=== PATIENT | male | born 1935 | race Caucasian/White ===

== ENCOUNTER → 2018-07-31 | Outpatient (CLI) | payer MEDICARE, BC ==
[~2018-07-31] VITALS: Ht 182.9 cm; Wt 104.3 kg
[~2018-07-31] MED LIST: AML5T PO; ASP81CT PO; COLC0.6T7 PO; FLUT50DI INH; IBUP200T48 PO; LRT10T; MELO-195 PO; METH2.5T PO; MTF500T PO; PANT40SU PO; PROP120C3 PO; REGADENOSON 0.4 MG/5 ML SYR (LEXISCAN) IV ONE; SMV10T PO; TRAM50TA2 PO; Tramadol Hcl PO; [UNRECOGNIZED DRUG - OTHER]
[2018-07-31] MEDS: CATHETER FLUSH 10 ML SYR IV PRN ×2 (07:32→09:12)
[2018-07-31 09:10] VITALS: BP 155/90
--- NOTE | 2018-08-01 13:45 | STRESS TEST ---
DATE OF SERVICE: 07/31/2018 RESTING AND POST REGADENOSON TECHNETIUM-99M TETROFOSMIN SPECT CT IMAGING ORDERING PHYSICIAN: Adriane Lubin APRN PRIMARY CARE PHYSICIAN: Dr. Roberson. CLINICAL DIAGNOSIS: Coronary artery disease. Baseline images were carried out after injection of 10.12 mCi of technetium-99m Tetrofosmin for stress imaging. This was followed by 0.4 mg of regadenoson and 31.3 mCi of technetium-99m Tetrofosmin for stress imaging. The electrocardiogram showed sinus rhythm with right bundle branch block. The electrocardiogram did not change significantly with regadenoson infusion. The patient tolerated the procedure well. Review of images at rest and following stress does not indicate significant perfusion defects consistent with significant myocardial ischemia or infarction. Gated images show normal global left ventricular systolic function and normal regional wall motion. Left ventricular ejection fraction is calculated to be 65%. Left ventricular end diastolic volume is 55 mL. TID is absent (1.08). CONCLUSIONS: 1. No evidence of any significant myocardial ischemia or infarction is seen. 2. Normal regional wall motion. 3. Normal global left ventricular systolic function with a calculated ejection fraction of 65%. Job ID: [id number] DocumentID: [id number] Dictated Date: 08/01/2018 12:44:47 [employer] Date: 08/01/2018 13:45:10 Dictated By: SWATI GONZALEZ MD, MA, FACP, FACC,
== END ==
LOC: CARD 07:17
PROVIDERS: ATTEND Nurse Practitioner Family
DX: I25.10 Atherosclerotic heart disease of native coronary artery without angina pectoris (principal); I77.9 Disorder of arteries and arterioles, unspecified
CPT/HCPCS: 78452; 93017

== ENCOUNTER 2019-06-22 15:03 | Emergency (ER) | payer MEDICARE, BC ==
[~2019-06-22] VITALS: Ht 182.9 cm; Wt 104.5 kg
[~2019-06-22 15:03] MED LIST changes: -REGADENOSON 0.4 MG/5 ML SYR (LEXISCAN) IV ONE
--- NOTE | 2019-06-22 15:03 | NUR ---
NOTIFIED RN AND HOUSE SUP JYOTI OF PT CONDITION WHEN CHECKING IN.
--- OUTSIDE RECORDS SUMMARY | 2019-06-22 15:14 | XMS REPORT | CCD ---
Author Author Ravinder Roberson Organization Renita Roberson MD, [facility] Address [address] [place] [address] Phone Care Team Providers Care Driver License Reviewing Officer Name Role Phone PP Unavailable CCM Unavailable Summary Purpose Interface Exchange Insurance Providers Payer name Policy type / Coverage type Covered green party ID Effective Begin Date Effective End Date WPS Medicare Part B Medicare Part B [id number] Unknown [facility] icare Part B [id number] Un known Family history Father Diagnosis Age At Onset Hypertension Unknown Brother Diagnosis Age At Onset Coronary Artery Disease Unknown Cancer Unknown Hypertension Unknown Mother Diagnosis Age At Onset Hypertension Unknown Social History Social History Element Codes Description Effective Dates Marital status Unknown M arried 12/10/2013 Number of children Unknown 2 12/10/2013 Employment Unknown Retir ed 12/10/[address]: 2375803 Former smoker quit 1980 12/10/[address]: 732036098 Never drinks alcohol 12/10/2013 Allergies, Adverse Reactions, Alerts Substance Reaction Codes Entered Date Inactivated Date Status * NO KNOWN ENVIRONME NTAL ALLERGIES Unknown 12/10/2013 No Inactive Date Active * NO KNOWN FOOD GERSON RGIES Unknown 12/10/2013 No Inactive Date Active CODEINE abdominal pain RxNorm: 2670 12/10/2013 No Inactive Date Active hydrocodone abdominal pain Unknown 12/10/2013 No Inactive Date Active Past Medical History Illness Codes Condition Status Onset Date Resolved Date Actinic keratosis ICD-9: 702.0 ICD-10: L57.0 Active 01/12/2015 Unknown Essential (primary) hypertension ICD-9: 401.1 ICD-10: I10 Active 05/30/2018 Unknown Essential tremor ICD-9: 333.1 ICD-10: G25.0 Active 03/13/2018 Unknown Type 2 diabetes glenn itus without complications ICD-9: 250.00 ICD-10: E11.9 Active 01/18/2016 Unknown Essential (primary) hypertension ICD-9: 401.9 ICD-10: I10 Active 12/10/2013 Unknown Hypothyroidism, unsp ecified ICD-9: 244.9 ICD-10: E03.9 Active 01/17/2017 Unknown Other acute sinusitis ICD-9: 461.8 ICD-10: J01.80 Active 06/28/2018 Unknown Other allergic rhinitis ICD-9: 477.8 ICD-10: J30.89 Active 06/28/2018 Unknown Mixed hyperlipidemia ICD-9: 272.2 ICD-10: E78.2 Active 01/18/2016 Unknown Myalgia, other site ICD- 9: 729.1 ICD-10: M79.18 Active 05/30/2018 Unknown Sciatica Unknown Active 01/16/2018 Unknow n Lumbago with sciatic a, right side ICD-9: 724.3 ICD-10: M54.41 Active 01/16/2018 Unknown Hypothryroidism Unknown Active 01/17/2017 Unknow n Diabetes Unknown Active 07/14/2016 Unknow n Personal history of diseases of the skin and subcutaneous tissue ICD-9: V13.3 ICD-10: Z87.2 Active 01/12/2015 Unknown Other abnormal glucose ICD-9: 790.29 ICD-10: R73.09 Active 12/02/2014 Unknown Hypertension Unknown Active 12/10/2013 Unknow n Benign paroxysmal po sitional vertigo ICD-9: 386.11 Active Unknown ESSENTIAL HYPERTENSION ICD-9: 401.9 Active 12/10/2013 Unknown Wrist pain, chronic ICD- 9: 719.43 Active 12/10/2013 Unknown Problems Condition Codes Effectiv e Dates Condition Status Actinic keratosis ICD-9: 702.0 ICD-10: L57.0 01/12/2015 Active Essential (primary) hypertension ICD-9: 401.1 ICD-10: I10 05/30/2018 Active Essential tremor ICD-9: 333.1 ICD-10: G25.0 03/13/2018 Active Type 2 diabetes glenn itus without complications ICD-9: 250.00 ICD-10: E11.9 01/18/2016 Active Essential (primary) hypertension ICD-9: 401.9 ICD-10: I10 12/10/2013 Active Hypothyroidism, unsp ecified ICD-9: 244.9 ICD-10: E03.9 01/17/2017 Active Other acute sinusitis ICD-9: 461.8 ICD-10: J01.80 06/28/2018 Active Other allergic rhinitis ICD-9: 477.8 ICD-10: J30.89 06/28/2018 Active Mixed hyperlipidemia ICD-9: 272.2 ICD-10: E78.2 01/18/2016 Active Myalgia, other site ICD- 9: 729.1 ICD-10: M79.18 05/30/2018 Active Sciatica Unknown 01/16/2018 Active Lumbago with sciatic a, right side ICD-9: 724.3 ICD-10: M54.41 01/16/2018 Active Hypothryroidism Unknown 01/17/2017 Active Diabetes Unknown 07/14/2016 Active Personal history of diseases of the skin and subcutaneous tissue ICD-9: V13.3 ICD-10: Z87.2 01/12/2015 Active Other abnormal glucose ICD-9: 790.29 ICD-10: R73.09 12/02/2014 Active Hypertension Unknown 12/10/2013 Active Benign paroxysmal po sitional vertigo ICD-9: 386.11 12/10/2013 Active ESSENTIAL HYPERTENSION ICD-9: 401.9 12/10/2013 Active Wrist pain, chronic ICD- 9: 719.43 12/10/2013 Active Medications Medication Codes Instruc tions Start Date Stop Date Sta Fill Instructions metformin ER 500 mg tablet,extended release 24hr RxNorm: 3945138 TAKE 1 TABLET BY WILMER TH TWICE DAILY 10/15/2018 No Stop Date Active metformin ER 500 mg tablet,extended release 24hr RxNorm: 3148403 TAKE 1 TABLET BY WILMER TH TWICE DAILY 10/15/2018 No Stop Date Active metformin ER 500 mg tablet,extended release 24hr RxNorm: 6412523 TAKE 1 TABLET BY WILMER TH TWICE DAILY 10/15/2018 No Stop Date Active Kenalog 40 mg/mL darrian pension for injection RxNorm: 3476922 Milliliter(s) Inj 06/28/2018 06/28/2018 In active Keflex 500 mg capsule RxNorm: 723309 1 Capsule(s) PO TID 06/28/2018 07/07/2018 Inactive atorvastatin 10 mg t ablet RxNorm: 362972 1 Tablet(s) PO QHS 05/30/2018 05/24/2019 Active amlodipine 10 mg tablet RxNorm: 802364 1 Tablet(s) PO daily by Dr. Jade 05/30/2018 12/25/2018 Ac tive Requip 0.5 mg tablet RxNorm: 778419 1 Tablet(s) PO BID morning and early remi felecia 04/30/2018 08/28/2018 Inactive he just filled a requip 0.25mg rx - he w ill double his meds then call when he needs this filled metformin ER 500 mg tablet,extended release 24hr RxNorm: 3936409 Tablet(s) TAKE ONE TABLET BY MOUTH TWICE DAILY 04/30/2018 10/14/2018 Inactive Requip 0.5 mg tablet RxNorm: 035805 1 Tablet(s) PO BID morning and early remi felecia 04/18/2018 04/29/2018 Inactive he just filled a requip 0.25mg rx - he w ill double his meds then call when he needs this filled amlodipine 5 mg tablet RxNorm: 285309 1 Tablet(s) PO daily by Dr. Jade 03/13/2018 05/29/2018 In active Requip 0.25 mg tablet RxNorm: 924740 1 Tablet(s) PO BID morning and early remi felecia 03/13/2018 04/17/2018 Inactive triamcinolone aceton andrews 0.1 % topical cream RxNorm: 3324239 1 Application TOP BI D as needed 01/16/2018 05/15/2018 Inactive he would like 3 15 gram tub es triamcinolone aceton andrews 0.1 % topical cream RxNorm: 9126192 1 Application TOP BI D as needed 01/16/2018 01/15/2018 Inactive he would like 3 15 gram tub es amlodipine 10 mg tablet RxNorm: 770003 1 Tablet(s) PO daily by Dr. Jade 01/16/2018 03/12/2018 In active metformin ER 500 mg tablet,extended release 24hr RxNorm: 4535644 TAKE ONE TABLET BY MOUTH TWICE DAILY 12/04/2017 04/29/2018 Inactive metformin ER 500 mg tablet,extended release 24hr RxNorm: 2391214 TAKE ONE TABLET BY MOUTH TWICE DAILY 03/22/2017 12/03/2017 Inactive Tylenol PM Extra Str ength 25 mg-500 mg tablet RxNorm: 4888603 1 Tablet(s) PO QHS 01/17/2017 No Stop Date Active triamcinolone aceton andrews 0.1 % topical cream RxNorm: 7862236 1 Application TOP BI D as needed 01/17/2017 05/16/2017 Inactive metformin ER 500 mg tablet,extended release 24hr RxNorm: 401216 TAKE ONE TABLET BY MOUTH TWICE DAILY 09/27/2016 03/21/2017 Inactive triamcinolone aceton andrews 0.1 % topical cream RxNorm: 2670423 1 Application TOP BI D as needed 07/19/2016 09/16/2016 Inactive metformin ER 500 mg tablet,extended release 24hr RxNorm: 364589 1 Tablet(s) PO BID 08/19/2015 09/26/2016 In active metformin ER 500 mg tablet,extended release 24hr RxNorm: 924486 1 Tablet(s) PO BID 08/14/2015 08/18/2015 In active metformin ER 500 mg tablet,extended release 24hr RxNorm: 014938 1 Tablet(s) PO BID 04/09/2015 08/13/2015 In active triamcinolone aceton andrews 0.1 % topical cream RxNorm: 9095358 1 Application TOP BI D as needed 01/13/2015 07/18/2016 Inactive Flonase Allergy Reli ef 50 mcg/actuation nasal spray,suspension RxNorm: 1 Shepherd NASAL BID 12/03/2014 01/12/2015 Inactive triamcinolone aceton andrews 0.1 % topical cream RxNorm: 5853727 1 Application TOP BI D as needed 06/04/2014 01/12/2015 Inactive metformin ER 500 mg tablet,extended release 24hr RxNorm: 712830 1 Tablet(s) PO BID 03/05/2014 04/08/2015 In active multivitamin oral RxNorm: 55278 oral No Start Date Active Vitamin B-12 oral RxNorm: 40653 oral No Start Date Active Baby Aspirin 81 mg c hewable tablet RxNorm: 984947 1 Tablet(s) PO daily No Start Date Active Inderal LA 160 mg ca psule,extended release RxNorm: 272938 1 Capsule(s) PO daily No Start Date Active amlodipine 5 mg tablet RxNorm: 341275 1 Tablet(s) PO daily No Start Date 01/15/2018 Inactive multivitamin tablet RxNorm: 1 Tablet(s) PO daily No Start Date 01/16/2017 Inactive tramadol 50 mg tablet RxNorm: 789083 1 Tablet(s) PO TID No Start Date 07/21/2015 Inactive Tylenol PM Extra Str ength 25 mg-500 mg tablet RxNorm: 3025229 2 Tablet(s) PO QHS No Start Date 01/16/2017 Inactive metformin ER 500 mg tablet,extended release 24hr RxNorm: 796357 1 Tablet(s) PO BID No Start Date 03/04/2014 Inactive Methotrexate (Anti-R heumatic) 2.5 mg tablet RxNorm: 760846 8 Tablet(s) PO one ti me per week No Start Date 07/21/2015 Inactive Protonix 40 mg table t,delayed release RxNorm: 699815 1 Tablet(s) PO daily No Start Date 12/02/2014 Inactive Vitamin B-12 1,000 m cg tablet RxNorm: 095340 1 Tablet(s) PO daily No Start Date 01/16/2017 Inactive simvastatin 10 mg ta blet RxNorm: 967402 1 Tablet(s) PO daily No Start Date 05/29/2018 Inactive propranolol ER 120 m g capsule,24 hr,extended release RxNorm: 286381 1 Capsule(s) PO daily No Start Date 07/17/2017 Inactive Medication Administered Medication Codes Instruc tions Start Date Status Kenalog 40 mg/mL suspension for injection RxNorm: 9856246 Milliliter 06/28/2018 No longer Active Immunizations Vaccine Codes Date Status Influenza CVX: 141 11/27 completed Assessments Condition Codes Effectiv e Dates Type 2 diabetes mellitus without complications ICD-10: E11.9 ICD-9: 250.00 08/29/2018 Essential (primary) hypertension ICD -10: I10 ICD-9: 401.1 08/29/2018 Essential tremor ICD-10: G25.0 ICD-9: 333.1 08/29/2018 Actinic keratosis ICD-10: L57.0 ICD-9: 702.0 08/29/2018 Hypothyroidism, unspecified ICD-10: E03.9 ICD-9: 244.9 08/14/2018 Essential (primary) hypertension ICD -10: I10 ICD-9: 401.9 08/14/2018 Other allergic rhinitis ICD-10: J30. 89 ICD-9: 477.8 06/28/2018 Other acute sinusitis ICD-10: J01.80 ICD-9: 461.8 06/28/2018 Myalgia, other site ICD-10: M79.18 ICD-9: 729.1 05/30/2018 Mixed hyperlipidemia ICD-10: E78.2 ICD-9: 272.2 05/30/2018 Lumbago with sciatica, right side IC D-10: M54.41 ICD-9: 724.3 01/16/2018 Personal history of diseases of the skin and subcutaneous tissue ICD-10: Z87.2 ICD-9: V13.3 01/13/2015 Other abnormal glucose ICD-10: R73.0 9 ICD-9: 790.29 12/03/2014 Benign paroxysmal positional vertigo ICD-9: 386.11 06/04/2014 ESSENTIAL HYPERTENSION ICD-9: 401.9 06/04/2014 Wrist pain, chronic ICD-9: 719.43 12/10/2013 Reason For Visit Reason For Visit Effective Dates Notes dyskinesia or tremor 08/29/2018 cough 06/28/2018 dyskinesia or tremor 05/30/2018 dyskinesia or tremor 04/18/2018 dyskinesia or tremor 03/13/2018 skin lesion 01/16/2018 hypertension 07/18/2017 hypertension 01/17/2017 skin lesion 07/19/2016 skin lesion 01/19/2016 hypertension 07/22/2015 rash 01/13/2015 postnasal drip 12/03/2014 hand pain 06/04/2014 lef t hand pain/tremor- Carpal tunnel hx hand pain 12/10/2013 lef t hand pain/tremor- Carpal tunnel hx Results Observation Observation Code Item Item Code Result Date Free T4 Xje511 FREE T4 0.88 ng/dL 08/16/2018 Comp Metabolic Yln751 NA 139 mEq/L 08/16/2018 Comp Metabolic Xsy310 K 4.3 mEq/L 08/16/2018 Comp Metabolic Mry370 CL 102 mEq/L 08/16/2018 Comp Metabolic Anm837 CO2 27.0 mEq/L 08/16/2018 Comp Metabolic Cue049 AN ION GAP 14 08/16/2018 Comp Metabolic Dca374 GL UCOSE 144 mg/dL 08/16/2018 Comp Metabolic Rdu266 Cr eat 0.8 mg/dL 08/16/2018 Comp Metabolic Ggt803 eG FR 96 ml/min/1.73m2 08/16 Comp Metabolic Pcy420 BUN 10 mg/dL 08/16/2018 Comp Metabolic Xck055 B/ C Ratio 12.3 Ratio 08/16/2018 Comp Metabolic Pbo849 CA LCIUM 9.2 mg/dL 08/16/2018 Comp Metabolic Qkh976 AL K PHOS 55 U/L 08/16/2018 Comp Metabolic Jvt930 T(SGOT) 13 U/L 08/16/2018 Comp Metabolic Ynz744 AL T(SGPT) 17 U/L 08/16/2018 Comp Metabolic Wfm061 BI LI T 0.6 mg/dL 08/16/2018 Comp Metabolic Mrl203 AL BUMIN 3.9 g/dL 08/16/2018 Comp Metabolic Dgc266 TP RO 6.4 g/dL 08/16/2018 Comp Metabolic Dmc146 GL OB 2.5 g/dL 08/16/2018 Comp Metabolic Zzs307 A/ G Ratio 1.6 Ratio 08/16/2018 Comp Metabolic Xtc775 Os mo 279 mOsmo 08/16/2018 %Hba1C Pmo214 % HbA1c 25312-5 6.9 % 08/16/2018 %Hba1C Edw294 Gluc Ave 151 mg/dL 08/16/2018 Tsh Ord6 TSH (3rd IS) 6.78 uIU/mL 08/16/2018 Cbc With Differential Ord2 WBC 10.89 K/ul 08/16/2018 Cbc With Differential Ord2 RBC 4.73 M/ul 08/16/2018 Cbc With Differential Ord2 HGB 14.7 g/dl 08/16/2018 Cbc With Differential Ord2 HCT 44.1 % 08/16/2018 Cbc With Differential Ord2 Neut% 61.4 % 08/16/2018 Cbc With Differential Ord2 MCV 93.2 fl 08/16/2018 Cbc With Differential Ord2 Lymph% 29.8 % 08/16/2018 Cbc With Differential Ord2 MCH 31.1 pg 08/16/2018 Cbc With Differential Ord2 [place]% 7.4 % 08/16/2018 Cbc With Differential Ord2 MCHC 33.3 pg 08/16/2018 Cbc With Differential Ord2 Eos% 1.0 % 08/16/2018 Cbc With Differential Ord2 PLT 266 K/ul 08/16/2018 Cbc With Differential Ord2 Baso% 0.4 % 08/16/2018 Cbc With Differential Ord2 RDW 13.8 % 08/16/2018 Cbc With Differential Ord2 Neut ABS# 6.69 K/ul 08/16/2018 Cbc With Differential Ord2 Lymph ABS# 3.24 K/ul 08/16/2018 Cbc With Differential Ord2 [place] ABS# 0.8 K/ul 08/16/2018 Cbc With Differential Ord2 Eos ABS# 0.1 K/ul 08/16/2018 Cbc With Differential Ord2 Baso ABS# 0.0 K/ul 08/16/2018 Cbc With Differential Ord2 WBC 9.05 K/ul 01/11/2018 Cbc With Differential Ord2 RBC 4.64 M/ul 01/11/2018 Cbc With Differential Ord2 HGB 14.4 g/dl 01/11/2018 Cbc With Differential Ord2 HCT 43.3 % 01/11/2018 Cbc With Differential Ord2 Neut% 54.8 % 01/11/2018 Cbc With Differential Ord2 MCV 93.3 fl 01/11/2018 Cbc With Differential Ord2 Lymph% 32.0 % 01/11/2018 Cbc With Differential Ord2 MCH 31.0 pg 01/11/2018 Cbc With Differential Ord2 [place]% 8.8 % 01/11/2018 Cbc With Differential Ord2 MCHC 33.3 pg 01/11/2018 Cbc With Differential Ord2 Eos% 3.8 % 01/11/2018 Cbc With Differential Ord2 PLT 228 K/ul 01/11/2018 Cbc With Differential Ord2 Baso% 0.6 % 01/11/2018 Cbc With Differential Ord2 RDW 13.4 % 01/11/2018 Cbc With Differential Ord2 Neut ABS# 4.96 K/ul 01/11/2018 Cbc With Differential Ord2 Lymph ABS# 2.90 K/ul 01/11/2018 Cbc With Differential Ord2 [place] ABS# 0.8 K/ul 01/11/2018 Cbc With Differential Ord2 Eos ABS# 0.3 K/ul 01/11/2018 Cbc With Differential Ord2 Baso ABS# 0.1 K/ul 01/11/2018 %Hba1C Dcz385 % HbA1c 58957-5 6.0 % 01/11/2018 %Hba1C Odk343 Gluc Ave 126 mg/dL 01/11/2018 Tsh Ord6 TSH (3rd IS) 5.07 uIU/mL 01/11/2018 Lipid Ord30 CHOL 131 mg/dL 01/11/2018 Lipid Ord30 HDL 36.0 mg/dl 01/11/2018 Lipid Ord30 TRIG 59 mg/dL 01/11/2018 Lipid Ord30 LDL 83 mg/dL 01/11/2018 Lipid Ord30 C/HDL 3.6 Ratio 01/11/2018 Free T4 Dzs028 FREE T4 1.00 ng/dL 01/11/2018 Comp Metabolic Jnr334 NA 141 mEq/L 01/11/2018 Comp Metabolic Hul572 K 4.1 mEq/L 01/11/2018 Comp Metabolic Plf443 CL 104 mEq/L 01/11/2018 Comp Metabolic Ktt416 CO2 30.0 mEq/L 01/11/2018 Comp Metabolic Qcy003 AN ION GAP 11 01/11/2018 Comp Metabolic Rwt922 GL UCOSE 131 mg/dL 01/11/2018 Comp Metabolic Vec992 Cr eat 0.9 mg/dL 01/11/2018 Comp Metabolic Hgb451 eG FR 86 ml/min/1.73m2 01/11 Comp Metabolic Dfh600 BUN 10 mg/dL 01/11/2018 Comp Metabolic Lbb446 B/ C Ratio 11.2 Ratio 01/11/2018 Comp Metabolic Ksb044 CA LCIUM 9.1 mg/dL 01/11/2018 Comp Metabolic Gea311 AL K PHOS 49 U/L 01/11/2018 Comp Metabolic Ose288 T(SGOT) 14 U/L 01/11/2018 Comp Metabolic Rds772 AL T(SGPT) 13 U/L 01/11/2018 Comp Metabolic Ntt531 BI LI T 0.6 mg/dL 01/11/2018 Comp Metabolic Tum675 AL BUMIN 4.0 g/dL 01/11/2018 Comp Metabolic Btn326 TP RO 6.4 g/dL 01/11/2018 Comp Metabolic Mam457 GL OB 2.4 g/dL 01/11/2018 Comp Metabolic Jag790 A/ G Ratio 1.6 Ratio 01/11/2018 Comp Metabolic Aqm110 Os mo 282 mOsmo 01/11/2018 %Hba1C Erp221 % HbA1c 23234-0 6.2 % 07/14/2017 %Hba1C Ngr431 Gluc Ave 131 mg/dL 07/14/2017 Cbc With Differential Ord2 WBC 9.23 K/ul 07/14/2017 Cbc With Differential Ord2 RBC 4.85 M/ul 07/14/2017 Cbc With Differential Ord2 HGB 15.1 g/dl 07/14/2017 Cbc With Differential Ord2 HCT 44.7 % 07/14/2017 Cbc With Differential Ord2 Neut% 57.3 % 07/14/2017 Cbc With Differential Ord2 MCV 92.2 fl 07/14/2017 Cbc With Differential Ord2 Lymph% 29.9 % 07/14/2017 Cbc With Differential Ord2 MCH 31.1 pg 07/14/2017 Cbc With Differential Ord2 [place]% 8.5 % 07/14/2017 Cbc With Differential Ord2 MCHC 33.8 pg 07/14/2017 Cbc With Differential Ord2 Eos% 3.9 % 07/14/2017 Cbc With Differential Ord2 PLT 241 K/ul 07/14/2017 Cbc With Differential Ord2 Baso% 0.4 % 07/14/2017 Cbc With Differential Ord2 RDW 13.9 % 07/14/2017 Cbc With Differential Ord2 Neut ABS# 5.29 K/ul 07/14/2017 Cbc With Differential Ord2 Lymph ABS# 2.76 K/ul 07/14/2017 Cbc With Differential Ord2 [place] ABS# 0.8 K/ul 07/14/2017 Cbc With Differential Ord2 Eos ABS# 0.4 K/ul 07/14/2017 Cbc With Differential Ord2 Baso ABS# 0.0 K/ul 07/14/2017 Free T4 Zzw857 FREE T4 0.97 ng/dL 07/14/2017 Tsh Ord6 TSH (3rd IS) 4.46 uIU/mL 07/14/2017 Comp Metabolic Ufe760 NA 140 mEq/L 07/14/2017 Comp Metabolic Neo804 K 4.2 mEq/L 07/14/2017 Comp Metabolic Hxd846 CL 103 mEq/L 07/14/2017 Comp Metabolic Atf698 CO2 29.0 mEq/L 07/14/2017 Comp Metabolic Ymi128 AN ION GAP 12 07/14/2017 Comp Metabolic Ckj354 GL UCOSE 127 mg/dL 07/14/2017 Comp Metabolic Tpd869 Cr eat 0.9 mg/dL 07/14/2017 Comp Metabolic Pzy848 eG FR 90 ml/min/1.73m2 07/14 Comp Metabolic Zwo854 BUN 8 mg/dL 07/14/2017 Comp Metabolic Lqr462 B/ C Ratio 9.3 Ratio 07/14/2017 Comp Metabolic Mhk605 CA LCIUM 9.5 mg/dL 07/14/2017 Comp Metabolic Yav543 AL K PHOS 77 U/L 07/14/2017 Comp Metabolic Dlp448 T(SGOT) 18 U/L 07/14/2017 Comp Metabolic Iqg018 AL T(SGPT) 20 U/L 07/14/2017 Comp Metabolic Bke995 BI LI T 0.7 mg/dL 07/14/2017 Comp Metabolic Ode717 AL BUMIN 4.4 g/dL 07/14/2017 Comp Metabolic Taq523 TP RO 6.9 g/dL 07/14/2017 Comp Metabolic Mzw721 GL OB 2.6 g/dL 07/14/2017 Comp Metabolic Hyk225 A/ G Ratio 1.7 Ratio 07/14/2017 Comp Metabolic Jay296 Os mo 279 mOsmo 07/14/2017 Free T4 Jja823 FREE T4 0.97 ng/dL 04/21/2017 Tsh Ord6 TSH (3rd IS) 4.44 uIU/mL 04/21/2017 %Hba1C Prr871 % HbA1c 98751-0 6.3 % 01/06/2017 %Hba1C Jgm671 Gluc Ave 134 mg/dL 01/06/2017 Cbc With Differential Ord2 WBC 10.09 K/ul 01/06/2017 Cbc With Differential Ord2 RBC 4.64 M/ul 01/06/2017 Cbc With Differential Ord2 HGB 14.5 g/dl 01/06/2017 Cbc With Differential Ord2 HCT 43.2 % 01/06/2017 Cbc With Differential Ord2 Neut% 51.8 % 01/06/2017 Cbc With Differential Ord2 MCV 93.1 fl 01/06/2017 Cbc With Differential Ord2 Lymph% 35.7 % 01/06/2017 Cbc With Differential Ord2 MCH 31.3 pg 01/06/2017 Cbc With Differential Ord2 [place]% 9.2 % 01/06/2017 Cbc With Differential Ord2 MCHC 33.6 pg 01/06/2017 Cbc With Differential Ord2 Eos% 2.9 % 01/06/2017 Cbc With Differential Ord2 PLT 240 K/ul 01/06/2017 Cbc With Differential Ord2 Baso% 0.4 % 01/06/2017 Cbc With Differential Ord2 RDW 14.0 % 01/06/2017 Cbc With Differential Ord2 Neut ABS# 5.23 K/ul 01/06/2017 Cbc With Differential Ord2 Lymph ABS# 3.60 K/ul 01/06/2017 Cbc With Differential Ord2 [place] ABS# 0.9 K/ul 01/06/2017 Cbc With Differential Ord2 Eos ABS# 0.3 K/ul 01/06/2017 Cbc With Differential Ord2 Baso ABS# 0.0 K/ul 01/06/2017 Lipid Ord30 CHOL 134 mg/dL 01/06/2017 Lipid Ord30 HDL 35.0 mg/dl 01/06/2017 Lipid Ord30 TRIG 111 mg/dL 01/06/2017 Lipid Ord30 LDL 77 mg/dL 01/06/2017 Lipid Ord30 C/HDL 3.8 Ratio 01/06/2017 Comp Metabolic Rlg273 NA 139 mEq/L 01/06/2017 Comp Metabolic Nfs307 K 4.2 mEq/L 01/06/2017 Comp Metabolic Xgp624 CL 103 mEq/L 01/06/2017 Comp Metabolic Bji403 CO2 29.0 mEq/L 01/06/2017 Comp Metabolic Qdj960 AN ION GAP 11 01/06/2017 Comp Metabolic Pkz506 GL UCOSE 121 mg/dL 01/06/2017 Comp Metabolic Gme958 Cr eat 0.8 mg/dL 01/06/2017 Comp Metabolic Ldv478 eG FR 101 ml/min/1.73m2 12/28 Comp Metabolic Dhd670 BUN 9 mg/dL 01/06/2017 Comp Metabolic Qgf451 B/ C Ratio 11.5 Ratio 01/06/2017 Comp Metabolic Lal965 CA LCIUM 9.3 mg/dL 01/06/2017 Comp Metabolic Yke785 AL K PHOS 48 U/L 01/06/2017 Comp Metabolic Dod766 T(SGOT) 15 U/L 01/06/2017 Comp Metabolic Ybr923 AL T(SGPT) 17 U/L 01/06/2017 Comp Metabolic Zgz176 BI LI T 0.6 mg/dL 01/06/2017 Comp Metabolic Jsb241 AL BUMIN 4.0 g/dL 01/06/2017 Comp Metabolic Igo616 TP RO 6.4 g/dL 01/06/2017 Comp Metabolic Oza356 GL OB 2.4 g/dL 01/06/2017 Comp Metabolic Sgt659 A/ G Ratio 1.7 Ratio 01/06/2017 Comp Metabolic Noj133 Os mo 277 mOsmo 01/06/2017 Tsh Ord6 hTSH II 5.22 uIU/mL 01/06/2017 Tsh Ord6 hTSH II 3.88 uIU/mL 07/14/2016 Lipid Ord30 CHOL 120 mg/dL 07/14/2016 Lipid Ord30 HDL 36.0 mg/dl 07/14/2016 Lipid Ord30 TRIG 67 mg/dL 07/14/2016 Lipid Ord30 LDL 71 mg/dL 07/14/2016 Lipid Ord30 C/HDL 3.3 Ratio 07/14/2016 Cbc With Differential Ord2 WBC 8.06 K/ul 07/14/2016 Cbc With Differential Ord2 RBC 4.66 M/ul 07/14/2016 Cbc With Differential Ord2 HGB 14.4 g/dl 07/14/2016 Cbc With Differential Ord2 HCT 42.8 % 07/14/2016 Cbc With Differential Ord2 Neut% 56.7 % 07/14/2016 Cbc With Differential Ord2 MCV 91.8 fl 07/14/2016 Cbc With Differential Ord2 Lymph% 29.0 % 07/14/2016 Cbc With Differential Ord2 MCH 30.9 pg 07/14/2016 Cbc With Differential Ord2 [place]% 8.4 % 07/14/2016 Cbc With Differential Ord2 MCHC 33.6 pg 07/14/2016 Cbc With Differential Ord2 Eos% 5.3 % 07/14/2016 Cbc With Differential Ord2 PLT 210 K/ul 07/14/2016 Cbc With Differential Ord2 Baso% 0.6 % 07/14/2016 Cbc With Differential Ord2 RDW 13.8 % 07/14/2016 Cbc With Differential Ord2 Neut ABS# 4.56 K/ul 07/14/2016 Cbc With Differential Ord2 Lymph ABS# 2.34 K/ul 07/14/2016 Cbc With Differential Ord2 [place] ABS# 0.7 K/ul 07/14/2016 Cbc With Differential Ord2 Eos ABS# 0.4 K/ul 07/14/2016 Cbc With Differential Ord2 Baso ABS# 0.1 K/ul 07/14/2016 Comp Metabolic Gmc797 NA 139 mEq/L 07/14/2016 Comp Metabolic Vrk155 K 4.4 mEq/L 07/14/2016 Comp Metabolic Vhi857 CL 103 mEq/L 07/14/2016 Comp Metabolic Gud999 CO2 31.0 mEq/L 07/14/2016 Comp Metabolic Zlr804 AN ION GAP 9 07/14/2016 Comp Metabolic Lbj803 GL UCOSE 109 mg/dL 07/14/2016 Comp Metabolic Iul674 Cr eat 0.9 mg/dL 07/14/2016 Comp Metabolic Nrl422 eG FR 88 ml/min/1.73m2 07/14 Comp Metabolic Qcs969 BUN 12 mg/dL 07/14/2016 Comp Metabolic Lzd426 B/ C Ratio 13.6 Ratio 07/14/2016 Comp Metabolic Jsw594 CA LCIUM 8.9 mg/dL 07/14/2016 Comp Metabolic Vxg809 AL K PHOS 42 U/L 07/14/2016 Comp Metabolic Xpa702 T(SGOT) 14 U/L 07/14/2016 Comp Metabolic Nst476 AL T(SGPT) 13 U/L 07/14/2016 Comp Metabolic Tsw556 BI LI T 0.6 mg/dL 07/14/2016 Comp Metabolic Ogr858 AL BUMIN 3.8 g/dL 07/14/2016 Comp Metabolic Gai203 TP RO 6.2 g/dL 07/14/2016 Comp Metabolic Xbf306 GL OB 2.4 g/dL 07/14/2016 Comp Metabolic Nih642 A/ G Ratio 1.6 Ratio 07/14/2016 Comp Metabolic Mcp901 Os mo 278 mOsmo 07/14/2016 %Hba1C Yxv648 % HbA1c 36807-9 5.8 % 07/14/2016 %Hba1C Dml793 Gluc Ave 120 mg/dL 07/14/2016 Cbc With Differential Ord2 WBC 9.03 K/ul 01/15/2016 Cbc With Differential Ord2 RBC 4.44 M/ul 01/15/2016 Cbc With Differential Ord2 HGB 13.9 g/dl 01/15/2016 Cbc With Differential Ord2 HCT 40.6 % 01/15/2016 Cbc With Differential Ord2 Neut% 57.0 % 01/15/2016 Cbc With Differential Ord2 MCV 91.4 fl 01/15/2016 Cbc With Differential Ord2 Lymph% 28.0 % 01/15/2016 Cbc With Differential Ord2 MCH 31.3 pg 01/15/2016 Cbc With Differential Ord2 [place]% 8.4 % 01/15/2016 Cbc With Differential Ord2 MCHC 34.2 pg 01/15/2016 Cbc With Differential Ord2 Eos% 6.0 % 01/15/2016 Cbc With Differential Ord2 PLT 211 K/ul 01/15/2016 Cbc With Differential Ord2 Baso% 0.6 % 01/15/2016 Cbc With Differential Ord2 RDW 13.5 % 01/15/2016 Cbc With Differential Ord2 Neut ABS# 5.15 K/ul 01/15/2016 Cbc With Differential Ord2 Lymph ABS# 2.53 K/ul 01/15/2016 Cbc With Differential Ord2 [place] ABS# 0.8 K/ul 01/15/2016 Cbc With Differential Ord2 Eos ABS# 0.5 K/ul 01/15/2016 Cbc With Differential Ord2 Baso ABS# 0.1 K/ul 01/15/2016 Lipid Ord30 CHOL 119 mg/dL 01/15/2016 Lipid Ord30 HDL 32.0 mg/dl 01/15/2016 Lipid Ord30 TRIG 120 mg/dL 01/15/2016 Lipid Ord30 LDL 63 mg/dL 01/15/2016 Lipid Ord30 C/HDL 3.7 Ratio 01/15/2016 %Hba1C Kqa726 % HbA1c 45015-4 5.9 % 01/15/2016 %Hba1C Bqc925 Gluc Ave 123 mg/dL 01/15/2016 Tsh Ord6 hTSH II 2.98 uIU/mL 01/15/2016 Comp Metabolic Qag519 NA 137 mEq/L 01/15/2016 Comp Metabolic Ohm482 K 3.9 mEq/L 01/15/2016 Comp Metabolic Bdf355 CL 104 mEq/L 01/15/2016 Comp Metabolic Cuu710 CO2 26.0 mEq/L 01/15/2016 Comp Metabolic Kwt831 AN ION GAP 11 01/15/2016 Comp Metabolic Dpd709 GL UCOSE 113 mg/dL 01/15/2016 Comp Metabolic Ynp214 Cr eat 0.8 mg/dL 01/15/2016 Comp Metabolic Pji767 eG FR 101 ml/min/1.73m2 12/28 Comp Metabolic Fxg528 BUN 10 mg/dL 01/15/2016 Comp Metabolic Hks488 B/ C Ratio 12.8 Ratio 01/15/2016 Comp Metabolic Nlo583 CA LCIUM 9.1 mg/dL 01/15/2016 Comp Metabolic Giw966 AL K PHOS 51 U/L 01/15/2016 Comp Metabolic Klw951 T(SGOT) 16 U/L 01/15/2016 Comp Metabolic Nqx786 AL T(SGPT) 17 U/L 01/15/2016 Comp Metabolic Nck570 BI LI T 0.7 mg/dL 01/15/2016 Comp Metabolic Nxq336 AL BUMIN 3.9 g/dL 01/15/2016 Comp Metabolic Lwu010 TP RO 6.4 g/dL 01/15/2016 Comp Metabolic Rjy552 GL OB 2.5 g/dL 01/15/2016 Comp Metabolic Eru782 A/ G Ratio 1.5 Ratio 01/15/2016 Comp Metabolic Wdz944 Os mo 274 mOsmo 01/15/2016 Cbc With Differential Ord2 WBC 8.74 K/ul 07/10/2015 Cbc With Differential Ord2 RBC 4.46 M/ul 07/10/2015 Cbc With Differential Ord2 HGB 13.9 g/dl 07/10/2015 Cbc With Differential Ord2 HCT 41.3 % 07/10/2015 Cbc With Differential Ord2 Neut% 54.6 % 07/10/2015 Cbc With Differential Ord2 MCV 92.6 fl 07/10/2015 Cbc With Differential Ord2 Lymph% 32.7 % 07/10/2015 Cbc With Differential Ord2 MCH 31.2 pg 07/10/2015 Cbc With Differential Ord2 [place]% 8.5 % 07/10/2015 Cbc With Differential Ord2 MCHC 33.7 pg 07/10/2015 Cbc With Differential Ord2 Eos% 3.7 % 07/10/2015 Cbc With Differential Ord2 PLT 233 K/ul 07/10/2015 Cbc With Differential Ord2 Baso% 0.5 % 07/10/2015 Cbc With Differential Ord2 RDW 13.8 % 07/10/2015 Cbc With Differential Ord2 Neut ABS# 4.78 K/ul 07/10/2015 Cbc With Differential Ord2 Lymph ABS# 2.86 K/ul 07/10/2015 Cbc With Differential Ord2 [place] ABS# 0.7 K/ul 07/10/2015 Cbc With Differential Ord2 Eos ABS# 0.3 K/ul 07/10/2015 Cbc With Differential Ord2 Baso ABS# 0.0 K/ul 07/10/2015 Cbc With Differential Ord2 New Analyzer Notice Please note new ref ranges s [place] 03-11-2015 due to implemntation of new five part differential hematolgy analyzer. 07/10/2015 Tsh Ord6 hTSH II 3.50 uIU/mL 07/10/2015 Comp Metabolic Xkr535 NA 138 mEq/L 07/10/2015 Comp Metabolic Lxp968 K 4.5 mEq/L 07/10/2015 Comp Metabolic Wvg945 CL 102 mEq/L 07/10/2015 Comp Metabolic Ilw908 CO2 29.0 mEq/L 07/10/2015 Comp Metabolic Twi544 AN ION GAP 12 07/10/2015 Comp Metabolic Iun783 GL UCOSE 105 mg/dL 07/10/2015 Comp Metabolic Vto608 Cr eat 0.9 mg/dL 07/10/2015 Comp Metabolic Npg814 eG FR 85 ml/min/1.73m2 07/09 Comp Metabolic Qrq674 BUN 12 mg/dL 07/10/2015 Comp Metabolic Vis447 B/ C Ratio 13.2 Ratio 07/10/2015 Comp Metabolic Eql834 CA LCIUM 9.1 mg/dL 07/10/2015 Comp Metabolic Brg644 AL K PHOS 43 U/L 07/10/2015 Comp Metabolic Cfr410 T(SGOT) 21 U/L 07/10/2015 Comp Metabolic Pcv257 AL T(SGPT) 21 U/L 07/10/2015 Comp Metabolic Hqm147 BI LI T 0.5 mg/dL 07/10/2015 Comp Metabolic Ddr059 AL BUMIN 4.0 g/dL 07/10/2015 Comp Metabolic Phx808 TP RO 6.4 g/dL 07/10/2015 Comp Metabolic Kpn806 GL OB 2.4 g/dL 07/10/2015 Comp Metabolic Tqw391 A/ G Ratio 1.6 Ratio 07/10/2015 Comp Metabolic Qob062 Os mo 276 mOsmo 07/10/2015 Lipid Ord30 CHOL 121 mg/dL 07/10/2015 Lipid Ord30 HDL 33.0 mg/dl 07/10/2015 Lipid Ord30 TRIG 99 mg/dL 07/10/2015 Lipid Ord30 LDL 68 mg/dL 07/10/2015 Lipid Ord30 C/HDL 3.7 Ratio 07/10/2015 %Hba1C Ljf108 % HbA1c 56099-1 6.0 % 07/10/2015 %Hba1C Tkf697 Gluc Ave 126 mg/dL 07/10/2015 Comp Metabolic Iao117 NA 136 mEq/L 12/04/2014 Comp Metabolic Osi810 K 4.1 mEq/L 12/04/2014 Comp Metabolic Tkl079 CL 103 mEq/L 12/04/2014 Comp Metabolic Kmx593 CO2 28.0 mEq/L 12/04/2014 Comp Metabolic Dly109 AN ION GAP 9 12/04/2014 Comp Metabolic Vvt409 GL UCOSE 118 mg/dL 12/04/2014 Comp Metabolic Ynp160 Cr eat 0.9 mg/dL 12/04/2014 Comp Metabolic Qdr978 eG FR 88 ml/min/1.73m2 12/04 Comp Metabolic Bog467 BUN 10 mg/dL 12/04/2014 Comp Metabolic Tcy074 B/ C Ratio 11.4 Ratio 12/04/2014 Comp Metabolic Pem974 CA LCIUM 9.4 mg/dL 12/04/2014 Comp Metabolic Jha167 AL K PHOS 50 U/L 12/04/2014 Comp Metabolic Nvh015 T(SGOT) 17 U/L 12/04/2014 Comp Metabolic Xgh463 AL T(SGPT) 17 U/L 12/04/2014 Comp Metabolic Mpe493 BI LI T 0.7 mg/dL 12/04/2014 Comp Metabolic Euj474 AL BUMIN 4.1 g/dL 12/04/2014 Comp Metabolic Uwi348 TP RO 6.4 g/dL 12/04/2014 Comp Metabolic Xyr750 GL OB 2.3 g/dL 12/04/2014 Comp Metabolic Sjg405 A/ G Ratio 1.8 Ratio 12/04/2014 Comp Metabolic Gho831 Os mo 272 mOsmo 12/04/2014 Tsh Ord6 hTSH II 4.00 uIU/mL 12/04/2014 %Hba1C Jgm065 % HbA1c 38353-5 6.2 % 12/04/2014 %Hba1C Lmj040 Gluc Ave 131 mg/dL 12/04/2014 Cbc With Differential Ord2 WBC 8.5 K/uL 12/04/2014 Cbc With Differential Ord2 LYM 2.5 K/uL 12/04/2014 Cbc With Differential Ord2 LYM% 29.6 % 12/04/2014 Cbc With Differential Ord2 NEUT/GRAN 5.4 K/uL 12/04/2014 Cbc With Differential Ord2 NEUT/GRAN % 63.9 % 12/04/2014 Cbc With Differential Ord2 MID 0.6 K/uL 12/04/2014 Cbc With Differential Ord2 MID% 6.5 % 12/04/2014 Cbc With Differential Ord2 RBC 4.68 M/uL 12/04/2014 Cbc With Differential Ord2 HGB 14.6 g/dL 12/04/2014 Cbc With Differential Ord2 HCT 44.1 % 12/04/2014 Cbc With Differential Ord2 MCV 94 fL 12/04/2014 Cbc With Differential Ord2 MCH 31 pg 12/04/2014 Cbc With Differential Ord2 MCHC 33 g/dL 12/04/2014 Cbc With Differential Ord2 PLT 208 K/uL 12/04/2014 Cbc With Differential Ord2 RDW 13.7 % 12/04/2014 Lipid Ord30 CHOL 135 mg/dL 12/04/2014 Lipid Ord30 HDL 35.0 mg/dl 12/04/2014 Lipid Ord30 TRIG 116 mg/dL 12/04/2014 Lipid Ord30 LDL 77 mg/dL 12/04/2014 Lipid Ord30 C/HDL 3.9 Ratio 12/04/2014 Review of Systems System Result Effective Dates Constitutional No recent illness 08/29/2018 Constitutional No chills 08/29/2018 Constitutional No diaphoresis 08/29/2018 Constitutional fatigue 0 08/29/2018 Constitutional No fever 08/29/2018 Constitutional No insomnia 08/29/2018 Constitutional No malaise 08/29/2018 Eyes No blindness 2018 Eyes No vision change Ears/Nose/Throat/Neck No dysphagia 08/29/2018 Ears/Nose/Throat/Neck No headache 08/29/2018 Ears/Nose/Throat/Neck No hearing loss 08/29/2018 Ears/Nose/Throat/Neck No nasal allergies 08/29/2018 Ears/Nose/Throat/Neck No sore throat 08/29/2018 Ears/Nose/Throat/Neck No sinus congestion 08/29/2018 Cardiovascular No chest pain/pressure 08/29/2018 Cardiovascular No dyspnea 08/29/2018 Cardiovascular No edema 08/29/2018 Cardiovascular No exercise intolerance 08/29/2018 Cardiovascular fatigue 0 08/29/2018 Cardiovascular No near-syncope/dizziness 08/29/2018 Respiratory No chest tightness 08/29/2018 Respiratory No cigarette smoking 08/29/2018 Respiratory No cough 04/2018 Respiratory No dyspnea 0 08/29/2018 Respiratory No snoring 0 08/29/2018 Respiratory No wheezing 08/29/2018 Gastrointestinal No abdominal pain 08/29/2018 Gastrointestinal No constipation 08/29/2018 Gastrointestinal No diarrhea 08/29/2018 Gastrointestinal No gastroesophageal reflu x 08/29/2018 Genitourinary/Nephrology No dysuria 08/29/2018 Genitourinary/Nephrology No nocturia 08/29/2018 Genitourinary/Nephrology No urinary incontinence 08/29/2018 Musculoskeletal muscle weakness 08/29/2018 Musculoskeletal myalgias 08/29/2018 Dermatologic No rash 04/2018 Dermatologic sores 08/29 Dermatologic skin lesion 08/29/2018 Neurologic No dizziness 08/29/2018 Neurologic dyskinesia or tremor 08/29/2018 Neurologic No headache 0 08/29/2018 Neurologic No neck pain 08/29/2018 Neurologic No syncope Psychiatric No anxiety 0 08/29/2018 Psychiatric No depression 08/29/2018 Constitutional recent illness 06/28/2018 Constitutional No chills 06/28/2018 Constitutional No diaphoresis 06/28/2018 Constitutional No fever 06/28/2018 Eyes No eye erythema 03/2018 Ears/Nose/Throat/Neck nasal allergies 06/28/2018 Ears/Nose/Throat/Neck nasal discharge 06/28/2018 Ears/Nose/Throat/Neck postnasal drip 06/28/2018 Ears/Nose/Throat/Neck sinus congestion 06/28/2018 Ears/Nose/Throat/Neck No sore throat 06/28/2018 Cardiovascular No chest pain/pressure 06/28/2018 Cardiovascular No dyspnea 06/28/2018 Respiratory No chest congestion 06/28/2018 Respiratory cough 2018 Respiratory No dyspnea 0 06/28/2018 Gastrointestinal No abdominal pain 06/28/2018 Gastrointestinal No constipation 06/28/2018 Gastrointestinal No diarrhea 06/28/2018 Gastrointestinal No nausea 06/28/2018 Gastrointestinal No vomiting 06/28/2018 Dermatologic No rash 03/2018 Neurologic No alteration of consciousness 06/28/2018 Neurologic No mental status change 06/28/2018 Constitutional No recent illness 05/30/2018 Constitutional No anorexia 05/30/2018 Constitutional No night sweats 05/30/2018 Constitutional No chills 05/30/2018 Constitutional No diaphoresis 05/30/2018 Constitutional fatigue 0 05/30/2018 Constitutional No fever 05/30/2018 Constitutional No insomnia 05/30/2018 Constitutional No malaise 05/30/2018 Eyes No blindness 2018 Eyes No vision change Ears/Nose/Throat/Neck No dysphagia 05/30/2018 Ears/Nose/Throat/Neck No headache 05/30/2018 Ears/Nose/Throat/Neck No hearing loss 05/30/2018 Ears/Nose/Throat/Neck No nasal allergies 05/30/2018 Ears/Nose/Throat/Neck No sore throat 05/30/2018 Ears/Nose/Throat/Neck No sinus congestion 05/30/2018 Cardiovascular No chest pain/pressure 05/30/2018 Cardiovascular No dyspnea 05/30/2018 Cardiovascular No edema 05/30/2018 Cardiovascular No exercise intolerance 05/30/2018 Cardiovascular fatigue 0 05/30/2018 Cardiovascular No near-syncope/dizziness 05/30/2018 Respiratory No chest tightness 05/30/2018 Respiratory No cigarette smoking 05/30/2018 Respiratory No cough 04/2018 Respiratory No dyspnea 0 05/30/2018 Respiratory No snoring 0 05/30/2018 Respiratory No wheezing 05/30/2018 Gastrointestinal No abdominal pain 05/30/2018 Gastrointestinal No constipation 05/30/2018 Gastrointestinal No diarrhea 05/30/2018 Gastrointestinal No gastroesophageal reflu x 05/30/2018 Genitourinary/Nephrology No dysuria 05/30/2018 Genitourinary/Nephrology No nocturia 05/30/2018 Genitourinary/Nephrology No urinary incontinence 05/30/2018 Musculoskeletal myalgias 05/30/2018 Dermatologic No rash 04/2018 Dermatologic sores 05/30 Dermatologic skin lesion 05/30/2018 Neurologic No dizziness 05/30/2018 Neurologic No headache 0 05/30/2018 Neurologic No neck pain 05/30/2018 Neurologic No syncope Psychiatric No anxiety 0 05/30/2018 Psychiatric No depression 05/30/2018 Neurologic dyskinesia or tremor 05/30/2018 Musculoskeletal muscle weakness 05/30/2018 Constitutional No recent illness 04/18/2018 Constitutional No diaphoresis 04/18/2018 Constitutional fatigue 0 04/18/2018 Constitutional No fever 04/18/2018 Constitutional No insomnia 04/18/2018 Constitutional No malaise 04/18/2018 Ears/Nose/Throat/Neck No dysphagia 04/18/2018 Ears/Nose/Throat/Neck No headache 04/18/2018 Ears/Nose/Throat/Neck No hearing loss 04/18/2018 Ears/Nose/Throat/Neck No nasal allergies 04/18/2018 Ears/Nose/Throat/Neck No sore throat 04/18/2018 Cardiovascular No chest pain/pressure 04/18/2018 Cardiovascular No edema 04/18/2018 Cardiovascular No exercise intolerance 04/18/2018 Cardiovascular fatigue 0 04/18/2018 Cardiovascular No near-syncope/dizziness 04/18/2018 Respiratory No chest tightness 04/18/2018 Respiratory No cigarette smoking 04/18/2018 Respiratory No cough Respiratory No dyspnea 0 04/18/2018 Respiratory No snoring 0 04/18/2018 Respiratory No wheezing 04/18/2018 Gastrointestinal No abdominal pain 04/18/2018 Gastrointestinal No constipation 04/18/2018 Gastrointestinal No diarrhea 04/18/2018 Gastrointestinal No gastroesophageal reflu x 04/18/2018 Musculoskeletal stiffness 04/18/2018 Musculoskeletal No myalgias 04/18/2018 Neurologic No dizziness 04/18/2018 Neurologic dyskinesia or tremor 04/18/2018 Neurologic No headache 0 04/18/2018 Neurologic No neck pain 04/18/2018 Neurologic No syncope Psychiatric No anxiety 0 04/18/2018 Psychiatric No depression 04/18/2018 Constitutional No recent illness 03/13/2018 Constitutional No anorexia 03/13/2018 Constitutional No night sweats 03/13/2018 Constitutional No chills 03/13/2018 Constitutional No diaphoresis 03/13/2018 Constitutional fatigue 0 03/13/2018 Constitutional No fever 03/13/2018 Constitutional No insomnia 03/13/2018 Constitutional No malaise 03/13/2018 Ears/Nose/Throat/Neck No dysphagia 03/13/2018 Ears/Nose/Throat/Neck No headache 03/13/2018 Ears/Nose/Throat/Neck No hearing loss 03/13/2018 Ears/Nose/Throat/Neck No nasal allergies 03/13/2018 Ears/Nose/Throat/Neck No sore throat 03/13/2018 Cardiovascular No chest pain/pressure 03/13/2018 Cardiovascular No edema 03/13/2018 Cardiovascular No exercise intolerance 03/13/2018 Cardiovascular fatigue 0 03/13/2018 Cardiovascular No near-syncope/dizziness 03/13/2018 Respiratory No chest tightness 03/13/2018 Respiratory No cigarette smoking 03/13/2018 Respiratory No cough Respiratory No dyspnea 0 03/13/2018 Respiratory No snoring 0 03/13/2018 Respiratory No wheezing 03/13/2018 Gastrointestinal No abdominal pain 03/13/2018 Gastrointestinal No constipation 03/13/2018 Gastrointestinal No diarrhea 03/13/2018 Gastrointestinal No gastroesophageal reflu x 03/13/2018 Musculoskeletal stiffness 03/13/2018 Musculoskeletal No myalgias 03/13/2018 Neurologic No dizziness 03/13/2018 Neurologic No headache 0 03/13/2018 Neurologic No neck pain 03/13/2018 Neurologic No syncope Psychiatric No anxiety 0 03/13/2018 Psychiatric No depression 03/13/2018 Neurologic dyskinesia or tremor 03/13/2018 Constitutional No recent illness 01/16/2018 Constitutional No anorexia 01/16/2018 Constitutional No night sweats 01/16/2018 Constitutional No chills 01/16/2018 Constitutional No diaphoresis 01/16/2018 Constitutional fatigue 1 03/18/2017 Constitutional No fever 01/16/2018 Constitutional No insomnia 01/16/2018 Constitutional No malaise 01/16/2018 Eyes No blindness 2017 Eyes No vision change Ears/Nose/Throat/Neck No dysphagia 01/16/2018 Ears/Nose/Throat/Neck No headache 01/16/2018 Ears/Nose/Throat/Neck No hearing loss 01/16/2018 Ears/Nose/Throat/Neck No nasal allergies 01/16/2018 Ears/Nose/Throat/Neck No sinus congestion 01/16/2018 Ears/Nose/Throat/Neck No sore throat 01/16/2018 Cardiovascular No chest pain/pressure 01/16/2018 Cardiovascular No dyspnea 01/16/2018 Cardiovascular No edema 01/16/2018 Cardiovascular No exercise intolerance 01/16/2018 Cardiovascular fatigue 1 03/18/2017 Cardiovascular No near-syncope/dizziness 01/16/2018 Respiratory No chest tightness 01/16/2018 Respiratory No cigarette smoking 01/16/2018 Respiratory No cough Respiratory No dyspnea 1 03/18/2017 Respiratory No snoring 1 03/18/2017 Respiratory No wheezing 01/16/2018 Gastrointestinal No abdominal pain 01/16/2018 Gastrointestinal No constipation 01/16/2018 Gastrointestinal No diarrhea 01/16/2018 Gastrointestinal No gastroesophageal reflu x 01/16/2018 Genitourinary/Nephrology No dysuria 01/16/2018 Genitourinary/Nephrology No nocturia 01/16/2018 Genitourinary/Nephrology No urinary incontinence 01/16/2018 Musculoskeletal stiffness 01/16/2018 Musculoskeletal No myalgias 01/16/2018 Musculoskeletal sciatica 01/16/2018 Dermatologic No rash Dermatologic sores 01/16 Dermatologic skin lesion 01/16/2018 Neurologic No dizziness 01/16/2018 Neurologic No headache 1 03/18/2017 Neurologic No neck pain 01/16/2018 Neurologic No syncope Psychiatric No anxiety 1 03/18/2017 Psychiatric No depression 01/16/2018 Constitutional No recent illness 07/18/2017 Constitutional No anorexia 07/18/2017 Constitutional No night sweats 07/18/2017 Constitutional No chills 07/18/2017 Constitutional No diaphoresis 07/18/2017 Constitutional fatigue 0 07/18/2017 Constitutional No fever 07/18/2017 Constitutional No insomnia 07/18/2017 Constitutional No malaise 07/18/2017 Eyes No blindness 2017 Eyes No vision change Ears/Nose/Throat/Neck No dysphagia 07/18/2017 Ears/Nose/Throat/Neck No headache 07/18/2017 Ears/Nose/Throat/Neck No hearing loss 07/18/2017 Ears/Nose/Throat/Neck No nasal allergies 07/18/2017 Ears/Nose/Throat/Neck postnasal drip 07/18/2017 Ears/Nose/Throat/Neck No sinus congestion 07/18/2017 Ears/Nose/Throat/Neck No sore throat 07/18/2017 Cardiovascular No chest pain/pressure 07/18/2017 Cardiovascular No dyspnea 07/18/2017 Cardiovascular No edema 07/18/2017 Cardiovascular No exercise intolerance 07/18/2017 Cardiovascular fatigue 0 07/18/2017 Cardiovascular No near-syncope/dizziness 07/18/2017 Respiratory No chest tightness 07/18/2017 Respiratory No cigarette smoking 07/18/2017 Respiratory No cough Respiratory No dyspnea 0 07/18/2017 Respiratory No snoring 0 07/18/2017 Respiratory No wheezing 07/18/2017 Gastrointestinal No abdominal pain 07/18/2017 Gastrointestinal No constipation 07/18/2017 Gastrointestinal No diarrhea 07/18/2017 Gastrointestinal No gastroesophageal reflu x 07/18/2017 Genitourinary/Nephrology No dysuria 07/18/2017 Genitourinary/Nephrology No nocturia 07/18/2017 Genitourinary/Nephrology No urinary incontinence 07/18/2017 Musculoskeletal stiffness 07/18/2017 Musculoskeletal No myalgias 07/18/2017 Dermatologic No rash Dermatologic No sores Dermatologic No scar Dermatologic skin lesion 07/18/2017 Neurologic No dizziness 07/18/2017 Neurologic No headache 0 07/18/2017 Neurologic No neck pain 07/18/2017 Neurologic No syncope Psychiatric No anxiety 0 07/18/2017 Psychiatric No depression 07/18/2017 Musculoskeletal sciatica 07/18/2017 Constitutional No recent illness 01/17/2017 Constitutional No chills 01/17/2017 Constitutional fatigue 1 03/19/2016 Constitutional No fever 01/17/2017 Constitutional No insomnia 01/17/2017 Constitutional No malaise 01/17/2017 Eyes No blindness 2016 Eyes No vision change Ears/Nose/Throat/Neck No dysphagia 01/17/2017 Ears/Nose/Throat/Neck No headache 01/17/2017 Ears/Nose/Throat/Neck No hearing loss 01/17/2017 Ears/Nose/Throat/Neck No nasal allergies 01/17/2017 Ears/Nose/Throat/Neck No postnasal drip 01/17/2017 Ears/Nose/Throat/Neck No sinus congestion 01/17/2017 Ears/Nose/Throat/Neck No sore throat 01/17/2017 Cardiovascular No chest pain/pressure 01/17/2017 Cardiovascular No dyspnea 01/17/2017 Cardiovascular No edema 01/17/2017 Cardiovascular No exercise intolerance 01/17/2017 Cardiovascular fatigue 1 03/19/2016 Cardiovascular No near-syncope/dizziness 01/17/2017 Respiratory No chest tightness 01/17/2017 Respiratory No cigarette smoking 01/17/2017 Respiratory No cough Respiratory No dyspnea 1 03/19/2016 Respiratory No snoring 1 03/19/2016 Respiratory No wheezing 01/17/2017 Gastrointestinal No abdominal pain 01/17/2017 Gastrointestinal No constipation 01/17/2017 Gastrointestinal No diarrhea 01/17/2017 Gastrointestinal No gastroesophageal reflu x 01/17/2017 Genitourinary/Nephrology No dysuria 01/17/2017 Genitourinary/Nephrology No nocturia 01/17/2017 Genitourinary/Nephrology No urinary incontinence 01/17/2017 Musculoskeletal stiffness 01/17/2017 Musculoskeletal No myalgias 01/17/2017 Dermatologic No rash Dermatologic No sores Dermatologic No scar Neurologic No dizziness 01/17/2017 Neurologic No headache 1 03/19/2016 Neurologic No neck pain 01/17/2017 Neurologic No syncope Psychiatric No anxiety 1 03/19/2016 Psychiatric No depression 01/17/2017 Constitutional No anorexia 01/17/2017 Constitutional No night sweats 01/17/2017 Constitutional No diaphoresis 01/17/2017 Dermatologic skin lesion 01/17/2017 Constitutional No recent illness 07/19/2016 Constitutional No chills 07/19/2016 Constitutional No fatigue 07/19/2016 Constitutional No fever 07/19/2016 Constitutional No insomnia 07/19/2016 Constitutional No malaise 07/19/2016 Eyes No blindness 2016 Eyes No vision change Ears/Nose/Throat/Neck dizziness 07/19/2016 Ears/Nose/Throat/Neck No dysphagia 07/19/2016 Ears/Nose/Throat/Neck No headache 07/19/2016 Ears/Nose/Throat/Neck No hearing loss 07/19/2016 Ears/Nose/Throat/Neck No nasal allergies 07/19/2016 Ears/Nose/Throat/Neck No sore throat 07/19/2016 Ears/Nose/Throat/Neck No postnasal drip 07/19/2016 Ears/Nose/Throat/Neck No sinus congestion 07/19/2016 Cardiovascular No chest pain/pressure 07/19/2016 Cardiovascular No dyspnea 07/19/2016 Cardiovascular No edema 07/19/2016 Cardiovascular No exercise intolerance 07/19/2016 Cardiovascular fatigue 0 07/19/2016 Cardiovascular No near-syncope/dizziness 07/19/2016 Respiratory No chest tightness 07/19/2016 Respiratory No cigarette smoking 07/19/2016 Respiratory No cough Respiratory No dyspnea 0 07/19/2016 Respiratory No snoring 0 07/19/2016 Respiratory No wheezing 07/19/2016 Gastrointestinal No abdominal pain 07/19/2016 Gastrointestinal No constipation 07/19/2016 Gastrointestinal No diarrhea 07/19/2016 Gastrointestinal No gastroesophageal reflu x 07/19/2016 Genitourinary/Nephrology No dysuria 07/19/2016 Genitourinary/Nephrology No nocturia 07/19/2016 Genitourinary/Nephrology No urinary incontinence 07/19/2016 Musculoskeletal stiffness 07/19/2016 Musculoskeletal No myalgias 07/19/2016 Dermatologic No rash Dermatologic No sores Dermatologic No scar Neurologic No dizziness 07/19/2016 Neurologic No headache 0 07/19/2016 Neurologic No neck pain 07/19/2016 Neurologic No syncope Psychiatric No anxiety 0 07/19/2016 Psychiatric No depression 07/19/2016 Constitutional No recent illness 01/19/2016 Constitutional No chills 01/19/2016 Constitutional No fatigue 01/19/2016 Constitutional No fever 01/19/2016 Constitutional No insomnia 01/19/2016 Constitutional No malaise 01/19/2016 Eyes No blindness 2015 Eyes No vision change Ears/Nose/Throat/Neck dizziness 01/19/2016 Ears/Nose/Throat/Neck No dysphagia 01/19/2016 Ears/Nose/Throat/Neck No headache 01/19/2016 Ears/Nose/Throat/Neck No hearing loss 01/19/2016 Ears/Nose/Throat/Neck No nasal allergies 01/19/2016 Ears/Nose/Throat/Neck No sore throat 01/19/2016 Ears/Nose/Throat/Neck No postnasal drip 01/19/2016 Ears/Nose/Throat/Neck No sinus congestion 01/19/2016 Cardiovascular No chest pain/pressure 01/19/2016 Cardiovascular No dyspnea 01/19/2016 Cardiovascular No edema 01/19/2016 Cardiovascular No exercise intolerance 01/19/2016 Cardiovascular fatigue 1 03/20/2015 Cardiovascular No near-syncope/dizziness 01/19/2016 Respiratory No chest tightness 01/19/2016 Respiratory No cigarette smoking 01/19/2016 Respiratory No cough Respiratory No dyspnea 1 03/20/2015 Respiratory No snoring 1 03/20/2015 Respiratory No wheezing 01/19/2016 Gastrointestinal No abdominal pain 01/19/2016 Gastrointestinal No constipation 01/19/2016 Gastrointestinal No diarrhea 01/19/2016 Gastrointestinal No gastroesophageal reflu x 01/19/2016 Genitourinary/Nephrology No dysuria 01/19/2016 Genitourinary/Nephrology No nocturia 01/19/2016 Genitourinary/Nephrology No urinary incontinence 01/19/2016 Musculoskeletal stiffness 01/19/2016 Musculoskeletal swelling 01/19/2016 Musculoskeletal muscle weakness 01/19/2016 Musculoskeletal No myalgias 01/19/2016 Dermatologic No rash Dermatologic No sores Dermatologic No scar Neurologic No dizziness 01/19/2016 Neurologic No headache 1 03/20/2015 Neurologic pain, limb Neurologic No neck pain 01/19/2016 Neurologic No syncope Psychiatric No anxiety 1 03/20/2015 Psychiatric No depression 01/19/2016 Constitutional No recent illness 07/22/2015 Constitutional No fatigue 07/22/2015 Constitutional No fever 07/22/2015 Constitutional No insomnia 07/22/2015 Constitutional No malaise 07/22/2015 Eyes No eye erythema Eyes No vision change Ears/Nose/Throat/Neck No nasal allergies 07/22/2015 Ears/Nose/Throat/Neck No sore throat 07/22/2015 Ears/Nose/Throat/Neck No postnasal drip 07/22/2015 Ears/Nose/Throat/Neck No sinus congestion 07/22/2015 Cardiovascular No chest pain/pressure 07/22/2015 Cardiovascular No dyspnea 07/22/2015 Cardiovascular No edema 07/22/2015 Respiratory No cough Respiratory No dyspnea 0 07/22/2015 Gastrointestinal No abdominal pain 07/22/2015 Gastrointestinal No constipation 07/22/2015 Gastrointestinal No diarrhea 07/22/2015 Musculoskeletal stiffness 07/22/2015 Musculoskeletal muscle weakness 07/22/2015 Dermatologic No rash Dermatologic No sores Dermatologic No scar Psychiatric No anxiety 0 07/22/2015 Psychiatric No depression 07/22/2015 Ears/Nose/Throat/Neck No nasal discharge 07/22/2015 Respiratory No chest congestion 07/22/2015 Gastrointestinal No vomiting 07/22/2015 Gastrointestinal No nausea 07/22/2015 Neurologic No alteration of consciousness 07/22/2015 Neurologic No mental status change 07/22/2015 Constitutional No recent illness 01/13/2015 Constitutional No chills 01/13/2015 Constitutional No fatigue 01/13/2015 Constitutional No fever 01/13/2015 Constitutional No insomnia 01/13/2015 Constitutional No malaise 01/13/2015 Eyes No blindness 2014 Eyes No vision change Ears/Nose/Throat/Neck dizziness 01/13/2015 Ears/Nose/Throat/Neck No dysphagia 01/13/2015 Ears/Nose/Throat/Neck No headache 01/13/2015 Ears/Nose/Throat/Neck No hearing loss 01/13/2015 Ears/Nose/Throat/Neck No nasal allergies 01/13/2015 Ears/Nose/Throat/Neck No sore throat 01/13/2015 Ears/Nose/Throat/Neck No postnasal drip 01/13/2015 Ears/Nose/Throat/Neck No sinus congestion 01/13/2015 Cardiovascular No chest pain/pressure 01/13/2015 Cardiovascular No dyspnea 01/13/2015 Cardiovascular No edema 01/13/2015 Cardiovascular No exercise intolerance 01/13/2015 Cardiovascular fatigue 1 03/15/2014 Cardiovascular No near-syncope/dizziness 01/13/2015 Respiratory No chest tightness 01/13/2015 Respiratory No cigarette smoking 01/13/2015 Respiratory No cough Respiratory No dyspnea 1 03/15/2014 Respiratory No snoring 1 03/15/2014 Respiratory No wheezing 01/13/2015 Gastrointestinal No abdominal pain 01/13/2015 Gastrointestinal No constipation 01/13/2015 Gastrointestinal No diarrhea 01/13/2015 Gastrointestinal No gastroesophageal reflu x 01/13/2015 Genitourinary/Nephrology No dysuria 01/13/2015 Genitourinary/Nephrology No nocturia 01/13/2015 Genitourinary/Nephrology No urinary incontinence 01/13/2015 Musculoskeletal stiffness 01/13/2015 Musculoskeletal swelling 01/13/2015 Musculoskeletal muscle weakness 01/13/2015 Musculoskeletal No myalgias 01/13/2015 Dermatologic No rash Dermatologic No sores Dermatologic No scar Neurologic No dizziness 01/13/2015 Neurologic No headache 1 03/15/2014 Neurologic No neck pain 01/13/2015 Neurologic No syncope Psychiatric No anxiety 1 03/15/2014 Psychiatric No depression 01/13/2015 Constitutional No recent illness 12/03/2014 Constitutional No chills 12/03/2014 Constitutional No fatigue 12/03/2014 Constitutional No fever 12/03/2014 Constitutional No insomnia 12/03/2014 Constitutional No malaise 12/03/2014 Eyes No blindness 2014 Eyes No vision change Ears/Nose/Throat/Neck dizziness 12/03/2014 Ears/Nose/Throat/Neck No dysphagia 12/03/2014 Ears/Nose/Throat/Neck No headache 12/03/2014 Ears/Nose/Throat/Neck No hearing loss 12/03/2014 Ears/Nose/Throat/Neck No nasal allergies 12/03/2014 Ears/Nose/Throat/Neck No sore throat 12/03/2014 Ears/Nose/Throat/Neck No postnasal drip 12/03/2014 Ears/Nose/Throat/Neck No sinus congestion 12/03/2014 Cardiovascular No chest pain/pressure 12/03/2014 Cardiovascular No dyspnea 12/03/2014 Cardiovascular No edema 12/03/2014 Cardiovascular No exercise intolerance 12/03/2014 Cardiovascular fatigue 1 Cardiovascular No near-syncope/dizziness 12/03/2014 Respiratory No chest tightness 12/03/2014 Respiratory No cigarette smoking 12/03/2014 Respiratory No cough 08/2014 Respiratory No dyspnea 1 Respiratory No snoring 1 Respiratory No wheezing 12/03/2014 Gastrointestinal No abdominal pain 12/03/2014 Gastrointestinal No constipation 12/03/2014 Gastrointestinal No diarrhea 12/03/2014 Gastrointestinal No gastroesophageal reflu x 12/03/2014 Genitourinary/Nephrology No dysuria 12/03/2014 Genitourinary/Nephrology No nocturia 12/03/2014 Genitourinary/Nephrology No urinary incontinence 12/03/2014 Musculoskeletal stiffness 12/03/2014 Musculoskeletal swelling 12/03/2014 Musculoskeletal muscle weakness 12/03/2014 Musculoskeletal No myalgias 12/03/2014 Dermatologic No rash 08/2014 Dermatologic No sores Dermatologic No scar 08/2014 Neurologic No dizziness 12/03/2014 Neurologic No headache 1 Neurologic pain, limb Neurologic No neck pain 12/03/2014 Neurologic No syncope Psychiatric No anxiety 1 Psychiatric No depression 12/03/2014 Constitutional No recent illness 06/04/2014 Constitutional No chills 06/04/2014 Constitutional No fatigue 06/04/2014 Constitutional No fever 06/04/2014 Constitutional No insomnia 06/04/2014 Constitutional No malaise 06/04/2014 Eyes No blindness 2014 Eyes No vision change Ears/Nose/Throat/Neck dizziness 06/04/2014 Ears/Nose/Throat/Neck No dysphagia 06/04/2014 Ears/Nose/Throat/Neck No headache 06/04/2014 Ears/Nose/Throat/Neck No hearing loss 06/04/2014 Ears/Nose/Throat/Neck No nasal allergies 06/04/2014 Ears/Nose/Throat/Neck No sore throat 06/04/2014 Ears/Nose/Throat/Neck No postnasal drip 06/04/2014 Ears/Nose/Throat/Neck No sinus congestion 06/04/2014 Cardiovascular No chest pain/pressure 06/04/2014 Cardiovascular No dyspnea 06/04/2014 Cardiovascular No edema 06/04/2014 Cardiovascular No exercise intolerance 06/04/2014 Cardiovascular fatigue 0 06/04/2014 Cardiovascular No near-syncope/dizziness 06/04/2014 Respiratory No chest tightness 06/04/2014 Respiratory No cigarette smoking 06/04/2014 Respiratory No cough 09/2014 Respiratory No dyspnea 0 06/04/2014 Respiratory No snoring 0 06/04/2014 Respiratory No wheezing 06/04/2014 Gastrointestinal No abdominal pain 06/04/2014 Gastrointestinal No constipation 06/04/2014 Gastrointestinal No diarrhea 06/04/2014 Gastrointestinal No gastroesophageal reflu x 06/04/2014 Genitourinary/Nephrology No dysuria 06/04/2014 Genitourinary/Nephrology No nocturia 06/04/2014 Genitourinary/Nephrology No urinary incontinence 06/04/2014 Musculoskeletal stiffness 06/04/2014 Musculoskeletal swelling 06/04/2014 Musculoskeletal muscle weakness 06/04/2014 Musculoskeletal No myalgias 06/04/2014 Dermatologic No rash 09/2014 Dermatologic No sores Dermatologic No scar 09/2014 Neurologic No dizziness 06/04/2014 Neurologic No headache 0 06/04/2014 Neurologic pain, limb Neurologic No neck pain 06/04/2014 Neurologic No syncope Psychiatric No anxiety 0 06/04/2014 Psychiatric No depression 06/04/2014 Constitutional No recent illness 12/10/2013 Constitutional No chills 12/10/2013 Constitutional No fatigue 12/10/2013 Constitutional No fever 12/10/2013 Constitutional No insomnia 12/10/2013 Constitutional No malaise 12/10/2013 Eyes No blindness 2013 Eyes No vision change Ears/Nose/Throat/Neck No dysphagia 12/10/2013 Ears/Nose/Throat/Neck No headache 12/10/2013 Ears/Nose/Throat/Neck No hearing loss 12/10/2013 Ears/Nose/Throat/Neck No nasal allergies 12/10/2013 Ears/Nose/Throat/Neck No sore throat 12/10/2013 Ears/Nose/Throat/Neck No postnasal drip 12/10/2013 Ears/Nose/Throat/Neck No sinus congestion 12/10/2013 Cardiovascular No chest pain/pressure 12/10/2013 Cardiovascular No dyspnea 12/10/2013 Cardiovascular No edema 12/10/2013 Cardiovascular No exercise intolerance 12/10/2013 Cardiovascular fatigue 1 Cardiovascular No near-syncope/dizziness 12/10/2013 Respiratory No chest tightness 12/10/2013 Respiratory No cigarette smoking 12/10/2013 Respiratory No cough Respiratory No dyspnea 1 Respiratory No snoring 1 Respiratory No wheezing 12/10/2013 Gastrointestinal No abdominal pain 12/10/2013 Gastrointestinal No constipation 12/10/2013 Gastrointestinal No diarrhea 12/10/2013 Gastrointestinal No gastroesophageal reflu x 12/10/2013 Genitourinary/Nephrology No dysuria 12/10/2013 Genitourinary/Nephrology No nocturia 12/10/2013 Genitourinary/Nephrology No urinary incontinence 12/10/2013 Musculoskeletal stiffness 12/10/2013 Musculoskeletal swelling 12/10/2013 Musculoskeletal muscle weakness 12/10/2013 Musculoskeletal No myalgias 12/10/2013 Neurologic No dizziness 12/10/2013 Neurologic No headache 1 Neurologic No neck pain 12/10/2013 Neurologic No syncope Psychiatric No anxiety 1 Psychiatric No depression 12/10/2013 Neurologic pain, limb Dermatologic No rash Dermatologic No scar Dermatologic No sores Ears/Nose/Throat/Neck dizziness 12/10/2013 Physical Exam Exam Name System Name It em Name Status Result Effective Dates Notes Full Exam - General 1994 Constitutional general appearance Development: well developed 08/29/2018 None Full Exam - General 1994 Constitutional general appearance Development: appears stated age 0708/29/2018 None Full Exam - General 1994 Constitutional general appearance Hygiene/Attention to Grooming: good hygiene 08/29/2018 None Full Exam - General 1994 Eyes conjunctiva/eyelids Overall: conjunctiva clear 08/29/2018 None Full Exam - General 1994 Eyes conjunctiva/eyelids Overall: cornea clear 08/29/2018 None Full Exam - General 1994 Eyes conjunctiva/eyelids Overall: eyelids normal 08/29/2018 None Full Exam - General 1994 Eyes pupils and irises Overall: pupils equal, round, reactive to light and accomodation 08/29/2018 None Full Exam - General 1994 Ears/Nose/Throat otoscopic exam Overall: external auditory canals clear 08/29/2018 None Full Exam - General 1994 Ears/Nose/Throat otoscopic exam Overall: tympanic membranes clear 08/29/2018 None Full Exam - General 1994 Ears/Nose/Throat lips/teeth/gingiva Overall: benign lips 08/29/2018 None Full Exam - General 1994 Ears/Nose/Throat lips/teeth/gingiva Overall: normal dentition 08/29/2018 None Full Exam - General 1994 Ears/Nose/Throat oral cavity/pharynx/larynx Overall: oral mucosa clear 08/29/2018 None Full Exam - General 1995 Ears/Nose/Throat oral cavity/pharynx/larynx Overall: oropharyngeal mucosa clear 08/29/2018 None Full Exam - General 1994 Ears/Nose/Throat oral cavity/pharynx/larynx Overall: hypopharynx benign 08/29/2018 None Full Exam - General 1994 Ears/Nose/Throat oral cavity/pharynx/larynx Overall: no masses 08/29/2018 None Full Exam - General 1994 Respiratory auscultation Overall: breath sounds clear bilaterally 08/29/2018 None Full Exam - General 1994 Respiratory respiratory effort/rhythm Overall: no retractions 08/29/2018 None Full Exam - General 1994 Respiratory respiratory effort/rhythm Overall: normal rate 08/29/2018 None Full Exam - General 1994 Cardiovascular extremities Overall: no clubbing 08/29/2018 None Full Exam - General 1994 Cardiovascular auscultation of heart Overall: regular rate 08/29/2018 None Full Exam - General 1994 Cardiovascular auscultation of heart Overall: normal heart sounds 08/29/2018 None Full Exam - General 1994 Abdomen abdominal exam Overall: no tenderness 08/29/2018 None Full Exam - General 1994 Abdomen abdominal exam Overall: normal bowel sounds 08/29/2018 None Full Exam - General 1994 Musculoskeletal upper extremity Palpation - wrist: joint swelling 08/29/2018 None Full Exam - General 1994 Musculoskeletal spine, ribs and pelvis Overall: spine benign 08/29/2018 None Full Exam - General 1994 Musculoskeletal spine, ribs and pelvis Overall: good posture 08/29/2018 None Full Exam - General 1994 Neurologic cranial nerves Overall: crainial nerves 2 - 12 grossly intact 08/29/2018 None Full Exam - General 1994 Psychiatric orientation/consciousness Overall: oriented to person, place and time 08/29/2018 None Full Exam - General 1994 Psychiatric mood and affect Overall: normal mood and affect 08/29/2018 None Full Exam - General 1994 Neurologic coordination Tremors: resting 08/29/2018 None Full Exam - General 1994 Neurologic coordination Tremors: intention 08/29/2018 None Full Exam - General 1994 Integument inspection of skin Location: face 08/29/2018 keratotic lesion on face at scientology and cheek treated with cryotherapy today Full Exam - ENT Constitutional general appearance Overall: well nourished 06/28/2018 None Full Exam - ENT Constitutional general appearance Overall: well developed 06/28/2018 None Full Exam - ENT Constitutional general appearance Overall: in no acute distress 06/28/2018 None Full Exam - ENT Ears/Nose/Throat otoscopic exam Overall: external auditory canals normal 06/28/2018 None Full Exam - ENT Ears/Nose/Throat otoscopic exam Left tympanic membrane: air-fluid [place] 06/28/2018 None Full Exam - ENT Ears/Nose/Throat otoscopic exam Right tympanic membrane: air-fluid level 06/28/2018 None Full Exam - ENT Ears/Nose/Throat nasal mucosa, septum, turbinates Drainage: clear 06/28/2018 None Full Exam - ENT Ears/Nose/Throat nasal mucosa, septum, turbinates Drainage: yellow 06/28/2018 None Full Exam - ENT Ears/Nose/Throat lips/teeth/gingiva Overall: benign lips 06/28/2018 None Full Exam - ENT Ears/Nose/Throat oropharynx Posterior Pharynx: clear post nasal drainage 06/28/2018 None Full Exam - ENT Face and Head palpation Left maxillary sinus: tender 06/28/2018 None Full Exam - ENT Face and Head palpation Right maxillary sinus: tender 06/28/2018 None Full Exam - ENT Respiratory inspection Overall: no retractions 06/28/2018 None Full Exam - ENT Respiratory inspection Overall: normal rate 03/2018 None Full Exam - ENT Respiratory auscultation Overall: breath sounds clear bilater ally 06/28/2018 None Full Exam - ENT Cardiovascular auscultation of heart Overall: regular rate 06/28/2018 None Full Exam - ENT Cardiovascular auscultation of heart Overall: normal heart sounds 06/28/2018 None Full Exam - ENT Lymphatic palpation of lymph nodes Overall: anterior cervical chain benign 06/28/2018 None Full Exam - ENT Lymphatic palpation of lymph nodes Overall: posterior cervical chain benign 06/28/2018 None Full Exam - ENT Neurologic mood and affect Overall: normal mood 06/28/2018 None Full Exam - ENT Neurologic mood and affect Overall: normal affect 06/28/2018 None Full Exam - ENT Neurologic orientation Overall: oriented to person, place a nd time 06/28/2018 None Full Exam - General 1994 Constitutional general appearance Development: well developed 05/30/2018 None Full Exam - General 1994 Constitutional general appearance Development: appears stated age 0405/30/2018 None Full Exam - General 1994 Constitutional general appearance Hygiene/Attention to Grooming: good hygiene 05/30/2018 None Full Exam - General 1994 Eyes conjunctiva/eyelids Overall: conjunctiva clear 05/30/2018 None Full Exam - General 1994 Eyes conjunctiva/eyelids Overall: cornea clear 05/30/2018 None Full Exam - General 1994 Eyes conjunctiva/eyelids Overall: eyelids normal 05/30/2018 None Full Exam - General 1994 Eyes pupils and irises Overall: pupils equal, round, reactive to light and accomodation 05/30/2018 None Full Exam - General 1994 Ears/Nose/Throat otoscopic exam Overall: external auditory canals clear 05/30/2018 None Full Exam - General 1994 Ears/Nose/Throat otoscopic exam Overall: tympanic membranes clear 05/30/2018 None Full Exam - General 1994 Ears/Nose/Throat lips/teeth/gingiva Overall: benign lips 05/30/2018 None Full Exam - General 1994 Ears/Nose/Throat lips/teeth/gingiva Overall: normal dentition 05/30/2018 None Full Exam - General 1994 Ears/Nose/Throat oral cavity/pharynx/larynx Overall: oral mucosa clear 05/30/2018 None Full Exam - General 1994 Ears/Nose/Throat oral cavity/pharynx/larynx Overall: oropharyngeal mucosa clear 05/30/2018 None Full Exam - General 1994 Ears/Nose/Throat oral cavity/pharynx/larynx Overall: hypopharynx benign 05/30/2018 None Full Exam - General 1994 Ears/Nose/Throat oral cavity/pharynx/larynx Overall: no masses 05/30/2018 None Full Exam - General 1994 Respiratory auscultation Overall: breath sounds clear bilaterally 05/30/2018 None Full Exam - General 1994 Respiratory respiratory effort/rhythm Overall: no retractions 05/30/2018 None Full Exam - General 1994 Respiratory respiratory effort/rhythm Overall: normal rate 05/30/2018 None Full Exam - General 1994 Cardiovascular extremities Overall: no clubbing 05/30/2018 None Full Exam - General 1994 Cardiovascular auscultation of heart Overall: regular rate 05/30/2018 None Full Exam - General 1994 Cardiovascular auscultation of heart Overall: normal heart sounds 05/30/2018 None Full Exam - General 1994 Abdomen abdominal exam Overall: no tenderness 05/30/2018 None Full Exam - General 1994 Abdomen abdominal exam Overall: normal bowel sounds 05/30/2018 None Full Exam - General 1994 Musculoskeletal upper extremity Palpation - wrist: joint swelling 05/30/2018 None Full Exam - General 1994 Musculoskeletal spine, ribs and pelvis Overall: spine benign 05/30/2018 None Full Exam - General 1994 Musculoskeletal spine, ribs and pelvis Overall: good posture 05/30/2018 None Full Exam - General 1994 Integument inspection of skin Location: face 05/30/2018 right cheek AK and bilate ral nares - treated with cryotherapy Full Exam - General 1994 Integument inspection of skin Location: left hand 05/30/2018 actinic keratosis treated with cryotherapy - 3 sites Full Exam - General 1994 Integument inspection of skin Location: right hand 05/30/2018 actinic keratosis treated with cryotherapy - 3 sites Full Exam - General 1994 Neurologic deep tendon reflexes Overall: deep tendon reflexes intact 05/30/2018 None Full Exam - General 1994 Neurologic cranial nerves Overall: crainial nerves 2 - 12 grossly intact 05/30/2018 None Full Exam - General 1994 Psychiatric orientation/consciousness Overall: oriented to person, place and time 05/30/2018 None Full Exam - General 1994 Psychiatric mood and affect Overall: normal mood and affect 05/30/2018 None Full Exam - General 1994 Constitutional general appearance Development: well developed 04/18/2018 None Full Exam - General 1994 Constitutional general appearance Development: appears stated age 0204/18/2018 None Full Exam - General 1994 Constitutional general appearance Hygiene/Attention to Grooming: good hygiene 04/18/2018 None Full Exam - General 1994 Eyes conjunctiva/eyelids Overall: conjunctiva clear 04/18/2018 None Full Exam - General 1994 Eyes conjunctiva/eyelids Overall: cornea clear 04/18/2018 None Full Exam - General 1994 Eyes conjunctiva/eyelids Overall: eyelids normal 04/18/2018 None Full Exam - General 1994 Eyes pupils and irises Overall: pupils equal, round, reactive to light and accomodation 04/18/2018 None Full Exam - General 1994 Ears/Nose/Throat lips/teeth/gingiva Overall: benign lips 04/18/2018 None Full Exam - General 1994 Ears/Nose/Throat lips/teeth/gingiva Overall: normal dentition 04/18/2018 None Full Exam - General 1995 Ears/Nose/Throat oral cavity/pharynx/larynx Overall: oral mucosa clear 04/18/2018 None Full Exam - General 1995 Ears/Nose/Throat oral cavity/pharynx/larynx Overall: oropharyngeal mucosa clear 04/18/2018 None Full Exam - General 1994 Ears/Nose/Throat oral cavity/pharynx/larynx Overall: hypopharynx benign 04/18/2018 None Full Exam - General 1994 Ears/Nose/Throat oral cavity/pharynx/larynx Overall: no masses 04/18/2018 None Full Exam - General 1994 Respiratory auscultation Overall: breath sounds clear bilaterally 04/18/2018 None Full Exam - General 1994 Respiratory respiratory effort/rhythm Overall: no retractions 04/18/2018 None Full Exam - General 1994 Respiratory respiratory effort/rhythm Overall: normal rate 04/18/2018 None Full Exam - General 1994 Cardiovascular extremities Overall: no clubbing 04/18/2018 None Full Exam - General 1994 Cardiovascular auscultation of heart Overall: regular rate 04/18/2018 None Full Exam - General 1994 Cardiovascular auscultation of heart Overall: normal heart sounds 04/18/2018 None Full Exam - General 1994 Musculoskeletal upper extremity Palpation - wrist: joint swelling 04/18/2018 None Full Exam - General 1994 Musculoskeletal upper extremity Palpation - wrist: tender 04/18/2018 over thenar eminence Full Exam - General 1994 Musculoskeletal spine, ribs and pelvis Overall: spine benign 04/18/2018 None Full Exam - General 1994 Musculoskeletal spine, ribs and pelvis Overall: good posture 04/18/2018 None Full Exam - General 1994 Neurologic coordination Tremors: intention 04/18/2018 None Full Exam - General 1994 Neurologic cranial nerves Overall: crainial nerves 2 - 12 grossly intact 04/18/2018 None Full Exam - General 1994 Psychiatric orientation/consciousness Overall: oriented to person, place and time 04/18/2018 None Full Exam - General 1994 Psychiatric mood and affect Overall: normal mood and affect 04/18/2018 None Full Exam - General 1994 Constitutional general appearance Development: well developed 03/13/2018 None Full Exam - General 1994 Constitutional general appearance Development: appears stated age 0103/13/2018 None Full Exam - General 1994 Constitutional general appearance Hygiene/Attention to Grooming: good hygiene 03/13/2018 None Full Exam - General 1994 Eyes conjunctiva/eyelids Overall: conjunctiva clear 03/13/2018 None Full Exam - General 1994 Eyes conjunctiva/eyelids Overall: cornea clear 03/13/2018 None Full Exam - General 1994 Eyes conjunctiva/eyelids Overall: eyelids normal 03/13/2018 None Full Exam - General 1994 Eyes pupils and irises Overall: pupils equal, round, reactive to light and accomodation 03/13/2018 None Full Exam - General 1994 Ears/Nose/Throat lips/teeth/gingiva Overall: benign lips 03/13/2018 None Full Exam - General 1994 Ears/Nose/Throat lips/teeth/gingiva Overall: normal dentition 03/13/2018 None Full Exam - General 1994 Ears/Nose/Throat oral cavity/pharynx/larynx Overall: oral mucosa clear 03/13/2018 None Full Exam - General 1994 Ears/Nose/Throat oral cavity/pharynx/larynx Overall: oropharyngeal mucosa clear 03/13/2018 None Full Exam - General 1994 Ears/Nose/Throat oral cavity/pharynx/larynx Overall: hypopharynx benign 03/13/2018 None Full Exam - General 1994 Ears/Nose/Throat oral cavity/pharynx/larynx Overall: no masses 03/13/2018 None Full Exam - General 1994 Respiratory auscultation Overall: breath sounds clear bilaterally 03/13/2018 None Full Exam - General 1994 Respiratory respiratory effort/rhythm Overall: no retractions 03/13/2018 None Full Exam - General 1994 Respiratory respiratory effort/rhythm Overall: normal rate 03/13/2018 None Full Exam - General 1994 Cardiovascular extremities Overall: no clubbing 03/13/2018 None Full Exam - General 1994 Cardiovascular auscultation of heart Overall: regular rate 03/13/2018 None Full Exam - General 1994 Cardiovascular auscultation of heart Overall: normal heart sounds 03/13/2018 None Full Exam - General 1994 Abdomen abdominal exam Overall: no tenderness 03/13/2018 None Full Exam - General 1994 Abdomen abdominal exam Overall: normal bowel sounds 03/13/2018 None Full Exam - General 1994 Musculoskeletal digits and nails Deformities/Nodules: dupuytren's contracture 03/13/2018 bilaterally palmar surface - digits 3/4 - scar on palmar surface of the left hand carpal tunnel - Full Exam - General 1994 Musculoskeletal upper extremity Palpation - wrist: joint swelling 03/13/2018 None Full Exam - General 1994 Musculoskeletal upper extremity Palpation - wrist: tender 03/13/2018 over thenar eminence Full Exam - General 1995 Musculoskeletal spine, ribs and pelvis Overall: spine benign 03/13/2018 None Full Exam - General 1994 Musculoskeletal spine, ribs and pelvis Overall: good posture 03/13/2018 None Full Exam - General 1994 Neurologic cranial nerves Overall: crainial nerves 2 - 12 grossly intact 03/13/2018 None Full Exam - General 1994 Psychiatric orientation/consciousness Overall: oriented to person, place and time 03/13/2018 None Full Exam - General 1994 Psychiatric mood and affect Overall: normal mood and affect 03/13/2018 None Full Exam - General 1994 Neurologic coordination Tremors: intention 03/13/2018 None Full Exam - General 1994 Constitutional general appearance Development: well developed 01/16/2018 None Full Exam - General 1994 Constitutional general appearance Development: appears stated age 1101/16/2018 None Full Exam - General 1994 Constitutional general appearance Hygiene/Attention to Grooming: good hygiene 01/16/2018 None Full Exam - General 1994 Eyes conjunctiva/eyelids Overall: conjunctiva clear 01/16/2018 None Full Exam - General 1994 Eyes conjunctiva/eyelids Overall: cornea clear 01/16/2018 None Full Exam - General 1994 Eyes conjunctiva/eyelids Overall: eyelids normal 01/16/2018 None Full Exam - General 1994 Eyes pupils and irises Overall: pupils equal, round, reactive to light and accomodation 01/16/2018 None Full Exam - General 1994 Ears/Nose/Throat otoscopic exam Overall: external auditory canals clear 01/16/2018 None Full Exam - General 1994 Ears/Nose/Throat otoscopic exam Overall: tympanic membranes clear 01/16/2018 None Full Exam - General 1994 Ears/Nose/Throat lips/teeth/gingiva Overall: benign lips 01/16/2018 None Full Exam - General 1994 Ears/Nose/Throat lips/teeth/gingiva Overall: normal dentition 01/16/2018 None Full Exam - General 1994 Ears/Nose/Throat oral cavity/pharynx/larynx Overall: oral mucosa clear 01/16/2018 None Full Exam - General 1994 Ears/Nose/Throat oral cavity/pharynx/larynx Overall: oropharyngeal mucosa clear 01/16/2018 None Full Exam - General 1994 Ears/Nose/Throat oral cavity/pharynx/larynx Overall: hypopharynx benign 01/16/2018 None Full Exam - General 1994 Ears/Nose/Throat oral cavity/pharynx/larynx Overall: no masses 01/16/2018 None Full Exam - General 1994 Respiratory auscultation Overall: breath sounds clear bilaterally 01/16/2018 None Full Exam - General 1994 Respiratory respiratory effort/rhythm Overall: no retractions 01/16/2018 None Full Exam - General 1994 Respiratory respiratory effort/rhythm Overall: normal rate 01/16/2018 None Full Exam - General 1994 Cardiovascular extremities Overall: no clubbing 01/16/2018 None Full Exam - General 1994 Cardiovascular auscultation of heart Overall: regular rate 01/16/2018 None Full Exam - General 1994 Cardiovascular auscultation of heart Overall: normal heart sounds 01/16/2018 None Full Exam - General 1994 Abdomen abdominal exam Overall: no tenderness 01/16/2018 None Full Exam - General 1994 Abdomen abdominal exam Overall: normal bowel sounds 01/16/2018 None Full Exam - General 1994 Musculoskeletal upper extremity Palpation - wrist: joint swelling 01/16/2018 None Full Exam - General 1994 Musculoskeletal spine, ribs and pelvis Overall: spine benign 01/16/2018 None Full Exam - General 1994 Musculoskeletal spine, ribs and pelvis Overall: good posture 01/16/2018 None Full Exam - General 1994 Integument inspection of skin Location: face 01/16/2018 right cheek AK and bilate ral nares - treated with cryotherapy Full Exam - General 1994 Neurologic deep tendon reflexes Overall: deep tendon reflexes intact 01/16/2018 None Full Exam - General 1994 Neurologic cranial nerves Overall: crainial nerves 2 - 12 grossly intact 01/16/2018 None Full Exam - General 1994 Psychiatric orientation/consciousness Overall: oriented to person, place and time 01/16/2018 None Full Exam - General 1994 Psychiatric mood and affect Overall: normal mood and affect 01/16/2018 None Full Exam - General 1994 Integument inspection of skin Location: left hand 01/16/2018 actinic keratosis treated with cryotherapy - 3 sites Full Exam - General 1994 Integument inspection of skin Location: right hand 01/16/2018 actinic keratosis treated with cryotherapy - 3 sites Full Exam - General 1994 Constitutional general appearance Development: well developed 07/18/2017 None Full Exam - General 1994 Constitutional general appearance Development: appears stated age 0507/18/2017 None Full Exam - General 1994 Constitutional general appearance Hygiene/Attention to Grooming: good hygiene 07/18/2017 None Full Exam - General 1994 Eyes conjunctiva/eyelids Overall: conjunctiva clear 07/18/2017 None Full Exam - General 1994 Eyes conjunctiva/eyelids Overall: cornea clear 07/18/2017 None Full Exam - General 1994 Eyes conjunctiva/eyelids Overall: eyelids normal 07/18/2017 None Full Exam - General 1994 Eyes pupils and irises Overall: pupils equal, round, reactive to light and accomodation 07/18/2017 None Full Exam - General 1994 Ears/Nose/Throat otoscopic exam Overall: external auditory canals clear 07/18/2017 None Full Exam - General 1994 Ears/Nose/Throat otoscopic exam Overall: tympanic membranes clear 07/18/2017 None Full Exam - General 1994 Ears/Nose/Throat lips/teeth/gingiva Overall: benign lips 07/18/2017 None Full Exam - General 1994 Ears/Nose/Throat lips/teeth/gingiva Overall: normal dentition 07/18/2017 None Full Exam - General 1994 Ears/Nose/Throat oral cavity/pharynx/larynx Overall: oral mucosa clear 07/18/2017 None Full Exam - General 1994 Ears/Nose/Throat oral cavity/pharynx/larynx Overall: oropharyngeal mucosa clear 07/18/2017 None Full Exam - General 1994 Ears/Nose/Throat oral cavity/pharynx/larynx Overall: hypopharynx benign 07/18/2017 None Full Exam - General 1994 Ears/Nose/Throat oral cavity/pharynx/larynx Overall: no masses 07/18/2017 None Full Exam - General 1994 Respiratory auscultation Overall: breath sounds clear bilaterally 07/18/2017 None Full Exam - General 1994 Respiratory respiratory effort/rhythm Overall: no retractions 07/18/2017 None Full Exam - General 1994 Respiratory respiratory effort/rhythm Overall: normal rate 07/18/2017 None Full Exam - General 1994 Cardiovascular extremities Overall: no clubbing 07/18/2017 None Full Exam - General 1994 Cardiovascular auscultation of heart Overall: regular rate 07/18/2017 None Full Exam - General 1994 Cardiovascular auscultation of heart Overall: normal heart sounds 07/18/2017 None Full Exam - General 1994 Abdomen abdominal exam Overall: no tenderness 07/18/2017 None Full Exam - General 1994 Abdomen abdominal exam Overall: normal bowel sounds 07/18/2017 None Full Exam - General 1994 Musculoskeletal digits and nails Deformities/Nodules: dupuytren's contracture 07/18/2017 bilaterally palmar surface - digits 3/4 - scar on palmar surface of the left hand carpal tunnel - Full Exam - General 1994 Musculoskeletal upper extremity Palpation - wrist: joint swelling 07/18/2017 None Full Exam - General 1994 Musculoskeletal upper extremity Palpation - wrist: tender 07/18/2017 over thenar eminence Full Exam - General 1994 Musculoskeletal spine, ribs and pelvis Overall: spine benign 07/18/2017 None Full Exam - General 1994 Musculoskeletal spine, ribs and pelvis Overall: good posture 07/18/2017 None Full Exam - General 1994 Neurologic deep tendon reflexes Overall: deep tendon reflexes intact 07/18/2017 None Full Exam - General 1994 Neurologic cranial nerves Overall: crainial nerves 2 - 12 grossly intact 07/18/2017 None Full Exam - General 1994 Psychiatric orientation/consciousness Overall: oriented to person, place and time 07/18/2017 None Full Exam - General 1994 Psychiatric mood and affect Overall: normal mood and affect 07/18/2017 None Full Exam - General 1994 Integument inspection of skin Location: face 07/18/2017 right cheek AK Full Exam - General 1994 Integument inspection of skin Location: left arm 07/18/2017 wrist AK Full Exam - General 1994 Constitutional general appearance Development: well developed 01/17/2017 None Full Exam - General 1994 Constitutional general appearance Development: appears stated age 1101/17/2017 None Full Exam - General 1994 Constitutional general appearance Hygiene/Attention to Grooming: good hygiene 01/17/2017 None Full Exam - General 1994 Eyes conjunctiva/eyelids Overall: conjunctiva clear 01/17/2017 None Full Exam - General 1994 Eyes conjunctiva/eyelids Overall: cornea clear 01/17/2017 None Full Exam - General 1994 Eyes conjunctiva/eyelids Overall: eyelids normal 01/17/2017 None Full Exam - General 1994 Eyes pupils and irises Overall: pupils equal, round, reactive to light and accomodation 01/17/2017 None Full Exam - General 1994 Ears/Nose/Throat otoscopic exam Overall: external auditory canals clear 01/17/2017 None Full Exam - General 1994 Ears/Nose/Throat otoscopic exam Overall: tympanic membranes clear 01/17/2017 None Full Exam - General 1994 Ears/Nose/Throat lips/teeth/gingiva Overall: benign lips 01/17/2017 None Full Exam - General 1994 Ears/Nose/Throat lips/teeth/gingiva Overall: normal dentition 01/17/2017 None Full Exam - General 1994 Ears/Nose/Throat oral cavity/pharynx/larynx Overall: oral mucosa clear 01/17/2017 None Full Exam - General 1994 Ears/Nose/Throat oral cavity/pharynx/larynx Overall: oropharyngeal mucosa clear 01/17/2017 None Full Exam - General 1994 Ears/Nose/Throat oral cavity/pharynx/larynx Overall: hypopharynx benign 01/17/2017 None Full Exam - General 1994 Ears/Nose/Throat oral cavity/pharynx/larynx Overall: no masses 01/17/2017 None Full Exam - General 1994 Respiratory auscultation Overall: breath sounds clear bilaterally 01/17/2017 None Full Exam - General 1994 Respiratory respiratory effort/rhythm Overall: no retractions 01/17/2017 None Full Exam - General 1994 Respiratory respiratory effort/rhythm Overall: normal rate 01/17/2017 None Full Exam - General 1994 Cardiovascular extremities Overall: no clubbing 01/17/2017 None Full Exam - General 1994 Cardiovascular auscultation of heart Overall: regular rate 01/17/2017 None Full Exam - General 1994 Cardiovascular auscultation of heart Overall: normal heart sounds 01/17/2017 None Full Exam - General 1994 Abdomen abdominal exam Overall: no tenderness 01/17/2017 None Full Exam - General 1994 Abdomen abdominal exam Overall: normal bowel sounds 01/17/2017 None Full Exam - General 1994 Musculoskeletal digits and nails Deformities/Nodules: dupuytren's contracture 01/17/2017 bilaterally palmar surface - digits 3/4 - scar on palmar surface of the left hand carpal tunnel - Full Exam - General 1994 Musculoskeletal upper extremity Palpation - wrist: joint swelling 01/17/2017 None Full Exam - General 1994 Musculoskeletal upper extremity Palpation - wrist: tender 01/17/2017 over thenar eminence Full Exam - General 1994 Musculoskeletal spine, ribs and pelvis Overall: spine benign 01/17/2017 None Full Exam - General 1994 Musculoskeletal spine, ribs and pelvis Overall: good posture 01/17/2017 None Full Exam - General 1994 Neurologic deep tendon reflexes Overall: deep tendon reflexes intact 01/17/2017 None Full Exam - General 1994 Neurologic cranial nerves Overall: crainial nerves 2 - 12 grossly intact 01/17/2017 None Full Exam - General 1994 Psychiatric orientation/consciousness Overall: oriented to person, place and time 01/17/2017 None Full Exam - General 1994 Psychiatric mood and affect Overall: normal mood and affect 01/17/2017 None Full Exam - General 1994 Integument inspection of skin Location: scalp 01/17/2017 AK posterior scalp Full Exam - General 1994 Constitutional general appearance Development: well developed 07/19/2016 None Full Exam - General 1994 Constitutional general appearance Development: appears stated age 0507/19/2016 None Full Exam - General 1994 Constitutional general appearance Hygiene/Attention to Grooming: good hygiene 07/19/2016 None Full Exam - General 1994 Eyes conjunctiva/eyelids Overall: conjunctiva clear 07/19/2016 None Full Exam - General 1994 Eyes conjunctiva/eyelids Overall: cornea clear 07/19/2016 None Full Exam - General 1994 Eyes conjunctiva/eyelids Overall: eyelids normal 07/19/2016 None Full Exam - General 1994 Eyes pupils and irises Overall: pupils equal, round, reactive to light and accomodation 07/19/2016 None Full Exam - General 1994 Ears/Nose/Throat otoscopic exam Overall: external auditory canals clear 07/19/2016 None Full Exam - General 1994 Ears/Nose/Throat otoscopic exam Overall: tympanic membranes clear 07/19/2016 None Full Exam - General 1994 Ears/Nose/Throat lips/teeth/gingiva Overall: benign lips 07/19/2016 None Full Exam - General 1994 Ears/Nose/Throat lips/teeth/gingiva Overall: normal dentition 07/19/2016 None Full Exam - General 1994 Ears/Nose/Throat oral cavity/pharynx/larynx Overall: oral mucosa clear 07/19/2016 None Full Exam - General 1994 Ears/Nose/Throat oral cavity/pharynx/larynx Overall: oropharyngeal mucosa clear 07/19/2016 None Full Exam - General 1994 Ears/Nose/Throat oral cavity/pharynx/larynx Overall: hypopharynx benign 07/19/2016 None Full Exam - General 1994 Ears/Nose/Throat oral cavity/pharynx/larynx Overall: no masses 07/19/2016 None Full Exam - General 1994 Respiratory auscultation Overall: breath sounds clear bilaterally 07/19/2016 None Full Exam - General 1994 Respiratory respiratory effort/rhythm Overall: no retractions 07/19/2016 None Full Exam - General 1994 Respiratory respiratory effort/rhythm Overall: normal rate 07/19/2016 None Full Exam - General 1994 Cardiovascular extremities Overall: no clubbing 07/19/2016 None Full Exam - General 1994 Cardiovascular auscultation of heart Overall: regular rate 07/19/2016 None Full Exam - General 1994 Cardiovascular auscultation of heart Overall: normal heart sounds 07/19/2016 None Full Exam - General 1994 Abdomen abdominal exam Overall: no tenderness 07/19/2016 None Full Exam - General 1994 Abdomen abdominal exam Overall: normal bowel sounds 07/19/2016 None Full Exam - General 1994 Musculoskeletal digits and nails Deformities/Nodules: dupuytren's contracture 07/19/2016 bilaterally palmar surface - digits 3/4 - scar on palmar surface of the left hand carpal tunnel - Full Exam - General 1994 Musculoskeletal upper extremity Palpation - wrist: joint swelling 07/19/2016 None Full Exam - General 1994 Musculoskeletal upper extremity Palpation - wrist: tender 07/19/2016 over thenar eminence Full Exam - General 1994 Musculoskeletal spine, ribs and pelvis Overall: spine benign 07/19/2016 None Full Exam - General 1994 Musculoskeletal spine, ribs and pelvis Overall: good posture 07/19/2016 None Full Exam - General 1994 Integument inspection of skin Location: left hand 07/19/2016 x 1 on left hand dorsum Full Exam - General 1994 Integument inspection of skin Location: right hand 07/19/2016 x 1 on right hand dorsum Full Exam - General 1994 Integument inspection of skin Overall: few scattered moles, no gross abnormalities 07/19/2016 None Full Exam - General 1994 Neurologic deep tendon reflexes Overall: deep tendon reflexes intact 07/19/2016 None Full Exam - General 1994 Neurologic cranial nerves Overall: crainial nerves 2 - 12 grossly intact 07/19/2016 None Full Exam - General 1994 Psychiatric orientation/consciousness Overall: oriented to person, place and time 07/19/2016 None Full Exam - General 1994 Psychiatric mood and affect Overall: normal mood and affect 07/19/2016 None Full Exam - General 1994 Integument inspection of skin Location: ear 07/19/2016 right ear x 1 Full Exam - General 1994 Integument inspection of skin Location: face 07/19/2016 nose x 1 Full Exam - General 1994 Constitutional general appearance Development: well developed 01/19/2016 None Full Exam - General 1994 Constitutional general appearance Development: appears stated age 1101/19/2016 None Full Exam - General 1994 Constitutional general appearance Hygiene/Attention to Grooming: good hygiene 01/19/2016 None Full Exam - General 1994 Eyes conjunctiva/eyelids Overall: conjunctiva clear 01/19/2016 None Full Exam - General 1994 Eyes conjunctiva/eyelids Overall: cornea clear 01/19/2016 None Full Exam - General 1994 Eyes conjunctiva/eyelids Overall: eyelids normal 01/19/2016 None Full Exam - General 1994 Eyes pupils and irises Overall: pupils equal, round, reactive to light and accomodation 01/19/2016 None Full Exam - General 1994 Ears/Nose/Throat otoscopic exam Overall: external auditory canals clear 01/19/2016 None Full Exam - General 1994 Ears/Nose/Throat otoscopic exam Overall: tympanic membranes clear 01/19/2016 None Full Exam - General 1994 Ears/Nose/Throat lips/teeth/gingiva Overall: benign lips 01/19/2016 None Full Exam - General 1994 Ears/Nose/Throat lips/teeth/gingiva Overall: normal dentition 01/19/2016 None Full Exam - General 1994 Ears/Nose/Throat oral cavity/pharynx/larynx Overall: oral mucosa clear 01/19/2016 None Full Exam - General 1994 Ears/Nose/Throat oral cavity/pharynx/larynx Overall: oropharyngeal mucosa clear 01/19/2016 None Full Exam - General 1994 Ears/Nose/Throat oral cavity/pharynx/larynx Overall: hypopharynx benign 01/19/2016 None Full Exam - General 1994 Ears/Nose/Throat oral cavity/pharynx/larynx Overall: no masses 01/19/2016 None Full Exam - General 1994 Respiratory auscultation Overall: breath sounds clear bilaterally 01/19/2016 None Full Exam - General 1994 Respiratory respiratory effort/rhythm Overall: no retractions 01/19/2016 None Full Exam - General 1994 Respiratory respiratory effort/rhythm Overall: normal rate 01/19/2016 None Full Exam - General 1994 Cardiovascular extremities Overall: no clubbing 01/19/2016 None Full Exam - General 1994 Cardiovascular auscultation of heart Overall: regular rate 01/19/2016 None Full Exam - General 1994 Cardiovascular auscultation of heart Overall: normal heart sounds 01/19/2016 None Full Exam - General 1994 Abdomen abdominal exam Overall: no tenderness 01/19/2016 None Full Exam - General 1994 Abdomen abdominal exam Overall: normal bowel sounds 01/19/2016 None Full Exam - General 1994 Musculoskeletal digits and nails Deformities/Nodules: dupuytren's contracture 01/19/2016 bilaterally palmar surface - digits 3/4 - scar on palmar surface of the left hand carpal tunnel - Full Exam - General 1994 Musculoskeletal upper extremity Palpation - wrist: joint swelling 01/19/2016 None Full Exam - General 1994 Musculoskeletal upper extremity Palpation - wrist: tender 01/19/2016 over thenar eminence Full Exam - General 1994 Musculoskeletal spine, ribs and pelvis Overall: spine benign 01/19/2016 None Full Exam - General 1994 Musculoskeletal spine, ribs and pelvis Overall: good posture 01/19/2016 None Full Exam - General 1994 Integument inspection of skin Overall: few scattered moles, no gross abnormalities 01/19/2016 None Full Exam - General 1994 Neurologic deep tendon reflexes Overall: deep tendon reflexes intact 01/19/2016 None Full Exam - General 1994 Neurologic cranial nerves Overall: crainial nerves 2 - 12 grossly intact 01/19/2016 None Full Exam - General 1994 Psychiatric orientation/consciousness Overall: oriented to person, place and time 01/19/2016 None Full Exam - General 1994 Psychiatric mood and affect Overall: normal mood and affect 01/19/2016 None Full Exam - General 1994 Constitutional general appearance Development: well developed 07/22/2015 None Full Exam - General 1994 Constitutional general appearance Development: appears stated age 0507/22/2015 None Full Exam - General 1994 Constitutional general appearance Hygiene/Attention to Grooming: good hygiene 07/22/2015 None Full Exam - General 1994 Eyes conjunctiva/eyelids Overall: conjunctiva clear 07/22/2015 None Full Exam - General 1994 Eyes conjunctiva/eyelids Overall: cornea clear 07/22/2015 None Full Exam - General 1994 Eyes conjunctiva/eyelids Overall: eyelids normal 07/22/2015 None Full Exam - General 1994 Ears/Nose/Throat otoscopic exam Overall: external auditory canals clear 07/22/2015 None Full Exam - General 1994 Ears/Nose/Throat otoscopic exam Overall: tympanic membranes clear 07/22/2015 None Full Exam - General 1994 Ears/Nose/Throat lips/teeth/gingiva Overall: benign lips 07/22/2015 None Full Exam - General 1994 Ears/Nose/Throat lips/teeth/gingiva Overall: normal dentition 07/22/2015 None Full Exam - General 1994 Ears/Nose/Throat oral cavity/pharynx/larynx Overall: oral mucosa clear 07/22/2015 None Full Exam - General 1994 Respiratory auscultation Overall: breath sounds clear bilaterally 07/22/2015 None Full Exam - General 1994 Respiratory respiratory effort/rhythm Overall: no retractions 07/22/2015 None Full Exam - General 1994 Respiratory respiratory effort/rhythm Overall: normal rate 07/22/2015 None Full Exam - General 1994 Cardiovascular extremities Overall: no clubbing 07/22/2015 None Full Exam - General 1994 Cardiovascular auscultation of heart Overall: regular rate 07/22/2015 None Full Exam - General 1994 Cardiovascular auscultation of heart Overall: normal heart sounds 07/22/2015 None Full Exam - General 1994 Abdomen abdominal exam Overall: no tenderness 07/22/2015 None Full Exam - General 1994 Abdomen abdominal exam Overall: normal bowel sounds 07/22/2015 None Full Exam - General 1994 Musculoskeletal digits and nails Deformities/Nodules: dupuytren's contracture 07/22/2015 bilaterally palmar surface - digits 3/4 - scar on palmar surface of the left hand carpal tunnel - Full Exam - General 1994 Musculoskeletal spine, ribs and pelvis Overall: good posture 07/22/2015 None Full Exam - General 1994 Neurologic cranial nerves Overall: crainial nerves 2 - 12 grossly intact 07/22/2015 None Full Exam - General 1994 Psychiatric orientation/consciousness Overall: oriented to person, place and time 07/22/2015 None Full Exam - General 1994 Psychiatric mood and affect Overall: normal mood and affect 07/22/2015 None Full Exam - General 1994 Constitutional general appearance Development: well developed 01/13/2015 None Full Exam - General 1994 Constitutional general appearance Development: appears stated age 1101/13/2015 None Full Exam - General 1994 Constitutional general appearance Hygiene/Attention to Grooming: good hygiene 01/13/2015 None Full Exam - General 1994 Eyes conjunctiva/eyelids Overall: conjunctiva clear 01/13/2015 None Full Exam - General 1994 Eyes conjunctiva/eyelids Overall: cornea clear 01/13/2015 None Full Exam - General 1994 Eyes conjunctiva/eyelids Overall: eyelids normal 01/13/2015 None Full Exam - General 1994 Eyes pupils and irises Overall: pupils equal, round, reactive to light and accomodation 01/13/2015 None Full Exam - General 1994 Ears/Nose/Throat otoscopic exam Overall: external auditory canals clear 01/13/2015 None Full Exam - General 1994 Ears/Nose/Throat otoscopic exam Overall: tympanic membranes clear 01/13/2015 None Full Exam - General 1994 Ears/Nose/Throat lips/teeth/gingiva Overall: benign lips 01/13/2015 None Full Exam - General 1994 Ears/Nose/Throat lips/teeth/gingiva Overall: normal dentition 01/13/2015 None Full Exam - General 1994 Ears/Nose/Throat oral cavity/pharynx/larynx Overall: oral mucosa clear 01/13/2015 None Full Exam - General 1994 Ears/Nose/Throat oral cavity/pharynx/larynx Overall: oropharyngeal mucosa clear 01/13/2015 None Full Exam - General 1994 Ears/Nose/Throat oral cavity/pharynx/larynx Overall: hypopharynx benign 01/13/2015 None Full Exam - General 1994 Ears/Nose/Throat oral cavity/pharynx/larynx Overall: no masses 01/13/2015 None Full Exam - General 1994 Respiratory auscultation Overall: breath sounds clear bilaterally 01/13/2015 None Full Exam - General 1994 Respiratory respiratory effort/rhythm Overall: no retractions 01/13/2015 None Full Exam - General 1994 Respiratory respiratory effort/rhythm Overall: normal rate 01/13/2015 None Full Exam - General 1994 Cardiovascular extremities Overall: no clubbing 01/13/2015 None Full Exam - General 1994 Cardiovascular auscultation of heart Overall: regular rate 01/13/2015 None Full Exam - General 1994 Cardiovascular auscultation of heart Overall: normal heart sounds 01/13/2015 None Full Exam - General 1994 Abdomen abdominal exam Overall: no tenderness 01/13/2015 None Full Exam - General 1994 Abdomen abdominal exam Overall: normal bowel sounds 01/13/2015 None Full Exam - General 1994 Musculoskeletal digits and nails Deformities/Nodules: dupuytren's contracture 01/13/2015 bilaterally palmar surface - digits 3/4 - scar on palmar surface of the left hand carpal tunnel - Full Exam - General 1994 Musculoskeletal upper extremity Palpation - wrist: joint swelling 01/13/2015 None Full Exam - General 1994 Musculoskeletal upper extremity Palpation - wrist: tender 01/13/2015 over thenar eminence Full Exam - General 1994 Musculoskeletal spine, ribs and pelvis Overall: spine benign 01/13/2015 None Full Exam - General 1994 Musculoskeletal spine, ribs and pelvis Overall: good posture 01/13/2015 None Full Exam - General 1994 Neurologic deep tendon reflexes Overall: deep tendon reflexes intact 01/13/2015 None Full Exam - General 1994 Neurologic cranial nerves Overall: crainial nerves 2 - 12 grossly intact 01/13/2015 None Full Exam - General 1994 Psychiatric orientation/consciousness Overall: oriented to person, place and time 01/13/2015 None Full Exam - General 1994 Psychiatric mood and affect Overall: normal mood and affect 01/13/2015 None Full Exam - General 1994 Integument inspection of skin Rash/Lesions: nodule 01/13/2015 x 2 on scalp Full Exam - General 1994 Integument inspection of skin Location: scalp 01/13/2015 None Full Exam - General 1994 Integument inspection of skin Location: left hand 01/13/2015 x 1 on left hand dorsum Full Exam - General 1994 Integument inspection of skin Location: right hand 01/13/2015 x 2 on right hand dorsum Full Exam - General 1994 Integument inspection of skin Overall: few scattered moles, no gross abnormalities 01/13/2015 None Full Exam - General 1994 Constitutional general appearance Development: well developed 12/03/2014 None Full Exam - General 1994 Constitutional general appearance Development: appears stated age 1012/03/2014 None Full Exam - General 1994 Constitutional general appearance Hygiene/Attention to Grooming: good hygiene 12/03/2014 None Full Exam - General 1994 Eyes conjunctiva/eyelids Overall: conjunctiva clear 12/03/2014 None Full Exam - General 1994 Eyes conjunctiva/eyelids Overall: cornea clear 12/03/2014 None Full Exam - General 1994 Eyes conjunctiva/eyelids Overall: eyelids normal 12/03/2014 None Full Exam - General 1994 Eyes pupils and irises Overall: pupils equal, round, reactive to light and accomodation 12/03/2014 None Full Exam - General 1994 Ears/Nose/Throat otoscopic exam Overall: external auditory canals clear 12/03/2014 None Full Exam - General 1994 Ears/Nose/Throat otoscopic exam Overall: tympanic membranes clear 12/03/2014 None Full Exam - General 1994 Ears/Nose/Throat lips/teeth/gingiva Overall: benign lips 12/03/2014 None Full Exam - General 1994 Ears/Nose/Throat lips/teeth/gingiva Overall: normal dentition 12/03/2014 None Full Exam - General 1994 Ears/Nose/Throat oral cavity/pharynx/larynx Overall: oral mucosa clear 12/03/2014 None Full Exam - General 1994 Ears/Nose/Throat oral cavity/pharynx/larynx Overall: oropharyngeal mucosa clear 12/03/2014 None Full Exam - General 1994 Ears/Nose/Throat oral cavity/pharynx/larynx Overall: hypopharynx benign 12/03/2014 None Full Exam - General 1994 Ears/Nose/Throat oral cavity/pharynx/larynx Overall: no masses 12/03/2014 None Full Exam - General 1994 Respiratory auscultation Overall: breath sounds clear bilaterally 12/03/2014 None Full Exam - General 1994 Respiratory respiratory effort/rhythm Overall: no retractions 12/03/2014 None Full Exam - General 1994 Respiratory respiratory effort/rhythm Overall: normal rate 12/03/2014 None Full Exam - General 1994 Cardiovascular extremities Overall: no clubbing 12/03/2014 None Full Exam - General 1994 Cardiovascular auscultation of heart Overall: regular rate 12/03/2014 None Full Exam - General 1994 Cardiovascular auscultation of heart Overall: normal heart sounds 12/03/2014 None Full Exam - General 1994 Abdomen abdominal exam Overall: no tenderness 12/03/2014 None Full Exam - General 1994 Abdomen abdominal exam Overall: normal bowel sounds 12/03/2014 None Full Exam - General 1994 Musculoskeletal digits and nails Deformities/Nodules: dupuytren's contracture 12/03/2014 bilaterally palmar surface - digits 3/4 - scar on palmar surface of the left hand carpal tunnel - Full Exam - General 1994 Musculoskeletal upper extremity Palpation - wrist: joint swelling 12/03/2014 None Full Exam - General 1994 Musculoskeletal upper extremity Palpation - wrist: tender 12/03/2014 over thenar eminence Full Exam - General 1994 Musculoskeletal spine, ribs and pelvis Overall: spine benign 12/03/2014 None Full Exam - General 1994 Musculoskeletal spine, ribs and pelvis Overall: good posture 12/03/2014 None Full Exam - General 1994 Integument inspection of skin Overall: few scattered moles, no gross abnormalities 12/03/2014 None Full Exam - General 1994 Neurologic deep tendon reflexes Overall: deep tendon reflexes intact 12/03/2014 None Full Exam - General 1994 Neurologic cranial nerves Overall: crainial nerves 2 - 12 grossly intact 12/03/2014 None Full Exam - General 1994 Psychiatric orientation/consciousness Overall: oriented to person, place and time 12/03/2014 None Full Exam - General 1994 Psychiatric mood and affect Overall: normal mood and affect 12/03/2014 None Full Exam - General 1994 Constitutional general appearance Development: well developed 06/04/2014 None Full Exam - General 1994 Constitutional general appearance Development: appears stated age 0406/04/2014 None Full Exam - General 1994 Constitutional general appearance Hygiene/Attention to Grooming: good hygiene 06/04/2014 None Full Exam - General 1994 Eyes conjunctiva/eyelids Overall: conjunctiva clear 06/04/2014 None Full Exam - General 1994 Eyes conjunctiva/eyelids Overall: cornea clear 06/04/2014 None Full Exam - General 1994 Eyes conjunctiva/eyelids Overall: eyelids normal 06/04/2014 None Full Exam - General 1994 Eyes pupils and irises Overall: pupils equal, round, reactive to light and accomodation 06/04/2014 None Full Exam - General 1994 Ears/Nose/Throat otoscopic exam Overall: external auditory canals clear 06/04/2014 None Full Exam - General 1994 Ears/Nose/Throat otoscopic exam Overall: tympanic membranes clear 06/04/2014 None Full Exam - General 1994 Ears/Nose/Throat lips/teeth/gingiva Overall: benign lips 06/04/2014 None Full Exam - General 1994 Ears/Nose/Throat lips/teeth/gingiva Overall: normal dentition 06/04/2014 None Full Exam - General 1994 Ears/Nose/Throat oral cavity/pharynx/larynx Overall: oral mucosa clear 06/04/2014 None Full Exam - General 1994 Ears/Nose/Throat oral cavity/pharynx/larynx Overall: oropharyngeal mucosa clear 06/04/2014 None Full Exam - General 1994 Ears/Nose/Throat oral cavity/pharynx/larynx Overall: hypopharynx benign 06/04/2014 None Full Exam - General 1994 Ears/Nose/Throat oral cavity/pharynx/larynx Overall: no masses 06/04/2014 None Full Exam - General 1994 Respiratory auscultation Overall: breath sounds clear bilaterally 06/04/2014 None Full Exam - General 1994 Respiratory respiratory effort/rhythm Overall: no retractions 06/04/2014 None Full Exam - General 1994 Respiratory respiratory effort/rhythm Overall: normal rate 06/04/2014 None Full Exam - General 1994 Cardiovascular extremities Overall: no clubbing 06/04/2014 None Full Exam - General 1994 Cardiovascular auscultation of heart Overall: regular rate 06/04/2014 None Full Exam - General 1994 Cardiovascular auscultation of heart Overall: normal heart sounds 06/04/2014 None Full Exam - General 1994 Abdomen abdominal exam Overall: no tenderness 06/04/2014 None Full Exam - General 1994 Abdomen abdominal exam Overall: normal bowel sounds 06/04/2014 None Full Exam - General 1994 Musculoskeletal digits and nails Deformities/Nodules: dupuytren's contracture 06/04/2014 bilaterally palmar surface - digits 3/4 - scar on palmar surface of the left hand carpal tunnel - Full Exam - General 1994 Musculoskeletal upper extremity Palpation - wrist: joint swelling 06/04/2014 None Full Exam - General 1994 Musculoskeletal upper extremity Palpation - wrist: tender 06/04/2014 over thenar eminence Full Exam - General 1994 Musculoskeletal spine, ribs and pelvis Overall: spine benign 06/04/2014 None Full Exam - General 1994 Musculoskeletal spine, ribs and pelvis Overall: good posture 06/04/2014 None Full Exam - General 1994 Integument inspection of skin Overall: few scattered moles, no gross abnormalities 06/04/2014 None Full Exam - General 1994 Neurologic deep tendon reflexes Overall: deep tendon reflexes intact 06/04/2014 None Full Exam - General 1994 Neurologic cranial nerves Overall: crainial nerves 2 - 12 grossly intact 06/04/2014 None Full Exam - General 1994 Psychiatric orientation/consciousness Overall: oriented to person, place and time 06/04/2014 None Full Exam - General 1994 Psychiatric mood and affect Overall: normal mood and affect 06/04/2014 None Full Exam - General 1994 Constitutional general appearance Development: appears stated age 1012/10/2013 None Full Exam - General 1994 Constitutional general appearance Development: well developed 12/10/2013 None Full Exam - General 1994 Constitutional general appearance Hygiene/Attention to Grooming: good hygiene 12/10/2013 None Full Exam - General 1994 Eyes conjunctiva/eyelids Overall: conjunctiva clear 12/10/2013 None Full Exam - General 1994 Eyes conjunctiva/eyelids Overall: cornea clear 12/10/2013 None Full Exam - General 1994 Eyes conjunctiva/eyelids Overall: eyelids normal 12/10/2013 None Full Exam - General 1994 Eyes pupils and irises Overall: pupils equal, round, reactive to light and accomodation 12/10/2013 None Full Exam - General 1994 Ears/Nose/Throat otoscopic exam Overall: external auditory canals clear 12/10/2013 None Full Exam - General 1994 Ears/Nose/Throat otoscopic exam Overall: tympanic membranes clear 12/10/2013 None Full Exam - General 1994 Ears/Nose/Throat lips/teeth/gingiva Overall: benign lips 12/10/2013 None Full Exam - General 1994 Ears/Nose/Throat lips/teeth/gingiva Overall: normal dentition 12/10/2013 None Full Exam - General 1994 Ears/Nose/Throat oral cavity/pharynx/larynx Overall: hypopharynx benign 12/10/2013 None Full Exam - General 1994 Ears/Nose/Throat oral cavity/pharynx/larynx Overall: no masses 12/10/2013 None Full Exam - General 1994 Ears/Nose/Throat oral cavity/pharynx/larynx Overall: oral mucosa clear 12/10/2013 None Full Exam - General 1994 Ears/Nose/Throat oral cavity/pharynx/larynx Overall: oropharyngeal mucosa clear 12/10/2013 None Full Exam - General 1994 Respiratory auscultation Overall: breath sounds clear bilaterally 12/10/2013 None Full Exam - General 1994 Respiratory respiratory effort/rhythm Overall: no retractions 12/10/2013 None Full Exam - General 1994 Respiratory respiratory effort/rhythm Overall: normal rate 12/10/2013 None Full Exam - General 1994 Cardiovascular extremities Overall: no clubbing 12/10/2013 None Full Exam - General 1994 Cardiovascular auscultation of heart Overall: normal heart sounds 12/10/2013 None Full Exam - General 1994 Cardiovascular auscultation of heart Overall: regular rate 12/10/2013 None Full Exam - General 1994 Abdomen abdominal exam Overall: no tenderness 12/10/2013 None Full Exam - General 1994 Abdomen abdominal exam Overall: normal bowel sounds 12/10/2013 None Full Exam - General 1994 Integument inspection of skin Overall: few scattered moles, no gross abnormalities 12/10/2013 None Full Exam - General 1994 Neurologic deep tendon reflexes Overall: deep tendon reflexes intact 12/10/2013 None Full Exam - General 1994 Neurologic cranial nerves Overall: crainial nerves 2 - 12 grossly intact 12/10/2013 None Full Exam - General 1994 Psychiatric orientation/consciousness Overall: oriented to person, place and time 12/10/2013 None Full Exam - General 1994 Psychiatric mood and affect Overall: normal mood and affect 12/10/2013 None Full Exam - General 1994 Musculoskeletal spine, ribs and pelvis Overall: good posture 12/10/2013 None Full Exam - General 1994 Musculoskeletal spine, ribs and pelvis Overall: spine benign 12/10/2013 None Full Exam - General 1994 Musculoskeletal digits and nails Deformities/Nodules: dupuytren's contracture 12/10/2013 bilaterally palmar surface - digits 3/4 - scar on palmar surface of the left hand carpal tunnel - Full Exam - General 1994 Musculoskeletal upper extremity Palpation - wrist: joint swelling 12/10/2013 None Full Exam - General 1994 Musculoskeletal upper extremity Palpation - wrist: tender 12/10/2013 over thenar eminence Procedures Procedure Codes Date DESTRUCT PREMALG LESION CPT-4: 94363 08/29/2018 DESTRUCT PREMALG LES 2-14 CPT-4: 28400 08/29/2018 THER/PROPH/DIAG INJ SC/IM CPT-4: 01964 06/28/2018 TRIAMCINOLONE ACET I [place] NOS CPT-4: J3301 06/28/2018 DESTRUCT PREMALG LESION CPT-4: 05201 05/30/2018 DESTRUCT PREMALG LES 2-14 CPT-4: 12167 05/30/2018 DESTRUCT PREMALG LES 2-14 CPT-4: 96227 01/16/2018 DESTRUCT PREMALG LESION CPT-4: 00803 01/16/2018 DESTRUCT PREMALG LESION CPT-4: 19675 07/19/2016 DESTRUCT PREMALG LES 2-14 CPT-4: 61085 07/19/2016 DESTRUCT PREMALG LESION CPT-4: 16019 01/13/2015 DESTRUCT PREMALG LES 2-14 CPT-4: 52943 01/13/2015 Vital Signs Date Vital 08/29/2018 Blood Pressure 1: 136/62 Code: 8480-6 BMI: 33.3 Code: 95456-3 Heart Rate 1: 58 bpm Height: 5'11" SpO2: 98% Weight: 239 lbs 06/28/2018 BMI: 32.4 Code: 45909-7 Heart Rate 1: 70 bpm Height: 5'11" SpO2: 96% Weight: 232 lbs 05/30/2018 Blood Pressure 1: 140/68 Code: 8480-6 BMI: 32.9 Code: 29670-2 Heart Rate 1: 54 bpm Height: 5'11" SpO2: 96% Weight: 236 lbs 04/18/2018 Blood Pressure 1: 140/72 Code: 8480-6 BMI: 32.8 Code: 06921-6 Heart Rate 1: 52 bpm Height: 5'11" SpO2: 97% Weight: 235 lbs 03/13/2018 Blood Pressure 1: 150/80 Code: 8480-6 BMI: 32.5 Code: 97649-2 Heart Rate 1: 77 bpm Height: 5'11" SpO2: 97% Weight: 233 lbs 01/16/2018 Blood Pressure 1: 138/72 Code: 8480-6 BMI: 32.5 Code: 67466-3 Heart Rate 1: 54 bpm Height: 5'11" SpO2: 95% Weight: 233 lbs 07/18/2017 Blood Pressure 1: 138/68 Code: 8480-6 BMI: 32.2 Code: 31352-6 Heart Rate 1: 59 bpm Height: 5'11" SpO2: 96% Weight: 231 lbs 01/17/2017 Blood Pressure 1: 140/78 Code: 8480-6 BMI: 32.5 Code: 47510-3 Heart Rate 1: 52 bpm Height: 5'11" SpO2: 98% Weight: 233 lbs 07/19/2016 Blood Pressure 1: 140/74 Code: 8480-6 BMI: 32.4 Code: 84519-4 Heart Rate 1: 57 bpm Height: 5'11" SpO2: 95% Weight: 232 lbs 01/19/2016 Blood Pressure 1: 132/60 Code: 8480-6 BMI: 32.9 Code: 40746-4 Heart Rate 1: 58 bpm Height: 5'11" SpO2: 96% Weight: 236 lbs 07/22/2015 Blood Pressure 1: 158/78 Code: 8480-6 Blood Pressure 1: 150/78 Code: 8480-6 BMI: 31.9 Code: 86622-6 Heart Rate 1: 55 bpm Height: 5'11" SpO2: 98% Weight: 229 lbs 01/13/2015 Blood Pressure 1: 146/74 Code: 8480-6 BMI: 32.2 Code: 19145-6 Heart Rate 1: 63 bpm Height: 5'11" SpO2: 97% Weight: 231 lbs 12/03/2014 Blood Pressure 1: 142/78 Code: 8480-6 Blood Pressure 1: 128/75 Code: 8480-6 BMI: 32.4 Code: 64676-1 Heart Rate 1: 57 bpm Height: 5'11" SpO2: 95% Weight: 232 lbs 06/04/2014 Blood Pressure 1: 138/78 Code: 8480-6 BMI: 32.5 Code: 40609-0 Heart Rate 1: 56 bpm Height: 5'11" SpO2: 96% Weight: 233 lbs 12/10/2013 Blood Pressure 1: 122/78 Code: 8480-6 BMI: 32.2 Code: 83285-2 Heart Rate 1: 76 bpm Height: 5'11" Weight: 231 lbs Functional Status No Functional Status data History of Present Illness Symptom Name Status Resu lt Effective Date Notes Location on both hands 08/29/2018 None Quality chronic 08/29/2018 None Quality constant 08/29/2018 None Quality improving 08/29/2018 None Onset and Resolution o ngoing 08/29/2018 None Onset of Symptom year s ago 08/29/2018 None Triggers no known asso ciated factors 08/29/2018 None Alleviating Factors me dication 08/29/2018 None Quality chronic 08/29/2018 None Quality primary hypert ension 08/29/2018 None Onset and Resolution o ngoing 08/29/2018 None Onset of Symptom durin g adulthood 08/29/2018 None Alleviating Factors me dication 08/29/2018 None Quality chronic 08/29/2018 None Quality non-insulin de pendent 08/29/2018 None Test results HgbA1c [place] 6.9 08/29/2018 None Quality worsening 08/29/2018 None Alleviating Factors me dication 08/29/2018 None Exacerbating Factors d iet 08/29/2018 None Quality worsening 08/29/2018 None Onset and Resolution D enies ongoing 08/29/2018 None Triggers no known asso ciated factors 08/29/2018 None Location in the lung 06/28/2018 None Quality acute 06/28/2018 None Onset and Resolution s udden in onset 06/28/2018 None Pertinent Findings Den ies dyspnea 06/28/2018 None Location maxillary sin uses 06/28/2018 None Quality acute 06/28/2018 None Onset and Resolution D enies sudden in onset 06/28/2018 None Pertinent Findings Den ies fever 06/28/2018 None Pertinent Findings cough 06/28/2018 None Location on both hands 05/30/2018 None Quality chronic 05/30/2018 None Quality constant 05/30/2018 None Quality improving 05/30/2018 None Onset and Resolution o ngoing 05/30/2018 None Onset of Symptom year s ago 05/30/2018 None Triggers no known asso ciated factors 05/30/2018 None Alleviating Factors me dication 05/30/2018 None Location on both hands 04/18/2018 None Quality constant 04/18/2018 None Onset and Resolution o ngoing 04/18/2018 None Onset of Symptom year s ago 04/18/2018 None Quality chronic 04/18/2018 None Quality improving 04/18/2018 None Alleviating Factors me dication 04/18/2018 None Triggers no known asso ciated factors 04/18/2018 None Location on both hands 03/13/2018 None Quality constant 03/13/2018 None Onset and Resolution o ngoing 03/13/2018 None Onset of Symptom _ yea rs ago 03/13/2018 None Pertinent Findings Den ies dizziness 03/13/2018 None Pertinent Findings Den ies lightheadedness 03/13/2018 None 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 01/16/2018 None skin lesion Quality rais ed 01/16/2018 None skin lesion Onset and Resolution ongoing 01/16/2018 None skin lesion Onset of Symptom _ years ago 01/16/2018 None skin lesion Pertinent Findings Denies facial pain 01/16/2018 None skin lesion Quality white 01/16/2018 None hypertension Quality tab kaci hypertension 07/18/2017 None hypertension Onset and Resolution ongoing 07/18/2017 None hypertension Onset of Symptom during adulthood 07/18/2017 None hypertension Blood Pressure Values patient checking blood pressure at home - did not bring in readings 07/18/2017 None hypertension Alleviating Factors medication 07/18/2017 None hypertension Pertinent Findings dizziness 07/18/2017 "once in a while" if he h as been sitting for a long period and stands up- resolves quickly though hypertension Pertinent Findings Denies dyspnea 07/18/2017 None hypertension Pertinent Findings Denies edema 07/18/2017 except when he rides in a vehicle for a long time diabetes mellitus Quality non-insulin dependent 07/18/2017 None diabetes mellitus Severity mild 07/18/2017 None diabetes mellitus Alleviating Factors medication 07/18/2017 None diabetes mellitus Exacerbating Factors diet 07/18/2017 None diabetes mellitus Nutrition ADA diet 07/18/2017 None diabetes mellitus Pertinent Findings Denies nausea 07/18/2017 None diabetes mellitus Pertinent Findings Denies numbness 07/18/2017 None diabetes mellitus Pertinent Findings Denies tingling 07/18/2017 None diabetes mellitus Onset of Symptom onset as an adult 07/18/2017 None hypertension Quality chr onic 07/18/2017 None diabetes mellitus Quality chronic 07/18/2017 None diabetes mellitus Test results Pt not checking blood glucose readings at home 07/18/2017 None hypertension Severity no t consistently severe symptoms, the symptoms fluctuate from no symptoms to anxiety and headaches 07/18/2017 None hypertension Frequency of Episodes unchanged 07/18/2017 None hypertension Triggers no known associated factors 07/18/2017 None hypertension Onset and Resolution ongoing 01/17/2017 None hypertension Onset of Symptom during adulthood 01/17/2017 None hypertension Alleviating Factors medication 01/17/2017 None hypertension Pertinent Findings dizziness 01/17/2017 "once in a while" if he h as been sitting for a long period and stands up- resolves quickly though hypertension Pertinent Findings Denies dyspnea 01/17/2017 None hypertension Pertinent Findings Denies edema 01/17/2017 -He tries to keep his fee t elevated when he is at home diabetes mellitus Quality non-insulin dependent 01/17/2017 None diabetes mellitus Alleviating Factors medication 01/17/2017 None diabetes mellitus Exacerbating Factors diet 01/17/2017 None diabetes mellitus Nutrition ADA diet 01/17/2017 None diabetes mellitus Pertinent Findings Denies nausea 01/17/2017 None diabetes mellitus Pertinent Findings Denies numbness 01/17/2017 None diabetes mellitus Pertinent Findings Denies tingling 01/17/2017 None diabetes mellitus Onset of Symptom onset as an adult 01/17/2017 None hypertension Quality tab kaci hypertension 01/17/2017 None hypertension Blood Pressure Values patient checking blood pressure at home - did not bring in readings 01/17/2017 None diabetes mellitus Test results Pt not checking blood glucose readings at home 01/17/2017 None diabetes mellitus Severity mild 01/17/2017 None skin lesion Quality enla rging 07/19/2016 None skin lesion Quality firm 07/19/2016 None skin lesion Location fin alberto and/or fingers of left hand 07/19/2016 None hypertension Quality sta ble 07/19/2016 None hypertension Onset and Resolution ongoing 07/19/2016 None hypertension Onset of Symptom during adulthood 07/19/2016 None hypertension Blood Pressure Values not checking blood pressure at home 07/19/2016 None hypertension Alleviating Factors medication 07/19/2016 None hypertension Pertinent Findings dizziness 07/19/2016 -lightheadedness due to l eft ear issues hypertension Pertinent Findings Denies dyspnea 07/19/2016 None hypertension Pertinent Findings Denies edema 07/19/2016 None diabetes mellitus Quality non-insulin dependent 07/19/2016 None diabetes mellitus Alleviating Factors medication 07/19/2016 None diabetes mellitus Exacerbating Factors diet 07/19/2016 None diabetes mellitus Pertinent Findings Denies dyspnea 07/19/2016 None diabetes mellitus Pertinent Findings Denies nausea 07/19/2016 None diabetes mellitus Pertinent Findings Denies numbness 07/19/2016 None diabetes mellitus Pertinent Findings Denies tingling 07/19/2016 None diabetes mellitus Severity moderate 07/19/2016 None diabetes mellitus Test results HgbA1c level 5.8 07/19/2016 None diabetes mellitus Nutrition ADA diet 07/19/2016 None diabetes mellitus Onset of Symptom onset as an adult 07/19/2016 None skin lesion Quality enla rging 01/19/2016 None skin lesion Quality firm 01/19/2016 None skin lesion Location fin alberto and/or fingers of left hand 01/19/2016 None hypertension Onset and Resolution ongoing 07/22/2015 None hypertension Onset of Symptom during adulthood 07/22/2015 None hypertension Blood Pressure Values not checking blood pressure at home 07/22/2015 None hypertension Alleviating Factors medication 07/22/2015 None hypertension Quality sta ble 07/22/2015 None hypertension Pertinent Findings dizziness 07/22/2015 -lightheadedness due to l eft ear issues hypertension Pertinent Findings Denies dyspnea 07/22/2015 None hypertension Pertinent Findings Denies edema 07/22/2015 None diabetes mellitus Quality non-insulin dependent 07/22/2015 None diabetes mellitus Test results Pt not checking blood glucose readings at home 07/22/2015 None diabetes mellitus Glucose monitoring does not test 07/22/2015 None diabetes mellitus Alleviating Factors medication 07/22/2015 None diabetes mellitus Exacerbating Factors diet 07/22/2015 None diabetes mellitus Pertinent Findings Denies nausea 07/22/2015 None diabetes mellitus Pertinent Findings Denies numbness 07/22/2015 None diabetes mellitus Pertinent Findings Denies tingling 07/22/2015 None diabetes mellitus Pertinent Findings Denies dyspnea 07/22/2015 None dyskinesia or tremor Location on both hands 07/22/2015 -worse on the left- he is left handed dyskinesia or tremor Quality chronic 07/22/2015 None dyskinesia or tremor Quality intermittent 07/22/2015 None dyskinesia or tremor Onset and Resolution ongoing 07/22/2015 None dyskinesia or tremor Onset of Symptom 4-5 years ago 07/22/2015 at least rash Location-Major on t he head 01/13/2015 None rash Location-Major on t he hands 01/13/2015 None rash Color red 01/13/2015 None postnasal drip Onset of Symptom 1 years ago 12/03/2014 None postnasal drip Severity mild 12/03/2014 None postnasal drip Frequency of Episodes daily 12/03/2014 None postnasal drip Triggers no known associated factors 12/03/2014 None postnasal drip Pertinent Findings cough 12/03/2014 None postnasal drip Pertinent Findings Denies facial pain 12/03/2014 None sore throat Onset and Resolution worse during the day 12/03/2014 None sore throat Quality inte rmittent 12/03/2014 cough rt/t sinus drainage sore throat Onset of Symptom _ years ago 12/03/2014 None sore throat Pertinent Findings cough 12/03/2014 None sore throat Pertinent Findings Denies hoarseness 12/03/2014 None hand pain Location on th e left 06/04/2014 None hand pain Quality consta nt 06/04/2014 None hand pain Onset of Symptom 10 months ago 06/04/2014 None hand pain Pertinent Findings pain with movement 06/04/2014 None hand pain Pertinent Findings swelling 06/04/2014 reports fluid builds up wrist pain Location on t he left 06/04/2014 None wrist pain Location in t he radial region 06/04/2014 None wrist pain Quality chron ic 06/04/2014 None wrist pain Pertinent Findings decreased range of motion 06/04/2014 None wrist pain Pertinent Findings swelling 06/04/2014 None hand pain Quality improv ing 06/04/2014 None wrist pain Quality impro ving 06/04/2014 None hand pain Location on th e left 12/10/2013 None hand pain Quality consta nt 12/10/2013 None hand pain Quality worsen ing 12/10/2013 None hand pain Onset of Symptom 10 months ago 12/10/2013 None wrist pain Location on t he left 12/10/2013 None wrist pain Location in t he radial region 12/10/2013 None wrist pain Quality sharp pain 12/10/2013 None wrist pain Quality chron ic 12/10/2013 None hand pain Pertinent Findings pain with movement 12/10/2013 None hand pain Pertinent Findings swelling 12/10/2013 None hand pain Mechanism of injury direct trauma 12/10/2013 Fall on hand Jan 2013 now has pain/tremor wrist pain Pertinent Findings decreased range of motion 12/10/2013 None wrist pain Pertinent Findings swelling 12/10/2013 None Advance Directives No Advance Directive data Encounters Encounter Performer Loca tion Codes Date ([id number]) 62014 EST. P ATIENT, LEVEL IV Diagnosis: Essential (primary) hypertension[ICD10: I10] Diagnosis: Type 2 diabetes mellitus without complications[ICD10: E11.9] Diagnosis: Essential tremor[ICD10: G25.0] Diagnosis: Actinic keratosis[ICD10: L57.0] Renita Roberson MD, [facility] CPT-4: 56555 08/29/2018 09316 EST. PATIENT, LEVEL IV Diagnosis: Other acute sinusitis[ICD10: J01.80] Diagnosis: Other allergic rhinitis[ICD10: J30.89] Marielle Roberson MD, [facility] CPT-4: 34162 06/28/2018 ([id number]) 86066 EST. P ATIENT, LEVEL IV Diagnosis: Essential (primary) hypertension[ICD10: I10] Diagnosis: Essential tremor[ICD10: G25.0] Diagnosis: Mixed hyperlipidemia[ICD10: E78.2] Diagnosis: Myalgia, other site[ICD10: M79.18] Renita Roberson MD, [facility] CPT- 4: 38607 05/30/2018 ([id number]) 46253 EST. P ATIENT, LEVEL III Diagnosis: Essential tremor[ICD10: G25.0] Renita Roberson MD, [facility] CPT-4: 93289 04/18/2018 ([id number]) 64568 EST. P ATIENT, LEVEL IV Diagnosis: Essential tremor[ICD10: G25.0] Diagnosis: Essential (primary) hypertension[ICD10: I10] Renita Roberson MD, C CPT-4: 34879 03/13/2018 ([id number]) 12339 EST. P ATIENT, LEVEL IV Diagnosis: Type 2 diabetes mellitus without complications[ICD10: E11.9] Diagnosis: Essential (primary) hypertension[ICD10: I10] Diagnosis: Actinic keratosis[ICD10: L57.0] Diagnosis: Lumbago with sciatica, right side[ICD10: M54.41] Renita Roberson MD, C CPT-4: 30207 01/16/2018 ([id number]) 79430 EST. P ATIENT, LEVEL IV Diagnosis: Essential (primary) hypertension[ICD10: I10] Diagnosis: Type 2 diabetes mellitus without complications[ICD10: E11.9] Diagnosis: Actinic keratosis[ICD10: L57.0] Diagnosis: Mixed hyperlipidemia[ICD10: E78.2] Irlanda Roberson MD, [facility] CPT-4: 95441 07/18/2017 ([id number]) 56726 EST. P ATIENT, LEVEL IV Diagnosis: Essential (primary) hypertension[ICD10: I10] Diagnosis: Type 2 diabetes mellitus without complications[ICD10: E11.9] Diagnosis: Hypothyroidism, unspecified[ICD10: E03.9] Diagnosis: Actinic keratosis[ICD10: L57.0] Irlanda Roberson MD, [facility] CPT- 4: 28509 01/17/2017 ([id number]) 13692 EST. P ATIENT, LEVEL III Diagnosis: Essential (primary) hypertension[ICD10: I10] Diagnosis: Mixed hyperlipidemia[ICD10: E78.2] Diagnosis: Type 2 diabetes mellitus without complications[ICD10: E11.9] Diagnosis: Actinic keratosis[ICD10: L57.0] Irlanda Roberson MD, [facility] CPT- 4: 46053 07/19/2016 ([id number]) 71272 EST. P ATIENT, LEVEL IV Diagnosis: Essential (primary) hypertension[ICD10: I10] Diagnosis: Type 2 diabetes mellitus without complications[ICD10: E11.9] Diagnosis: Mixed hyperlipidemia[ICD10: E78.2] Renita Roberson MD, [facility] CPT- 4: 78689 01/19/2016 90598 EST. PATIENT, LEVEL IV Diagnosis: Essential (primary) hypertension[ICD10: I10] Diagnosis: Type 2 diabetes mellitus without complications[ICD10: E11.9] Marielle Roberson MD, [facility] CPT-4: 73005 07/22/2015 ([id number]) 56761 EST. P ATIENT, LEVEL III Diagnosis: Essential (primary) hypertension[ICD10: I10] Diagnosis: Actinic keratosis[ICD10: L57.0] Diagnosis: Personal history of diseases of the skin and subcutaneous tissue[ICD10: Z87.2] Renita Roberson MD, [facility] CPT-4: 04105 01/13/2015 ([id number]) 55491 EST. P ATIENT, LEVEL IV Diagnosis: Essential (primary) hypertension[ICD10: I10] Diagnosis: Other abnormal glucose[ICD10: R73.09] Renita Roberson MD, [facility] CPT-4: 13052 12/03/2014 ([id number]) 54629 EST. P ATIENT, LEVEL IV Diagnosis: ESSENTIAL HYPERTENSION[ICD9: 401.9] Diagnosis: Benign paroxysmal positional vertigo[ICD9: 386.11] Renita Roberson MD, C CPT-4: 06708 06/04/2014 ([id number]) OFFICE VISI T, NEW - LEVEL 4 Diagnosis: ESSENTIAL HYPERTENSION[ICD9: 401.9] Diagnosis: Wrist pain, chronic[ICD9: 719.43] Diagnosis: Benign paroxysmal positional vertigo[ICD9: 386.11] Renita Roberson MD, C CPT-4: 54727 12/10/2013 Plan of Care Planned Activity Notes C odes Status Date Visit Plan: Hypertension - well con trolled - continue with current medications, continue with no added salt diet. Pt has been encouraged to exercise daily. The pt has been advised to call the office if there are any acute concerns about change in blood pressure readings at home. Essential tremor - discussed with patient - he had to stop his ropinirole shortly after his last office visit due to blurry vision and other symptoms associated with the medication. 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 Diabetes Mellitus - controlled - per recent FSBS reports. I have recommended for the patient to have follow up labs prior to the next office visit. The patient has been instructed to continue with current medications as previously directed, continue with regular FSBS monitoring to assure continued control of diabetes. Pt to call for any acute concerns, complaints, or if the blood glucose readings are starting to become less controlled. Actinic Keratosis - treated with cryotherapy x 3 on scientology and cheek 08/29/2018 Appointment: Renita Roberson WPtel: [address] [place], [place] [phone] (15 min) Moderate 08/29/2018 Patient Education: Patient Medication Summary Completed 08/29/2018 Patient Education: Diabetes Completed 08/29/2018 Patient Education: Patient Medication Summary Completed 08/14/2018 Care Plan: Comp Metabolic Pending 08/14/2018 Care Plan: Cbc With Differential Pending 08/14/2018 Care Plan: Tsh Pending 08/14/2018 Care Plan: Free T4 Pending 08/14/2018 Care Plan: %Hba1C FABI C : 87230-9 Pending 08/14/2018 Appointment: Renita Roberson WPtel: [address] [place] [address] (15 min) Moderate 07/17/2018 Visit Plan: Sinusitis - Pt has acut e infection - pain in face, maxillary region, Pt informed to use decongestant, RX given to patient, sinus rinses also recommended. Call if symptoms do not show improvement. Allerg ies - chronic - recommended pt to use allergy medication as prescribed. Pt has been counseled as to the appropriate use of the medication. Pt to call if allergy symptoms are not controlled with the medication. If using nasal spray, instructions as follows: Nasal spray- use twice daily, one spray per nostril twice daily, after 30 minutes, rinse out nose with saline spray.. Use opposite hand per nostril to spray in the nasal steroid allergy spray. 06/28/2018 Appointment: Marielle Brush WPtel: [address] [place] [address] (15 min) Moderate 06/28/2018 Patient Education: Patient Medication Summary Completed 06/28/2018 Visit Plan: Hypertension - well con trolled - continue with current medications, continue with no added salt diet. Pt has been encouraged to exercise daily. The pt has been advised to call the office if there are any acute concerns about change in blood pressure readings at home. Edema at ankles bilaterally - and Muscle aches - pt advised as follows: - stop the simvastatin - - this medication interacts with the AMLODIPINE the ankle swelling is due to the Amlodipine - it causes dilation of blood vessels. start on ATORVASTATIN - the new cholesterol medication - in TWO WEEKS pickle processor Qunol - coenzyme q10 - it is o magali the counter - start taking this now as it can help to decrease the muscle side effects of the cholesterol medication Actinic Keratosis - treated with cryotherapy x 3, pt advised on how to appropriately care for the lesion. Call if not improved after thorough healing. 05/30/2018 Appointment: Renita Roberson WPtel: [phone] [facility] (15 min) Moderate 05/30/2018 Patient Education: Patient Medication Summary Completed 05/30/2018 Patient Education: Cholesterol Management Completed 05/30/2018 Visit Plan: Essential tremor - incr ease the requip to 0.25mg - 1.5 pills twice daily x 4 days then increase to 0.5mg (two pills) twice daily - I sent the [facility] RX to [facility] - you can call the pharmacy when you are ready to pickle processor this higher dose. 04/18/2018 Appointment: Renita Roberson WPtel: [phone] [facility] (15 min) Moderate 04/18/2018 Patient Education: Patient Medication Summary Completed 04/18/2018 Visit Plan: Essential Tremor - star t on the new medication - ropinirole - 0.25mg tablet - take it in the morning and early evening (around 5pm). Hypertension - well controlled - continue with current medications, c ontinue with no added salt diet. Pt has been encouraged to exercise daily. The pt has been advised to call the office if there are any acute concerns about change in blood pressure readings at home. 03/13/2018 Appointment: Renita Roberson WPtel: [facility] (15 min) Moderate 03/13/2018 Patient Education: Patient Medication Summary Completed 03/13/2018 Patient Education: Hypertension Completed 03/13/2018 Visit Plan: Diabetes Mellitus - con jose maria - per recent FSBS reports. I have recommended for the patient to have follow up labs prior to the next office visit. The patient has been instructed to continue with current medications as previously directed, continue with regular FSBS monitoring to assure continued control of diabetes. Pt to call for any acute concerns, complaints, or if the blood glucose readings are starting to become less controlled. Hypertension - well controlled - continue with current medications, continue with no added salt diet. Pt has been encouraged to exercise daily. The pt has been advised to call the office if there are any acute concerns about change in blood pressure readings at home. Leg pain on right - low back pain - I have recommended pt to have estim with L[facility]. Actinic Keratosis - treated with cryotherapy x 3, pt advised on how to appropriately care for the lesion. Call if not improved after thorough healing. 01/16/2018 Appointment: Sem[facility]Katheriney [facility] [phone] [facility] [place] (15 min) Moderate 01/16/2018 Patient Education: Patient Medication Summary Completed 01/16/2018 Patient Education: Diabetes Completed 01/16/2018 Patient Education: Hypertension Completed 01/16/2018 Patient Education: Patient Medication Summary Completed 01/10/2018 Patient Education: Diabetes Completed 01/10/2018 Patient Education: Hypertension Completed 01/10/2018 Patient Education: Cholesterol Management Completed 01/10/2018 Visit Plan: Hypertension - well con trolled - continue with current medications, continue with no added salt diet. Pt has been encouraged to exercise daily. The pt has been advised to call the office if there are any acute concerns about change in blood pressure readings at home. Diabetes Mellitus - controlled - per recent FSBS reports. I have recommended for the patient to have follow up labs prior to the next office visit. The patient has been instructed to continue with current medications as previously directed, continue with regular FSBS monitoring to assure continued control of diabetes. Pt to call for any acute concerns, complaints, or if the blood glucose readings are starting to become less controlled. Hyperlipidemia - pt has been counseled about appropriate diet, exercise, and need for low fat food choices. I have discussed the need for the patient to take medications as prescribed. If the patient has negative side effects from the medication, they are to CALL the office and not abruptly discontinue the medication without discussion with a practitioner in the office. We will check labs in 3-6 months for follow up on the patient's chronic medical problem and to assure normal liver response to me dications. AK-right cheek-left wrist -cryotherapy today in the office 07/18/2017 Appointment: [facility]landa [facility]erta [facility] [phone] [phone] [place] (30 min) Complex 07/18/2017 Patient Education: Patient Medication Summary Completed 07/18/2017 Patient Education: Patient Medication Summary Completed 04/20/2017 Visit Plan: Hypertension - well con trolled - continue with current medications, continue with no added salt diet. Pt has been encouraged to exercise daily. The pt has been advised to call the office if there are any acute concerns about change in blood pressure readings at home. Diabetes Mellitus - controlled - per recent FSBS reports. I have recommended for the patient to have follow up labs prior to the next office visit. The patient has been instructed to continue with current medications as previously directed, continue with regular FSBS monitoring to assure continued control of diabetes. Pt to call for any acute concerns, complaints, or if the blood glucose readings are starting to become less controlled. Hypothyroidism-patient wants to repeat labs in 3 months-if TSH still elevated, will start medication AK-posterior scalp-cryotherapy today in the office 01/17/2017 Appointment: Irlanda Huerta WPtel: [phone] [phone] (30 min) Complex 01/17/2017 Patient Education: Patient Medication Summary Completed 01/17/2017 Patient Education: Obesity Completed 01/17/2017 Patient Education: Patient Medication Summary Completed 01/05/2017 Visit Plan: Hypertension - well con trolled - continue with current medications, continue with no added salt diet. Pt has been encouraged to exercise daily. The pt has been advised to call the office if there are any acute concerns about change in blood pressure readings at home. Diabetes Mellitus - controlled - I have recommended for the patient to have follow up labs prior to the next office visit. The patient has been instructed to continue with current medications as previously directed, continue with regular FSBS monitoring to assure continued control of diabetes. Pt to call for any acute concerns, complaints, or if the blood glucose readings are starting to become less controlled. AK-cryotherapy of lesions on left and right hands, right ear, and nose 07/19/2016 Appointment: Irlanda Huerta WPtel: [phone] [phone] (30 min) Complex 07/19/2016 Patient Education: Patient Medication Summary Completed 07/19/2016 Patient Education: Obesity Completed 07/19/2016 Patient Education: Patient Medication Summary Completed 07/14/2016 Appointment: Gonsalo Marielle [facility]Ptel[facility] [phone] [facility] [facility] - Annual Wellness Visit 01/28/2016 Appointment: Irlanda Huerta [facility]Ptel[facility] [phone] [phone] [facility] - Annual Wellness Visit 01/26/2016 Visit Plan: Diabetes Mellitus - con trolled - per recent FSBS reports. I have recommended for the patient to have follow up labs prior to the next office visit. The patient has been instructed to continue with current medications as previously directed, continue with regular FSBS monitoring to assure continued control of diabetes. Pt to call for any acute concerns, complaints, or if the blood glucose readings are starting to become less controlled. Hypertension - well controlled - continue with current medications, continue with no added salt diet. Pt has been encouraged to exercise daily. The pt has been advised to call the office if there are any acute concerns about change in blood pressure readings at home. Hyperlipidemia - pt has been counseled about appropriate diet, exercise, and need for low fat food choices. I have discussed the need for the patient to take medications as prescribed. If the patient has negative side effects from the medication, they are to CALL the office and not abruptly discontinue the medication without discussion with a practitioner in the office. We will check labs in 3-6 months for follow up on the patient's chronic medical problem and to assure normal liver response to me dications. 01/19/2016 Appointment: Renita Roberson WPtel: [phone] [facility] (15 min) Moderate 01/19/2016 Patient Education: Patient Medication Summary Completed 01/19/2016 Patient Education: Obesity Completed 01/19/2016 Patient Education: Hypertension Completed 01/19/2016 Visit Plan: Hypertension - continue with current medications, continue with no added salt diet. Pt has been encouraged to exercise daily. The pt has been advised to call the office if there are any acute concerns about change in blood pressure readings at home. Diabetes Mellitus - I have recommended for the patient to have follow up labs prior to the next office visit. The patient has been instructed to continue with current medications as previously directed, continue with regular FSBS monitoring to assure continued control of diabetes. Pt to call for any acute concerns, complaints, or if the blood glucose readings are starting to become less controlled. 07/22/2015 Appointment: (15 min) Moderate 07/22/2015 Patient Education: Patient Medication Summary Completed 07/22/2015 Appointment: Lab Draw 07/10/2015 Visit Plan: Hypertension - well con trolled - continue with current medications, continue with no added salt diet. Pt has been encouraged to exercise daily. The pt has been advised to call the office if there are any acute concerns about change in blood pressure readings at home. cryotherapy of lesions on left and right hands and posterior right scalp 01/13/2015 Appointment: Renita Roberson [facility]Ptel[facility] [phone] [facility] (15 min) Moderate 01/13/2015 Patient Education: Patient Medication Summary Completed 01/13/2015 Patient Education: Hypertension Completed 01/13/2015 Visit Plan: Hypertension - well con trolled - continue with current medications, continue with no added salt diet. Pt has been encouraged to exercise daily. The pt has been advised to call the office if there are any acute concerns about change in blood pressure readings at home. Allergies - chronic - recommended pt to use allergy medication as prescribed. Pt has been counseled as to the appropriate use of the medication. Pt to call if allergy symptoms are not controlled with the medication. If using nasal spray, instructions as follows: Nasal spray- use twice daily, one spray per nostril twice daily, after 30 minutes, rinse out nose with saline spray.. Use opposite hand per nostril to spray in the nasal steroid allergy spray. Abnormal glucose - check labs, continue with metformin 12/03/2014 Appointment: Renita Roberson WPtel: [phone] [facility] Follow up 12/03/2014 Patient Education: Patient Medication Summary Completed 12/03/2014 Patient Education: Hypertension Completed 12/03/2014 Visit Plan: Hypertension - well con trolled - continue with current medications, continue with no added salt diet. Pt has been encouraged to exercise daily. The pt has been advised to call the office if there are any acute concerns about change in blood pressure readings at home. BPPV - Benign Paroxysmal Positional Vertigo - discussed diagnosis with the patient, offered the pt the appropriate additional information in hand-out. Pt instructed in home exercises to help alleviate and prevent future recurrent episodes of vertigo. Pt informed that if symptoms worsen, call the office for further instructions/medication interventions. 06/04/2014 Appointment: Renita Roberson WPtel: [phone] [facility] Follow up 06/04/2014 Patient Education: Patient Medication Summary Completed 06/04/2014 Patient Education: Hypertension Completed 06/04/2014 Care Plan: Referral Order SNOMED-CT : [id number] Ordered 06/04/2014 Visit Plan: Hypertension - well con trolled - continue with current medications, continue with no added salt diet. Pt has been encouraged to exercise daily. The pt has been advised to call the office if there are any acute concerns about change in blood pressure readings at home. BPPV - Benign Paroxysmal Positional Vertigo - discussed diagnosis with the patient, offered the pt the appropriate additional information in hand-out. Pt instructed in home exercises to help alleviate and prevent future recurrent episodes of vertigo. Pt informed that if symptoms worsen, call the office for further instructions/medication interventions. Await further labs/studies from Dr. Starr. Wrist pain - pt to see surgeon about second opinion - set up by Dr. Starr. 12/10/2013 Appointment: Renita Roberson WPtel: [address] [place], [place] [phone] bringing in new pt paperwork New Patient 12/10/2013 Patient Education: Patient Medication Summary Completed 12/10/2013 Patient Education: Hypertension Completed 12/10/2013 Referral: Don Rodriguez WPtel: [phone] [facility] Referral Appointment Requested Instructions Comment increase the requip to 0.25mg - 1.5 pills twice daily x 4 days then increase to 0.5mg (two pills) twice daily - I [facility] the [facility] RX [facility] - you can call the pharmacy when you are ready to pickle processor this higher dose. . Essential tremor - increase the requip to 0.25mg - 1.5 pills twice daily x 4 days then increase to 0.5mg (two pills) twice daily - I sent the new RX to [facility] - you can call the pharmacy when you are ready to pickle processor this higher dose. . Diabetes Mellitus - controlled - per recent FSBS reports. I have recommended for the patient to have follow up labs prior to the next office visit. The patient has been instructed to continue with current medications as previously directed, continue with regular FSBS monitoring to assure continued control of diabetes. Pt to call for any acute concerns, complaints, or if the blood glucose readings are starting to become less controlled. Hypertension - well controlled - continue with current medications, continue with no added salt diet. Pt has been encouraged to exercise daily. The pt has been advised to call the office if there are any acute concerns about change in blood pressure readings at home. Hyperlipidemia - pt has been counseled about appropriate diet, exercise, and need for low fat food choices. I have discussed the need for the patient to take medications as prescribed. If the patient has negative side effects from the medication, they are to CALL the office and not abruptly discontinue the medication without discussion with a practitioner in the office. We will check labs in 3-6 months for follow up on the patient's chronic medical problem and to assure normal liver response to medications. . Hypertension - con tinue with current medications, continue with no added salt diet. Pt has been encouraged to exercise daily. The pt has been advised to call the office if there are any acute concerns about change in blood pressure readings at home. Diabetes Mellitus - I have recommended for the patient to have follow up labs prior to the next office visit. The patient has been instructed to continue with current medications as previously directed, continue with regular FSBS monitoring to assure continued control of diabetes. Pt to call for any acute concerns, complaints, or if the blood glucose readings are starting to become less controlled. start on the new med ication - ropinirole - 0.25mg tablet - take it in the morning and early evening (around 5pm) . Essential Tremor - start on the new me dication - ropinirole - 0.25mg tablet - take it in the morning and early evening (around 5pm). Hypertension - well controlled - continue with current medications, continue with no added salt diet. Pt has been encouraged to exercise daily. The pt has been advised to call the office if there are any acute concerns about change in blood pressure readings at home. . Diabetes Mellitus - controlled - per recent FSBS reports. I have recommended for the patient to have follow up labs prior to the next office visit. The patient has been instructed to continue with current medications as previously directed, continue with regular FSBS monitoring to assure continued control of diabetes. Pt to call for any acute concerns, complaints, or if the blood glucose readings are starting to become less controlled. Hypertension - well controlled - continue with current medications, continue with no added salt diet. Pt has been encouraged to exercise daily. The pt has been advised to call the office if there are any acute concerns about change in blood pressure readings at home. Leg pain on right - low back pain - I have recommended pt to have estim with [facility]. Actinic Keratosis - treated with cryotherapy x 3, pt advised on how to appropriately care for the lesion. Call if not improved after thorough healing. . Hypertension - wel l controlled - continue with current medications, continue with no added salt diet. Pt has been encouraged to exercise daily. The pt has been advised to call the office if there are any acute concerns about change in blood pressure readings at home. Diabetes Mellitus - controlled - I have recommended for the patient to have follow up labs prior to the next office visit. The patient has been instructed to continue with current medications as previously directed, continue with regular FSBS monitoring to assure continued control of diabetes. Pt to call for any acute concerns, complaints, or if the blood glucose readings are starting to become less controlled. AK-cryotherapy of lesions on left and right hands, right ear, and nose hold aspirin until t he prednisone is completed . Hypertension - well controlled - becca nue with current medications, continue with no added salt diet. Pt has been encouraged to exercise daily. The pt has been advised to call the office if there are any acute concerns about change in blood pressure readings at home. BPPV - Benign Paroxysmal Positional Vertigo - discussed diagnosis with the patient, offered the pt the appropriate additional information in hand-out. Pt instructed in home exercises to help alleviate and prevent future recurrent episodes of vertigo. Pt informed that if symptoms worsen, call the office for further instructions/medication interventions. Await further labs/studies from Dr. Starr. Wrist pain - pt to see surgeon about second opinion - set up by Dr. Starr. . Hypertension - wel l controlled - continue with current medications, continue with no added salt diet. Pt has been encouraged to exercise daily. The pt has been advised to call the office if there are any acute concerns about change in blood pressure readings at home. BPPV - Benign Paroxysmal Positional Vertigo - discussed diagnosis with the patient, offered the pt the appropriate additional information in hand-out. Pt instructed in home exercises to help alleviate and prevent future recurrent episodes of vertigo. Pt informed that if symptoms worsen, call the office for further instructions/medication interventions. . Hypertension - wel l controlled - continue with current medications, continue with no added salt diet. Pt has been encouraged to exercise daily. The pt has been advised to call the office if there are any acute concerns about change in blood pressure readings at home. Essential tremor - discussed with patient - he had to stop his ropinirole shortly after his last office visit due to blurry vision and other symptoms associated with the medication. 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 Diabetes Mellitus - controlled - per recent FSBS reports. I have recommended for the patient to have follow up labs prior to the next office visit. The patient has been instructed to continue with current medications as previously directed, continue with regular FSBS monitoring to assure continued control of diabetes. Pt to call for any acute concerns, complaints, or if the blood glucose readings are starting to become less controlled. Actinic Keratosis - treated with cryotherapy x 3 on scientology and cheek stop the simvastatin - - this medication interacts with the AMLODIPINE the ankle swelling is due to the Amlodipine - it causes dilation of blood vessels. 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 Hypertension - well controlled - becca nue with current medications, continue with no added salt diet. Pt has been encouraged to exercise daily. The pt has been advised to call the office if there are any acute concerns about change in blood pressure readings at home. Edema at ankles bilaterally - and Muscle aches - pt advised as follows: - stop the simvastatin - - this medication interacts with the AMLODIPINE the ankle swelling is due to the Amlodipine - it causes dilation of blood vessels. 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 Call if not improved after thorough healing. . Hypertension - wel l controlled - continue with current medications, continue with no added salt diet. Pt has been encouraged to exercise daily. The pt has been advised to call the office if there are any acute concerns about change in blood pressure readings at home. Diabetes Mellitus - controlled - per recent FSBS reports. I have recommended for the patient to have follow up labs prior to the next office visit. The patient has been instructed to continue with current medications as previously directed, continue with regular FSBS monitoring to assure continued control of diabetes. Pt to call for any acute concerns, complaints, or if the blood glucose readings are starting to become less controlled. Hyperlipidemia - pt has been counseled about appropriate diet, exercise, and need for low fat food choices. I have discussed the need for the patient to take medications as prescribed. If the patient has negative side effects from the medication, they are to CALL the office and not abruptly discontinue the medication without discussion with a practitioner in the office. We will check labs in 3-6 months for follow up on the patient's chronic medical problem and to assure normal liver response to medications. AK-right cheek-left wrist -cryotherapy today in the office mucinex one pill twi ce daily Nasal spray- use twice daily, one spray per nostril twice daily, after 30 minutes, rinse out nose with saline spray.. Use opposite hand per nostril to spray in the nasal steroid allergy spray. . Hypertension - well controlled - becca nue with current medications, continue with no added salt diet. Pt has been encouraged to exercise daily. The pt has been advised to call the office if there are any acute concerns about change in blood pressure readings at home. Allergies - chronic - recommended pt to use allergy medication as prescribed. Pt has been counseled as to the appropriate use of the medication. Pt to call if allergy symptoms are not controlled with the medication. If using nasal spray, instructions as follows: Nasal spray- use twice daily, one spray per nostril twice daily, after 30 minutes, rinse out nose with saline spray.. Use opposite hand per nostril to spray in the nasal steroid allergy spray. Abnormal glucose - check labs, continue with metformin . Hypertension - wel l controlled - continue with current medications, continue with no added salt diet. Pt has been encouraged to exercise daily. The pt has been advised to call the office if there are any acute concerns about change in blood pressure readings at home. cryotherapy of lesions on left and right hands and posterior right scalp . Hypertension - wel l controlled - continue with current medications, continue with no added salt diet. Pt has been encouraged to exercise daily. The pt has been advised to call the office if there are any acute concerns about change in blood pressure readings at home. Diabetes Mellitus - controlled - per recent FSBS reports. I have recommended for the patient to have follow up labs prior to the next office visit. The patient has been instructed to continue with current medications as previously directed, continue with regular FSBS monitoring to assure continued control of diabetes. Pt to call for any acute concerns, complaints, or if the blood glucose readings are starting to become less controlled. Hypothyroidism-patient wants to repeat labs in 3 months-if TSH still elevated, will start medication AK-posterior scalp-cryotherapy today in the office . Sinusitis - Pt has acute infection - pain in face, maxillary region, Pt informed to use decongestant, RX given to patient, sinus rinses also recommended. Call if symptoms do not show improvement. Allergies - chronic - recommended pt to use allergy medication as prescribed. Pt has been counseled as to the appropriate use of the medication. Pt to call if allergy symptoms are not controlled with the medication. If using nasal spray, instructions as follows: Nasal spray- use twice daily, one spray per nostril twice daily, after 30 minutes, rinse out nose with saline spray.. Use opposite hand per nostril to spray in the nasal steroid allergy spray.
--- OUTSIDE RECORDS SUMMARY | 2019-06-22 15:15 | XMS REPORT | CCD ---
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 Name Role Phone PP Unavailable CCM Unavailable Summary Purpose Interface Exchange Insurance Providers Payer name Policy type / Coverage type Covered democrat ID Effective Begin Date Effective End Date WPS Medicare Part B Medicare Part B [id number] Unknown [facility] icare Part B [id number] Un known Family history Father Diagnosis Age At Onset Hypertension Unknown Brother Diagnosis Age At Onset Coronary Artery Disease Unknown Cancer Unknown Hypertension Unknown Mother Diagnosis Age At Onset Hypertension Unknown Social History Social History Element Codes Description Effective Dates Marital status Unknown M arried 12/10/2013 Number of children Unknown 2 12/10/2013 Employment Unknown Retir ed 12/10/[address]: 1297279 Former smoker quit 1980 12/10/[address]: 347004812 Never drinks alcohol 12/10/2013 Allergies, Adverse Reactions, [...] Instruc tions Start Date Stop Date Sta tus Fill Instructions Kenalog 40 mg/mL darrian pension for injection RxNorm: 9472873 Milliliter(s) Inj 06/28/2018 06/28/2018 In active Keflex 500 mg capsule RxNorm: 976110 1 Capsule(s) PO TID 06/28/2018 07/07/2018 Inactive atorvastatin 10 mg t ablet RxNorm: 037552 1 Tablet(s) PO QHS 05/30/2018 05/24/2019 Active amlodipine 10 mg tablet RxNorm: 637980 1 Tablet(s) PO daily by Dr. Jade 05/30/2018 12/25/2018 Ac tive metformin ER 500 mg tablet,extended release 24hr RxNorm: 6037932 Tablet(s) TAKE ONE TABLET BY MOUTH TWICE DAILY 04/30/2018 No Stop Date Active Requip 0.5 mg tablet RxNorm: 010882 1 Tablet(s) PO BID morning and early remi felecia 04/30/2018 08/28/2018 Inactive he just filled a requip 0.25mg rx - he w ill double his meds then call when he needs this filled Requip 0.5 mg tablet RxNorm: 982654 1 Tablet(s) PO BID morning and early remi04/18/2018 04/29/2018 Inactive he just filled a requip 0.25mg rx - he w ill double his meds then call when he needs this filled amlodipine 5 mg tablet RxNorm: 631576 1 Tablet(s) PO daily by Dr. Jade 03/13/2018 05/29/2018 In active Requip 0.25 mg tablet RxNorm: 675874 1 Tablet(s) PO BID morning and early remi03/13/2018 04/17/2018 Inactive triamcinolone aceton andrews 0.1 % topical cream RxNorm: 7947637 1 Application TOP BI D as needed 01/16/2018 05/15/2018 Inactive he would like 3 15 gram tub es triamcinolone aceton andrews 0.1 % topical cream RxNorm: 6178458 1 Application TOP BI D as needed 01/16/2018 01/15/2018 Inactive he would like 3 15 gram tub es amlodipine 10 mg tablet RxNorm: 050780 1 Tablet(s) PO daily by Dr. Jade 01/16/2018 03/12/2018 In active metformin ER 500 mg tablet,extended release 24hr RxNorm: 5902999 TAKE ONE TABLET BY MOUTH TWICE DAILY 12/04/2017 04/29/2018 Inactive metformin ER 500 mg tablet,extended release 24hr RxNorm: 1491755 TAKE ONE TABLET BY MOUTH TWICE DAILY 03/22/2017 12/03/2017 Inactive Tylenol PM Extra Str ength 25 mg-500 mg tablet RxNorm: 6335649 1 Tablet(s) PO QHS 01/17/2017 No Stop Date Active triamcinolone aceton andrews 0.1 % topical cream RxNorm: 7545616 1 Application TOP BI D as needed 01/17/2017 05/16/2017 Inactive metformin ER 500 mg tablet,extended release 24hr RxNorm: 213101 TAKE ONE TABLET BY MOUTH TWICE DAILY 09/27/2016 03/21/2017 Inactive triamcinolone aceton andrews 0.1 % topical cream RxNorm: 4336126 1 Application TOP BI D as needed 07/19/2016 09/16/2016 Inactive metformin ER 500 mg tablet,extended release 24hr RxNorm: 979772 1 Tablet(s) PO BID 08/19/2015 09/26/2016 In active metformin ER 500 mg tablet,extended release 24hr RxNorm: 250977 1 Tablet(s) PO BID 08/14/2015 08/18/2015 In active metformin ER 500 mg tablet,extended release 24hr RxNorm: 292239 1 Tablet(s) PO BID 04/09/2015 08/13/2015 In active triamcinolone aceton andrews 0.1 % topical cream RxNorm: 8518904 1 Application TOP BI D as needed 01/13/2015 07/18/2016 Inactive Flonase Allergy Reli ef 50 mcg/actuation nasal spray,suspension RxNorm: 1 [place] NASAL BID 12/03/2014 01/12/2015 Inactive triamcinolone aceton andrews 0.1 % topical cream RxNorm: 7650050 1 Application TOP BI D as needed 06/04/2014 01/12/2015 Inactive metformin ER 500 mg tablet,extended release 24hr RxNorm: 052821 1 Tablet(s) PO BID 03/05/2014 04/08/2015 In active multivitamin oral RxNorm: 04852 oral No Start Date Active Vitamin B-12 oral RxNorm: 91469 oral No Start Date Active Baby Aspirin 81 mg c hewable tablet RxNorm: 822436 1 Tablet(s) PO daily No Start Date Active Inderal LA 160 mg ca psule,extended release RxNorm: 010242 1 Capsule(s) PO daily No Start Date Active amlodipine 5 mg tablet RxNorm: 919455 1 Tablet(s) PO daily No Start Date 01/15/2018 Inactive multivitamin tablet RxNorm: 1 Tablet(s) PO daily No Start Date 01/16/2017 Inactive tramadol 50 mg tablet RxNorm: 368472 1 Tablet(s) PO TID No Start Date 07/21/2015 Inactive Tylenol PM Extra Str ength 25 mg-500 mg tablet RxNorm: 7053656 2 Tablet(s) PO QHS No Start Date 01/16/2017 Inactive metformin ER 500 mg tablet,extended release 24hr RxNorm: 195972 1 Tablet(s) PO BID No Start Date 03/04/2014 Inactive Methotrexate (Anti-R heumatic) 2.5 mg tablet RxNorm: 821673 8 Tablet(s) PO one ti me per week No Start Date 07/21/2015 Inactive Protonix 40 mg table t,delayed release RxNorm: 195811 1 Tablet(s) PO daily No Start Date 12/02/2014 Inactive Vitamin B-12 1,000 m cg tablet RxNorm: 744749 1 Tablet(s) PO daily No Start Date 01/16/2017 Inactive simvastatin 10 mg ta blet RxNorm: 065627 1 Tablet(s) PO daily No Start Date 05/29/2018 Inactive propranolol ER 120 m g capsule,24 hr,extended release RxNorm: 674752 1 Capsule(s) PO daily No Start Date 07/17/2017 Inactive Medication Administered Medication Codes Instruc tions Start Date Status Kenalog 40 mg/mL suspension for injection RxNorm: 4565191 Milliliter 06/28/2018 No longer Active Immunizations Vaccine [...] Item Item Code Result Date Free T4 Oxu408 FREE T4 0.88 ng/dL 08/16/2018 Comp Metabolic Nwp473 NA 139 mEq/L 08/16/2018 Comp Metabolic Dly216 K 4.3 mEq/L 08/16/2018 Comp Metabolic Xdd061 CL 102 mEq/L 08/16/2018 Comp Metabolic Qes137 CO2 27.0 mEq/L 08/16/2018 Comp Metabolic Zul063 AN ION GAP 14 08/16/2018 Comp Metabolic Rod604 GL UCOSE 144 mg/dL 08/16/2018 Comp Metabolic Yny220 Cr eat 0.8 mg/dL 08/16/2018 Comp Metabolic Rjg269 eG FR 96 ml/min/1.73m2 08/16 Comp Metabolic Ldf684 BUN 10 mg/dL 08/16/2018 Comp Metabolic Cgb832 B/ C Ratio 12.3 Ratio 08/16/2018 Comp Metabolic Ivo493 CA LCIUM 9.2 mg/dL 08/16/2018 Comp Metabolic Ozw051 AL K PHOS 55 U/L 08/16/2018 Comp Metabolic Ojj520 T(SGOT) 13 U/L 08/16/2018 Comp Metabolic Ded408 AL T(SGPT) 17 U/L 08/16/2018 Comp Metabolic Sav732 BI LI T 0.6 mg/dL 08/16/2018 Comp Metabolic Kxq533 AL BUMIN 3.9 g/dL 08/16/2018 Comp Metabolic Wpc087 TP RO 6.4 g/dL 08/16/2018 Comp Metabolic Nsz198 GL OB 2.5 g/dL 08/16/2018 Comp Metabolic Avh124 A/ G Ratio 1.6 Ratio 08/16/2018 Comp Metabolic Hkv709 Os mo 279 mOsmo 08/16/2018 %Hba1C Dpa177 % HbA1c 25481-5 6.9 % 08/16/2018 %Hba1C Mvj943 Gluc Ave 151 mg/dL 08/16/2018 Tsh Ord6 [...] 31.1 pg 08/16/2018 Cbc With Differential Ord2 [place]% 7.4 % 08/16/2018 Cbc With Differential Ord2 [...] 3.24 K/ul 08/16/2018 Cbc With Differential Ord2 [place] ABS# 0.8 K/ul 08/16/2018 Cbc With Differential [...] 31.0 pg 01/11/2018 Cbc With Differential Ord2 [place]% 8.8 % 01/11/2018 Cbc With Differential Ord2 [...] 2.90 K/ul 01/11/2018 Cbc With Differential Ord2 [place] ABS# 0.8 K/ul 01/11/2018 Cbc With Differential Ord2 Eos ABS# 0.3 K/ul 01/11/2018 Cbc With Differential Ord2 Baso ABS# 0.1 K/ul 01/11/2018 %Hba1C Icu098 % HbA1c 88451-2 6.0 % 01/11/2018 %Hba1C Iim426 Gluc Ave 126 mg/dL 01/11/2018 Tsh Ord6 TSH (3rd IS) 5.07 uIU/mL 01/11/2018 Lipid Ord30 CHOL 131 mg/dL 01/11/2018 Lipid Ord30 HDL 36.0 mg/dl 01/11/2018 Lipid Ord30 TRIG 59 mg/dL 01/11/2018 Lipid Ord30 LDL 83 mg/dL 01/11/2018 Lipid Ord30 C/HDL 3.6 Ratio 01/11/2018 Free T4 Iui456 FREE T4 1.00 ng/dL 01/11/2018 Comp Metabolic Fru924 NA 141 mEq/L 01/11/2018 Comp Metabolic Sex382 K 4.1 mEq/L 01/11/2018 Comp Metabolic Umw268 CL 104 mEq/L 01/11/2018 Comp Metabolic Zjy333 CO2 30.0 mEq/L 01/11/2018 Comp Metabolic Rba583 AN ION GAP 11 01/11/2018 Comp Metabolic Rje313 GL UCOSE 131 mg/dL 01/11/2018 Comp Metabolic Edy651 Cr eat 0.9 mg/dL 01/11/2018 Comp Metabolic Qbe796 eG FR 86 ml/min/1.73m2 01/11 Comp Metabolic Rqj176 BUN 10 mg/dL 01/11/2018 Comp Metabolic Wvk012 B/ C Ratio 11.2 Ratio 01/11/2018 Comp Metabolic Hnp177 CA LCIUM 9.1 mg/dL 01/11/2018 Comp Metabolic Scd820 AL K PHOS 49 U/L 01/11/2018 Comp Metabolic Qrs165 T(SGOT) 14 U/L 01/11/2018 Comp Metabolic Pey466 AL T(SGPT) 13 U/L 01/11/2018 Comp Metabolic Rlw475 BI LI T 0.6 mg/dL 01/11/2018 Comp Metabolic Sbn647 AL BUMIN 4.0 g/dL 01/11/2018 Comp Metabolic Uvy256 TP RO 6.4 g/dL 01/11/2018 Comp Metabolic Fea181 GL OB 2.4 g/dL 01/11/2018 Comp Metabolic Cbt806 A/ G Ratio 1.6 Ratio 01/11/2018 Comp Metabolic Pkr818 Os mo 282 mOsmo 01/11/2018 %Hba1C Qwo424 % HbA1c 06661-9 6.2 % 07/14/2017 %Hba1C Dow258 Gluc Ave 131 mg/dL 07/14/2017 Cbc With [...] 31.1 pg 07/14/2017 Cbc With Differential Ord2 [place]% 8.5 % 07/14/2017 Cbc With Differential Ord2 [...] 2.76 K/ul 07/14/2017 Cbc With Differential Ord2 [place] ABS# 0.8 K/ul 07/14/2017 Cbc With Differential Ord2 Eos ABS# 0.4 K/ul 07/14/2017 Cbc With Differential Ord2 Baso ABS# 0.0 K/ul 07/14/2017 Free T4 Drr092 FREE T4 0.97 ng/dL 07/14/2017 Tsh Ord6 TSH (3rd IS) 4.46 uIU/mL 07/14/2017 Comp Metabolic Iqh099 NA 140 mEq/L 07/14/2017 Comp Metabolic Iqr843 K 4.2 mEq/L 07/14/2017 Comp Metabolic Anm069 CL 103 mEq/L 07/14/2017 Comp Metabolic Niw668 CO2 29.0 mEq/L 07/14/2017 Comp Metabolic Tcs550 AN ION GAP 12 07/14/2017 Comp Metabolic Dya864 GL UCOSE 127 mg/dL 07/14/2017 Comp Metabolic Vtv504 Cr eat 0.9 mg/dL 07/14/2017 Comp Metabolic Ymu651 eG FR 90 ml/min/1.73m2 07/14 Comp Metabolic Ohc909 BUN 8 mg/dL 07/14/2017 Comp Metabolic Lwp002 B/ C Ratio 9.3 Ratio 07/14/2017 Comp Metabolic Rbu152 CA LCIUM 9.5 mg/dL 07/14/2017 Comp Metabolic Zzv205 AL K PHOS 77 U/L 07/14/2017 Comp Metabolic Jpg934 T(SGOT) 18 U/L 07/14/2017 Comp Metabolic Nne835 AL T(SGPT) 20 U/L 07/14/2017 Comp Metabolic Aon253 BI LI T 0.7 mg/dL 07/14/2017 Comp Metabolic Nvc941 AL BUMIN 4.4 g/dL 07/14/2017 Comp Metabolic Zia565 TP RO 6.9 g/dL 07/14/2017 Comp Metabolic Lnb968 GL OB 2.6 g/dL 07/14/2017 Comp Metabolic Qkx776 A/ G Ratio 1.7 Ratio 07/14/2017 Comp Metabolic Fhb875 Os mo 279 mOsmo 07/14/2017 Free T4 Jhk423 FREE T4 0.97 ng/dL 04/21/2017 Tsh Ord6 TSH (3rd IS) 4.44 uIU/mL 04/21/2017 %Hba1C Cwj408 % HbA1c 28764-8 6.3 % 01/06/2017 %Hba1C Gwx715 Gluc Ave 134 mg/dL 01/06/2017 Cbc With [...] 31.3 pg 01/06/2017 Cbc With Differential Ord2 [place]% 9.2 % 01/06/2017 Cbc With Differential Ord2 [...] 3.60 K/ul 01/06/2017 Cbc With Differential Ord2 [place] ABS# 0.9 K/ul 01/06/2017 Cbc With Differential Ord2 Eos ABS# 0.3 K/ul 01/06/2017 Cbc With Differential Ord2 Baso ABS# 0.0 K/ul 01/06/2017 Lipid Ord30 CHOL 134 mg/dL 01/06/2017 Lipid Ord30 HDL 35.0 mg/dl 01/06/2017 Lipid Ord30 TRIG 111 mg/dL 01/06/2017 Lipid Ord30 LDL 77 mg/dL 01/06/2017 Lipid Ord30 C/HDL 3.8 Ratio 01/06/2017 Comp Metabolic Ayx805 NA 139 mEq/L 01/06/2017 Comp Metabolic Vfn112 K 4.2 mEq/L 01/06/2017 Comp Metabolic Ddj578 CL 103 mEq/L 01/06/2017 Comp Metabolic Msw675 CO2 29.0 mEq/L 01/06/2017 Comp Metabolic Vkj393 AN ION GAP 11 01/06/2017 Comp Metabolic Dty164 GL UCOSE 121 mg/dL 01/06/2017 Comp Metabolic Zov514 Cr eat 0.8 mg/dL 01/06/2017 Comp Metabolic Sga806 eG FR 101 ml/min/1.73m2 12/28 Comp Metabolic Rfc342 BUN 9 mg/dL 01/06/2017 Comp Metabolic Yrq766 B/ C Ratio 11.5 Ratio 01/06/2017 Comp Metabolic Lac904 CA LCIUM 9.3 mg/dL 01/06/2017 Comp Metabolic Mcd493 AL K PHOS 48 U/L 01/06/2017 Comp Metabolic Pbg567 T(SGOT) 15 U/L 01/06/2017 Comp Metabolic Mfc092 AL T(SGPT) 17 U/L 01/06/2017 Comp Metabolic Ato439 BI LI T 0.6 mg/dL 01/06/2017 Comp Metabolic Odb327 AL BUMIN 4.0 g/dL 01/06/2017 Comp Metabolic Oyg495 TP RO 6.4 g/dL 01/06/2017 Comp Metabolic Okv282 GL OB 2.4 g/dL 01/06/2017 Comp Metabolic Lms508 A/ G Ratio 1.7 Ratio 01/06/2017 Comp Metabolic Kfb988 Os mo 277 mOsmo 01/06/2017 Tsh Ord6 [...] 30.9 pg 07/14/2016 Cbc With Differential Ord2 [place]% 8.4 % 07/14/2016 Cbc With Differential Ord2 [...] 2.34 K/ul 07/14/2016 Cbc With Differential Ord2 [place] ABS# 0.7 K/ul 07/14/2016 Cbc With Differential Ord2 Eos ABS# 0.4 K/ul 07/14/2016 Cbc With Differential Ord2 Baso ABS# 0.1 K/ul 07/14/2016 Comp Metabolic Gtb552 NA 139 mEq/L 07/14/2016 Comp Metabolic Jgi852 K 4.4 mEq/L 07/14/2016 Comp Metabolic Pmy641 CL 103 mEq/L 07/14/2016 Comp Metabolic Pth627 CO2 31.0 mEq/L 07/14/2016 Comp Metabolic Fwz992 AN ION GAP 9 07/14/2016 Comp Metabolic Zby203 GL UCOSE 109 mg/dL 07/14/2016 Comp Metabolic Xdy758 Cr eat 0.9 mg/dL 07/14/2016 Comp Metabolic Gky971 eG FR 88 ml/min/1.73m2 07/14 Comp Metabolic Nbi510 BUN 12 mg/dL 07/14/2016 Comp Metabolic Cmu376 B/ C Ratio 13.6 Ratio 07/14/2016 Comp Metabolic Vsr327 CA LCIUM 8.9 mg/dL 07/14/2016 Comp Metabolic Pix493 AL K PHOS 42 U/L 07/14/2016 Comp Metabolic Smd419 T(SGOT) 14 U/L 07/14/2016 Comp Metabolic Ahh140 AL T(SGPT) 13 U/L 07/14/2016 Comp Metabolic Pxh947 BI LI T 0.6 mg/dL 07/14/2016 Comp Metabolic Nvq130 AL BUMIN 3.8 g/dL 07/14/2016 Comp Metabolic Sdj833 TP RO 6.2 g/dL 07/14/2016 Comp Metabolic Vil988 GL OB 2.4 g/dL 07/14/2016 Comp Metabolic Hst280 A/ G Ratio 1.6 Ratio 07/14/2016 Comp Metabolic Wbh050 Os mo 278 mOsmo 07/14/2016 %Hba1C Pjp329 % HbA1c 13672-6 5.8 % 07/14/2016 %Hba1C Zgj602 Gluc Ave 120 mg/dL 07/14/2016 Cbc With [...] 31.3 pg 01/15/2016 Cbc With Differential Ord2 [place]% 8.4 % 01/15/2016 Cbc With Differential Ord2 [...] 2.53 K/ul 01/15/2016 Cbc With Differential Ord2 [place] ABS# 0.8 K/ul 01/15/2016 Cbc With Differential Ord2 Eos ABS# 0.5 K/ul 01/15/2016 Cbc With Differential Ord2 Baso ABS# 0.1 K/ul 01/15/2016 Lipid Ord30 CHOL 119 mg/dL 01/15/2016 Lipid Ord30 HDL 32.0 mg/dl 01/15/2016 Lipid Ord30 TRIG 120 mg/dL 01/15/2016 Lipid Ord30 LDL 63 mg/dL 01/15/2016 Lipid Ord30 C/HDL 3.7 Ratio 01/15/2016 %Hba1C Xhi298 % HbA1c 39002-6 5.9 % 01/15/2016 %Hba1C Kno611 Gluc Ave 123 mg/dL 01/15/2016 Tsh Ord6 hTSH II 2.98 uIU/mL 01/15/2016 Comp Metabolic Iej930 NA 137 mEq/L 01/15/2016 Comp Metabolic Ppj797 K 3.9 mEq/L 01/15/2016 Comp Metabolic Xdn221 CL 104 mEq/L 01/15/2016 Comp Metabolic Phx587 CO2 26.0 mEq/L 01/15/2016 Comp Metabolic Ivp166 AN ION GAP 11 01/15/2016 Comp Metabolic Cfp311 GL UCOSE 113 mg/dL 01/15/2016 Comp Metabolic Ozv043 Cr eat 0.8 mg/dL 01/15/2016 Comp Metabolic Bly908 eG FR 101 ml/min/1.73m2 12/28 Comp Metabolic Cuz695 BUN 10 mg/dL 01/15/2016 Comp Metabolic Swu584 B/ C Ratio 12.8 Ratio 01/15/2016 Comp Metabolic Hhr368 CA LCIUM 9.1 mg/dL 01/15/2016 Comp Metabolic Igx211 AL K PHOS 51 U/L 01/15/2016 Comp Metabolic Dja101 T(SGOT) 16 U/L 01/15/2016 Comp Metabolic Agv139 AL T(SGPT) 17 U/L 01/15/2016 Comp Metabolic Piy622 BI LI T 0.7 mg/dL 01/15/2016 Comp Metabolic Zdm612 AL BUMIN 3.9 g/dL 01/15/2016 Comp Metabolic Sne929 TP RO 6.4 g/dL 01/15/2016 Comp Metabolic Aow285 GL OB 2.5 g/dL 01/15/2016 Comp Metabolic Pvb018 A/ G Ratio 1.5 Ratio 01/15/2016 Comp Metabolic Ofl384 Os mo 274 mOsmo 01/15/2016 Cbc With [...] 31.2 pg 07/10/2015 Cbc With Differential Ord2 [place]% 8.5 % 07/10/2015 Cbc With Differential Ord2 [...] 2.86 K/ul 07/10/2015 Cbc With Differential Ord2 [place] ABS# 0.7 K/ul 07/10/2015 Cbc With Differential Ord2 Eos ABS# 0.3 K/ul 07/10/2015 Cbc With Differential Ord2 Baso ABS# 0.0 K/ul 07/10/2015 Cbc With Differential Ord2 New Analyzer Notice Please note new ref ranges s tarting 03-11-2015 due to implemntation of new five part differential hematolgy analyzer. 07/10/2015 Tsh Ord6 hTSH II 3.50 uIU/mL 07/10/2015 Comp Metabolic Gka051 NA 138 mEq/L 07/10/2015 Comp Metabolic Asu806 K 4.5 mEq/L 07/10/2015 Comp Metabolic Cyc977 CL 102 mEq/L 07/10/2015 Comp Metabolic Hhn385 CO2 29.0 mEq/L 07/10/2015 Comp Metabolic Fmn007 AN ION GAP 12 07/10/2015 Comp Metabolic Xjy007 GL UCOSE 105 mg/dL 07/10/2015 Comp Metabolic Dxw938 Cr eat 0.9 mg/dL 07/10/2015 Comp Metabolic Twa049 eG FR 85 ml/min/1.73m2 07/09 Comp Metabolic Prs237 BUN 12 mg/dL 07/10/2015 Comp Metabolic Ucy087 B/ C Ratio 13.2 Ratio 07/10/2015 Comp Metabolic Iym069 CA LCIUM 9.1 mg/dL 07/10/2015 Comp Metabolic Yqh158 AL K PHOS 43 U/L 07/10/2015 Comp Metabolic Rku412 T(SGOT) 21 U/L 07/10/2015 Comp Metabolic Qng090 AL T(SGPT) 21 U/L 07/10/2015 Comp Metabolic Ram531 BI LI T 0.5 mg/dL 07/10/2015 Comp Metabolic Ojy925 AL BUMIN 4.0 g/dL 07/10/2015 Comp Metabolic Zte791 TP RO 6.4 g/dL 07/10/2015 Comp Metabolic Usm172 GL OB 2.4 g/dL 07/10/2015 Comp Metabolic Qks784 A/ G Ratio 1.6 Ratio 07/10/2015 Comp Metabolic Mne028 Os mo 276 mOsmo 07/10/2015 Lipid Ord30 CHOL 121 mg/dL 07/10/2015 Lipid Ord30 HDL 33.0 mg/dl 07/10/2015 Lipid Ord30 TRIG 99 mg/dL 07/10/2015 Lipid Ord30 LDL 68 mg/dL 07/10/2015 Lipid Ord30 C/HDL 3.7 Ratio 07/10/2015 %Hba1C Muf384 % HbA1c 30473-4 6.0 % 07/10/2015 %Hba1C Uam428 Gluc Ave 126 mg/dL 07/10/2015 Comp Metabolic Psz084 NA 136 mEq/L 12/04/2014 Comp Metabolic Alm903 K 4.1 mEq/L 12/04/2014 Comp Metabolic Mdj611 CL 103 mEq/L 12/04/2014 Comp Metabolic Ehk447 CO2 28.0 mEq/L 12/04/2014 Comp Metabolic Pir320 AN ION GAP 9 12/04/2014 Comp Metabolic Cdc805 GL UCOSE 118 mg/dL 12/04/2014 Comp Metabolic Yqk334 Cr eat 0.9 mg/dL 12/04/2014 Comp Metabolic Vwm645 eG FR 88 ml/min/1.73m2 12/04 Comp Metabolic Kyg021 BUN 10 mg/dL 12/04/2014 Comp Metabolic Yxh705 B/ C Ratio 11.4 Ratio 12/04/2014 Comp Metabolic Wbj642 CA LCIUM 9.4 mg/dL 12/04/2014 Comp Metabolic Dmt223 AL K PHOS 50 U/L 12/04/2014 Comp Metabolic Vgi723 T(SGOT) 17 U/L 12/04/2014 Comp Metabolic Skb695 AL T(SGPT) 17 U/L 12/04/2014 Comp Metabolic Pgt413 BI LI T 0.7 mg/dL 12/04/2014 Comp Metabolic Zic578 AL BUMIN 4.1 g/dL 12/04/2014 Comp Metabolic Fks067 TP RO 6.4 g/dL 12/04/2014 Comp Metabolic Ouy148 GL OB 2.3 g/dL 12/04/2014 Comp Metabolic Zti725 A/ G Ratio 1.8 Ratio 12/04/2014 Comp Metabolic Ghu726 Os mo 272 mOsmo 12/04/2014 Tsh Ord6 hTSH II 4.00 uIU/mL 12/04/2014 %Hba1C Doj284 % HbA1c 66988-2 6.2 % 12/04/2014 %Hba1C Yxe390 Gluc Ave 131 mg/dL 12/04/2014 Cbc With [...] - General 1995 Ears/Nose/Throat oral cavity/pharynx/larynx Overall: hypopharynx benign 08/29/2018 [...] face 08/29/2018 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 treated with 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 today Full [...] dentition 04/18/2018 None Full Exam - General 1994 [...] Procedure Codes Date DESTRUCT PREMALG LESION CPT-4: 50446 08/29/2018 DESTRUCT PREMALG LES 2-14 CPT-4: 82379 08/29/2018 THER/PROPH/DIAG INJ SC/IM CPT-4: 46692 06/28/2018 TRIAMCINOLONE ACET I [place] NOS CPT-4: J3301 06/28/2018 DESTRUCT PREMALG LESION CPT-4: 05/30/2018 DESTRUCT PREMALG LES 2-14 CPT-4: 05/30/2018 DESTRUCT PREMALG LES 2-14 CPT-4: 01/16/2018 DESTRUCT PREMALG LESION CPT-4: 01/16/2018 DESTRUCT PREMALG LESION CPT-4: 07/19/2016 DESTRUCT PREMALG LES 2-14 CPT-4: 07/19/2016 DESTRUCT PREMALG LESION CPT-4: 01/13/2015 DESTRUCT PREMALG LES 2-14 CPT-4: 01/13/2015 Vital Signs Date Vital 08/29/2018 Blood Pressure 1: 136/62 Code: 8480-6 BMI: 33.3 Code: 23088-5 Heart Rate 1: 58 bpm Height: 5'11" SpO2: 98% Weight: 239 lbs 06/28/2018 BMI: 32.4 Code: 53626-6 Heart Rate 1: 70 bpm Height: 5'11" SpO2: 96% Weight: 232 lbs 05/30/2018 Blood Pressure 1: 140/68 Code: 8480-6 BMI: 32.9 Code: 23099-9 Heart Rate 1: 54 bpm Height: 5'11" SpO2: 96% Weight: 236 lbs 04/18/2018 Blood Pressure 1: 140/72 Code: 8480-6 BMI: 32.8 Code: 97527-5 Heart Rate 1: 52 bpm Height: 5'11" SpO2: 97% Weight: 235 lbs 03/13/2018 Blood Pressure 1: 150/80 Code: 8480-6 BMI: 32.5 Code: 62838-5 Heart Rate 1: 77 bpm Height: 5'11" SpO2: 97% Weight: 233 lbs 01/16/2018 Blood Pressure 1: 138/72 Code: 8480-6 BMI: 32.5 Code: 62236-0 Heart Rate 1: 54 bpm Height: 5'11" SpO2: 95% Weight: 233 lbs 07/18/2017 Blood Pressure 1: 138/68 Code: 8480-6 BMI: 32.2 Code: 52110-9 Heart Rate 1: 59 bpm Height: 5'11" SpO2: 96% Weight: 231 lbs 01/17/2017 Blood Pressure 1: 140/78 Code: 8480-6 BMI: 32.5 Code: 33544-0 Heart Rate 1: 52 bpm Height: 5'11" SpO2: 98% Weight: 233 lbs 07/19/2016 Blood Pressure 1: 140/74 Code: 8480-6 BMI: 32.4 Code: 55747-2 Heart Rate 1: 57 bpm Height: 5'11" SpO2: 95% Weight: 232 lbs 01/19/2016 Blood Pressure 1: 132/60 Code: 8480-6 BMI: 32.9 Code: 98513-0 Heart Rate 1: 58 bpm Height: 5'11" SpO2: 96% Weight: 236 lbs 07/22/2015 Blood Pressure 1: 158/78 Code: 8480-6 Blood Pressure 1: 150/78 Code: 8480-6 BMI: 31.9 Code: 55608-1 Heart Rate 1: 55 bpm Height: 5'11" SpO2: 98% Weight: 229 lbs 01/13/2015 Blood Pressure 1: 146/74 Code: 8480-6 BMI: 32.2 Code: 24498-2 Heart Rate 1: 63 bpm Height: 5'11" SpO2: 97% Weight: 231 lbs 12/03/2014 Blood Pressure 1: 142/78 Code: 8480-6 Blood Pressure 1: 128/75 Code: 8480-6 BMI: 32.4 Code: 42417-2 Heart Rate 1: 57 bpm Height: 5'11" SpO2: 95% Weight: 232 lbs 06/04/2014 Blood Pressure 1: 138/78 Code: 8480-6 BMI: 32.5 Code: 88306-7 Heart Rate 1: 56 bpm Height: 5'11" SpO2: 96% Weight: 233 lbs 12/10/2013 Blood Pressure 1: 122/78 Code: 8480-6 BMI: 32.2 Code: 77634-8 Heart Rate 1: 76 bpm Height: 5'11" [...] ies lightheadedness 03/13/2018 None 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 P ATIENT, LEVEL IV Diagnosis: Essential (primary) hypertension[ICD10: I10] Diagnosis: Type 2 diabetes mellitus without complications[ICD10: E11.9] Diagnosis: Essential tremor[ICD10: G25.0] Diagnosis: Actinic keratosis[ICD10: L57.0] Renita Roberson MD, [facility] CPT-4: 82269 08/29/2018 [id number] EST. PATIENT, LEVEL IV Diagnosis: Other acute sinusitis[ICD10: J01.80] Diagnosis: Other allergic rhinitis[ICD10: J30.89] Marielle Roberson MD, [facility] CPT-4: 92834 06/28/2018 ([id number]) [id number] EST. P ATIENT, LEVEL IV Diagnosis: Essential (primary) hypertension[ICD10: I10] Diagnosis: Essential tremor[ICD10: G25.0] Diagnosis: Mixed hyperlipidemia[ICD10: E78.2] Diagnosis: Myalgia, other site[ICD10: M79.18] Renita Roberson MD, [facility] CPT- 4: 72984 05/30/2018 ([id number]) 43736 EST. P ATIENT, LEVEL III Diagnosis: Essential tremor[ICD10: G25.0] Renita Roberson MD, [facility] CPT-4: 63038 04/18/2018 ([id number]) 69725 EST. P ATIENT, LEVEL IV Diagnosis: Essential tremor[ICD10: G25.0] Diagnosis: Essential (primary) hypertension[ICD10: I10] Renita Roberson MD, C CPT-4: 61697 03/13/2018 ([id number]) 64927 EST. P ATIENT, LEVEL IV Diagnosis: Type 2 diabetes mellitus without complications[ICD10: E11.9] Diagnosis: Essential (primary) hypertension[ICD10: I10] Diagnosis: Actinic keratosis[ICD10: L57.0] Diagnosis: Lumbago with sciatica, right side[ICD10: M54.41] Renita Roberson MD, C CPT-4: 41619 01/16/2018 ([id number]) 62892 EST. P ATIENT, LEVEL IV Diagnosis: Essential (primary) hypertension[ICD10: I10] Diagnosis: Type 2 diabetes mellitus without complications[ICD10: E11.9] Diagnosis: Actinic keratosis[ICD10: L57.0] Diagnosis: Mixed hyperlipidemia[ICD10: E78.2] Irlanda Roberson MD, [facility] CPT-4: 77590 07/18/2017 ([id number]) 79064 EST. P ATIENT, LEVEL IV Diagnosis: Essential (primary) hypertension[ICD10: I10] Diagnosis: Type 2 diabetes mellitus without complications[ICD10: E11.9] Diagnosis: Hypothyroidism, unspecified[ICD10: E03.9] Diagnosis: Actinic keratosis[ICD10: L57.0] Irlanda Roberson MD, [facility] CPT- 4: 96791 01/17/2017 ([id number]) 39571 EST. P ATIENT, LEVEL III Diagnosis: Essential (primary) hypertension[ICD10: I10] Diagnosis: Mixed hyperlipidemia[ICD10: E78.2] Diagnosis: Type 2 diabetes mellitus without complications[ICD10: E11.9] Diagnosis: Actinic keratosis[ICD10: L57.0] Irlanda Roberson MD, [facility] CPT- 4: 43880 07/19/2016 ([id number]) 91189 EST. P ATIENT, LEVEL IV Diagnosis: Essential (primary) hypertension[ICD10: I10] Diagnosis: Type 2 diabetes mellitus without complications[ICD10: E11.9] Diagnosis: Mixed hyperlipidemia[ICD10: E78.2] Renita Roberson MD, [facility] CPT- 4: 34342 01/19/2016 [id number] EST. PATIENT, LEVEL IV Diagnosis: Essential (primary) hypertension[ICD10: I10] Diagnosis: Type 2 diabetes mellitus without complications[ICD10: E11.9] Marielle Roberson MD, [facility] CPT-4: 41028 07/22/2015 ([id number]) [id number] EST. P ATIENT, LEVEL III Diagnosis: Essential (primary) hypertension[ICD10: I10] Diagnosis: Actinic keratosis[ICD10: L57.0] Diagnosis: Personal history of diseases of the skin and subcutaneous tissue[ICD10: Z87.2] Renita Roberson MD, [facility] CPT-4: 77801 01/13/2015 ([id number]) 62260 EST. P ATIENT, LEVEL IV Diagnosis: Essential (primary) hypertension[ICD10: I10] Diagnosis: Other abnormal glucose[ICD10: R73.09] Renita Roberson MD, [facility] CPT-4: 75969 12/03/2014 ([id number]) 61810 EST. P ATIENT, LEVEL IV Diagnosis: ESSENTIAL HYPERTENSION[ICD9: 401.9] Diagnosis: Benign paroxysmal positional vertigo[ICD9: 386.11] Renita Roberson MD, LL C CPT-4: 04649 06/04/2014 ([id number]) OFFICE VISI , NEW - LEVEL 4 Diagnosis: ESSENTIAL HYPERTENSION[ICD9: 401.9] Diagnosis: Wrist pain, chronic[ICD9: 719.43] Diagnosis: Benign paroxysmal positional vertigo[ICD9: 386.11] Renita Roberson MD, [facility] C CPT-4: 15284 12/10/2013 Plan of Care Planned Activity Notes [...] letter for Ravinder to take to his Manager Provider Relations. Diabetes Mellitus - controlled - per recent [...] - treated with cryotherapy x 3 on scientologist and cheek 08/29/2018 Patient Education: Patient Medication Summary Completed 08/29/2018 Patient Education: Diabetes Completed 08/29/2018 Patient Education: Patient Medication Summary Completed 08/14/2018 Care Plan: Comp Metabolic Pending 08/14/2018 Care Plan: Cbc With Differential Pending 08/14/2018 Care Plan: Tsh Pending 08/14/2018 Care Plan: Free T4 Pending 08/14/2018 Care Plan: %Hba1C FABI C : 16643-1 Pending 08/14/2018 Appointment: Renita Roberson WPtel: [address] [place], [place] [phone] (15 min) Moderate 07/17/2018 Visit Plan: Sinusitis [...] nasal steroid allergy spray. 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 Call if not improved after thorough healing. 05/30/2018 Appointment: [facility]erson [facility] [phone] [facility] (15 min) Moderate 05/30/2018 Patient Education: Patient Medication Summary Completed 05/30/2018 Patient Education: Cholesterol Management Completed 05/30/2018 Visit Plan: Essential tremor - incr ease the requip to 0.25mg - 1.5 pills twice daily x 4 days then increase to 0.5mg (two pills) twice daily - I sent the new RX to the [facility] - you can call the pharmacy when you are ready to picking tech this higher dose. 04/18/2018 Appointment: Renita Roberson WPtel: [facility] (15 min) Moderate 04/18/2018 Patient Education: Patient [...] at home. 03/13/2018 Appointment: Renita Roberson [facility]Ptel[facility] [phone] [facility] (15 min) Moderate 03/13/2018 Patient Education: Patient [...] not improved after thorough healing. 01/16/2018 Appointment: Renita Roberson WPtel: [phone] [facility] (15 min) Moderate 01/16/2018 Patient Education: Patient [...] the office 07/18/2017 Appointment: Irlanda Huerta WPtel[phone] (30 min) [facility] 07/18/2017 Patient Education: Patient Medication Summary Completed [...] the office 01/17/2017 Appointment: Irlanda Huerta WPtel: [facility]5 [facility] [place] [address] (30 min) Complex 01/17/2017 Patient Education: Patient [...] and nose 07/19/2016 Appointment: Irlanda Huerta WPtel: [address] [place], [place] [phone] [place] [address] (30 min) Complex 07/19/2016 Patient Education: Patient Medication Summary Completed 07/19/2016 Patient Education: Obesity Completed 07/19/2016 Patient Education: Patient Medication Summary Completed 07/14/2016 Appointment: Marielle Brush WPtel: [facility]5 [facility] [facility] - Annual Wellness Visit 01/28/2016 Appointment: Irlanda Huerta WPtel: [address] [place], [place] [phone] [facility] - Annual Wellness Visit 01/26/2016 Visit Plan: [...] me dications. 01/19/2016 Appointment: Renita Roberson [facility]Ptel: [phone] [facility] (15 min) Moderate 01/19/2016 Patient Education: Patient [...] right scalp 01/13/2015 Appointment: Renita Roberson [facility]Ptel[facility] [phone] [facility] (15 min) Moderate 01/13/2015 Patient Education: Patient [...] with metformin 12/03/2014 Appointment: Renita Roberson WPtel: [facility]5 [facility] Follow up 12/03/2014 Patient Education: Patient Medication [...] instructions/medication interventions. 06/04/2014 Appointment: Renita Roberson WPtel: [facility]9 [facility] Follow up 06/04/2014 Patient Education: Patient Medication Summary Completed 06/04/2014 Patient Education: Hypertension Completed 06/04/2014 Care Plan: Referral Order SNOMED-CT : [id number] Ordered 06/04/2014 Visit Plan: Hypertension - well [...] Dr. Starr. 12/10/2013 Appointment: Renita Roberson WPtel: [phone] [facility] bringing in new pt paperwork New Patient 12/10/2013 Patient Education: Patient Medication Summary Completed 12/10/2013 Patient Education: Hypertension Completed 12/10/2013 Referral: Don Rodriguez WPtel: [phone] [facility] Referral Appointment Requested Instructions Comment increase the requip to 0.25mg - 1.5 pills twice daily x 4 days then increase to 0.5mg (two pills) twice daily - I sent the new RX to the [facility] - you can call the pharmacy when you are ready to picking tech this higher dose. . Essential tremor - increase the requip to 0.25mg - 1.5 pills twice daily x 4 days then increase to 0.5mg (two pills) twice daily - I sent the new RX to [facility] - you can call the pharmacy when you are ready to picking tech this higher dose. . Diabetes Mellitus - [...] medication. I have written a letter for Castellon to take to his Manager Provider Relations. Diabetes Mellitus - controlled - per recent [...] - treated with cryotherapy x 3 on scientologist and cheek stop the simvastatin - - this medication interacts with the AMLODIPINE the ankle swelling is due to the Amlodipine - it causes dilation of blood vessels. start on ATORVASTATIN - the new cholesterol medication - in TWO WEEKS picking tech Qunol - coenzyme q10 - it is [...] new cholesterol medication - in TWO WEEKS picking tech Qunol - coenzyme q10 - it is [...]
--- OUTSIDE RECORDS SUMMARY | 2019-06-22 15:17 | XMS REPORT | CCD ---
Author Author Ravinder Roberson Organization Renita Roberson MD, [facility] Address [address] [place] [address] Phone Care Team Providers Care Claims Representative Name Role Phone PP Unavailable CCM Unavailable Summary Purpose Interface Exchange Insurance Providers Payer name Policy type / Coverage type Covered alliance party ID Effective Begin Date Effective End Date WPS Medicare Part B Medicare Part B [id number] Unknown [facility] icare Part B [id number] Un known Family history Father Diagnosis Age At Onset Hypertension Unknown Brother Diagnosis Age At Onset Coronary Artery Disease Unknown Cancer Unknown Hypertension Unknown Mother Diagnosis Age At Onset Hypertension Unknown Social History Social History Element Codes Description Effective Dates Marital status Unknown M arried 12/10/2013 Number of children Unknown 2 12/10/2013 Employment Unknown Retir ed 12/10/[address]: 1512722 Former smoker quit 1980 12/10/[address]: 920659498 Never drinks alcohol 12/10/2013 Allergies, Adverse Reactions, [...] Codes Condition Status Onset Date Resolved Date Essential (primary) hypertension ICD-9: 401.9 ICD-10: I10 Active 12/10/2013 Unknown Hypothyroidism, unsp ecified ICD-9: 244.9 ICD-10: E03.9 Active 01/17/2017 Unknown Type 2 diabetes glenn itus without complications ICD-9: 250.00 ICD-10: E11.9 Active 01/18/2016 Unknown Other acute sinusitis ICD-9: 461.8 ICD-10: J01.80 Active 06/28/2018 Unknown Other allergic rhinitis ICD-9: 477.8 ICD-10: J30.89 Active 06/28/2018 Unknown Actinic keratosis ICD-9: 702.0 ICD-10: L57.0 Active 01/12/2015 Unknown Essential (primary) hypertension ICD-9: 401.1 ICD-10: I10 Active 05/30/2018 Unknown Essential tremor ICD-9: 333.1 ICD-10: G25.0 Active 03/13/2018 Unknown Mixed hyperlipidemia ICD-9: 272.2 ICD-10: E78.2 [...] Condition Codes Effectiv e Dates Condition Status Essential (primary) hypertension ICD-9: 401.9 ICD-10: I10 12/10/2013 Active Hypothyroidism, unsp ecified ICD-9: 244.9 ICD-10: E03.9 01/17/2017 Active Type 2 diabetes glenn itus without complications ICD-9: 250.00 ICD-10: E11.9 01/18/2016 Active Other acute sinusitis ICD-9: 461.8 ICD-10: J01.80 06/28/2018 Active Other allergic rhinitis ICD-9: 477.8 ICD-10: J30.89 06/28/2018 Active Actinic keratosis ICD-9: 702.0 ICD-10: L57.0 01/12/2015 Active Essential (primary) hypertension ICD-9: 401.1 ICD-10: I10 05/30/2018 Active Essential tremor ICD-9: 333.1 ICD-10: G25.0 03/13/2018 Active Mixed hyperlipidemia ICD-9: 272.2 ICD-10: E78.2 [...] 40 mg/mL darrian pension for injection RxNorm: 4002228 Milliliter(s) Inj 06/28/2018 06/28/2018 In active Keflex 500 mg capsule RxNorm: 682885 1 Capsule(s) PO TID 06/28/2018 07/07/2018 Inactive atorvastatin 10 mg t ablet RxNorm: 947464 1 Tablet(s) PO QHS 05/30/2018 05/24/2019 Active amlodipine 10 mg tablet RxNorm: 870200 1 Tablet(s) PO daily by Dr. Jade 05/30/2018 12/25/2018 Ac tive Requip 0.5 mg tablet RxNorm: 997489 1 Tablet(s) PO BID morning and early remi felecia 04/30/2018 11/25/2018 Ac tive he just filled a requip 0.25mg rx - he w ill double his meds then call when he needs this filled metformin ER 500 mg tablet,extended release 24hr RxNorm: 8295878 Tablet(s) TAKE ONE TABLET BY MOUTH TWICE DAILY 04/30/2018 No Stop Date Active Requip 0.5 mg tablet RxNorm: 740124 1 Tablet(s) PO BID morning and early remi felecia 04/18/2018 04/29/2018 Inactive he just filled a requip 0.25mg rx - he w ill double his meds then call when he needs this filled amlodipine 5 mg tablet RxNorm: 310649 1 Tablet(s) PO daily by Dr. Jade 03/13/2018 05/29/2018 In active Requip 0.25 mg tablet RxNorm: 769762 1 Tablet(s) PO BID morning and early remi felecia 03/13/2018 04/17/2018 Inactive triamcinolone aceton andrews 0.1 % topical cream RxNorm: 4284731 1 Application TOP BI D as needed 01/16/2018 05/15/2018 Inactive he would like 3 15 gram tub es triamcinolone aceton andrews 0.1 % topical cream RxNorm: 3743344 1 Application TOP BI D as needed 01/16/2018 01/15/2018 Inactive he would like 3 15 gram tub es amlodipine 10 mg tablet RxNorm: 339149 1 Tablet(s) PO daily by Dr. Jade 01/16/2018 03/12/2018 In active metformin ER 500 mg tablet,extended release 24hr RxNorm: 7652319 TAKE ONE TABLET BY MOUTH TWICE DAILY 12/04/2017 04/29/2018 Inactive metformin ER 500 mg tablet,extended release 24hr RxNorm: 9398599 TAKE ONE TABLET BY MOUTH TWICE DAILY 03/22/2017 12/03/2017 Inactive Tylenol PM Extra Str ength 25 mg-500 mg tablet RxNorm: 4896135 1 Tablet(s) PO QHS 01/17/2017 No Stop Date Active triamcinolone aceton andrews 0.1 % topical cream RxNorm: 4914958 1 Application TOP BI D as needed 01/17/2017 05/16/2017 Inactive metformin ER 500 mg tablet,extended release 24hr RxNorm: 928631 TAKE ONE TABLET BY MOUTH TWICE DAILY 09/27/2016 03/21/2017 Inactive triamcinolone aceton andrews 0.1 % topical cream RxNorm: 7852775 1 Application TOP BI D as needed 07/19/2016 09/16/2016 Inactive metformin ER 500 mg tablet,extended release 24hr RxNorm: 997880 1 Tablet(s) PO BID 08/19/2015 09/26/2016 In active metformin ER 500 mg tablet,extended release 24hr RxNorm: 906020 1 Tablet(s) PO BID 08/14/2015 08/18/2015 In active metformin ER 500 mg tablet,extended release 24hr RxNorm: 871358 1 Tablet(s) PO BID 04/09/2015 08/13/2015 In active triamcinolone aceton andrews 0.1 % topical cream RxNorm: 9794916 1 Application TOP BI D as needed 01/13/2015 07/18/2016 Inactive Flonase Allergy Reli ef 50 mcg/actuation nasal spray,suspension RxNorm: 1 Rohwer NASAL BID 12/03/2014 01/12/2015 Inactive triamcinolone aceton andrwes 0.1 % topical cream RxNorm: 4704055 1 Application TOP BI D as needed 06/04/2014 01/12/2015 Inactive metformin ER 500 mg tablet,extended release 24hr RxNorm: 145164 1 Tablet(s) PO BID 03/05/2014 04/08/2015 In active multivitamin oral RxNorm: 71612 oral No Start Date Active Vitamin B-12 oral RxNorm: 52902 oral No Start Date Active Baby Aspirin 81 mg c hewable tablet RxNorm: 359126 1 Tablet(s) PO daily No Start Date Active Inderal LA 160 mg ca psule,extended release RxNorm: 428095 1 Capsule(s) PO daily No Start Date Active amlodipine 5 mg tablet RxNorm: 607978 1 Tablet(s) PO daily No Start Date 01/15/2018 Inactive multivitamin tablet RxNorm: 1 Tablet(s) PO daily No Start Date 01/16/2017 Inactive tramadol 50 mg tablet RxNorm: 768638 1 Tablet(s) PO TID No Start Date 07/21/2015 Inactive Tylenol PM Extra Str ength 25 mg-500 mg tablet RxNorm: 0069137 2 Tablet(s) PO QHS No Start Date 01/16/2017 Inactive metformin ER 500 mg tablet,extended release 24hr RxNorm: 215154 1 Tablet(s) PO BID No Start Date 03/04/2014 Inactive Methotrexate (Anti-R heumatic) 2.5 mg tablet RxNorm: 067033 8 Tablet(s) PO one ti me per week No Start Date 07/21/2015 Inactive Protonix 40 mg table t,delayed release RxNorm: 100294 1 Tablet(s) PO daily No Start Date 12/02/2014 Inactive Vitamin B-12 1,000 m cg tablet RxNorm: 559231 1 Tablet(s) PO daily No Start Date 01/16/2017 Inactive simvastatin 10 mg ta blet RxNorm: 457963 1 Tablet(s) PO daily No Start Date 05/29/2018 Inactive propranolol ER 120 m g capsule,24 hr,extended release RxNorm: 124861 1 Capsule(s) PO daily No Start Date 07/17/2017 Inactive Medication Administered Medication Codes Instruc tions Start Date Status Kenalog 40 mg/mL suspension for injection RxNorm: 2075860 Milliliter 06/28/2018 No longer Active Immunizations Vaccine Codes Date Status Influenza CVX: 141 11/27 completed Assessments Condition Codes Effectiv e Dates Hypothyroidism, unspecified ICD-10: E03.9 ICD-9: 244.9 08/14/2018 Type 2 diabetes mellitus without complications ICD-10: E11.9 ICD-9: 250.00 08/14/2018 Essential (primary) hypertension ICD -10: I10 ICD-9: 401.9 08/14/2018 Other allergic rhinitis ICD-10: J30. 89 ICD-9: 477.8 06/28/2018 Other acute sinusitis ICD-10: J01.80 ICD-9: 461.8 06/28/2018 Actinic keratosis ICD-10: L57.0 ICD-9: 702.0 05/30/2018 Myalgia, other site ICD-10: M79.18 ICD-9: 729.1 05/30/2018 Mixed hyperlipidemia ICD-10: E78.2 ICD-9: 272.2 05/30/2018 Essential (primary) hypertension ICD -10: I10 ICD-9: 401.1 05/30/2018 Essential tremor ICD-10: G25.0 ICD-9: 333.1 05/30/2018 Lumbago with sciatica, right side IC D-10: M54.41 ICD-9: 724.3 01/16/2018 Personal history of diseases of the skin and subcutaneous tissue ICD-10: Z87.2 ICD-9: V13.3 01/13/2015 Other abnormal glucose ICD-10: R73.0 9 ICD-9: 790.29 12/03/2014 Benign paroxysmal positional vertigo ICD-9: 386.11 06/04/2014 ESSENTIAL HYPERTENSION ICD-9: 401.9 06/04/2014 Wrist pain, chronic ICD-9: 719.43 12/10/2013 Reason For Visit Reason For Visit Effective Dates Notes cough 06/28/2018 dyskinesia or tremor 05/30/2018 dyskinesia or tremor 04/18/2018 dyskinesia or tremor 03/13/2018 skin lesion 01/16/2018 hypertension 07/18/2017 hypertension 01/17/2017 skin lesion 07/19/2016 skin lesion 01/19/2016 hypertension 07/22/2015 rash 01/13/2015 postnasal drip 12/03/2014 hand pain 06/04/2014 lef t hand pain/tremor- Carpal tunnel hx hand pain 12/10/2013 lef t hand pain/tremor- Carpal tunnel hx Results Observation Observation Code Item Item Code Result Date Cbc With Differential Ord2 WBC 10.89 K/ul [...] 31.1 pg 08/16/2018 Cbc With Differential Ord2 Castro% 7.4 % 08/16/2018 Cbc With Differential Ord2 [...] 3.24 K/ul 08/16/2018 Cbc With Differential Ord2 Castro ABS# 0.8 K/ul 08/16/2018 Cbc With Differential [...] 31.0 pg 01/11/2018 Cbc With Differential Ord2 Castro% 8.8 % 01/11/2018 Cbc With Differential Ord2 [...] 2.90 K/ul 01/11/2018 Cbc With Differential Ord2 Castro ABS# 0.8 K/ul 01/11/2018 Cbc With Differential Ord2 Eos ABS# 0.3 K/ul 01/11/2018 Cbc With Differential Ord2 Baso ABS# 0.1 K/ul 01/11/2018 %Hba1C Czn541 % HbA1c 43236-1 6.0 % 01/11/2018 %Hba1C Kot563 Gluc Ave 126 mg/dL 01/11/2018 Tsh Ord6 TSH (3rd IS) 5.07 uIU/mL 01/11/2018 Lipid Ord30 CHOL 131 mg/dL 01/11/2018 Lipid Ord30 HDL 36.0 mg/dl 01/11/2018 Lipid Ord30 TRIG 59 mg/dL 01/11/2018 Lipid Ord30 LDL 83 mg/dL 01/11/2018 Lipid Ord30 C/HDL 3.6 Ratio 01/11/2018 Free T4 Ozb043 FREE T4 1.00 ng/dL 01/11/2018 Comp Metabolic Ruk418 NA 141 mEq/L 01/11/2018 Comp Metabolic Xip568 K 4.1 mEq/L 01/11/2018 Comp Metabolic Tfw377 CL 104 mEq/L 01/11/2018 Comp Metabolic Hzx625 CO2 30.0 mEq/L 01/11/2018 Comp Metabolic Fsq529 AN ION GAP 11 01/11/2018 Comp Metabolic Nlk768 GL UCOSE 131 mg/dL 01/11/2018 Comp Metabolic Lpg267 Cr eat 0.9 mg/dL 01/11/2018 Comp Metabolic Azv529 eG FR 86 ml/min/1.73m2 01/11 Comp Metabolic Ofk064 BUN 10 mg/dL 01/11/2018 Comp Metabolic Bxt879 B/ C Ratio 11.2 Ratio 01/11/2018 Comp Metabolic Rpk505 CA LCIUM 9.1 mg/dL 01/11/2018 Comp Metabolic Ioi576 AL K PHOS 49 U/L 01/11/2018 Comp Metabolic Omo003 T(SGOT) 14 U/L 01/11/2018 Comp Metabolic Fcz192 AL T(SGPT) 13 U/L 01/11/2018 Comp Metabolic Ghv582 BI LI T 0.6 mg/dL 01/11/2018 Comp Metabolic Acd153 AL BUMIN 4.0 g/dL 01/11/2018 Comp Metabolic Tle778 TP RO 6.4 g/dL 01/11/2018 Comp Metabolic Yso845 GL OB 2.4 g/dL 01/11/2018 Comp Metabolic Gfo317 A/ G Ratio 1.6 Ratio 01/11/2018 Comp Metabolic Yur512 Os mo 282 mOsmo 01/11/2018 %Hba1C Sey263 % HbA1c 56241-8 6.2 % 07/14/2017 %Hba1C Opw171 Gluc Ave 131 mg/dL 07/14/2017 Cbc With [...] 31.1 pg 07/14/2017 Cbc With Differential Ord2 Castro% 8.5 % 07/14/2017 Cbc With Differential Ord2 [...] 2.76 K/ul 07/14/2017 Cbc With Differential Ord2 Castro ABS# 0.8 K/ul 07/14/2017 Cbc With Differential Ord2 Eos ABS# 0.4 K/ul 07/14/2017 Cbc With Differential Ord2 Baso ABS# 0.0 K/ul 07/14/2017 Free T4 Jeb862 FREE T4 0.97 ng/dL 07/14/2017 Tsh Ord6 TSH (3rd IS) 4.46 uIU/mL 07/14/2017 Comp Metabolic Dyi794 NA 140 mEq/L 07/14/2017 Comp Metabolic Zyn956 K 4.2 mEq/L 07/14/2017 Comp Metabolic Pvk943 CL 103 mEq/L 07/14/2017 Comp Metabolic Atv048 CO2 29.0 mEq/L 07/14/2017 Comp Metabolic Ptp368 AN ION GAP 12 07/14/2017 Comp Metabolic Uav062 GL UCOSE 127 mg/dL 07/14/2017 Comp Metabolic Bqe660 Cr eat 0.9 mg/dL 07/14/2017 Comp Metabolic Dja258 eG FR 90 ml/min/1.73m2 07/14 Comp Metabolic Eik722 BUN 8 mg/dL 07/14/2017 Comp Metabolic Iwi862 B/ C Ratio 9.3 Ratio 07/14/2017 Comp Metabolic Ipy394 CA LCIUM 9.5 mg/dL 07/14/2017 Comp Metabolic Zgv056 AL K PHOS 77 U/L 07/14/2017 Comp Metabolic Kfi424 T(SGOT) 18 U/L 07/14/2017 Comp Metabolic Iql578 AL T(SGPT) 20 U/L 07/14/2017 Comp Metabolic Pjq958 BI LI T 0.7 mg/dL 07/14/2017 Comp Metabolic Awm649 AL BUMIN 4.4 g/dL 07/14/2017 Comp Metabolic Pbk369 TP RO 6.9 g/dL 07/14/2017 Comp Metabolic Wum306 GL OB 2.6 g/dL 07/14/2017 Comp Metabolic Cex210 A/ G Ratio 1.7 Ratio 07/14/2017 Comp Metabolic Byk674 Os mo 279 mOsmo 07/14/2017 Free T4 Dtl571 FREE T4 0.97 ng/dL 04/21/2017 Tsh Ord6 TSH (3rd IS) 4.44 uIU/mL 04/21/2017 %Hba1C Ogc125 % HbA1c 25637-4 6.3 % 01/06/2017 %Hba1C Hcw597 Gluc Ave 134 mg/dL 01/06/2017 Cbc With [...] 31.3 pg 01/06/2017 Cbc With Differential Ord2 Castro% 9.2 % 01/06/2017 Cbc With Differential Ord2 [...] 3.60 K/ul 01/06/2017 Cbc With Differential Ord2 Castro ABS# 0.9 K/ul 01/06/2017 Cbc With Differential Ord2 Eos ABS# 0.3 K/ul 01/06/2017 Cbc With Differential Ord2 Baso ABS# 0.0 K/ul 01/06/2017 Lipid Ord30 CHOL 134 mg/dL 01/06/2017 Lipid Ord30 HDL 35.0 mg/dl 01/06/2017 Lipid Ord30 TRIG 111 mg/dL 01/06/2017 Lipid Ord30 LDL 77 mg/dL 01/06/2017 Lipid Ord30 C/HDL 3.8 Ratio 01/06/2017 Comp Metabolic Fbv348 NA 139 mEq/L 01/06/2017 Comp Metabolic Egs048 K 4.2 mEq/L 01/06/2017 Comp Metabolic Tjn380 CL 103 mEq/L 01/06/2017 Comp Metabolic Drx274 CO2 29.0 mEq/L 01/06/2017 Comp Metabolic Fii209 AN ION GAP 11 01/06/2017 Comp Metabolic Uff116 GL UCOSE 121 mg/dL 01/06/2017 Comp Metabolic Mtn738 Cr eat 0.8 mg/dL 01/06/2017 Comp Metabolic Kyo170 eG FR 101 ml/min/1.73m2 12/28 Comp Metabolic Ftc433 BUN 9 mg/dL 01/06/2017 Comp Metabolic Unz568 B/ C Ratio 11.5 Ratio 01/06/2017 Comp Metabolic Dph971 CA LCIUM 9.3 mg/dL 01/06/2017 Comp Metabolic Umy574 AL K PHOS 48 U/L 01/06/2017 Comp Metabolic Tds096 T(SGOT) 15 U/L 01/06/2017 Comp Metabolic Dni616 AL T(SGPT) 17 U/L 01/06/2017 Comp Metabolic Jlk257 BI LI T 0.6 mg/dL 01/06/2017 Comp Metabolic Iqm494 AL BUMIN 4.0 g/dL 01/06/2017 Comp Metabolic Vfq220 TP RO 6.4 g/dL 01/06/2017 Comp Metabolic Mmf858 GL OB 2.4 g/dL 01/06/2017 Comp Metabolic Hbm999 A/ G Ratio 1.7 Ratio 01/06/2017 Comp Metabolic Zdf172 Os mo 277 mOsmo 01/06/2017 Tsh Ord6 [...] 30.9 pg 07/14/2016 Cbc With Differential Ord2 Castro% 8.4 % 07/14/2016 Cbc With Differential Ord2 [...] 2.34 K/ul 07/14/2016 Cbc With Differential Ord2 Castro ABS# 0.7 K/ul 07/14/2016 Cbc With Differential Ord2 Eos ABS# 0.4 K/ul 07/14/2016 Cbc With Differential Ord2 Baso ABS# 0.1 K/ul 07/14/2016 Comp Metabolic Daq765 NA 139 mEq/L 07/14/2016 Comp Metabolic Nxl025 K 4.4 mEq/L 07/14/2016 Comp Metabolic Twt518 CL 103 mEq/L 07/14/2016 Comp Metabolic Qbj988 CO2 31.0 mEq/L 07/14/2016 Comp Metabolic Yro468 AN ION GAP 9 07/14/2016 Comp Metabolic Hpk073 GL UCOSE 109 mg/dL 07/14/2016 Comp Metabolic Xad232 Cr eat 0.9 mg/dL 07/14/2016 Comp Metabolic Rxf405 eG FR 88 ml/min/1.73m2 07/14 Comp Metabolic Svv043 BUN 12 mg/dL 07/14/2016 Comp Metabolic Zlm753 B/ C Ratio 13.6 Ratio 07/14/2016 Comp Metabolic Ckl828 CA LCIUM 8.9 mg/dL 07/14/2016 Comp Metabolic Czl913 AL K PHOS 42 U/L 07/14/2016 Comp Metabolic Gch357 T(SGOT) 14 U/L 07/14/2016 Comp Metabolic Fqa040 AL T(SGPT) 13 U/L 07/14/2016 Comp Metabolic Cjd404 BI LI T 0.6 mg/dL 07/14/2016 Comp Metabolic Jqe609 AL BUMIN 3.8 g/dL 07/14/2016 Comp Metabolic Say982 TP RO 6.2 g/dL 07/14/2016 Comp Metabolic Lbp325 GL OB 2.4 g/dL 07/14/2016 Comp Metabolic Mtq770 A/ G Ratio 1.6 Ratio 07/14/2016 Comp Metabolic Lfj176 Os mo 278 mOsmo 07/14/2016 %Hba1C Kkh886 % HbA1c 22948-4 5.8 % 07/14/2016 %Hba1C Imb886 Gluc Ave 120 mg/dL 07/14/2016 Cbc With [...] 31.3 pg 01/15/2016 Cbc With Differential Ord2 Castro% 8.4 % 01/15/2016 Cbc With Differential Ord2 [...] 2.53 K/ul 01/15/2016 Cbc With Differential Ord2 Castro ABS# 0.8 K/ul 01/15/2016 Cbc With Differential Ord2 Eos ABS# 0.5 K/ul 01/15/2016 Cbc With Differential Ord2 Baso ABS# 0.1 K/ul 01/15/2016 Lipid Ord30 CHOL 119 mg/dL 01/15/2016 Lipid Ord30 HDL 32.0 mg/dl 01/15/2016 Lipid Ord30 TRIG 120 mg/dL 01/15/2016 Lipid Ord30 LDL 63 mg/dL 01/15/2016 Lipid Ord30 C/HDL 3.7 Ratio 01/15/2016 %Hba1C Bot845 % HbA1c 82888-5 5.9 % 01/15/2016 %Hba1C Rsq378 Gluc Ave 123 mg/dL 01/15/2016 Tsh Ord6 hTSH II 2.98 uIU/mL 01/15/2016 Comp Metabolic Lde622 NA 137 mEq/L 01/15/2016 Comp Metabolic Din044 K 3.9 mEq/L 01/15/2016 Comp Metabolic Kqk621 CL 104 mEq/L 01/15/2016 Comp Metabolic Glw062 CO2 26.0 mEq/L 01/15/2016 Comp Metabolic Vwg604 AN ION GAP 11 01/15/2016 Comp Metabolic Oas968 GL UCOSE 113 mg/dL 01/15/2016 Comp Metabolic Tke537 Cr eat 0.8 mg/dL 01/15/2016 Comp Metabolic Kqh767 eG FR 101 ml/min/1.73m2 12/28 Comp Metabolic Vrl983 BUN 10 mg/dL 01/15/2016 Comp Metabolic Mde837 B/ C Ratio 12.8 Ratio 01/15/2016 Comp Metabolic Jyv954 CA LCIUM 9.1 mg/dL 01/15/2016 Comp Metabolic Hrh228 AL K PHOS 51 U/L 01/15/2016 Comp Metabolic Jai968 T(SGOT) 16 U/L 01/15/2016 Comp Metabolic Uiw606 AL T(SGPT) 17 U/L 01/15/2016 Comp Metabolic Bpi818 BI LI T 0.7 mg/dL 01/15/2016 Comp Metabolic Fay389 AL BUMIN 3.9 g/dL 01/15/2016 Comp Metabolic Rvv434 TP RO 6.4 g/dL 01/15/2016 Comp Metabolic Jpr752 GL OB 2.5 g/dL 01/15/2016 Comp Metabolic Guw231 A/ G Ratio 1.5 Ratio 01/15/2016 Comp Metabolic Dls342 Os mo 274 mOsmo 01/15/2016 Cbc With [...] 31.2 pg 07/10/2015 Cbc With Differential Ord2 Castro% 8.5 % 07/10/2015 Cbc With Differential Ord2 [...] 2.86 K/ul 07/10/2015 Cbc With Differential Ord2 Castro ABS# 0.7 K/ul 07/10/2015 Cbc With Differential Ord2 Eos ABS# 0.3 K/ul 07/10/2015 Cbc With Differential Ord2 Baso ABS# 0.0 K/ul 07/10/2015 Cbc With Differential Ord2 New Analyzer Notice Please note new ref ranges s tarting 03-11-2015 due to implemntation of new five part differential hematolgy analyzer. 07/10/2015 Tsh Ord6 hTSH II 3.50 uIU/mL 07/10/2015 Comp Metabolic Mlt523 NA 138 mEq/L 07/10/2015 Comp Metabolic Sbx602 K 4.5 mEq/L 07/10/2015 Comp Metabolic Hqb649 CL 102 mEq/L 07/10/2015 Comp Metabolic Ffb525 CO2 29.0 mEq/L 07/10/2015 Comp Metabolic Lkg814 AN ION GAP 12 07/10/2015 Comp Metabolic Fcx729 GL UCOSE 105 mg/dL 07/10/2015 Comp Metabolic Iqm280 Cr eat 0.9 mg/dL 07/10/2015 Comp Metabolic Mml958 eG FR 85 ml/min/1.73m2 07/09 Comp Metabolic Geq362 BUN 12 mg/dL 07/10/2015 Comp Metabolic Urw558 B/ C Ratio 13.2 Ratio 07/10/2015 Comp Metabolic Glr808 CA LCIUM 9.1 mg/dL 07/10/2015 Comp Metabolic Yin470 AL K PHOS 43 U/L 07/10/2015 Comp Metabolic Tbs348 T(SGOT) 21 U/L 07/10/2015 Comp Metabolic Zrr174 AL T(SGPT) 21 U/L 07/10/2015 Comp Metabolic Rfh291 BI LI T 0.5 mg/dL 07/10/2015 Comp Metabolic Sqz945 AL BUMIN 4.0 g/dL 07/10/2015 Comp Metabolic Cya972 TP RO 6.4 g/dL 07/10/2015 Comp Metabolic Kfu758 GL OB 2.4 g/dL 07/10/2015 Comp Metabolic Hlj846 A/ G Ratio 1.6 Ratio 07/10/2015 Comp Metabolic Lou675 Os mo 276 mOsmo 07/10/2015 Lipid Ord30 CHOL 121 mg/dL 07/10/2015 Lipid Ord30 HDL 33.0 mg/dl 07/10/2015 Lipid Ord30 TRIG 99 mg/dL 07/10/2015 Lipid Ord30 LDL 68 mg/dL 07/10/2015 Lipid Ord30 C/HDL 3.7 Ratio 07/10/2015 %Hba1C Shw608 % HbA1c 20612-4 6.0 % 07/10/2015 %Hba1C Sfw739 Gluc Ave 126 mg/dL 07/10/2015 Comp Metabolic Rcx111 NA 136 mEq/L 12/04/2014 Comp Metabolic Wci600 K 4.1 mEq/L 12/04/2014 Comp Metabolic Uew250 CL 103 mEq/L 12/04/2014 Comp Metabolic Lyn317 CO2 28.0 mEq/L 12/04/2014 Comp Metabolic Dhl703 AN ION GAP 9 12/04/2014 Comp Metabolic Kcx527 GL UCOSE 118 mg/dL 12/04/2014 Comp Metabolic Kxf884 Cr eat 0.9 mg/dL 12/04/2014 Comp Metabolic Dlo532 eG FR 88 ml/min/1.73m2 12/04 Comp Metabolic Ruo983 BUN 10 mg/dL 12/04/2014 Comp Metabolic Wyt682 B/ C Ratio 11.4 Ratio 12/04/2014 Comp Metabolic Gon204 CA LCIUM 9.4 mg/dL 12/04/2014 Comp Metabolic Lfw329 AL K PHOS 50 U/L 12/04/2014 Comp Metabolic Hbo631 T(SGOT) 17 U/L 12/04/2014 Comp Metabolic Afd853 AL T(SGPT) 17 U/L 12/04/2014 Comp Metabolic Zcg152 BI LI T 0.7 mg/dL 12/04/2014 Comp Metabolic Zzy363 AL BUMIN 4.1 g/dL 12/04/2014 Comp Metabolic Pxs420 TP RO 6.4 g/dL 12/04/2014 Comp Metabolic Bgr329 GL OB 2.3 g/dL 12/04/2014 Comp Metabolic Rui988 A/ G Ratio 1.8 Ratio 12/04/2014 Comp Metabolic Anj613 Os mo 272 mOsmo 12/04/2014 Tsh Ord6 hTSH II 4.00 uIU/mL 12/04/2014 %Hba1C Bjf422 % HbA1c 49448-3 6.2 % 12/04/2014 %Hba1C Icv827 Gluc Ave 131 mg/dL 12/04/2014 Cbc With [...] of Systems System Result Effective Dates Constitutional recent illness 06/28/2018 Constitutional No chills [...] Result Effective Dates Notes Full Exam - ENT Constitutional general appearance [...] sounds 04/18/2018 None Full Exam - General 1995 Musculoskeletal upper extremity Palpation - wrist: joint [...] clear 03/13/2018 None Full Exam - General 1995 Ears/Nose/Throat [...] over thenar eminence Procedures Procedure Codes Date THER/PROPH/DIAG INJ SC/IM CPT-4: 39828 06/28/2018 TRIAMCINOLONE ACET I [place] NOS CPT-4: J3301 06/28/2018 DESTRUCT PREMALG LESION CPT-4: 46653 05/30/2018 DESTRUCT PREMALG LES 2-14 CPT-4: 47680 05/30/2018 DESTRUCT PREMALG LES 2-14 CPT-4: 84991 01/16/2018 DESTRUCT PREMALG LESION CPT-4: 62237 01/16/2018 DESTRUCT PREMALG LESION CPT-4: 32254 07/19/2016 DESTRUCT PREMALG LES 2-14 CPT-4: 94520 07/19/2016 DESTRUCT PREMALG LESION CPT-4: 56587 01/13/2015 DESTRUCT PREMALG LES 2-14 CPT-4: 47699 01/13/2015 Vital Signs Date Vital 06/28/2018 BMI: 32.4 Code: 20288-2 Heart Rate 1: 70 bpm Height: 5'11" SpO2: 96% Weight: 232 lbs 05/30/2018 Blood Pressure 1: 140/68 Code: 8480-6 BMI: 32.9 Code: 16440-6 Heart Rate 1: 54 bpm Height: 5'11" SpO2: 96% Weight: 236 lbs 04/18/2018 Blood Pressure 1: 140/72 Code: 8480-6 BMI: 32.8 Code: 64427-7 Heart Rate 1: 52 bpm Height: 5'11" SpO2: 97% Weight: 235 lbs 03/13/2018 Blood Pressure 1: 150/80 Code: 8480-6 BMI: 32.5 Code: 99988-8 Heart Rate 1: 77 bpm Height: 5'11" SpO2: 97% Weight: 233 lbs 01/16/2018 Blood Pressure 1: 138/72 Code: 8480-6 BMI: 32.5 Code: 57522-9 Heart Rate 1: 54 bpm Height: 5'11" SpO2: 95% Weight: 233 lbs 07/18/2017 Blood Pressure 1: 138/68 Code: 8480-6 BMI: 32.2 Code: 20451-5 Heart Rate 1: 59 bpm Height: 5'11" SpO2: 96% Weight: 231 lbs 01/17/2017 Blood Pressure 1: 140/78 Code: 8480-6 BMI: 32.5 Code: 39770-0 Heart Rate 1: 52 bpm Height: 5'11" SpO2: 98% Weight: 233 lbs 07/19/2016 Blood Pressure 1: 140/74 Code: 8480-6 BMI: 32.4 Code: 76085-8 Heart Rate 1: 57 bpm Height: 5'11" SpO2: 95% Weight: 232 lbs 01/19/2016 Blood Pressure 1: 132/60 Code: 8480-6 BMI: 32.9 Code: 92348-9 Heart Rate 1: 58 bpm Height: 5'11" SpO2: 96% Weight: 236 lbs 07/22/2015 Blood Pressure 1: 158/78 Code: 8480-6 Blood Pressure 1: 150/78 Code: 8480-6 BMI: 31.9 Code: 78102-0 Heart Rate 1: 55 bpm Height: 5'11" SpO2: 98% Weight: 229 lbs 01/13/2015 Blood Pressure 1: 146/74 Code: 8480-6 BMI: 32.2 Code: 80750-9 Heart Rate 1: 63 bpm Height: 5'11" SpO2: 97% Weight: 231 lbs 12/03/2014 Blood Pressure 1: 142/78 Code: 8480-6 Blood Pressure 1: 128/75 Code: 8480-6 BMI: 32.4 Code: 01153-6 Heart Rate 1: 57 bpm Height: 5'11" SpO2: 95% Weight: 232 lbs 06/04/2014 Blood Pressure 1: 138/78 Code: 8480-6 BMI: 32.5 Code: 67427-2 Heart Rate 1: 56 bpm Height: 5'11" SpO2: 96% Weight: 233 lbs 12/10/2013 Blood Pressure 1: 122/78 Code: 8480-6 BMI: 32.2 Code: 41191-8 Heart Rate 1: 76 bpm Height: 5'11" Weight: 231 lbs Functional Status No Functional Status data History of Present Illness Symptom Name Status Resu lt Effective Date Notes Location in the lung 06/28/2018 None Quality [...] ies lightheadedness 03/13/2018 None 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 PATIENT, LEVEL IV Diagnosis: Other acute sinusitis[ICD10: J01.80] Diagnosis: Other allergic rhinitis[ICD10: J30.89] Marielle Roberson MD, [facility] CPT-4: 66986 06/28/2018 ([id number]) [id number] EST. P ATIENT, LEVEL IV Diagnosis: Essential (primary) hypertension[ICD10: I10] Diagnosis: Essential tremor[ICD10: G25.0] Diagnosis: Mixed hyperlipidemia[ICD10: E78.2] Diagnosis: Myalgia, other site[ICD10: M79.18] Renita Roberson MD, [facility] CPT- 4: 56345 05/30/2018 ([id number]) [id number] EST. P ATIENT, LEVEL III Diagnosis: Essential tremor[ICD10: G25.0] Renita Roberson MD, [facility] CPT-4: 67031 04/18/2018 ([id number]) [id number] EST. P ATIENT, LEVEL IV Diagnosis: Essential tremor[ICD10: G25.0] Diagnosis: Essential (primary) hypertension[ICD10: I10] Renita Roberson MD, [facility] CPT-4: 05766 03/13/2018 ([id number]) 80329 EST. P ATIENT, LEVEL IV Diagnosis: Type 2 diabetes mellitus without complications[ICD10: E11.9] Diagnosis: Essential (primary) hypertension[ICD10: I10] Diagnosis: Actinic keratosis[ICD10: L57.0] Diagnosis: Lumbago with sciatica, right side[ICD10: M54.41] Renita Roberson MD, C CPT-4: 98168 01/16/2018 ([id number]) 48455 EST. P ATIENT, LEVEL IV Diagnosis: Essential (primary) hypertension[ICD10: I10] Diagnosis: Type 2 diabetes mellitus without complications[ICD10: E11.9] Diagnosis: Actinic keratosis[ICD10: L57.0] Diagnosis: Mixed hyperlipidemia[ICD10: E78.2] Irlanda Roberson MD, [facility] CPT-4: 56843 07/18/2017 ([id number]) 24054 EST. P ATIENT, LEVEL IV Diagnosis: Essential (primary) hypertension[ICD10: I10] Diagnosis: Type 2 diabetes mellitus without complications[ICD10: E11.9] Diagnosis: Hypothyroidism, unspecified[ICD10: E03.9] Diagnosis: Actinic keratosis[ICD10: L57.0] Irlanda Roberson MD, [facility] CPT- 4: 70088 01/17/2017 ([id number]) 85071 EST. P ATIENT, LEVEL III Diagnosis: Essential (primary) hypertension[ICD10: I10] Diagnosis: Mixed hyperlipidemia[ICD10: E78.2] Diagnosis: Type 2 diabetes mellitus without complications[ICD10: E11.9] Diagnosis: Actinic keratosis[ICD10: L57.0] Irlanda Roberson MD, [facility] CPT- 4: 09454 07/19/2016 ([id number]) 30552 EST. P ATIENT, LEVEL IV Diagnosis: Essential (primary) hypertension[ICD10: I10] Diagnosis: Type 2 diabetes mellitus without complications[ICD10: E11.9] Diagnosis: Mixed hyperlipidemia[ICD10: E78.2] Renita Roberson MD, [facility] CPT- 4: 48677 01/19/2016 [id number] EST. PATIENT, LEVEL IV Diagnosis: Essential (primary) hypertension[ICD10: I10] Diagnosis: Type 2 diabetes mellitus without complications[ICD10: E11.9] Marielle Roberson MD, [facility] CPT-4: 33964 07/22/2015 ([id number]) 24532 EST. P ATIENT, LEVEL III Diagnosis: Essential (primary) hypertension[ICD10: I10] Diagnosis: Actinic keratosis[ICD10: L57.0] Diagnosis: Personal history of diseases of the skin and subcutaneous tissue[ICD10: Z87.2] Renita Roberson MD, [facility] CPT-4: 70122 01/13/2015 ([id number]) 89639 EST. P ATIENT, LEVEL IV Diagnosis: Essential (primary) hypertension[ICD10: I10] Diagnosis: Other abnormal glucose[ICD10: R73.09] Renita Roberson MD, [facility] CPT-4: 72425 12/03/2014 ([id number]) 47155 EST. P ATIENT, LEVEL IV Diagnosis: ESSENTIAL HYPERTENSION[ICD9: 401.9] Diagnosis: Benign paroxysmal positional vertigo[ICD9: 386.11] Renita Roberson MD, [facility] CPT-4: 45923 06/04/2014 ([id number]) OFFICE [facility]ISI T [facility] - LEVEL 4 Diagnosis: ESSENTIAL HYPERTENSION[ICD9: 401.9] Diagnosis: Wrist pain, chronic[ICD9: 719.43] Diagnosis: Benign paroxysmal positional vertigo[ICD9: 386.11] Renita Roberson MD, LL C CPT-4: 21496 12/10/2013 Plan of Care Planned Activity Notes C odes Status Date Patient Education: Patient Medication Summary Completed 08/14/2018 Care Plan: Comp Metabolic Pending 08/14/2018 Care Plan: Cbc With Differential Pending 08/14/2018 Care Plan: Tsh Pending 08/14/2018 Care Plan: Free T4 Pending 08/14/2018 Care Plan: %Hba1C FABI C : 92035-2 Pending 08/14/2018 Appointment: Renita Roberson WPtel: [facility][note 3]5 [facility] (15 min) Moderate 07/17/2018 Visit Plan: Sinusitis [...] allergy spray. 06/28/2018 Appointment: Marielle Brush WPtel: [address] [place], [place] [address] (15 min) Moderate 06/28/2018 Patient Education: Patient [...] new cholesterol medication - in TWO WEEKS fruit or nut picker Qunol - coenzyme q10 - it is o magali the counter - start taking this now as it can help to decrease the muscle side effects of the cholesterol medication Actinic Keratosis - treated with cryotherapy x 3, pt advised on how to appropriately care for the lesion. Call if not improved after thorough healing. 05/30/2018 Appointment: Renita Roberson WPtel: [facility][note 3]5 [facility] (15 min) Moderate 05/30/2018 Patient Education: Patient Medication Summary Completed 05/30/2018 Patient Education: Cholesterol Management Completed 05/30/2018 Visit Plan: Essential tremor - incr ease the requip to 0.25mg - 1.5 pills twice daily x 4 days then increase to 0.5mg (two pills) twice daily - I sent the new RX to the [facility] - you can call the pharmacy when you are ready to fruit or nut picker this higher dose. 04/18/2018 Appointment: Renita Roberson WPtel: [facility][note 3]5 [facility] (15 min) Moderate 04/18/2018 Patient Education: Patient [...] at home. 03/13/2018 Appointment: Renita Roberson WPtel: [facility][note 3]0 [facility] (15 min) Moderate 03/13/2018 Patient Education: Patient Medication Summary Completed 03/13/2018 Patient Education: Hypertension Completed 03/13/2018 Visit Plan: Diabetes Mellitus - con marioed - per recent FSBS reports. I have [...] thorough healing. 01/16/2018 Appointment: Renita Roberson WPtel: [facility] ([facility] min) Moderate 01/16/2018 Patient Education: Patient [...] office 07/18/2017 Appointment[phone] [phone] (30 min) Complex 07/18/2017 Patient Education: Patient [...] office 01/17/2017 Appointment: [phone] [phone] (30 min) Complex 01/17/2017 Patient Education: Patient [...] and nose 07/19/2016 Appointment: Irlanda Huerta WPtel: [phone] [phone] (30 min) Complex 07/19/2016 Patient Education: Patient Medication Summary Completed 07/19/2016 Patient Education: Obesity Completed 07/19/2016 Patient Education: Patient Medication Summary Completed 07/14/2016 Appointment: Marielle Brush WPtel: [phone] [facility] [facility] - Annual Wellness Visit 01/28/2016 Appointment: [facility]landa [facility] [phone] [phone] [facility] - Annual Wellness Visit 01/26/2016 Visit Plan: Diabetes Mellitus - con jose [...] me dications. 01/19/2016 Appointment: Renita Roberson WPtel: [facility][note 3]7 [facility] (15 min) Moderate 01/19/2016 Patient Education: Patient [...] right scalp 01/13/2015 Appointment: Renita Roberson WPtel: [address] [place], [place] [id number] (15 min) Moderate 01/13/2015 Patient Education: Patient [...] with metformin 12/03/2014 Appointment: Renita Roberson WPtel: [facility][note 3] [facility] Follow up 12/03/2014 Patient Education: [...] instructions/medication interventions. 06/04/2014 Appointment: Renita Roberson WPtel: [address] [place] [address] Follow up 06/04/2014 Patient Education: Patient Medication Summary Completed 06/04/2014 Patient Education: Hypertension Completed 06/04/2014 Care Plan: Referral Order SNOMED-CT : [id number] Ordered 06/04/2014 Visit Plan: Hypertension - well [...] Dr. Starr. 12/10/2013 Appointment: Renita Roberson WPtel: [address] [place] [address] bringing in new pt paperwork New Patient 12/10/2013 Patient Education: Patient Medication Summary Completed 12/10/2013 Patient Education: Hypertension Completed 12/10/2013 Referral: Don Rodriguez WPtel: [phone] [facility] Referral Appointment Requested Instructions Comment increase the requip to 0.25mg - 1.5 pills twice daily x 4 days then increase to 0.5mg (two pills) twice daily - I sent the new RX to the [facility] - you can call the pharmacy when you are ready to fruit or nut picker this higher dose. . Essential tremor - increase the requip to 0.25mg - 1.5 pills twice daily x 4 days then increase to 0.5mg (two pills) twice daily - I sent the new RX to the [facility] - you can call the pharmacy when you are ready to fruit or nut picker this higher dose. . Diabetes Mellitus - [...] call the office for further instructions/medication interventions. stop the simvastatin - - this medication interacts with the AMLODIPINE the ankle swelling is due to the Amlodipine - it causes dilation of blood vessels. start on ATORVASTATIN - the new cholesterol medication - in TWO WEEKS fruit or nut picker Qunol - coenzyme q10 - it is [...] new cholesterol medication - in TWO WEEKS fruit or nut picker Qunol - coenzyme q10 - it is [...]
--- OUTSIDE RECORDS SUMMARY | 2019-06-22 15:18 | XMS REPORT | CCD ---
Author Author Ravinder Roberson Organization Renita Roberson MD, [facility] Address [address] [place] [address] Phone Care Team Providers Care Reclaimer Name Role Phone PP Unavailable CCM Unavailable Summary Purpose Interface Exchange Insurance Providers Payer name Policy type / Coverage type Covered green party ID Effective Begin Date Effective End Date WPS Medicare Part B Medicare Part B [id number] Unknown [facility] icare Part B [id number] Un known Family history Father Diagnosis Age At Onset Hypertension Unknown Brother Diagnosis Age At Onset Coronary Artery Disease Unknown Cancer Unknown Hypertension Unknown Mother Diagnosis Age At Onset Hypertension Unknown Social History Social History Element Codes Description Effective Dates Marital status Unknown M arried 12/10/2013 Number of children Unknown 2 12/10/2013 Employment Unknown Retir ed 12/10/[address]: 6616110 Former smoker quit 1980 12/10/[address]: 411343425 Never drinks alcohol 12/10/2013 Allergies, Adverse Reactions, [...] 40 mg/mL darrian pension for injection RxNorm: 0443291 Milliliter(s) Inj 06/28/2018 06/28/2018 In active Keflex 500 mg capsule RxNorm: 305574 1 Capsule(s) PO TID 06/28/2018 07/07/2018 Inactive atorvastatin 10 mg t ablet RxNorm: 274048 1 Tablet(s) PO QHS 05/30/2018 05/24/2019 Active amlodipine 10 mg tablet RxNorm: 591896 1 Tablet(s) PO daily by Dr. Jade 05/30/2018 12/25/2018 Ac tive Requip 0.5 mg tablet RxNorm: 731478 1 Tablet(s) PO BID morning and early remi felecia 04/30/2018 11/25/2018 Ac tive he just filled a requip 0.25mg rx - he w ill double his meds then call when he needs this filled metformin ER 500 mg tablet,extended release 24hr RxNorm: 6519175 Tablet(s) TAKE ONE TABLET BY MOUTH TWICE DAILY 04/30/2018 No Stop Date Active Requip 0.5 mg tablet RxNorm: 918078 1 Tablet(s) PO BID morning and early rmei felecia 04/18/2018 04/29/2018 Inactive he just filled a requip 0.25mg rx - he w ill double his meds then call when he needs this filled amlodipine 5 mg tablet RxNorm: 920227 1 Tablet(s) PO daily by Dr. Jade 03/13/2018 05/29/2018 In active Requip 0.25 mg tablet RxNorm: 238998 1 Tablet(s) PO BID morning and early remi felecia 03/13/2018 04/17/2018 Inactive triamcinolone aceton andrews 0.1 % topical cream RxNorm: 9514809 1 Application TOP BI D as needed 01/16/2018 05/15/2018 Inactive he would like 3 15 gram tub es triamcinolone aceton andrews 0.1 % topical cream RxNorm: 0684994 1 Application TOP BI D as needed 01/16/2018 01/15/2018 Inactive he would like 3 15 gram tub es amlodipine 10 mg tablet RxNorm: 253443 1 Tablet(s) PO daily by Dr. Jade 01/16/2018 03/12/2018 In active metformin ER 500 mg tablet,extended release 24hr RxNorm: 6798760 TAKE ONE TABLET BY MOUTH TWICE DAILY 12/04/2017 04/29/2018 Inactive metformin ER 500 mg tablet,extended release 24hr RxNorm: 6716720 TAKE ONE TABLET BY MOUTH TWICE DAILY 03/22/2017 12/03/2017 Inactive Tylenol PM Extra Str ength 25 mg-500 mg tablet RxNorm: 6582007 1 Tablet(s) PO QHS 01/17/2017 No Stop Date Active triamcinolone aceton andrews 0.1 % topical cream RxNorm: 7945546 1 Application TOP BI D as needed 01/17/2017 05/16/2017 Inactive metformin ER 500 mg tablet,extended release 24hr RxNorm: 447244 TAKE ONE TABLET BY MOUTH TWICE DAILY 09/27/2016 03/21/2017 Inactive triamcinolone aceton andrews 0.1 % topical cream RxNorm: 3289081 1 Application TOP BI D as needed 07/19/2016 09/16/2016 Inactive metformin ER 500 mg tablet,extended release 24hr RxNorm: 369818 1 Tablet(s) PO BID 08/19/2015 09/26/2016 In active metformin ER 500 mg tablet,extended release 24hr RxNorm: 611731 1 Tablet(s) PO BID 08/14/2015 08/18/2015 In active metformin ER 500 mg tablet,extended release 24hr RxNorm: 386903 1 Tablet(s) PO BID 04/09/2015 08/13/2015 In active triamcinolone aceton andrews 0.1 % topical cream RxNorm: 6696581 1 Application TOP BI D as needed 01/13/2015 07/18/2016 Inactive Flonase Allergy Reli ef 50 mcg/actuation nasal spray,suspension RxNorm: 1 [place] NASAL BID 12/03/2014 01/12/2015 Inactive triamcinolone aceton andrews 0.1 % topical cream RxNorm: 1836171 1 Application TOP BI D as needed 06/04/2014 01/12/2015 Inactive metformin ER 500 mg tablet,extended release 24hr RxNorm: 318260 1 Tablet(s) PO BID 03/05/2014 04/08/2015 In active multivitamin oral RxNorm: 56421 oral No Start Date Active Vitamin B-12 oral RxNorm: 57700 oral No Start Date Active Baby Aspirin 81 mg c hewable tablet RxNorm: 484319 1 Tablet(s) PO daily No Start Date Active Inderal LA 160 mg ca psule,extended release RxNorm: 621614 1 Capsule(s) PO daily No Start Date Active amlodipine 5 mg tablet RxNorm: 652754 1 Tablet(s) PO daily No Start Date 01/15/2018 Inactive multivitamin tablet RxNorm: 1 Tablet(s) PO daily No Start Date 01/16/2017 Inactive tramadol 50 mg tablet RxNorm: 007424 1 Tablet(s) PO TID No Start Date 07/21/2015 Inactive Tylenol PM Extra Str ength 25 mg-500 mg tablet RxNorm: 7967629 2 Tablet(s) PO QHS No Start Date 01/16/2017 Inactive metformin ER 500 mg tablet,extended release 24hr RxNorm: 113235 1 Tablet(s) PO BID No Start Date 03/04/2014 Inactive Methotrexate (Anti-R heumatic) 2.5 mg tablet RxNorm: 945289 8 Tablet(s) PO one ti me per week No Start Date 07/21/2015 Inactive Protonix 40 mg table t,delayed release RxNorm: 217122 1 Tablet(s) PO daily No Start Date 12/02/2014 Inactive Vitamin B-12 1,000 m cg tablet RxNorm: 897884 1 Tablet(s) PO daily No Start Date 01/16/2017 Inactive simvastatin 10 mg ta blet RxNorm: 004078 1 Tablet(s) PO daily No Start Date 05/29/2018 Inactive propranolol ER 120 m g capsule,24 hr,extended release RxNorm: 502374 1 Capsule(s) PO daily No Start Date 07/17/2017 Inactive Medication Administered Medication Codes Instruc tions Start Date Status Kenalog 40 mg/mL suspension for injection RxNorm: 8521055 Milliliter 06/28/2018 No longer Active Immunizations Vaccine [...] Result Date Cbc With Differential Ord2 WBC 9.05 K/ul [...] 31.0 pg 01/11/2018 Cbc With Differential Ord2 Harding% 8.8 % 01/11/2018 Cbc With Differential Ord2 [...] 2.90 K/ul 01/11/2018 Cbc With Differential Ord2 Harding ABS# 0.8 K/ul 01/11/2018 Cbc With Differential Ord2 Eos ABS# 0.3 K/ul 01/11/2018 Cbc With Differential Ord2 Baso ABS# 0.1 K/ul 01/11/2018 %Hba1C Nwo785 % HbA1c 80177-6 6.0 % 01/11/2018 %Hba1C Fyc673 Gluc Ave 126 mg/dL 01/11/2018 Tsh Ord6 TSH (3rd IS) 5.07 uIU/mL 01/11/2018 Lipid Ord30 CHOL 131 mg/dL 01/11/2018 Lipid Ord30 HDL 36.0 mg/dl 01/11/2018 Lipid Ord30 TRIG 59 mg/dL 01/11/2018 Lipid Ord30 LDL 83 mg/dL 01/11/2018 Lipid Ord30 C/HDL 3.6 Ratio 01/11/2018 Free T4 Awf137 FREE T4 1.00 ng/dL 01/11/2018 Comp Metabolic Bek300 NA 141 mEq/L 01/11/2018 Comp Metabolic Xqw973 K 4.1 mEq/L 01/11/2018 Comp Metabolic Ibf837 CL 104 mEq/L 01/11/2018 Comp Metabolic Ytj983 CO2 30.0 mEq/L 01/11/2018 Comp Metabolic Jom393 AN ION GAP 11 01/11/2018 Comp Metabolic Ibb771 GL UCOSE 131 mg/dL 01/11/2018 Comp Metabolic Frf185 Cr eat 0.9 mg/dL 01/11/2018 Comp Metabolic Twd529 eG FR 86 ml/min/1.73m2 01/11 Comp Metabolic Zan733 BUN 10 mg/dL 01/11/2018 Comp Metabolic Lvl092 B/ C Ratio 11.2 Ratio 01/11/2018 Comp Metabolic Iox431 CA LCIUM 9.1 mg/dL 01/11/2018 Comp Metabolic Omp088 AL K PHOS 49 U/L 01/11/2018 Comp Metabolic Bry599 T(SGOT) 14 U/L 01/11/2018 Comp Metabolic Bip760 AL T(SGPT) 13 U/L 01/11/2018 Comp Metabolic Muy252 BI LI T 0.6 mg/dL 01/11/2018 Comp Metabolic Sez382 AL BUMIN 4.0 g/dL 01/11/2018 Comp Metabolic Krz680 TP RO 6.4 g/dL 01/11/2018 Comp Metabolic Yxk396 GL OB 2.4 g/dL 01/11/2018 Comp Metabolic Ohf973 A/ G Ratio 1.6 Ratio 01/11/2018 Comp Metabolic Kst850 Os mo 282 mOsmo 01/11/2018 %Hba1C Ddn624 % HbA1c 65933-6 6.2 % 07/14/2017 %Hba1C Sfb097 Gluc Ave 131 mg/dL 07/14/2017 Cbc With [...] 31.1 pg 07/14/2017 Cbc With Differential Ord2 Harding% 8.5 % 07/14/2017 Cbc With Differential Ord2 [...] 2.76 K/ul 07/14/2017 Cbc With Differential Ord2 Harding ABS# 0.8 K/ul 07/14/2017 Cbc With Differential Ord2 Eos ABS# 0.4 K/ul 07/14/2017 Cbc With Differential Ord2 Baso ABS# 0.0 K/ul 07/14/2017 Free T4 Dwc045 FREE T4 0.97 ng/dL 07/14/2017 Tsh Ord6 TSH (3rd IS) 4.46 uIU/mL 07/14/2017 Comp Metabolic Ooi389 NA 140 mEq/L 07/14/2017 Comp Metabolic Zvq482 K 4.2 mEq/L 07/14/2017 Comp Metabolic Bkj002 CL 103 mEq/L 07/14/2017 Comp Metabolic Zbb941 CO2 29.0 mEq/L 07/14/2017 Comp Metabolic Ywr096 AN ION GAP 12 07/14/2017 Comp Metabolic Clg120 GL UCOSE 127 mg/dL 07/14/2017 Comp Metabolic Auu702 Cr eat 0.9 mg/dL 07/14/2017 Comp Metabolic Xkd410 eG FR 90 ml/min/1.73m2 07/14 Comp Metabolic Moi954 BUN 8 mg/dL 07/14/2017 Comp Metabolic Gjk507 B/ C Ratio 9.3 Ratio 07/14/2017 Comp Metabolic Fgn741 CA LCIUM 9.5 mg/dL 07/14/2017 Comp Metabolic Yon161 AL K PHOS 77 U/L 07/14/2017 Comp Metabolic Msg269 T(SGOT) 18 U/L 07/14/2017 Comp Metabolic Jal760 AL T(SGPT) 20 U/L 07/14/2017 Comp Metabolic Nae347 BI LI T 0.7 mg/dL 07/14/2017 Comp Metabolic Prd865 AL BUMIN 4.4 g/dL 07/14/2017 Comp Metabolic Ayr204 TP RO 6.9 g/dL 07/14/2017 Comp Metabolic Ear620 GL OB 2.6 g/dL 07/14/2017 Comp Metabolic Bro727 A/ G Ratio 1.7 Ratio 07/14/2017 Comp Metabolic Dpq086 Os mo 279 mOsmo 07/14/2017 Free T4 Obm096 FREE T4 0.97 ng/dL 04/21/2017 Tsh Ord6 TSH (3rd IS) 4.44 uIU/mL 04/21/2017 %Hba1C Aea549 % HbA1c 62292-4 6.3 % 01/06/2017 %Hba1C Lex263 Gluc Ave 134 mg/dL 01/06/2017 Cbc With [...] 31.3 pg 01/06/2017 Cbc With Differential Ord2 Harding% 9.2 % 01/06/2017 Cbc With Differential Ord2 [...] 3.60 K/ul 01/06/2017 Cbc With Differential Ord2 Hard[place] ABS# 0.9 K/ul 01/06/2017 Cbc With Differential Ord2 Eos ABS# 0.3 K/ul 01/06/2017 Cbc With Differential Ord2 Baso ABS# 0.0 K/ul 01/06/2017 Lipid Ord30 CHOL 134 mg/dL 01/06/2017 Lipid Ord30 HDL 35.0 mg/dl 01/06/2017 Lipid Ord30 TRIG 111 mg/dL 01/06/2017 Lipid Ord30 LDL 77 mg/dL 01/06/2017 Lipid Ord30 C/HDL 3.8 Ratio 01/06/2017 Comp Metabolic Qvo789 NA 139 mEq/L 01/06/2017 Comp Metabolic Mks997 K 4.2 mEq/L 01/06/2017 Comp Metabolic Orx730 CL 103 mEq/L 01/06/2017 Comp Metabolic Nhe780 CO2 29.0 mEq/L 01/06/2017 Comp Metabolic Ert568 AN ION GAP 11 01/06/2017 Comp Metabolic Ogp723 GL UCOSE 121 mg/dL 01/06/2017 Comp Metabolic Dmd436 Cr eat 0.8 mg/dL 01/06/2017 Comp Metabolic Cdq372 eG FR 101 ml/min/1.73m2 12/28 Comp Metabolic Fuo842 BUN 9 mg/dL 01/06/2017 Comp Metabolic Rol127 B/ C Ratio 11.5 Ratio 01/06/2017 Comp Metabolic Eww346 CA LCIUM 9.3 mg/dL 01/06/2017 Comp Metabolic Tco480 AL K PHOS 48 U/L 01/06/2017 Comp Metabolic Aaq463 T(SGOT) 15 U/L 01/06/2017 Comp Metabolic Goc824 AL T(SGPT) 17 U/L 01/06/2017 Comp Metabolic Ygw217 BI LI T 0.6 mg/dL 01/06/2017 Comp Metabolic Tcv480 AL BUMIN 4.0 g/dL 01/06/2017 Comp Metabolic Jmv753 TP RO 6.4 g/dL 01/06/2017 Comp Metabolic Xvv215 GL OB 2.4 g/dL 01/06/2017 Comp Metabolic Ftx039 A/ G Ratio 1.7 Ratio 01/06/2017 Comp Metabolic Epu619 Os mo 277 mOsmo 01/06/2017 Tsh Ord6 [...] 30.9 pg 07/14/2016 Cbc With Differential Ord2 Harding% 8.4 % 07/14/2016 Cbc With Differential Ord2 [...] 2.34 K/ul 07/14/2016 Cbc With Differential Ord2 [place] ABS# 0.7 K/ul 07/14/2016 Cbc With Differential Ord2 Eos ABS# 0.4 K/ul 07/14/2016 Cbc With Differential Ord2 Baso ABS# 0.1 K/ul 07/14/2016 Comp Metabolic Esa636 NA 139 mEq/L 07/14/2016 Comp Metabolic Dfp372 K 4.4 mEq/L 07/14/2016 Comp Metabolic Iyx496 CL 103 mEq/L 07/14/2016 Comp Metabolic Icz730 CO2 31.0 mEq/L 07/14/2016 Comp Metabolic Lrh265 AN ION GAP 9 07/14/2016 Comp Metabolic Nla306 GL UCOSE 109 mg/dL 07/14/2016 Comp Metabolic Sgo548 Cr eat 0.9 mg/dL 07/14/2016 Comp Metabolic Gmq807 eG FR 88 ml/min/1.73m2 07/14 Comp Metabolic Fuc294 BUN 12 mg/dL 07/14/2016 Comp Metabolic Hst412 B/ C Ratio 13.6 Ratio 07/14/2016 Comp Metabolic Guf264 CA LCIUM 8.9 mg/dL 07/14/2016 Comp Metabolic Sxx114 AL K PHOS 42 U/L 07/14/2016 Comp Metabolic Nec351 T(SGOT) 14 U/L 07/14/2016 Comp Metabolic Ohb330 AL T(SGPT) 13 U/L 07/14/2016 Comp Metabolic Whu878 BI LI T 0.6 mg/dL 07/14/2016 Comp Metabolic Omo244 AL BUMIN 3.8 g/dL 07/14/2016 Comp Metabolic Nsr414 TP RO 6.2 g/dL 07/14/2016 Comp Metabolic Cny878 GL OB 2.4 g/dL 07/14/2016 Comp Metabolic Xet097 A/ G Ratio 1.6 Ratio 07/14/2016 Comp Metabolic Lvs869 Os mo 278 mOsmo 07/14/2016 %Hba1C Oaf582 % HbA1c 41860-0 5.8 % 07/14/2016 %Hba1C Qpa449 Gluc Ave 120 mg/dL 07/14/2016 Cbc With [...] 31.3 pg 01/15/2016 Cbc With Differential Ord2 Harding% 8.4 % 01/15/2016 Cbc With Differential Ord2 [...] 2.53 K/ul 01/15/2016 Cbc With Differential Ord2 [place] ABS# 0.8 K/ul 01/15/2016 Cbc With Differential Ord2 Eos ABS# 0.5 K/ul 01/15/2016 Cbc With Differential Ord2 Baso ABS# 0.1 K/ul 01/15/2016 Lipid Ord30 CHOL 119 mg/dL 01/15/2016 Lipid Ord30 HDL 32.0 mg/dl 01/15/2016 Lipid Ord30 TRIG 120 mg/dL 01/15/2016 Lipid Ord30 LDL 63 mg/dL 01/15/2016 Lipid Ord30 C/HDL 3.7 Ratio 01/15/2016 %Hba1C Tsi922 % HbA1c 37264-0 5.9 % 01/15/2016 %Hba1C Aen942 Gluc Ave 123 mg/dL 01/15/2016 Tsh Ord6 hTSH II 2.98 uIU/mL 01/15/2016 Comp Metabolic Ipu441 NA 137 mEq/L 01/15/2016 Comp Metabolic Haj035 K 3.9 mEq/L 01/15/2016 Comp Metabolic Oqt369 CL 104 mEq/L 01/15/2016 Comp Metabolic Quk514 CO2 26.0 mEq/L 01/15/2016 Comp Metabolic Alw702 AN ION GAP 11 01/15/2016 Comp Metabolic Ilg477 GL UCOSE 113 mg/dL 01/15/2016 Comp Metabolic Qpn567 Cr eat 0.8 mg/dL 01/15/2016 Comp Metabolic Jdh405 eG FR 101 ml/min/1.73m2 12/28 Comp Metabolic Uuo653 BUN 10 mg/dL 01/15/2016 Comp Metabolic Jqt722 B/ C Ratio 12.8 Ratio 01/15/2016 Comp Metabolic Cfv979 CA LCIUM 9.1 mg/dL 01/15/2016 Comp Metabolic Ted091 AL K PHOS 51 U/L 01/15/2016 Comp Metabolic Vbq255 T(SGOT) 16 U/L 01/15/2016 Comp Metabolic Flk105 AL T(SGPT) 17 U/L 01/15/2016 Comp Metabolic Lwd653 BI LI T 0.7 mg/dL 01/15/2016 Comp Metabolic Bee643 AL BUMIN 3.9 g/dL 01/15/2016 Comp Metabolic Esg361 TP RO 6.4 g/dL 01/15/2016 Comp Metabolic Omr991 GL OB 2.5 g/dL 01/15/2016 Comp Metabolic Zhz444 A/ G Ratio 1.5 Ratio 01/15/2016 Comp Metabolic Fab190 Os mo 274 mOsmo 01/15/2016 Cbc With [...] 31.2 pg 07/10/2015 Cbc With Differential Ord2 Harding% 8.5 % 07/10/2015 Cbc With Differential Ord2 [...] 2.86 K/ul 07/10/2015 Cbc With Differential Ord2 [place] ABS# 0.7 K/ul 07/10/2015 Cbc With Differential Ord2 Eos ABS# 0.3 K/ul 07/10/2015 Cbc With Differential Ord2 Baso ABS# 0.0 K/ul 07/10/2015 Cbc With Differential Ord2 New Analyzer Notice Please note new ref ranges s tarting 03-11-2015 due to implemntation of new five part differential hematolgy analyzer. 07/10/2015 Tsh Ord6 hTSH II 3.50 uIU/mL 07/10/2015 Comp Metabolic Uvm655 NA 138 mEq/L 07/10/2015 Comp Metabolic Maw394 K 4.5 mEq/L 07/10/2015 Comp Metabolic Wdm410 CL 102 mEq/L 07/10/2015 Comp Metabolic Tho739 CO2 29.0 mEq/L 07/10/2015 Comp Metabolic Ery375 AN ION GAP 12 07/10/2015 Comp Metabolic Azk998 GL UCOSE 105 mg/dL 07/10/2015 Comp Metabolic Cjr438 Cr eat 0.9 mg/dL 07/10/2015 Comp Metabolic Fzz273 eG FR 85 ml/min/1.73m2 07/09 Comp Metabolic Yyv791 BUN 12 mg/dL 07/10/2015 Comp Metabolic Jua040 B/ C Ratio 13.2 Ratio 07/10/2015 Comp Metabolic Cim103 CA LCIUM 9.1 mg/dL 07/10/2015 Comp Metabolic Mys873 AL K PHOS 43 U/L 07/10/2015 Comp Metabolic Jms388 T(SGOT) 21 U/L 07/10/2015 Comp Metabolic Dvn376 AL T(SGPT) 21 U/L 07/10/2015 Comp Metabolic Nkq767 BI LI T 0.5 mg/dL 07/10/2015 Comp Metabolic Cyv553 AL BUMIN 4.0 g/dL 07/10/2015 Comp Metabolic Ncq593 TP RO 6.4 g/dL 07/10/2015 Comp Metabolic Bke170 GL OB 2.4 g/dL 07/10/2015 Comp Metabolic Umu447 A/ G Ratio 1.6 Ratio 07/10/2015 Comp Metabolic Kej264 Os mo 276 mOsmo 07/10/2015 Lipid Ord30 CHOL 121 mg/dL 07/10/2015 Lipid Ord30 HDL 33.0 mg/dl 07/10/2015 Lipid Ord30 TRIG 99 mg/dL 07/10/2015 Lipid Ord30 LDL 68 mg/dL 07/10/2015 Lipid Ord30 C/HDL 3.7 Ratio 07/10/2015 %Hba1C Dym990 % HbA1c 12821-3 6.0 % 07/10/2015 %Hba1C Lbq666 Gluc Ave 126 mg/dL 07/10/2015 Comp Metabolic Daj047 NA 136 mEq/L 12/04/2014 Comp Metabolic Etw249 K 4.1 mEq/L 12/04/2014 Comp Metabolic Fsc481 CL 103 mEq/L 12/04/2014 Comp Metabolic Jfg262 CO2 28.0 mEq/L 12/04/2014 Comp Metabolic Svy548 AN ION GAP 9 12/04/2014 Comp Metabolic Nbw558 GL UCOSE 118 mg/dL 12/04/2014 Comp Metabolic Vnl081 Cr eat 0.9 mg/dL 12/04/2014 Comp Metabolic Okt399 eG FR 88 ml/min/1.73m2 12/04 Comp Metabolic Nzs525 BUN 10 mg/dL 12/04/2014 Comp Metabolic Rjl665 B/ C Ratio 11.4 Ratio 12/04/2014 Comp Metabolic Mjv297 CA LCIUM 9.4 mg/dL 12/04/2014 Comp Metabolic Tju712 AL K PHOS 50 U/L 12/04/2014 Comp Metabolic Fmj007 T(SGOT) 17 U/L 12/04/2014 Comp Metabolic Asy060 AL T(SGPT) 17 U/L 12/04/2014 Comp Metabolic Onl588 BI LI T 0.7 mg/dL 12/04/2014 Comp Metabolic Yzj153 AL BUMIN 4.1 g/dL 12/04/2014 Comp Metabolic Idt828 TP RO 6.4 g/dL 12/04/2014 Comp Metabolic Xtg489 GL OB 2.3 g/dL 12/04/2014 Comp Metabolic Rmq488 A/ G Ratio 1.8 Ratio 12/04/2014 Comp Metabolic Bnn264 Os mo 272 mOsmo 12/04/2014 Tsh Ord6 hTSH II 4.00 uIU/mL 12/04/2014 %Hba1C Jjj150 % HbA1c 76628-8 6.2 % 12/04/2014 %Hba1C Pfg164 Gluc Ave 131 mg/dL 12/04/2014 Cbc With [...] 1995 Ears/Nose/Throat oral cavity/pharynx/larynx Overall: hypopharynx benign 04/18/2018 [...] rate 04/18/2018 None Full Exam - General 1995 Cardiovascular extremities Overall: no clubbing 04/18/2018 None [...] Procedure Codes Date THER/PROPH/DIAG INJ SC/IM CPT-4: 92446 06/28/2018 TRIAMCINOLONE ACET I [place] NOS CPT-4: J3301 06/28/2018 DESTRUCT PREMALG LESION CPT-4: 66787 05/30/2018 DESTRUCT PREMALG LES 2-14 CPT-4: 05/30/2018 DESTRUCT PREMALG LES 2-14 CPT-4: 84840 01/16/2018 DESTRUCT PREMALG LESION CPT-4: 47798 01/16/2018 DESTRUCT PREMALG LESION CPT-4: 11405 07/19/2016 DESTRUCT PREMALG LES 2-14 CPT-4: 59076 07/19/2016 DESTRUCT PREMALG LESION CPT-4: 71215 01/13/2015 DESTRUCT PREMALG LES 2-14 CPT-4: 98824 01/13/2015 Vital Signs Date Vital 06/28/2018 BMI: 32.4 Code: 16427-3 Heart Rate 1: 70 bpm Height: 5'11" SpO2: 96% Weight: 232 lbs 05/30/2018 Blood Pressure 1: 140/68 Code: 8480-6 BMI: 32.9 Code: 75778-6 Heart Rate 1: 54 bpm Height: 5'11" SpO2: 96% Weight: 236 lbs 04/18/2018 Blood Pressure 1: 140/72 Code: 8480-6 BMI: 32.8 Code: 21989-7 Heart Rate 1: 52 bpm Height: 5'11" SpO2: 97% Weight: 235 lbs 03/13/2018 Blood Pressure 1: 150/80 Code: 8480-6 BMI: 32.5 Code: 03629-0 Heart Rate 1: 77 bpm Height: 5'11" SpO2: 97% Weight: 233 lbs 01/16/2018 Blood Pressure 1: 138/72 Code: 8480-6 BMI: 32.5 Code: 09768-9 Heart Rate 1: 54 bpm Height: 5'11" SpO2: 95% Weight: 233 lbs 07/18/2017 Blood Pressure 1: 138/68 Code: 8480-6 BMI: 32.2 Code: 62619-1 Heart Rate 1: 59 bpm Height: 5'11" SpO2: 96% Weight: 231 lbs 01/17/2017 Blood Pressure 1: 140/78 Code: 8480-6 BMI: 32.5 Code: 76553-2 Heart Rate 1: 52 bpm Height: 5'11" SpO2: 98% Weight: 233 lbs 07/19/2016 Blood Pressure 1: 140/74 Code: 8480-6 BMI: 32.4 Code: 64719-5 Heart Rate 1: 57 bpm Height: 5'11" SpO2: 95% Weight: 232 lbs 01/19/2016 Blood Pressure 1: 132/60 Code: 8480-6 BMI: 32.9 Code: 31069-5 Heart Rate 1: 58 bpm Height: 5'11" SpO2: 96% Weight: 236 lbs 07/22/2015 Blood Pressure 1: 158/78 Code: 8480-6 Blood Pressure 1: 150/78 Code: 8480-6 BMI: 31.9 Code: 79570-7 Heart Rate 1: 55 bpm Height: 5'11" SpO2: 98% Weight: 229 lbs 01/13/2015 Blood Pressure 1: 146/74 Code: 8480-6 BMI: 32.2 Code: 68435-3 Heart Rate 1: 63 bpm Height: 5'11" SpO2: 97% Weight: 231 lbs 12/03/2014 Blood Pressure 1: 142/78 Code: 8480-6 Blood Pressure 1: 128/75 Code: 8480-6 BMI: 32.4 Code: 36780-2 Heart Rate 1: 57 bpm Height: 5'11" SpO2: 95% Weight: 232 lbs 06/04/2014 Blood Pressure 1: 138/78 Code: 8480-6 BMI: 32.5 Code: 22600-1 Heart Rate 1: 56 bpm Height: 5'11" SpO2: 96% Weight: 233 lbs 12/10/2013 Blood Pressure 1: 122/78 Code: 8480-6 BMI: 32.2 Code: 73014-2 Heart Rate 1: 76 bpm Height: 5'11" [...] ies lightheadedness 03/13/2018 None 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 PATIENT, LEVEL IV Diagnosis: Other acute sinusitis[ICD10: J01.80] Diagnosis: Other allergic rhinitis[ICD10: J30.89] Marielle Roberson MD, [facility] CPT-4: 91007 06/28/2018 ([id number]) 06511 EST. P ATIENT, LEVEL IV Diagnosis: Essential (primary) hypertension[ICD10: I10] Diagnosis: Essential tremor[ICD10: G25.0] Diagnosis: Mixed hyperlipidemia[ICD10: E78.2] Diagnosis: Myalgia, other site[ICD10: M79.18] Renita Roberson MD, [facility] CPT- 4: 48288 05/30/2018 ([id number]) 86002 EST. P ATIENT, LEVEL III Diagnosis: Essential tremor[ICD10: G25.0] Renita Roberson MD, [facility] CPT-4: 05107 04/18/2018 ([id number]) 75379 EST. P ATIENT, LEVEL IV Diagnosis: Essential tremor[ICD10: G25.0] Diagnosis: Essential (primary) hypertension[ICD10: I10] Renita Roberson MD, [facility] CPT-4: 30330 03/13/2018 ([id number]) 99298 EST. P ATIENT, LEVEL IV Diagnosis: Type 2 diabetes mellitus without complications[ICD10: E11.9] Diagnosis: Essential (primary) hypertension[ICD10: I10] Diagnosis: Actinic keratosis[ICD10: L57.0] Diagnosis: Lumbago with sciatica, right side[ICD10: M54.41] Renita Roberson MD, [facility] CPT-4: 42027 01/16/2018 ([id number]) 12719 EST. P ATIENT, LEVEL IV Diagnosis: Essential (primary) hypertension[ICD10: I10] Diagnosis: Type 2 diabetes mellitus without complications[ICD10: E11.9] Diagnosis: Actinic keratosis[ICD10: L57.0] Diagnosis: Mixed hyperlipidemia[ICD10: E78.2] Irlanda Roberson MD, [facility] CPT-4: 13938 07/18/2017 ([id number]) 67424 EST. P ATIENT, LEVEL IV Diagnosis: Essential (primary) hypertension[ICD10: I10] Diagnosis: Type 2 diabetes mellitus without complications[ICD10: E11.9] Diagnosis: Hypothyroidism, unspecified[ICD10: E03.9] Diagnosis: Actinic keratosis[ICD10: L57.0] Irlanda Roberson MD, [facility] CPT- 4: 45106 01/17/2017 ([id number]) 28365 EST. P ATIENT, LEVEL III Diagnosis: Essential (primary) hypertension[ICD10: I10] Diagnosis: Mixed hyperlipidemia[ICD10: E78.2] Diagnosis: Type 2 diabetes mellitus without complications[ICD10: E11.9] Diagnosis: Actinic keratosis[ICD10: L57.0] Irlanda Roberson MD, [facility] CPT- 4: 75582 07/19/2016 ([id number]) 59110 EST. P ATIENT, LEVEL IV Diagnosis: Essential (primary) hypertension[ICD10: I10] Diagnosis: Type 2 diabetes mellitus without complications[ICD10: E11.9] Diagnosis: Mixed hyperlipidemia[ICD10: E78.2] Renita Roberson MD, [facility] CPT- 4: 30654 01/19/2016 [id number] EST. PATIENT, LEVEL IV Diagnosis: Essential (primary) hypertension[ICD10: I10] Diagnosis: Type 2 diabetes mellitus without complications[ICD10: E11.9] Marielle Roberson MD, [facility] CPT-4: 46077 07/22/2015 ([id number]) 68033 EST. P ATIENT, LEVEL III Diagnosis: Essential (primary) hypertension[ICD10: I10] Diagnosis: Actinic keratosis[ICD10: L57.0] Diagnosis: Personal history of diseases of the skin and subcutaneous tissue[ICD10: Z87.2] Renita Roberson MD, [facility] CPT-4: 76589 01/13/2015 ([id number]) 28794 EST. P ATIENT, LEVEL IV Diagnosis: Essential (primary) hypertension[ICD10: I10] Diagnosis: Other abnormal glucose[ICD10: R73.09] Renita Roberson MD, [facility] CPT-4: 88371 12/03/2014 ([id number]) 87351 EST. P ATIENT, LEVEL IV Diagnosis: ESSENTIAL HYPERTENSION[ICD9: 401.9] Diagnosis: Benign paroxysmal positional vertigo[ICD9: 386.11] Renita Roberson MD, C CPT-4: 61413 06/04/2014 ([id number]) OFFICE VISI T, [facility] - LEVEL 4 Diagnosis: ESSENTIAL HYPERTENSION[ICD9: 401.9] Diagnosis: Wrist pain, chronic[ICD9: 719.43] Diagnosis: Benign paroxysmal positional vertigo[ICD9: 386.11] Renita Roberson MD, C CPT-4: 13900 12/10/2013 Plan of Care Planned Activity Notes C odes Status Date Patient Education: Patient Medication Summary Completed 08/14/2018 Care Plan: Comp Metabolic Pending 08/14/2018 Care Plan: Cbc With Differential Pending 08/14/2018 Care Plan: Tsh Pending 08/14/2018 Care Plan: Free T4 Pending 08/14/2018 Care Plan: %Hba1C FABI C : 23307-8 Pending 08/14/2018 Appointment: Renita Roberson WPtel: [address] [place], [place] [phone] (15 min) Moderate 07/17/2018 Visit Plan: Sinusitis [...] allergy spray. 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 Call if not improved after thorough healing. 05/30/2018 Appointment: Ren[phone] [id number] (15 min) Moderate 05/30/2018 Patient Education: Patient Medication Summary Completed 05/30/2018 Patient Education: Cholesterol Management Completed 05/30/2018 Visit Plan: Essential tremor - incr ease the requip to 0.25mg - 1.5 pills twice daily x 4 days then increase to 0.5mg (two pills) twice daily - I sent the new RX to the [facility] - you can call the pharmacy when you are ready to chicken picker this higher dose. 04/18/2018 Appointment: Ren[facility]erson [phone] [id number] (15 min) Moderate 04/18/2018 Patient Education: Patient [...] home. 03/13/2018 Appointment: Ren[facility] Rob[id number] (15 min) Moderate 03/13/2018 Patient Education: Patient Medication Summary Completed 03/13/2018 Patient Education: Hypertension Completed 03/13/2018 Visit Plan: Diabetes Mellitus - con trolled [...] thorough healing. 01/16/2018 Appointment: [id number] (15 min) Moderate 01/16/2018 Patient Education: Patient [...] office 07/18/2017 Appointment: Irlanda Huerta WPtel: [phone] [facility] [phone] (30 min) Complex 07/18/2017 Patient Education: Patient [...] office 01/17/2017 Appointment: [phone] ([facility] min) Complex 01/17/2017 Patient Education: Patient [...] nose 07/19/2016 Appointment: Irlanda Huerta WPtel: [phone] [facility] [phone] (30 min) [facility] 07/19/2016 Patient Education: Patient Medication Summary Completed 07/19/2016 Patient Education: Obesity Completed 07/19/2016 Patient Education: Patient Medication Summary Completed 07/14/2016 Appointment: Marielle Brush WPtel: [phone] [facility] [address] [facility] - Annual Wellness Visit 01/28/2016 Appointment: Irlanda Huerta WPtel: [phone] [facility] [phone] [facility] - Annual Wellness Visit 01/26/2016 Visit Plan: [...] dications. 01/19/2016 Appointment: Renita Roberson WPtel: [phone] [facility] (15 min) Moderate 01/19/2016 Patient Education: Patient [...] right scalp 01/13/2015 Appointment: Ren[facility]: [id number] (15 min) Moderate 01/13/2015 Patient Education: Patient [...] with metformin 12/03/2014 Appointment: [id number] Follow up 12/03/2014 Patient Education: Patient Medication [...] interventions. 06/04/2014 Appointment: Ren[facility] Roberson [facility]el: [phone] [id number] Follow up 06/04/2014 Patient Education: Patient Medication Summary Completed 06/04/2014 Patient Education: Hypertension Completed 06/04/2014 Care Plan: Referral Order SNOMED-CT : [id number] Ordered 06/04/2014 Visit Plan: Hypertension - well [...] Starr. 12/10/2013 Appointment: Renita Roberson WPtel: [phone] [facility] bringing in new pt paperwork New Patient 12/10/2013 Patient Education: Patient Medication Summary Completed 12/10/2013 Patient Education: Hypertension Completed 12/10/2013 Referral: Don Rodriguez WPtel: [phone] [facility] [place] Referral Appointment Requested Instructions Comment increase the requip to 0.25mg - 1.5 pills twice daily x 4 days then increase to 0.5mg (two pills) twice daily - I sent the new RX to the [facility] - you can call the pharmacy when you are ready to chicken picker this higher dose. . Essential tremor - increase the requip to 0.25mg - 1.5 pills twice daily x 4 days then increase to 0.5mg (two pills) twice daily - I sent the new RX to the [facility] - you can call the pharmacy when you are ready to chicken picker this higher dose. . Diabetes Mellitus [...] new cholesterol medication - in TWO WEEKS chicken picker Qunol - coenzyme q10 - it [...] new cholesterol medication - in TWO WEEKS chicken picker Qunol - coenzyme q10 - it [...]
--- OUTSIDE RECORDS SUMMARY | 2019-06-22 15:19 | XMS REPORT | CCD ---
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 Assembler Name Role Phone PP Unavailable CCM Unavailable Summary Purpose Interface Exchange Insurance Providers Payer name Policy type / Coverage type Covered libertarian ID Effective Begin Date Effective End Date WPS Medicare Part B Medicare Part B [id number] Unknown [facility] icare Part B [id number] Un known Family history Father Diagnosis Age At Onset Hypertension Unknown Brother Diagnosis Age At Onset Coronary Artery Disease Unknown Cancer Unknown Hypertension Unknown Mother Diagnosis Age At Onset Hypertension Unknown Social History Social History Element Codes Description Effective Dates Marital status Unknown M arried 12/10/2013 Number of children Unknown 2 12/10/2013 Employment Unknown Retir ed 12/10/[address]: 9935009 Former smoker quit 1980 12/10/[address]: 249439555 Never drinks alcohol 12/10/2013 Allergies, Adverse Reactions, [...] Codes Condition Status Onset Date Resolved Date Other acute sinusitis ICD-9: 461.8 ICD-10: J01.80 [...] 9: 729.1 ICD-10: M79.18 Active 05/30/2018 Unknown Essential (primary) hypertension ICD-9: 401.9 ICD-10: I10 Active 12/10/2013 Unknown Sciatica Unknown Active 01/16/2018 Unknow n Lumbago with sciatic a, right side ICD-9: 724.3 ICD-10: M54.41 Active 01/16/2018 Unknown Type 2 diabetes glenn itus without complications ICD-9: 250.00 ICD-10: E11.9 Active 01/18/2016 Unknown Hypothyroidism, unsp ecified ICD-9: 244.9 ICD-10: E03.9 Active 01/17/2017 Unknown Hypothryroidism Unknown Active 01/17/2017 Unknow n [...] Condition Codes Effectiv e Dates Condition Status Other acute sinusitis ICD-9: 461.8 ICD-10: J01.80 06/28/2018 Active Other allergic rhinitis ICD-9: 477.8 ICD-10: J30.89 06/28/2018 Active Actinic keratosis ICD-9: 702.0 ICD-10: L57.0 01/12/2015 Active Essential (primary) hypertension ICD-9: 401.1 ICD-10: I10 05/30/2018 Active Essential tremor ICD-9: 333.1 ICD-10: G25.0 03/13/2018 Active Mixed hyperlipidemia ICD-9: 272.2 ICD-10: E78.2 01/18/2016 Active Myalgia, other site ICD- 9: 729.1 ICD-10: M79.18 05/30/2018 Active Essential (primary) hypertension ICD-9: 401.9 ICD-10: I10 12/10/2013 Active Sciatica Unknown 01/16/2018 Active Lumbago with sciatic a, right side ICD-9: 724.3 ICD-10: M54.41 01/16/2018 Active Type 2 diabetes glenn itus without complications ICD-9: 250.00 ICD-10: E11.9 01/18/2016 Active Hypothyroidism, unsp ecified ICD-9: 244.9 ICD-10: E03.9 01/17/2017 Active Hypothryroidism Unknown 01/17/2017 Active Diabetes Unknown [...] 40 mg/mL darrian pension for injection RxNorm: 0642520 Milliliter(s) Inj 06/28/2018 06/28/2018 In active Keflex 500 mg capsule RxNorm: 190534 1 Capsule(s) PO TID 06/28/2018 07/07/2018 Active atorvastatin 10 mg t ablet RxNorm: 863060 1 Tablet(s) PO QHS 05/30/2018 05/24/2019 Active amlodipine 10 mg tablet RxNorm: 615843 1 Tablet(s) PO daily by Dr. Jade 05/30/2018 12/25/2018 Ac tive Requip 0.5 mg tablet RxNorm: 438811 1 Tablet(s) PO BID morning and early remi felecia 04/30/2018 11/25/2018 Ac tive he just filled a requip 0.25mg rx - he w ill double his meds then call when he needs this filled metformin ER 500 mg tablet,extended release 24hr RxNorm: 6541858 Tablet(s) TAKE ONE TABLET BY MOUTH TWICE DAILY 04/30/2018 No Stop Date Active Requip 0.5 mg tablet RxNorm: 768100 1 Tablet(s) PO BID morning and early remi felecia 04/18/2018 04/29/2018 Inactive he just filled a requip 0.25mg rx - he w ill double his meds then call when he needs this filled amlodipine 5 mg tablet RxNorm: 241359 1 Tablet(s) PO daily by Dr. Jade 03/13/2018 05/29/2018 In active Requip 0.25 mg tablet RxNorm: 910754 1 Tablet(s) PO BID morning and early remi felecia 03/13/2018 04/17/2018 Inactive triamcinolone aceton andrews 0.1 % topical cream RxNorm: 3184380 1 Application TOP BI D as needed 01/16/2018 05/15/2018 Inactive he would like 3 15 gram tub es triamcinolone aceton andrews 0.1 % topical cream RxNorm: 0098470 1 Application TOP BI D as needed 01/16/2018 01/15/2018 Inactive he would like 3 15 gram tub es amlodipine 10 mg tablet RxNorm: 242803 1 Tablet(s) PO daily by Dr. Jade 01/16/2018 03/12/2018 In active metformin ER 500 mg tablet,extended release 24hr RxNorm: 4717760 TAKE ONE TABLET BY MOUTH TWICE DAILY 12/04/2017 04/29/2018 Inactive metformin ER 500 mg tablet,extended release 24hr RxNorm: 7483769 TAKE ONE TABLET BY MOUTH TWICE DAILY 03/22/2017 12/03/2017 Inactive Tylenol PM Extra Str ength 25 mg-500 mg tablet RxNorm: 4798117 1 Tablet(s) PO QHS 01/17/2017 No Stop Date Active triamcinolone aceton andrews 0.1 % topical cream RxNorm: 2145835 1 Application TOP BI D as needed 01/17/2017 05/16/2017 Inactive metformin ER 500 mg tablet,extended release 24hr RxNorm: 087043 TAKE ONE TABLET BY MOUTH TWICE DAILY 09/27/2016 03/21/2017 Inactive triamcinolone aceton andrews 0.1 % topical cream RxNorm: 3419854 1 Application TOP BI D as needed 07/19/2016 09/16/2016 Inactive metformin ER 500 mg tablet,extended release 24hr RxNorm: 188053 1 Tablet(s) PO BID 08/19/2015 09/26/2016 In active metformin ER 500 mg tablet,extended release 24hr RxNorm: 828380 1 Tablet(s) PO BID 08/14/2015 08/18/2015 In active metformin ER 500 mg tablet,extended release 24hr RxNorm: 737365 1 Tablet(s) PO BID 04/09/2015 08/13/2015 In active triamcinolone aceton andrews 0.1 % topical cream RxNorm: 2296915 1 Application TOP BI D as needed 01/13/2015 07/18/2016 Inactive Flonase Allergy Reli ef 50 mcg/actuation nasal spray,suspension RxNorm: 1 Noble NASAL BID 12/03/2014 01/12/2015 Inactive triamcinolone aceton andrews 0.1 % topical cream RxNorm: 6904951 1 Application TOP BI D as needed 06/04/2014 01/12/2015 Inactive metformin ER 500 mg tablet,extended release 24hr RxNorm: 109338 1 Tablet(s) PO BID 03/05/2014 04/08/2015 In active multivitamin oral RxNorm: 02946 oral No Start Date Active Vitamin B-12 oral RxNorm: 68591 oral No Start Date Active Baby Aspirin 81 mg c hewable tablet RxNorm: 276125 1 Tablet(s) PO daily No Start Date Active Inderal LA 160 mg ca psule,extended release RxNorm: 715696 1 Capsule(s) PO daily No Start Date Active amlodipine 5 mg tablet RxNorm: 450715 1 Tablet(s) PO daily No Start Date 01/15/2018 Inactive multivitamin tablet RxNorm: 1 Tablet(s) PO daily No Start Date 01/16/2017 Inactive tramadol 50 mg tablet RxNorm: 621711 1 Tablet(s) PO TID No Start Date 07/21/2015 Inactive Tylenol PM Extra Str ength 25 mg-500 mg tablet RxNorm: 3690677 2 Tablet(s) PO QHS No Start Date 01/16/2017 Inactive metformin ER 500 mg tablet,extended release 24hr RxNorm: 400430 1 Tablet(s) PO BID No Start Date 03/04/2014 Inactive Methotrexate (Anti-R heumatic) 2.5 mg tablet RxNorm: 253187 8 Tablet(s) PO one ti me per week No Start Date 07/21/2015 Inactive Protonix 40 mg table t,delayed release RxNorm: 144274 1 Tablet(s) PO daily No Start Date 12/02/2014 Inactive Vitamin B-12 1,000 m cg tablet RxNorm: 430268 1 Tablet(s) PO daily No Start Date 01/16/2017 Inactive simvastatin 10 mg ta blet RxNorm: 249390 1 Tablet(s) PO daily No Start Date 05/29/2018 Inactive propranolol ER 120 m g capsule,24 hr,extended release RxNorm: 588031 1 Capsule(s) PO daily No Start Date 07/17/2017 Inactive Medication Administered Medication Codes Instruc tions Start Date Status Kenalog 40 mg/mL suspension for injection RxNorm: 6921212 Milliliter 06/28/2018 Ac tive Immunizations Vaccine Codes Date Status Influenza CVX: 141 11/27 completed Assessments Condition Codes Effectiv e Dates Other allergic rhinitis ICD-10: J30. 89 ICD-9: 477.8 06/28/2018 Other acute sinusitis ICD-10: J01.80 ICD-9: 461.8 06/28/2018 Actinic keratosis ICD-10: L57.0 ICD-9: 702.0 05/30/2018 Myalgia, other site ICD-10: M79.18 ICD-9: 729.1 05/30/2018 Mixed hyperlipidemia ICD-10: E78.2 ICD-9: 272.2 05/30/2018 Essential (primary) hypertension ICD -10: I10 ICD-9: 401.1 05/30/2018 Essential tremor ICD-10: G25.0 ICD-9: 333.1 05/30/2018 Essential (primary) hypertension ICD -10: I10 ICD-9: 401.9 03/13/2018 Lumbago with sciatica, right side IC D-10: M54.41 ICD-9: 724.3 01/16/2018 Type 2 diabetes mellitus without complications ICD-10: E11.9 ICD-9: 250.00 01/16/2018 Hypothyroidism, unspecified ICD-10: E03.9 ICD-9: 244.9 01/10/2018 Personal history of diseases of the skin [...] 31.0 pg 01/11/2018 Cbc With Differential Ord2 Letcher% 8.8 % 01/11/2018 Cbc With Differential Ord2 [...] 2.90 K/ul 01/11/2018 Cbc With Differential Ord2 Letcher ABS# 0.8 K/ul 01/11/2018 Cbc With Differential Ord2 Eos ABS# 0.3 K/ul 01/11/2018 Cbc With Differential Ord2 Baso ABS# 0.1 K/ul 01/11/2018 %Hba1C Pba899 % HbA1c 40932-0 6.0 % 01/11/2018 %Hba1C Egj026 Gluc Ave 126 mg/dL 01/11/2018 Tsh Ord6 TSH (3rd IS) 5.07 uIU/mL 01/11/2018 Lipid Ord30 CHOL 131 mg/dL 01/11/2018 Lipid Ord30 HDL 36.0 mg/dl 01/11/2018 Lipid Ord30 TRIG 59 mg/dL 01/11/2018 Lipid Ord30 LDL 83 mg/dL 01/11/2018 Lipid Ord30 C/HDL 3.6 Ratio 01/11/2018 Free T4 Saj033 FREE T4 1.00 ng/dL 01/11/2018 Comp Metabolic Nam588 NA 141 mEq/L 01/11/2018 Comp Metabolic Tzf772 K 4.1 mEq/L 01/11/2018 Comp Metabolic Fcf583 CL 104 mEq/L 01/11/2018 Comp Metabolic Kwa648 CO2 30.0 mEq/L 01/11/2018 Comp Metabolic Oly125 AN ION GAP 11 01/11/2018 Comp Metabolic Bdt081 GL UCOSE 131 mg/dL 01/11/2018 Comp Metabolic Zbu136 Cr eat 0.9 mg/dL 01/11/2018 Comp Metabolic Qby145 eG FR 86 ml/min/1.73m2 01/11 Comp Metabolic Hnt309 BUN 10 mg/dL 01/11/2018 Comp Metabolic Jnx652 B/ C Ratio 11.2 Ratio 01/11/2018 Comp Metabolic Uzt399 CA LCIUM 9.1 mg/dL 01/11/2018 Comp Metabolic Oxn600 AL K PHOS 49 U/L 01/11/2018 Comp Metabolic Bcv028 T(SGOT) 14 U/L 01/11/2018 Comp Metabolic Rgq223 AL T(SGPT) 13 U/L 01/11/2018 Comp Metabolic Qzc725 BI LI T 0.6 mg/dL 01/11/2018 Comp Metabolic Vcl839 AL BUMIN 4.0 g/dL 01/11/2018 Comp Metabolic Ler180 TP RO 6.4 g/dL 01/11/2018 Comp Metabolic Sjd267 GL OB 2.4 g/dL 01/11/2018 Comp Metabolic Cgb027 A/ G Ratio 1.6 Ratio 01/11/2018 Comp Metabolic Bru252 Os mo 282 mOsmo 01/11/2018 %Hba1C Rhq570 % HbA1c 26634-3 6.2 % 07/14/2017 %Hba1C Vos338 Gluc Ave 131 mg/dL 07/14/2017 Cbc With [...] 31.1 pg 07/14/2017 Cbc With Differential Ord2 Letcher% 8.5 % 07/14/2017 Cbc With Differential Ord2 [...] 2.76 K/ul 07/14/2017 Cbc With Differential Ord2 Letcher ABS# 0.8 K/ul 07/14/2017 Cbc With Differential Ord2 Eos ABS# 0.4 K/ul 07/14/2017 Cbc With Differential Ord2 Baso ABS# 0.0 K/ul 07/14/2017 Free T4 Grb397 FREE T4 0.97 ng/dL 07/14/2017 Tsh Ord6 TSH (3rd IS) 4.46 uIU/mL 07/14/2017 Comp Metabolic Fmy245 NA 140 mEq/L 07/14/2017 Comp Metabolic Jvy381 K 4.2 mEq/L 07/14/2017 Comp Metabolic Vuv792 CL 103 mEq/L 07/14/2017 Comp Metabolic Zuv002 CO2 29.0 mEq/L 07/14/2017 Comp Metabolic Kts287 AN ION GAP 12 07/14/2017 Comp Metabolic Ass604 GL UCOSE 127 mg/dL 07/14/2017 Comp Metabolic Xmt305 Cr eat 0.9 mg/dL 07/14/2017 Comp Metabolic Vqe622 eG FR 90 ml/min/1.73m2 07/14 Comp Metabolic Aqh056 BUN 8 mg/dL 07/14/2017 Comp Metabolic Ecv298 B/ C Ratio 9.3 Ratio 07/14/2017 Comp Metabolic Ebm092 CA LCIUM 9.5 mg/dL 07/14/2017 Comp Metabolic Maz944 AL K PHOS 77 U/L 07/14/2017 Comp Metabolic Dxc996 T(SGOT) 18 U/L 07/14/2017 Comp Metabolic Rei103 AL T(SGPT) 20 U/L 07/14/2017 Comp Metabolic Upg024 BI LI T 0.7 mg/dL 07/14/2017 Comp Metabolic Bba596 AL BUMIN 4.4 g/dL 07/14/2017 Comp Metabolic Xlt362 TP RO 6.9 g/dL 07/14/2017 Comp Metabolic Sbn852 GL OB 2.6 g/dL 07/14/2017 Comp Metabolic Gre267 A/ G Ratio 1.7 Ratio 07/14/2017 Comp Metabolic Uiq581 Os mo 279 mOsmo 07/14/2017 Free T4 Vru513 FREE T4 0.97 ng/dL 04/21/2017 Tsh Ord6 TSH (3rd IS) 4.44 uIU/mL 04/21/2017 %Hba1C Uvx654 % HbA1c 29245-6 6.3 % 01/06/2017 %Hba1C Ers528 Gluc Ave 134 mg/dL 01/06/2017 Cbc With [...] 31.3 pg 01/06/2017 Cbc With Differential Ord2 Letcher% 9.2 % 01/06/2017 Cbc With Differential Ord2 [...] 3.60 K/ul 01/06/2017 Cbc With Differential Ord2 Letcher ABS# 0.9 K/ul 01/06/2017 Cbc With Differential Ord2 Eos ABS# 0.3 K/ul 01/06/2017 Cbc With Differential Ord2 Baso ABS# 0.0 K/ul 01/06/2017 Lipid Ord30 CHOL 134 mg/dL 01/06/2017 Lipid Ord30 HDL 35.0 mg/dl 01/06/2017 Lipid Ord30 TRIG 111 mg/dL 01/06/2017 Lipid Ord30 LDL 77 mg/dL 01/06/2017 Lipid Ord30 C/HDL 3.8 Ratio 01/06/2017 Comp Metabolic Ccz430 NA 139 mEq/L 01/06/2017 Comp Metabolic Npd021 K 4.2 mEq/L 01/06/2017 Comp Metabolic Lzb926 CL 103 mEq/L 01/06/2017 Comp Metabolic Cof109 CO2 29.0 mEq/L 01/06/2017 Comp Metabolic Srx836 AN ION GAP 11 01/06/2017 Comp Metabolic Wlu692 GL UCOSE 121 mg/dL 01/06/2017 Comp Metabolic Gfn702 Cr eat 0.8 mg/dL 01/06/2017 Comp Metabolic Fgs454 eG FR 101 ml/min/1.73m2 12/28 Comp Metabolic Ieg986 BUN 9 mg/dL 01/06/2017 Comp Metabolic Lar418 B/ C Ratio 11.5 Ratio 01/06/2017 Comp Metabolic Vkt014 CA LCIUM 9.3 mg/dL 01/06/2017 Comp Metabolic Ukn118 AL K PHOS 48 U/L 01/06/2017 Comp Metabolic Njd610 T(SGOT) 15 U/L 01/06/2017 Comp Metabolic Bgw314 AL T(SGPT) 17 U/L 01/06/2017 Comp Metabolic Jwr156 BI LI T 0.6 mg/dL 01/06/2017 Comp Metabolic Jvp519 AL BUMIN 4.0 g/dL 01/06/2017 Comp Metabolic Ked916 TP RO 6.4 g/dL 01/06/2017 Comp Metabolic Zex613 GL OB 2.4 g/dL 01/06/2017 Comp Metabolic Hyv183 A/ G Ratio 1.7 Ratio 01/06/2017 Comp Metabolic Egu128 Os mo 277 mOsmo 01/06/2017 Tsh Ord6 [...] 30.9 pg 07/14/2016 Cbc With Differential Ord2 Letcher% 8.4 % 07/14/2016 Cbc With Differential Ord2 [...] 2.34 K/ul 07/14/2016 Cbc With Differential Ord2 Letcher ABS# 0.7 K/ul 07/14/2016 Cbc With Differential Ord2 Eos ABS# 0.4 K/ul 07/14/2016 Cbc With Differential Ord2 Baso ABS# 0.1 K/ul 07/14/2016 Comp Metabolic Prr051 NA 139 mEq/L 07/14/2016 Comp Metabolic Asw798 K 4.4 mEq/L 07/14/2016 Comp Metabolic Qbm472 CL 103 mEq/L 07/14/2016 Comp Metabolic Ubt973 CO2 31.0 mEq/L 07/14/2016 Comp Metabolic Jwz749 AN ION GAP 9 07/14/2016 Comp Metabolic Vqc481 GL UCOSE 109 mg/dL 07/14/2016 Comp Metabolic Nmb993 Cr eat 0.9 mg/dL 07/14/2016 Comp Metabolic Opv940 eG FR 88 ml/min/1.73m2 07/14 Comp Metabolic Gak246 BUN 12 mg/dL 07/14/2016 Comp Metabolic Zwa639 B/ C Ratio 13.6 Ratio 07/14/2016 Comp Metabolic Vfe014 CA LCIUM 8.9 mg/dL 07/14/2016 Comp Metabolic Tgg711 AL K PHOS 42 U/L 07/14/2016 Comp Metabolic Ude350 T(SGOT) 14 U/L 07/14/2016 Comp Metabolic Xrn666 AL T(SGPT) 13 U/L 07/14/2016 Comp Metabolic Dov838 BI LI T 0.6 mg/dL 07/14/2016 Comp Metabolic Crv236 AL BUMIN 3.8 g/dL 07/14/2016 Comp Metabolic Tzs523 TP RO 6.2 g/dL 07/14/2016 Comp Metabolic Mjb430 GL OB 2.4 g/dL 07/14/2016 Comp Metabolic Hve982 A/ G Ratio 1.6 Ratio 07/14/2016 Comp Metabolic Kyj386 Os mo 278 mOsmo 07/14/2016 %Hba1C Tex773 % HbA1c 10535-1 5.8 % 07/14/2016 %Hba1C Tat982 Gluc Ave 120 mg/dL 07/14/2016 Cbc With [...] 31.3 pg 01/15/2016 Cbc With Differential Ord2 Letcher% 8.4 % 01/15/2016 Cbc With Differential Ord2 [...] 2.53 K/ul 01/15/2016 Cbc With Differential Ord2 Letcher ABS# 0.8 K/ul 01/15/2016 Cbc With Differential Ord2 Eos ABS# 0.5 K/ul 01/15/2016 Cbc With Differential Ord2 Baso ABS# 0.1 K/ul 01/15/2016 Lipid Ord30 CHOL 119 mg/dL 01/15/2016 Lipid Ord30 HDL 32.0 mg/dl 01/15/2016 Lipid Ord30 TRIG 120 mg/dL 01/15/2016 Lipid Ord30 LDL 63 mg/dL 01/15/2016 Lipid Ord30 C/HDL 3.7 Ratio 01/15/2016 %Hba1C Ymm530 % HbA1c 02147-0 5.9 % 01/15/2016 %Hba1C Rsa484 Gluc Ave 123 mg/dL 01/15/2016 Tsh Ord6 hTSH II 2.98 uIU/mL 01/15/2016 Comp Metabolic Doa365 NA 137 mEq/L 01/15/2016 Comp Metabolic Kgr073 K 3.9 mEq/L 01/15/2016 Comp Metabolic Tip989 CL 104 mEq/L 01/15/2016 Comp Metabolic Jsl430 CO2 26.0 mEq/L 01/15/2016 Comp Metabolic Qzm589 AN ION GAP 11 01/15/2016 Comp Metabolic Ege067 GL UCOSE 113 mg/dL 01/15/2016 Comp Metabolic Mag277 Cr eat 0.8 mg/dL 01/15/2016 Comp Metabolic Piw200 eG FR 101 ml/min/1.73m2 12/28 Comp Metabolic Eix397 BUN 10 mg/dL 01/15/2016 Comp Metabolic Gdu881 B/ C Ratio 12.8 Ratio 01/15/2016 Comp Metabolic Mlq326 CA LCIUM 9.1 mg/dL 01/15/2016 Comp Metabolic Nqi405 AL K PHOS 51 U/L 01/15/2016 Comp Metabolic Kgv570 T(SGOT) 16 U/L 01/15/2016 Comp Metabolic Xke061 AL T(SGPT) 17 U/L 01/15/2016 Comp Metabolic Tnu568 BI LI T 0.7 mg/dL 01/15/2016 Comp Metabolic Qnw508 AL BUMIN 3.9 g/dL 01/15/2016 Comp Metabolic Ofs674 TP RO 6.4 g/dL 01/15/2016 Comp Metabolic Clv441 GL OB 2.5 g/dL 01/15/2016 Comp Metabolic Vqx427 A/ G Ratio 1.5 Ratio 01/15/2016 Comp Metabolic Zpw182 Os mo 274 mOsmo 01/15/2016 Cbc With [...] 31.2 pg 07/10/2015 Cbc With Differential Ord2 Letcher% 8.5 % 07/10/2015 Cbc With Differential Ord2 [...] 2.86 K/ul 07/10/2015 Cbc With Differential Ord2 Letcher ABS# 0.7 K/ul 07/10/2015 Cbc With Differential Ord2 Eos ABS# 0.3 K/ul 07/10/2015 Cbc With Differential Ord2 Baso ABS# 0.0 K/ul 07/10/2015 Cbc With Differential Ord2 New Analyzer Notice Please note new ref ranges s tarting 03-11-2015 due to implemntation of new five part differential hematolgy analyzer. 07/10/2015 Tsh Ord6 hTSH II 3.50 uIU/mL 07/10/2015 Comp Metabolic Cxk452 NA 138 mEq/L 07/10/2015 Comp Metabolic Ihv652 K 4.5 mEq/L 07/10/2015 Comp Metabolic Qlh669 CL 102 mEq/L 07/10/2015 Comp Metabolic Czw839 CO2 29.0 mEq/L 07/10/2015 Comp Metabolic Yiw857 AN ION GAP 12 07/10/2015 Comp Metabolic Aoj601 GL UCOSE 105 mg/dL 07/10/2015 Comp Metabolic Ufq907 Cr eat 0.9 mg/dL 07/10/2015 Comp Metabolic Dox651 eG FR 85 ml/min/1.73m2 07/09 Comp Metabolic Cle336 BUN 12 mg/dL 07/10/2015 Comp Metabolic Fby772 B/ C Ratio 13.2 Ratio 07/10/2015 Comp Metabolic Sjv623 CA LCIUM 9.1 mg/dL 07/10/2015 Comp Metabolic Ssq204 AL K PHOS 43 U/L 07/10/2015 Comp Metabolic Ahh808 T(SGOT) 21 U/L 07/10/2015 Comp Metabolic Ndd654 AL T(SGPT) 21 U/L 07/10/2015 Comp Metabolic Ooo643 BI LI T 0.5 mg/dL 07/10/2015 Comp Metabolic Zob702 AL BUMIN 4.0 g/dL 07/10/2015 Comp Metabolic Sko471 TP RO 6.4 g/dL 07/10/2015 Comp Metabolic Vpt259 GL OB 2.4 g/dL 07/10/2015 Comp Metabolic Lrw728 A/ G Ratio 1.6 Ratio 07/10/2015 Comp Metabolic Afp004 Os mo 276 mOsmo 07/10/2015 Lipid Ord30 CHOL 121 mg/dL 07/10/2015 Lipid Ord30 HDL 33.0 mg/dl 07/10/2015 Lipid Ord30 TRIG 99 mg/dL 07/10/2015 Lipid Ord30 LDL 68 mg/dL 07/10/2015 Lipid Ord30 C/HDL 3.7 Ratio 07/10/2015 %Hba1C Qig811 % HbA1c 40986-3 6.0 % 07/10/2015 %Hba1C Lcm664 Gluc Ave 126 mg/dL 07/10/2015 Comp Metabolic Fnp664 NA 136 mEq/L 12/04/2014 Comp Metabolic Lci507 K 4.1 mEq/L 12/04/2014 Comp Metabolic Ovs384 CL 103 mEq/L 12/04/2014 Comp Metabolic Xhb363 CO2 28.0 mEq/L 12/04/2014 Comp Metabolic Who338 AN ION GAP 9 12/04/2014 Comp Metabolic Sxs171 GL UCOSE 118 mg/dL 12/04/2014 Comp Metabolic Jfo808 Cr eat 0.9 mg/dL 12/04/2014 Comp Metabolic Rbc748 eG FR 88 ml/min/1.73m2 12/04 Comp Metabolic Kqv025 BUN 10 mg/dL 12/04/2014 Comp Metabolic Ird693 B/ C Ratio 11.4 Ratio 12/04/2014 Comp Metabolic Ebn642 CA LCIUM 9.4 mg/dL 12/04/2014 Comp Metabolic Mbv231 AL K PHOS 50 U/L 12/04/2014 Comp Metabolic Kth166 T(SGOT) 17 U/L 12/04/2014 Comp Metabolic Vhj060 AL T(SGPT) 17 U/L 12/04/2014 Comp Metabolic Rpz658 BI LI T 0.7 mg/dL 12/04/2014 Comp Metabolic Whk339 AL BUMIN 4.1 g/dL 12/04/2014 Comp Metabolic Uwe946 TP RO 6.4 g/dL 12/04/2014 Comp Metabolic Nqp550 GL OB 2.3 g/dL 12/04/2014 Comp Metabolic Vun152 A/ G Ratio 1.8 Ratio 12/04/2014 Comp Metabolic Tqb688 Os mo 272 mOsmo 12/04/2014 Tsh Ord6 hTSH II 4.00 uIU/mL 12/04/2014 %Hba1C Zps299 % HbA1c 79776-8 6.2 % 12/04/2014 %Hba1C Tyr834 Gluc Ave 131 mg/dL 12/04/2014 Cbc With [...] Procedure Codes Date THER/PROPH/DIAG INJ SC/IM CPT-4: 13503 06/28/2018 TRIAMCINOLONE ACET I [place] NOS CPT-4: J3301 06/28/2018 DESTRUCT PREMALG LESION CPT-4: 33845 05/30/2018 DESTRUCT PREMALG LES 2-14 CPT-4: 05/30/2018 DESTRUCT PREMALG LES 2-14 CPT-4: 30656 01/16/2018 DESTRUCT PREMALG LESION CPT-4: 52629 01/16/2018 DESTRUCT PREMALG LESION CPT-4: 20354 07/19/2016 DESTRUCT PREMALG LES 2-14 CPT-4: 68899 07/19/2016 DESTRUCT PREMALG LESION CPT-4: 85369 01/13/2015 DESTRUCT PREMALG LES 2-14 CPT-4: 32044 01/13/2015 Vital Signs Date Vital 06/28/2018 BMI: 32.4 Code: 09103-3 Heart Rate 1: 70 bpm Height: 5'11" SpO2: 96% Weight: 232 lbs 05/30/2018 Blood Pressure 1: 140/68 Code: 8480-6 BMI: 32.9 Code: 53762-7 Heart Rate 1: 54 bpm Height: 5'11" SpO2: 96% Weight: 236 lbs 04/18/2018 Blood Pressure 1: 140/72 Code: 8480-6 BMI: 32.8 Code: 02121-1 Heart Rate 1: 52 bpm Height: 5'11" SpO2: 97% Weight: 235 lbs 03/13/2018 Blood Pressure 1: 150/80 Code: 8480-6 BMI: 32.5 Code: 39031-5 Heart Rate 1: 77 bpm Height: 5'11" SpO2: 97% Weight: 233 lbs 01/16/2018 Blood Pressure 1: 138/72 Code: 8480-6 BMI: 32.5 Code: 73314-1 Heart Rate 1: 54 bpm Height: 5'11" SpO2: 95% Weight: 233 lbs 07/18/2017 Blood Pressure 1: 138/68 Code: 8480-6 BMI: 32.2 Code: 24001-9 Heart Rate 1: 59 bpm Height: 5'11" SpO2: 96% Weight: 231 lbs 01/17/2017 Blood Pressure 1: 140/78 Code: 8480-6 BMI: 32.5 Code: 79001-6 Heart Rate 1: 52 bpm Height: 5'11" SpO2: 98% Weight: 233 lbs 07/19/2016 Blood Pressure 1: 140/74 Code: 8480-6 BMI: 32.4 Code: 31489-6 Heart Rate 1: 57 bpm Height: 5'11" SpO2: 95% Weight: 232 lbs 01/19/2016 Blood Pressure 1: 132/60 Code: 8480-6 BMI: 32.9 Code: 04016-9 Heart Rate 1: 58 bpm Height: 5'11" SpO2: 96% Weight: 236 lbs 07/22/2015 Blood Pressure 1: 158/78 Code: 8480-6 Blood Pressure 1: 150/78 Code: 8480-6 BMI: 31.9 Code: 16010-1 Heart Rate 1: 55 bpm Height: 5'11" SpO2: 98% Weight: 229 lbs 01/13/2015 Blood Pressure 1: 146/74 Code: 8480-6 BMI: 32.2 Code: 12356-0 Heart Rate 1: 63 bpm Height: 5'11" SpO2: 97% Weight: 231 lbs 12/03/2014 Blood Pressure 1: 142/78 Code: 8480-6 Blood Pressure 1: 128/75 Code: 8480-6 BMI: 32.4 Code: 47186-2 Heart Rate 1: 57 bpm Height: 5'11" SpO2: 95% Weight: 232 lbs 06/04/2014 Blood Pressure 1: 138/78 Code: 8480-6 BMI: 32.5 Code: 59872-5 Heart Rate 1: 56 bpm Height: 5'11" SpO2: 96% Weight: 233 lbs 12/10/2013 Blood Pressure 1: 122/78 Code: 8480-6 BMI: 32.2 Code: 91953-3 Heart Rate 1: 76 bpm Height: 5'11" [...] ies lightheadedness 03/13/2018 None 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 PATIENT, LEVEL IV Diagnosis: Other acute sinusitis[ICD10: J01.80] Diagnosis: Other allergic rhinitis[ICD10: J30.89] Marielle Roberson MD, [facility] CPT-4: 96840 06/28/2018 ([id number]) [id number] EST. P ATIENT, LEVEL IV Diagnosis: Essential (primary) hypertension[ICD10: I10] Diagnosis: Essential tremor[ICD10: G25.0] Diagnosis: Mixed hyperlipidemia[ICD10: E78.2] Diagnosis: Myalgia, other site[ICD10: M79.18] Renita Roberson MD, [facility] CPT- 4: 61601 05/30/2018 ([id number]) 14294 EST. P ATIENT, LEVEL III Diagnosis: Essential tremor[ICD10: G25.0] Renita Roberson MD, [facility] CPT-4: 60091 04/18/2018 ([id number]) 38819 EST. P ATIENT, LEVEL IV Diagnosis: Essential tremor[ICD10: G25.0] Diagnosis: Essential (primary) hypertension[ICD10: I10] Renita Roberson MD, [facility] CPT-4: 57190 03/13/2018 ([id number]) 36212 EST. P ATIENT, LEVEL IV Diagnosis: Type 2 diabetes mellitus without complications[ICD10: E11.9] Diagnosis: Essential (primary) hypertension[ICD10: I10] Diagnosis: Actinic keratosis[ICD10: L57.0] Diagnosis: Lumbago with sciatica, right side[ICD10: M54.41] Renita Roberson MD, [facility] CPT-4: 57123 01/16/2018 ([id number]) 25273 EST. P ATIENT, LEVEL IV Diagnosis: Essential (primary) hypertension[ICD10: I10] Diagnosis: Type 2 diabetes mellitus without complications[ICD10: E11.9] Diagnosis: Actinic keratosis[ICD10: L57.0] Diagnosis: Mixed hyperlipidemia[ICD10: E78.2] Irlanda Roberson MD, [facility] CPT-4: 27915 07/18/2017 ([id number]) 33621 EST. P ATIENT, LEVEL IV Diagnosis: Essential (primary) hypertension[ICD10: I10] Diagnosis: Type 2 diabetes mellitus without complications[ICD10: E11.9] Diagnosis: Hypothyroidism, unspecified[ICD10: E03.9] Diagnosis: Actinic keratosis[ICD10: L57.0] Irlanda Roberson MD, [facility] CPT- 4: 22410 01/17/2017 ([id number]) 31636 EST. P ATIENT, LEVEL III Diagnosis: Essential (primary) hypertension[ICD10: I10] Diagnosis: Mixed hyperlipidemia[ICD10: E78.2] Diagnosis: Type 2 diabetes mellitus without complications[ICD10: E11.9] Diagnosis: Actinic keratosis[ICD10: L57.0] Irlanda Roberson MD, [facility] CPT- 4: 61110 07/19/2016 ([id number]) 87917 EST. P ATIENT, LEVEL IV Diagnosis: Essential (primary) hypertension[ICD10: I10] Diagnosis: Type 2 diabetes mellitus without complications[ICD10: E11.9] Diagnosis: Mixed hyperlipidemia[ICD10: E78.2] Renita Roberson MD, [facility] CPT- 4: 18349 01/19/2016 04315 EST. PATIENT, LEVEL IV Diagnosis: Essential (primary) hypertension[ICD10: I10] Diagnosis: Type 2 diabetes mellitus without complications[ICD10: E11.9] Marielle Roberson MD, [facility] CPT-4: 47487 07/22/2015 ([id number]) 81229 EST. P ATIENT, LEVEL III Diagnosis: Essential (primary) hypertension[ICD10: I10] Diagnosis: Actinic keratosis[ICD10: L57.0] Diagnosis: Personal history of diseases of the skin and subcutaneous tissue[ICD10: Z87.2] Renita Roberson MD, [facility] CPT-4: 27118 01/13/2015 ([id number]) 76756 EST. P ATIENT, LEVEL IV Diagnosis: Essential (primary) hypertension[ICD10: I10] Diagnosis: Other abnormal glucose[ICD10: R73.09] Renita Roberson MD, [facility] CPT-4: 22136 12/03/2014 ([id number]) 72520 EST. P ATIENT, LEVEL IV Diagnosis: ESSENTIAL HYPERTENSION[ICD9: 401.9] Diagnosis: Benign paroxysmal positional vertigo[ICD9: 386.11] Renita Roberson MD, C CPT-4: 22781 06/04/2014 ([id number]) OFFICE [facility] - LEVEL 4 Diagnosis: ESSENTIAL HYPERTENSION[ICD9: 401.9] Diagnosis: Wrist pain, chronic[ICD9: 719.43] Diagnosis: Benign paroxysmal positional vertigo[ICD9: 386.11] Renita Roberson MD, C CPT-4: 00535 12/10/2013 Plan of Care Planned Activity Notes C odes Status Date Visit Plan: Sinusitis - Pt has acut [...] in the nasal steroid allergy spray. 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 Call if not improved after thorough healing. 05/30/2018 Appointment: Renita Roberson WPtel: 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 04/18/2018 Appointment: Renita Roberson WPtel: [facility] (15 min) Moderate 04/18/2018 Patient Education: [...] at home. 03/13/2018 Appointment: Renita Roberson WPtel: [facility] (15 min) Moderate 03/13/2018 Patient Education: [...] healing. 01/16/2018 [phone] ([facility] min) Moderate 01/16/2018 Patient Education: [...] office 07/18/2017 [phone] (30 min) Complex 07/18/2017 Patient Education: Patient [...] office 01/17/2017 Appointment: [phone] (30 min) Complex 01/17/2017 Patient Education: Patient [...] hands, right ear, and nose 07/19/2016 Appointment: Bradley Irlanda WPtel: [phone] [phone] (30 min) Complex 07/19/2016 Patient Education: Patient Medication Summary Completed 07/19/2016 Patient Education: Obesity Completed 07/19/2016 Patient Education: Patient Medication Summary Completed 07/14/2016 Appointment: Marielle Brush WPtel: [phone] [phone] [facility] - Annual Wellness Visit 01/28/2016 Appointment: Irlanda Huerta WPtel: [phone] [phone] [facility] - Annual Wellness Visit 01/26/2016 Visit Plan: Diabetes Mellitus - con marioed [...] dications. 01/19/2016 Appointment: [phone] [facility] (15 min) Moderate 01/19/2016 Patient Education: Patient [...] scalp 01/13/2015 App[facility]ment: [phone] [facility] (15 min) Moderate 01/13/2015 Patient Education: [...] with metformin 12/03/2014 App[facility]ment: [facility] [phone] [facility] Follow up 12/03/2014 Patient Education: Patient [...] instructions/medication interventions. 06/04/2014 Appointment: Renita Roberson WPtel: [facility] Follow up 06/04/2014 Patient Education: Patient Medication Summary Completed 06/04/2014 Patient Education: Hypertension Completed 06/04/2014 Care Plan: Referral Order SNOMED-CT : [id number] Ordered 06/04/2014 Visit Plan: Hypertension - well [...] Dr. Starr. 12/10/2013 Appointment: Renita Roberson WPtel: 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 . 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 . 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
--- OUTSIDE RECORDS SUMMARY | 2019-06-22 15:20 | XMS REPORT | CCD ---
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 Role Phone PP Unavailable CCM Unavailable Summary Purpose Interface Exchange Insurance Providers Payer name Policy type / Coverage type Covered green party ID Effective Begin Date Effective End Date WPS Medicare Part B Medicare Part B [id number] Unknown [facility] icare Part B [id number] Un known Family history Father Diagnosis Age At Onset Hypertension Unknown Brother Diagnosis Age At Onset Coronary Artery Disease Unknown Cancer Unknown Hypertension Unknown Mother Diagnosis Age At Onset Hypertension Unknown Social History Social History Element Codes Description Effective Dates Marital status Unknown M arried 12/10/2013 Number of children Unknown 2 12/10/2013 Employment Unknown Retir ed 12/10/[address]: 2595047 Former smoker quit 1980 12/10/[address]: 650208789 Never drinks alcohol 12/10/2013 Allergies, Adverse Reactions, [...] 40 mg/mL darrian pension for injection RxNorm: 2893437 Milliliter(s) Inj 06/28/2018 06/28/2018 In active Keflex 500 mg capsule RxNorm: 672661 1 Capsule(s) PO TID 06/28/2018 07/07/2018 Active atorvastatin 10 mg t ablet RxNorm: 103791 1 Tablet(s) PO QHS 05/30/2018 05/24/2019 Active amlodipine 10 mg tablet RxNorm: 577718 1 Tablet(s) PO daily by Dr. Jade 05/30/2018 12/25/2018 Ac tive Requip 0.5 mg tablet RxNorm: 861555 1 Tablet(s) PO BID morning and early remi felecia 04/30/2018 11/25/2018 Ac tive he just filled a requip 0.25mg rx - he w ill double his meds then call when he needs this filled metformin ER 500 mg tablet,extended release 24hr RxNorm: 7513258 Tablet(s) TAKE ONE TABLET BY MOUTH TWICE DAILY 04/30/2018 No Stop Date Active Requip 0.5 mg tablet RxNorm: 214241 1 Tablet(s) PO BID morning and early remi felecia 04/18/2018 04/29/2018 Inactive he just filled a requip 0.25mg rx - he w ill double his meds then call when he needs this filled amlodipine 5 mg tablet RxNorm: 744587 1 Tablet(s) PO daily by Dr. Jade 03/13/2018 05/29/2018 In active Requip 0.25 mg tablet RxNorm: 382351 1 Tablet(s) PO BID morning and early remi felecia 03/13/2018 04/17/2018 Inactive triamcinolone aceton andrews 0.1 % topical cream RxNorm: 3861393 1 Application TOP BI D as needed 01/16/2018 05/15/2018 Inactive he would like 3 15 gram tub es triamcinolone aceton andrews 0.1 % topical cream RxNorm: 6060854 1 Application TOP BI D as needed 01/16/2018 01/15/2018 Inactive he would like 3 15 gram tub es amlodipine 10 mg tablet RxNorm: 073130 1 Tablet(s) PO daily by Dr. Jade 01/16/2018 03/12/2018 In active metformin ER 500 mg tablet,extended release 24hr RxNorm: 1873539 TAKE ONE TABLET BY MOUTH TWICE DAILY 12/04/2017 04/29/2018 Inactive metformin ER 500 mg tablet,extended release 24hr RxNorm: 5152084 TAKE ONE TABLET BY MOUTH TWICE DAILY 03/22/2017 12/03/2017 Inactive Tylenol PM Extra Str ength 25 mg-500 mg tablet RxNorm: 9781244 1 Tablet(s) PO QHS 01/17/2017 No Stop Date Active triamcinolone aceton andrews 0.1 % topical cream RxNorm: 4261882 1 Application TOP BI D as needed 01/17/2017 05/16/2017 Inactive metformin ER 500 mg tablet,extended release 24hr RxNorm: 544429 TAKE ONE TABLET BY MOUTH TWICE DAILY 09/27/2016 03/21/2017 Inactive triamcinolone aceton andrews 0.1 % topical cream RxNorm: 3531315 1 Application TOP BI D as needed 07/19/2016 09/16/2016 Inactive metformin ER 500 mg tablet,extended release 24hr RxNorm: 592610 1 Tablet(s) PO BID 08/19/2015 09/26/2016 In active metformin ER 500 mg tablet,extended release 24hr RxNorm: 886357 1 Tablet(s) PO BID 08/14/2015 08/18/2015 In active metformin ER 500 mg tablet,extended release 24hr RxNorm: 914633 1 Tablet(s) PO BID 04/09/2015 08/13/2015 In active triamcinolone aceton andrews 0.1 % topical cream RxNorm: 0156921 1 Application TOP BI D as needed 01/13/2015 07/18/2016 Inactive Flonase Allergy Reli ef 50 mcg/actuation nasal spray,suspension RxNorm: 1 [place] NASAL BID 12/03/2014 01/12/2015 Inactive triamcinolone aceton andrews 0.1 % topical cream RxNorm: 2749428 1 Application TOP BI D as needed 06/04/2014 01/12/2015 Inactive metformin ER 500 mg tablet,extended release 24hr RxNorm: 664433 1 Tablet(s) PO BID 03/05/2014 04/08/2015 In active multivitamin oral RxNorm: 76354 oral No Start Date Active Vitamin B-12 oral RxNorm: 32542 oral No Start Date Active Baby Aspirin 81 mg c hewable tablet RxNorm: 476109 1 Tablet(s) PO daily No Start Date Active Inderal LA 160 mg ca psule,extended release RxNorm: 911494 1 Capsule(s) PO daily No Start Date Active amlodipine 5 mg tablet RxNorm: 171619 1 Tablet(s) PO daily No Start Date 01/15/2018 Inactive multivitamin tablet RxNorm: 1 Tablet(s) PO daily No Start Date 01/16/2017 Inactive tramadol 50 mg tablet RxNorm: 590639 1 Tablet(s) PO TID No Start Date 07/21/2015 Inactive Tylenol PM Extra Str ength 25 mg-500 mg tablet RxNorm: 3109333 2 Tablet(s) PO QHS No Start Date 01/16/2017 Inactive metformin ER 500 mg tablet,extended release 24hr RxNorm: 701139 1 Tablet(s) PO BID No Start Date 03/04/2014 Inactive Methotrexate (Anti-R heumatic) 2.5 mg tablet RxNorm: 630032 8 Tablet(s) PO one ti me per week No Start Date 07/21/2015 Inactive Protonix 40 mg table t,delayed release RxNorm: 621595 1 Tablet(s) PO daily No Start Date 12/02/2014 Inactive Vitamin B-12 1,000 m cg tablet RxNorm: 441502 1 Tablet(s) PO daily No Start Date 01/16/2017 Inactive simvastatin 10 mg ta blet RxNorm: 299045 1 Tablet(s) PO daily No Start Date 05/29/2018 Inactive propranolol ER 120 m g capsule,24 hr,extended release RxNorm: 588410 1 Capsule(s) PO daily No Start Date 07/17/2017 Inactive Medication Administered Medication Codes Instruc tions Start Date Status Kenalog 40 mg/mL suspension for injection RxNorm: 6529179 Milliliter 06/28/2018 Ac tive Immunizations Vaccine Codes [...] 31.0 pg 01/11/2018 Cbc With Differential Ord2 [place]% 8.8 % 01/11/2018 Cbc With Differential Ord2 [...] 2.90 K/ul 01/11/2018 Cbc With Differential Ord2 [place] ABS# 0.8 K/ul 01/11/2018 Cbc With Differential Ord2 Eos ABS# 0.3 K/ul 01/11/2018 Cbc With Differential Ord2 Baso ABS# 0.1 K/ul 01/11/2018 %Hba1C Kzj366 % HbA1c 25261-5 6.0 % 01/11/2018 %Hba1C Iwu729 Gluc Ave 126 mg/dL 01/11/2018 Tsh Ord6 TSH (3rd IS) 5.07 uIU/mL 01/11/2018 Lipid Ord30 CHOL 131 mg/dL 01/11/2018 Lipid Ord30 HDL 36.0 mg/dl 01/11/2018 Lipid Ord30 TRIG 59 mg/dL 01/11/2018 Lipid Ord30 LDL 83 mg/dL 01/11/2018 Lipid Ord30 C/HDL 3.6 Ratio 01/11/2018 Free T4 Yqg752 FREE T4 1.00 ng/dL 01/11/2018 Comp Metabolic Yki565 NA 141 mEq/L 01/11/2018 Comp Metabolic Swg312 K 4.1 mEq/L 01/11/2018 Comp Metabolic Dbm232 CL 104 mEq/L 01/11/2018 Comp Metabolic Zfm573 CO2 30.0 mEq/L 01/11/2018 Comp Metabolic Vuf448 AN ION GAP 11 01/11/2018 Comp Metabolic Dfg281 GL UCOSE 131 mg/dL 01/11/2018 Comp Metabolic Jko832 Cr eat 0.9 mg/dL 01/11/2018 Comp Metabolic Tdl798 eG FR 86 ml/min/1.73m2 01/11 Comp Metabolic Fci899 BUN 10 mg/dL 01/11/2018 Comp Metabolic Dip211 B/ C Ratio 11.2 Ratio 01/11/2018 Comp Metabolic Ohp632 CA LCIUM 9.1 mg/dL 01/11/2018 Comp Metabolic Azf258 AL K PHOS 49 U/L 01/11/2018 Comp Metabolic Sth450 T(SGOT) 14 U/L 01/11/2018 Comp Metabolic Bjm483 AL T(SGPT) 13 U/L 01/11/2018 Comp Metabolic Frk924 BI LI T 0.6 mg/dL 01/11/2018 Comp Metabolic Qon742 AL BUMIN 4.0 g/dL 01/11/2018 Comp Metabolic Ghn688 TP RO 6.4 g/dL 01/11/2018 Comp Metabolic Ggg597 GL OB 2.4 g/dL 01/11/2018 Comp Metabolic Exk001 A/ G Ratio 1.6 Ratio 01/11/2018 Comp Metabolic Stu636 Os mo 282 mOsmo 01/11/2018 %Hba1C Viz246 % HbA1c 67711-5 6.2 % 07/14/2017 %Hba1C Imi158 Gluc Ave 131 mg/dL 07/14/2017 Cbc With [...] 31.1 pg 07/14/2017 Cbc With Differential Ord2 [place]% 8.5 % 07/14/2017 Cbc With Differential Ord2 [...] 2.76 K/ul 07/14/2017 Cbc With Differential Ord2 [place] ABS# 0.8 K/ul 07/14/2017 Cbc With Differential Ord2 Eos ABS# 0.4 K/ul 07/14/2017 Cbc With Differential Ord2 Baso ABS# 0.0 K/ul 07/14/2017 Free T4 Rdr934 FREE T4 0.97 ng/dL 07/14/2017 Tsh Ord6 TSH (3rd IS) 4.46 uIU/mL 07/14/2017 Comp Metabolic Apk191 NA 140 mEq/L 07/14/2017 Comp Metabolic Nug683 K 4.2 mEq/L 07/14/2017 Comp Metabolic Kzw118 CL 103 mEq/L 07/14/2017 Comp Metabolic Evg945 CO2 29.0 mEq/L 07/14/2017 Comp Metabolic Unl588 AN ION GAP 12 07/14/2017 Comp Metabolic Ntq940 GL UCOSE 127 mg/dL 07/14/2017 Comp Metabolic Jys984 Cr eat 0.9 mg/dL 07/14/2017 Comp Metabolic Wwf379 eG FR 90 ml/min/1.73m2 07/14 Comp Metabolic Ddp923 BUN 8 mg/dL 07/14/2017 Comp Metabolic Kqd869 B/ C Ratio 9.3 Ratio 07/14/2017 Comp Metabolic Nxu652 CA LCIUM 9.5 mg/dL 07/14/2017 Comp Metabolic Hgp086 AL K PHOS 77 U/L 07/14/2017 Comp Metabolic Aba577 T(SGOT) 18 U/L 07/14/2017 Comp Metabolic Pvu474 AL T(SGPT) 20 U/L 07/14/2017 Comp Metabolic Etb127 BI LI T 0.7 mg/dL 07/14/2017 Comp Metabolic Beo807 AL BUMIN 4.4 g/dL 07/14/2017 Comp Metabolic Gfn332 TP RO 6.9 g/dL 07/14/2017 Comp Metabolic Bji611 GL OB 2.6 g/dL 07/14/2017 Comp Metabolic Kvh990 A/ G Ratio 1.7 Ratio 07/14/2017 Comp Metabolic Ykp165 Os mo 279 mOsmo 07/14/2017 Free T4 Zsn145 FREE T4 0.97 ng/dL 04/21/2017 Tsh Ord6 TSH (3rd IS) 4.44 uIU/mL 04/21/2017 %Hba1C Iln301 % HbA1c 81196-1 6.3 % 01/06/2017 %Hba1C Wgu795 Gluc Ave 134 mg/dL 01/06/2017 Cbc With [...] 31.3 pg 01/06/2017 Cbc With Differential Ord2 [place]% 9.2 % 01/06/2017 Cbc With Differential Ord2 [...] 3.60 K/ul 01/06/2017 Cbc With Differential Ord2 [place] ABS# 0.9 K/ul 01/06/2017 Cbc With Differential Ord2 Eos ABS# 0.3 K/ul 01/06/2017 Cbc With Differential Ord2 Baso ABS# 0.0 K/ul 01/06/2017 Lipid Ord30 CHOL 134 mg/dL 01/06/2017 Lipid Ord30 HDL 35.0 mg/dl 01/06/2017 Lipid Ord30 TRIG 111 mg/dL 01/06/2017 Lipid Ord30 LDL 77 mg/dL 01/06/2017 Lipid Ord30 C/HDL 3.8 Ratio 01/06/2017 Comp Metabolic Ruz747 NA 139 mEq/L 01/06/2017 Comp Metabolic Srv451 K 4.2 mEq/L 01/06/2017 Comp Metabolic Pga564 CL 103 mEq/L 01/06/2017 Comp Metabolic Mvj247 CO2 29.0 mEq/L 01/06/2017 Comp Metabolic Cuf575 AN ION GAP 11 01/06/2017 Comp Metabolic Vzy783 GL UCOSE 121 mg/dL 01/06/2017 Comp Metabolic Ldn962 Cr eat 0.8 mg/dL 01/06/2017 Comp Metabolic Mza955 eG FR 101 ml/min/1.73m2 12/28 Comp Metabolic Ipl338 BUN 9 mg/dL 01/06/2017 Comp Metabolic Hxg461 B/ C Ratio 11.5 Ratio 01/06/2017 Comp Metabolic Mbw952 CA LCIUM 9.3 mg/dL 01/06/2017 Comp Metabolic Xuq122 AL K PHOS 48 U/L 01/06/2017 Comp Metabolic Cpi499 T(SGOT) 15 U/L 01/06/2017 Comp Metabolic Qto044 AL T(SGPT) 17 U/L 01/06/2017 Comp Metabolic Nxd679 BI LI T 0.6 mg/dL 01/06/2017 Comp Metabolic Ekw867 AL BUMIN 4.0 g/dL 01/06/2017 Comp Metabolic Mqb543 TP RO 6.4 g/dL 01/06/2017 Comp Metabolic Cim196 GL OB 2.4 g/dL 01/06/2017 Comp Metabolic Xlv766 A/ G Ratio 1.7 Ratio 01/06/2017 Comp Metabolic Abl959 Os mo 277 mOsmo 01/06/2017 Tsh Ord6 [...] 30.9 pg 07/14/2016 Cbc With Differential Ord2 [place]% 8.4 % 07/14/2016 Cbc With Differential Ord2 [...] 2.34 K/ul 07/14/2016 Cbc With Differential Ord2 [place] ABS# 0.7 K/ul 07/14/2016 Cbc With Differential Ord2 Eos ABS# 0.4 K/ul 07/14/2016 Cbc With Differential Ord2 Baso ABS# 0.1 K/ul 07/14/2016 Comp Metabolic Bhx885 NA 139 mEq/L 07/14/2016 Comp Metabolic Jyu023 K 4.4 mEq/L 07/14/2016 Comp Metabolic Fkr887 CL 103 mEq/L 07/14/2016 Comp Metabolic Gli036 CO2 31.0 mEq/L 07/14/2016 Comp Metabolic Rmp727 AN ION GAP 9 07/14/2016 Comp Metabolic Xhd336 GL UCOSE 109 mg/dL 07/14/2016 Comp Metabolic Psq508 Cr eat 0.9 mg/dL 07/14/2016 Comp Metabolic Cbl237 eG FR 88 ml/min/1.73m2 07/14 Comp Metabolic Bue970 BUN 12 mg/dL 07/14/2016 Comp Metabolic Pgy597 B/ C Ratio 13.6 Ratio 07/14/2016 Comp Metabolic Fwf502 CA LCIUM 8.9 mg/dL 07/14/2016 Comp Metabolic Zma480 AL K PHOS 42 U/L 07/14/2016 Comp Metabolic Kbr249 T(SGOT) 14 U/L 07/14/2016 Comp Metabolic Yui480 AL T(SGPT) 13 U/L 07/14/2016 Comp Metabolic Nld308 BI LI T 0.6 mg/dL 07/14/2016 Comp Metabolic Gja819 AL BUMIN 3.8 g/dL 07/14/2016 Comp Metabolic Pfb079 TP RO 6.2 g/dL 07/14/2016 Comp Metabolic Iof356 GL OB 2.4 g/dL 07/14/2016 Comp Metabolic Wan958 A/ G Ratio 1.6 Ratio 07/14/2016 Comp Metabolic Uaw157 Os mo 278 mOsmo 07/14/2016 %Hba1C Wih397 % HbA1c 88755-8 5.8 % 07/14/2016 %Hba1C Lsc139 Gluc Ave 120 mg/dL 07/14/2016 Cbc With [...] 31.3 pg 01/15/2016 Cbc With Differential Ord2 [place]% 8.4 % 01/15/2016 Cbc With Differential Ord2 [...] 2.53 K/ul 01/15/2016 Cbc With Differential Ord2 [place] ABS# 0.8 K/ul 01/15/2016 Cbc With Differential Ord2 Eos ABS# 0.5 K/ul 01/15/2016 Cbc With Differential Ord2 Baso ABS# 0.1 K/ul 01/15/2016 Lipid Ord30 CHOL 119 mg/dL 01/15/2016 Lipid Ord30 HDL 32.0 mg/dl 01/15/2016 Lipid Ord30 TRIG 120 mg/dL 01/15/2016 Lipid Ord30 LDL 63 mg/dL 01/15/2016 Lipid Ord30 C/HDL 3.7 Ratio 01/15/2016 %Hba1C Lwc492 % HbA1c 71759-9 5.9 % 01/15/2016 %Hba1C Xvw132 Gluc Ave 123 mg/dL 01/15/2016 Tsh Ord6 hTSH II 2.98 uIU/mL 01/15/2016 Comp Metabolic Sfq742 NA 137 mEq/L 01/15/2016 Comp Metabolic Jjh126 K 3.9 mEq/L 01/15/2016 Comp Metabolic Ytc071 CL 104 mEq/L 01/15/2016 Comp Metabolic Cng805 CO2 26.0 mEq/L 01/15/2016 Comp Metabolic Cfy181 AN ION GAP 11 01/15/2016 Comp Metabolic Qrp264 GL UCOSE 113 mg/dL 01/15/2016 Comp Metabolic Qde581 Cr eat 0.8 mg/dL 01/15/2016 Comp Metabolic Yux280 eG FR 101 ml/min/1.73m2 12/28 Comp Metabolic Bwx951 BUN 10 mg/dL 01/15/2016 Comp Metabolic Esu094 B/ C Ratio 12.8 Ratio 01/15/2016 Comp Metabolic Jok761 CA LCIUM 9.1 mg/dL 01/15/2016 Comp Metabolic Sqm620 AL K PHOS 51 U/L 01/15/2016 Comp Metabolic Uba879 T(SGOT) 16 U/L 01/15/2016 Comp Metabolic Hua484 AL T(SGPT) 17 U/L 01/15/2016 Comp Metabolic Qcx166 BI LI T 0.7 mg/dL 01/15/2016 Comp Metabolic Rbb698 AL BUMIN 3.9 g/dL 01/15/2016 Comp Metabolic Cxh480 TP RO 6.4 g/dL 01/15/2016 Comp Metabolic Nic001 GL OB 2.5 g/dL 01/15/2016 Comp Metabolic Nuv753 A/ G Ratio 1.5 Ratio 01/15/2016 Comp Metabolic Wig318 Os mo 274 mOsmo 01/15/2016 Cbc With [...] 31.2 pg 07/10/2015 Cbc With Differential Ord2 [place]% 8.5 % 07/10/2015 Cbc With Differential Ord2 [...] 2.86 K/ul 07/10/2015 Cbc With Differential Ord2 [place] ABS# 0.7 K/ul 07/10/2015 Cbc With Differential Ord2 Eos ABS# 0.3 K/ul 07/10/2015 Cbc With Differential Ord2 Baso ABS# 0.0 K/ul 07/10/2015 Cbc With Differential Ord2 New Analyzer Notice Please note new ref ranges s tarting 03-11-2015 due to implemntation of new five part differential hematolgy analyzer. 07/10/2015 Tsh Ord6 hTSH II 3.50 uIU/mL 07/10/2015 Comp Metabolic Edv140 NA 138 mEq/L 07/10/2015 Comp Metabolic Aiy165 K 4.5 mEq/L 07/10/2015 Comp Metabolic Tuq567 CL 102 mEq/L 07/10/2015 Comp Metabolic Muh477 CO2 29.0 mEq/L 07/10/2015 Comp Metabolic Weq093 AN ION GAP 12 07/10/2015 Comp Metabolic Hwx672 GL UCOSE 105 mg/dL 07/10/2015 Comp Metabolic Wqm273 Cr eat 0.9 mg/dL 07/10/2015 Comp Metabolic Sow965 eG FR 85 ml/min/1.73m2 07/09 Comp Metabolic Npl588 BUN 12 mg/dL 07/10/2015 Comp Metabolic Ond823 B/ C Ratio 13.2 Ratio 07/10/2015 Comp Metabolic Qql381 CA LCIUM 9.1 mg/dL 07/10/2015 Comp Metabolic Gxo398 AL K PHOS 43 U/L 07/10/2015 Comp Metabolic Wza375 T(SGOT) 21 U/L 07/10/2015 Comp Metabolic Gfs584 AL T(SGPT) 21 U/L 07/10/2015 Comp Metabolic Vvt768 BI LI T 0.5 mg/dL 07/10/2015 Comp Metabolic Urr592 AL BUMIN 4.0 g/dL 07/10/2015 Comp Metabolic Ndd878 TP RO 6.4 g/dL 07/10/2015 Comp Metabolic Yhc816 GL OB 2.4 g/dL 07/10/2015 Comp Metabolic Qda443 A/ G Ratio 1.6 Ratio 07/10/2015 Comp Metabolic Dnm675 Os mo 276 mOsmo 07/10/2015 Lipid Ord30 CHOL 121 mg/dL 07/10/2015 Lipid Ord30 HDL 33.0 mg/dl 07/10/2015 Lipid Ord30 TRIG 99 mg/dL 07/10/2015 Lipid Ord30 LDL 68 mg/dL 07/10/2015 Lipid Ord30 C/HDL 3.7 Ratio 07/10/2015 %Hba1C Fvf564 % HbA1c 17943-1 6.0 % 07/10/2015 %Hba1C Koc828 Gluc Ave 126 mg/dL 07/10/2015 Comp Metabolic Vih245 NA 136 mEq/L 12/04/2014 Comp Metabolic Ftj084 K 4.1 mEq/L 12/04/2014 Comp Metabolic Prv930 CL 103 mEq/L 12/04/2014 Comp Metabolic Mqp533 CO2 28.0 mEq/L 12/04/2014 Comp Metabolic Sgw194 AN ION GAP 9 12/04/2014 Comp Metabolic Qoy708 GL UCOSE 118 mg/dL 12/04/2014 Comp Metabolic Tdc484 Cr eat 0.9 mg/dL 12/04/2014 Comp Metabolic Mbs249 eG FR 88 ml/min/1.73m2 12/04 Comp Metabolic Jrr809 BUN 10 mg/dL 12/04/2014 Comp Metabolic Kxc380 B/ C Ratio 11.4 Ratio 12/04/2014 Comp Metabolic Khc752 CA LCIUM 9.4 mg/dL 12/04/2014 Comp Metabolic Xix979 AL K PHOS 50 U/L 12/04/2014 Comp Metabolic Vgk437 T(SGOT) 17 U/L 12/04/2014 Comp Metabolic Bwp177 AL T(SGPT) 17 U/L 12/04/2014 Comp Metabolic Ipn497 BI LI T 0.7 mg/dL 12/04/2014 Comp Metabolic Cpq625 AL BUMIN 4.1 g/dL 12/04/2014 Comp Metabolic Jab114 TP RO 6.4 g/dL 12/04/2014 Comp Metabolic Aur917 GL OB 2.3 g/dL 12/04/2014 Comp Metabolic Kiy530 A/ G Ratio 1.8 Ratio 12/04/2014 Comp Metabolic Xbw963 Os mo 272 mOsmo 12/04/2014 Tsh Ord6 hTSH II 4.00 uIU/mL 12/04/2014 %Hba1C Zwn577 % HbA1c 57678-3 6.2 % 12/04/2014 %Hba1C Xra174 Gluc Ave 131 mg/dL 12/04/2014 Cbc With [...] Procedure Codes Date THER/PROPH/DIAG INJ SC/IM CPT-4: 71691 06/28/2018 TRIAMCINOLONE ACET I [place] NOS CPT-4: J3301 06/28/2018 DESTRUCT PREMALG LESION CPT-4: 18756 05/30/2018 DESTRUCT PREMALG LES 2-14 CPT-4: 05/30/2018 DESTRUCT PREMALG LES 2-14 CPT-4: 50436 01/16/2018 DESTRUCT PREMALG LESION CPT-4: 22860 01/16/2018 DESTRUCT PREMALG LESION CPT-4: 28693 07/19/2016 DESTRUCT PREMALG LES 2-14 CPT-4: 37188 07/19/2016 DESTRUCT PREMALG LESION CPT-4: 17808 01/13/2015 DESTRUCT PREMALG LES 2-14 CPT-4: 32984 01/13/2015 Vital Signs Date Vital 06/28/2018 BMI: 32.4 Code: 32453-0 Heart Rate 1: 70 bpm Height: 5'11" SpO2: 96% Weight: 232 lbs 05/30/2018 Blood Pressure 1: 140/68 Code: 8480-6 BMI: 32.9 Code: 83206-7 Heart Rate 1: 54 bpm Height: 5'11" SpO2: 96% Weight: 236 lbs 04/18/2018 Blood Pressure 1: 140/72 Code: 8480-6 BMI: 32.8 Code: 15061-3 Heart Rate 1: 52 bpm Height: 5'11" SpO2: 97% Weight: 235 lbs 03/13/2018 Blood Pressure 1: 150/80 Code: 8480-6 BMI: 32.5 Code: 55775-7 Heart Rate 1: 77 bpm Height: 5'11" SpO2: 97% Weight: 233 lbs 01/16/2018 Blood Pressure 1: 138/72 Code: 8480-6 BMI: 32.5 Code: 73138-4 Heart Rate 1: 54 bpm Height: 5'11" SpO2: 95% Weight: 233 lbs 07/18/2017 Blood Pressure 1: 138/68 Code: 8480-6 BMI: 32.2 Code: 70583-5 Heart Rate 1: 59 bpm Height: 5'11" SpO2: 96% Weight: 231 lbs 01/17/2017 Blood Pressure 1: 140/78 Code: 8480-6 BMI: 32.5 Code: 48386-9 Heart Rate 1: 52 bpm Height: 5'11" SpO2: 98% Weight: 233 lbs 07/19/2016 Blood Pressure 1: 140/74 Code: 8480-6 BMI: 32.4 Code: 98460-2 Heart Rate 1: 57 bpm Height: 5'11" SpO2: 95% Weight: 232 lbs 01/19/2016 Blood Pressure 1: 132/60 Code: 8480-6 BMI: 32.9 Code: 60268-8 Heart Rate 1: 58 bpm Height: 5'11" SpO2: 96% Weight: 236 lbs 07/22/2015 Blood Pressure 1: 158/78 Code: 8480-6 Blood Pressure 1: 150/78 Code: 8480-6 BMI: 31.9 Code: 40798-3 Heart Rate 1: 55 bpm Height: 5'11" SpO2: 98% Weight: 229 lbs 01/13/2015 Blood Pressure 1: 146/74 Code: 8480-6 BMI: 32.2 Code: 94562-3 Heart Rate 1: 63 bpm Height: 5'11" SpO2: 97% Weight: 231 lbs 12/03/2014 Blood Pressure 1: 142/78 Code: 8480-6 Blood Pressure 1: 128/75 Code: 8480-6 BMI: 32.4 Code: 70968-2 Heart Rate 1: 57 bpm Height: 5'11" SpO2: 95% Weight: 232 lbs 06/04/2014 Blood Pressure 1: 138/78 Code: 8480-6 BMI: 32.5 Code: 13908-9 Heart Rate 1: 56 bpm Height: 5'11" SpO2: 96% Weight: 233 lbs 12/10/2013 Blood Pressure 1: 122/78 Code: 8480-6 BMI: 32.2 Code: 53406-8 Heart Rate 1: 76 bpm Height: 5'11" [...] ies lightheadedness 03/13/2018 None 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 PATIENT, LEVEL IV Diagnosis: Other acute sinusitis[ICD10: J01.80] Diagnosis: Other allergic rhinitis[ICD10: J30.89] Marielle Roberson MD, [facility] CPT-4: 18243 06/28/2018 ([id number]) 56657 EST. P ATIENT, LEVEL IV Diagnosis: Essential (primary) hypertension[ICD10: I10] Diagnosis: Essential tremor[ICD10: G25.0] Diagnosis: Mixed hyperlipidemia[ICD10: E78.2] Diagnosis: Myalgia, other site[ICD10: M79.18] Renita Roberson MD, [facility] CPT- 4: 90329 05/30/2018 ([id number]) 72252 EST. P ATIENT, LEVEL III Diagnosis: Essential tremor[ICD10: G25.0] Renita Roberson MD, [facility] CPT-4: 11814 04/18/2018 ([id number]) 19726 EST. P ATIENT, LEVEL IV Diagnosis: Essential tremor[ICD10: G25.0] Diagnosis: Essential (primary) hypertension[ICD10: I10] Renita Roberson MD, [facility] CPT-4: 46466 03/13/2018 ([id number]) 66412 EST. P ATIENT, LEVEL IV Diagnosis: Type 2 diabetes mellitus without complications[ICD10: E11.9] Diagnosis: Essential (primary) hypertension[ICD10: I10] Diagnosis: Actinic keratosis[ICD10: L57.0] Diagnosis: Lumbago with sciatica, right side[ICD10: M54.41] Renita Roberson MD, [facility] CPT-4: 37407 01/16/2018 ([id number]) 54526 EST. P ATIENT, LEVEL IV Diagnosis: Essential (primary) hypertension[ICD10: I10] Diagnosis: Type 2 diabetes mellitus without complications[ICD10: E11.9] Diagnosis: Actinic keratosis[ICD10: L57.0] Diagnosis: Mixed hyperlipidemia[ICD10: E78.2] Irlanda Roberson MD, [facility] CPT-4: 82637 07/18/2017 ([id number]) 68002 EST. P ATIENT, LEVEL IV Diagnosis: Essential (primary) hypertension[ICD10: I10] Diagnosis: Type 2 diabetes mellitus without complications[ICD10: E11.9] Diagnosis: Hypothyroidism, unspecified[ICD10: E03.9] Diagnosis: Actinic keratosis[ICD10: L57.0] Irlanda Roberson MD, [facility] CPT- 4: 88470 01/17/2017 ([id number]) 79873 EST. P ATIENT, LEVEL III Diagnosis: Essential (primary) hypertension[ICD10: I10] Diagnosis: Mixed hyperlipidemia[ICD10: E78.2] Diagnosis: Type 2 diabetes mellitus without complications[ICD10: E11.9] Diagnosis: Actinic keratosis[ICD10: L57.0] Irlanda Roberson MD, [facility] CPT- 4: 82858 07/19/2016 ([id number]) 79827 EST. P ATIENT, LEVEL IV Diagnosis: Essential (primary) hypertension[ICD10: I10] Diagnosis: Type 2 diabetes mellitus without complications[ICD10: E11.9] Diagnosis: Mixed hyperlipidemia[ICD10: E78.2] Renita Roberson MD, [facility] CPT- 4: 08047 01/19/2016 03074 EST. PATIENT, LEVEL IV Diagnosis: Essential (primary) hypertension[ICD10: I10] Diagnosis: Type 2 diabetes mellitus without complications[ICD10: E11.9] Marielle Roberson MD, [facility] CPT-4: 63537 07/22/2015 ([id number]) 87029 EST. P ATIENT, LEVEL III Diagnosis: Essential (primary) hypertension[ICD10: I10] Diagnosis: Actinic keratosis[ICD10: L57.0] Diagnosis: Personal history of diseases of the skin and subcutaneous tissue[ICD10: Z87.2] Renita Roberson MD, [facility] CPT-4: 54552 01/13/2015 ([id number]) [id number] EST. P ATIENT, LEVEL IV Diagnosis: Essential (primary) hypertension[ICD10: I10] Diagnosis: Other abnormal glucose[ICD10: R73.09] Renita Roberson MD, [facility] CPT-4: 25074 12/03/2014 ([id number]) [id number] EST. P ATIENT, LEVEL IV Diagnosis: ESSENTIAL HYPERTENSION[ICD9: 401.9] Diagnosis: Benign paroxysmal positional vertigo[ICD9: 386.11] Renita Roberson MD, C CPT-4: 39713 06/04/2014 ([id number]) OFFICE [facility] - LEVEL 4 Diagnosis: ESSENTIAL HYPERTENSION[ICD9: 401.9] Diagnosis: Wrist pain, chronic[ICD9: 719.43] Diagnosis: Benign paroxysmal positional vertigo[ICD9: 386.11] Renita Roberson MD, C CPT-4: 44129 12/10/2013 Plan of Care Planned Activity Notes [...] new cholesterol medication - in TWO WEEKS worm picker Qunol - coenzyme q10 - it is o magali the counter - start taking this now as it can help to decrease the muscle side effects of the cholesterol medication Actinic Keratosis - treated with cryotherapy x 3, pt advised on how to appropriately care for the lesion. Call if not improved after thorough healing. 05/30/2018 Appointment: Renita Roberson WPtel: [id number] (15 min) Moderate 05/30/2018 Patient Education: Patient Medication Summary Completed 05/30/2018 Patient Education: Cholesterol Management Completed 05/30/2018 Visit Plan: Essential tremor - incr ease the requip to 0.25mg - 1.5 pills twice daily x 4 days then increase to 0.5mg (two pills) twice daily - I sent the new RX to the [facility] - you can call the pharmacy when you are ready to worm picker this higher dose. 04/18/2018 Appointment: Renita Roberson WPtel: [facility]5 [facility] (15 min) Moderate 04/18/2018 Patient Education: [...] at home. 03/13/2018 Appointment: Renita Roberson WPtel: [facility]7 [facility] (15 min) Moderate 03/13/2018 Patient Education: Patient Medication Summary Completed 03/13/2018 Patient Education: Hypertension Completed 03/13/2018 Visit Plan: Diabetes Mellitus - con ojse maria - per recent FSBS reports. I [...] healing. 01/16/2018 [facility]ment[phone] (15 min) Moderate 01/16/2018 Patient Education: [...] office 07/18/2017 [phone] ([facility] min) Complex 07/18/2017 Patient [...] office 01/17/2017 Appointment[phone] ([facility] min) Complex 01/17/2017 Patient [...] and nose 07/19/2016 Appointment: Bradley Irlanda WPtel: [phone] [phone] (30 min) Complex 07/19/2016 Patient Education: Patient Medication Summary Completed 07/19/2016 Patient Education: Obesity Completed 07/19/2016 Patient Education: Patient Medication Summary Completed 07/14/2016 Appointment: Marielle Brush WPtel: [phone] [phone] [facility] - Annual Wellness Visit 01/28/2016 Appointment: Irlanda Huerta WPtel: [phone] [phone] [facility] - Annual Wellness Visit 01/26/2016 Visit [...] dications. 01/19/2016 Appointment: [phone] (15 min) Moderate 01/19/2016 Patient Education: Patient [...] scalp 01/13/2015 Appointment: [phone] (15 min) Moderate 01/13/2015 Patient Education: [...] with metformin 12/03/2014 Appointment: [phone] Follow up 12/03/2014 Patient Education: Patient [...] instructions/medication interventions. 06/04/2014 Appointment: Renita Roberson WPtel: [facility] Follow up 06/04/2014 Patient Education: Patient Medication Summary Completed 06/04/2014 Patient Education: Hypertension Completed 06/04/2014 Care Plan: Referral Order SNOMED-CT : [id number] Ordered 06/04/2014 Visit Plan: Hypertension - well [...] Dr. Starr. 12/10/2013 Appointment: Renita Roberson WPtel: [facility] bringing in new pt paperwork New Patient 12/10/2013 Patient Education: Patient Medication Summary Completed 12/10/2013 Patient Education: Hypertension Completed 12/10/2013 Referral: Don Rodriguez WPtel: [phone] [email or web address] Referral Appointment Requested Instructions Comment increase the requip to 0.25mg - 1.5 pills twice daily x 4 days then increase to 0.5mg (two pills) twice daily - I sent the new RX to the [facility] - you can call the pharmacy when you are ready to worm picker this higher dose. . Essential tremor - increase the requip to 0.25mg - 1.5 pills twice daily x 4 days then increase to 0.5mg (two pills) twice daily - I sent the new RX to the [facility] - you can call the pharmacy when you are ready to worm picker this higher dose. . Diabetes Mellitus [...] new cholesterol medication - in TWO WEEKS worm picker Qunol - coenzyme q10 - it [...] new cholesterol medication - in TWO WEEKS worm picker Qunol - coenzyme q10 - it [...]
--- OUTSIDE RECORDS SUMMARY | 2019-06-22 15:22 | XMS REPORT | CCD ---
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 Name Role Phone PP Unavailable CCM Unavailable Summary Purpose Interface Exchange Insurance Providers Payer name Policy type / Coverage type Covered green party ID Effective Begin Date Effective End Date WPS Medicare Part B Medicare Part B [id number] Unknown [facility] icare Part B [id number] Un known Family history Father Diagnosis Age At Onset Hypertension Unknown Brother Diagnosis Age At Onset Coronary Artery Disease Unknown Cancer Unknown Hypertension Unknown Mother Diagnosis Age At Onset Hypertension Unknown Social History Social History Element Codes Description Effective Dates Marital status Unknown M arried 12/10/2013 Number of children Unknown 2 12/10/2013 Employment Unknown Retir ed 12/10/[address]: 0658608 Former smoker quit 1980 12/10/[address]: 423252748 Never drinks alcohol 12/10/2013 Allergies, Adverse Reactions, [...] Date Stop Date Sta tus Fill Instructions atorvastatin 10 mg t ablet RxNorm: 632861 1 Tablet(s) PO QHS 05/30/2018 05/24/2019 Active amlodipine 10 mg tablet RxNorm: 298334 1 Tablet(s) PO daily by Dr. Jade 05/30/2018 12/25/2018 Ac tive Requip 0.5 mg tablet RxNorm: 184451 1 Tablet(s) PO BID morning and early remi felecia 04/30/2018 11/25/2018 Ac tive he just filled a requip 0.25mg rx - he w ill double his meds then call when he needs this filled metformin ER 500 mg tablet,extended release 24hr RxNorm: 6012348 Tablet(s) TAKE ONE TABLET BY MOUTH TWICE DAILY 04/30/2018 No Stop Date Active Requip 0.5 mg tablet RxNorm: 869465 1 Tablet(s) PO BID morning and early remi felecia 04/18/2018 04/29/2018 Inactive he just filled a requip 0.25mg rx - he w ill double his meds then call when he needs this filled amlodipine 5 mg tablet RxNorm: 361173 1 Tablet(s) PO daily by Dr. Jade 03/13/2018 05/29/2018 In active Requip 0.25 mg tablet RxNorm: 487784 1 Tablet(s) PO BID morning and early remi felecia 03/13/2018 04/17/2018 Inactive triamcinolone aceton andrews 0.1 % topical cream RxNorm: 7656039 1 Application TOP BI D as needed 01/16/2018 05/15/2018 Inactive he would like 3 15 gram tub es triamcinolone aceton andrews 0.1 % topical cream RxNorm: 1338232 1 Application TOP BI D as needed 01/16/2018 01/15/2018 Inactive he would like 3 15 gram tub es amlodipine 10 mg tablet RxNorm: 311920 1 Tablet(s) PO daily by Dr. Jdae 01/16/2018 03/12/2018 In active metformin ER 500 mg tablet,extended release 24hr RxNorm: 4742551 TAKE ONE TABLET BY MOUTH TWICE DAILY 12/04/2017 04/29/2018 Inactive metformin ER 500 mg tablet,extended release 24hr RxNorm: 1147792 TAKE ONE TABLET BY MOUTH TWICE DAILY 03/22/2017 12/03/2017 Inactive Tylenol PM Extra Str ength 25 mg-500 mg tablet RxNorm: 5546703 1 Tablet(s) PO QHS 01/17/2017 No Stop Date Active triamcinolone aceton andrews 0.1 % topical cream RxNorm: 9516059 1 Application TOP BI D as needed 01/17/2017 05/16/2017 Inactive metformin ER 500 mg tablet,extended release 24hr RxNorm: 303430 TAKE ONE TABLET BY MOUTH TWICE DAILY 09/27/2016 03/21/2017 Inactive triamcinolone aceton andrews 0.1 % topical cream RxNorm: 7875665 1 Application TOP BI D as needed 07/19/2016 09/16/2016 Inactive metformin ER 500 mg tablet,extended release 24hr RxNorm: 241325 1 Tablet(s) PO BID 08/19/2015 09/26/2016 In active metformin ER 500 mg tablet,extended release 24hr RxNorm: 953224 1 Tablet(s) PO BID 08/14/2015 08/18/2015 In active metformin ER 500 mg tablet,extended release 24hr RxNorm: 297731 1 Tablet(s) PO BID 04/09/2015 08/13/2015 In active triamcinolone aceton andrews 0.1 % topical cream RxNorm: 4193353 1 Application TOP BI D as needed 01/13/2015 07/18/2016 Inactive Flonase Allergy Reli ef 50 mcg/actuation nasal spray,suspension RxNorm: 1 [place] NASAL BID 12/03/2014 01/12/2015 Inactive triamcinolone aceton andrews 0.1 % topical cream RxNorm: 9012524 1 Application TOP BI D as needed 06/04/2014 01/12/2015 Inactive metformin ER 500 mg tablet,extended release 24hr RxNorm: 089117 1 Tablet(s) PO BID 03/05/2014 04/08/2015 In active multivitamin oral RxNorm: 49898 oral No Start Date Active Vitamin B-12 oral RxNorm: 49860 oral No Start Date Active Baby Aspirin 81 mg c hewable tablet RxNorm: 069686 1 Tablet(s) PO daily No Start Date Active Inderal LA 160 mg ca psule,extended release RxNorm: 134018 1 Capsule(s) PO daily No Start Date Active amlodipine 5 mg tablet RxNorm: 848488 1 Tablet(s) PO daily No Start Date 01/15/2018 Inactive multivitamin tablet RxNorm: 1 Tablet(s) PO daily No Start Date 01/16/2017 Inactive tramadol 50 mg tablet RxNorm: 018250 1 Tablet(s) PO TID No Start Date 07/21/2015 Inactive Tylenol PM Extra Str ength 25 mg-500 mg tablet RxNorm: 9748525 2 Tablet(s) PO QHS No Start Date 01/16/2017 Inactive metformin ER 500 mg tablet,extended release 24hr RxNorm: 606976 1 Tablet(s) PO BID No Start Date 03/04/2014 Inactive Methotrexate (Anti-R heumatic) 2.5 mg tablet RxNorm: 178396 8 Tablet(s) PO one ti me per week No Start Date 07/21/2015 Inactive Protonix 40 mg table t,delayed release RxNorm: 786173 1 Tablet(s) PO daily No Start Date 12/02/2014 Inactive Vitamin B-12 1,000 m cg tablet RxNorm: 600138 1 Tablet(s) PO daily No Start Date 01/16/2017 Inactive simvastatin 10 mg ta blet RxNorm: 231823 1 Tablet(s) PO daily No Start Date 05/29/2018 Inactive propranolol ER 120 m g capsule,24 hr,extended release RxNorm: 037863 1 Capsule(s) PO daily No Start Date 07/17/2017 Inactive Medication Administered No Medication Administered data Immunizations Vaccine Codes Date Status Influenza CVX: 141 11/27 completed Assessments Condition Codes Effectiv e Dates Actinic keratosis ICD-10: L57.0 ICD-9: 702.0 05/30/2018 [...] Visit Effective Dates Notes dyskinesia or tremor 05/30/2018 dyskinesia or tremor [...] 31.0 pg 01/11/2018 Cbc With Differential Ord2 [place]% 8.8 % 01/11/2018 Cbc With Differential Ord2 [...] 2.90 K/ul 01/11/2018 Cbc With Differential Ord2 [place] ABS# 0.8 K/ul 01/11/2018 Cbc With Differential Ord2 Eos ABS# 0.3 K/ul 01/11/2018 Cbc With Differential Ord2 Baso ABS# 0.1 K/ul 01/11/2018 %Hba1C Rct019 % HbA1c 58575-1 6.0 % 01/11/2018 %Hba1C Tzz776 Gluc Ave 126 mg/dL 01/11/2018 Tsh Ord6 TSH (3rd IS) 5.07 uIU/mL 01/11/2018 Lipid Ord30 CHOL 131 mg/dL 01/11/2018 Lipid Ord30 HDL 36.0 mg/dl 01/11/2018 Lipid Ord30 TRIG 59 mg/dL 01/11/2018 Lipid Ord30 LDL 83 mg/dL 01/11/2018 Lipid Ord30 C/HDL 3.6 Ratio 01/11/2018 Free T4 Cdf481 FREE T4 1.00 ng/dL 01/11/2018 Comp Metabolic Sfp080 NA 141 mEq/L 01/11/2018 Comp Metabolic Fhp369 K 4.1 mEq/L 01/11/2018 Comp Metabolic Ekv077 CL 104 mEq/L 01/11/2018 Comp Metabolic Yvj069 CO2 30.0 mEq/L 01/11/2018 Comp Metabolic Gty027 AN ION GAP 11 01/11/2018 Comp Metabolic Asz272 GL UCOSE 131 mg/dL 01/11/2018 Comp Metabolic Agn698 Cr eat 0.9 mg/dL 01/11/2018 Comp Metabolic Mgm737 eG FR 86 ml/min/1.73m2 01/11 Comp Metabolic Uvv741 BUN 10 mg/dL 01/11/2018 Comp Metabolic Ayw458 B/ C Ratio 11.2 Ratio 01/11/2018 Comp Metabolic Rcm249 CA LCIUM 9.1 mg/dL 01/11/2018 Comp Metabolic Ldt747 AL K PHOS 49 U/L 01/11/2018 Comp Metabolic Bdo930 T(SGOT) 14 U/L 01/11/2018 Comp Metabolic Iof860 AL T(SGPT) 13 U/L 01/11/2018 Comp Metabolic Pwm250 BI LI T 0.6 mg/dL 01/11/2018 Comp Metabolic Lqv764 AL BUMIN 4.0 g/dL 01/11/2018 Comp Metabolic Org401 TP RO 6.4 g/dL 01/11/2018 Comp Metabolic Svk411 GL OB 2.4 g/dL 01/11/2018 Comp Metabolic Tjk882 A/ G Ratio 1.6 Ratio 01/11/2018 Comp Metabolic Tzb669 Os mo 282 mOsmo 01/11/2018 %Hba1C Lpk197 % HbA1c 47640-1 6.2 % 07/14/2017 %Hba1C Oke277 Gluc Ave 131 mg/dL 07/14/2017 Cbc With [...] 31.1 pg 07/14/2017 Cbc With Differential Ord2 [place]% 8.5 % 07/14/2017 Cbc With Differential Ord2 [...] 2.76 K/ul 07/14/2017 Cbc With Differential Ord2 [place] ABS# 0.8 K/ul 07/14/2017 Cbc With Differential Ord2 Eos ABS# 0.4 K/ul 07/14/2017 Cbc With Differential Ord2 Baso ABS# 0.0 K/ul 07/14/2017 Free T4 Unj911 FREE T4 0.97 ng/dL 07/14/2017 Tsh Ord6 TSH (3rd IS) 4.46 uIU/mL 07/14/2017 Comp Metabolic Xpy428 NA 140 mEq/L 07/14/2017 Comp Metabolic Tjl317 K 4.2 mEq/L 07/14/2017 Comp Metabolic Vlg898 CL 103 mEq/L 07/14/2017 Comp Metabolic Yvh482 CO2 29.0 mEq/L 07/14/2017 Comp Metabolic Jdm979 AN ION GAP 12 07/14/2017 Comp Metabolic Uzv051 GL UCOSE 127 mg/dL 07/14/2017 Comp Metabolic Kok426 Cr eat 0.9 mg/dL 07/14/2017 Comp Metabolic Hsr938 eG FR 90 ml/min/1.73m2 07/14 Comp Metabolic Xmq142 BUN 8 mg/dL 07/14/2017 Comp Metabolic Wdx288 B/ C Ratio 9.3 Ratio 07/14/2017 Comp Metabolic Ouk605 CA LCIUM 9.5 mg/dL 07/14/2017 Comp Metabolic Mmd447 AL K PHOS 77 U/L 07/14/2017 Comp Metabolic Myt106 T(SGOT) 18 U/L 07/14/2017 Comp Metabolic Lcb909 AL T(SGPT) 20 U/L 07/14/2017 Comp Metabolic Poc920 BI LI T 0.7 mg/dL 07/14/2017 Comp Metabolic Pvr780 AL BUMIN 4.4 g/dL 07/14/2017 Comp Metabolic Hki726 TP RO 6.9 g/dL 07/14/2017 Comp Metabolic Ioe758 GL OB 2.6 g/dL 07/14/2017 Comp Metabolic Svh135 A/ G Ratio 1.7 Ratio 07/14/2017 Comp Metabolic Hab219 Os mo 279 mOsmo 07/14/2017 Free T4 Pjk246 FREE T4 0.97 ng/dL 04/21/2017 Tsh Ord6 TSH (3rd IS) 4.44 uIU/mL 04/21/2017 %Hba1C Jwz657 % HbA1c 50467-4 6.3 % 01/06/2017 %Hba1C Syg809 Gluc Ave 134 mg/dL 01/06/2017 Cbc With [...] 31.3 pg 01/06/2017 Cbc With Differential Ord2 [place]% 9.2 % 01/06/2017 Cbc With Differential Ord2 [...] 3.60 K/ul 01/06/2017 Cbc With Differential Ord2 [place] ABS# 0.9 K/ul 01/06/2017 Cbc With Differential Ord2 Eos ABS# 0.3 K/ul 01/06/2017 Cbc With Differential Ord2 Baso ABS# 0.0 K/ul 01/06/2017 Lipid Ord30 CHOL 134 mg/dL 01/06/2017 Lipid Ord30 HDL 35.0 mg/dl 01/06/2017 Lipid Ord30 TRIG 111 mg/dL 01/06/2017 Lipid Ord30 LDL 77 mg/dL 01/06/2017 Lipid Ord30 C/HDL 3.8 Ratio 01/06/2017 Comp Metabolic Jik410 NA 139 mEq/L 01/06/2017 Comp Metabolic Mer084 K 4.2 mEq/L 01/06/2017 Comp Metabolic Vqn257 CL 103 mEq/L 01/06/2017 Comp Metabolic Kvc010 CO2 29.0 mEq/L 01/06/2017 Comp Metabolic Evd527 AN ION GAP 11 01/06/2017 Comp Metabolic Ojx370 GL UCOSE 121 mg/dL 01/06/2017 Comp Metabolic Nsm964 Cr eat 0.8 mg/dL 01/06/2017 Comp Metabolic Stf945 eG FR 101 ml/min/1.73m2 12/28 Comp Metabolic Wlh668 BUN 9 mg/dL 01/06/2017 Comp Metabolic Zmp584 B/ C Ratio 11.5 Ratio 01/06/2017 Comp Metabolic Yku805 CA LCIUM 9.3 mg/dL 01/06/2017 Comp Metabolic Nrx977 AL K PHOS 48 U/L 01/06/2017 Comp Metabolic Izi347 T(SGOT) 15 U/L 01/06/2017 Comp Metabolic Mfp061 AL T(SGPT) 17 U/L 01/06/2017 Comp Metabolic Old258 BI LI T 0.6 mg/dL 01/06/2017 Comp Metabolic Akb904 AL BUMIN 4.0 g/dL 01/06/2017 Comp Metabolic Hqc880 TP RO 6.4 g/dL 01/06/2017 Comp Metabolic Hvo912 GL OB 2.4 g/dL 01/06/2017 Comp Metabolic Otd281 A/ G Ratio 1.7 Ratio 01/06/2017 Comp Metabolic Yyc501 Os mo 277 mOsmo 01/06/2017 Tsh Ord6 [...] 30.9 pg 07/14/2016 Cbc With Differential Ord2 [place]% 8.4 % 07/14/2016 Cbc With Differential Ord2 [...] 2.34 K/ul 07/14/2016 Cbc With Differential Ord2 [place] ABS# 0.7 K/ul 07/14/2016 Cbc With Differential Ord2 Eos ABS# 0.4 K/ul 07/14/2016 Cbc With Differential Ord2 Baso ABS# 0.1 K/ul 07/14/2016 Comp Metabolic Xkj087 NA 139 mEq/L 07/14/2016 Comp Metabolic Czm700 K 4.4 mEq/L 07/14/2016 Comp Metabolic Evl144 CL 103 mEq/L 07/14/2016 Comp Metabolic Lmo530 CO2 31.0 mEq/L 07/14/2016 Comp Metabolic Pbt305 AN ION GAP 9 07/14/2016 Comp Metabolic Xkg568 GL UCOSE 109 mg/dL 07/14/2016 Comp Metabolic Pxs875 Cr eat 0.9 mg/dL 07/14/2016 Comp Metabolic Qai789 eG FR 88 ml/min/1.73m2 07/14 Comp Metabolic Fbl846 BUN 12 mg/dL 07/14/2016 Comp Metabolic Ndr708 B/ C Ratio 13.6 Ratio 07/14/2016 Comp Metabolic Ggb091 CA LCIUM 8.9 mg/dL 07/14/2016 Comp Metabolic Rwy880 AL K PHOS 42 U/L 07/14/2016 Comp Metabolic Yep017 T(SGOT) 14 U/L 07/14/2016 Comp Metabolic Ldv267 AL T(SGPT) 13 U/L 07/14/2016 Comp Metabolic Azp511 BI LI T 0.6 mg/dL 07/14/2016 Comp Metabolic Krv675 AL BUMIN 3.8 g/dL 07/14/2016 Comp Metabolic Dij236 TP RO 6.2 g/dL 07/14/2016 Comp Metabolic Mbo945 GL OB 2.4 g/dL 07/14/2016 Comp Metabolic Aln863 A/ G Ratio 1.6 Ratio 07/14/2016 Comp Metabolic Njs554 Os mo 278 mOsmo 07/14/2016 %Hba1C Qap524 % HbA1c 78858-1 5.8 % 07/14/2016 %Hba1C Wwb304 Gluc Ave 120 mg/dL 07/14/2016 Cbc With [...] 31.3 pg 01/15/2016 Cbc With Differential Ord2 [place]% 8.4 % 01/15/2016 Cbc With Differential Ord2 [...] 2.53 K/ul 01/15/2016 Cbc With Differential Ord2 [place] ABS# 0.8 K/ul 01/15/2016 Cbc With Differential Ord2 Eos ABS# 0.5 K/ul 01/15/2016 Cbc With Differential Ord2 Baso ABS# 0.1 K/ul 01/15/2016 Lipid Ord30 CHOL 119 mg/dL 01/15/2016 Lipid Ord30 HDL 32.0 mg/dl 01/15/2016 Lipid Ord30 TRIG 120 mg/dL 01/15/2016 Lipid Ord30 LDL 63 mg/dL 01/15/2016 Lipid Ord30 C/HDL 3.7 Ratio 01/15/2016 %Hba1C Hhf536 % HbA1c 42919-7 5.9 % 01/15/2016 %Hba1C Vtw973 Gluc Ave 123 mg/dL 01/15/2016 Tsh Ord6 hTSH II 2.98 uIU/mL 01/15/2016 Comp Metabolic Xpo571 NA 137 mEq/L 01/15/2016 Comp Metabolic Gck892 K 3.9 mEq/L 01/15/2016 Comp Metabolic Jwv879 CL 104 mEq/L 01/15/2016 Comp Metabolic Isj074 CO2 26.0 mEq/L 01/15/2016 Comp Metabolic Wgz196 AN ION GAP 11 01/15/2016 Comp Metabolic Huf731 GL UCOSE 113 mg/dL 01/15/2016 Comp Metabolic Kzj553 Cr eat 0.8 mg/dL 01/15/2016 Comp Metabolic Oqh682 eG FR 101 ml/min/1.73m2 12/28 Comp Metabolic Oqe803 BUN 10 mg/dL 01/15/2016 Comp Metabolic Eop385 B/ C Ratio 12.8 Ratio 01/15/2016 Comp Metabolic Oko637 CA LCIUM 9.1 mg/dL 01/15/2016 Comp Metabolic Kcq386 AL K PHOS 51 U/L 01/15/2016 Comp Metabolic Sfd150 T(SGOT) 16 U/L 01/15/2016 Comp Metabolic Ckx615 AL T(SGPT) 17 U/L 01/15/2016 Comp Metabolic Brf328 BI LI T 0.7 mg/dL 01/15/2016 Comp Metabolic Ggl419 AL BUMIN 3.9 g/dL 01/15/2016 Comp Metabolic Vzf755 TP RO 6.4 g/dL 01/15/2016 Comp Metabolic Uwx351 GL OB 2.5 g/dL 01/15/2016 Comp Metabolic Wfu704 A/ G Ratio 1.5 Ratio 01/15/2016 Comp Metabolic Ayo373 Os mo 274 mOsmo 01/15/2016 Cbc With [...] 31.2 pg 07/10/2015 Cbc With Differential Ord2 [place]% 8.5 % 07/10/2015 Cbc With Differential Ord2 [...] 2.86 K/ul 07/10/2015 Cbc With Differential Ord2 [place] ABS# 0.7 K/ul 07/10/2015 Cbc With Differential Ord2 Eos ABS# 0.3 K/ul 07/10/2015 Cbc With Differential Ord2 Baso ABS# 0.0 K/ul 07/10/2015 Cbc With Differential Ord2 New Analyzer Notice Please note new ref ranges s tarting 03-11-2015 due to implemntation of new five part differential hematolgy analyzer. 07/10/2015 Tsh Ord6 hTSH II 3.50 uIU/mL 07/10/2015 Comp Metabolic Pmh770 NA 138 mEq/L 07/10/2015 Comp Metabolic Jlk905 K 4.5 mEq/L 07/10/2015 Comp Metabolic End860 CL 102 mEq/L 07/10/2015 Comp Metabolic Hwd021 CO2 29.0 mEq/L 07/10/2015 Comp Metabolic Cki838 AN ION GAP 12 07/10/2015 Comp Metabolic Vdm279 GL UCOSE 105 mg/dL 07/10/2015 Comp Metabolic Fjt091 Cr eat 0.9 mg/dL 07/10/2015 Comp Metabolic Suf171 eG FR 85 ml/min/1.73m2 07/09 Comp Metabolic Yed820 BUN 12 mg/dL 07/10/2015 Comp Metabolic Ylv219 B/ C Ratio 13.2 Ratio 07/10/2015 Comp Metabolic Yzh085 CA LCIUM 9.1 mg/dL 07/10/2015 Comp Metabolic Hag058 AL K PHOS 43 U/L 07/10/2015 Comp Metabolic Jdl105 T(SGOT) 21 U/L 07/10/2015 Comp Metabolic Ibd063 AL T(SGPT) 21 U/L 07/10/2015 Comp Metabolic Fyz834 BI LI T 0.5 mg/dL 07/10/2015 Comp Metabolic Uhu761 AL BUMIN 4.0 g/dL 07/10/2015 Comp Metabolic Lqt447 TP RO 6.4 g/dL 07/10/2015 Comp Metabolic Imu202 GL OB 2.4 g/dL 07/10/2015 Comp Metabolic Cvp283 A/ G Ratio 1.6 Ratio 07/10/2015 Comp Metabolic Bnq921 Os mo 276 mOsmo 07/10/2015 Lipid Ord30 CHOL 121 mg/dL 07/10/2015 Lipid Ord30 HDL 33.0 mg/dl 07/10/2015 Lipid Ord30 TRIG 99 mg/dL 07/10/2015 Lipid Ord30 LDL 68 mg/dL 07/10/2015 Lipid Ord30 C/HDL 3.7 Ratio 07/10/2015 %Hba1C Pgk137 % HbA1c 77379-0 6.0 % 07/10/2015 %Hba1C Eod226 Gluc Ave 126 mg/dL 07/10/2015 Comp Metabolic Htq940 NA 136 mEq/L 12/04/2014 Comp Metabolic Ibf984 K 4.1 mEq/L 12/04/2014 Comp Metabolic Lch808 CL 103 mEq/L 12/04/2014 Comp Metabolic Wgy915 CO2 28.0 mEq/L 12/04/2014 Comp Metabolic Ibn876 AN ION GAP 9 12/04/2014 Comp Metabolic Pnm048 GL UCOSE 118 mg/dL 12/04/2014 Comp Metabolic Ysb573 Cr eat 0.9 mg/dL 12/04/2014 Comp Metabolic Pvj502 eG FR 88 ml/min/1.73m2 12/04 Comp Metabolic Nco564 BUN 10 mg/dL 12/04/2014 Comp Metabolic Ukc799 B/ C Ratio 11.4 Ratio 12/04/2014 Comp Metabolic Jjq435 CA LCIUM 9.4 mg/dL 12/04/2014 Comp Metabolic Ffk275 AL K PHOS 50 U/L 12/04/2014 Comp Metabolic Nlt719 T(SGOT) 17 U/L 12/04/2014 Comp Metabolic Ece021 AL T(SGPT) 17 U/L 12/04/2014 Comp Metabolic Jvf293 BI LI T 0.7 mg/dL 12/04/2014 Comp Metabolic Lsl386 AL BUMIN 4.1 g/dL 12/04/2014 Comp Metabolic Jvv711 TP RO 6.4 g/dL 12/04/2014 Comp Metabolic Vob270 GL OB 2.3 g/dL 12/04/2014 Comp Metabolic Zju307 A/ G Ratio 1.8 Ratio 12/04/2014 Comp Metabolic Pey316 Os mo 272 mOsmo 12/04/2014 Tsh Ord6 hTSH II 4.00 uIU/mL 12/04/2014 %Hba1C Vdm056 % HbA1c 63858-2 6.2 % 12/04/2014 %Hba1C Ljo642 Gluc Ave 131 mg/dL 12/04/2014 Cbc With [...] Result Effective Dates Constitutional No recent illness 05/30/2018 Constitutional No [...] Procedure Codes Date DESTRUCT PREMALG LESION CPT-4: 67994 05/30/2018 DESTRUCT PREMALG LES 2-14 CPT-4: 23996 05/30/2018 DESTRUCT PREMALG LES 2-14 CPT-4: 45493 01/16/2018 DESTRUCT PREMALG LESION CPT-4: 54697 01/16/2018 DESTRUCT PREMALG LESION CPT-4: 17649 07/19/2016 DESTRUCT PREMALG LES 2-14 CPT-4: 51775 07/19/2016 DESTRUCT PREMALG LESION CPT-4: 11285 01/13/2015 DESTRUCT PREMALG LES 2-14 CPT-4: 79432 01/13/2015 Vital Signs Date Vital 05/30/2018 Blood Pressure 1: 140/68 Code: 8480-6 BMI: 32.9 Code: 37045-3 Heart Rate 1: 54 bpm Height: 5'11" SpO2: 96% Weight: 236 lbs 04/18/2018 Blood Pressure 1: 140/72 Code: 8480-6 BMI: 32.8 Code: 41116-0 Heart Rate 1: 52 bpm Height: 5'11" SpO2: 97% Weight: 235 lbs 03/13/2018 Blood Pressure 1: 150/80 Code: 8480-6 BMI: 32.5 Code: 54055-4 Heart Rate 1: 77 bpm Height: 5'11" SpO2: 97% Weight: 233 lbs 01/16/2018 Blood Pressure 1: 138/72 Code: 8480-6 BMI: 32.5 Code: 06472-7 Heart Rate 1: 54 bpm Height: 5'11" SpO2: 95% Weight: 233 lbs 07/18/2017 Blood Pressure 1: 138/68 Code: 8480-6 BMI: 32.2 Code: 01069-7 Heart Rate 1: 59 bpm Height: 5'11" SpO2: 96% Weight: 231 lbs 01/17/2017 Blood Pressure 1: 140/78 Code: 8480-6 BMI: 32.5 Code: 26245-6 Heart Rate 1: 52 bpm Height: 5'11" SpO2: 98% Weight: 233 lbs 07/19/2016 Blood Pressure 1: 140/74 Code: 8480-6 BMI: 32.4 Code: 66415-5 Heart Rate 1: 57 bpm Height: 5'11" SpO2: 95% Weight: 232 lbs 01/19/2016 Blood Pressure 1: 132/60 Code: 8480-6 BMI: 32.9 Code: 67710-8 Heart Rate 1: 58 bpm Height: 5'11" SpO2: 96% Weight: 236 lbs 07/22/2015 Blood Pressure 1: 158/78 Code: 8480-6 Blood Pressure 1: 150/78 Code: 8480-6 BMI: 31.9 Code: 55697-1 Heart Rate 1: 55 bpm Height: 5'11" SpO2: 98% Weight: 229 lbs 01/13/2015 Blood Pressure 1: 146/74 Code: 8480-6 BMI: 32.2 Code: 53595-7 Heart Rate 1: 63 bpm Height: 5'11" SpO2: 97% Weight: 231 lbs 12/03/2014 Blood Pressure 1: 142/78 Code: 8480-6 Blood Pressure 1: 128/75 Code: 8480-6 BMI: 32.4 Code: 67903-5 Heart Rate 1: 57 bpm Height: 5'11" SpO2: 95% Weight: 232 lbs 06/04/2014 Blood Pressure 1: 138/78 Code: 8480-6 BMI: 32.5 Code: 78125-5 Heart Rate 1: 56 bpm Height: 5'11" SpO2: 96% Weight: 233 lbs 12/10/2013 Blood Pressure 1: 122/78 Code: 8480-6 BMI: 32.2 Code: 08669-2 Heart Rate 1: 76 bpm Height: 5'11" Weight: 231 lbs Functional Status No Functional Status data History of Present Illness Symptom Name Status Resu lt Effective Date Notes Location on both hands 05/30/2018 None Quality [...] ies lightheadedness 03/13/2018 None 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 P ATIENT, LEVEL IV Diagnosis: Essential (primary) hypertension[ICD10: I10] Diagnosis: Essential tremor[ICD10: G25.0] Diagnosis: Mixed hyperlipidemia[ICD10: E78.2] Diagnosis: Myalgia, other site[ICD10: M79.18] Renita Roberson MD, [facility] CPT- 4: 99377 05/30/2018 ([id number]) 19010 EST. P ATIENT, LEVEL III Diagnosis: Essential tremor[ICD10: G25.0] Renita Roberson MD, [facility] CPT-4: 21174 04/18/2018 ([id number]) 39267 EST. P ATIENT, LEVEL IV Diagnosis: Essential tremor[ICD10: G25.0] Diagnosis: Essential (primary) hypertension[ICD10: I10] Renita Roberson MD, C CPT-4: 62719 03/13/2018 ([id number]) 78301 EST. P ATIENT, LEVEL IV Diagnosis: Type 2 diabetes mellitus without complications[ICD10: E11.9] Diagnosis: Essential (primary) hypertension[ICD10: I10] Diagnosis: Actinic keratosis[ICD10: L57.0] Diagnosis: Lumbago with sciatica, right side[ICD10: M54.41] Renita Roberson MD, C CPT-4: 75563 01/16/2018 ([id number]) 50307 EST. P ATIENT, LEVEL IV Diagnosis: Essential (primary) hypertension[ICD10: I10] Diagnosis: Type 2 diabetes mellitus without complications[ICD10: E11.9] Diagnosis: Actinic keratosis[ICD10: L57.0] Diagnosis: Mixed hyperlipidemia[ICD10: E78.2] Irlanda Roberson MD, [facility] CPT-4: 89556 07/18/2017 ([id number]) 26535 EST. P ATIENT, LEVEL IV Diagnosis: Essential (primary) hypertension[ICD10: I10] Diagnosis: Type 2 diabetes mellitus without complications[ICD10: E11.9] Diagnosis: Hypothyroidism, unspecified[ICD10: E03.9] Diagnosis: Actinic keratosis[ICD10: L57.0] Irlanda Roberson MD, [facility] CPT- 4: 35814 01/17/2017 ([id number]) 02937 EST. P ATIENT, LEVEL III Diagnosis: Essential (primary) hypertension[ICD10: I10] Diagnosis: Mixed hyperlipidemia[ICD10: E78.2] Diagnosis: Type 2 diabetes mellitus without complications[ICD10: E11.9] Diagnosis: Actinic keratosis[ICD10: L57.0] Irlanda Roberson MD, [facility] CPT- 4: 70090 07/19/2016 ([id number]) 32792 EST. P ATIENT, LEVEL IV Diagnosis: Essential (primary) hypertension[ICD10: I10] Diagnosis: Type 2 diabetes mellitus without complications[ICD10: E11.9] Diagnosis: Mixed hyperlipidemia[ICD10: E78.2] Renita Roberson MD, [facility] CPT- 4: 14245 01/19/2016 [id number] EST. PATIENT, LEVEL IV Diagnosis: Essential (primary) hypertension[ICD10: I10] Diagnosis: Type 2 diabetes mellitus without complications[ICD10: E11.9] Marielle Roberson MD, [facility] CPT-4: 19991 07/22/2015 ([id number]) 99752 EST. P ATIENT, LEVEL III Diagnosis: Essential (primary) hypertension[ICD10: I10] Diagnosis: Actinic keratosis[ICD10: L57.0] Diagnosis: Personal history of diseases of the skin and subcutaneous tissue[ICD10: Z87.2] Renita Roberson MD, [facility] CPT-4: 10347 01/13/2015 ([id number]) 35699 EST. P ATIENT, LEVEL IV Diagnosis: Essential (primary) hypertension[ICD10: I10] Diagnosis: Other abnormal glucose[ICD10: R73.09] Renita Roberson MD, [facility] CPT-4: 11912 12/03/2014 ([id number]) 45148 EST. 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 Call if not improved after thorough healing. 05/30/2018 Patient Education: Patient Medication Summary Completed 05/30/2018 Patient Education: Cholesterol Management Completed 05/30/2018 Visit Plan: Essential tremor - incr ease the requip to 0.25mg - 1.5 pills twice daily x 4 days then increase to 0.5mg (two pills) twice daily - I sent the new RX to the [facility] - you can call the pharmacy when you are ready to pick and shovel man this higher dose. 04/18/2018 Appointment: Renita Roberson WPtel: [address] [place], [place] [id number] (15 min) Moderate 04/18/2018 Patient Education: Patient [...] home. 03/13/2018 Appointment: Renita Roberson WPtel: [phone] [id number] (15 min) Moderate 03/13/2018 Patient Education: [...] healing. 01/16/2018 Appointment: [id number] (15 min) Moderate 01/16/2018 Patient Education: Patient [...] office 07/18/2017 Appointment: Irlanda Huerta WPtel: [phone] [phone] (30 min) Complex 07/18/2017 Patient Education: Patient [...] office 01/17/2017 Appointment: [phone] (30 min) Complex 01/17/2017 Patient Education: Patient [...] nose 07/19/2016 Appointment: Irlanda Huerta WPtel: [phone] [phone] (30 min) Complex 07/19/2016 Patient Education: Patient Medication Summary Completed 07/19/2016 Patient Education: Obesity Completed 07/19/2016 Patient Education: Patient Medication Summary Completed 07/14/2016 Appointment: Marielle Brush WPtel: [phone] [phone] [facility] - Annual Wellness Visit 01/28/2016 Appointment: Irlanda Huerta WPtel: [phone] [phone] [facility] - Annual Wellness Visit 01/26/2016 Visit Plan: [...] liver response to me dications. 01/19/2016 Appointment: [place] Renita [id number] (15 min) Moderate 01/19/2016 Patient Education: Patient [...] hands and posterior right scalp 01/13/2015 Appointment: Da Renita [facility]el[id number] (15 min) Moderate 01/13/2015 Patient Education: Patient [...] with metformin 12/03/2014 Appointment: Renita Roberson WPtel: [address] [place], [place] [phone] Follow up 12/03/2014 Patient Education: Patient Medication [...] instructions/medication interventions. 06/04/2014 Appointment: Renita Roberson WPtel: [address] [place], [place] [phone] Follow up 06/04/2014 Patient Education: Patient Medication Summary Completed 06/04/2014 Patient Education: Hypertension Completed 06/04/2014 Care Plan: Referral Order SNOMED-CT : [id number] Ordered 06/04/2014 Visit Plan: Hypertension - well [...] Dr. Starr. 12/10/2013 Appointment: Renita Roberson WPtel: [phone] bringing in new pt paperwork New Patient 12/10/2013 Patient Education: Patient Medication Summary Completed 12/10/2013 Patient Education: Hypertension Completed 12/10/2013 Referral: Don Rodriguez WPtel: [facility] [facility] Referral Appointment Requested Instructions Comment increase the requip to 0.25mg - 1.5 pills twice daily x 4 days then increase to 0.5mg (two pills) twice daily - I sent the new RX to the [facility] - you can call the pharmacy when you are ready to pick and shovel man this higher dose. . Essential tremor - increase the requip to 0.25mg - 1.5 pills twice daily x 4 days then increase to 0.5mg (two pills) twice daily - I sent the new RX to the [facility] - you can call the pharmacy when you are ready to pick and shovel man this higher dose. . Diabetes Mellitus - [...] new cholesterol medication - in TWO WEEKS pick and shovel man Qunol - coenzyme q10 - it is [...] new cholesterol medication - in TWO WEEKS pick and shovel man Qunol - coenzyme q10 - it is [...]
--- OUTSIDE RECORDS SUMMARY | 2019-06-22 15:23 | XMS REPORT | CCD ---
Author Author Ravinder Roberson Organization Renita Roberson MD, [facility] Address [address] [place] [address] Phone Care Team Providers Care Line Erector Name Role Phone PP Unavailable CCM Unavailable Summary Purpose Interface Exchange Insurance Providers Payer name Policy type / Coverage type Covered democrat ID Effective Begin Date Effective End Date WPS Medicare Part B Medicare Part B [id number] Unknown [facility] icare Part B [id number] Un known Family history Father Diagnosis Age At Onset Hypertension Unknown Brother Diagnosis Age At Onset Coronary Artery Disease Unknown Cancer Unknown Hypertension Unknown Mother Diagnosis Age At Onset Hypertension Unknown Social History Social History Element Codes Description Effective Dates Marital status Unknown M arried 12/10/2013 Number of children Unknown 2 12/10/2013 Employment Unknown Retir ed 12/10/[address]: 9024624 Former smoker quit 1980 12/10/[address]: 660320751 Never drinks alcohol 12/10/2013 Allergies, Adverse Reactions, [...] Condition Status Onset Date Resolved Date Essential tremor ICD-9: 333.1 ICD-10: G25.0 Active 03/13/2018 Unknown Essential (primary) hypertension ICD-9: 401.9 ICD-10: I10 Active 12/10/2013 Unknown Sciatica Unknown Active 01/16/2018 Unknow n Actinic keratosis ICD-9: 702.0 ICD-10: L57.0 Active 01/12/2015 Unknown Lumbago with sciatic a, right side ICD-9: 724.3 ICD-10: M54.41 Active 01/16/2018 Unknown Type 2 diabetes glenn itus without complications ICD-9: 250.00 ICD-10: E11.9 Active 01/18/2016 Unknown Hypothyroidism, unsp ecified ICD-9: 244.9 ICD-10: E03.9 Active 01/17/2017 Unknown Mixed hyperlipidemia ICD-9: 272.2 ICD-10: E78.2 Active 01/18/2016 Unknown Hypothryroidism Unknown Active 01/17/2017 Unknow n [...] Codes Effectiv e Dates Condition Status Essential tremor ICD-9: 333.1 ICD-10: G25.0 03/13/2018 Active Essential (primary) hypertension ICD-9: 401.9 ICD-10: I10 12/10/2013 Active Sciatica Unknown 01/16/2018 Active Actinic keratosis ICD-9: 702.0 ICD-10: L57.0 01/12/2015 Active Lumbago with sciatic a, right side ICD-9: 724.3 ICD-10: M54.41 01/16/2018 Active Type 2 diabetes glenn itus without complications ICD-9: 250.00 ICD-10: E11.9 01/18/2016 Active Hypothyroidism, unsp ecified ICD-9: 244.9 ICD-10: E03.9 01/17/2017 Active Mixed hyperlipidemia ICD-9: 272.2 ICD-10: E78.2 01/18/2016 Active Hypothryroidism Unknown 01/17/2017 Active Diabetes Unknown [...] Date Stop Date Sta tus Fill Instructions Requip 0.5 mg tablet RxNorm: 016011 1 Tablet(s) PO BID morning and early remi felecia 04/18/2018 11/13/2018 Ac tive he just filled a requip 0.25mg rx - he w ill double his meds then call when he needs this filled amlodipine 5 mg tablet RxNorm: 931649 1 Tablet(s) PO daily by Dr. Jade 03/13/2018 No Stop Date Active Requip 0.25 mg tablet RxNorm: 780472 1 Tablet(s) PO BID morning and early remi felecia 03/13/2018 04/17/2018 Inactive triamcinolone aceton andrews 0.1 % topical cream RxNorm: 2782806 1 Application TOP BI D as needed 01/16/2018 05/15/2018 Active he would like 3 15 gram tube s triamcinolone aceton andrews 0.1 % topical cream RxNorm: 5167032 1 Application TOP BI D as needed 01/16/2018 01/15/2018 Inactive he would like 3 15 gram tub es amlodipine 10 mg tablet RxNorm: 293572 1 Tablet(s) PO daily by Dr. Jade 01/16/2018 03/12/2018 In active metformin ER 500 mg tablet,extended release 24hr RxNorm: 8862895 TAKE ONE TABLET BY MOUTH TWICE DAILY 12/04/2017 No Stop Date Active metformin ER 500 mg tablet,extended release 24hr RxNorm: 2848603 TAKE ONE TABLET BY MOUTH TWICE DAILY 03/22/2017 12/03/2017 Inactive Tylenol PM Extra Str ength 25 mg-500 mg tablet RxNorm: 5245762 1 Tablet(s) PO QHS 01/17/2017 No Stop Date Active triamcinolone aceton andrews 0.1 % topical cream RxNorm: 0777416 1 Application TOP BI D as needed 01/17/2017 05/16/2017 Inactive metformin ER 500 mg tablet,extended release 24hr RxNorm: 769853 TAKE ONE TABLET BY MOUTH TWICE DAILY 09/27/2016 03/21/2017 Inactive triamcinolone aceton andrews 0.1 % topical cream RxNorm: 3870228 1 Application TOP BI D as needed 07/19/2016 09/16/2016 Inactive metformin ER 500 mg tablet,extended release 24hr RxNorm: 825241 1 Tablet(s) PO BID 08/19/2015 09/26/2016 In active metformin ER 500 mg tablet,extended release 24hr RxNorm: 462689 1 Tablet(s) PO BID 08/14/2015 08/18/2015 In active metformin ER 500 mg tablet,extended release 24hr RxNorm: 765156 1 Tablet(s) PO BID 04/09/2015 08/13/2015 In active triamcinolone aceton andrews 0.1 % topical cream RxNorm: 0931523 1 Application TOP BI D as needed 01/13/2015 07/18/2016 Inactive Flonase Allergy Reli ef 50 mcg/actuation nasal spray,suspension RxNorm: 1 [place] NASAL BID 12/03/2014 01/12/2015 Inactive triamcinolone aceton andrews 0.1 % topical cream RxNorm: 7876356 1 Application TOP BI D as needed 06/04/2014 01/12/2015 Inactive metformin ER 500 mg tablet,extended release 24hr RxNorm: 038358 1 Tablet(s) PO BID 03/05/2014 04/08/2015 In active multivitamin oral RxNorm: 73206 oral No Start Date Active Vitamin B-12 oral RxNorm: 85843 oral No Start Date Active Baby Aspirin 81 mg c hewable tablet RxNorm: 328408 1 Tablet(s) PO daily No Start Date Active Inderal LA 160 mg ca psule,extended release RxNorm: 430930 1 Capsule(s) PO daily No Start Date Active simvastatin 10 mg ta blet RxNorm: 397189 1 Tablet(s) PO daily No Start Date Active amlodipine 5 mg tablet RxNorm: 497196 1 Tablet(s) PO daily No Start Date 01/15/2018 Inactive multivitamin tablet RxNorm: 1 Tablet(s) PO daily No Start Date 01/16/2017 Inactive tramadol 50 mg tablet RxNorm: 591432 1 Tablet(s) PO TID No Start Date 07/21/2015 Inactive Tylenol PM Extra Str ength 25 mg-500 mg tablet RxNorm: 5922656 2 Tablet(s) PO QHS No Start Date 01/16/2017 Inactive metformin ER 500 mg tablet,extended release 24hr RxNorm: 899755 1 Tablet(s) PO BID No Start Date 03/04/2014 Inactive Methotrexate (Anti-R heumatic) 2.5 mg tablet RxNorm: 382120 8 Tablet(s) PO one ti me per week No Start Date 07/21/2015 Inactive Protonix 40 mg table t,delayed release RxNorm: 841036 1 Tablet(s) PO daily No Start Date 12/02/2014 Inactive Vitamin B-12 1,000 m cg tablet RxNorm: 888918 1 Tablet(s) PO daily No Start Date 01/16/2017 Inactive propranolol ER 120 m g capsule,24 hr,extended release RxNorm: 091359 1 Capsule(s) PO daily No Start Date 07/17/2017 Inactive Medication Administered No Medication Administered data Immunizations Vaccine Codes Date Status Influenza CVX: 141 11/27 completed Assessments Condition Codes Effectiv e Dates Essential tremor ICD-10: G25.0 ICD-9: 333.1 04/18/2018 Essential (primary) hypertension ICD -10: I10 ICD-9: 401.9 03/13/2018 Lumbago with sciatica, right side IC D-10: M54.41 ICD-9: 724.3 01/16/2018 Actinic keratosis ICD-10: L57.0 ICD-9: 702.0 01/16/2018 Type 2 diabetes mellitus without complications ICD-10: E11.9 ICD-9: 250.00 01/16/2018 Mixed hyperlipidemia ICD-10: E78.2 ICD-9: 272.2 01/10/2018 Hypothyroidism, unspecified ICD-10: E03.9 ICD-9: 244.9 01/10/2018 Personal history of diseases of the skin and subcutaneous tissue ICD-10: Z87.2 ICD-9: V13.3 01/13/2015 Other abnormal glucose ICD-10: R73.0 9 ICD-9: 790.29 12/03/2014 Benign paroxysmal positional vertigo ICD-9: 386.11 06/04/2014 ESSENTIAL HYPERTENSION ICD-9: 401.9 06/04/2014 Wrist pain, chronic ICD-9: 719.43 12/10/2013 Reason For Visit Reason For Visit Effective Dates Notes dyskinesia or tremor 04/18/2018 dyskinesia or tremor [...] 31.0 pg 01/11/2018 Cbc With Differential Ord2 Dane% 8.8 % 01/11/2018 Cbc With Differential Ord2 [...] 2.90 K/ul 01/11/2018 Cbc With Differential Ord2 Dane ABS# 0.8 K/ul 01/11/2018 Cbc With Differential Ord2 Eos ABS# 0.3 K/ul 01/11/2018 Cbc With Differential Ord2 Baso ABS# 0.1 K/ul 01/11/2018 %Hba1C Bzw549 % HbA1c 36541-5 6.0 % 01/11/2018 %Hba1C Jei509 Gluc Ave 126 mg/dL 01/11/2018 Tsh Ord6 TSH (3rd IS) 5.07 uIU/mL 01/11/2018 Lipid Ord30 CHOL 131 mg/dL 01/11/2018 Lipid Ord30 HDL 36.0 mg/dl 01/11/2018 Lipid Ord30 TRIG 59 mg/dL 01/11/2018 Lipid Ord30 LDL 83 mg/dL 01/11/2018 Lipid Ord30 C/HDL 3.6 Ratio 01/11/2018 Free T4 Awj618 FREE T4 1.00 ng/dL 01/11/2018 Comp Metabolic Vwp268 NA 141 mEq/L 01/11/2018 Comp Metabolic Eqc460 K 4.1 mEq/L 01/11/2018 Comp Metabolic Zdu380 CL 104 mEq/L 01/11/2018 Comp Metabolic Zjx887 CO2 30.0 mEq/L 01/11/2018 Comp Metabolic Gtr586 AN ION GAP 11 01/11/2018 Comp Metabolic Rgq489 GL UCOSE 131 mg/dL 01/11/2018 Comp Metabolic Dlt766 Cr eat 0.9 mg/dL 01/11/2018 Comp Metabolic Wqv801 eG FR 86 ml/min/1.73m2 01/11 Comp Metabolic Nju474 BUN 10 mg/dL 01/11/2018 Comp Metabolic Uuw662 B/ C Ratio 11.2 Ratio 01/11/2018 Comp Metabolic Iwd172 CA LCIUM 9.1 mg/dL 01/11/2018 Comp Metabolic Kwn403 AL K PHOS 49 U/L 01/11/2018 Comp Metabolic Dgi876 T(SGOT) 14 U/L 01/11/2018 Comp Metabolic Xem156 AL T(SGPT) 13 U/L 01/11/2018 Comp Metabolic Qqf271 BI LI T 0.6 mg/dL 01/11/2018 Comp Metabolic Yux930 AL BUMIN 4.0 g/dL 01/11/2018 Comp Metabolic Nxc603 TP RO 6.4 g/dL 01/11/2018 Comp Metabolic Vdh018 GL OB 2.4 g/dL 01/11/2018 Comp Metabolic Gye199 A/ G Ratio 1.6 Ratio 01/11/2018 Comp Metabolic Xmw125 Os mo 282 mOsmo 01/11/2018 %Hba1C Jyd187 % HbA1c 00187-5 6.2 % 07/14/2017 %Hba1C Cdp337 Gluc Ave 131 mg/dL 07/14/2017 Cbc With [...] 31.1 pg 07/14/2017 Cbc With Differential Ord2 Dane% 8.5 % 07/14/2017 Cbc With Differential Ord2 [...] 2.76 K/ul 07/14/2017 Cbc With Differential Ord2 Dane ABS# 0.8 K/ul 07/14/2017 Cbc With Differential Ord2 Eos ABS# 0.4 K/ul 07/14/2017 Cbc With Differential Ord2 Baso ABS# 0.0 K/ul 07/14/2017 Free T4 Fro450 FREE T4 0.97 ng/dL 07/14/2017 Tsh Ord6 TSH (3rd IS) 4.46 uIU/mL 07/14/2017 Comp Metabolic Nis072 NA 140 mEq/L 07/14/2017 Comp Metabolic Uhk033 K 4.2 mEq/L 07/14/2017 Comp Metabolic Whs549 CL 103 mEq/L 07/14/2017 Comp Metabolic Ajm471 CO2 29.0 mEq/L 07/14/2017 Comp Metabolic Sqe555 AN ION GAP 12 07/14/2017 Comp Metabolic Uqh424 GL UCOSE 127 mg/dL 07/14/2017 Comp Metabolic Obp810 Cr eat 0.9 mg/dL 07/14/2017 Comp Metabolic Tkf262 eG FR 90 ml/min/1.73m2 07/14 Comp Metabolic Mhp775 BUN 8 mg/dL 07/14/2017 Comp Metabolic Mte774 B/ C Ratio 9.3 Ratio 07/14/2017 Comp Metabolic Yjl296 CA LCIUM 9.5 mg/dL 07/14/2017 Comp Metabolic Kpf352 AL K PHOS 77 U/L 07/14/2017 Comp Metabolic Efk319 T(SGOT) 18 U/L 07/14/2017 Comp Metabolic Hbc604 AL T(SGPT) 20 U/L 07/14/2017 Comp Metabolic Iqu859 BI LI T 0.7 mg/dL 07/14/2017 Comp Metabolic Lfy594 AL BUMIN 4.4 g/dL 07/14/2017 Comp Metabolic Vac547 TP RO 6.9 g/dL 07/14/2017 Comp Metabolic Ksa011 GL OB 2.6 g/dL 07/14/2017 Comp Metabolic Eyw323 A/ G Ratio 1.7 Ratio 07/14/2017 Comp Metabolic Xem211 Os mo 279 mOsmo 07/14/2017 Free T4 Hvi828 FREE T4 0.97 ng/dL 04/21/2017 Tsh Ord6 TSH (3rd IS) 4.44 uIU/mL 04/21/2017 %Hba1C Gdb406 % HbA1c 98614-9 6.3 % 01/06/2017 %Hba1C Vse291 Gluc Ave 134 mg/dL 01/06/2017 Cbc With [...] 31.3 pg 01/06/2017 Cbc With Differential Ord2 Dane% 9.2 % 01/06/2017 Cbc With Differential Ord2 [...] 3.60 K/ul 01/06/2017 Cbc With Differential Ord2 Dane ABS# 0.9 K/ul 01/06/2017 Cbc With Differential Ord2 Eos ABS# 0.3 K/ul 01/06/2017 Cbc With Differential Ord2 Baso ABS# 0.0 K/ul 01/06/2017 Lipid Ord30 CHOL 134 mg/dL 01/06/2017 Lipid Ord30 HDL 35.0 mg/dl 01/06/2017 Lipid Ord30 TRIG 111 mg/dL 01/06/2017 Lipid Ord30 LDL 77 mg/dL 01/06/2017 Lipid Ord30 C/HDL 3.8 Ratio 01/06/2017 Comp Metabolic Ozu848 NA 139 mEq/L 01/06/2017 Comp Metabolic Dqn204 K 4.2 mEq/L 01/06/2017 Comp Metabolic Nzc552 CL 103 mEq/L 01/06/2017 Comp Metabolic Ode533 CO2 29.0 mEq/L 01/06/2017 Comp Metabolic Ech649 AN ION GAP 11 01/06/2017 Comp Metabolic Ilr269 GL UCOSE 121 mg/dL 01/06/2017 Comp Metabolic Kcs619 Cr eat 0.8 mg/dL 01/06/2017 Comp Metabolic Ufk924 eG FR 101 ml/min/1.73m2 12/28 Comp Metabolic Mos830 BUN 9 mg/dL 01/06/2017 Comp Metabolic Dhc497 B/ C Ratio 11.5 Ratio 01/06/2017 Comp Metabolic Aqa612 CA LCIUM 9.3 mg/dL 01/06/2017 Comp Metabolic Vzj867 AL K PHOS 48 U/L 01/06/2017 Comp Metabolic Pdt340 T(SGOT) 15 U/L 01/06/2017 Comp Metabolic Knc693 AL T(SGPT) 17 U/L 01/06/2017 Comp Metabolic Ztg296 BI LI T 0.6 mg/dL 01/06/2017 Comp Metabolic Yky178 AL BUMIN 4.0 g/dL 01/06/2017 Comp Metabolic Alj048 TP RO 6.4 g/dL 01/06/2017 Comp Metabolic Hqp330 GL OB 2.4 g/dL 01/06/2017 Comp Metabolic Lco110 A/ G Ratio 1.7 Ratio 01/06/2017 Comp Metabolic Jsw942 Os mo 277 mOsmo 01/06/2017 Tsh Ord6 [...] 30.9 pg 07/14/2016 Cbc With Differential Ord2 Dane% 8.4 % 07/14/2016 Cbc With Differential Ord2 [...] 2.34 K/ul 07/14/2016 Cbc With Differential Ord2 Dane ABS# 0.7 K/ul 07/14/2016 Cbc With Differential Ord2 Eos ABS# 0.4 K/ul 07/14/2016 Cbc With Differential Ord2 Baso ABS# 0.1 K/ul 07/14/2016 Comp Metabolic Nxi014 NA 139 mEq/L 07/14/2016 Comp Metabolic Dzc241 K 4.4 mEq/L 07/14/2016 Comp Metabolic Gvu219 CL 103 mEq/L 07/14/2016 Comp Metabolic Ryc572 CO2 31.0 mEq/L 07/14/2016 Comp Metabolic Rgj054 AN ION GAP 9 07/14/2016 Comp Metabolic Dzc878 GL UCOSE 109 mg/dL 07/14/2016 Comp Metabolic Ums916 Cr eat 0.9 mg/dL 07/14/2016 Comp Metabolic Ups007 eG FR 88 ml/min/1.73m2 07/14 Comp Metabolic Mqt683 BUN 12 mg/dL 07/14/2016 Comp Metabolic Ttt561 B/ C Ratio 13.6 Ratio 07/14/2016 Comp Metabolic Xea873 CA LCIUM 8.9 mg/dL 07/14/2016 Comp Metabolic Kip632 AL K PHOS 42 U/L 07/14/2016 Comp Metabolic Ddf957 T(SGOT) 14 U/L 07/14/2016 Comp Metabolic Yft180 AL T(SGPT) 13 U/L 07/14/2016 Comp Metabolic Ipy638 BI LI T 0.6 mg/dL 07/14/2016 Comp Metabolic Boc461 AL BUMIN 3.8 g/dL 07/14/2016 Comp Metabolic Afz481 TP RO 6.2 g/dL 07/14/2016 Comp Metabolic Lcv022 GL OB 2.4 g/dL 07/14/2016 Comp Metabolic Epg502 A/ G Ratio 1.6 Ratio 07/14/2016 Comp Metabolic Ned441 Os mo 278 mOsmo 07/14/2016 %Hba1C Bab938 % HbA1c 28287-1 5.8 % 07/14/2016 %Hba1C Gwx108 Gluc Ave 120 mg/dL 07/14/2016 Cbc With [...] 31.3 pg 01/15/2016 Cbc With Differential Ord2 Dane% 8.4 % 01/15/2016 Cbc With Differential Ord2 [...] 2.53 K/ul 01/15/2016 Cbc With Differential Ord2 Dane ABS# 0.8 K/ul 01/15/2016 Cbc With Differential Ord2 Eos ABS# 0.5 K/ul 01/15/2016 Cbc With Differential Ord2 Baso ABS# 0.1 K/ul 01/15/2016 Lipid Ord30 CHOL 119 mg/dL 01/15/2016 Lipid Ord30 HDL 32.0 mg/dl 01/15/2016 Lipid Ord30 TRIG 120 mg/dL 01/15/2016 Lipid Ord30 LDL 63 mg/dL 01/15/2016 Lipid Ord30 C/HDL 3.7 Ratio 01/15/2016 %Hba1C Ctd734 % HbA1c 97886-1 5.9 % 01/15/2016 %Hba1C Mvm628 Gluc Ave 123 mg/dL 01/15/2016 Tsh Ord6 hTSH II 2.98 uIU/mL 01/15/2016 Comp Metabolic Bha964 NA 137 mEq/L 01/15/2016 Comp Metabolic Eti626 K 3.9 mEq/L 01/15/2016 Comp Metabolic Tuj291 CL 104 mEq/L 01/15/2016 Comp Metabolic Mes304 CO2 26.0 mEq/L 01/15/2016 Comp Metabolic Ome446 AN ION GAP 11 01/15/2016 Comp Metabolic Hex900 GL UCOSE 113 mg/dL 01/15/2016 Comp Metabolic Bbj582 Cr eat 0.8 mg/dL 01/15/2016 Comp Metabolic Rkx263 eG FR 101 ml/min/1.73m2 12/28 Comp Metabolic Sfi970 BUN 10 mg/dL 01/15/2016 Comp Metabolic Sqa733 B/ C Ratio 12.8 Ratio 01/15/2016 Comp Metabolic Xxy677 CA LCIUM 9.1 mg/dL 01/15/2016 Comp Metabolic Wog093 AL K PHOS 51 U/L 01/15/2016 Comp Metabolic Vua847 T(SGOT) 16 U/L 01/15/2016 Comp Metabolic Jnx688 AL T(SGPT) 17 U/L 01/15/2016 Comp Metabolic Tmp722 BI LI T 0.7 mg/dL 01/15/2016 Comp Metabolic Zwl271 AL BUMIN 3.9 g/dL 01/15/2016 Comp Metabolic Mfj610 TP RO 6.4 g/dL 01/15/2016 Comp Metabolic Qnn437 GL OB 2.5 g/dL 01/15/2016 Comp Metabolic Kal675 A/ G Ratio 1.5 Ratio 01/15/2016 Comp Metabolic Pyf778 Os mo 274 mOsmo 01/15/2016 Cbc With [...] 31.2 pg 07/10/2015 Cbc With Differential Ord2 Dane% 8.5 % 07/10/2015 Cbc With Differential Ord2 [...] 2.86 K/ul 07/10/2015 Cbc With Differential Ord2 Dane ABS# 0.7 K/ul 07/10/2015 Cbc With Differential Ord2 Eos ABS# 0.3 K/ul 07/10/2015 Cbc With Differential Ord2 Baso ABS# 0.0 K/ul 07/10/2015 Cbc With Differential Ord2 New Analyzer Notice Please note new ref ranges s tarting 03-11-2015 due to implemntation of new five part differential hematolgy analyzer. 07/10/2015 Tsh Ord6 hTSH II 3.50 uIU/mL 07/10/2015 Comp Metabolic Hap923 NA 138 mEq/L 07/10/2015 Comp Metabolic Tnw105 K 4.5 mEq/L 07/10/2015 Comp Metabolic Fjm531 CL 102 mEq/L 07/10/2015 Comp Metabolic Qiz280 CO2 29.0 mEq/L 07/10/2015 Comp Metabolic Str043 AN ION GAP 12 07/10/2015 Comp Metabolic Zqv571 GL UCOSE 105 mg/dL 07/10/2015 Comp Metabolic Hod453 Cr eat 0.9 mg/dL 07/10/2015 Comp Metabolic Xry364 eG FR 85 ml/min/1.73m2 07/09 Comp Metabolic Nra126 BUN 12 mg/dL 07/10/2015 Comp Metabolic Nle394 B/ C Ratio 13.2 Ratio 07/10/2015 Comp Metabolic Zeh111 CA LCIUM 9.1 mg/dL 07/10/2015 Comp Metabolic Cwj782 AL K PHOS 43 U/L 07/10/2015 Comp Metabolic Qzr235 T(SGOT) 21 U/L 07/10/2015 Comp Metabolic Nxt207 AL T(SGPT) 21 U/L 07/10/2015 Comp Metabolic Edx523 BI LI T 0.5 mg/dL 07/10/2015 Comp Metabolic Pay818 AL BUMIN 4.0 g/dL 07/10/2015 Comp Metabolic Ilw423 TP RO 6.4 g/dL 07/10/2015 Comp Metabolic Ioz511 GL OB 2.4 g/dL 07/10/2015 Comp Metabolic Jgx689 A/ G Ratio 1.6 Ratio 07/10/2015 Comp Metabolic Svn377 Os mo 276 mOsmo 07/10/2015 Lipid Ord30 CHOL 121 mg/dL 07/10/2015 Lipid Ord30 HDL 33.0 mg/dl 07/10/2015 Lipid Ord30 TRIG 99 mg/dL 07/10/2015 Lipid Ord30 LDL 68 mg/dL 07/10/2015 Lipid Ord30 C/HDL 3.7 Ratio 07/10/2015 %Hba1C Tzc051 % HbA1c 30936-8 6.0 % 07/10/2015 %Hba1C Cun210 Gluc Ave 126 mg/dL 07/10/2015 Comp Metabolic Jxt461 NA 136 mEq/L 12/04/2014 Comp Metabolic Hza082 K 4.1 mEq/L 12/04/2014 Comp Metabolic Btu078 CL 103 mEq/L 12/04/2014 Comp Metabolic Rlp383 CO2 28.0 mEq/L 12/04/2014 Comp Metabolic Gwl418 AN ION GAP 9 12/04/2014 Comp Metabolic Usf398 GL UCOSE 118 mg/dL 12/04/2014 Comp Metabolic Sre212 Cr eat 0.9 mg/dL 12/04/2014 Comp Metabolic Okr597 eG FR 88 ml/min/1.73m2 12/04 Comp Metabolic Skm437 BUN 10 mg/dL 12/04/2014 Comp Metabolic Pei950 B/ C Ratio 11.4 Ratio 12/04/2014 Comp Metabolic Ubm349 CA LCIUM 9.4 mg/dL 12/04/2014 Comp Metabolic Rfn681 AL K PHOS 50 U/L 12/04/2014 Comp Metabolic Rmy593 T(SGOT) 17 U/L 12/04/2014 Comp Metabolic Wir404 AL T(SGPT) 17 U/L 12/04/2014 Comp Metabolic Ezy938 BI LI T 0.7 mg/dL 12/04/2014 Comp Metabolic Zmg500 AL BUMIN 4.1 g/dL 12/04/2014 Comp Metabolic Pso699 TP RO 6.4 g/dL 12/04/2014 Comp Metabolic Htl658 GL OB 2.3 g/dL 12/04/2014 Comp Metabolic Hxh572 A/ G Ratio 1.8 Ratio 12/04/2014 Comp Metabolic Oup164 Os mo 272 mOsmo 12/04/2014 Tsh Ord6 hTSH II 4.00 uIU/mL 12/04/2014 %Hba1C Aur426 % HbA1c 05447-2 6.2 % 12/04/2014 %Hba1C Mlq502 Gluc Ave 131 mg/dL 12/04/2014 Cbc With [...] Result Effective Dates Constitutional No recent illness 04/18/2018 Constitutional No [...] eminence Procedures Procedure Codes Date DESTRUCT PREMALG LES 2-14 CPT-4: 73382 01/16/2018 DESTRUCT PREMALG LESION CPT-4: 60659 01/16/2018 DESTRUCT PREMALG LESION CPT-4: 60085 07/19/2016 DESTRUCT PREMALG LES 2-14 CPT-4: 19633 07/19/2016 DESTRUCT PREMALG LESION CPT-4: 05051 01/13/2015 DESTRUCT PREMALG LES 2-14 CPT-4: 96366 01/13/2015 Vital Signs Date Vital 04/18/2018 Blood Pressure 1: 140/72 Code: 8480-6 BMI: 32.8 Code: 62333-5 Heart Rate 1: 52 bpm Height: 5'11" SpO2: 97% Weight: 235 lbs 03/13/2018 Blood Pressure 1: 150/80 Code: 8480-6 BMI: 32.5 Code: 45957-9 Heart Rate 1: 77 bpm Height: 5'11" SpO2: 97% Weight: 233 lbs 01/16/2018 Blood Pressure 1: 138/72 Code: 8480-6 BMI: 32.5 Code: 69379-5 Heart Rate 1: 54 bpm Height: 5'11" SpO2: 95% Weight: 233 lbs 07/18/2017 Blood Pressure 1: 138/68 Code: 8480-6 BMI: 32.2 Code: 79778-5 Heart Rate 1: 59 bpm Height: 5'11" SpO2: 96% Weight: 231 lbs 01/17/2017 Blood Pressure 1: 140/78 Code: 8480-6 BMI: 32.5 Code: 65264-5 Heart Rate 1: 52 bpm Height: 5'11" SpO2: 98% Weight: 233 lbs 07/19/2016 Blood Pressure 1: 140/74 Code: 8480-6 BMI: 32.4 Code: 02171-4 Heart Rate 1: 57 bpm Height: 5'11" SpO2: 95% Weight: 232 lbs 01/19/2016 Blood Pressure 1: 132/60 Code: 8480-6 BMI: 32.9 Code: 30327-9 Heart Rate 1: 58 bpm Height: 5'11" SpO2: 96% Weight: 236 lbs 07/22/2015 Blood Pressure 1: 158/78 Code: 8480-6 Blood Pressure 1: 150/78 Code: 8480-6 BMI: 31.9 Code: 33933-5 Heart Rate 1: 55 bpm Height: 5'11" SpO2: 98% Weight: 229 lbs 01/13/2015 Blood Pressure 1: 146/74 Code: 8480-6 BMI: 32.2 Code: 76995-2 Heart Rate 1: 63 bpm Height: 5'11" SpO2: 97% Weight: 231 lbs 12/03/2014 Blood Pressure 1: 142/78 Code: 8480-6 Blood Pressure 1: 128/75 Code: 8480-6 BMI: 32.4 Code: 60781-2 Heart Rate 1: 57 bpm Height: 5'11" SpO2: 95% Weight: 232 lbs 06/04/2014 Blood Pressure 1: 138/78 Code: 8480-6 BMI: 32.5 Code: 08349-5 Heart Rate 1: 56 bpm Height: 5'11" SpO2: 96% Weight: 233 lbs 12/10/2013 Blood Pressure 1: 122/78 Code: 8480-6 BMI: 32.2 Code: 14330-3 Heart Rate 1: 76 bpm Height: 5'11" Weight: 231 lbs Functional Status No Functional Status data History of Present Illness Symptom Name Status Resu lt Effective Date Notes Location on both hands 04/18/2018 None Quality [...] ies lightheadedness 03/13/2018 None skin lesion 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 P ATIENT, LEVEL III Diagnosis: Essential tremor[ICD10: G25.0] Renita Roberson MD, [facility] CPT-4: 66499 04/18/2018 [id number]) [id number] EST. P ATIENT, LEVEL IV Diagnosis: Essential tremor[ICD10: G25.0] Diagnosis: Essential (primary) hypertension[ICD10: I10] Renita Roberson MD, [facility] CPT-4: 10430 03/13/2018 [id number]) [id number] EST. P ATIENT, LEVEL IV Diagnosis: Type 2 diabetes mellitus without complications[ICD10: E11.9] Diagnosis: Essential (primary) hypertension[ICD10: I10] Diagnosis: Actinic keratosis[ICD10: L57.0] Diagnosis: Lumbago with sciatica, right side[ICD10: M54.41] Renita Roberson MD, [facility] CPT-4: 29098 01/16/2018 [id number]) [id number] EST. P ATIENT, LEVEL IV Diagnosis: Essential (primary) hypertension[ICD10: I10] Diagnosis: Type 2 diabetes mellitus without complications[ICD10: E11.9] Diagnosis: Actinic keratosis[ICD10: L57.0] Diagnosis: Mixed hyperlipidemia[ICD10: E78.2] Irlanda Roberson MD, [facility] CPT-4: 69823 07/18/2017 ([id number]) 12129 EST. P ATIENT, LEVEL IV Diagnosis: Essential (primary) hypertension[ICD10: I10] Diagnosis: Type 2 diabetes mellitus without complications[ICD10: E11.9] Diagnosis: Hypothyroidism, unspecified[ICD10: E03.9] Diagnosis: Actinic keratosis[ICD10: L57.0] Irlanda Roberson MD, [facility] CPT- 4: 58756 01/17/2017 ([id number]) [id number] EST. P ATIENT, LEVEL III Diagnosis: Essential (primary) hypertension[ICD10: I10] Diagnosis: Mixed hyperlipidemia[ICD10: E78.2] Diagnosis: Type 2 diabetes mellitus without complications[ICD10: E11.9] Diagnosis: Actinic keratosis[ICD10: L57.0] Irlanda Roberson MD, [facility] CPT- 4: 73309 07/19/2016 ([id number]) 40909 EST. P ATIENT, LEVEL IV Diagnosis: Essential (primary) hypertension[ICD10: I10] Diagnosis: Type 2 diabetes mellitus without complications[ICD10: E11.9] Diagnosis: Mixed hyperlipidemia[ICD10: E78.2] Renita Roberson MD, [facility] CPT- 4: 20488 01/19/2016 [id number] EST. PATIENT, LEVEL IV Diagnosis: Essential (primary) hypertension[ICD10: I10] Diagnosis: Type 2 diabetes mellitus without complications[ICD10: E11.9] Marielle Roberson MD, [facility] CPT-4: 66145 07/22/2015 ([id number]) [id number] EST. P ATIENT, LEVEL III Diagnosis: Essential (primary) hypertension[ICD10: I10] Diagnosis: Actinic keratosis[ICD10: L57.0] Diagnosis: Personal history of diseases of the skin and subcutaneous tissue[ICD10: Z87.2] Renita Roberson MD, [facility] CPT-4: 66172 01/13/2015 ([id number]) [id number] EST. P ATIENT, LEVEL IV Diagnosis: Essential (primary) hypertension[ICD10: I10] Diagnosis: Other abnormal glucose[ICD10: R73.09] Renita Roberson MD, [facility] CPT-4: 59838 12/03/2014 ([id number] EST. P [facility], LEVEL IV Diagnosis: ESSENTIAL HYPERTENSION[ICD9: 401.9] Diagnosis: Benign paroxysmal positional vertigo[ICD9: 386.11] Renita Roberson MD, C CPT-4: 72967 06/04/2014 ([id number]) OFFICE VISI T, NEW - LEVEL 4 Diagnosis: ESSENTIAL HYPERTENSION[ICD9: 401.9] Diagnosis: Wrist pain, chronic[ICD9: 719.43] Diagnosis: Benign paroxysmal positional vertigo[ICD9: 386.11] Renita Roberson MD, C CPT-4: 28924 12/10/2013 Plan of Care Planned Activity Notes C odes Status Date Visit Plan: Essential tremor - incr ease the requip to 0.25mg - 1.5 pills twice daily x 4 days then increase to 0.5mg (two pills) twice daily - I sent the new RX to the [facility] - you can call the pharmacy when you are ready to warp picker this higher dose. 04/18/2018 Patient Education: Patient Medication Summary Completed [...] at home. 03/13/2018 Appointment: Renita Roberson [facility]Ptel[facility] [place] (15 min) Moderate 03/13/2018 Patient Education: Patient [...] healing. 01/16/2018 Appointment: Renita Roberson [facility] [phone] [facility] (15 min) Moderate 01/16/2018 Patient Education: [...] office 07/18/2017 [phone] ([facility] min) Complex 07/18/2017 Patient Education: Patient [...] office 01/17/2017 Appointment: [facility]erta [phone] [phone] (30 min) Complex 01/17/2017 Patient Education: Patient [...] nose 07/19/2016 Appointment: [phone] [phone] (30 min) Complex 07/19/2016 Patient Education: Patient Medication Summary Completed 07/19/2016 Patient Education: Obesity Completed 07/19/2016 Patient Education: Patient Medication Summary Completed 07/14/2016 App[facility]ment: [phone] [facility] [facility] [place] - Annual Wellness Visit 01/28/2016 Appointment: Bradley [facility]land[phone] [phone] [facility] [place] [facility] - Annual Wellness Visit 01/26/2016 Visit Plan: [...] me dications. 01/19/2016 Appointment: Ren[facility]erson [phone] [facility] (15 min) Moderate 01/19/2016 Patient Education: [...] 01/13/2015 Appointment: Renita Roberson WPtel: [phone] [facility] (15 min) Moderate 01/13/2015 Patient Education: Patient [...] metformin 12/03/2014 Appointment: Renita Roberson WPtel: [phone] [facility] Follow up 12/03/2014 Patient Education: Patient [...] instructions/medication interventions. 06/04/2014 Appointment: Renita Roberson WPtel: [address] [place] [address] Follow up 06/04/2014 Patient Education: Patient Medication Summary Completed 06/04/2014 Patient Education: Hypertension Completed 06/04/2014 Care Plan: Referral Order SNOMED-CT : [id number] Ordered 06/04/2014 Visit Plan: Hypertension - well [...] Dr. Starr. 12/10/2013 Appointment: Renita Roberson WPtel: [address] [place], [place] [id number] bringing in new pt paperwork New Patient 12/10/2013 Patient Education: Patient Medication Summary Completed 12/10/2013 Patient Education: Hypertension Completed 12/10/2013 Referral: Don Rodriguez WPtel: [phone] [facility] [place] Referral Appointment Requested Instructions Comment increase the requip to 0.25mg - 1.5 pills twice daily x 4 days then increase to 0.5mg (two pills) twice daily - I sent the new RX to the [facility] - you can call the pharmacy when you are ready to warp picker this higher dose. . Essential tremor - increase the requip to 0.25mg - 1.5 pills twice daily x 4 days then increase to 0.5mg (two pills) twice daily - I sent the new RX to the [facility] - you can call the pharmacy when you are ready to warp picker this higher dose. . Diabetes Mellitus [...]
--- OUTSIDE RECORDS SUMMARY | 2019-06-22 15:24 | XMS REPORT | CCD ---
Author Author Ravinder Roberson Organization Renita Roberson MD, [facility] Address [address] [place] [address] Phone Care Team Providers Care Temperature Regulator Name Role Phone PP Unavailable CCM Unavailable Summary Purpose Interface Exchange Insurance Providers Payer name Policy type / Coverage type Covered constitution party ID Effective Begin Date Effective End Date WPS Medicare Part B Medicare Part B [id number] Unknown [facility] icare Part B [id number] Un known Family history Father Diagnosis Age At Onset Hypertension Unknown Brother Diagnosis Age At Onset Coronary Artery Disease Unknown Cancer Unknown Hypertension Unknown Mother Diagnosis Age At Onset Hypertension Unknown Social History Social History Element Codes Description Effective Dates Marital status Unknown M arried 12/10/2013 Number of children Unknown 2 12/10/2013 Employment Unknown Retir ed 12/10/[address]: 6323476 Former smoker quit 1980 12/10/[address]: 100289610 Never drinks alcohol 12/10/2013 Allergies, Adverse Reactions, [...] ICD-9: 401.9 ICD-10: I10 Active 12/10/2013 Unknown Essential tremor ICD-9: 333.1 ICD-10: G25.0 Active 03/13/2018 Unknown Sciatica Unknown Active 01/16/2018 Unknow n [...] hypertension ICD-9: 401.9 ICD-10: I10 12/10/2013 Active Essential tremor ICD-9: 333.1 ICD-10: G25.0 03/13/2018 Active Sciatica Unknown 01/16/2018 Active Actinic keratosis [...] Date Stop Date Sta tus Fill Instructions amlodipine 5 mg tablet RxNorm: 585753 1 Tablet(s) PO daily by Dr. Jade 03/13/2018 No Stop Date Active Requip 0.25 mg tablet RxNorm: 818750 1 Tablet(s) PO BID morning and early remi felecia 03/13/2018 10/08/2018 Ac tive triamcinolone aceton andrews 0.1 % topical cream RxNorm: 5071415 1 Application TOP BI D as needed 01/16/2018 05/15/2018 Active he would like 3 15 gram tube s triamcinolone aceton andrews 0.1 % topical cream RxNorm: 4527007 1 Application TOP BI D as needed 01/16/2018 01/15/2018 Inactive he would like 3 15 gram tub es amlodipine 10 mg tablet RxNorm: 087712 1 Tablet(s) PO daily by Dr. Jade 01/16/2018 03/12/2018 In active metformin ER 500 mg tablet,extended release 24hr RxNorm: 5484647 TAKE ONE TABLET BY MOUTH TWICE DAILY 12/04/2017 No Stop Date Active metformin ER 500 mg tablet,extended release 24hr RxNorm: 9011005 TAKE ONE TABLET BY MOUTH TWICE DAILY 03/22/2017 12/03/2017 Inactive Tylenol PM Extra Str ength 25 mg-500 mg tablet RxNorm: 9317919 1 Tablet(s) PO QHS 01/17/2017 No Stop Date Active triamcinolone aceton andrews 0.1 % topical cream RxNorm: 5381939 1 Application TOP BI D as needed 01/17/2017 05/16/2017 Inactive metformin ER 500 mg tablet,extended release 24hr RxNorm: 645922 TAKE ONE TABLET BY MOUTH TWICE DAILY 09/27/2016 03/21/2017 Inactive triamcinolone aceton andrews 0.1 % topical cream RxNorm: 7664168 1 Application TOP BI D as needed 07/19/2016 09/16/2016 Inactive metformin ER 500 mg tablet,extended release 24hr RxNorm: 901914 1 Tablet(s) PO BID 08/19/2015 09/26/2016 In active metformin ER 500 mg tablet,extended release 24hr RxNorm: 477071 1 Tablet(s) PO BID 08/14/2015 08/18/2015 In active metformin ER 500 mg tablet,extended release 24hr RxNorm: 649317 1 Tablet(s) PO BID 04/09/2015 08/13/2015 In active triamcinolone aceton andrews 0.1 % topical cream RxNorm: 8949733 1 Application TOP BI D as needed 01/13/2015 07/18/2016 Inactive Flonase Allergy Reli ef 50 mcg/actuation nasal spray,suspension RxNorm: 1 Mcroberts NASAL BID 12/03/2014 01/12/2015 Inactive triamcinolone aceton andrews 0.1 % topical cream RxNorm: 6560695 1 Application TOP BI D as needed 06/04/2014 01/12/2015 Inactive metformin ER 500 mg tablet,extended release 24hr RxNorm: 049191 1 Tablet(s) PO BID 03/05/2014 04/08/2015 In active multivitamin oral RxNorm: 70672 oral No Start Date Active Vitamin B-12 oral RxNorm: 07641 oral No Start Date Active Baby Aspirin 81 mg c hewable tablet RxNorm: 084253 1 Tablet(s) PO daily No Start Date Active Inderal LA 160 mg ca psule,extended release RxNorm: 981954 1 Capsule(s) PO daily No Start Date Active simvastatin 10 mg ta blet RxNorm: 580765 1 Tablet(s) PO daily No Start Date Active amlodipine 5 mg tablet RxNorm: 222040 1 Tablet(s) PO daily No Start Date 01/15/2018 Inactive multivitamin tablet RxNorm: 1 Tablet(s) PO daily No Start Date 01/16/2017 Inactive tramadol 50 mg tablet RxNorm: 839504 1 Tablet(s) PO TID No Start Date 07/21/2015 Inactive Tylenol PM Extra Str ength 25 mg-500 mg tablet RxNorm: 8563867 2 Tablet(s) PO QHS No Start Date 01/16/2017 Inactive metformin ER 500 mg tablet,extended release 24hr RxNorm: 799761 1 Tablet(s) PO BID No Start Date 03/04/2014 Inactive Methotrexate (Anti-R heumatic) 2.5 mg tablet RxNorm: 131155 8 Tablet(s) PO one ti me per week No Start Date 07/21/2015 Inactive Protonix 40 mg table t,delayed release RxNorm: 615668 1 Tablet(s) PO daily No Start Date 12/02/2014 Inactive Vitamin B-12 1,000 m cg tablet RxNorm: 208931 1 Tablet(s) PO daily No Start Date 01/16/2017 Inactive propranolol ER 120 m g capsule,24 hr,extended release RxNorm: 635301 1 Capsule(s) PO daily No Start Date 07/17/2017 Inactive Medication Administered No Medication Administered data Immunizations Vaccine Codes Date Status Influenza CVX: 141 11/27 completed Assessments Condition Codes Effectiv e Dates Essential (primary) hypertension ICD -10: I10 ICD-9: 401.9 03/13/2018 Essential tremor ICD-10: G25.0 ICD-9: 333.1 03/13/2018 Lumbago with sciatica, right side IC [...] Visit Effective Dates Notes dyskinesia or tremor 03/13/2018 skin lesion 01/16/2018 [...] 32.0 % 01/11/2018 Cbc With Differential Ord2 Bent% 8.8 % 01/11/2018 Cbc With Differential Ord2 MCH 31.0 pg 01/11/2018 Cbc With Differential Ord2 Eos% 3.8 % 01/11/2018 Cbc With Differential Ord2 MCHC 33.3 pg 01/11/2018 Cbc With Differential Ord2 Baso% 0.6 % 01/11/2018 Cbc With Differential Ord2 PLT 228 K/ul 01/11/2018 Cbc With Differential Ord2 RDW 13.4 % 01/11/2018 Cbc With Differential Ord2 Neut ABS# 4.96 K/ul 01/11/2018 Cbc With Differential Ord2 Lymph ABS# 2.90 K/ul 01/11/2018 Cbc With Differential Ord2 Bent ABS# 0.8 K/ul 01/11/2018 Cbc With Differential Ord2 Eos ABS# 0.3 K/ul 01/11/2018 Cbc With Differential Ord2 Baso ABS# 0.1 K/ul 01/11/2018 %Hba1C Nmf201 % HbA1c 37324-8 6.0 % 01/11/2018 %Hba1C Otf276 Gluc Ave 126 mg/dL 01/11/2018 Tsh Ord6 TSH (3rd IS) 5.07 uIU/mL 01/11/2018 Lipid Ord30 CHOL 131 mg/dL 01/11/2018 Lipid Ord30 HDL 36.0 mg/dl 01/11/2018 Lipid Ord30 TRIG 59 mg/dL 01/11/2018 Lipid Ord30 LDL 83 mg/dL 01/11/2018 Lipid Ord30 C/HDL 3.6 Ratio 01/11/2018 Free T4 Quj552 FREE T4 1.00 ng/dL 01/11/2018 Comp Metabolic Jec631 NA 141 mEq/L 01/11/2018 Comp Metabolic Ftz016 K 4.1 mEq/L 01/11/2018 Comp Metabolic Lvo205 CL 104 mEq/L 01/11/2018 Comp Metabolic Lem858 CO2 30.0 mEq/L 01/11/2018 Comp Metabolic Yno275 AN ION GAP 11 01/11/2018 Comp Metabolic Vva194 GL UCOSE 131 mg/dL 01/11/2018 Comp Metabolic Ngc314 Cr eat 0.9 mg/dL 01/11/2018 Comp Metabolic Eel909 eG FR 86 ml/min/1.73m2 01/11 Comp Metabolic Ghb609 BUN 10 mg/dL 01/11/2018 Comp Metabolic Pze299 B/ C Ratio 11.2 Ratio 01/11/2018 Comp Metabolic Lhf175 CA LCIUM 9.1 mg/dL 01/11/2018 Comp Metabolic Pqv390 AL K PHOS 49 U/L 01/11/2018 Comp Metabolic Vai537 T(SGOT) 14 U/L 01/11/2018 Comp Metabolic Ney040 AL T(SGPT) 13 U/L 01/11/2018 Comp Metabolic Yba684 BI LI T 0.6 mg/dL 01/11/2018 Comp Metabolic Gyf890 AL BUMIN 4.0 g/dL 01/11/2018 Comp Metabolic Cll604 TP RO 6.4 g/dL 01/11/2018 Comp Metabolic Vmv688 GL OB 2.4 g/dL 01/11/2018 Comp Metabolic Vpj031 A/ G Ratio 1.6 Ratio 01/11/2018 Comp Metabolic Ksq923 Os mo 282 mOsmo 01/11/2018 %Hba1C Qbi996 % HbA1c 45971-3 6.2 % 07/14/2017 %Hba1C Cbn920 Gluc Ave 131 mg/dL 07/14/2017 Cbc With [...] 29.9 % 07/14/2017 Cbc With Differential Ord2 Bent% 8.5 % 07/14/2017 Cbc With Differential Ord2 MCH 31.1 pg 07/14/2017 Cbc With Differential Ord2 MCHC 33.8 pg 07/14/2017 Cbc With Differential Ord2 Eos% 3.9 % 07/14/2017 Cbc With Differential Ord2 PLT 241 K/ul 07/14/2017 Cbc With Differential Ord2 Baso% 0.4 % 07/14/2017 Cbc With Differential Ord2 RDW 13.9 % 07/14/2017 Cbc With Differential Ord2 Neut ABS# 5.29 K/ul 07/14/2017 Cbc With Differential Ord2 Lymph ABS# 2.76 K/ul 07/14/2017 Cbc With Differential Ord2 Bent ABS# 0.8 K/ul 07/14/2017 Cbc With Differential Ord2 Eos ABS# 0.4 K/ul 07/14/2017 Cbc With Differential Ord2 Baso ABS# 0.0 K/ul 07/14/2017 Free T4 Glq789 FREE T4 0.97 ng/dL 07/14/2017 Tsh Ord6 TSH (3rd IS) 4.46 uIU/mL 07/14/2017 Comp Metabolic Mib432 NA 140 mEq/L 07/14/2017 Comp Metabolic Zly332 K 4.2 mEq/L 07/14/2017 Comp Metabolic Hle255 CL 103 mEq/L 07/14/2017 Comp Metabolic Bgz622 CO2 29.0 mEq/L 07/14/2017 Comp Metabolic Ykq446 AN ION GAP 12 07/14/2017 Comp Metabolic Wvb296 GL UCOSE 127 mg/dL 07/14/2017 Comp Metabolic Woe411 Cr eat 0.9 mg/dL 07/14/2017 Comp Metabolic Won513 eG FR 90 ml/min/1.73m2 07/14 Comp Metabolic Bmi726 BUN 8 mg/dL 07/14/2017 Comp Metabolic Bzv447 B/ C Ratio 9.3 Ratio 07/14/2017 Comp Metabolic Mlr914 CA LCIUM 9.5 mg/dL 07/14/2017 Comp Metabolic Olh448 AL K PHOS 77 U/L 07/14/2017 Comp Metabolic Ndf200 T(SGOT) 18 U/L 07/14/2017 Comp Metabolic Tav042 AL T(SGPT) 20 U/L 07/14/2017 Comp Metabolic Aww861 BI LI T 0.7 mg/dL 07/14/2017 Comp Metabolic Kns751 AL BUMIN 4.4 g/dL 07/14/2017 Comp Metabolic Ikz350 TP RO 6.9 g/dL 07/14/2017 Comp Metabolic Cup957 GL OB 2.6 g/dL 07/14/2017 Comp Metabolic Miu790 A/ G Ratio 1.7 Ratio 07/14/2017 Comp Metabolic Olo384 Os mo 279 mOsmo 07/14/2017 Free T4 Kjk801 FREE T4 0.97 ng/dL 04/21/2017 Tsh Ord6 TSH (3rd IS) 4.44 uIU/mL 04/21/2017 %Hba1C Kmr564 % HbA1c 26541-3 6.3 % 01/06/2017 %Hba1C Xxm270 Gluc Ave 134 mg/dL 01/06/2017 Cbc With [...] 31.3 pg 01/06/2017 Cbc With Differential Ord2 Bent% 9.2 % 01/06/2017 Cbc With Differential Ord2 [...] 3.60 K/ul 01/06/2017 Cbc With Differential Ord2 Bent ABS# 0.9 K/ul 01/06/2017 Cbc With Differential Ord2 Eos ABS# 0.3 K/ul 01/06/2017 Cbc With Differential Ord2 Baso ABS# 0.0 K/ul 01/06/2017 Lipid Ord30 CHOL 134 mg/dL 01/06/2017 Lipid Ord30 HDL 35.0 mg/dl 01/06/2017 Lipid Ord30 TRIG 111 mg/dL 01/06/2017 Lipid Ord30 LDL 77 mg/dL 01/06/2017 Lipid Ord30 C/HDL 3.8 Ratio 01/06/2017 Comp Metabolic Xhy668 NA 139 mEq/L 01/06/2017 Comp Metabolic Zhr468 K 4.2 mEq/L 01/06/2017 Comp Metabolic Kts688 CL 103 mEq/L 01/06/2017 Comp Metabolic Onj900 CO2 29.0 mEq/L 01/06/2017 Comp Metabolic Won158 AN ION GAP 11 01/06/2017 Comp Metabolic Xfh006 GL UCOSE 121 mg/dL 01/06/2017 Comp Metabolic Exo849 Cr eat 0.8 mg/dL 01/06/2017 Comp Metabolic Xqj250 eG FR 101 ml/min/1.73m2 12/28 Comp Metabolic Vze371 BUN 9 mg/dL 01/06/2017 Comp Metabolic Iff144 B/ C Ratio 11.5 Ratio 01/06/2017 Comp Metabolic Rjn271 CA LCIUM 9.3 mg/dL 01/06/2017 Comp Metabolic Zao556 AL K PHOS 48 U/L 01/06/2017 Comp Metabolic Jsw065 T(SGOT) 15 U/L 01/06/2017 Comp Metabolic Mqv713 AL T(SGPT) 17 U/L 01/06/2017 Comp Metabolic Ubx266 BI LI T 0.6 mg/dL 01/06/2017 Comp Metabolic Ory666 AL BUMIN 4.0 g/dL 01/06/2017 Comp Metabolic Eqi503 TP RO 6.4 g/dL 01/06/2017 Comp Metabolic Xkp992 GL OB 2.4 g/dL 01/06/2017 Comp Metabolic Yea350 A/ G Ratio 1.7 Ratio 01/06/2017 Comp Metabolic Aft674 Os mo 277 mOsmo 01/06/2017 Tsh Ord6 [...] 30.9 pg 07/14/2016 Cbc With Differential Ord2 Bent% 8.4 % 07/14/2016 Cbc With Differential Ord2 Eos% 5.3 % 07/14/2016 Cbc With Differential Ord2 MCHC 33.6 pg 07/14/2016 Cbc With Differential Ord2 PLT 210 K/ul 07/14/2016 Cbc With Differential Ord2 Baso% 0.6 % 07/14/2016 Cbc With Differential Ord2 RDW 13.8 % 07/14/2016 Cbc With Differential Ord2 Neut ABS# 4.56 K/ul 07/14/2016 Cbc With Differential Ord2 Lymph ABS# 2.34 K/ul 07/14/2016 Cbc With Differential Ord2 Bent ABS# 0.7 K/ul 07/14/2016 Cbc With Differential Ord2 Eos ABS# 0.4 K/ul 07/14/2016 Cbc With Differential Ord2 Baso ABS# 0.1 K/ul 07/14/2016 Comp Metabolic Efz353 NA 139 mEq/L 07/14/2016 Comp Metabolic Ujh543 K 4.4 mEq/L 07/14/2016 Comp Metabolic Avj377 CL 103 mEq/L 07/14/2016 Comp Metabolic Vvi613 CO2 31.0 mEq/L 07/14/2016 Comp Metabolic Rib149 AN ION GAP 9 07/14/2016 Comp Metabolic Yra055 GL UCOSE 109 mg/dL 07/14/2016 Comp Metabolic Tbd516 Cr eat 0.9 mg/dL 07/14/2016 Comp Metabolic Vot927 eG FR 88 ml/min/1.73m2 07/14 Comp Metabolic Dta296 BUN 12 mg/dL 07/14/2016 Comp Metabolic Ijb464 B/ C Ratio 13.6 Ratio 07/14/2016 Comp Metabolic Gkq335 CA LCIUM 8.9 mg/dL 07/14/2016 Comp Metabolic Qno434 AL K PHOS 42 U/L 07/14/2016 Comp Metabolic Hkl113 T(SGOT) 14 U/L 07/14/2016 Comp Metabolic Acz710 AL T(SGPT) 13 U/L 07/14/2016 Comp Metabolic Fjm632 BI LI T 0.6 mg/dL 07/14/2016 Comp Metabolic Upy267 AL BUMIN 3.8 g/dL 07/14/2016 Comp Metabolic Pst279 TP RO 6.2 g/dL 07/14/2016 Comp Metabolic Gfd272 GL OB 2.4 g/dL 07/14/2016 Comp Metabolic Qab046 A/ G Ratio 1.6 Ratio 07/14/2016 Comp Metabolic Yoy327 Os mo 278 mOsmo 07/14/2016 %Hba1C Qxm504 % HbA1c 39508-5 5.8 % 07/14/2016 %Hba1C Lkq825 Gluc Ave 120 mg/dL 07/14/2016 Cbc With [...] 31.3 pg 01/15/2016 Cbc With Differential Ord2 Bent% 8.4 % 01/15/2016 Cbc With Differential Ord2 Eos% 6.0 % 01/15/2016 Cbc With Differential Ord2 MCHC 34.2 pg 01/15/2016 Cbc With Differential Ord2 PLT 211 K/ul 01/15/2016 Cbc With Differential Ord2 Baso% 0.6 % 01/15/2016 Cbc With Differential Ord2 RDW 13.5 % 01/15/2016 Cbc With Differential Ord2 Neut ABS# 5.15 K/ul 01/15/2016 Cbc With Differential Ord2 Lymph ABS# 2.53 K/ul 01/15/2016 Cbc With Differential Ord2 Bent ABS# 0.8 K/ul 01/15/2016 Cbc With Differential Ord2 Eos ABS# 0.5 K/ul 01/15/2016 Cbc With Differential Ord2 Baso ABS# 0.1 K/ul 01/15/2016 Lipid Ord30 CHOL 119 mg/dL 01/15/2016 Lipid Ord30 HDL 32.0 mg/dl 01/15/2016 Lipid Ord30 TRIG 120 mg/dL 01/15/2016 Lipid Ord30 LDL 63 mg/dL 01/15/2016 Lipid Ord30 C/HDL 3.7 Ratio 01/15/2016 %Hba1C Rku090 % HbA1c 44884-6 5.9 % 01/15/2016 %Hba1C Uyt187 Gluc Ave 123 mg/dL 01/15/2016 Tsh Ord6 hTSH II 2.98 uIU/mL 01/15/2016 Comp Metabolic Ecf669 NA 137 mEq/L 01/15/2016 Comp Metabolic Mon154 K 3.9 mEq/L 01/15/2016 Comp Metabolic Syr679 CL 104 mEq/L 01/15/2016 Comp Metabolic Wxo418 CO2 26.0 mEq/L 01/15/2016 Comp Metabolic Rbu128 AN ION GAP 11 01/15/2016 Comp Metabolic Uvu213 GL UCOSE 113 mg/dL 01/15/2016 Comp Metabolic Tej692 Cr eat 0.8 mg/dL 01/15/2016 Comp Metabolic Wzq825 eG FR 101 ml/min/1.73m2 12/28 Comp Metabolic Wwf726 BUN 10 mg/dL 01/15/2016 Comp Metabolic Kra171 B/ C Ratio 12.8 Ratio 01/15/2016 Comp Metabolic Alq818 CA LCIUM 9.1 mg/dL 01/15/2016 Comp Metabolic Qku659 AL K PHOS 51 U/L 01/15/2016 Comp Metabolic Bdx544 T(SGOT) 16 U/L 01/15/2016 Comp Metabolic Wje068 AL T(SGPT) 17 U/L 01/15/2016 Comp Metabolic Otk572 BI LI T 0.7 mg/dL 01/15/2016 Comp Metabolic Pmq906 AL BUMIN 3.9 g/dL 01/15/2016 Comp Metabolic Hjz145 TP RO 6.4 g/dL 01/15/2016 Comp Metabolic Tru106 GL OB 2.5 g/dL 01/15/2016 Comp Metabolic Vsh388 A/ G Ratio 1.5 Ratio 01/15/2016 Comp Metabolic Lsw578 Os mo 274 mOsmo 01/15/2016 Cbc With Differential Ord2 WBC 8.74 K/ul 07/10/2015 Cbc With Differential Ord2 RBC 4.46 M/ul 07/10/2015 Cbc With Differential Ord2 HGB 13.9 g/dl 07/10/2015 Cbc With Differential Ord2 Neut% 54.6 % 07/10/2015 Cbc With Differential Ord2 HCT 41.3 % 07/10/2015 Cbc With Differential Ord2 MCV 92.6 fl 07/10/2015 Cbc With Differential Ord2 Lymph% 32.7 % 07/10/2015 Cbc With Differential Ord2 Bent% 8.5 % 07/10/2015 Cbc With Differential Ord2 MCH 31.2 pg 07/10/2015 Cbc With Differential Ord2 MCHC 33.7 pg 07/10/2015 Cbc With Differential Ord2 Eos% 3.7 % 07/10/2015 Cbc With Differential Ord2 PLT 233 K/ul 07/10/2015 Cbc With Differential Ord2 Baso% 0.5 % 07/10/2015 Cbc With Differential Ord2 RDW 13.8 % 07/10/2015 Cbc With Differential Ord2 Neut ABS# 4.78 K/ul 07/10/2015 Cbc With Differential Ord2 Lymph ABS# 2.86 K/ul 07/10/2015 Cbc With Differential Ord2 Bent ABS# 0.7 K/ul 07/10/2015 Cbc With Differential Ord2 Eos ABS# 0.3 K/ul 07/10/2015 Cbc With Differential Ord2 Baso ABS# 0.0 K/ul 07/10/2015 Cbc With Differential Ord2 New Analyzer Notice Please note new ref ranges s tarting 03-11-2015 due to implemntation of new five part differential hematolgy analyzer. 07/10/2015 Tsh Ord6 hTSH II 3.50 uIU/mL 07/10/2015 Comp Metabolic Icp023 NA 138 mEq/L 07/10/2015 Comp Metabolic Sln990 K 4.5 mEq/L 07/10/2015 Comp Metabolic Sgt973 CL 102 mEq/L 07/10/2015 Comp Metabolic Nsx142 CO2 29.0 mEq/L 07/10/2015 Comp Metabolic Iil992 AN ION GAP 12 07/10/2015 Comp Metabolic Qxk743 GL UCOSE 105 mg/dL 07/10/2015 Comp Metabolic Uws553 Cr eat 0.9 mg/dL 07/10/2015 Comp Metabolic Ccl553 eG FR 85 ml/min/1.73m2 07/09 Comp Metabolic Dhd349 BUN 12 mg/dL 07/10/2015 Comp Metabolic Jds199 B/ C Ratio 13.2 Ratio 07/10/2015 Comp Metabolic Yrd622 CA LCIUM 9.1 mg/dL 07/10/2015 Comp Metabolic Oud513 AL K PHOS 43 U/L 07/10/2015 Comp Metabolic Zgr254 T(SGOT) 21 U/L 07/10/2015 Comp Metabolic Kwi511 AL T(SGPT) 21 U/L 07/10/2015 Comp Metabolic Wwl617 BI LI T 0.5 mg/dL 07/10/2015 Comp Metabolic Mht320 AL BUMIN 4.0 g/dL 07/10/2015 Comp Metabolic Arv220 TP RO 6.4 g/dL 07/10/2015 Comp Metabolic Xqq991 GL OB 2.4 g/dL 07/10/2015 Comp Metabolic Rar793 A/ G Ratio 1.6 Ratio 07/10/2015 Comp Metabolic Orj763 Os mo 276 mOsmo 07/10/2015 Lipid Ord30 CHOL 121 mg/dL 07/10/2015 Lipid Ord30 HDL 33.0 mg/dl 07/10/2015 Lipid Ord30 TRIG 99 mg/dL 07/10/2015 Lipid Ord30 LDL 68 mg/dL 07/10/2015 Lipid Ord30 C/HDL 3.7 Ratio 07/10/2015 %Hba1C Ziw040 % HbA1c 54007-6 6.0 % 07/10/2015 %Hba1C Cxn408 Gluc Ave 126 mg/dL 07/10/2015 Comp Metabolic Bnt533 NA 136 mEq/L 12/04/2014 Comp Metabolic Dmn955 K 4.1 mEq/L 12/04/2014 Comp Metabolic Zxj417 CL 103 mEq/L 12/04/2014 Comp Metabolic Znq863 CO2 28.0 mEq/L 12/04/2014 Comp Metabolic Pfa643 AN ION GAP 9 12/04/2014 Comp Metabolic Ekp091 GL UCOSE 118 mg/dL 12/04/2014 Comp Metabolic Xnj111 Cr eat 0.9 mg/dL 12/04/2014 Comp Metabolic Ydb403 eG FR 88 ml/min/1.73m2 12/04 Comp Metabolic Mvg096 BUN 10 mg/dL 12/04/2014 Comp Metabolic Yzg430 B/ C Ratio 11.4 Ratio 12/04/2014 Comp Metabolic Lxe284 CA LCIUM 9.4 mg/dL 12/04/2014 Comp Metabolic Kng477 AL K PHOS 50 U/L 12/04/2014 Comp Metabolic Tgt344 T(SGOT) 17 U/L 12/04/2014 Comp Metabolic Drd677 AL T(SGPT) 17 U/L 12/04/2014 Comp Metabolic Nub359 BI LI T 0.7 mg/dL 12/04/2014 Comp Metabolic Ldy950 AL BUMIN 4.1 g/dL 12/04/2014 Comp Metabolic Azu966 TP RO 6.4 g/dL 12/04/2014 Comp Metabolic Ejh996 GL OB 2.3 g/dL 12/04/2014 Comp Metabolic Zrs411 A/ G Ratio 1.8 Ratio 12/04/2014 Comp Metabolic Bhc726 Os mo 272 mOsmo 12/04/2014 Tsh Ord6 hTSH II 4.00 uIU/mL 12/04/2014 %Hba1C Ewl899 % HbA1c 82577-6 6.2 % 12/04/2014 %Hba1C Bbp803 Gluc Ave 131 mg/dL 12/04/2014 Cbc With [...] Result Effective Dates Constitutional No recent illness 03/13/2018 Constitutional No [...] Codes Date DESTRUCT PREMALG LES 2-14 CPT-4: 44220 01/16/2018 DESTRUCT PREMALG LESION CPT-4: 33499 01/16/2018 DESTRUCT PREMALG LESION CPT-4: 48492 07/19/2016 DESTRUCT PREMALG LES 2-14 CPT-4: 20583 07/19/2016 DESTRUCT PREMALG LESION CPT-4: 30253 01/13/2015 DESTRUCT PREMALG LES 2-14 CPT-4: 05683 01/13/2015 Vital Signs Date Vital 03/13/2018 Blood Pressure 1: 150/80 Code: 8480-6 BMI: 32.5 Code: 93513-2 Heart Rate 1: 77 bpm Height: 5'11" SpO2: 97% Weight: 233 lbs 01/16/2018 Blood Pressure 1: 138/72 Code: 8480-6 BMI: 32.5 Code: 34924-5 Heart Rate 1: 54 bpm Height: 5'11" SpO2: 95% Weight: 233 lbs 07/18/2017 Blood Pressure 1: 138/68 Code: 8480-6 BMI: 32.2 Code: 36311-5 Heart Rate 1: 59 bpm Height: 5'11" SpO2: 96% Weight: 231 lbs 01/17/2017 Blood Pressure 1: 140/78 Code: 8480-6 BMI: 32.5 Code: 21777-9 Heart Rate 1: 52 bpm Height: 5'11" SpO2: 98% Weight: 233 lbs 07/19/2016 Blood Pressure 1: 140/74 Code: 8480-6 BMI: 32.4 Code: 76039-8 Heart Rate 1: 57 bpm Height: 5'11" SpO2: 95% Weight: 232 lbs 01/19/2016 Blood Pressure 1: 132/60 Code: 8480-6 BMI: 32.9 Code: 03029-8 Heart Rate 1: 58 bpm Height: 5'11" SpO2: 96% Weight: 236 lbs 07/22/2015 Blood Pressure 1: 158/78 Code: 8480-6 Blood Pressure 1: 150/78 Code: 8480-6 BMI: 31.9 Code: 86788-0 Heart Rate 1: 55 bpm Height: 5'11" SpO2: 98% Weight: 229 lbs 01/13/2015 Blood Pressure 1: 146/74 Code: 8480-6 BMI: 32.2 Code: 24645-9 Heart Rate 1: 63 bpm Height: 5'11" SpO2: 97% Weight: 231 lbs 12/03/2014 Blood Pressure 1: 128/75 Code: 8480-6 Blood Pressure 1: 142/78 Code: 8480-6 BMI: 32.4 Code: 71547-3 Heart Rate 1: 57 bpm Height: 5'11" SpO2: 95% Weight: 232 lbs 06/04/2014 Blood Pressure 1: 138/78 Code: 8480-6 BMI: 32.5 Code: 79299-2 Heart Rate 1: 56 bpm Height: 5'11" SpO2: 96% Weight: 233 lbs 12/10/2013 Blood Pressure 1: 122/78 Code: 8480-6 BMI: 32.2 Code: 88372-9 Heart Rate 1: 76 bpm Height: 5'11" Weight: 231 lbs Functional Status No Functional Status data History of Present Illness Symptom Name Status Resu lt Effective Date Notes Location on both hands 03/13/2018 None Quality constant 03/13/2018 None Onset and Resolution o ngoing 03/13/2018 None Onset of Symptom _ yea rs ago 03/13/2018 None Pertinent Findings Den ies dizziness 03/13/2018 None Pertinent Findings Den ies lightheadedness 03/13/2018 None skin lesion Quality [place] electronic wendy 01/16/2018 None skin lesion Quality rais [...] Encounters Encounter Performer Loca tion Codes Date ([id number]) [id number] EST. P ATIENT, LEVEL IV Diagnosis: Essential tremor[ICD10: G25.0] Diagnosis: Essential (primary) hypertension[ICD10: I10] Renita Roberson MD, C CPT-4: 51733 03/13/2018 ([id number]) 37743 EST. P ATIENT, LEVEL IV Diagnosis: Type 2 diabetes mellitus without complications[ICD10: E11.9] Diagnosis: Essential (primary) hypertension[ICD10: I10] Diagnosis: Actinic keratosis[ICD10: L57.0] Diagnosis: Lumbago with sciatica, right side[ICD10: M54.41] Renita Roberson MD, C CPT-4: 15573 01/16/2018 ([id number]) 97989 EST. P ATIENT, LEVEL IV Diagnosis: Essential (primary) hypertension[ICD10: I10] Diagnosis: Type 2 diabetes mellitus without complications[ICD10: E11.9] Diagnosis: Actinic keratosis[ICD10: L57.0] Diagnosis: Mixed hyperlipidemia[ICD10: E78.2] Irlanda Roberson MD, [facility] CPT-4: 37341 07/18/2017 ([id number]) 12671 EST. P ATIENT, LEVEL IV Diagnosis: Essential (primary) hypertension[ICD10: I10] Diagnosis: Type 2 diabetes mellitus without complications[ICD10: E11.9] Diagnosis: Hypothyroidism, unspecified[ICD10: E03.9] Diagnosis: Actinic keratosis[ICD10: L57.0] Irlanda Roberson MD, [facility] CPT- 4: 83437 01/17/2017 ([id number]) 98613 EST. P ATIENT, LEVEL III Diagnosis: Essential (primary) hypertension[ICD10: I10] Diagnosis: Mixed hyperlipidemia[ICD10: E78.2] Diagnosis: Type 2 diabetes mellitus without complications[ICD10: E11.9] Diagnosis: Actinic keratosis[ICD10: L57.0] Irlanda Roberson MD, [facility] CPT- 4: 15306 07/19/2016 ([id number]) 13515 EST. P ATIENT, LEVEL IV Diagnosis: Essential (primary) hypertension[ICD10: I10] Diagnosis: Type 2 diabetes mellitus without complications[ICD10: E11.9] Diagnosis: Mixed hyperlipidemia[ICD10: E78.2] Renita Roberson MD, [facility] CPT- 4: 17744 01/19/2016 [id number] EST. PATIENT, LEVEL IV Diagnosis: Essential (primary) hypertension[ICD10: I10] Diagnosis: Type 2 diabetes mellitus without complications[ICD10: E11.9] Marielle Roberson MD, [facility] CPT-4: 37614 07/22/2015 ([id number]) [id number] EST. P ATIENT, LEVEL III Diagnosis: Essential (primary) hypertension[ICD10: I10] Diagnosis: Actinic keratosis[ICD10: L57.0] Diagnosis: Personal history of diseases of the skin and subcutaneous tissue[ICD10: Z87.2] Renita Roberson MD, [facility] CPT-4: 16391 01/13/2015 ([id number]) 97042 EST. P ATIENT, LEVEL IV Diagnosis: Essential (primary) hypertension[ICD10: I10] Diagnosis: Other abnormal glucose[ICD10: R73.09] Renita Roberson MD, [facility] CPT-4: 97973 12/03/2014 ([id number]) 26814 EST. P ATIENT, LEVEL IV Diagnosis: ESSENTIAL HYPERTENSION[ICD9: 401.9] Diagnosis: Benign paroxysmal positional vertigo[ICD9: 386.11] Renita Roberson MD, C CPT-4: 29373 06/04/2014 ([id number]) OFFICE VISI T, NEW - LEVEL 4 Diagnosis: ESSENTIAL HYPERTENSION[ICD9: 401.9] Diagnosis: Wrist pain, chronic[ICD9: 719.43] Diagnosis: Benign paroxysmal positional vertigo[ICD9: 386.11] Renita Roberson MD, C CPT-4: 53169 12/10/2013 Plan of Care Planned Activity Notes C odes Status Date Visit Plan: Essential Tremor - star t [...] in blood pressure readings at home. 03/13/2018 Patient Education: Patient Medication Summary Completed [...] thorough healing. 01/16/2018 Appointment: Renita Roberson WPtel: [facility] (15 min) Moderate 01/16/2018 Patient Education: [...] the office 07/18/2017 Appointment: [phone] (30 min) Complex 07/18/2017 Patient Education: [...] the office 01/17/2017 Appointment: [phone] [phone] (30 min) Complex 01/17/2017 Patient Education: [...] nose 07/19/2016 Appointment: Irlanda Huerta WPtel: [phone] [phone] (30 min) Complex 07/19/2016 Patient Education: Patient Medication Summary Completed 07/19/2016 Patient Education: Obesity Completed 07/19/2016 Patient Education: Patient Medication Summary Completed 07/14/2016 Appointment: Marielle Brush WPtel: [phone] [phone] [facility] - Annual Wellness Visit 01/28/2016 Appointment: Irlanda Huerta WPtel: [phone] [phone] [facility] - Annual Wellness Visit 01/26/2016 Visit [...] dications. 01/19/2016 Appointment: Renita Roberson WPtel[facility] [phone] [facility] (15 min) Moderate 01/19/2016 Patient Education: [...] and posterior right scalp 01/13/2015 Appointment: Renita Rboerson [facility]Ptel[facility] [phone] [facility] (15 min) Moderate 01/13/2015 Patient [...] with metformin 12/03/2014 Appointment: Renita Roberson WPtel: [address] [place], [place] [phone] Follow up 12/03/2014 Patient Education: Patient Medication [...] instructions/medication interventions. 06/04/2014 Appointment: Renita Roberson WPtel: [address] [place], [place] [phone] Follow up 06/04/2014 Patient Education: Patient Medication Summary Completed 06/04/2014 Patient Education: Hypertension Completed 06/04/2014 Care Plan: Referral Order SNOMED-CT : [id number] Ordered 06/04/2014 Visit Plan: Hypertension - well [...] Dr. Starr. 12/10/2013 Appointment: Renita Roberson WPtel: [facility] bringing in new pt paperwork New Patient 12/10/2013 Patient Education: Patient Medication Summary Completed 12/10/2013 Patient Education: Hypertension Completed 12/10/2013 Referral: Don Rodriguez WPtel: [facility] [facility] Referral Appointment Requested Instructions Comment . Diabetes Mellitus - controlled - per [...]
--- OUTSIDE RECORDS SUMMARY | 2019-06-22 15:25 | XMS REPORT | CCD ---
Author Author Ravinder Roberson Organization Renita Roberson MD, [facility] Address [address] [place] [address] Phone Care Team Providers Care Assembler Tester Name Role Phone PP Unavailable CCM Unavailable Summary Purpose Interface Exchange Insurance Providers Payer name Policy type / Coverage type Covered democrat ID Effective Begin Date Effective End Date WPS Medicare Part B Medicare Part B [id number] Unknown [facility] icare Part B [id number] Un known Family history Father Diagnosis Age At Onset Hypertension Unknown Brother Diagnosis Age At Onset Coronary Artery Disease Unknown Cancer Unknown Hypertension Unknown Mother Diagnosis Age At Onset Hypertension Unknown Social History Social History Element Codes Description Effective Dates Marital status Unknown M arried 12/10/2013 Number of children Unknown 2 12/10/2013 Employment Unknown Retir ed 12/10/[address]: 6646556 Former smoker quit 1980 12/10/[address]: 472011073 Never drinks alcohol 12/10/2013 Allergies, Adverse Reactions, [...] Codes Condition Status Onset Date Resolved Date Sciatica Unknown Active 01/16/2018 Unknow n Actinic keratosis ICD-9: 702.0 ICD-10: L57.0 Active 01/12/2015 Unknown Essential (primary) hypertension ICD-9: 401.9 ICD-10: I10 Active 12/10/2013 Unknown Lumbago with sciatic a, right side [...] Condition Codes Effectiv e Dates Condition Status Sciatica Unknown 01/16/2018 Active Actinic keratosis ICD-9: 702.0 ICD-10: L57.0 01/12/2015 Active Essential (primary) hypertension ICD-9: 401.9 ICD-10: I10 12/10/2013 Active Lumbago with sciatic a, right side [...] Date Stop Date Sta tus Fill Instructions triamcinolone aceton andrews 0.1 % topical cream RxNorm: 9103002 1 Application TOP BI D as needed 01/16/2018 05/15/2018 Active he would like 3 15 gram tube s amlodipine 10 mg tablet RxNorm: 031076 1 Tablet(s) PO daily by Dr. Jade 01/16/2018 No Stop Date Active triamcinolone aceton andrews 0.1 % topical cream RxNorm: 1127308 1 Application TOP BI D as needed 01/16/2018 01/15/2018 Inactive he would like 3 15 gram tub es metformin ER 500 mg tablet,extended release 24hr RxNorm: 1099844 TAKE ONE TABLET BY MOUTH TWICE DAILY 12/04/2017 No Stop Date Active metformin ER 500 mg tablet,extended release 24hr RxNorm: 1992179 TAKE ONE TABLET BY MOUTH TWICE DAILY 03/22/2017 12/03/2017 Inactive Tylenol PM Extra Str ength 25 mg-500 mg tablet RxNorm: 3903240 1 Tablet(s) PO QHS 01/17/2017 No Stop Date Active triamcinolone aceton andrews 0.1 % topical cream RxNorm: 0333764 1 Application TOP BI D as needed 01/17/2017 05/16/2017 Inactive metformin ER 500 mg tablet,extended release 24hr RxNorm: 801915 TAKE ONE TABLET BY MOUTH TWICE DAILY 09/27/2016 03/21/2017 Inactive triamcinolone aceton andrews 0.1 % topical cream RxNorm: 9830890 1 Application TOP BI D as needed 07/19/2016 09/16/2016 Inactive metformin ER 500 mg tablet,extended release 24hr RxNorm: 971808 1 Tablet(s) PO BID 08/19/2015 09/26/2016 In active metformin ER 500 mg tablet,extended release 24hr RxNorm: 128343 1 Tablet(s) PO BID 08/14/2015 08/18/2015 In active metformin ER 500 mg tablet,extended release 24hr RxNorm: 604773 1 Tablet(s) PO BID 04/09/2015 08/13/2015 In active triamcinolone aceton andrews 0.1 % topical cream RxNorm: 1363249 1 Application TOP BI D as needed 01/13/2015 07/18/2016 Inactive Flonase Allergy Reli ef 50 mcg/actuation nasal spray,suspension RxNorm: 1 Kimberly NASAL BID 12/03/2014 01/12/2015 Inactive triamcinolone aceton andrews 0.1 % topical cream RxNorm: 9591487 1 Application TOP BI D as needed 06/04/2014 01/12/2015 Inactive metformin ER 500 mg tablet,extended release 24hr RxNorm: 904646 1 Tablet(s) PO BID 03/05/2014 04/08/2015 In active multivitamin oral RxNorm: 74867 oral No Start Date Active Vitamin B-12 oral RxNorm: 87061 oral No Start Date Active Baby Aspirin 81 mg c hewable tablet RxNorm: 027824 1 Tablet(s) PO daily No Start Date Active Inderal LA 160 mg ca psule,extended release RxNorm: 329549 1 Capsule(s) PO daily No Start Date Active simvastatin 10 mg ta blet RxNorm: 366147 1 Tablet(s) PO daily No Start Date Active amlodipine 5 mg tablet RxNorm: 790354 1 Tablet(s) PO daily No Start Date 01/15/2018 Inactive multivitamin tablet RxNorm: 1 Tablet(s) PO daily No Start Date 01/16/2017 Inactive tramadol 50 mg tablet RxNorm: 443099 1 Tablet(s) PO TID No Start Date 07/21/2015 Inactive Tylenol PM Extra Str ength 25 mg-500 mg tablet RxNorm: 9647312 2 Tablet(s) PO QHS No Start Date 01/16/2017 Inactive metformin ER 500 mg tablet,extended release 24hr RxNorm: 516178 1 Tablet(s) PO BID No Start Date 03/04/2014 Inactive Methotrexate (Anti-R heumatic) 2.5 mg tablet RxNorm: 955838 8 Tablet(s) PO one ti me per week No Start Date 07/21/2015 Inactive Protonix 40 mg table t,delayed release RxNorm: 776489 1 Tablet(s) PO daily No Start Date 12/02/2014 Inactive Vitamin B-12 1,000 m cg tablet RxNorm: 669277 1 Tablet(s) PO daily No Start Date 01/16/2017 Inactive propranolol ER 120 m g capsule,24 hr,extended release RxNorm: 140088 1 Capsule(s) PO daily No Start Date 07/17/2017 Inactive Medication Administered No Medication Administered data Immunizations Vaccine Codes Date Status Influenza CVX: 141 11/27 completed Assessments Condition Codes Effectiv e Dates Lumbago with sciatica, right side IC D-10: M54.41 ICD-9: 724.3 01/16/2018 Actinic keratosis ICD-10: L57.0 ICD-9: 702.0 01/16/2018 Type 2 diabetes mellitus without complications ICD-10: E11.9 ICD-9: 250.00 01/16/2018 Essential (primary) hypertension ICD -10: I10 ICD-9: 401.9 01/16/2018 Mixed hyperlipidemia ICD-10: E78.2 ICD-9: 272.2 [...] Visit Reason For Visit Effective Dates Notes skin lesion 01/16/2018 hypertension 07/18/2017 hypertension 01/17/2017 [...] 54.8 % 01/11/2018 Cbc With Differential Ord2 Lymph% 32.0 % 01/11/2018 Cbc With Differential Ord2 MCV 93.3 fl 01/11/2018 Cbc With Differential Ord2 [place]% 8.8 % 01/11/2018 Cbc With Differential Ord2 MCH 31.0 pg 01/11/2018 Cbc With Differential Ord2 Eos% 3.8 % 01/11/2018 Cbc With Differential Ord2 MCHC 33.3 pg 01/11/2018 Cbc With Differential Ord2 PLT 228 K/ul 01/11/2018 Cbc With Differential Ord2 Baso% 0.6 % 01/11/2018 Cbc With Differential Ord2 RDW 13.4 % 01/11/2018 Cbc With Differential Ord2 Neut ABS# 4.96 K/ul 01/11/2018 Cbc With Differential Ord2 Lymph ABS# 2.90 K/ul 01/11/2018 Cbc With Differential Ord2 [place] ABS# 0.8 K/ul 01/11/2018 Cbc With Differential Ord2 Eos ABS# 0.3 K/ul 01/11/2018 Cbc With Differential Ord2 Baso ABS# 0.1 K/ul 01/11/2018 %Hba1C Ftk000 % HbA1c 44906-3 6.0 % 01/11/2018 %Hba1C Txt107 Gluc Ave 126 mg/dL 01/11/2018 Tsh Ord6 TSH (3rd IS) 5.07 uIU/mL 01/11/2018 Lipid Ord30 CHOL 131 mg/dL 01/11/2018 Lipid Ord30 HDL 36.0 mg/dl 01/11/2018 Lipid Ord30 TRIG 59 mg/dL 01/11/2018 Lipid Ord30 LDL 83 mg/dL 01/11/2018 Lipid Ord30 C/HDL 3.6 Ratio 01/11/2018 Free T4 Xpw045 FREE T4 1.00 ng/dL 01/11/2018 Comp Metabolic Dvj240 NA 141 mEq/L 01/11/2018 Comp Metabolic Jom657 K 4.1 mEq/L 01/11/2018 Comp Metabolic Ihu662 CL 104 mEq/L 01/11/2018 Comp Metabolic Hdr642 CO2 30.0 mEq/L 01/11/2018 Comp Metabolic Ulz057 AN ION GAP 11 01/11/2018 Comp Metabolic Nqj055 GL UCOSE 131 mg/dL 01/11/2018 Comp Metabolic Mce560 Cr eat 0.9 mg/dL 01/11/2018 Comp Metabolic Wxy009 eG FR 86 ml/min/1.73m2 01/11 Comp Metabolic Sdc280 BUN 10 mg/dL 01/11/2018 Comp Metabolic Glg297 B/ C Ratio 11.2 Ratio 01/11/2018 Comp Metabolic Qoe372 CA LCIUM 9.1 mg/dL 01/11/2018 Comp Metabolic Gkl592 AL K PHOS 49 U/L 01/11/2018 Comp Metabolic Ava394 T(SGOT) 14 U/L 01/11/2018 Comp Metabolic Zhx668 AL T(SGPT) 13 U/L 01/11/2018 Comp Metabolic Vwd289 BI LI T 0.6 mg/dL 01/11/2018 Comp Metabolic Gmj182 AL BUMIN 4.0 g/dL 01/11/2018 Comp Metabolic Oiz849 TP RO 6.4 g/dL 01/11/2018 Comp Metabolic Qua899 GL OB 2.4 g/dL 01/11/2018 Comp Metabolic Arh828 A/ G Ratio 1.6 Ratio 01/11/2018 Comp Metabolic Qlf308 Os mo 282 mOsmo 01/11/2018 %Hba1C Ytd877 % HbA1c 57114-4 6.2 % 07/14/2017 %Hba1C Mnh241 Gluc Ave 131 mg/dL 07/14/2017 Cbc With Differential Ord2 WBC 9.23 K/ul 07/14/2017 Cbc With Differential Ord2 RBC 4.85 M/ul 07/14/2017 Cbc With Differential Ord2 HGB 15.1 g/dl 07/14/2017 Cbc With Differential Ord2 HCT 44.7 % 07/14/2017 Cbc With Differential Ord2 Neut% 57.3 % 07/14/2017 Cbc With Differential Ord2 Lymph% 29.9 % 07/14/2017 Cbc With Differential Ord2 MCV 92.2 fl 07/14/2017 Cbc With Differential Ord2 MCH 31.1 pg 07/14/2017 Cbc With Differential Ord2 [place]% 8.5 % 07/14/2017 Cbc With Differential Ord2 Eos% 3.9 % 07/14/2017 Cbc With Differential Ord2 MCHC 33.8 pg 07/14/2017 Cbc With Differential Ord2 Baso% 0.4 % 07/14/2017 Cbc With Differential Ord2 PLT 241 K/ul 07/14/2017 Cbc With Differential Ord2 RDW 13.9 % 07/14/2017 Cbc With Differential Ord2 Neut ABS# 5.29 K/ul 07/14/2017 Cbc With Differential Ord2 Lymph ABS# 2.76 K/ul 07/14/2017 Cbc With Differential Ord2 [place] ABS# 0.8 K/ul 07/14/2017 Cbc With Differential Ord2 Eos ABS# 0.4 K/ul 07/14/2017 Cbc With Differential Ord2 Baso ABS# 0.0 K/ul 07/14/2017 Free T4 Ydu677 FREE T4 0.97 ng/dL 07/14/2017 Tsh Ord6 TSH (3rd IS) 4.46 uIU/mL 07/14/2017 Comp Metabolic Yzb589 NA 140 mEq/L 07/14/2017 Comp Metabolic Ufy755 K 4.2 mEq/L 07/14/2017 Comp Metabolic Qey612 CL 103 mEq/L 07/14/2017 Comp Metabolic Eti056 CO2 29.0 mEq/L 07/14/2017 Comp Metabolic Cdr498 AN ION GAP 12 07/14/2017 Comp Metabolic Jzl331 GL UCOSE 127 mg/dL 07/14/2017 Comp Metabolic Fhj485 Cr eat 0.9 mg/dL 07/14/2017 Comp Metabolic Kku812 eG FR 90 ml/min/1.73m2 07/14 Comp Metabolic Iau315 BUN 8 mg/dL 07/14/2017 Comp Metabolic Dxi816 B/ C Ratio 9.3 Ratio 07/14/2017 Comp Metabolic Bsi266 CA LCIUM 9.5 mg/dL 07/14/2017 Comp Metabolic Uhq635 AL K PHOS 77 U/L 07/14/2017 Comp Metabolic Scj881 T(SGOT) 18 U/L 07/14/2017 Comp Metabolic Ofk842 AL T(SGPT) 20 U/L 07/14/2017 Comp Metabolic Xtz690 BI LI T 0.7 mg/dL 07/14/2017 Comp Metabolic Fdb256 AL BUMIN 4.4 g/dL 07/14/2017 Comp Metabolic Obq685 TP RO 6.9 g/dL 07/14/2017 Comp Metabolic Sbd207 GL OB 2.6 g/dL 07/14/2017 Comp Metabolic Wtr969 A/ G Ratio 1.7 Ratio 07/14/2017 Comp Metabolic Kpm116 Os mo 279 mOsmo 07/14/2017 Free T4 Ist812 FREE T4 0.97 ng/dL 04/21/2017 Tsh Ord6 TSH (3rd IS) 4.44 uIU/mL 04/21/2017 %Hba1C Elo520 % HbA1c 11449-7 6.3 % 01/06/2017 %Hba1C Pxq033 Gluc Ave 134 mg/dL 01/06/2017 Cbc With Differential Ord2 WBC 10.09 K/ul 01/06/2017 Cbc With Differential Ord2 RBC 4.64 M/ul 01/06/2017 Cbc With Differential Ord2 HGB 14.5 g/dl 01/06/2017 Cbc With Differential Ord2 Neut% 51.8 % 01/06/2017 Cbc With Differential Ord2 HCT 43.2 % 01/06/2017 Cbc With Differential Ord2 MCV 93.1 fl 01/06/2017 Cbc With Differential Ord2 Lymph% 35.7 % 01/06/2017 Cbc With Differential Ord2 MCH 31.3 pg 01/06/2017 Cbc With Differential Ord2 [place]% 9.2 % 01/06/2017 Cbc With Differential Ord2 [...] 3.60 K/ul 01/06/2017 Cbc With Differential Ord2 [place] ABS# 0.9 K/ul 01/06/2017 Cbc With Differential Ord2 Eos ABS# 0.3 K/ul 01/06/2017 Cbc With Differential Ord2 Baso ABS# 0.0 K/ul 01/06/2017 Lipid Ord30 CHOL 134 mg/dL 01/06/2017 Lipid Ord30 HDL 35.0 mg/dl 01/06/2017 Lipid Ord30 TRIG 111 mg/dL 01/06/2017 Lipid Ord30 LDL 77 mg/dL 01/06/2017 Lipid Ord30 C/HDL 3.8 Ratio 01/06/2017 Comp Metabolic Ivj663 NA 139 mEq/L 01/06/2017 Comp Metabolic Lsq188 K 4.2 mEq/L 01/06/2017 Comp Metabolic Fia312 CL 103 mEq/L 01/06/2017 Comp Metabolic Tpr429 CO2 29.0 mEq/L 01/06/2017 Comp Metabolic Szp178 AN ION GAP 11 01/06/2017 Comp Metabolic Hal216 GL UCOSE 121 mg/dL 01/06/2017 Comp Metabolic Akz416 Cr eat 0.8 mg/dL 01/06/2017 Comp Metabolic Eky430 eG FR 101 ml/min/1.73m2 12/28 Comp Metabolic Nzc099 BUN 9 mg/dL 01/06/2017 Comp Metabolic Obd467 B/ C Ratio 11.5 Ratio 01/06/2017 Comp Metabolic Irq651 CA LCIUM 9.3 mg/dL 01/06/2017 Comp Metabolic Now539 AL K PHOS 48 U/L 01/06/2017 Comp Metabolic Zfx007 T(SGOT) 15 U/L 01/06/2017 Comp Metabolic Gbb251 AL T(SGPT) 17 U/L 01/06/2017 Comp Metabolic Yoo400 BI LI T 0.6 mg/dL 01/06/2017 Comp Metabolic Mzh209 AL BUMIN 4.0 g/dL 01/06/2017 Comp Metabolic Voe853 TP RO 6.4 g/dL 01/06/2017 Comp Metabolic Iko198 GL OB 2.4 g/dL 01/06/2017 Comp Metabolic Xbd859 A/ G Ratio 1.7 Ratio 01/06/2017 Comp Metabolic Odg957 Os mo 277 mOsmo 01/06/2017 Tsh Ord6 [...] 30.9 pg 07/14/2016 Cbc With Differential Ord2 [place]% 8.4 % 07/14/2016 Cbc With Differential Ord2 MCHC 33.6 pg 07/14/2016 Cbc With Differential Ord2 Eos% 5.3 % 07/14/2016 Cbc With Differential Ord2 PLT 210 K/ul 07/14/2016 Cbc With Differential Ord2 Baso% 0.6 % 07/14/2016 Cbc With Differential Ord2 Neut ABS# 4.56 K/ul 07/14/2016 Cbc With Differential Ord2 RDW 13.8 % 07/14/2016 Cbc With Differential Ord2 Lymph ABS# 2.34 K/ul 07/14/2016 Cbc With Differential Ord2 [place] ABS# 0.7 K/ul 07/14/2016 Cbc With Differential Ord2 Eos ABS# 0.4 K/ul 07/14/2016 Cbc With Differential Ord2 Baso ABS# 0.1 K/ul 07/14/2016 Comp Metabolic Aeq449 NA 139 mEq/L 07/14/2016 Comp Metabolic Abg193 K 4.4 mEq/L 07/14/2016 Comp Metabolic Ihr328 CL 103 mEq/L 07/14/2016 Comp Metabolic Qua193 CO2 31.0 mEq/L 07/14/2016 Comp Metabolic Wru984 AN ION GAP 9 07/14/2016 Comp Metabolic Ygy897 GL UCOSE 109 mg/dL 07/14/2016 Comp Metabolic Ece449 Cr eat 0.9 mg/dL 07/14/2016 Comp Metabolic Qld376 eG FR 88 ml/min/1.73m2 07/14 Comp Metabolic Uqv773 BUN 12 mg/dL 07/14/2016 Comp Metabolic Cwu631 B/ C Ratio 13.6 Ratio 07/14/2016 Comp Metabolic Nwh462 CA LCIUM 8.9 mg/dL 07/14/2016 Comp Metabolic Icg109 AL K PHOS 42 U/L 07/14/2016 Comp Metabolic Zyi855 T(SGOT) 14 U/L 07/14/2016 Comp Metabolic Pre995 AL T(SGPT) 13 U/L 07/14/2016 Comp Metabolic Avj964 BI LI T 0.6 mg/dL 07/14/2016 Comp Metabolic Wkf176 AL BUMIN 3.8 g/dL 07/14/2016 Comp Metabolic Ihb594 TP RO 6.2 g/dL 07/14/2016 Comp Metabolic Jbu930 GL OB 2.4 g/dL 07/14/2016 Comp Metabolic Fmf904 A/ G Ratio 1.6 Ratio 07/14/2016 Comp Metabolic Rkk612 Os mo 278 mOsmo 07/14/2016 %Hba1C Csr739 % HbA1c 96471-1 5.8 % 07/14/2016 %Hba1C Hir868 Gluc Ave 120 mg/dL 07/14/2016 Cbc With [...] 31.3 pg 01/15/2016 Cbc With Differential Ord2 [place]% 8.4 % 01/15/2016 Cbc With Differential Ord2 MCHC 34.2 pg 01/15/2016 Cbc With Differential Ord2 Eos% 6.0 % 01/15/2016 Cbc With Differential Ord2 PLT 211 K/ul 01/15/2016 Cbc With Differential Ord2 Baso% 0.6 % 01/15/2016 Cbc With Differential Ord2 Neut ABS# 5.15 K/ul 01/15/2016 Cbc With Differential Ord2 RDW 13.5 % 01/15/2016 Cbc With Differential Ord2 Lymph ABS# 2.53 K/ul 01/15/2016 Cbc With Differential Ord2 [place] ABS# 0.8 K/ul 01/15/2016 Cbc With Differential Ord2 Eos ABS# 0.5 K/ul 01/15/2016 Cbc With Differential Ord2 Baso ABS# 0.1 K/ul 01/15/2016 Lipid Ord30 CHOL 119 mg/dL 01/15/2016 Lipid Ord30 HDL 32.0 mg/dl 01/15/2016 Lipid Ord30 TRIG 120 mg/dL 01/15/2016 Lipid Ord30 LDL 63 mg/dL 01/15/2016 Lipid Ord30 C/HDL 3.7 Ratio 01/15/2016 %Hba1C Iuu098 % HbA1c 66098-2 5.9 % 01/15/2016 %Hba1C Zhd014 Gluc Ave 123 mg/dL 01/15/2016 Tsh Ord6 hTSH II 2.98 uIU/mL 01/15/2016 Comp Metabolic Clm904 NA 137 mEq/L 01/15/2016 Comp Metabolic Wca373 K 3.9 mEq/L 01/15/2016 Comp Metabolic Ulx034 CL 104 mEq/L 01/15/2016 Comp Metabolic Lnj316 CO2 26.0 mEq/L 01/15/2016 Comp Metabolic Prd188 AN ION GAP 11 01/15/2016 Comp Metabolic Fxd653 GL UCOSE 113 mg/dL 01/15/2016 Comp Metabolic Njl592 Cr eat 0.8 mg/dL 01/15/2016 Comp Metabolic Uea727 eG FR 101 ml/min/1.73m2 12/28 Comp Metabolic Kjm764 BUN 10 mg/dL 01/15/2016 Comp Metabolic Qwp450 B/ C Ratio 12.8 Ratio 01/15/2016 Comp Metabolic Uqb106 CA LCIUM 9.1 mg/dL 01/15/2016 Comp Metabolic Ail442 AL K PHOS 51 U/L 01/15/2016 Comp Metabolic Xop058 T(SGOT) 16 U/L 01/15/2016 Comp Metabolic Oix397 AL T(SGPT) 17 U/L 01/15/2016 Comp Metabolic Rat350 BI LI T 0.7 mg/dL 01/15/2016 Comp Metabolic Mok358 AL BUMIN 3.9 g/dL 01/15/2016 Comp Metabolic Axl266 TP RO 6.4 g/dL 01/15/2016 Comp Metabolic Nve376 GL OB 2.5 g/dL 01/15/2016 Comp Metabolic Lon536 A/ G Ratio 1.5 Ratio 01/15/2016 Comp Metabolic Zfb779 Os mo 274 mOsmo 01/15/2016 Cbc With [...] 32.7 % 07/10/2015 Cbc With Differential Ord2 [place]% 8.5 % 07/10/2015 Cbc With Differential Ord2 MCH 31.2 pg 07/10/2015 Cbc With Differential Ord2 MCHC 33.7 pg 07/10/2015 Cbc With Differential Ord2 Eos% 3.7 % 07/10/2015 Cbc With Differential Ord2 PLT 233 K/ul 07/10/2015 Cbc With Differential Ord2 Baso% 0.5 % 07/10/2015 Cbc With Differential Ord2 Neut ABS# 4.78 K/ul 07/10/2015 Cbc With Differential Ord2 RDW 13.8 % 07/10/2015 Cbc With Differential Ord2 Lymph ABS# 2.86 K/ul 07/10/2015 Cbc With Differential Ord2 [place] ABS# 0.7 K/ul 07/10/2015 Cbc With Differential Ord2 Eos ABS# 0.3 K/ul 07/10/2015 Cbc With Differential Ord2 Baso ABS# 0.0 K/ul 07/10/2015 Cbc With Differential Ord2 New Analyzer Notice Please note new ref ranges s tarting 03-11-2015 due to implemntation of new five part differential hematolgy analyzer. 07/10/2015 Tsh Ord6 hTSH II 3.50 uIU/mL 07/10/2015 Comp Metabolic Aui588 NA 138 mEq/L 07/10/2015 Comp Metabolic Jzd637 K 4.5 mEq/L 07/10/2015 Comp Metabolic Kbl720 CL 102 mEq/L 07/10/2015 Comp Metabolic Zvs817 CO2 29.0 mEq/L 07/10/2015 Comp Metabolic Nrx149 AN ION GAP 12 07/10/2015 Comp Metabolic Ljs127 GL UCOSE 105 mg/dL 07/10/2015 Comp Metabolic Hav639 Cr eat 0.9 mg/dL 07/10/2015 Comp Metabolic Adl522 eG FR 85 ml/min/1.73m2 07/09 Comp Metabolic Top991 BUN 12 mg/dL 07/10/2015 Comp Metabolic Xgc059 B/ C Ratio 13.2 Ratio 07/10/2015 Comp Metabolic Ifw416 CA LCIUM 9.1 mg/dL 07/10/2015 Comp Metabolic Ych290 AL K PHOS 43 U/L 07/10/2015 Comp Metabolic Xtl265 T(SGOT) 21 U/L 07/10/2015 Comp Metabolic Lks679 AL T(SGPT) 21 U/L 07/10/2015 Comp Metabolic Amt496 BI LI T 0.5 mg/dL 07/10/2015 Comp Metabolic Hjy852 AL BUMIN 4.0 g/dL 07/10/2015 Comp Metabolic Glw287 TP RO 6.4 g/dL 07/10/2015 Comp Metabolic Ujy884 GL OB 2.4 g/dL 07/10/2015 Comp Metabolic Rjo514 A/ G Ratio 1.6 Ratio 07/10/2015 Comp Metabolic Quu817 Os mo 276 mOsmo 07/10/2015 Lipid Ord30 CHOL 121 mg/dL 07/10/2015 Lipid Ord30 HDL 33.0 mg/dl 07/10/2015 Lipid Ord30 TRIG 99 mg/dL 07/10/2015 Lipid Ord30 LDL 68 mg/dL 07/10/2015 Lipid Ord30 C/HDL 3.7 Ratio 07/10/2015 %Hba1C Cny160 % HbA1c 37288-7 6.0 % 07/10/2015 %Hba1C Enk277 Gluc Ave 126 mg/dL 07/10/2015 Comp Metabolic Mkd108 NA 136 mEq/L 12/04/2014 Comp Metabolic Mit973 K 4.1 mEq/L 12/04/2014 Comp Metabolic Hik092 CL 103 mEq/L 12/04/2014 Comp Metabolic Inh113 CO2 28.0 mEq/L 12/04/2014 Comp Metabolic Msq884 AN ION GAP 9 12/04/2014 Comp Metabolic Qzb724 GL UCOSE 118 mg/dL 12/04/2014 Comp Metabolic Hkx315 Cr eat 0.9 mg/dL 12/04/2014 Comp Metabolic Rez557 eG FR 88 ml/min/1.73m2 12/04 Comp Metabolic Efd504 BUN 10 mg/dL 12/04/2014 Comp Metabolic Edd580 B/ C Ratio 11.4 Ratio 12/04/2014 Comp Metabolic Vkm382 CA LCIUM 9.4 mg/dL 12/04/2014 Comp Metabolic Wwe386 AL K PHOS 50 U/L 12/04/2014 Comp Metabolic Vue969 T(SGOT) 17 U/L 12/04/2014 Comp Metabolic Vel163 AL T(SGPT) 17 U/L 12/04/2014 Comp Metabolic Jpy172 BI LI T 0.7 mg/dL 12/04/2014 Comp Metabolic Ach820 AL BUMIN 4.1 g/dL 12/04/2014 Comp Metabolic Eqh403 TP RO 6.4 g/dL 12/04/2014 Comp Metabolic Jjw122 GL OB 2.3 g/dL 12/04/2014 Comp Metabolic Pfe430 A/ G Ratio 1.8 Ratio 12/04/2014 Comp Metabolic Vmj937 Os mo 272 mOsmo 12/04/2014 Tsh Ord6 hTSH II 4.00 uIU/mL 12/04/2014 %Hba1C Qht123 % HbA1c 48624-8 6.2 % 12/04/2014 %Hba1C Eky317 Gluc Ave 131 mg/dL 12/04/2014 Cbc With [...] Result Effective Dates Constitutional No recent illness 01/16/2018 Constitutional No [...] Codes Date DESTRUCT PREMALG LES 2-14 CPT-4: 56009 01/16/2018 DESTRUCT PREMALG LESION CPT-4: 91797 01/16/2018 DESTRUCT PREMALG LESION CPT-4: 28439 07/19/2016 DESTRUCT PREMALG LES 2-14 CPT-4: 14369 07/19/2016 DESTRUCT PREMALG LESION CPT-4: 16565 01/13/2015 DESTRUCT PREMALG LES 2-14 CPT-4: 51114 01/13/2015 Vital Signs Date Vital 01/16/2018 Blood Pressure 1: 138/72 Code: 8480-6 BMI: 32.5 Code: 93616-9 Heart Rate 1: 54 bpm Height: 5'11" SpO2: 95% Weight: 233 lbs 07/18/2017 Blood Pressure 1: 138/68 Code: 8480-6 BMI: 32.2 Code: 77082-0 Heart Rate 1: 59 bpm Height: 5'11" SpO2: 96% Weight: 231 lbs 01/17/2017 Blood Pressure 1: 140/78 Code: 8480-6 BMI: 32.5 Code: 76924-0 Heart Rate 1: 52 bpm Height: 5'11" SpO2: 98% Weight: 233 lbs 07/19/2016 Blood Pressure 1: 140/74 Code: 8480-6 BMI: 32.4 Code: 19763-8 Heart Rate 1: 57 bpm Height: 5'11" SpO2: 95% Weight: 232 lbs 01/19/2016 Blood Pressure 1: 132/60 Code: 8480-6 BMI: 32.9 Code: 27930-0 Heart Rate 1: 58 bpm Height: 5'11" SpO2: 96% Weight: 236 lbs 07/22/2015 Blood Pressure 1: 158/78 Code: 8480-6 Blood Pressure 1: 150/78 Code: 8480-6 BMI: 31.9 Code: 04721-0 Heart Rate 1: 55 bpm Height: 5'11" SpO2: 98% Weight: 229 lbs 01/13/2015 Blood Pressure 1: 146/74 Code: 8480-6 BMI: 32.2 Code: 08362-3 Heart Rate 1: 63 bpm Height: 5'11" SpO2: 97% Weight: 231 lbs 12/03/2014 Blood Pressure 1: 128/75 Code: 8480-6 Blood Pressure 1: 142/78 Code: 8480-6 BMI: 32.4 Code: 02796-6 Heart Rate 1: 57 bpm Height: 5'11" SpO2: 95% Weight: 232 lbs 06/04/2014 Blood Pressure 1: 138/78 Code: 8480-6 BMI: 32.5 Code: 40647-5 Heart Rate 1: 56 bpm Height: 5'11" SpO2: 96% Weight: 233 lbs 12/10/2013 Blood Pressure 1: 122/78 Code: 8480-6 BMI: 32.2 Code: 92514-7 Heart Rate 1: 76 bpm Height: 5'11" Weight: 231 lbs Functional Status No Functional Status data History of Present Illness Symptom Name Status Resu lt Effective Date Notes 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 P ATIENT, LEVEL IV Diagnosis: Type 2 diabetes mellitus without complications[ICD10: E11.9] Diagnosis: Essential (primary) hypertension[ICD10: I10] Diagnosis: Actinic keratosis[ICD10: L57.0] Diagnosis: Lumbago with sciatica, right side[ICD10: M54.41] Renita Roberson MD, [facility] CPT-4: 03106 01/16/2018 [id number]) [id number] EST. P ATIENT, LEVEL IV Diagnosis: Essential (primary) hypertension[ICD10: I10] Diagnosis: Type 2 diabetes mellitus without complications[ICD10: E11.9] Diagnosis: Actinic keratosis[ICD10: L57.0] Diagnosis: Mixed hyperlipidemia[ICD10: E78.2] Irlanda Roberson MD, [facility] CPT-4: 17347 07/18/2017 [id number]) [id number] EST. P ATIENT, LEVEL IV Diagnosis: Essential (primary) hypertension[ICD10: I10] Diagnosis: Type 2 diabetes mellitus without complications[ICD10: E11.9] Diagnosis: Hypothyroidism, unspecified[ICD10: E03.9] Diagnosis: Actinic keratosis[ICD10: L57.0] Irlanda Roberson MD, [facility] CPT- 4: 45036 01/17/2017 [id number]) [id number] EST. P ATIENT, LEVEL III Diagnosis: Essential (primary) hypertension[ICD10: I10] Diagnosis: Mixed hyperlipidemia[ICD10: E78.2] Diagnosis: Type 2 diabetes mellitus without complications[ICD10: E11.9] Diagnosis: Actinic keratosis[ICD10: L57.0] Irlanda Roberson MD, [facility] CPT- 4: 55695 07/19/2016 ([id number]) [id number] EST. P ATIENT, LEVEL IV Diagnosis: Essential (primary) hypertension[ICD10: I10] Diagnosis: Type 2 diabetes mellitus without complications[ICD10: E11.9] Diagnosis: Mixed hyperlipidemia[ICD10: E78.2] Renita Roberson MD, [facility] CPT- 4: 43465 01/19/2016 [id number] EST. PATIENT, LEVEL IV Diagnosis: Essential (primary) hypertension[ICD10: I10] Diagnosis: Type 2 diabetes mellitus without complications[ICD10: E11.9] Marielle Roberson MD, [facility] CPT-4: 26012 07/22/2015 ([id number]) 35933 EST. P ATIENT, LEVEL III Diagnosis: Essential (primary) hypertension[ICD10: I10] Diagnosis: Actinic keratosis[ICD10: L57.0] Diagnosis: Personal history of diseases of the skin and subcutaneous tissue[ICD10: Z87.2] Renita Roberson MD, [facility] CPT-4: 18043 01/13/2015 ([id number]) [id number] EST. P ATIENT, LEVEL IV Diagnosis: Essential (primary) hypertension[ICD10: I10] Diagnosis: Other abnormal glucose[ICD10: R73.09] Renita Roberson MD, [facility] CPT-4: 18525 12/03/2014 ([id number]) 35838 EST. P ATIENT, LEVEL IV Diagnosis: ESSENTIAL HYPERTENSION[ICD9: 401.9] Diagnosis: Benign paroxysmal positional vertigo[ICD9: 386.11] Renita Roberson MD, C CPT-4: 11685 06/04/2014 ([id number]) OFFICE VISI T, [facility] - LEVEL 4 Diagnosis: ESSENTIAL HYPERTENSION[ICD9: 401.9] Diagnosis: Wrist pain, chronic[ICD9: 719.43] Diagnosis: Benign paroxysmal positional vertigo[ICD9: 386.11] Renita Roberson MD, C CPT-4: 23669 12/10/2013 Plan of Care Planned Activity Notes C odes Status Date Visit Plan: Diabetes Mellitus - con trolled [...] if not improved after thorough healing. 01/16/2018 Patient Education: Patient Medication Summary Completed [...] the office 01/17/2017 Appointment: Irlanda Huerta WPtel: [phone] (30 min) Complex 01/17/2017 Patient Education: Patient [...] and nose 07/19/2016 Appointment: Irlanda Huerta [facility]Ptel: [phone] (30 min) Complex 07/19/2016 Patient Education: Patient Medication Summary Completed 07/19/2016 Patient Education: Obesity Completed 07/19/2016 Patient Education: Patient Medication Summary Completed 07/14/2016 Appointment: GonsaloMarielle WPtel: [phone] [facility] - Annual Wellness Visit 01/28/2016 Appointment: Irlnada Huerta WPtel: [phone] [phone] [facility] - Annual Wellness Visit 01/26/2016 [...] me dications. 01/19/2016 Appointment: Renita Roberson [phone] (15 min) Moderate 01/19/2016 Patient Education: Patient [...] scalp 01/13/2015 Appointment: Renita Roberson WPtel: [phone] [facility] (15 min) Moderate 01/13/2015 Patient Education: [...] with metformin 12/03/2014 Appointment: Renita Roberson [facility]Ptel: [phone] Follow up 12/03/2014 Patient Education: Patient Medication [...] instructions/medication interventions. 06/04/2014 Appointment: Renita Roberson WPtel: [facility] [address] Follow up 06/04/2014 Patient Education: Patient Medication Summary Completed 06/04/2014 Patient Education: Hypertension Completed 06/04/2014 Care Plan: Referral Order SNOMED-CT : [id number] Ordered 06/04/2014 Visit Plan: Hypertension - well [...] Dr. Starr. 12/10/2013 Appointment: Renita Roberson WPtel: [address] [place] [address] bringing in new pt paperwork New Patient 12/10/2013 Patient Education: Patient Medication Summary Completed 12/10/2013 Patient Education: Hypertension Completed 12/10/2013 Referral: Don Rodriguez WPtel: [phone] [facility] Referral Appointment Requested Instructions Comment . Diabetes [...] readings are starting to become less controlled. . Diabetes Mellitus - controlled - per [...]
--- OUTSIDE RECORDS SUMMARY | 2019-06-22 15:26 | XMS REPORT | CCD ---
Author Author Ravinder Roberson Organization Renita Roberson MD, [facility] Address [address] [place] [address] Phone Care Team Providers Care Residential Solar Consultant Name Role Phone PP Unavailable CCM Unavailable Summary Purpose Interface Exchange Insurance Providers Payer name Policy type / Coverage type Covered constitution party ID Effective Begin Date Effective End Date WPS Medicare Part B Medicare Part B [id number] Unknown [facility] icare Part B [id number] Un known Family history Father Diagnosis Age At Onset Hypertension Unknown Brother Diagnosis Age At Onset Coronary Artery Disease Unknown Cancer Unknown Hypertension Unknown Mother Diagnosis Age At Onset Hypertension Unknown Social History Social History Element Codes Description Effective Dates Marital status Unknown M arried 12/10/2013 Number of children Unknown 2 12/10/2013 Employment Unknown Retir ed 12/10/[address]: 8379552 Former smoker quit 1980 12/10/[address]: 854550977 Never drinks alcohol 12/10/2013 Allergies, Adverse Reactions, [...] ICD-9: 272.2 ICD-10: E78.2 Active 01/18/2016 Unknown Type 2 diabetes glenn itus without complications ICD-9: 250.00 ICD-10: E11.9 Active 01/18/2016 Unknown Actinic keratosis ICD-9: 702.0 ICD-10: L57.0 Active 01/12/2015 Unknown Hypothryroidism Unknown Active 01/17/2017 Unknow n [...] hyperlipidemia ICD-9: 272.2 ICD-10: E78.2 01/18/2016 Active Type 2 diabetes glenn itus without complications ICD-9: 250.00 ICD-10: E11.9 01/18/2016 Active Actinic keratosis ICD-9: 702.0 ICD-10: L57.0 01/12/2015 Active Hypothryroidism Unknown 01/17/2017 Active Diabetes Unknown [...] aceton andrews 0.1 % topical cream RxNorm: 1921242 1 Application TOP BI D as needed 01/16/2018 05/15/2018 Active he would like 3 15 gram tube s amlodipine 10 mg tablet RxNorm: 327249 1 Tablet(s) PO daily by Dr. Jade 01/16/2018 No Stop Date Active triamcinolone aceton andrews 0.1 % topical cream RxNorm: 1066248 1 Application TOP BI D as needed 01/16/2018 01/15/2018 Inactive he would like 3 15 gram tub es metformin ER 500 mg tablet,extended release 24hr RxNorm: 3617921 TAKE ONE TABLET BY MOUTH TWICE DAILY 12/04/2017 No Stop Date Active metformin ER 500 mg tablet,extended release 24hr RxNorm: 8034497 TAKE ONE TABLET BY MOUTH TWICE DAILY 03/22/2017 12/03/2017 Inactive Tylenol PM Extra Str ength 25 mg-500 mg tablet RxNorm: 2543394 1 Tablet(s) PO QHS 01/17/2017 No Stop Date Active triamcinolone aceton andrews 0.1 % topical cream RxNorm: 7860054 1 Application TOP BI D as needed 01/17/2017 05/16/2017 Inactive metformin ER 500 mg tablet,extended release 24hr RxNorm: 017013 TAKE ONE TABLET BY MOUTH TWICE DAILY 09/27/2016 03/21/2017 Inactive triamcinolone aceton andrews 0.1 % topical cream RxNorm: 4977733 1 Application TOP BI D as needed 07/19/2016 09/16/2016 Inactive metformin ER 500 mg tablet,extended release 24hr RxNorm: 094828 1 Tablet(s) PO BID 08/19/2015 09/26/2016 In active metformin ER 500 mg tablet,extended release 24hr RxNorm: 527397 1 Tablet(s) PO BID 08/14/2015 08/18/2015 In active metformin ER 500 mg tablet,extended release 24hr RxNorm: 560137 1 Tablet(s) PO BID 04/09/2015 08/13/2015 In active triamcinolone aceton andrews 0.1 % topical cream RxNorm: 7129826 1 Application TOP BI D as needed 01/13/2015 07/18/2016 Inactive Flonase Allergy Reli ef 50 mcg/actuation nasal spray,suspension RxNorm: 1 [place] NASAL BID 12/03/2014 01/12/2015 Inactive triamcinolone aceton andrews 0.1 % topical cream RxNorm: 2538340 1 Application TOP BI D as needed 06/04/2014 01/12/2015 Inactive metformin ER 500 mg tablet,extended release 24hr RxNorm: 619003 1 Tablet(s) PO BID 03/05/2014 04/08/2015 In active multivitamin oral RxNorm: 22185 oral No Start Date Active Vitamin B-12 oral RxNorm: 91951 oral No Start Date Active Baby Aspirin 81 mg c hewable tablet RxNorm: 683854 1 Tablet(s) PO daily No Start Date Active Inderal LA 160 mg ca psule,extended release RxNorm: 886244 1 Capsule(s) PO daily No Start Date Active simvastatin 10 mg ta blet RxNorm: 686856 1 Tablet(s) PO daily No Start Date Active amlodipine 5 mg tablet RxNorm: 556287 1 Tablet(s) PO daily No Start Date 01/15/2018 Inactive multivitamin tablet RxNorm: 1 Tablet(s) PO daily No Start Date 01/16/2017 Inactive tramadol 50 mg tablet RxNorm: 081999 1 Tablet(s) PO TID No Start Date 07/21/2015 Inactive Tylenol PM Extra Str ength 25 mg-500 mg tablet RxNorm: 0899268 2 Tablet(s) PO QHS No Start Date 01/16/2017 Inactive metformin ER 500 mg tablet,extended release 24hr RxNorm: 247524 1 Tablet(s) PO BID No Start Date 03/04/2014 Inactive Methotrexate (Anti-R heumatic) 2.5 mg tablet RxNorm: 651993 8 Tablet(s) PO one ti me per week No Start Date 07/21/2015 Inactive Protonix 40 mg table t,delayed release RxNorm: 222155 1 Tablet(s) PO daily No Start Date 12/02/2014 Inactive Vitamin B-12 1,000 m cg tablet RxNorm: 767962 1 Tablet(s) PO daily No Start Date 01/16/2017 Inactive propranolol ER 120 m g capsule,24 hr,extended release RxNorm: 343567 1 Capsule(s) PO daily No Start Date 07/17/2017 Inactive Medication Administered No Medication Administered data Immunizations Vaccine Codes Date Status Influenza CVX: 141 11/27 completed Assessments Condition Codes Effectiv e Dates Mixed hyperlipidemia ICD-10: E78.2 ICD-9: 272.2 01/10/2018 Hypothyroidism, unspecified ICD-10: E03.9 ICD-9: 244.9 01/10/2018 Type 2 diabetes mellitus without complications ICD-10: E11.9 ICD-9: 250.00 01/10/2018 Essential (primary) hypertension ICD -10: I10 ICD-9: 401.9 01/10/2018 Actinic keratosis ICD-10: L57.0 ICD-9: 702.0 07/18/2017 Personal history of diseases of the skin and subcutaneous tissue ICD-10: Z87.2 ICD-9: V13.3 01/13/2015 Other abnormal glucose ICD-10: R73.0 9 ICD-9: 790.29 12/03/2014 Benign paroxysmal positional vertigo ICD-9: 386.11 06/04/2014 ESSENTIAL HYPERTENSION ICD-9: 401.9 06/04/2014 Wrist pain, chronic ICD-9: 719.43 12/10/2013 Reason For Visit Reason For Visit Effective Dates Notes hypertension 07/18/2017 hypertension 01/17/2017 skin lesion 07/19/2016 [...] 93.3 fl 01/11/2018 Cbc With Differential Ord2 Deuel% 8.8 % 01/11/2018 Cbc With Differential Ord2 [...] 2.90 K/ul 01/11/2018 Cbc With Differential Ord2 Deuel ABS# 0.8 K/ul 01/11/2018 Cbc With Differential Ord2 Eos ABS# 0.3 K/ul 01/11/2018 Cbc With Differential Ord2 Baso ABS# 0.1 K/ul 01/11/2018 %Hba1C Tcz535 % HbA1c 09935-7 6.0 % 01/11/2018 %Hba1C Jrb225 Gluc Ave 126 mg/dL 01/11/2018 Tsh Ord6 TSH (3rd IS) 5.07 uIU/mL 01/11/2018 Lipid Ord30 CHOL 131 mg/dL 01/11/2018 Lipid Ord30 HDL 36.0 mg/dl 01/11/2018 Lipid Ord30 TRIG 59 mg/dL 01/11/2018 Lipid Ord30 LDL 83 mg/dL 01/11/2018 Lipid Ord30 C/HDL 3.6 Ratio 01/11/2018 Free T4 Gle067 FREE T4 1.00 ng/dL 01/11/2018 Comp Metabolic Hpr782 NA 141 mEq/L 01/11/2018 Comp Metabolic Ysq624 K 4.1 mEq/L 01/11/2018 Comp Metabolic Tbd483 CL 104 mEq/L 01/11/2018 Comp Metabolic Yfc378 CO2 30.0 mEq/L 01/11/2018 Comp Metabolic Son100 AN ION GAP 11 01/11/2018 Comp Metabolic Fia356 GL UCOSE 131 mg/dL 01/11/2018 Comp Metabolic Duc161 Cr eat 0.9 mg/dL 01/11/2018 Comp Metabolic Gpo019 eG FR 86 ml/min/1.73m2 01/11 Comp Metabolic Byc361 BUN 10 mg/dL 01/11/2018 Comp Metabolic Jbi844 B/ C Ratio 11.2 Ratio 01/11/2018 Comp Metabolic Lgd037 CA LCIUM 9.1 mg/dL 01/11/2018 Comp Metabolic Qxz085 AL K PHOS 49 U/L 01/11/2018 Comp Metabolic Elc241 T(SGOT) 14 U/L 01/11/2018 Comp Metabolic Iyn963 AL T(SGPT) 13 U/L 01/11/2018 Comp Metabolic Xlu334 BI LI T 0.6 mg/dL 01/11/2018 Comp Metabolic Zus020 AL BUMIN 4.0 g/dL 01/11/2018 Comp Metabolic Pcz248 TP RO 6.4 g/dL 01/11/2018 Comp Metabolic Yzy207 GL OB 2.4 g/dL 01/11/2018 Comp Metabolic Ptg783 A/ G Ratio 1.6 Ratio 01/11/2018 Comp Metabolic Yym302 Os mo 282 mOsmo 01/11/2018 %Hba1C Wdy608 % HbA1c 81637-7 6.2 % 07/14/2017 %Hba1C Ghc680 Gluc Ave 131 mg/dL 07/14/2017 Cbc With [...] 31.1 pg 07/14/2017 Cbc With Differential Ord2 Deuel% 8.5 % 07/14/2017 Cbc With Differential Ord2 [...] 2.76 K/ul 07/14/2017 Cbc With Differential Ord2 De[place] ABS# 0.8 K/ul 07/14/2017 Cbc With Differential Ord2 Eos ABS# 0.4 K/ul 07/14/2017 Cbc With Differential Ord2 Baso ABS# 0.0 K/ul 07/14/2017 Free T4 Evb262 FREE T4 0.97 ng/dL 07/14/2017 Tsh Ord6 TSH (3rd IS) 4.46 uIU/mL 07/14/2017 Comp Metabolic Ncl659 NA 140 mEq/L 07/14/2017 Comp Metabolic Hnr887 K 4.2 mEq/L 07/14/2017 Comp Metabolic Cos594 CL 103 mEq/L 07/14/2017 Comp Metabolic Zga039 CO2 29.0 mEq/L 07/14/2017 Comp Metabolic Vtn516 AN ION GAP 12 07/14/2017 Comp Metabolic Vrz991 GL UCOSE 127 mg/dL 07/14/2017 Comp Metabolic Epg014 Cr eat 0.9 mg/dL 07/14/2017 Comp Metabolic Rmt342 eG FR 90 ml/min/1.73m2 07/14 Comp Metabolic Vdk096 BUN 8 mg/dL 07/14/2017 Comp Metabolic Qiu018 B/ C Ratio 9.3 Ratio 07/14/2017 Comp Metabolic Dwj751 CA LCIUM 9.5 mg/dL 07/14/2017 Comp Metabolic Iyp329 AL K PHOS 77 U/L 07/14/2017 Comp Metabolic Nfv686 T(SGOT) 18 U/L 07/14/2017 Comp Metabolic Xif318 AL T(SGPT) 20 U/L 07/14/2017 Comp Metabolic Abu586 BI LI T 0.7 mg/dL 07/14/2017 Comp Metabolic Arf253 AL BUMIN 4.4 g/dL 07/14/2017 Comp Metabolic Wke803 TP RO 6.9 g/dL 07/14/2017 Comp Metabolic Lhk499 GL OB 2.6 g/dL 07/14/2017 Comp Metabolic Jsd664 A/ G Ratio 1.7 Ratio 07/14/2017 Comp Metabolic Oya627 Os mo 279 mOsmo 07/14/2017 Free T4 Ilo612 FREE T4 0.97 ng/dL 04/21/2017 Tsh Ord6 TSH (3rd IS) 4.44 uIU/mL 04/21/2017 %Hba1C Uaj109 % HbA1c 71295-0 6.3 % 01/06/2017 %Hba1C Icf790 Gluc Ave 134 mg/dL 01/06/2017 Cbc With [...] 31.3 pg 01/06/2017 Cbc With Differential Ord2 Deuel% 9.2 % 01/06/2017 Cbc With Differential Ord2 [...] 3.60 K/ul 01/06/2017 Cbc With Differential Ord2 Deuel ABS# 0.9 K/ul 01/06/2017 Cbc With Differential Ord2 Eos ABS# 0.3 K/ul 01/06/2017 Cbc With Differential Ord2 Baso ABS# 0.0 K/ul 01/06/2017 Lipid Ord30 CHOL 134 mg/dL 01/06/2017 Lipid Ord30 HDL 35.0 mg/dl 01/06/2017 Lipid Ord30 TRIG 111 mg/dL 01/06/2017 Lipid Ord30 LDL 77 mg/dL 01/06/2017 Lipid Ord30 C/HDL 3.8 Ratio 01/06/2017 Comp Metabolic Ucn646 NA 139 mEq/L 01/06/2017 Comp Metabolic Vzf367 K 4.2 mEq/L 01/06/2017 Comp Metabolic Mzd516 CL 103 mEq/L 01/06/2017 Comp Metabolic Sdi169 CO2 29.0 mEq/L 01/06/2017 Comp Metabolic Syy347 AN ION GAP 11 01/06/2017 Comp Metabolic Vjq205 GL UCOSE 121 mg/dL 01/06/2017 Comp Metabolic Lqu179 Cr eat 0.8 mg/dL 01/06/2017 Comp Metabolic Fhx632 eG FR 101 ml/min/1.73m2 12/28 Comp Metabolic Smg037 BUN 9 mg/dL 01/06/2017 Comp Metabolic Yxo644 B/ C Ratio 11.5 Ratio 01/06/2017 Comp Metabolic Uie455 CA LCIUM 9.3 mg/dL 01/06/2017 Comp Metabolic Ype286 AL K PHOS 48 U/L 01/06/2017 Comp Metabolic Zjw232 T(SGOT) 15 U/L 01/06/2017 Comp Metabolic Hdh727 AL T(SGPT) 17 U/L 01/06/2017 Comp Metabolic Rvt838 BI LI T 0.6 mg/dL 01/06/2017 Comp Metabolic Ozy838 AL BUMIN 4.0 g/dL 01/06/2017 Comp Metabolic Dgu464 TP RO 6.4 g/dL 01/06/2017 Comp Metabolic Thl168 GL OB 2.4 g/dL 01/06/2017 Comp Metabolic Kgi606 A/ G Ratio 1.7 Ratio 01/06/2017 Comp Metabolic Dvq834 Os mo 277 mOsmo 01/06/2017 Tsh Ord6 [...] 30.9 pg 07/14/2016 Cbc With Differential Ord2 Deuel% 8.4 % 07/14/2016 Cbc With Differential Ord2 [...] 2.34 K/ul 07/14/2016 Cbc With Differential Ord2 Deuel ABS# 0.7 K/ul 07/14/2016 Cbc With Differential Ord2 Eos ABS# 0.4 K/ul 07/14/2016 Cbc With Differential Ord2 Baso ABS# 0.1 K/ul 07/14/2016 Comp Metabolic Rlx482 NA 139 mEq/L 07/14/2016 Comp Metabolic Nql185 K 4.4 mEq/L 07/14/2016 Comp Metabolic Rad024 CL 103 mEq/L 07/14/2016 Comp Metabolic Kio307 CO2 31.0 mEq/L 07/14/2016 Comp Metabolic Aje173 AN ION GAP 9 07/14/2016 Comp Metabolic Tkg216 GL UCOSE 109 mg/dL 07/14/2016 Comp Metabolic Feb873 Cr eat 0.9 mg/dL 07/14/2016 Comp Metabolic Wen582 eG FR 88 ml/min/1.73m2 07/14 Comp Metabolic Vvw163 BUN 12 mg/dL 07/14/2016 Comp Metabolic Tbd720 B/ C Ratio 13.6 Ratio 07/14/2016 Comp Metabolic Nti405 CA LCIUM 8.9 mg/dL 07/14/2016 Comp Metabolic Oev222 AL K PHOS 42 U/L 07/14/2016 Comp Metabolic Lcp716 T(SGOT) 14 U/L 07/14/2016 Comp Metabolic Wse335 AL T(SGPT) 13 U/L 07/14/2016 Comp Metabolic Txt145 BI LI T 0.6 mg/dL 07/14/2016 Comp Metabolic Ozx402 AL BUMIN 3.8 g/dL 07/14/2016 Comp Metabolic Rpb273 TP RO 6.2 g/dL 07/14/2016 Comp Metabolic Whi352 GL OB 2.4 g/dL 07/14/2016 Comp Metabolic Zjg857 A/ G Ratio 1.6 Ratio 07/14/2016 Comp Metabolic Pwq964 Os mo 278 mOsmo 07/14/2016 %Hba1C Wyc282 % HbA1c 86362-9 5.8 % 07/14/2016 %Hba1C Jla397 Gluc Ave 120 mg/dL 07/14/2016 Cbc With [...] 31.3 pg 01/15/2016 Cbc With Differential Ord2 Deuel% 8.4 % 01/15/2016 Cbc With Differential Ord2 MCHC 34.2 pg 01/15/2016 Cbc With Differential Ord2 Eos% 6.0 % 01/15/2016 Cbc With Differential Ord2 Baso% 0.6 % 01/15/2016 Cbc With Differential Ord2 PLT 211 K/ul 01/15/2016 Cbc With Differential Ord2 Neut ABS# 5.15 K/ul 01/15/2016 Cbc With Differential Ord2 RDW 13.5 % 01/15/2016 Cbc With Differential Ord2 Lymph ABS# 2.53 K/ul 01/15/2016 Cbc With Differential Ord2 Deuel ABS# 0.8 K/ul 01/15/2016 Cbc With Differential Ord2 Eos ABS# 0.5 K/ul 01/15/2016 Cbc With Differential Ord2 Baso ABS# 0.1 K/ul 01/15/2016 Lipid Ord30 CHOL 119 mg/dL 01/15/2016 Lipid Ord30 HDL 32.0 mg/dl 01/15/2016 Lipid Ord30 TRIG 120 mg/dL 01/15/2016 Lipid Ord30 LDL 63 mg/dL 01/15/2016 Lipid Ord30 C/HDL 3.7 Ratio 01/15/2016 %Hba1C Lsx124 % HbA1c 81848-7 5.9 % 01/15/2016 %Hba1C Vaz433 Gluc Ave 123 mg/dL 01/15/2016 Tsh Ord6 hTSH II 2.98 uIU/mL 01/15/2016 Comp Metabolic Vph537 NA 137 mEq/L 01/15/2016 Comp Metabolic Boo903 K 3.9 mEq/L 01/15/2016 Comp Metabolic Uud064 CL 104 mEq/L 01/15/2016 Comp Metabolic Wwa135 CO2 26.0 mEq/L 01/15/2016 Comp Metabolic Kwd479 AN ION GAP 11 01/15/2016 Comp Metabolic Ttf144 GL UCOSE 113 mg/dL 01/15/2016 Comp Metabolic Edv722 Cr eat 0.8 mg/dL 01/15/2016 Comp Metabolic Btw541 eG FR 101 ml/min/1.73m2 12/28 Comp Metabolic Hem694 BUN 10 mg/dL 01/15/2016 Comp Metabolic Qsx623 B/ C Ratio 12.8 Ratio 01/15/2016 Comp Metabolic Vwz874 CA LCIUM 9.1 mg/dL 01/15/2016 Comp Metabolic Ndx284 AL K PHOS 51 U/L 01/15/2016 Comp Metabolic Ije307 T(SGOT) 16 U/L 01/15/2016 Comp Metabolic Hby265 AL T(SGPT) 17 U/L 01/15/2016 Comp Metabolic Yeq189 BI LI T 0.7 mg/dL 01/15/2016 Comp Metabolic Sgy623 AL BUMIN 3.9 g/dL 01/15/2016 Comp Metabolic Vkk473 TP RO 6.4 g/dL 01/15/2016 Comp Metabolic Abh282 GL OB 2.5 g/dL 01/15/2016 Comp Metabolic Ssy677 A/ G Ratio 1.5 Ratio 01/15/2016 Comp Metabolic Zdr461 Os mo 274 mOsmo 01/15/2016 Cbc With [...] 32.7 % 07/10/2015 Cbc With Differential Ord2 Deuel% 8.5 % 07/10/2015 Cbc With Differential Ord2 [...] 2.86 K/ul 07/10/2015 Cbc With Differential Ord2 Deuel ABS# 0.7 K/ul 07/10/2015 Cbc With Differential Ord2 Eos ABS# 0.3 K/ul 07/10/2015 Cbc With Differential Ord2 Baso ABS# 0.0 K/ul 07/10/2015 Cbc With Differential Ord2 New Analyzer Notice Please note new ref ranges s tarting 03-11-2015 due to implemntation of new five part differential hematolgy analyzer. 07/10/2015 Tsh Ord6 hTSH II 3.50 uIU/mL 07/10/2015 Comp Metabolic Oza425 NA 138 mEq/L 07/10/2015 Comp Metabolic Njk602 K 4.5 mEq/L 07/10/2015 Comp Metabolic Wpj874 CL 102 mEq/L 07/10/2015 Comp Metabolic Izr158 CO2 29.0 mEq/L 07/10/2015 Comp Metabolic Lvx187 AN ION GAP 12 07/10/2015 Comp Metabolic Tnk931 GL UCOSE 105 mg/dL 07/10/2015 Comp Metabolic Ctn740 Cr eat 0.9 mg/dL 07/10/2015 Comp Metabolic Rxf088 eG FR 85 ml/min/1.73m2 07/09 Comp Metabolic Ray317 BUN 12 mg/dL 07/10/2015 Comp Metabolic Pfc291 B/ C Ratio 13.2 Ratio 07/10/2015 Comp Metabolic Jku829 CA LCIUM 9.1 mg/dL 07/10/2015 Comp Metabolic Ypv521 AL K PHOS 43 U/L 07/10/2015 Comp Metabolic Ogk778 T(SGOT) 21 U/L 07/10/2015 Comp Metabolic Otm867 AL T(SGPT) 21 U/L 07/10/2015 Comp Metabolic Lhb134 BI LI T 0.5 mg/dL 07/10/2015 Comp Metabolic Ulo643 AL BUMIN 4.0 g/dL 07/10/2015 Comp Metabolic Ssv025 TP RO 6.4 g/dL 07/10/2015 Comp Metabolic Zgz440 GL OB 2.4 g/dL 07/10/2015 Comp Metabolic Tds176 A/ G Ratio 1.6 Ratio 07/10/2015 Comp Metabolic Zkx663 Os mo 276 mOsmo 07/10/2015 Lipid Ord30 CHOL 121 mg/dL 07/10/2015 Lipid Ord30 HDL 33.0 mg/dl 07/10/2015 Lipid Ord30 TRIG 99 mg/dL 07/10/2015 Lipid Ord30 LDL 68 mg/dL 07/10/2015 Lipid Ord30 C/HDL 3.7 Ratio 07/10/2015 %Hba1C Djo356 % HbA1c 22233-2 6.0 % 07/10/2015 %Hba1C Gju106 Gluc Ave 126 mg/dL 07/10/2015 Comp Metabolic Uxt416 NA 136 mEq/L 12/04/2014 Comp Metabolic Mnw797 K 4.1 mEq/L 12/04/2014 Comp Metabolic Jbu298 CL 103 mEq/L 12/04/2014 Comp Metabolic Aso422 CO2 28.0 mEq/L 12/04/2014 Comp Metabolic Erz897 AN ION GAP 9 12/04/2014 Comp Metabolic Vqd093 GL UCOSE 118 mg/dL 12/04/2014 Comp Metabolic Gxv827 Cr eat 0.9 mg/dL 12/04/2014 Comp Metabolic Dve558 eG FR 88 ml/min/1.73m2 12/04 Comp Metabolic Zih912 BUN 10 mg/dL 12/04/2014 Comp Metabolic Pyk127 B/ C Ratio 11.4 Ratio 12/04/2014 Comp Metabolic Rrw401 CA LCIUM 9.4 mg/dL 12/04/2014 Comp Metabolic Owx697 AL K PHOS 50 U/L 12/04/2014 Comp Metabolic Fjg764 T(SGOT) 17 U/L 12/04/2014 Comp Metabolic Osv861 AL T(SGPT) 17 U/L 12/04/2014 Comp Metabolic Rqb740 BI LI T 0.7 mg/dL 12/04/2014 Comp Metabolic Nmc179 AL BUMIN 4.1 g/dL 12/04/2014 Comp Metabolic Qax305 TP RO 6.4 g/dL 12/04/2014 Comp Metabolic Usf382 GL OB 2.3 g/dL 12/04/2014 Comp Metabolic Plf989 A/ G Ratio 1.8 Ratio 12/04/2014 Comp Metabolic Yfi006 Os mo 272 mOsmo 12/04/2014 Tsh Ord6 hTSH II 4.00 uIU/mL 12/04/2014 %Hba1C Ixb167 % HbA1c 74340-6 6.2 % 12/04/2014 %Hba1C Edo609 Gluc Ave 131 mg/dL 12/04/2014 Cbc With [...] Result Effective Dates Constitutional No recent illness 07/18/2017 Constitutional No [...] Procedure Codes Date DESTRUCT PREMALG LESION CPT-4: 47898 07/19/2016 DESTRUCT PREMALG LES 2-14 CPT-4: 31947 07/19/2016 DESTRUCT PREMALG LESION CPT-4: 55769 01/13/2015 DESTRUCT PREMALG LES 2-14 CPT-4: 92898 01/13/2015 Vital Signs Date Vital 07/18/2017 Blood Pressure 1: 138/68 Code: 8480-6 BMI: 32.2 Code: 03458-1 Heart Rate 1: 59 bpm Height: 5'11" SpO2: 96% Weight: 231 lbs 01/17/2017 Blood Pressure 1: 140/78 Code: 8480-6 BMI: 32.5 Code: 14445-1 Heart Rate 1: 52 bpm Height: 5'11" SpO2: 98% Weight: 233 lbs 07/19/2016 Blood Pressure 1: 140/74 Code: 8480-6 BMI: 32.4 Code: 87484-5 Heart Rate 1: 57 bpm Height: 5'11" SpO2: 95% Weight: 232 lbs 01/19/2016 Blood Pressure 1: 132/60 Code: 8480-6 BMI: 32.9 Code: 55632-4 Heart Rate 1: 58 bpm Height: 5'11" SpO2: 96% Weight: 236 lbs 07/22/2015 Blood Pressure 1: 158/78 Code: 8480-6 Blood Pressure 1: 150/78 Code: 8480-6 BMI: 31.9 Code: 16279-9 Heart Rate 1: 55 bpm Height: 5'11" SpO2: 98% Weight: 229 lbs 01/13/2015 Blood Pressure 1: 146/74 Code: 8480-6 BMI: 32.2 Code: 74832-2 Heart Rate 1: 63 bpm Height: 5'11" SpO2: 97% Weight: 231 lbs 12/03/2014 Blood Pressure 1: 128/75 Code: 8480-6 Blood Pressure 1: 142/78 Code: 8480-6 BMI: 32.4 Code: 03132-3 Heart Rate 1: 57 bpm Height: 5'11" SpO2: 95% Weight: 232 lbs 06/04/2014 Blood Pressure 1: 138/78 Code: 8480-6 BMI: 32.5 Code: 25243-4 Heart Rate 1: 56 bpm Height: 5'11" SpO2: 96% Weight: 233 lbs 12/10/2013 Blood Pressure 1: 122/78 Code: 8480-6 BMI: 32.2 Code: 30229-0 Heart Rate 1: 76 bpm Height: 5'11" Weight: 231 lbs Functional Status No Functional Status data History of Present Illness Symptom Name Status Resu lt Effective Date Notes hypertension Quality tab kaci hypertension 07/18/2017 None [...] Encounters Encounter Performer Loca tion Codes Date ([id number]) 19704 [facility]. [facility] Diagnosis: Essential (primary) hypertension[ICD10: I10] Diagnosis: Type 2 diabetes mellitus without complications[ICD10: E11.9] Diagnosis: Actinic keratosis[ICD10: L57.0] Diagnosis: Mixed hyperlipidemia[ICD10: E78.2] Irlanda Roberson MD, [facility] CPT-4: 26466 07/18/2017 ([id number]) [id number] EST. [facility] Diagnosis: Essential (primary) hypertension[ICD10: I10] Diagnosis: Type 2 diabetes mellitus without complications[ICD10: E11.9] Diagnosis: Hypothyroidism, unspecified[ICD10: E03.9] Diagnosis: Actinic keratosis[ICD10: L57.0] Irlanda Roberson MD, [facility] CPT- 4: 91025 01/17/2017 [id number]) 06130 EST. [facility] Diagnosis: Essential (primary) hypertension[ICD10: I10] Diagnosis: Mixed hyperlipidemia[ICD10: E78.2] Diagnosis: Type 2 diabetes mellitus without complications[ICD10: E11.9] Diagnosis: Actinic keratosis[ICD10: L57.0] Irlanda Roberson MD, [facility] CPT- 4: 40402 07/19/2016 ([id number]) 52768 EST. [facility] Diagnosis: Essential (primary) hypertension[ICD10: I10] Diagnosis: Type 2 diabetes mellitus without complications[ICD10: E11.9] Diagnosis: Mixed hyperlipidemia[ICD10: E78.2] Renita Roberson MD, [facility] CPT- 4: 47877 01/19/2016 16721 EST. PATIENT, LEVEL IV Diagnosis: Essential (primary) hypertension[ICD10: I10] Diagnosis: Type 2 diabetes mellitus without complications[ICD10: E11.9] Marielle Roberson MD, [facility] CPT-4: 21063 07/22/2015 ([id number]) 76016 EST. P ATIENT, LEVEL III Diagnosis: Essential (primary) hypertension[ICD10: I10] Diagnosis: Actinic keratosis[ICD10: L57.0] Diagnosis: Personal history of diseases of the skin and subcutaneous tissue[ICD10: Z87.2] Renita Roberson MD, [facility] CPT-4: 23954 01/13/2015 ([id number]) 14367 EST. P ATIENT, LEVEL IV Diagnosis: Essential (primary) hypertension[ICD10: I10] Diagnosis: Other abnormal glucose[ICD10: R73.09] Renita Roberson MD, [facility] CPT-4: 76442 12/03/2014 ([id number]) 65591 EST. P ATIENT, LEVEL IV Diagnosis: ESSENTIAL HYPERTENSION[ICD9: 401.9] Diagnosis: Benign paroxysmal positional vertigo[ICD9: 386.11] Renita Roberson MD, C CPT-4: 35441 06/04/2014 ([id number]) OFFICE [facility] LEVEL 4 Diagnosis: ESSENTIAL HYPERTENSION[ICD9: 401.9] Diagnosis: Wrist pain, chronic[ICD9: 719.43] Diagnosis: Benign paroxysmal positional vertigo[ICD9: 386.11] Renita Roberson MD, C CPT-4: 57087 12/10/2013 Plan of Care Planned Activity Notes C odes Status Date Patient Education: Patient Medication Summary Completed 01/10/2018 Patient Education: Diabetes Completed 01/10/2018 Patient Education: Hypertension Completed 01/10/2018 Patient Education: Cholesterol Management Completed 01/10/2018 Appointment: Irlanda Huerta WPtel: [address] [place], [place] [phone] [place] (30 min) Complex 07/18/2017 Patient Education: Patient Medication Summary Completed 07/18/2017 Patient Education: Patient Medication Summary Completed 04/20/2017 Appointment: Irlanda Huerta WPtel: [address] [place], [place] [phone] [place] (30 min) Complex 01/17/2017 Patient Education: Patient Medication Summary Completed 01/17/2017 Patient Education: Obesity Completed 01/17/2017 Patient Education: Patient Medication Summary Completed 01/05/2017 Appointment: Irlanda Huerta WPtel: [phone] (30 min) Complex 07/19/2016 Patient Education: Patient Medication Summary Completed 07/19/2016 Patient Education: Obesity Completed 07/19/2016 Patient Education: Patient Medication Summary Completed 07/14/2016 Appointment: Marielle Brush [facility]Ptel[id number] [facility] - Annual Wellness Visit 01/28/2016 Appointment: Irlanda Huerta WPtel: [phone] [facility] - Annual Wellness Visit 01/26/2016 Appointment: Renita Roberson WPtel: [facility] (15 min) Moderate 01/19/2016 Patient Education: Patient Medication Summary Completed 01/19/2016 Patient Education: Obesity Completed 01/19/2016 Patient Education: Hypertension Completed 01/19/2016 Appointment: (15 min) Moderate 07/22/2015 Patient Education: Patient Medication Summary Completed 07/22/2015 Appointment: Lab Draw 07/10/2015 Appointment: Ren[facility] Roberson [facility] ([facility] min) Moderate 01/13/2015 Patient Education: Patient Medication Summary Completed 01/13/2015 Patient Education: Hypertension Completed 01/13/2015 Appointment: Renita Roberson [facility]el[facility] [facility] 12/03/2014 Patient Education: Patient Medication Summary Completed 12/03/2014 Patient Education: Hypertension Completed 12/03/2014 Appointment: Renita Roberson WPtel: [facility] Follow up 06/04/2014 Patient Education: Patient Medication Summary Completed 06/04/2014 Patient Education: Hypertension Completed 06/04/2014 Care Plan: Referral Order SNOMED-CT : [id number] Ordered 06/04/2014 Appointment: Renita Roberson WPtel: [facility] bringing in new pt paperwork New Patient 12/10/2013 Patient Education: Patient Medication Summary Completed 12/10/2013 Patient Education: Hypertension Completed 12/10/2013 Referral: Don Rodriguez WPtel: [phone] [facility] Referral Appointment Requested Instructions No Instructions
--- OUTSIDE RECORDS SUMMARY | 2019-06-22 15:27 | XMS REPORT | CCD ---
Author Author Ravinder Roberson Organization Renita Roberson MD, [facility] Address [address] [place] [address] Phone Care Team Providers Care Best Worker Name Role Phone PP Unavailable CCM Unavailable Summary Purpose Interface Exchange Insurance Providers Payer name Policy type / Coverage type Covered republican ID Effective Begin Date Effective End Date WPS Medicare Part B Medicare Part B [id number] Unknown Unknown [facility] icare Part B [id number] Unknown Unk nown Family history Father Diagnosis Age At Onset Hypertension Unknown Brother Diagnosis Age At Onset Coronary Artery Disease Unknown Cancer Unknown Hypertension Unknown Mother Diagnosis Age At Onset Hypertension Unknown Social History Social History Element Codes Description Effective Dates Marital status Unknown M arried 12/10/2013 Number of children Unknown 2 12/10/2013 Employment Unknown Retir ed 12/10/[address]: 9329855 Former smoker quit 1980 12/10/[address]: 103153561 Never drinks alcohol 12/10/2013 Allergies, Adverse Reactions, [...] Date Stop Date Sta tus Fill Instructions metformin ER 500 mg tablet,extended release 24hr RxNorm: 8240455 TAKE ONE TABLET BY MOUTH TWICE DAILY 12/04/2017 No Stop Date Active metformin ER 500 mg tablet,extended release 24hr RxNorm: 2507454 TAKE ONE TABLET BY MOUTH TWICE DAILY 03/22/2017 12/03/2017 Inactive Tylenol PM Extra Str ength 25 mg-500 mg tablet RxNorm: 5525197 1 Tablet(s) PO QHS 01/17/2017 No Stop Date Active triamcinolone aceton andrews 0.1 % topical cream RxNorm: 6529285 1 Application TOP BI D as needed 01/17/2017 05/16/2017 Inactive metformin ER 500 mg tablet,extended release 24hr RxNorm: 325902 TAKE ONE TABLET BY MOUTH TWICE DAILY 09/27/2016 03/21/2017 Inactive triamcinolone aceton andrews 0.1 % topical cream RxNorm: 3883895 1 Application TOP BI D as needed 07/19/2016 09/16/2016 Inactive metformin ER 500 mg tablet,extended release 24hr RxNorm: 995043 1 Tablet(s) PO BID 08/19/2015 09/26/2016 In active metformin ER 500 mg tablet,extended release 24hr RxNorm: 699773 1 Tablet(s) PO BID 08/14/2015 08/18/2015 In active metformin ER 500 mg tablet,extended release 24hr RxNorm: 529857 1 Tablet(s) PO BID 04/09/2015 08/13/2015 In active triamcinolone aceton andrews 0.1 % topical cream RxNorm: 4501202 1 Application TOP BI D as needed 01/13/2015 07/18/2016 Inactive Flonase Allergy Reli ef 50 mcg/actuation nasal spray,suspension RxNorm: 1 Baylis NASAL BID 12/03/2014 01/12/2015 Inactive triamcinolone aceton andrews 0.1 % topical cream RxNorm: 6687676 1 Application TOP BI D as needed 06/04/2014 01/12/2015 Inactive metformin ER 500 mg tablet,extended release 24hr RxNorm: 754581 1 Tablet(s) PO BID 03/05/2014 04/08/2015 In active multivitamin oral RxNorm: 59335 oral No Start Date Active amlodipine 5 mg tablet RxNorm: 804793 1 Tablet(s) PO daily No Start Date Active Vitamin B-12 oral RxNorm: 80352 oral No Start Date Active Baby Aspirin 81 mg c hewable tablet RxNorm: 685975 1 Tablet(s) PO daily No Start Date Active Inderal LA 160 mg ca psule,extended release RxNorm: 055862 1 Capsule(s) PO daily No Start Date Active simvastatin 10 mg ta blet RxNorm: 757361 1 Tablet(s) PO daily No Start Date Active multivitamin tablet RxNorm: 1 Tablet(s) PO daily No Start Date 01/16/2017 Inactive tramadol 50 mg tablet RxNorm: 894412 1 Tablet(s) PO TID No Start Date 07/21/2015 Inactive Tylenol PM Extra Str ength 25 mg-500 mg tablet RxNorm: 5318194 2 Tablet(s) PO QHS No Start Date 01/16/2017 Inactive metformin ER 500 mg tablet,extended release 24hr RxNorm: 073029 1 Tablet(s) PO BID No Start Date 03/04/2014 Inactive Methotrexate (Anti-R heumatic) 2.5 mg tablet RxNorm: 045989 8 Tablet(s) PO one ti me per week No Start Date 07/21/2015 Inactive Protonix 40 mg table t,delayed release RxNorm: 227310 1 Tablet(s) PO daily No Start Date 12/02/2014 Inactive Vitamin B-12 1,000 m cg tablet RxNorm: 403183 1 Tablet(s) PO daily No Start Date 01/16/2017 Inactive propranolol ER 120 m g capsule,24 hr,extended release RxNorm: 608876 1 Capsule(s) PO daily No Start Date [...] Observation Code Item Item Code Result Date %Hba1C Lae593 % HbA1c 54322-7 6.2 % 07/14/2017 %Hba1C Yvl631 Gluc Ave 131 mg/dL 07/14/2017 Cbc With [...] 31.1 pg 07/14/2017 Cbc With Differential Ord2 [place]% 8.5 % 07/14/2017 Cbc With Differential Ord2 [...] 2.76 K/ul 07/14/2017 Cbc With Differential Ord2 [place] ABS# 0.8 K/ul 07/14/2017 Cbc With Differential Ord2 Eos ABS# 0.4 K/ul 07/14/2017 Cbc With Differential Ord2 Baso ABS# 0.0 K/ul 07/14/2017 Free T4 Idf232 FREE T4 0.97 ng/dL 07/14/2017 Tsh Ord6 TSH (3rd IS) 4.46 uIU/mL 07/14/2017 Comp Metabolic Ejl051 NA 140 mEq/L 07/14/2017 Comp Metabolic Smj927 K 4.2 mEq/L 07/14/2017 Comp Metabolic Bdl271 CL 103 mEq/L 07/14/2017 Comp Metabolic Nlr728 CO2 29.0 mEq/L 07/14/2017 Comp Metabolic Gzo003 AN ION GAP 12 07/14/2017 Comp Metabolic Gvn700 GL UCOSE 127 mg/dL 07/14/2017 Comp Metabolic Nyk452 Cr eat 0.9 mg/dL 07/14/2017 Comp Metabolic Ifd105 eG FR 90 ml/min/1.73m2 07/14 Comp Metabolic Vnn219 BUN 8 mg/dL 07/14/2017 Comp Metabolic Aab373 B/ C Ratio 9.3 Ratio 07/14/2017 Comp Metabolic Jmx535 CA LCIUM 9.5 mg/dL 07/14/2017 Comp Metabolic Btn463 AL K PHOS 77 U/L 07/14/2017 Comp Metabolic Dbe546 T(SGOT) 18 U/L 07/14/2017 Comp Metabolic Dlr473 AL T(SGPT) 20 U/L 07/14/2017 Comp Metabolic Kqd339 BI LI T 0.7 mg/dL 07/14/2017 Comp Metabolic Lzm252 AL BUMIN 4.4 g/dL 07/14/2017 Comp Metabolic Ery817 TP RO 6.9 g/dL 07/14/2017 Comp Metabolic Zok166 GL OB 2.6 g/dL 07/14/2017 Comp Metabolic Rar806 A/ G Ratio 1.7 Ratio 07/14/2017 Comp Metabolic Usl258 Os mo 279 mOsmo 07/14/2017 Free T4 Ien434 FREE T4 0.97 ng/dL 04/21/2017 Tsh Ord6 TSH (3rd IS) 4.44 uIU/mL 04/21/2017 %Hba1C Slh615 % HbA1c 00451-1 6.3 % 01/06/2017 %Hba1C Sph480 Gluc Ave 134 mg/dL 01/06/2017 Cbc With [...] 31.3 pg 01/06/2017 Cbc With Differential Ord2 [place]% 9.2 % 01/06/2017 Cbc With Differential Ord2 [...] 3.60 K/ul 01/06/2017 Cbc With Differential Ord2 [place] ABS# 0.9 K/ul 01/06/2017 Cbc With Differential Ord2 Eos ABS# 0.3 K/ul 01/06/2017 Cbc With Differential Ord2 Baso ABS# 0.0 K/ul 01/06/2017 Lipid Ord30 CHOL 134 mg/dL 01/06/2017 Lipid Ord30 HDL 35.0 mg/dl 01/06/2017 Lipid Ord30 TRIG 111 mg/dL 01/06/2017 Lipid Ord30 LDL 77 mg/dL 01/06/2017 Lipid Ord30 C/HDL 3.8 Ratio 01/06/2017 Comp Metabolic Her483 NA 139 mEq/L 01/06/2017 Comp Metabolic Tsr963 K 4.2 mEq/L 01/06/2017 Comp Metabolic Gqn456 CL 103 mEq/L 01/06/2017 Comp Metabolic Gwf390 CO2 29.0 mEq/L 01/06/2017 Comp Metabolic Jim980 AN ION GAP 11 01/06/2017 Comp Metabolic Kgm725 GL UCOSE 121 mg/dL 01/06/2017 Comp Metabolic Ccj394 Cr eat 0.8 mg/dL 01/06/2017 Comp Metabolic Fuz554 eG FR 101 ml/min/1.73m2 12/28 Comp Metabolic Abz721 BUN 9 mg/dL 01/06/2017 Comp Metabolic Jnw153 B/ C Ratio 11.5 Ratio 01/06/2017 Comp Metabolic Epk653 CA LCIUM 9.3 mg/dL 01/06/2017 Comp Metabolic Oyk657 AL K PHOS 48 U/L 01/06/2017 Comp Metabolic Whe194 T(SGOT) 15 U/L 01/06/2017 Comp Metabolic Hmk629 AL T(SGPT) 17 U/L 01/06/2017 Comp Metabolic Hqk418 BI LI T 0.6 mg/dL 01/06/2017 Comp Metabolic Cyl762 AL BUMIN 4.0 g/dL 01/06/2017 Comp Metabolic Qke287 TP RO 6.4 g/dL 01/06/2017 Comp Metabolic Ydl221 GL OB 2.4 g/dL 01/06/2017 Comp Metabolic Yif392 A/ G Ratio 1.7 Ratio 01/06/2017 Comp Metabolic Byd551 Os mo 277 mOsmo 01/06/2017 Tsh Ord6 [...] 30.9 pg 07/14/2016 Cbc With Differential Ord2 [place]% 8.4 % 07/14/2016 Cbc With Differential Ord2 [...] 2.34 K/ul 07/14/2016 Cbc With Differential Ord2 [place] ABS# 0.7 K/ul 07/14/2016 Cbc With Differential Ord2 Eos ABS# 0.4 K/ul 07/14/2016 Cbc With Differential Ord2 Baso ABS# 0.1 K/ul 07/14/2016 Comp Metabolic Vso612 NA 139 mEq/L 07/14/2016 Comp Metabolic Vil237 K 4.4 mEq/L 07/14/2016 Comp Metabolic Nbf520 CL 103 mEq/L 07/14/2016 Comp Metabolic Opd540 CO2 31.0 mEq/L 07/14/2016 Comp Metabolic Nmy074 AN ION GAP 9 07/14/2016 Comp Metabolic Rdr646 GL UCOSE 109 mg/dL 07/14/2016 Comp Metabolic Zxi186 Cr eat 0.9 mg/dL 07/14/2016 Comp Metabolic Ukh154 eG FR 88 ml/min/1.73m2 07/14 Comp Metabolic Oyy635 BUN 12 mg/dL 07/14/2016 Comp Metabolic Jcc939 B/ C Ratio 13.6 Ratio 07/14/2016 Comp Metabolic Afs438 CA LCIUM 8.9 mg/dL 07/14/2016 Comp Metabolic Szu019 AL K PHOS 42 U/L 07/14/2016 Comp Metabolic Cqd830 T(SGOT) 14 U/L 07/14/2016 Comp Metabolic Cch205 AL T(SGPT) 13 U/L 07/14/2016 Comp Metabolic Nje139 BI LI T 0.6 mg/dL 07/14/2016 Comp Metabolic Syo235 AL BUMIN 3.8 g/dL 07/14/2016 Comp Metabolic Miu755 TP RO 6.2 g/dL 07/14/2016 Comp Metabolic Egs230 GL OB 2.4 g/dL 07/14/2016 Comp Metabolic Qzn500 A/ G Ratio 1.6 Ratio 07/14/2016 Comp Metabolic Gxz162 Os mo 278 mOsmo 07/14/2016 %Hba1C Dkf078 % HbA1c 91776-6 5.8 % 07/14/2016 %Hba1C Vea531 Gluc Ave 120 mg/dL 07/14/2016 Cbc With [...] 31.3 pg 01/15/2016 Cbc With Differential Ord2 [place]% 8.4 % 01/15/2016 Cbc With Differential Ord2 [...] 2.53 K/ul 01/15/2016 Cbc With Differential Ord2 [place] ABS# 0.8 K/ul 01/15/2016 Cbc With Differential Ord2 Eos ABS# 0.5 K/ul 01/15/2016 Cbc With Differential Ord2 Baso ABS# 0.1 K/ul 01/15/2016 Lipid Ord30 CHOL 119 mg/dL 01/15/2016 Lipid Ord30 HDL 32.0 mg/dl 01/15/2016 Lipid Ord30 TRIG 120 mg/dL 01/15/2016 Lipid Ord30 LDL 63 mg/dL 01/15/2016 Lipid Ord30 C/HDL 3.7 Ratio 01/15/2016 %Hba1C Jbe887 % HbA1c 30895-7 5.9 % 01/15/2016 %Hba1C Mon331 Gluc Ave 123 mg/dL 01/15/2016 Tsh Ord6 hTSH II 2.98 uIU/mL 01/15/2016 Comp Metabolic Aii633 NA 137 mEq/L 01/15/2016 Comp Metabolic Cgw687 K 3.9 mEq/L 01/15/2016 Comp Metabolic Onn684 CL 104 mEq/L 01/15/2016 Comp Metabolic Tbo592 CO2 26.0 mEq/L 01/15/2016 Comp Metabolic Siq660 AN ION GAP 11 01/15/2016 Comp Metabolic Zuv585 GL UCOSE 113 mg/dL 01/15/2016 Comp Metabolic Hgn781 Cr eat 0.8 mg/dL 01/15/2016 Comp Metabolic Mzv718 eG FR 101 ml/min/1.73m2 12/28 Comp Metabolic Xse497 BUN 10 mg/dL 01/15/2016 Comp Metabolic Rar773 B/ C Ratio 12.8 Ratio 01/15/2016 Comp Metabolic Yev083 CA LCIUM 9.1 mg/dL 01/15/2016 Comp Metabolic Fkw029 AL K PHOS 51 U/L 01/15/2016 Comp Metabolic Yvg545 T(SGOT) 16 U/L 01/15/2016 Comp Metabolic Oem996 AL T(SGPT) 17 U/L 01/15/2016 Comp Metabolic Zzz414 BI LI T 0.7 mg/dL 01/15/2016 Comp Metabolic Zcf723 AL BUMIN 3.9 g/dL 01/15/2016 Comp Metabolic Tdo575 TP RO 6.4 g/dL 01/15/2016 Comp Metabolic Spq480 GL OB 2.5 g/dL 01/15/2016 Comp Metabolic Jff731 A/ G Ratio 1.5 Ratio 01/15/2016 Comp Metabolic Tdh035 Os mo 274 mOsmo 01/15/2016 Cbc With [...] 32.7 % 07/10/2015 Cbc With Differential Ord2 [place]% 8.5 % 07/10/2015 Cbc With Differential Ord2 [...] 2.86 K/ul 07/10/2015 Cbc With Differential Ord2 [place] ABS# 0.7 K/ul 07/10/2015 Cbc With Differential Ord2 Eos ABS# 0.3 K/ul 07/10/2015 Cbc With Differential Ord2 Baso ABS# 0.0 K/ul 07/10/2015 Cbc With Differential Ord2 New Analyzer Notice Please note new ref ranges s tarting 03-11-2015 due to implemntation of new five part differential hematolgy analyzer. 07/10/2015 Tsh Ord6 hTSH II 3.50 uIU/mL 07/10/2015 Comp Metabolic Ncn042 NA 138 mEq/L 07/10/2015 Comp Metabolic Kat025 K 4.5 mEq/L 07/10/2015 Comp Metabolic Lzq186 CL 102 mEq/L 07/10/2015 Comp Metabolic Tit406 CO2 29.0 mEq/L 07/10/2015 Comp Metabolic Yys635 AN ION GAP 12 07/10/2015 Comp Metabolic Mhw443 GL UCOSE 105 mg/dL 07/10/2015 Comp Metabolic Cgq205 Cr eat 0.9 mg/dL 07/10/2015 Comp Metabolic Ewp054 eG FR 85 ml/min/1.73m2 07/09 Comp Metabolic Uzs884 BUN 12 mg/dL 07/10/2015 Comp Metabolic Eiu943 B/ C Ratio 13.2 Ratio 07/10/2015 Comp Metabolic Dwf368 CA LCIUM 9.1 mg/dL 07/10/2015 Comp Metabolic Qik500 AL K PHOS 43 U/L 07/10/2015 Comp Metabolic Kic884 T(SGOT) 21 U/L 07/10/2015 Comp Metabolic Auy663 AL T(SGPT) 21 U/L 07/10/2015 Comp Metabolic Unj561 BI LI T 0.5 mg/dL 07/10/2015 Comp Metabolic Uoa281 AL BUMIN 4.0 g/dL 07/10/2015 Comp Metabolic Owd107 TP RO 6.4 g/dL 07/10/2015 Comp Metabolic Xwi652 GL OB 2.4 g/dL 07/10/2015 Comp Metabolic Ajn173 A/ G Ratio 1.6 Ratio 07/10/2015 Comp Metabolic Sps099 Os mo 276 mOsmo 07/10/2015 Lipid Ord30 CHOL 121 mg/dL 07/10/2015 Lipid Ord30 HDL 33.0 mg/dl 07/10/2015 Lipid Ord30 TRIG 99 mg/dL 07/10/2015 Lipid Ord30 LDL 68 mg/dL 07/10/2015 Lipid Ord30 C/HDL 3.7 Ratio 07/10/2015 %Hba1C Frq476 % HbA1c 42608-8 6.0 % 07/10/2015 %Hba1C Qer538 Gluc Ave 126 mg/dL 07/10/2015 Comp Metabolic Uys169 NA 136 mEq/L 12/04/2014 Comp Metabolic Osm478 K 4.1 mEq/L 12/04/2014 Comp Metabolic Mkm723 CL 103 mEq/L 12/04/2014 Comp Metabolic Bnn945 CO2 28.0 mEq/L 12/04/2014 Comp Metabolic Vqo381 AN ION GAP 9 12/04/2014 Comp Metabolic Apy797 GL UCOSE 118 mg/dL 12/04/2014 Comp Metabolic Kha380 Cr eat 0.9 mg/dL 12/04/2014 Comp Metabolic Xaw878 eG FR 88 ml/min/1.73m2 12/04 Comp Metabolic Xnb503 BUN 10 mg/dL 12/04/2014 Comp Metabolic Otq764 B/ C Ratio 11.4 Ratio 12/04/2014 Comp Metabolic Caf101 CA LCIUM 9.4 mg/dL 12/04/2014 Comp Metabolic Bfu418 AL K PHOS 50 U/L 12/04/2014 Comp Metabolic Gyl311 T(SGOT) 17 U/L 12/04/2014 Comp Metabolic Mjz938 AL T(SGPT) 17 U/L 12/04/2014 Comp Metabolic Lbu809 BI LI T 0.7 mg/dL 12/04/2014 Comp Metabolic Hqf576 AL BUMIN 4.1 g/dL 12/04/2014 Comp Metabolic Phe178 TP RO 6.4 g/dL 12/04/2014 Comp Metabolic Ldb600 GL OB 2.3 g/dL 12/04/2014 Comp Metabolic Oll403 A/ G Ratio 1.8 Ratio 12/04/2014 Comp Metabolic Tsm826 Os mo 272 mOsmo 12/04/2014 Tsh Ord6 hTSH II 4.00 uIU/mL 12/04/2014 %Hba1C Eby020 % HbA1c 68679-1 6.2 % 12/04/2014 %Hba1C Zww688 Gluc Ave 131 mg/dL 12/04/2014 Cbc With [...] clear 06/04/2014 None Full Exam - General 1995 Ears/Nose/Throat [...] Procedure Codes Date DESTRUCT PREMALG LESION CPT-4: 72019 07/19/2016 DESTRUCT PREMALG LES 2-14 CPT-4: 58198 07/19/2016 DESTRUCT PREMALG LESION CPT-4: 95044 01/13/2015 DESTRUCT PREMALG LES 2-14 CPT-4: 07633 01/13/2015 Vital Signs Date Vital 07/18/2017 Blood Pressure 1: 138/68 Code: 8480-6 BMI: 32.2 Code: 76225-3 Heart Rate 1: 59 bpm Height: 5'11" SpO2: 96% Weight: 231 lbs 01/17/2017 Blood Pressure 1: 140/78 Code: 8480-6 BMI: 32.5 Code: 43264-8 Heart Rate 1: 52 bpm Height: 5'11" SpO2: 98% Weight: 233 lbs 07/19/2016 Blood Pressure 1: 140/74 Code: 8480-6 BMI: 32.4 Code: 56628-6 Heart Rate 1: 57 bpm Height: 5'11" SpO2: 95% Weight: 232 lbs 01/19/2016 Blood Pressure 1: 132/60 Code: 8480-6 BMI: 32.9 Code: 44365-6 Heart Rate 1: 58 bpm Height: 5'11" SpO2: 96% Weight: 236 lbs 07/22/2015 Blood Pressure 1: 158/78 Code: 8480-6 Blood Pressure 1: 150/78 Code: 8480-6 BMI: 31.9 Code: 79144-0 Heart Rate 1: 55 bpm Height: 5'11" SpO2: 98% Weight: 229 lbs 01/13/2015 Blood Pressure 1: 146/74 Code: 8480-6 BMI: 32.2 Code: 86572-7 Heart Rate 1: 63 bpm Height: 5'11" SpO2: 97% Weight: 231 lbs 12/03/2014 Blood Pressure 1: 128/75 Code: 8480-6 Blood Pressure 1: 142/78 Code: 8480-6 BMI: 32.4 Code: 33507-8 Heart Rate 1: 57 bpm Height: 5'11" SpO2: 95% Weight: 232 lbs 06/04/2014 Blood Pressure 1: 138/78 Code: 8480-6 BMI: 32.5 Code: 16943-5 Heart Rate 1: 56 bpm Height: 5'11" SpO2: 96% Weight: 233 lbs 12/10/2013 Blood Pressure 1: 122/78 Code: 8480-6 BMI: 32.2 Code: 27859-4 Heart Rate 1: 76 bpm Height: 5'11" [...] firm 01/19/2016 None skin lesion Location fin laberto and/or fingers of left hand 01/19/2016 None [...] Encounters Encounter Performer Loca tion Codes Date ([id number]) 38493 EST. P ATIENT, LEVEL IV Diagnosis: Essential (primary) hypertension[ICD10: I10] Diagnosis: Type 2 diabetes mellitus without complications[ICD10: E11.9] Diagnosis: Actinic keratosis[ICD10: L57.0] Diagnosis: Mixed hyperlipidemia[ICD10: E78.2] Irlanda Roberson MD, [facility] CPT-4: 25364 07/18/2017 [id number]) 68564 EST. P ATIENT, LEVEL IV Diagnosis: Essential (primary) hypertension[ICD10: I10] Diagnosis: Type 2 diabetes mellitus without complications[ICD10: E11.9] Diagnosis: Hypothyroidism, unspecified[ICD10: E03.9] Diagnosis: Actinic keratosis[ICD10: L57.0] Irlanda Roberson MD, [facility] CPT- 4: 25088 01/17/2017 [id number]) 16171 EST. [facility] Diagnosis: Essential (primary) hypertension[ICD10: I10] Diagnosis: Mixed hyperlipidemia[ICD10: E78.2] Diagnosis: Type 2 diabetes mellitus without complications[ICD10: E11.9] Diagnosis: Actinic keratosis[ICD10: L57.0] Irlanda Roberson MD, [facility] CPT- 4: 98545 07/19/2016 [id number]) 08209 EST. [facility] Diagnosis: Essential (primary) hypertension[ICD10: I10] Diagnosis: Type 2 diabetes mellitus without complications[ICD10: E11.9] Diagnosis: Mixed hyperlipidemia[ICD10: E78.2] Renita Roberson MD, [facility] CPT- 4: 55015 01/19/2016 60815 EST. PATIENT, LEVEL IV Diagnosis: Essential (primary) hypertension[ICD10: I10] Diagnosis: Type 2 diabetes mellitus without complications[ICD10: E11.9] Marielle Roberson MD, [facility] CPT-4: 62658 07/22/2015 ([id number]) 61689 EST. P ATIENT, LEVEL III Diagnosis: Essential (primary) hypertension[ICD10: I10] Diagnosis: Actinic keratosis[ICD10: L57.0] Diagnosis: Personal history of diseases of the skin and subcutaneous tissue[ICD10: Z87.2] Renita Roberson MD, [facility] CPT-4: 72456 01/13/2015 ([id number]) 08046 EST. P ATIENT, LEVEL IV Diagnosis: Essential (primary) hypertension[ICD10: I10] Diagnosis: Other abnormal glucose[ICD10: R73.09] Renita Roberson MD, [facility] CPT-4: 62376 12/03/2014 ([id number]) 72856 EST. P ATIENT, LEVEL IV Diagnosis: ESSENTIAL HYPERTENSION[ICD9: 401.9] Diagnosis: Benign paroxysmal positional vertigo[ICD9: 386.11] Renita Roberson MD, C CPT-4: 34517 06/04/2014 ([id number]) OFFICE VISI T, NEW - LEVEL 4 Diagnosis: ESSENTIAL HYPERTENSION[ICD9: 401.9] Diagnosis: Wrist pain, chronic[ICD9: 719.43] Diagnosis: Benign paroxysmal positional vertigo[ICD9: 386.11] Renita Roberson MD, C CPT-4: 34332 12/10/2013 Plan of Care Planned Activity Notes C odes Status Date Patient Education: Patient Medication Summary Completed 01/10/2018 Patient Education: Diabetes Completed 01/10/2018 Patient Education: Hypertension Completed 01/10/2018 Patient Education: Cholesterol Management Completed 01/10/2018 Care Plan: Free T4 Pending 01/10/2018 Care Plan: Comp Metabolic Pending 01/10/2018 Care Plan: Cbc With Differential Pending 01/10/2018 Care Plan: %Hba1C FABI C : 31533-1 Pending 01/10/2018 Care Plan: Tsh Pending 01/10/2018 Care Plan: Lipid Pending 01/10/2018 Appointment: Irlanda Huerta WPtel: [facility]5 [phone] (30 min) Complex 07/18/2017 Patient Education: Patient Medication Summary Completed 07/18/2017 Patient Education: Patient Medication Summary Completed 04/20/2017 Appointment: Irlanda Huerta WPtel: [facility]5 [phone] (30 min) Complex 01/17/2017 Patient Education: Patient Medication Summary Completed 01/17/2017 Patient Education: Obesity Completed 01/17/2017 Patient Education: Patient Medication Summary Completed 01/05/2017 Appointment: Irlanda Huerta WPtel: [phone] (30 min) Complex 07/19/2016 Patient Education: Patient Medication Summary Completed 07/19/2016 Patient Education: Obesity Completed 07/19/2016 Patient Education: Patient Medication Summary Completed 07/14/2016 Appointment: Marielle Brush WPtel[facility] [facility] - Annual Wellness Visit 01/28/2016 Appointment: Irlanda Huerta WPtel: [facility]5 [phone] [facility] - Annual Wellness Visit 01/26/2016 Appointment: Renita Roberson WPtel[facility] (15 min) Moderate 01/19/2016 Patient Education: Patient Medication Summary Completed 01/19/2016 Patient Education: Obesity Completed 01/19/2016 Patient Education: Hypertension Completed 01/19/2016 Appointment: (15 min) Moderate 07/22/2015 Patient Education: Patient Medication Summary Completed 07/22/2015 Appointment: Lab Draw 07/10/2015 Appointment: Renita Roberson WPtel: [facility]5 [phone] (15 min) Moderate 01/13/2015 Patient Education: Patient Medication Summary Completed 01/13/2015 Patient Education: Hypertension Completed 01/13/2015 Appointment: Renita Roberson WPtel: [address] [place], [place] [phone] Follow up 12/03/2014 Patient Education: Patient Medication Summary Completed 12/03/2014 Patient Education: Hypertension Completed 12/03/2014 Appointment: Renita Roberson WPtel: [address] [place] [address] Follow up 06/04/2014 Patient Education: Patient Medication Summary Completed 06/04/2014 Patient Education: Hypertension Completed 06/04/2014 Care Plan: Referral Order SNOMED-CT : [id number] Ordered 06/04/2014 Appointment: Renita Roberson WPtel: [address] [place] [address] bringing in new pt paperwork New Patient 12/10/2013 Patient Education: Patient Medication Summary Completed 12/10/2013 Patient Education: Hypertension Completed 12/10/2013 Referral: Don Rodriguez WPtel: [phone] [facility] [place] Referral Appointment Requested Instructions No Instructions
--- OUTSIDE RECORDS SUMMARY | 2019-06-22 15:28 | XMS REPORT | CCD ---
Author Author Ravinder Roberson Organization Renita Roberson MD, [facility] Address [address] [place] [address] Phone Care Team Providers Care Miter Operator Name Role Phone PP Unavailable CCM Unavailable Summary Purpose Interface Exchange Insurance Providers Payer name Policy type / Coverage type Covered republican ID Effective Begin Date Effective End Date WPS Medicare Part B Medicare Part B [id number] Unknown Unknown [facility] icare Part B [id number] Unknown Unk nown Family history Father Diagnosis Age At Onset Hypertension Unknown Brother Diagnosis Age At Onset Coronary Artery Disease Unknown Cancer Unknown Hypertension Unknown Mother Diagnosis Age At Onset Hypertension Unknown Social History Social History Element Codes Description Effective Dates Marital status Unknown M arried 12/10/2013 Number of children Unknown 2 12/10/2013 Employment Unknown Retir ed 12/10/[address]: 9824817 Former smoker quit 1980 12/10/[address]: 834214294 Never drinks alcohol 12/10/2013 Allergies, Adverse Reactions, Alerts Substance Reaction Codes Entered Date Inactivated Date Status CODEINE abdominal pain RxNorm: 2670 12/10/2013 No Inactive Date Active hydrocodone abdominal pain Unknown 12/10/2013 No Inactive Date Active Past Medical History Illness Codes Condition Status Onset Date Resolved Date Hypothryroidism Unknown Active 01/17/2017 Unknow n Actinic keratosis ICD-9: 702.0 ICD-10: L57.0 Active 01/12/2015 Unknown Essential (primary) hypertension ICD-9: 401.9 ICD-10: I10 Active 12/10/2013 Unknown Hypothyroidism, unsp ecified ICD-9: 244.9 ICD-10: E03.9 Active 01/17/2017 Unknown Type 2 diabetes glenn itus without complications ICD-9: 250.00 ICD-10: E11.9 Active 01/18/2016 Unknown Mixed hyperlipidemia ICD-9: 272.2 ICD-10: E78.2 Active 01/18/2016 Unknown Diabetes Unknown Active 07/14/2016 Unknow n Personal [...] Condition Codes Effectiv e Dates Condition Status Hypothryroidism Unknown 01/17/2017 Active Actinic keratosis ICD-9: 702.0 ICD-10: L57.0 01/12/2015 Active Essential (primary) hypertension ICD-9: 401.9 ICD-10: I10 12/10/2013 Active Hypothyroidism, unsp ecified ICD-9: 244.9 ICD-10: E03.9 01/17/2017 Active Type 2 diabetes glenn itus without complications ICD-9: 250.00 ICD-10: E11.9 01/18/2016 Active Mixed hyperlipidemia ICD-9: 272.2 ICD-10: E78.2 01/18/2016 Active Diabetes Unknown 07/14/2016 Active Personal history [...] ER 500 mg tablet,extended release 24hr RxNorm: 151083 TAKE ONE TABLET BY MOUTH TWICE DAILY 03/22/2017 No Stop Date Active Tylenol PM Extra Str ength 25 mg-500 mg tablet RxNorm: 7407907 1 Tablet(s) PO QHS 01/17/2017 No Stop Date Active triamcinolone aceton andrews 0.1 % topical cream RxNorm: 6149954 1 Application TOP BI D as needed 01/17/2017 05/16/2017 Active metformin ER 500 mg tablet,extended release 24hr RxNorm: 527976 TAKE ONE TABLET BY MOUTH TWICE DAILY 09/27/2016 03/21/2017 Inactive triamcinolone aceton andrews 0.1 % topical cream RxNorm: 3947690 1 Application TOP BI D as needed 07/19/2016 09/16/2016 Inactive metformin ER 500 mg tablet,extended release 24hr RxNorm: 743610 1 Tablet(s) PO BID 08/19/2015 09/26/2016 In active metformin ER 500 mg tablet,extended release 24hr RxNorm: 354383 1 Tablet(s) PO BID 08/14/2015 08/18/2015 In active metformin ER 500 mg tablet,extended release 24hr RxNorm: 600713 1 Tablet(s) PO BID 04/09/2015 08/13/2015 In active triamcinolone aceton andrews 0.1 % topical cream RxNorm: 2998153 1 Application TOP BI D as needed 01/13/2015 07/18/2016 Inactive Flonase Allergy Reli ef 50 mcg/actuation nasal spray,suspension RxNorm: 1 [place] NASAL BID 12/03/2014 01/12/2015 Inactive triamcinolone aceton andrews 0.1 % topical cream RxNorm: 7215436 1 Application TOP BI D as needed 06/04/2014 01/12/2015 Inactive metformin ER 500 mg tablet,extended release 24hr RxNorm: 505512 1 Tablet(s) PO BID 03/05/2014 04/08/2015 In active amlodipine 5 mg tablet RxNorm: 007390 1 Tablet(s) PO daily No Start Date Active Baby Aspirin 81 mg c hewable tablet RxNorm: 864321 1 Tablet(s) PO daily No Start Date Active simvastatin 10 mg ta blet RxNorm: 036324 1 Tablet(s) PO daily No Start Date Active propranolol ER 120 m g capsule,24 hr,extended release RxNorm: 122260 1 Capsule(s) PO daily No Start Date Active multivitamin tablet RxNorm: 1 Tablet(s) PO daily No Start Date 01/16/2017 Inactive tramadol 50 mg tablet RxNorm: 871518 1 Tablet(s) PO TID No Start Date 07/21/2015 Inactive Tylenol PM Extra Str ength 25 mg-500 mg tablet RxNorm: 8776863 2 Tablet(s) PO QHS No Start Date 01/16/2017 Inactive metformin ER 500 mg tablet,extended release 24hr RxNorm: 129548 1 Tablet(s) PO BID No Start Date 03/04/2014 Inactive Methotrexate (Anti-R heumatic) 2.5 mg tablet RxNorm: 146000 8 Tablet(s) PO one ti me per week No Start Date 07/21/2015 Inactive Protonix 40 mg table t,delayed release RxNorm: 410976 1 Tablet(s) PO daily No Start Date 12/02/2014 Inactive Vitamin B-12 1,000 m cg tablet RxNorm: 748222 1 Tablet(s) PO daily No Start Date 01/16/2017 Inactive Medication Administered No Medication Administered data Immunizations Vaccine Codes Date Status Influenza CVX: 141 11/27 completed Assessments Condition Codes Effectiv e Dates Hypothyroidism, unspecified ICD-10: E03.9 ICD-9: 244.9 01/17/2017 Essential (primary) hypertension ICD -10: I10 ICD-9: 401.9 01/17/2017 Actinic keratosis ICD-10: L57.0 ICD-9: 702.0 01/17/2017 Type 2 diabetes mellitus without complications ICD-10: E11.9 ICD-9: 250.00 01/17/2017 Mixed hyperlipidemia ICD-10: E78.2 ICD-9: 272.2 01/05/2017 Personal history of diseases of the skin and subcutaneous tissue ICD-10: Z87.2 ICD-9: V13.3 01/13/2015 Other abnormal glucose ICD-10: R73.0 9 ICD-9: 790.29 12/03/2014 Benign paroxysmal positional vertigo ICD-9: 386.11 06/04/2014 ESSENTIAL HYPERTENSION ICD-9: 401.9 06/04/2014 Wrist pain, chronic ICD-9: 719.43 12/10/2013 Reason For Visit Reason For Visit Effective Dates Notes hypertension 01/17/2017 skin lesion 07/19/2016 skin lesion 01/19/2016 hypertension 07/22/2015 rash 01/13/2015 postnasal drip 12/03/2014 hand pain 06/04/2014 lef t hand pain/tremor- Carpal tunnel hx hand pain 12/10/2013 lef t hand pain/tremor- Carpal tunnel hx Results Observation Observation Code Item Item Code Result Date %Hba1C Czz403 % HbA1c 22284-5 6.3 % 01/06/2017 %Hba1C Lkm791 Gluc Ave 134 mg/dL 01/06/2017 Cbc With Differential Ord2 WBC 10.09 K/ul 01/06/2017 Cbc With Differential Ord2 RBC 4.64 M/ul 01/06/2017 Cbc With Differential Ord2 HGB 14.5 g/dl 01/06/2017 Cbc With Differential Ord2 HCT 43.2 % 01/06/2017 Cbc With Differential Ord2 Neut% 51.8 % 01/06/2017 Cbc With Differential Ord2 Lymph% 35.7 % 01/06/2017 Cbc With Differential Ord2 MCV 93.1 fl 01/06/2017 Cbc With Differential Ord2 [place]% 9.2 % 01/06/2017 Cbc With Differential Ord2 MCH 31.3 pg 01/06/2017 Cbc With Differential Ord2 MCHC 33.6 pg 01/06/2017 Cbc With Differential Ord2 Eos% 2.9 % 01/06/2017 Cbc With Differential Ord2 Baso% 0.4 % 01/06/2017 Cbc With Differential Ord2 PLT 240 K/ul 01/06/2017 Cbc With Differential Ord2 RDW 14.0 % 01/06/2017 Cbc With Differential Ord2 Neut ABS# 5.23 K/ul 01/06/2017 Cbc With Differential Ord2 Lymph ABS# 3.60 K/ul 01/06/2017 Cbc With Differential Ord2 [place] ABS# 0.9 K/ul 01/06/2017 Cbc With Differential Ord2 Eos ABS# 0.3 K/ul 01/06/2017 Cbc With Differential Ord2 Baso ABS# 0.0 K/ul 01/06/2017 Lipid Ord30 CHOL 134 mg/dL 01/06/2017 Lipid Ord30 HDL 35.0 mg/dl 01/06/2017 Lipid Ord30 TRIG 111 mg/dL 01/06/2017 Lipid Ord30 LDL 77 mg/dL 01/06/2017 Lipid Ord30 C/HDL 3.8 Ratio 01/06/2017 Comp Metabolic Nfp783 NA 139 mEq/L 01/06/2017 Comp Metabolic Mcb845 K 4.2 mEq/L 01/06/2017 Comp Metabolic Vsc637 CL 103 mEq/L 01/06/2017 Comp Metabolic Hfo897 CO2 29.0 mEq/L 01/06/2017 Comp Metabolic Zls903 AN ION GAP 11 01/06/2017 Comp Metabolic Wgj434 GL UCOSE 121 mg/dL 01/06/2017 Comp Metabolic Dka499 Cr eat 0.8 mg/dL 01/06/2017 Comp Metabolic Lfh317 eG FR 101 ml/min/1.73m2 12/28 Comp Metabolic Isp685 BUN 9 mg/dL 01/06/2017 Comp Metabolic Rhe770 B/ C Ratio 11.5 Ratio 01/06/2017 Comp Metabolic Wlj855 CA LCIUM 9.3 mg/dL 01/06/2017 Comp Metabolic Whw123 AL K PHOS 48 U/L 01/06/2017 Comp Metabolic Yqg989 T(SGOT) 15 U/L 01/06/2017 Comp Metabolic Zph544 AL T(SGPT) 17 U/L 01/06/2017 Comp Metabolic Eae100 BI LI T 0.6 mg/dL 01/06/2017 Comp Metabolic Ylq136 AL BUMIN 4.0 g/dL 01/06/2017 Comp Metabolic Uii995 TP RO 6.4 g/dL 01/06/2017 Comp Metabolic Ogf715 GL OB 2.4 g/dL 01/06/2017 Comp Metabolic Qyg582 A/ G Ratio 1.7 Ratio 01/06/2017 Comp Metabolic Kfm891 Os mo 277 mOsmo 01/06/2017 Tsh Ord6 [...] 30.9 pg 07/14/2016 Cbc With Differential Ord2 [place]% 8.4 % 07/14/2016 Cbc With Differential Ord2 [...] 2.34 K/ul 07/14/2016 Cbc With Differential Ord2 [place] ABS# 0.7 K/ul 07/14/2016 Cbc With Differential Ord2 Eos ABS# 0.4 K/ul 07/14/2016 Cbc With Differential Ord2 Baso ABS# 0.1 K/ul 07/14/2016 Comp Metabolic Pof201 NA 139 mEq/L 07/14/2016 Comp Metabolic Jvo716 K 4.4 mEq/L 07/14/2016 Comp Metabolic Zmg101 CL 103 mEq/L 07/14/2016 Comp Metabolic Upx886 CO2 31.0 mEq/L 07/14/2016 Comp Metabolic Fqc412 AN ION GAP 9 07/14/2016 Comp Metabolic Gwy609 GL UCOSE 109 mg/dL 07/14/2016 Comp Metabolic Ffs727 Cr eat 0.9 mg/dL 07/14/2016 Comp Metabolic Sqa402 eG FR 88 ml/min/1.73m2 07/14 Comp Metabolic Vmw543 BUN 12 mg/dL 07/14/2016 Comp Metabolic Tyr754 B/ C Ratio 13.6 Ratio 07/14/2016 Comp Metabolic Kbl234 CA LCIUM 8.9 mg/dL 07/14/2016 Comp Metabolic Crk703 AL K PHOS 42 U/L 07/14/2016 Comp Metabolic Kbv857 T(SGOT) 14 U/L 07/14/2016 Comp Metabolic Pek470 AL T(SGPT) 13 U/L 07/14/2016 Comp Metabolic Xoi783 BI LI T 0.6 mg/dL 07/14/2016 Comp Metabolic Evh505 AL BUMIN 3.8 g/dL 07/14/2016 Comp Metabolic Emn339 TP RO 6.2 g/dL 07/14/2016 Comp Metabolic Pni147 GL OB 2.4 g/dL 07/14/2016 Comp Metabolic Tld625 A/ G Ratio 1.6 Ratio 07/14/2016 Comp Metabolic Fxh282 Os mo 278 mOsmo 07/14/2016 %Hba1C Cnz369 % HbA1c 48373-1 5.8 % 07/14/2016 %Hba1C Cax882 Gluc Ave 120 mg/dL 07/14/2016 Cbc With [...] 31.3 pg 01/15/2016 Cbc With Differential Ord2 [place]% 8.4 % 01/15/2016 Cbc With Differential Ord2 MCHC 34.2 pg 01/15/2016 Cbc With Differential Ord2 Eos% 6.0 % 01/15/2016 Cbc With Differential Ord2 Baso% 0.6 % 01/15/2016 Cbc With Differential Ord2 PLT 211 K/ul 01/15/2016 Cbc With Differential Ord2 RDW 13.5 % 01/15/2016 Cbc With Differential Ord2 Neut ABS# 5.15 K/ul 01/15/2016 Cbc With Differential Ord2 Lymph ABS# 2.53 K/ul 01/15/2016 Cbc With Differential Ord2 [place] ABS# 0.8 K/ul 01/15/2016 Cbc With Differential Ord2 Eos ABS# 0.5 K/ul 01/15/2016 Cbc With Differential Ord2 Baso ABS# 0.1 K/ul 01/15/2016 Lipid Ord30 CHOL 119 mg/dL 01/15/2016 Lipid Ord30 HDL 32.0 mg/dl 01/15/2016 Lipid Ord30 TRIG 120 mg/dL 01/15/2016 Lipid Ord30 LDL 63 mg/dL 01/15/2016 Lipid Ord30 C/HDL 3.7 Ratio 01/15/2016 %Hba1C Lpm005 % HbA1c 28030-2 5.9 % 01/15/2016 %Hba1C Yyk657 Gluc Ave 123 mg/dL 01/15/2016 Tsh Ord6 hTSH II 2.98 uIU/mL 01/15/2016 Comp Metabolic Ufj825 NA 137 mEq/L 01/15/2016 Comp Metabolic Kyq941 K 3.9 mEq/L 01/15/2016 Comp Metabolic Ioe766 CL 104 mEq/L 01/15/2016 Comp Metabolic Kur526 CO2 26.0 mEq/L 01/15/2016 Comp Metabolic Fgr706 AN ION GAP 11 01/15/2016 Comp Metabolic Srg833 GL UCOSE 113 mg/dL 01/15/2016 Comp Metabolic Mbq441 Cr eat 0.8 mg/dL 01/15/2016 Comp Metabolic Tll698 eG FR 101 ml/min/1.73m2 12/28 Comp Metabolic Otj421 BUN 10 mg/dL 01/15/2016 Comp Metabolic Ixp464 B/ C Ratio 12.8 Ratio 01/15/2016 Comp Metabolic Wwj360 CA LCIUM 9.1 mg/dL 01/15/2016 Comp Metabolic Qmt252 AL K PHOS 51 U/L 01/15/2016 Comp Metabolic Dga487 T(SGOT) 16 U/L 01/15/2016 Comp Metabolic Zjo829 AL T(SGPT) 17 U/L 01/15/2016 Comp Metabolic Kbo674 BI LI T 0.7 mg/dL 01/15/2016 Comp Metabolic Yxi229 AL BUMIN 3.9 g/dL 01/15/2016 Comp Metabolic Boo412 TP RO 6.4 g/dL 01/15/2016 Comp Metabolic Iaj327 GL OB 2.5 g/dL 01/15/2016 Comp Metabolic Flp718 A/ G Ratio 1.5 Ratio 01/15/2016 Comp Metabolic Svo401 Os mo 274 mOsmo 01/15/2016 Cbc With [...] 31.2 pg 07/10/2015 Cbc With Differential Ord2 [place]% 8.5 % 07/10/2015 Cbc With Differential Ord2 MCHC 33.7 pg 07/10/2015 Cbc With Differential Ord2 Eos% 3.7 % 07/10/2015 Cbc With Differential Ord2 Baso% 0.5 % 07/10/2015 Cbc With Differential Ord2 PLT 233 K/ul 07/10/2015 Cbc With Differential Ord2 Neut ABS# 4.78 K/ul 07/10/2015 Cbc With Differential Ord2 RDW 13.8 % 07/10/2015 Cbc With Differential Ord2 Lymph ABS# 2.86 K/ul 07/10/2015 Cbc With Differential Ord2 [place] ABS# 0.7 K/ul 07/10/2015 Cbc With Differential Ord2 Eos ABS# 0.3 K/ul 07/10/2015 Cbc With Differential Ord2 Baso ABS# 0.0 K/ul 07/10/2015 Cbc With Differential Ord2 New Analyzer Notice Please note new ref ranges s tarting 03-11-2015 due to implemntation of new five part differential hematolgy analyzer. 07/10/2015 Tsh Ord6 hTSH II 3.50 uIU/mL 07/10/2015 Comp Metabolic Afu927 NA 138 mEq/L 07/10/2015 Comp Metabolic Eui326 K 4.5 mEq/L 07/10/2015 Comp Metabolic Brq754 CL 102 mEq/L 07/10/2015 Comp Metabolic Tcl851 CO2 29.0 mEq/L 07/10/2015 Comp Metabolic Wxe525 AN ION GAP 12 07/10/2015 Comp Metabolic Mjh110 GL UCOSE 105 mg/dL 07/10/2015 Comp Metabolic Gid108 Cr eat 0.9 mg/dL 07/10/2015 Comp Metabolic Fmg256 eG FR 85 ml/min/1.73m2 07/09 Comp Metabolic Olo748 BUN 12 mg/dL 07/10/2015 Comp Metabolic Ffq632 B/ C Ratio 13.2 Ratio 07/10/2015 Comp Metabolic Phc394 CA LCIUM 9.1 mg/dL 07/10/2015 Comp Metabolic Anr829 AL K PHOS 43 U/L 07/10/2015 Comp Metabolic Kme516 T(SGOT) 21 U/L 07/10/2015 Comp Metabolic Tmt144 AL T(SGPT) 21 U/L 07/10/2015 Comp Metabolic Szd243 BI LI T 0.5 mg/dL 07/10/2015 Comp Metabolic Tao622 AL BUMIN 4.0 g/dL 07/10/2015 Comp Metabolic Mny028 TP RO 6.4 g/dL 07/10/2015 Comp Metabolic Xed464 GL OB 2.4 g/dL 07/10/2015 Comp Metabolic Yhu454 A/ G Ratio 1.6 Ratio 07/10/2015 Comp Metabolic Pjw738 Os mo 276 mOsmo 07/10/2015 Lipid Ord30 CHOL 121 mg/dL 07/10/2015 Lipid Ord30 HDL 33.0 mg/dl 07/10/2015 Lipid Ord30 TRIG 99 mg/dL 07/10/2015 Lipid Ord30 LDL 68 mg/dL 07/10/2015 Lipid Ord30 C/HDL 3.7 Ratio 07/10/2015 %Hba1C Hal196 % HbA1c 82313-7 6.0 % 07/10/2015 %Hba1C Twz044 Gluc Ave 126 mg/dL 07/10/2015 Comp Metabolic Sfx474 NA 136 mEq/L 12/04/2014 Comp Metabolic Yaq421 K 4.1 mEq/L 12/04/2014 Comp Metabolic Xiq329 CL 103 mEq/L 12/04/2014 Comp Metabolic Grq385 CO2 28.0 mEq/L 12/04/2014 Comp Metabolic Ick463 AN ION GAP 9 12/04/2014 Comp Metabolic Drd019 GL UCOSE 118 mg/dL 12/04/2014 Comp Metabolic Kns523 Cr eat 0.9 mg/dL 12/04/2014 Comp Metabolic Akx683 eG FR 88 ml/min/1.73m2 12/04 Comp Metabolic Hdm019 BUN 10 mg/dL 12/04/2014 Comp Metabolic Xlj665 B/ C Ratio 11.4 Ratio 12/04/2014 Comp Metabolic Vmj808 CA LCIUM 9.4 mg/dL 12/04/2014 Comp Metabolic Yjz183 AL K PHOS 50 U/L 12/04/2014 Comp Metabolic Non275 T(SGOT) 17 U/L 12/04/2014 Comp Metabolic Iak721 AL T(SGPT) 17 U/L 12/04/2014 Comp Metabolic Mir489 BI LI T 0.7 mg/dL 12/04/2014 Comp Metabolic Yoc496 AL BUMIN 4.1 g/dL 12/04/2014 Comp Metabolic Com605 TP RO 6.4 g/dL 12/04/2014 Comp Metabolic Wyi219 GL OB 2.3 g/dL 12/04/2014 Comp Metabolic Rbw222 A/ G Ratio 1.8 Ratio 12/04/2014 Comp Metabolic Gqy557 Os mo 272 mOsmo 12/04/2014 Tsh Ord6 hTSH II 4.00 uIU/mL 12/04/2014 %Hba1C Zup904 % HbA1c 10591-4 6.2 % 12/04/2014 %Hba1C Qmk033 Gluc Ave 131 mg/dL 12/04/2014 Cbc With [...] Result Effective Dates Constitutional No recent illness 01/17/2017 Constitutional No [...] clear 12/03/2014 None Full Exam - General 1995 Ears/Nose/Throat oral cavity/pharynx/larynx Overall: hypopharynx benign 12/03/2014 [...] dentition 12/10/2013 None Full Exam - General 1995 Ears/Nose/Throat oral cavity/pharynx/larynx Overall: hypopharynx benign 12/10/2013 None Full Exam - General 1995 Ears/Nose/Throat oral cavity/pharynx/larynx Overall: no masses 12/10/2013 None Full Exam - General 1994 Ears/Nose/Throat oral cavity/pharynx/larynx Overall: oral mucosa clear 12/10/2013 None Full Exam - General 1995 Ears/Nose/Throat [...] Procedure Codes Date DESTRUCT PREMALG LESION CPT-4: 03104 07/19/2016 DESTRUCT PREMALG LES 2-14 CPT-4: 25320 07/19/2016 DESTRUCT PREMALG LESION CPT-4: 25869 01/13/2015 DESTRUCT PREMALG LES 2-14 CPT-4: 58420 01/13/2015 Vital Signs Date Vital 01/17/2017 Blood Pressure 1: 140/78 Code: 8480-6 BMI: 32.5 Code: 39150-0 Heart Rate 1: 52 bpm Height: 5'11" SpO2: 98% Weight: 233 lbs 07/19/2016 Blood Pressure 1: 140/74 Code: 8480-6 BMI: 32.4 Code: 39935-9 Heart Rate 1: 57 bpm Height: 5'11" SpO2: 95% Weight: 232 lbs 01/19/2016 Blood Pressure 1: 132/60 Code: 8480-6 BMI: 32.9 Code: 77530-4 Heart Rate 1: 58 bpm Height: 5'11" SpO2: 96% Weight: 236 lbs 07/22/2015 Blood Pressure 1: 150/78 Code: 8480-6 Blood Pressure 1: 158/78 Code: 8480-6 BMI: 31.9 Code: 88351-1 Heart Rate 1: 55 bpm Height: 5'11" SpO2: 98% Weight: 229 lbs 01/13/2015 Blood Pressure 1: 146/74 Code: 8480-6 BMI: 32.2 Code: 56428-4 Heart Rate 1: 63 bpm Height: 5'11" SpO2: 97% Weight: 231 lbs 12/03/2014 Blood Pressure 1: 128/75 Code: 8480-6 Blood Pressure 1: 142/78 Code: 8480-6 BMI: 32.4 Code: 99774-9 Heart Rate 1: 57 bpm Height: 5'11" SpO2: 95% Weight: 232 lbs 06/04/2014 Blood Pressure 1: 138/78 Code: 8480-6 BMI: 32.5 Code: 75863-6 Heart Rate 1: 56 bpm Height: 5'11" SpO2: 96% Weight: 233 lbs 12/10/2013 Blood Pressure 1: 122/78 Code: 8480-6 BMI: 32.2 Code: 36346-4 Heart Rate 1: 76 bpm Height: 5'11" Weight: 231 lbs Functional Status No Functional Status data History of Present Illness Symptom Name Status Resu lt Effective Date Notes hypertension Onset and Resolution ongoing 01/17/2017 None [...] Encounters Encounter Performer Loca tion Codes Date () 31542 EST. P ATIENT, LEVEL IV Diagnosis: Essential (primary) hypertension[ICD10: I10] Diagnosis: Type 2 diabetes mellitus without complications[ICD10: E11.9] Diagnosis: Hypothyroidism, unspecified[ICD10: E03.9] Diagnosis: Actinic keratosis[ICD10: L57.0] Irlanda Roberson MD, [facility] CPT- 4: 73775 01/17/2017 ([id number]) 33812 EST. P ATIENT, LEVEL III Diagnosis: Essential (primary) hypertension[ICD10: I10] Diagnosis: Mixed hyperlipidemia[ICD10: E78.2] Diagnosis: Type 2 diabetes mellitus without complications[ICD10: E11.9] Diagnosis: Actinic keratosis[ICD10: L57.0] Irlanda Roberson MD, [facility] CPT- 4: 09894 07/19/2016 ([id number]) 62595 EST. P ATIENT, LEVEL IV Diagnosis: Essential (primary) hypertension[ICD10: I10] Diagnosis: Type 2 diabetes mellitus without complications[ICD10: E11.9] Diagnosis: Mixed hyperlipidemia[ICD10: E78.2] Renita Roberson MD, [facility] CPT- 4: 04090 01/19/2016 68213 EST. PATIENT, LEVEL IV Diagnosis: Essential (primary) hypertension[ICD10: I10] Diagnosis: Type 2 diabetes mellitus without complications[ICD10: E11.9] Marielle Roberson MD, [facility] CPT-4: 91281 07/22/2015 ([id number]) 51767 EST. P ATIENT, LEVEL III Diagnosis: Essential (primary) hypertension[ICD10: I10] Diagnosis: Actinic keratosis[ICD10: L57.0] Diagnosis: Personal history of diseases of the skin and subcutaneous tissue[ICD10: Z87.2] Renita Roberson MD, [facility] CPT-4: 96222 01/13/2015 ([id number]) 22241 EST. P ATIENT, LEVEL IV Diagnosis: Essential (primary) hypertension[ICD10: I10] Diagnosis: Other abnormal glucose[ICD10: R73.09] Renita Roberson MD, [facility] CPT-4: 37878 12/03/2014 ([id number]) 51725 EST. [facility] Diagnosis: ESSENTIAL HYPERTENSION[ICD9: 401.9] Diagnosis: Benign paroxysmal positional vertigo[ICD9: 386.11] Renita Roberson MD, C CPT-4: 65369 06/04/2014 ([id number]) OFFICE VISI T, NEW - LEVEL 4 Diagnosis: ESSENTIAL HYPERTENSION[ICD9: 401.9] Diagnosis: Wrist pain, chronic[ICD9: 719.43] Diagnosis: Benign paroxysmal positional vertigo[ICD9: 386.11] Renita Roberson MD, C CPT-4: 86801 12/10/2013 Plan of Care Planned Activity Notes C odes Status Date Appointment: Irlanda Huerta WPtel: [facility]5 [phone] (30 min) Complex 01/17/2017 Patient Education: Patient Medication Summary Completed 01/17/2017 Patient Education: Obesity Completed 01/17/2017 Patient Education: Patient Medication Summary Completed 01/05/2017 Appointment: Irlanda Huerta WPtel: [phone] (30 min) Complex 07/19/2016 Patient Education: Patient Medication Summary Completed 07/19/2016 Patient Education: Obesity Completed 07/19/2016 Patient Education: Patient Medication Summary Completed 07/14/2016 Appointment: Marielle Brush WPtel: [facility] [facility] - Annual Wellness Visit 01/28/2016 Appointment: Irlanda Huerta WPtel: [facility]5 [phone] [facility] - Annual Wellness Visit 01/26/2016 Appointment: Renita Roberson WPtel[facility] (15 min) Moderate 01/19/2016 Patient Education: Patient Medication Summary Completed 01/19/2016 Patient Education: Obesity Completed 01/19/2016 Patient Education: Hypertension Completed 01/19/2016 Appointment: (15 min) Moderate 07/22/2015 Patient Education: Patient Medication Summary Completed 07/22/2015 Appointment: Lab Draw 07/10/2015 Appointment: Renita Roberson WPtel: [phone] [facility] (15 min) Moderate 01/13/2015 Patient Education: Patient Medication Summary Completed 01/13/2015 Patient Education: Hypertension Completed 01/13/2015 Appointment: Renita Roberson WPtel: [facility]4 [facility] Follow up 12/03/2014 Patient Education: Patient Medication Summary Completed 12/03/2014 Patient Education: Hypertension Completed 12/03/2014 Appointment: Renita Roberson WPtel: [facility]9 [facility] Follow up 06/04/2014 Patient Education: Patient Medication Summary Completed 06/04/2014 Patient Education: Hypertension Completed 06/04/2014 Care Plan: Referral Order SNOMED-CT : [id number] Ordered 06/04/2014 Appointment: Renita Roberson WPtel: [facility]7 [facility] bringing in new pt paperwork New Patient 12/10/2013 Patient Education: Patient Medication Summary Completed 12/10/2013 Patient Education: Hypertension Completed 12/10/2013 Referral: Don Rodriguez WPtel: [phone] [facility] Referral Appointment Requested Instructions No Instructions
--- OUTSIDE RECORDS SUMMARY | 2019-06-22 15:29 | XMS REPORT | Continuity of Care Document ---
Author Organization Unknown Address Unknown Phone Unavailable Allergies Active Description Code Type Severity Reaction Onset Reported/Identified Relationship to Patient Clinical Status Yes codeine [id number] Drug Allergy Unknown N/A 09/02/2005 Yes hydrocodone [id number] Drug Aller gy Mild N/A 03/22/2007 Yes amlodipine [id number] Drug Allerg y Unknown N/A 10/25/2013 Yes benazepril [id number] Drug Allerg y Unknown N/A 10/25/2013 Yes telmisartan [id number] Drug Aller gy Unknown N/A 10/25/2013 Medications There is no data. Problems Date Dx Coded Attending Type Code Diagnosis Diagnosed By 04/21/2010 Ot 250.00 04/21/2010 Ot 717.2 04/21/2010 Ot 717.7 04/21/2010 Ot 733.92 04/21/2010 Ot V57.1 04/21/2010 Ot V58.69 10/30/2013 GILLES SUAREZ MD Ot 354.0 CARPAL TUNNEL SYNDROME 10/30/2013 GILLES SUAREZ MD Ot 414.00 CORON ATHEROSCLER NOS TYPE VESSEL, NATIV 10/30/2013 GILLES SUAREZ MD Ot V45.81 AORTOCORONARY BYPASS 10/30/2013 GILLES SUAREZ MD Ot V58.69 OT MED,LT,CURRENT USE 12/25/2013 GILLES SUAREZ MD Ot V57.21 ENCOUNTER FOR OCCUPATIONAL THERAPY 12/25/2013 GILLES SUAREZ MD Ot V58.78 AFTERCARE POST SURGERY MUSCULOSKELETAL S 07/01/2014 SONYA WOODRUFF MD Ot V72.84 07/02/2014 SONYA WOODRUFF MD Ot 455.0 INT HEMORRHOID W/O COMPL 07/02/2014 SONYA WOODRUFF MD Ot 455.3 EXT HEMORRHOID W/O COMPL 07/02/2014 SONYA WOODRUFF MD Ot 562.10 DIVERTICULOSIS COLON (W/O MENT OF HEMORR 07/02/2014 KACY OCHOA, SONYA Ot V12.72 PERSONAL HISTORY OF COLONIC POLYPS 01/13/2015 Ot 717.3 01/13/2015 Ot V72.83 01/13/2015 Ot V74.8 01/13/2015 Ot 397.0 01/13/2015 Ot 414.00 01/13/2015 Ot 424.0 01/13/2015 Ot 786.09 01/13/2015 ERICK OCHOA, GILLES Santiago Ot 354.0 01/13/2015 ERICK OCHOA, GILLES Santiago Ot V72.84 01/13/2015 ERICK OCHOA, GILLES Santiago Ot V74.8 01/13/2015 KACY OCHOA, SONYA Ot V72.84 01/13/2015 BAIJERMAN VO [employer] Ot E78.5 01/13/2015 JERMAN PAREKH [employer] Ot G47.30 01/13/2015 JERMAN PAREKH [employer] Ot I 10 01/13/2015 JERMAN PAREKH L [employer] Ot I25.10 01/13/2015 JERMAN PAREKH L [employer] Ot I45.10 01/13/2015 JERMAN PAREKH L [employer] Ot I73.9 01/13/2015 JERMAN PAREKH L [employer] Ot I77.9 01/13/2015 Ot 717.3 01/13/2015 Ot V72.83 01/13/2015 Ot V74.8 01/13/2015 Ot 397.0 01/13/2015 Ot 414.00 01/13/2015 Ot 424.0 01/13/2015 Ot 786.09 01/13/2015 ERICK OCHOA, GILLES Santiago Ot 354.0 01/13/2015 ERICK OCHOA, GILLES Santiago Ot V72.84 01/13/2015 ERICK OCHOA, GILLES Santiago Ot V74.8 01/13/2015 KACY OCHOA, SONYA Ot V72.84 01/13/2015 BAIJERMAN VO L [employer] Ot E78.5 01/13/2015 JERMAN PAREKH L [employer] Ot G47.30 01/13/2015 JERMAN PAREKH [employer] Ot I 10 01/13/2015 JERMAN PAREKH [employer] Ot I25.10 01/13/2015 JERMAN PAREKH L [employer] Ot I45.10 01/13/2015 BAIMA, JERMAN L [employer] Ot I73.9 01/13/2015 BAIMA, JERMAN L [employer] Ot I77.9 01/28/2015 BAIMA, JERMAN L [employer] Ot E78.5 01/28/2015 BAIMA, JERMAN L [employer] Ot G47.30 01/28/2015 BAIMA, JERMAN L [employer] Ot I 10 01/28/2015 BAIMA, JERMAN L [employer] Ot I25.10 01/28/2015 BAIMA, JERMAN L [employer] Ot I45.10 01/28/2015 BAIMA, JERMAN L [employer] Ot I73.9 01/28/2015 BAIMA, JERMAN L [employer] Ot I77.9 01/29/2015 BAIMA, JERMAN L [employer] Ot E78.5 01/29/2015 BAIMA, JERMAN L [employer] Ot G47.30 01/29/2015 BAIMA, JERMAN L [employer]BER Ot I 10 01/29/2015 BAIMA, JERMAN L [employer] Ot I25.10 01/29/2015 BAIMA, JERMAN L [employer] Ot I45.10 01/29/2015 BAIMA, JERMAN L [employer] Ot I73.9 01/29/2015 BAIMA, JERMAN L [employer] Ot I77.9 02/04/2015 BAIMA, JERMAN L [employer] Ot E78.5 02/04/2015 BAIMA, JERMAN L [employer] Ot G47.30 02/04/2015 BAIMA, JERMAN L [employer]BER Ot I 10 02/04/2015 BAIMA, JERMAN L [employer] Ot I25.10 02/04/2015 BAIMA, JERMAN L [employer] Ot I45.10 02/04/2015 BAIMA, JERMAN L [employer] Ot I73.9 02/04/2015 BAIMA, JERMAN L [employer]BER Ot I77.9 02/16/2015 BAIMA, JERMAN L [employer]BER Ot E78.5 02/16/2015 BAIMA, JERMAN L [employer]BER Ot G47.30 02/16/2015 BAIMA, JERMAN L [employer]BER Ot I 10 02/16/2015 BAIMA, JERMAN L [employer]BER Ot I25.10 02/16/2015 BAIMA, JERMAN L [employer]BER Ot I45.10 02/16/2015 BAIMA, JERMAN L [employer] Ot I73.9 02/16/2015 BAIMA, JERMAN L [employer] Ot I77.9 06/19/2017 ERICK OCHOA, GILLES Santiago Ot 354.0 CARPAL TUNNEL SYNDROME 06/19/2017 ERICK OCHOA, GILLES Santiago Ot V72.84 EXAM PRE-OPERATIVE NOS 06/19/2017 ERICK OCHOA, GILLES Santiago Ot V74.8 SCREEN-BACTERIAL DIS NEC 06/19/2017 KACY OCHOA, SONYA Ot V72.84 EXAM PRE-OPERATIVE NOS 06/19/2017 BAIMA, JERMAN L [employer] Ot E78.5 HYPERLIPIDEMIA, UNSPECIFIED 06/19/2017 BAIMA, JERMAN L [employer] Ot G47.30 SLEEP APNEA, UNSPECIFIED 06/19/2017 BAIMA, JERMAN L [employer] Ot I 10 ESSENTIAL (PRIMARY) HYPERTENSION 06/19/2017 BAIMA, JERMAN L [employer] Ot I25.10 ATHSCL HEART DISEASE OF [place] CORONARY 06/19/2017 BAIMA, JERMAN L [employer] Ot I45.10 UNSPECIFIED RIGHT BUNDLE-BRANCH BLOCK 06/19/2017 BAIMA, JERMAN L [employer] Ot I73.9 PERIPHERAL VASCULAR DISEASE, UNSPECIFIED 06/19/2017 BAIMA, JERMAN L [employer] Ot I77.9 DISORDER OF ARTERIES AND ARTERIOLES, UNS 06/19/2017 BAIMA, JERMAN L [employer] Ot E78.5 HYPERLIPIDEMIA, UNSPECIFIED 06/19/2017 BAIMA, JERMAN L [employer] Ot G47.30 SLEEP APNEA, UNSPECIFIED 06/19/2017 BAIMA, JERMAN L [employer]BER Ot I 10 ESSENTIAL (PRIMARY) HYPERTENSION 06/19/2017 BAIMA, JERMAN L [employer]BER Ot I25.10 ATHSCL HEART DISEASE OF [place] CORONARY 06/19/2017 BAIMA, JERMAN L [employer]BER Ot I45.10 UNSPECIFIED RIGHT BUNDLE-BRANCH BLOCK 06/19/2017 BAIMA, JERMAN L [employer]BER Ot I73.9 PERIPHERAL VASCULAR DISEASE, UNSPECIFIED 06/19/2017 BAIMA, JERMAN L [employer]BER Ot I77.9 DISORDER OF ARTERIES AND ARTERIOLES, UNS 06/22/2017 GILLES BARRIOS DO Ot M43.17 SPONDYLOLISTHESIS, LUMBOSACRAL REGION 06/22/2017 GILLES BARRIOS DO Ot M46.87 OTH INFLAMMATORY SPONDYLOPATHIES, LUMBOS 06/22/2017 MELTNDONTA BLACKGILLES Ot M51.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, L 06/22/2017 MELREBECA BLACKGILLES Ot 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 07/12/2017 MELREBECA BLACKGILLES Ot M43.17 SPONDYLOLISTHESIS, LUMBOSACRAL REGION 07/12/2017 [facility] M46.87 OT INFLAMMATORY SPONDYLOPATHIES, LUMBOS 07/12/2017 [facility] GILLES Ot M51.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, L 07/12/2017 MELTNDONTA BLACKGILLES Ot 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 07/20/2017 MELTNDONTA BLACKGILLES Ot M43.17 SPONDYLOLISTHESIS, LUMBOSACRAL REGION 07/20/2017 MELTNDONTA BLACKGILLES Ot M46.87 OT INFLAMMATORY SPONDYLOPATHIES, LUMBOS 07/20/2017 [facility] Ot M51.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, L 07/20/2017 [facility] Ot 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 07/27/2018 ERICK OCHOA, GILLES Santiago Ot 354.0 CARPAL TUNNEL SYNDROME 07/27/2018 ERICK OCHOA, GILLES Santiago Ot V72.84 EXAM PRE-OPERATIVE NOS 07/27/2018 ERICK OCHOA, GILLES Santiago Ot V74.8 SCREEN-BACTERIAL DIS NEC 07/27/2018 KACY OCHOA, SONYA Ot V72.84 EXAM PRE-OPERATIVE NOS 07/27/2018 JERMAN PAREKH [employer] Ot E78.5 HYPERLIPIDEMIA, UNSPECIFIED 07/27/2018 JERMAN PAREKH [employer] Ot G47.30 SLEEP APNEA, UNSPECIFIED 07/27/2018 JERMAN PAREKH [employer] Ot I 10 ESSENTIAL (PRIMARY) HYPERTENSION 07/27/2018 JERMAN PAREKH [employer]BER Ot I25.10 ATHSCL HEART DISEASE OF [place] CORONARY 07/27/2018 JERMAN PAREKH [employer]BER Ot I45.10 UNSPECIFIED RIGHT BUNDLE-BRANCH BLOCK 07/27/2018 JERMAN PAREKH [employer]BER Ot I73.9 PERIPHERAL VASCULAR DISEASE, UNSPECIFIED 07/27/2018 HIRAMJERMAN VO [employer]BER Ot I77.9 DISORDER OF ARTERIES AND ARTERIOLES, UNS 07/27/2018 HIRAMJERMAN VO Moon [employer]BER Ot E78.5 HYPERLIPIDEMIA, UNSPECIFIED 07/27/2018 HIRAMJERMAN VO [employer]BER Ot G47.30 SLEEP APNEA, UNSPECIFIED 07/27/2018 HIRAMJERMAN VO [employer]BER Ot I 10 ESSENTIAL (PRIMARY) HYPERTENSION 07/27/2018 IGLESIA JERMAN Moon [employer]MEMBER Ot I25.10 ATHSCL HEART DISEASE OF [place] CORONARY 07/27/2018 HIRAMJERMAN VO Moon [employer]BER Ot I45.10 UNSPECIFIED RIGHT BUNDLE-BRANCH BLOCK 07/27/2018 JERMAN PAREKH [employer]BER Ot I73.9 PERIPHERAL VASCULAR DISEASE, UNSPECIFIED 07/27/2018 HIRAMTAVO JERMAN Moon [employer]BER Ot I77.9 DISORDER OF ARTERIES AND ARTERIOLES, UNS 07/27/2018 GILLES BARRIOS DO Ot M43.17 SPONDYLOLISTHESIS, LUMBOSACRAL REGION 07/27/2018 GILLES BARRIOS DO Ot M46.87 OTH INFLAMMATORY SPONDYLOPATHIES, LUMBOS 07/27/2018 GILLES BARRIOS DO Ot M51.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, L 07/27/2018 GILLES BARRIOS DO Ot 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 08/06/2018 JERMAN PAREKH [employer]BER Ot I25.10 ATHSCL HEART DISEASE OF [place] CORONARY 08/06/2018 JERMAN PAREKH [employer]BER Ot I77.9 DISORDER OF ARTERIES AND ARTERIOLES, UNS 08/22/2018 JERMAN PAREKH [employer]BER Ot I25.10 ATHSCL HEART DISEASE OF [place] CORONARY 08/22/2018 IGLESIA JERMAN L [employer]MEMBER Ot I77.9 DISORDER OF ARTERIES AND ARTERIOLES, UNS 08/28/2018 JERMAN PAREKH [employer] M[employer]MEMBER Ot I25.10 ATHSCL HEART DISEASE OF [place] CORONARY 08/28/2018 IGLESIA JERMAN L [employer]BER Ot I77.9 DISORDER OF ARTERIES AND ARTERIOLES, UNS Procedures There is no data. Results There is no data. Encounters ACCT No. Visit Date/Time Discharge Status Pt. Type Provider Facility Loc./Unit Complaint [id number] 07/31/2018 07:17:00 019 23:59:59 CLS Outpatient BAIJERMAN VO [facility] CARD CAD [id number] 01/31/2018 10:44:00 018 23:59:59 CLS Preadmit JOSH MORENO MD [facility] REHAB LBP PAIN; PAIN IN R LE [id number] 06/21/2017 08:35:00 018 23:59:59 CLS Outpatient GILLES BARRIOS DO [facility] RAD M54.16 LUMBAR R ADICULOPATHY [id number] 01/13/2015 07:32:00 015 23:59:59 CLS Outpatient JERMAN PAREKH [facility] CARD CAD,RT BUNDLE BRANCH BL OCK [id number] 01/06/2015 13:11:00 015 23:59:59 CLS Outpatient JERMAN PAREKH [facility] RAD CLAUDICATION [id number] 07/02/2014 07:26:00 015 10:40:00 DIS Outpatient SONYA WOODRUFF MD [facility] HISTORY OF POLYPS/SCREE AMI [id number] 06/26/2014 06:43:00 015 23:59:59 CLS Outpatient SONYA WOODRUFF MD [facility] PREOP HISTORY OF POLYPS [id number] 12/04/2013 14:43:00 014 15:45:00 DIS Outpatient GILLES SUAREZ MD [facility] REHAB S/P LEFT CTR [id number] 10/30/2013 06:00:00 014 09:45:00 DIS Outpatient GILLES SUAREZ MD [facility] LEFT CARPAL TUNNEL SYND KAZ [id number] 10/25/2013 08:58:00 014 23:59:59 CLS Outpatient GILLES SUAREZ MD [facility] PREOP LEFT CARPAL TUNNEL SYND KAZ [id number] 01/13/2015 07:32:00 Document Registration [id number] 04/12/2011 12:10:00 Document Registration [id number] 04/21/2010 05:51:00 Document Registration [id number] 04/15/2010 13:01:00 Document Registration
[2019-06-22 15:37] LABS: BASOPHILS % (AUTO) 0 % (0-10); EOSINOPHILS # (AUTO) 0.1 10^3/uL (0.0-0.3); EOSINOPHILS % (AUTO) 2 % (0-10); HEMATOCRIT 44 % (40-54); HEMOGLOBIN 14.6 G/DL (13.3-17.7); LYMPHOCYTES # (AUTO) 2.4 X 10^3 (1.0-4.0); LYMPHOCYTES % (AUTO) 27 % (12-44); MEAN CORPUSCULAR HEMOGLOBIN 31 PG (25-34); MEAN CORPUSCULAR HGB CONC 34 G/DL (32-36); MEAN CORPUSCULAR VOLUME 92 FL (80-99); MEAN PLATELET VOLUME 10.1 FL (7.4-10.4); MONOCYTES # (AUTO) 0.9 X 10^3 (0.0-1.0); MONOCYTES % (AUTO) 10 % (0-12); NEUTROPHILS # (AUTO) 5.5 X 10^3 (1.8-7.8); NEUTROPHILS % (AUTO) 61 % (42-75); PLATELET COUNT 223 10^3/uL (130-400); RED CELL DISTRIBUTION WIDTH 13.3 % (10.0-14.5)
[2019-06-22 15:46] LABS: ALBUMIN 4.1 GM/DL (3.2-4.5); CHLORIDE 101 MMOL/L (98-107); SODIUM 139 MMOL/L (135-145)
[2019-06-22 15:47] LABS: CALCIUM 9.4 MG/DL (8.5-10.1)
[2019-06-22 15:49] LABS: GLUCOSE 106 MG/DL (70-105); TOTAL PROTEIN 7.1 GM/DL (6.4-8.2)
[2019-06-22 15:50] LABS: BILIRUBIN,TOTAL 0.5 MG/DL (0.1-1.0); CARBON DIOXIDE 27 MMOL/L (21-32)
--- NOTE | 2019-06-22 15:51 | Diagnostic Imaging Report ---
INDICATION: Head pain and fatigue. FINDINGS: The lungs are clear. No failure, effusion, or pneumothorax. IMPRESSION: No acute-appearing abnormality. Dictated by: Dictated on workstation # [id number]
[2019-06-22 15:52] LABS: ALKALINE PHOSPHATASE 51 U/L (40-136); CREATININE SERUM 1.05 MG/DL (0.60-1.30); GFR ESTIMATED > 60
[2019-06-22 15:53] LABS: BUN/CREATININE RATIO 11
[2019-06-22 15:55] LABS: ALANINE AMINOTRANSFERASE 20 U/L (0-55); MAGNESIUM 1.5 MG/DL (1.6-2.4)
--- NOTE | 2019-06-22 15:58 | ED General ---
General Chief Complaint: General Problems/Pain Stated Complaint: HEADACHE/DIFF WITH WORDS Nursing Triage Note: Pt amb to room #5 with vague c/o of "not feeling well." Pt reports intermittent headache et nausea that began throughout the night of 06/21/19. Pt reports intermittent episodes of confusion. During triage pt alert and mentating appropriately (A&OX4). Pt denies fever, chills, cough, or SOA. Nursing Sepsis Screen: No Definite Risk Source of Information: Patient, Old Records Exam Limitations: No Limitations History of Present Illness Date Seen by Provider: Jun 22, 2019 Time Seen by Provider: 15:20 Initial Comments This 84-year-old gentleman presents to the emergency room with complaints of generally feeling ill since yesterday evening. He has had headache (which he is not accustomed to) fatigue, decreased urine output, intermittent confusion and nausea. He denies any limb weakness, fever, chest pain, cough, shortness of breath, or other acute symptoms. He is notably hypertensive and reports that his Inderal dose was recently decreased. His local providers are Dr. Dempsey and Dr. Roberson. Allergies and Home Medications Allergies Coded Allergies: hydrocodone (Unverified Allergy, Mild, 03/22/07) amlodipine (Unverified Allergy, Unknown, 10/25/13) benazepril (Unverified Allergy, Unknown, 10/25/13) codeine (Verified Allergy, Unknown, 09/02/05) telmisartan (Unverified Allergy, Unknown, 10/25/13) Home Medications Amlodipine Besylate 5 Mg Tablet, 5 MG PO DAILY, (Reported) Aspirin 81 Mg Chew, 81 MG PO DAILY, (Reported) Metformin Hcl 500 Mg Tablet, 500 MG PO BID, (Reported) Methotrexate Sodium 2.5 Mg Tablet, 2.5 MG PO WEEKLY, (Reported) Pantoprazole Sodium 40 Mg Suspdr.pkt, 40 MG PO DAILY, (Reported) Propranolol Hcl 120 Mg Cap.sa.24h, 120 MG PO DAILY, (Reported) Simvastatin 10 Mg Tab, 10 MG PO DAILY, (Reported) Tramadol Hcl 50 Mg Tablet, 50 MG PO NEEDED, (Reported) [Tramadol Hcl] 50 MG TAB, 50 MG PO Q6H PRN for PAIN MAY TAKE ONE TABLET BY MOUTH EVERY 6 HRS NEEDED FOR PAIN. Prescribed by: PASCUAL PEREZ on 10/30/13 0917 Patient Home Medication List Home Medication List Reviewed: Yes Review of Systems Review of Systems Constitutional: see HPI EENTM: no symptoms reported Respiratory: no symptoms reported Cardiovascular: no symptoms reported Gastrointestinal: see HPI Genitourinary: no symptoms reported Musculoskeletal: no symptoms reported Skin: no symptoms reported Psychiatric/Neurological: See HPI Hematologic/Lymphatic: No Symptoms Reported Immunological/Allergic: no symptoms reported Past Bcvtvru-Pynbrg-Rqwlbo Hx Past Med/Social Hx: Reviewed Nursing Past Med/Soc Hx Patient Social History Alcohol Use: Denies Use Number of Drinks Today: 0 Recreational Drug Use: No Smoking Status: Former Smoker Type Used: Cigarettes 2nd Hand Smoke Exposure: No Recent Foreign Travel: No Contact w/Someone Who Travel: No Recent Infectious Disease Expo: No Recent Hopitalizations: Yes Immunizations Up To Date Date of Pneumonia Vaccine: July 02, 2009 Date of Influenza Vaccine: Dec 02, 2013 Past Medical History Surgeries: Yes (MENISCUS REPAIR, TURP, HERNIA X3, bilateral ENDARTERECTOMY,2005) Cardiac, CABG Respiratory: No Cardiac: Yes (CABG X3 VESSELS) Coronary Artery Disease, Peripheral Vascular (carotid stenosis status post bilateral endarterectomy) Neurological: No Reproductive Disorders: No Sexually Transmitted Disease: No Genitourinary: No Gastrointestinal: No Musculoskeletal: No Endocrine: No HEENT: Yes Hearing Impairment: Hard of Hearing, Hearing Aide Right Psychosocial: No Blood Disorders: No Physical Exam Vital Signs Vital Signs - First Documented 06/22/19 15:06 Temp 37.1 Pulse 67 Resp 18 B/P (MAP) 162/134 (143) Pulse Ox 97 O2 Delivery Room Air Capillary Refill : Less Than 3 Seconds Height, Weight, BMI Height: 6'0.00" Weight: 230lbs. 0.0oz. [id number]; 31.00 BMI Method: General Appearance: No Apparent Distress, WD/WN HEENT: PERRL/EOMI, TMs Normal, Normal ENT Inspection, Other (oropharynx dry) Neck: Normal Inspection Respiratory: Lungs Clear, Normal Breath Sounds, No Accessory Muscle Use, No Respiratory Distress Cardiovascular: Regular Rate, Rhythm, No Edema, No Murmur Gastrointestinal: Non Tender, Soft Extremity: Normal Inspection, Pedal Edema (mild) Neurologic/Psychiatric: Alert, Oriented x3, No Motor/Sensory Deficits, Normal Mood/Affect, brass wind instruments tube bender II-XII Norm as Tested Skin: Normal Color, Warm/Dry Progress/Results/Core Measures Suspected Sepsis Recent Fever Within 48 Hours: No Infection Criteria Present: None New/Unexplained Altered Menta: No Sepsis Screen: No Definite Risk SIRS Temperature: Pulse: 67 Respiratory Rate: 18 Laboratory Tests 06/22/19 15:25: White Blood Count 9.0 Blood Pressure 162 /134 Mean: 143 Laboratory Tests 06/22/19 15:25: Creatinine 1.05, Platelet Count 223, Total Bilirubin 0.5 Results/Orders Lab Results Laboratory Tests Test 06/22/19 15:25 06/22/19 15:50 Range/Units White Blood Count 9.0 4.3-11.0 10^3/uL Red Blood Count 4.72 4.35-5.85 10^6/uL Hemoglobin 14.6 13.3-17.7 G/DL Hematocrit 44 40-54 % Mean Corpuscular Volume 92 80-99 FL Mean Corpuscular Hemoglobin 31 25-34 PG Mean Corpuscular Hemoglobin Concent 34 32-36 G/DL Red Cell Distribution Width 13.3 10.0-14.5 % Platelet Count 223 130-400 10^3/uL Mean Platelet Volume 10.1 7.4-10.4 FL Neutrophils (%) (Auto) 61 42-75 % Lymphocytes (%) (Auto) 27 12-44 % Monocytes (%) (Auto) 10 0-12 % Eosinophils (%) (Auto) 2 0-10 % Basophils (%) (Auto) 0 0-10 % Neutrophils # (Auto) 5.5 1.8-7.8 X 10^3 Lymphocytes # (Auto) 2.4 1.0-4.0 X 10^3 Monocytes # (Auto) 0.9 0.0-1.0 X 10^3 Eosinophils # (Auto) 0.1 0.0-0.3 10^3/uL Basophils # (Auto) 0.0 0.0-0.1 10^3/uL Sodium Level 139 135-145 MMOL/L Potassium Level 4.0 3.6-5.0 MMOL/L Chloride Level 101 98-107 MMOL/L Carbon Dioxide Level 27 21-32 MMOL/L Anion Gap 11 5-14 MMOL/L Blood Urea Nitrogen 12 7-18 MG/DL Creatinine 1.05 0.60-1.30 MG/DL Estimat Glomerular Filtration Rate > 60 BUN/Creatinine Ratio 11 Glucose Level 106 H 70-105 MG/DL Calcium Level 9.4 8.5-10.1 MG/DL Corrected Calcium 9.3 8.5-10.1 MG/DL Magnesium Level 1.5 L 1.6-2.4 MG/DL Total Bilirubin 0.5 0.1-1.0 MG/DL Aspartate Amino Transf (AST/SGOT) 18 5-34 U/L Alanine Aminotransferase (ALT/SGPT) 20 0-55 U/L Alkaline Phosphatase 51 40-136 U/L Troponin I < 0.028 <0.028 NG/ML C-Reactive Protein High Sensitivity 0.14 0.00-0.50 MG/DL Total Protein 7.1 6.4-8.2 GM/DL Albumin 4.1 3.2-4.5 GM/DL TSH [place] Testing 4.74 0.35-4.94 UIU/ML Urine Color YELLOW Urine Clarity CLEAR Urine pH 6.5 5-9 Urine Specific [place] 1.010 L 1.016-1.022 Urine Protein NEGATIVE NEGATIVE Urine Glucose (UA) NEGATIVE NEGATIVE Urine Ketones NEGATIVE NEGATIVE Urine Nitrite NEGATIVE NEGATIVE Urine Bilirubin NEGATIVE NEGATIVE Urine Urobilinogen 0.2 < = 1.0 MG/DL Urine Leukocyte Esterase NEGATIVE NEGATIVE Urine RBC (Auto) NEGATIVE NEGATIVE Urine RBC 0-2 /HPF Urine WBC NONE /HPF Urine Squamous Epithelial Cells RARE /HPF Urine Crystals NONE /LPF Urine Bacteria TRACE /HPF Urine Casts PRESENT /LPF Urine Hyaline Casts RARE /LPF Urine Mucus NEGATIVE /LPF Urine Culture Indicated NO My Orders Orders - ALVARADO ZUNIGA MD Cbc With Automated Diff (06/22/19 15:29) Comprehensive Metabolic Panel (06/22/19 15:29) Hs C Reactive Protein (06/22/19 15:29) Magnesium (06/22/19 15:29) Thyroid Analyzer (06/22/19 15:29) Troponin I (06/22/19 15:29) Ua Culture If Indicated (06/22/19 15:29) Ed Iv/Invasive Line Start (06/22/19 15:29) Chest 1 View, Ap/Pa Only (06/22/19 15:29) Ekg Tracing (06/22/19 15:45) Monitor-Rhythm Ecg Trace Only (06/22/19 15:45) Ct Head Wo (06/22/19 15:47) Ns Iv 500 Ml (Sodium Chloride 0.9%) (06/22/19 16:37) Ondansetron Injection (Zofran Injectio (06/22/19 16:45) Ketorolac Injection (Toradol Injection) (06/22/19 16:45) Magnesium Oxide Tablet (Mag Ox Tablet) (06/22/19 17:45) Medications Given in ED Current Medications Medications Dose Ordered Sig/Les Route Start Time Stop Time Status Last Admin Dose Admin Ketorolac Tromethamine 10 mg ONCE ONCE IVP 06/22/19 16:45 06/22/19 16:46 DC 06/22/19 16:43 10 MG Ondansetron HCl 4 mg ONCE ONCE IVP 06/22/19 16:45 06/22/19 16:46 DC 06/22/19 16:43 4 MG Sodium Chloride 500 ml @ 0 mls/hr Q0M ONCE IV 06/22/19 16:37 06/22/19 16:39 DC 06/22/19 16:44 0 MLS/HR Vital Signs/I&O 06/22/19 15:06 Temp 37.1 Pulse 67 Resp 18 B/P (MAP) 162/134 (143) Pulse Ox 97 O2 Delivery Room Air Capillary Refill : Less Than 3 Seconds 2 Blood Pressure Mean: 143 Progress Note : Time: 17:34 Progress Note Workup was unremarkable. CT was obtained because of the unusual headache and hypertension. Hemorrhage needed to be ruled out. Patient's CT demonstrated no evidence of bleeding. Headache was treated with Toradol 10 mg IV, a 500 mL normal saline bolus, and Zofran 4 mg. Headache did improve and blood pressure likewise improved. Blood pressure prior to discharge was 158/96. I'm comfortable with discharging him with this blood pressure. He was invited to return or call back if he had any further questions or concerns. Otherwise, he is to see his primary care provider on Monday. Patient's magnesium was also slightly low and he was given an oral dose of magnesium oxide prior to departure. Diagnostic Imaging Diagonstic Imaging: CT Plain Films/CT/US/NM/MRI: head Comments CT head viewed by me and report reviewed. See report below: NAME: ARIANNE BAUER Isabel [facility] REC#: [id number] PT STATUS: REG ER : 1935 PHYSICIAN: ALVARADO ZUNIGA MD ADMIT DATE: 06/22/19/ER Draft Date of Exam:06/22/19 CT HEAD WO PROCEDURE: CT head without contrast. TECHNIQUE: Multiple contiguous axial images were obtained through the brain without the use of intravenous contrast. Auto Exposure Controls were utilized during the CT exam to meet ALARA standards for radiation dose reduction. INDICATION: Head pain, fatigue. COMPARISON: None. FINDINGS: There is cerebral cortical atrophy without overt hydrocephalus. Ventricular calibers are congruent with the pattern of sulcation. No evidence for focal or generalized cerebral edema. There is no hemorrhage and no acute extra-axial fluid collection. No mass or mass effect. No evidence for an elevation of the intracerebral pressures. The orbits, sinuses and calvarium appear nonacute. IMPRESSION: Chronic appearing atrophy and parenchymal volume loss with no hemorrhage, edema or acute appearing abnormality. Dictated on workstation # [id number] Dict: 06/22/19 1621 Trans: 06/22/[address] [facility] [id number] Interpreted by: MARYANNE FUNG Diagonstic Imaging: Xray Plain Films/CT/US/NM/MRI: chest Comments NAME: ARIANNE BAUER [facility] REC#: [id number] PT STATUS: REG ER : 1935 PHYSICIAN: ALVARADO ZUNIGA MD ADMIT DATE: 06/22/19/ER Draft Date of Exam:06/22/19 CHEST 1 VIEW, AP/PA ONLY INDICATION: Head pain and fatigue. FINDINGS: The lungs are clear. No failure, effusion, or pneumothorax. IMPRESSION: No acute-appearing abnormality. Dictated on workstation # [id number] Dict: 06/22/19 1545 Trans: 06/22/19 1551 [id number] Interpreted by: MARYANNE FUNG Departure Impression Primary Impression: Acute headache Qualified Codes: R51 - Headache Additional Impression: Episode of hypertension Disposition: 01 HOME, SELF-CARE Condition: Improved Departure-Patient Inst. Decision time for Depature: 17:36 Referrals: JOSH ROBERSON MD (PCP/Family) Primary Care Physician Patient Instructions: Headache, Adult, High Blood Pressure (DC) Add. Discharge Instructions: Drink plenty of water and take your medications as previously directed. Eat a low-salt diet. Follow-up with your primary care provider on Monday to check your blood pressure again and review your medications. Return to care or call the emergency room if you have any further problems or concerns over the weekend. For temporary relief of headache you may take ibuprofen up to 400 mg 3 times a day and/or Tylenol (acetaminophen) up to 1000 mg every 6 hours as needed. All discharge instructions reviewed with patient and/or family. Voiced und erstanding. Copy Copies To 1: JOSH ROBERSON MD Copies To 2: LISANDRO DEMPSEY MD, JOSHUA T MD Jun 22, 2019 15:58
[2019-06-22 16:07] LABS: BILIRUBIN,URINE NEGATIVE (NEGATIVE); CLARITY,URINE CLEAR; COLOR,URINE YELLOW; GLUCOSE, URINE (UA) NEGATIVE (NEGATIVE); KETONES,URINE NEGATIVE (NEGATIVE); LEUKOCYTE ESTERASE ,URINE NEGATIVE (NEGATIVE); NITRITE,URINE NEGATIVE (NEGATIVE); PH,URINE 6.5 (5-9); PROTEIN,URINE NEGATIVE (NEGATIVE)
[2019-06-22 16:16] LABS: TSH (THYROID ANALYZER) 4.74 UIU/ML (0.35-4.94)
[2019-06-22 16:19] LABS: BACTERIA,URINE TRACE /HPF; HYALINE CASTS, URINE RARE /LPF; RBC,URINE 0-2 /HPF; SQUAMOUS EPITHELIAL CELL,UR RARE /HPF
--- NOTE | 2019-06-22 16:29 | Diagnostic Imaging Report ---
PROCEDURE: CT head without contrast. TECHNIQUE: Multiple contiguous axial images were obtained through the brain without the use of intravenous contrast. Auto Exposure Controls were utilized during the CT exam to meet ALARA standards for radiation dose reduction. INDICATION: Head pain, fatigue. COMPARISON: None. FINDINGS: There is cerebral cortical atrophy without overt hydrocephalus. Ventricular calibers are congruent with the pattern of sulcation. No evidence for focal or generalized cerebral edema. There is no hemorrhage and no acute extra-axial fluid collection. No mass or mass effect. No evidence for an elevation of the intracerebral pressures. The orbits, sinuses and calvarium appear nonacute. IMPRESSION: Chronic appearing atrophy and parenchymal volume loss with no hemorrhage, edema or acute appearing abnormality. Dictated by: Dictated on workstation # [id number]
[2019-06-22] MEDS ORDERED: NS IV 500 ML 500 ML IV ONE (16:37)
[2019-06-22] MEDS ORDERED: KETOROLAC 30 MG/ML VIAL IVP ONE (16:45)
[2019-06-22] MEDS ORDERED: ONDANSETRON 4 MG/2 ML (SDV) Z0FRAN IVP ONE (16:45)
[2019-06-22] MEDS ORDERED: MAGNESIUM OXIDE (MAG-OX)400 MG TAB PO ONE (17:45)
[2019-06-22 17:50] VITALS: BP 159/97
== END 2019-06-22 17:51 | disposition home or self-care (01) ==
LOC: EDUNIT# 15:03 → ER 15:05
DX: R51 Headache (principal); I10 Essential (primary) hypertension; I25.10 Atherosclerotic heart disease of native coronary artery without angina pectoris; I73.9 Peripheral vascular disease, unspecified; Z95.1 Presence of aortocoronary bypass graft; Z88.5 Allergy status to narcotic agent; Z88.8 Allergy status to other drugs, medicaments and biological substances; Z79.82 Long term (current) use of aspirin; Z79.84 Long term (current) use of oral hypoglycemic drugs; Z87.891 Personal history of nicotine dependence
CPT/HCPCS: 36415; 70450; 71045; 80053; 81000; 83735; 84443; 84484; 85025; 86141; 93005; 93041

== ENCOUNTER → 2020-04-30 | Outpatient (CLI) | payer MEDICARE, BC | LOC: CARD 12:44 | PROVIDERS: ATTEND Physician Assistant | DX: I08.0 Rheumatic disorders of both mitral and aortic valves (principal); I11.9 Hypertensive heart disease without heart failure | CPT/HCPCS: 93306 ==

== ENCOUNTER 2020-08-21 11:30 | Outpatient (RCR) | payer MEDICARE, BC | END 2020-11-19 | disposition home or self-care (01) | LOC: CARD 11:30 | PROVIDERS: ATTEND Internal Medicine Cardiovascular Disease | DX: I45.10 Unspecified right bundle-branch block (principal); I44.0 Atrioventricular block, first degree | CPT/HCPCS: 93225; 93226 ==

== ENCOUNTER 2020-12-24 14:54 | Outpatient (RCR) | payer MEDICARE, BC ==
[2021-01-05] MEDS ORDERED: CLN.1T PO (11:31)
[2021-01-05] MEDS ORDERED: ASPI-1238 PO (11:31)
[2021-01-05] MEDS ORDERED: PROP80CA4 PO (11:31)
[2021-01-05] MEDS ORDERED: METF-865 PO (11:31)
[2021-01-05] MEDS ORDERED: LOSA50TA63 PO (11:31)
[2021-01-05] MEDS ORDERED: PEDI1TAB60 PO (11:31)
[2021-01-05] MEDS ORDERED: HYDR12.56 PO (11:31)
[2021-01-05] MEDS ORDERED: UBID100C44 PO (11:31)
[2021-01-05] MEDS ORDERED: CYAN500T8 PO (11:31)
[2021-01-05] MEDS ORDERED: ATOR10TA66 PO (11:31)
[2021-01-10] MEDS ORDERED: CLON1PAT34 TD (08:35)
[2021-01-10] MEDS ORDERED: HYDR-3923 PO (08:35)
[2021-01-11] MEDS ORDERED: PROP60CA PO (09:30)
[2021-01-11] MEDS ORDERED: LOSA100T57 PO (09:30)
[2021-01-11] MEDS ORDERED: HYDR-3922 PO (10:26)
== END 2021-01-26 14:18 | disposition home or self-care (01) ==
PROVIDERS: ATTEND Family Medicine
DX: R53.1 Weakness (principal); R26.9 Unspecified abnormalities of gait and mobility

== ENCOUNTER 2020-12-26 16:10 | Emergency (ER) | payer MEDICARE, BC ==
[~2020-12-26] VITALS: Ht 183 cm; Wt 100.0 kg
[2020-12-26 17:10] VITALS: BP 180/86
--- NOTE | 2020-12-26 17:10 | ED Neurological Problem ---
General Chief Complaint: Neurological Problems Stated Complaint: CONFUSED/LIGHTHEADED Nursing Triage Note: PT ARRIVES TO ER WITH WITH C/O FEELING FUNNY IN HIS HEAD AND NOT BEING ABLE TO GET HIS WORDS OUT. LKW AROUND 1100 THIS MORNING. [facility] WENT TO [facility] AND THEN WHEN HE GOT BACK HOME IS WHEN HE FELT OFF. HE TOOK A NAP AROUND 1200 UNTIL 1300 Source: patient Exam Limitations: no limitations History of Present Illness Date Seen by Provider: Dec 26, 2020 Time Seen by Provider: 17:00 Initial Comments This is an 85-year-old male who presented to the ER via private vehicle with his spouse for concerns of slurred speech that started around 1000 this morning. States that he was sitting at home when all of a sudden he was trying to talk and could not "get the words out". states that his speech almost sounded a little garbled. He does have a history of TIA's. States his daughter recommended he come to the emergency department for evaluation due to his symptoms. States that his symptoms are resolved and they only last approximately 30 minutes. No fever, chills, cough, shortness of breath, chest pain, nausea, vomiting, abdominal pain. Denies any upper or lower extremity weakness at this time. No dizziness or vertigo, no vision changes. Allergies and Home Medications Allergies Coded Allergies: hydrocodone (Unverified Allergy, Mild, 03/22/07) amlodipine (Unverified Allergy, Unknown, 10/25/13) benazepril (Unverified Allergy, Unknown, 10/25/13) codeine (Verified Allergy, Unknown, 09/02/05) telmisartan (Unverified Allergy, Unknown, 10/25/13) Patient Home Medication List Home Medication List Reviewed: Yes Amlodipine Besylate (Norvasc) 5 Mg Tablet, 5 MG PO DAILY, (Reported) Entered as Reported by: KANIKA RG on 05/21/09849 Aspirin (Aspirin 81 Mg Chew Tab) 81 Mg Chew, 81 MG PO DAILY, (Reported) Entered as Reported by: KANIKA RG on 05/21/09850 Metformin Hcl (Metformin 500 Mg) 500 Mg Tablet, 500 MG PO BID, (Reported) Entered as Reported by: KANIKA RG on 05/21/09850 Methotrexate Sodium (Methotrexate) 2.5 Mg Tablet, 2.5 MG PO WEEKLY, (Reported) Entered as Reported by: HOOD WEINSTEIN on 07/02/14757 Pantoprazole Sodium (Protonix SUSP.) 40 Mg Suspdr.pkt, 40 MG PO DAILY, (Reported) Entered as Reported by: HOOD BENAVIDESELZBIETA on 07/02/14757 Propranolol Hcl (Inderal La) 120 Mg Cap.sa.24h, 120 MG PO DAILY, (Reported) Entered as Reported by: KANIKA RG on 05/21/09850 Simvastatin (Zocor) 10 Mg Tab, 10 MG PO DAILY, (Reported) Entered as Reported by: KANIKA RG on 05/21/09850 Tramadol Hcl (Tramadol Hcl) 50 Mg Tablet, 50 MG PO NEEDED, (Reported) Entered as Reported by: HOOD BENAVIDESELZBIETA on 07/02/14757 [Tramadol Hcl] 50 MG TAB, 50 MG PO Q6H PRN for PAIN Prescribed by: PASCUAL PEREZ on 10/30/13 09 Review of Systems Review of Systems Constitutional: see HPI Eyes: No Symptoms Reported Ears, Nose, Mouth, Throat: no symptoms reported Respiratory: no symptoms reported Cardiovascular: no symptoms reported Gastrointestinal: no symptoms reported Genitourinary: no symptoms reported Musculoskeletal: no symptoms reported Skin: no symptoms reported Psychiatric/Neurological: No Symptoms Reported Endocrine: No Symptoms Reported Hematologic/Lymphatic: No Symptoms Reported Past Veriklp-Bzpkhn-Lnnkyg Hx Patient Social History Tobacco Use?: No Smoking Status: Former Smoker Substance use?: No Alcohol Use?: No Pt feels they are or have been: No Immunizations Up To Date Influenza Vaccine Up-to-Date: Yes; Up-to-Date First/Initial COVID19 Vaccinat: 02/2020 Second COVID19 Vaccination Jose: 03/2020 Past Medical History Surgeries: Yes (MENISCUS REPAIR, TURP, HERNIA X3, bilateral ENDARTERECTOMY,2005) Cardiac, CABG Respiratory: No Cardiac: Yes (CABG X3 VESSELS) Coronary Artery Disease, Peripheral Vascular Neurological: No Reproductive Disorders: No Sexually Transmitted Disease: No Genitourinary: No Gastrointestinal: No Musculoskeletal: No Endocrine: No HEENT: Yes Hearing Impairment: Hard of Hearing, Hearing Aide Right Psychosocial: No Blood Disorders: No Physical Exam Vital Signs Capillary Refill : Less Than 3 Seconds Height, Weight, BMI Height: 6'0.00" Weight: 230lbs. 0.0oz. [id number]; 29.00 BMI Method: General Appearance: WD/WN, no apparent distress HEENT: PERRL/EOMI, normal ENT inspection, TMs normal, pharynx normal Neck: non-tender, full range of motion, supple, normal inspection Respiratory: lungs clear, normal breath sounds, no respiratory distress, no accessory muscle use Cardiovascular: normal peripheral pulses, regular rate, rhythm, no edema, no gallop Peripheral Pulses: 2+ Carotid (R), 2+ Carotid (L), 2+ Radial Pulses (R), 2+ R adial Pulses (L) Gastrointestinal: normal bowel sounds, non tender, soft Back: normal inspection, no vertebral tenderness Extremities: normal range of motion, non-tender, normal inspection, no pedal edema, normal capillary refill Neurologic/Psychiatric: no motor/sensory deficits, alert, normal mood/affect, oriented x 3 Crainal Nerves: normal hearing, normal speech, PERRL; No facial asymmetry, No facial droop Coordination/Gait: normal finger to nose, normal gait Motor/Sensory: no motor deficit, no sensory deficit, no pronator drift Skin: normal color, warm/dry Stroke Onset of Symptoms Date of Onset of Symptoms: Dec 26, 2020 Time of Symptom Onset: 10:00 Onset of Symptoms: Yes NIH Stroke Scale Assessment Select: Initial Level of Consciousness: 0=Alert (0), Level of Consciousness- Questions: 0=Answers both month/age (0), LOC Commands: 0=Performs both tasks (0), Gaze: Normal (0), Visual Estrada: 0=No visual loss (0), Facial Movement (Facial Paresis): 0=Normal symmetrical mnt (0), Motor Function-Arms Right: 0=No drift (0), Motor Function-Arms Left: 0=No drift (0), Motor Function-Legs Right: 0=No drift (0), Motor Function-Legs Left: 0=No drift (0), Limb Ataxia: 0=Absent (0), Sensory: 0=Normal:no loss (0), Best Language: 0=No aphasia (0), Dysarthria: 0=Normal (0), Extinction & Inattention: 0=No abnormality (0), Total: 0 Progress/Results/Core Measures Results/Orders Lab Results Laboratory Tests Test 12/26/20 16:45 12/26/20 16:50 12/26/20 17:09 12/26/20 17:49 Range/Units White Blood Count 8.8 4.3-11.0 10^3/uL Red Blood Count 4.37 4.30-5.52 10^6/uL Hemoglobin 13.6 13.3-17.7 g/dL Hematocrit 41 40-54 % Mean Corpuscular Volume 94 80-99 fL Mean Corpuscular Hemoglobin 31 25-34 pg Mean Corpuscular Hemoglobin Concent 33 32-36 g/dL Red Cell Distribution Width 13.2 10.0-14.5 % Platelet Count 219 130-400 10^3/uL Mean Platelet Volume 10.4 9.0-12.2 fL Immature Granulocyte % (Auto) 0 % Neutrophils (%) (Auto) 58 42-75 % Lymphocytes (%) (Auto) 28 12-44 % Monocytes (%) (Auto) 10 0-12 % Eosinophils (%) (Auto) 3 0-10 % Basophils (%) (Auto) 1 0-10 % Neutrophils # (Auto) 5.1 1.8-7.8 10^3/uL Lymphocytes # (Auto) 2.5 1.0-4.0 10^3/uL Monocytes # (Auto) 0.9 0.0-1.0 10^3/uL Eosinophils # (Auto) 0.2 0.0-0.3 10^3/uL Basophils # (Auto) 0.1 0.0-0.1 10^3/uL Immature Granulocyte # (Auto) 0.0 0.0-0.1 10^3/uL Prothrombin Time 14.8 H 12.2-14.7 SEC INR Comment 1.1 0.8-1.4 Activated Partial Thromboplast Time 29 24-35 SEC D-Dimer 0.39 0.00-0.49 UG/ML Sodium Level 137 135-145 MMOL/L Potassium Level 3.6 3.6-5.0 MMOL/L Chloride Level 97 L 98-107 MMOL/L Carbon Dioxide Level 27 21-32 MMOL/L Anion Gap 13 5-14 MMOL/L Blood Urea Nitrogen 11 7-18 MG/DL Creatinine 0.89 0.60-1.30 MG/DL Estimat Glomerular Filtration Rate 81 BUN/Creatinine Ratio 12 Glucose Level 134 H 70-105 MG/DL Calcium Level 8.9 8.5-10.1 MG/DL Corrected Calcium 9.1 8.5-10.1 MG/DL Total Bilirubin 0.5 0.1-1.0 MG/DL Aspartate Amino Transf (AST/SGOT) 21 5-34 U/L Alanine Aminotransferase (ALT/SGPT) 17 0-55 U/L Alkaline Phosphatase 51 40-136 U/L Troponin I < 0.028 <0.028 NG/ML Total Protein 6.6 6.4-8.2 GM/DL Albumin 3.8 3.2-4.5 GM/DL Glucometer 120 H 128 H 70-110 MG/DL Urine Color YELLOW Urine Clarity CLEAR Urine pH 7.5 5-9 Urine Specific Hamilton 1.015 L 1.016-1.022 Urine Protein NEGATIVE NEGATIVE Urine Glucose (UA) NEGATIVE NEGATIVE Urine Ketones NEGATIVE NEGATIVE Urine Nitrite NEGATIVE NEGATIVE Urine Bilirubin NEGATIVE NEGATIVE Urine Urobilinogen 0.2 < = 1.0 MG/DL Urine Leukocyte Esterase NEGATIVE NEGATIVE Urine RBC (Auto) NEGATIVE NEGATIVE Urine RBC 0-2 /HPF Urine WBC NONE /HPF Urine Squamous Epithelial Cells NONE /HPF Urine Renal Epithelial Cells RARE /HPF Urine Crystals NONE /LPF Urine Bacteria NEGATIVE /HPF Urine Casts NONE /LPF Urine Mucus NEGATIVE /LPF Urine Culture Indicated NO My Orders Orders - ABHILASH ARROYO [employer] Cbc With Automated Diff (12/26/20 17:02) Protime With Inr (12/26/20 17:02) Partial Thromboplastin Time (12/26/20 17:02) Comprehensive Metabolic Panel (12/26/20 17:02) Fibrin Degradation Products (12/26/20 17:02) Troponin I (12/26/20 17:02) Ua Culture If Indicated (12/26/20 17:02) Chest 1 View, Ap/Pa Only (12/26/20 17:02) Catheter(Urinary) Insert & Ass 03,15 (12/26/20 17:02) Ekg Tracing (12/26/20 17:02) Accucheck Stat ONCE (12/26/20 17:02) Ed Iv/Invasive Line Start (12/26/20 17:02) Vital Signs Stroke Patient Q15M (12/26/20 17:02) Ct Head Wo-R/O Stroke (12/26/20 17:02) O2 (12/26/20 17:02) Intake & Output 06,14,22 (12/26/20 17:02) Monitor-Rhythm Ecg Trace Only (12/26/20 17:02) Dysphagia Screening Tool (12/26/20 17:02) Vital Signs Stroke Patient Q15M (12/26/20 17:52) Dysphagia Screening Tool (12/26/20 17:52) Ct Angio Head/Neck (12/26/20 17:52) Iohexol Injection (Omnipaque 350 Mg/Ml 1 (12/26/20 18:00) Received Contrast (Hold Metformin- Contr (12/26/20 18:00) Ns (Ivpb) (Sodium Chloride 0.9% Ivpb Bag (12/26/20 18:00) Aspirin Enteric Coated Tablet (Ecotrin T (12/26/20 19:15) Aspirin Tablet (Aspirin Tablet) (12/26/20 19:07) Medications Given in ED Vital Signs/I&O Blood Pressure Mean: 117 Progress Progress Note : Progress Note Patient examined and in no acute distress. He has no focal or gross neurological deficits at this time. His initial NIH score is 0. Will initiate stroke work-up. Labs and imaging are unremarkable. Case reviewed with Dr. Roberson, will have patient restart his propranolol 60mg twice daily as he was recently decreased from 120mg daily to 60mg daily and he is still having significant hypertension today. He will call office on Monday to schedule close follow-up. Additionally will probably have him follow-up with cardiology so he can have ultrasound of carotid arteries. Plan of care reviewed with patient and spouse and they are both agreeable with plan. No concerns voiced at this time. Initial ECG Impression Date: Dec 26, 2020 Initial ECG Impression Time: 16:56 Initial ECG Rate: 68 Initial ECG Rhythm: Normal Sinus Initial ECG Intervals RBBB Diagnostic Imaging Comments [facility], [place] NAME: ARIANNE BAUER Isabel [facility] REC#: [id number] PT STATUS: DEP ER : 1935 PHYSICIAN: ABHILASH ARROYO HELPER [employer] ADMIT DATE: 12/26/20/ER Signed Date of Exam:12/26/20 CHEST 1 VIEW, AP/PA ONLY EXAMINATION: Chest 1 view. HISTORY: Stroke. COMPARISON: 06/22/2019. FINDINGS: The lungs are clear without edema or pneumonia. No pleural effusion or pneumothorax. Heart size is normal. Median sternotomy wires are aligned. There are coronary artery bypass graft markers. IMPRESSION: Clear lungs. Dictated by: Dictated on workstation # [id number] Dict: 12/26/201729 Trans: 12/26/202102 [facility] [id number] Interpreted by: DRAGAN DIAL MD Electronically signed by: DRAGAN DIAL MD 12/26/202102 Comments [facility] [place], [place] NAME: ARIANNE BAUER [facility] REC#: [id number] PT STATUS: DEP ER : 1935 PHYSICIAN: ABHILASH ARROYO APRN ADMIT DATE: 12/26/20/ER Signed Date of Exam:12/26/20 CT HEAD WO-R/O STROKE EXAMINATION: CT head without contrast. TECHNIQUE: Multiple contiguous axial images were obtained through the brain without the use of intravenous contrast. All CT scans use one or more of the following dose optimizing techniques: automated exposure control, MA and/or KvP adjustment based on patient size and exam type or iterative reconstruction. HISTORY: Neurologic deficit. COMPARISON: None available. FINDINGS: The reis-white matter differentiation is normal. No mass effect or midline shift. The ventricles are normal in size and configuration. Basilar cisterns are patent. There are no intra-axial or extra-axial fluid collections. There is no intracranial hemorrhage. The orbits are normal. Paranasal sinuses are normal. Mastoid air cells are clear. No soft tissue abnormality is seen. No osseus lesions or fractures are seen. IMPRESSION: No acute intracranial abnormality. Dictated by: Dictated on workstation # [id number] Dict: 12/26/201727 Trans: 12/26/202103 [facility] [id number] Interpreted by: DRAGAN DIAL MD Electronically signed by: DRAGAN DIAL MD 12/26/202103 Comments [facility] [place] [place] NAME: ARIANNE BAUER R [facility] REC#: [id number] PT STATUS: DEP ER : 1935 PHYSICIAN: ABHILASH ARROYO APRN ADMIT DATE: 12/26/20/ER Signed Date of Exam:12/26/20 CT ANGIO HEAD/NECK EXAMINATION: CT angiography head and neck with and without contrast. TECHNIQUE: After intravenous administration of contrast, thin section axial CT angiography of the head and neck was performed. Source data was reformatted into 3D MIP projections. All CT scans use one or more of the following dose optimizing techniques: automated exposure control, MA and/or KvP adjustment based on a patient size and exam type, or iterative reconstruction. Any measurements of internal carotid artery stenosis are provided according to NASCET criteria. HISTORY: Funny feeling in the head. COMPARISON: None available. FINDINGS: The carotid arteries are normal without stenosis. Vertebral arteries are normal without stenosis. Intracranial internal carotid arteries are normal. The middle cerebral arteries are normal. The posterior cerebral arteries are normal. The anterior cerebral arteries are normal. There is no large vessel occlusion. No aneurysm or vascular malformation is seen. The reis-white matter differentiation is normal. No mass effect or midline shift. The ventricles are normal in size and configuration. Basilar cisterns are patent. There are no intra-axial or extra-axial fluid collections. There is no intracranial hemorrhage. The orbits are normal. Paranasal sinuses are normal. Mastoid air cells are clear. No soft tissue abnormality is seen. No osseus lesions or fractures are seen. No lymphadenopathy is seen in the neck. The muscles of the neck are normal. Fascial planes are preserved and the deep spaces of the neck are normal. Limited views of the superior thorax are unremarkable. No osseous lesions or fractures are seen. IMPRESSION: Normal vasculature in the head and neck without large vessel occlusion. Dictated by: Dictated on workstation # [id number] Dict: 12/26/201820 Trans: 12/26/202102 [facility] [id number] Interpreted by: DRAGAN DIAL MD Electronically signed by: DRAGAN DIAL MD 12/26/202102 Departure Impression Primary Impression: TIA (transient ischemic attack) Disposition: 01 HOME, SELF-CARE Condition: Improved Departure-Patient Inst. Decision time for Depature: 19:05 Referrals: JOSH ROBERSON MD (PCP/Family) Primary Care Physician Patient Instructions: Transient Ischemic Attack (DC) Add. Discharge Instructions: Plan: 1. Follow up with Dr. Dempsey and Dr. Roberson on Monday. Will need to get scheduled for Echo and Carotid doppler. 2. Take your Inderal 80mg in the morning and at bedtime. Please keep track of your blood pressure and heart rate. 3. Return to ER if you develop and new, concerning, or worsening symptoms. All discharge instructions reviewed with patient and/or family. Voiced understanding. Copy Copies To 1: JOSH ROBERSON MD, STORMY D HELPER [employer] Dec 26, 2020 17:10
[2020-12-26 17:12] LABS: BASOPHILS # (AUTO) 0.1 10^3/uL (0.0-0.1); BASOPHILS % (AUTO) 1 % (0-10); EOSINOPHILS # (AUTO) 0.2 10^3/uL (0.0-0.3); EOSINOPHILS % (AUTO) 3 % (0-10); HEMATOCRIT 41 % (40-54); HEMOGLOBIN 13.6 g/dL (13.3-17.7); LYMPHOCYTES # (AUTO) 2.5 10^3/uL (1.0-4.0); LYMPHOCYTES % (AUTO) 28 % (12-44); MEAN CORPUSCULAR HEMOGLOBIN 31 pg (25-34); MEAN CORPUSCULAR HGB CONC 33 g/dL (32-36); MEAN CORPUSCULAR VOLUME 94 fL (80-99); MEAN PLATELET VOLUME 10.4 fL (9.0-12.2); MONOCYTES # (AUTO) 0.9 10^3/uL (0.0-1.0); MONOCYTES % (AUTO) 10 % (0-12); NEUTROPHILS # (AUTO) 5.1 10^3/uL (1.8-7.8); NEUTROPHILS % (AUTO) 58 % (42-75); PLATELET COUNT 219 10^3/uL (130-400); WHITE BLOOD COUNT 8.8 10^3/uL (4.3-11.0)
[2020-12-26 17:13] LABS: ALBUMIN 3.8 GM/DL (3.2-4.5); CHLORIDE 97 MMOL/L (98-107); POTASSIUM 3.6 MMOL/L (3.6-5.0); SODIUM 137 MMOL/L (135-145)
[2020-12-26 17:14] LABS: CALCIUM 8.9 MG/DL (8.5-10.1)
[2020-12-26 17:15] LABS: GLUCOSE 134 MG/DL (70-105); TOTAL PROTEIN 6.6 GM/DL (6.4-8.2)
[2020-12-26 17:16] LABS: CARBON DIOXIDE 27 MMOL/L (21-32)
[2020-12-26 17:17] LABS: BILIRUBIN,TOTAL 0.5 MG/DL (0.1-1.0)
[2020-12-26 17:18] LABS: FIBRIN DEGRADATION PRODUCTS 0.39 UG/ML (0.00-0.49); INR 1.1 (0.8-1.4); PROTHROMBIN TIME PATIENT 14.8 SEC (12.2-14.7)
[2020-12-26 17:19] LABS: ALKALINE PHOSPHATASE 51 U/L (40-136); CREATININE SERUM 0.89 MG/DL (0.60-1.30); GFR ESTIMATED 81
[2020-12-26 17:20] LABS: BUN/CREATININE RATIO 12
[2020-12-26 17:22] LABS: ALANINE AMINOTRANSFERASE 17 U/L (0-55)
--- NOTE | 2020-12-26 17:32 | Diagnostic Imaging Report ---
EXAMINATION: Chest 1 view. HISTORY: Stroke. COMPARISON: 06/22/2019. FINDINGS: The lungs are clear without edema or pneumonia. No pleural effusion or pneumothorax. Heart size is normal. Median sternotomy wires are aligned. There are coronary artery bypass graft markers. IMPRESSION: Clear lungs. Dictated by: Dictated on workstation # [id number]
--- NOTE | 2020-12-26 17:32 | Diagnostic Imaging Report ---
EXAMINATION: CT head without contrast. TECHNIQUE: Multiple contiguous axial images were obtained through the brain without the use of intravenous contrast. All CT scans use one or more of the following dose optimizing techniques: automated exposure control, MA and/or KvP adjustment based on patient size and exam type or iterative reconstruction. HISTORY: Neurologic deficit. COMPARISON: None available. FINDINGS: The reis-white matter differentiation is normal. No mass effect or midline shift. The ventricles are normal in size and configuration. Basilar cisterns are patent. There are no intra-axial or extra-axial fluid collections. There is no intracranial hemorrhage. The orbits are normal. Paranasal sinuses are normal. Mastoid air cells are clear. No soft tissue abnormality is seen. No osseus lesions or fractures are seen. IMPRESSION: No acute intracranial abnormality. Dictated by: Dictated on workstation # [id number]
[2020-12-26 17:56] LABS: BILIRUBIN,URINE NEGATIVE (NEGATIVE); CLARITY,URINE CLEAR; COLOR,URINE YELLOW; GLUCOSE, URINE (UA) NEGATIVE (NEGATIVE); KETONES,URINE NEGATIVE (NEGATIVE); LEUKOCYTE ESTERASE ,URINE NEGATIVE (NEGATIVE); NITRITE,URINE NEGATIVE (NEGATIVE); PH,URINE 7.5 (5-9); PROTEIN,URINE NEGATIVE (NEGATIVE)
[2020-12-26] MEDS ORDERED: HOLD METFORMIN - RECEIVED CONTRAST 20 ML VIAL IV SCH (18:00)
[2020-12-26] MEDS ORDERED: NS 100 ML (IVPB) BAG IV ONE (18:00)
[2020-12-26] MEDS ORDERED: IOHEXOL 350 MG/ML 100 ML (OMNIPAQUE 350) VIAL IV ONE (18:00)
[2020-12-26 18:03] LABS: BACTERIA,URINE NEGATIVE /HPF; RBC,URINE 0-2 /HPF; RENAL EPITHELIAL CELLS,URINE RARE /HPF
--- NOTE | 2020-12-26 18:29 | Diagnostic Imaging Report ---
EXAMINATION: CT angiography head and neck with and without contrast. TECHNIQUE: After intravenous administration of contrast, thin section axial CT angiography of the head and neck was performed. Source data was reformatted into 3D MIP projections. All CT scans use one or more of the following dose optimizing techniques: automated exposure control, MA and/or KvP adjustment based on a patient size and exam type, or iterative reconstruction. Any measurements of internal carotid artery stenosis are provided according to NASCET criteria. HISTORY: Funny feeling in the head. COMPARISON: None available. FINDINGS: The carotid arteries are normal without stenosis. Vertebral arteries are normal without stenosis. Intracranial internal carotid arteries are normal. The middle cerebral arteries are normal. The posterior cerebral arteries are normal. The anterior cerebral arteries are normal. There is no large vessel occlusion. No aneurysm or vascular malformation is seen. The reis-white matter differentiation is normal. No mass effect or midline shift. The ventricles are normal in size and configuration. Basilar cisterns are patent. There are no intra-axial or extra-axial fluid collections. There is no intracranial hemorrhage. The orbits are normal. Paranasal sinuses are normal. Mastoid air cells are clear. No soft tissue abnormality is seen. No osseus lesions or fractures are seen. No lymphadenopathy is seen in the neck. The muscles of the neck are normal. Fascial planes are preserved and the deep spaces of the neck are normal. Limited views of the superior thorax are unremarkable. No osseous lesions or fractures are seen. IMPRESSION: Normal vasculature in the head and neck without large vessel occlusion. Dictated by: Dictated on workstation # [id number]
[2020-12-26] MEDS ORDERED: ASPIRIN 325 MG (5 GR) TABLET ONE (19:07)
[2020-12-26 19:15] VITALS: BP 187/89
[2020-12-26] MEDS ORDERED: ASPIRIN E.C. 325 MG (ECOTRIN) TABLET PO ONE (19:15)
== END 2020-12-26 19:15 | disposition home or self-care (01) ==
LOC: EDUNIT# 16:10 → ER 16:12
DX: G45.9 Transient cerebral ischemic attack, unspecified (principal); I25.10 Atherosclerotic heart disease of native coronary artery without angina pectoris; Z87.891 Personal history of nicotine dependence; Z79.82 Long term (current) use of aspirin; Z79.899 Other long term (current) drug therapy
CPT/HCPCS: 36415; 70450; 70496; 70498; 71045; 80053; 81000; 82947; 84484; 85025; 85379; 85610; 85730; 93005; 93041

== ENCOUNTER 2021-01-04 21:11 | Inpatient (IN) | payer MEDICARE, BC ==
[~2021-01-04] VITALS: Ht 183 cm; Wt 100.8 kg
[2021-01-04] MEDS ORDERED: ASPIRIN 325 MG (5 GR) TABLET PO ONE (21:45)
[2021-01-04 21:48] LABS: BILIRUBIN,URINE NEGATIVE (NEGATIVE); CLARITY,URINE CLEAR; COLOR,URINE YELLOW; GLUCOSE, URINE (UA) NEGATIVE (NEGATIVE); KETONES,URINE NEGATIVE (NEGATIVE); LEUKOCYTE ESTERASE ,URINE NEGATIVE (NEGATIVE); NITRITE,URINE NEGATIVE (NEGATIVE); PH,URINE 6.5 (5-9); PROTEIN,URINE NEGATIVE (NEGATIVE)
--- NOTE | 2021-01-04 21:52 | ED Neurological Problem ---
General Chief Complaint: Altered Mental Status Stated Complaint: HX TIA/CONFUSION/HEADACHE Nursing Triage Note: light headed, confusion x2 hrs Source: patient Exam Limitations: no limitations History of Present Illness Date Seen by Provider: Jan 04, 2021 Time Seen by Provider: 21:26 Initial Comments Patient to ER by private conveyance with his spouse and chief complaint headache and mild confusion getting in the door and getting his lazy boy chair to work. Symptoms started about 2 hours ago. He just arrived home after going out to eat dinner and mulberry. He says he had a beer which he only rarely ever drinks. He had a TIA last week and was told to return to the ER for any further symp toms. He did start aspirin 81 mg daily after his TIA. He is not on any blood thinners. No known history of atrial fibrillation. Follows with Dr. Dempsey and Dr. Roberson respectively. He is not having any facial droop, slurred speech, one-sided weakness or difficulty walking. Allergies and Home Medications Allergies Coded Allergies: hydrocodone (Unverified Allergy, Mild, 03/22/07) amlodipine (Unverified Allergy, Unknown, 10/25/13) benazepril (Unverified Allergy, Unknown, 10/25/13) codeine (Verified Allergy, Unknown, 09/02/05) telmisartan (Unverified Allergy, Unknown, 10/25/13) Patient Home Medication List Home Medication List Reviewed: Yes Amlodipine Besylate (Norvasc) 5 Mg Tablet, 5 MG PO DAILY, (Reported) Entered as Reported by: KANIKA RG on 05/21/09 0850 Aspirin (Aspirin 81 Mg Chew Tab) 81 Mg Chew, 81 MG PO DAILY, (Reported) Entered as Reported by: KANIKA RG on 05/21/09850 Metformin Hcl (Metformin 500 Mg) 500 Mg Tablet, 500 MG PO BID, (Reported) Entered as Reported by: KANIKA RG on 05/21/09850 Methotrexate Sodium (Methotrexate) 2.5 Mg Tablet, 2.5 MG PO WEEKLY, (Reported) Entered as Reported by: HOOD WEINSTEIN on 07/02/14757 Pantoprazole Sodium (Protonix SUSP.) 40 Mg Suspdr.pkt, 40 MG PO DAILY, (Reported) Entered as Reported by: HOOD WEINSTEIN on 5/6/15 0758 Propranolol Hcl (Inderal La) 120 Mg Cap.sa.24h, 120 MG PO DAILY, (Reported) Entered as Reported by: KANIKA RG on 05/21/09 08 Simvastatin (Zocor) 10 Mg Tab, 10 MG PO DAILY, (Reported) Entered as Reported by: KANIKA RG on 05/21/09 08 Tramadol Hcl (Tramadol Hcl) 50 Mg Tablet, 50 MG PO NEEDED, (Reported) Entered as Reported by: HOOD WEINSTEIN on 07/02/14 075 [Tramadol Hcl] 50 MG TAB, 50 MG PO Q6H PRN for PAIN Prescribed by: PASCUAL PEREZ on 10/30/13 0917 Review of Systems Review of Systems Constitutional: No chills, No diaphoresis Eyes: Denies Blindness, Denies Blurred Vision, Denies Drainage Ears, Nose, Mouth, Throat: denies ear pain, denies ear discharge Respiratory: No cough, No short of breath Cardiovascular: No Hx of Intervention, No palpitations Gastrointestinal: No abdominal pain, No nausea Genitourinary: No discharge, No dysuria Musculoskeletal: No back pain, No joint pain All Other Systems Reviewed Negative Unless Noted: Yes Past Tsqymyt-[id number]-Bsbkbr Hx Patient Social History Tobacco Use?: No Substance use?: No Alcohol Use?: Yes Alcohol type: Beer Alcohol Frequency: Rarely Pt feels they are or have been: No Immunizations Up To Date First/Initial COVID19 Vaccinat: 02/2020 Second COVID19 Vaccination Jose: 03/2020 COVID19 Vaccine Polymer Tester: amrit Past Medical History Surgery/Hospitalization HX: hernia x3, bilat cea, turp, ortho, niddm, htn, high lipids Surgeries: Yes (MENISCUS REPAIR, TURP, HERNIA X3, bilateral ENDARTERECTOMY,2 006) Cardiac, CABG Respiratory: No Cardiac: Yes (CABG X3 VESSELS) Coronary Artery Disease, Peripheral Vascular Neurological: No Reproductive Disorders: No Sexually Transmitted Disease: No Genitourinary: No Gastrointestinal: No Musculoskeletal: No Endocrine: No HEENT: Yes Hearing Impairment: Hard of Hearing, Hearing Aide Right Psychosocial: No Blood Disorders: No Physical Exam Vital Signs Vital Signs - First Documented 01/04/21 21:24 Temp 36.5 Pulse 53 Resp 16 B/P (MAP) 208/90 (129) Pulse Ox 98 O2 Delivery Room Air Capillary Refill : Less Than 3 Seconds Height, Weight, BMI Height: 6'0.00" Weight: 230lbs. 0.0oz. [id number]; 29.00 BMI Method: General Appearance: WD/WN, no apparent distress HEENT: PERRL/EOMI (3 mm reactive), normal ENT inspection; No TMs normal (Hearing aids in place); pharynx normal (Moist oral mucosa) Neck: non-tender, full range of motion, supple, normal inspection Respiratory: lungs clear, normal breath sounds, no respiratory distress, no accessory muscle use Cardiovascular: normal peripheral pulses, regular rate, rhythm Peripheral Pulses: 2+ Radial Pulses (R), 2+ Radial Pulses (L) Gastrointestinal: normal bowel sounds, non tender, soft Extremities: non-tender, normal inspection, normal capillary refill Neurologic/Psychiatric: document photographer II-XII nml as tested, no motor/sensory deficits, alert, normal mood/affect, oriented x 3 Crainal Nerves: normal hearing, normal speech, PERRL Coordination/Gait: normal finger to nose, normal gait Motor/Sensory: no motor deficit, no sensory deficit, no pronator drift, other (Generalized tremor) Skin: normal color, warm/dry Stroke Onset of Symptoms Date of Onset of Symptoms: Jan 04, 2021 Time of Symptom Onset: 19:30 Onset of Symptoms: Yes Symptoms onset unknown: No NIH Stroke Scale Assessment Select: Initial Level of Consciousness: 0=Alert (0), Level of Consciousness- Questions: 0=Answers both month/age (0), LOC Commands: 0=Performs both tasks (0), Gaze: Normal (0), Visual Estrada: 0=No visual loss (0), Facial Movement (Facial Paresis): 0=Normal symmetrical mnt (0), Motor Function-Arms Right: 0=No drift (0), Motor Function-Arms Left: 0=No drift (0), Motor Function-Legs Right: 0=No drift (0), Motor Function-Legs Left: 0=No drift (0), Limb Ataxia: 0=Absent (0), Sensory: 0=Normal:no loss (0), Best Language: 0=No aphasia (0), Dysarthria: 0=Normal (0), Extinction & Inattention: 0=No abnormality (0), Total: 0 Stroke Thrombolytic Exclusion Age 18 or Over: Yes Acute intenal hemorrhage: No History of CVA: Yes Uncontrolled Coagulation Defec: No Intracranial Hemorrhage: No Severe Hypertension: No GI or Bleed: No Subarachnoid Hemorrhage: No Intracranial Neoplasm/Aneurysm: No Oral Anticoagulants: No Surgery or Trauma: No Puncture of Non-Compressible V: No Recent CPR: No Diabetic Hemorrhagic Retinopat: No Organ Biopsy: No Recent Obstetric Delivery: No Glucose: No Significant Hepatic Dysfunctio: No NIH Stoke Scale >22: No Bacterial Endocarditis: No Pericarditis: No Improving Symptoms: Yes Platelets: No TPA Contraindication: Yes IV - TPa Received IV - TPa Procedure Performed?: No (Insufficient benefit to overwhelm the risk.) Progress/Results/Core Measures Results/Orders Lab Results Laboratory Tests Test 01/04/21 21:35 01/04/21 21:44 01/04/21 21:46 Range/Units Urine Color YELLOW Urine Clarity CLEAR Urine pH 6.5 5-9 Urine Specific [place] 1.020 1.016-1.022 Urine Protein NEGATIVE NEGATIVE Urine Glucose (UA) NEGATIVE NEGATIVE Urine Ketones NEGATIVE NEGATIVE Urine Nitrite NEGATIVE NEGATIVE Urine Bilirubin NEGATIVE NEGATIVE Urine Urobilinogen 0.2 < = 1.0 MG/DL Urine Leukocyte Esterase NEGATIVE NEGATIVE Urine RBC (Auto) NEGATIVE NEGATIVE Urine RBC NONE /HPF Urine WBC NONE /HPF Urine Squamous Epithelial Cells 0-2 /HPF Urine Crystals PRESENT H /LPF Urine Amorphous Sediment RARE ALYCE URATES H /LPF Urine Bacteria NEGATIVE /HPF Urine Casts NONE /LPF Urine Mucus NEGATIVE /LPF Urine Culture Indicated NO White Blood Count 10.1 4.3-11.0 10^3/uL Red Blood Count 4.36 4.30-5.52 10^6/uL Hemoglobin 13.5 13.3-17.7 g/dL Hematocrit 40 40-54 % Mean Corpuscular Volume 93 80-99 fL Mean Corpuscular Hemoglobin 31 25-34 pg Mean Corpuscular Hemoglobin Concent 33 32-36 g/dL Red Cell Distribution Width 12.9 10.0-14.5 % Platelet Count 222 130-400 10^3/uL Mean Platelet Volume 9.8 9.0-12.2 fL Immature Granulocyte % (Auto) 0 % Neutrophils (%) (Auto) 63 42-75 % Lymphocytes (%) (Auto) 26 12-44 % Monocytes (%) (Auto) 8 0-12 % Eosinophils (%) (Auto) 3 0-10 % Basophils (%) (Auto) 1 0-10 % Neutrophils # (Auto) 6.4 1.8-7.8 10^3/uL Lymphocytes # (Auto) 2.6 1.0-4.0 10^3/uL Monocytes # (Auto) 0.8 0.0-1.0 10^3/uL Eosinophils # (Auto) 0.3 0.0-0.3 10^3/uL Basophils # (Auto) 0.1 0.0-0.1 10^3/uL Immature Granulocyte # (Auto) 0.0 0.0-0.1 10^3/uL Sodium Level 135 135-145 MMOL/L Potassium Level 4.0 3.6-5.0 MMOL/L Chloride Level 96 L 98-107 MMOL/L Carbon Dioxide Level 25 21-32 MMOL/L Anion Gap 14 5-14 MMOL/L Blood Urea Nitrogen 15 7-18 MG/DL Creatinine 0.95 0.60-1.30 MG/DL Estimat Glomerular Filtration Rate 75 BUN/Creatinine Ratio 16 Glucose Level 132 H 70-105 MG/DL Calcium Level 9.1 8.5-10.1 MG/DL Corrected Calcium 9.1 8.5-10.1 MG/DL Total Bilirubin 0.4 0.1-1.0 MG/DL Aspartate Amino Transf (AST/SGOT) 18 5-34 U/L Alanine Aminotransferase (ALT/SGPT) 17 0-55 U/L Alkaline Phosphatase 50 40-136 U/L Troponin I < 0.028 <0.028 NG/ML C-Reactive Protein High Sensitivity 0.17 0.00-0.50 MG/DL Total Protein 6.6 6.4-8.2 GM/DL Albumin 4.0 3.2-4.5 GM/DL Serum Alcohol < 10 <10 MG/DL Glucometer 129 H 70-110 MG/DL My Orders Orders - YVETTE TRINIDAD Ua Culture If Indicated (01/04/21 21:23) Accucheck Stat ONCE (01/04/21 21:23) Orthostatic Vital Signs (Adult (01/04/21 21:44) Ct Head Wo (01/04/21 21:44) Cbc With Automated Diff (01/04/21 21:44) Comprehensive Metabolic Panel (01/04/21 21:44) Hs C Reactive Protein (01/04/21 21:44) Ekg Tracing (01/04/21 21:44) Continuous Ekg Monitoring (01/04/21 21:44) Aspirin Tablet (Aspirin Tablet) (01/04/21 21:45) Alcohol (01/04/21 21:44) Clonidine Tablet (Catapres Tablet) (01/04/21 22:45) Hydralazine Injection (Apresoline Inject (01/04/21 23:30) Medications Given in ED Current Medications Medications Dose Ordered Sig/Les Route Start Time Stop Time Status Last Admin Dose Admin Aspirin 325 mg ONCE ONCE PO 01/04/21 21:45 01/04/21 21:48 DC 01/04/21 22:05 325 MG Clonidine HCl 0.1 mg ONCE ONCE PO 01/04/21 22:45 01/04/21 22:46 DC 01/04/21 22:44 0.1 MG Hydralazine HCl 10 mg ONCE ONCE IV 01/04/21 23:30 01/04/21 23:31 DC 01/04/21 23:30 10 MG Vital Signs/I&O 01/04/21 01/04/21 21:24 21:57 Temp 36.5 Pulse 53 60 54 55 Resp 16 B/P (MAP) 208/90 (129) 185/87 (119) 209/85 (126) 198/90 (126) Pulse Ox 98 O2 Delivery Room Air Blood Pressure Mean: 129 Progress Progress Note #1: Time: 21:51 Progress Note Hypertensive encephalopathy? If blood pressure does not resolve then we will give him a dose of blood pressure medicine. Vague symptoms which could be consistent with TIA, recrudescence, source of delirium. The symptoms have passed as he is oriented not demonstrating any confusion tonight. Plan to check some labs including urine get an EKG, CT of the head to rule out hemorrhage. If there is nothing else to explain this could be potentially related to a TIA or the beer he drank. Orthostatic vital signs. Will increase his aspirin to 325 mg daily and have him follow-up with primary care. Progress Note #2: Time: 23:26 Progress Note 30 minutes after a dose of clonidine the patient's blood pressure is the same 207/93. Hydralazine 10 mg. Patient states he feels about the same as before. We did offer him an observation stay to help get his blood pressure down and he accepted. NIH 0 points. Progress Note #3: Time: 00:04 Progress Note The patient complaining of some acid reflux. We will give him a GI cocktail and some Pepcid. A troponin was added to his initial lab and a repeat troponin in the morning has been added. He has already received aspirin. Initial ECG Impression Date: Jan 04, 2021 Initial ECG Impression Time: 21:53 Initial ECG Rate: 56 Initial ECG Rhythm: Normal Sinus Initial ECG Intervals: [place] (272) Initial ECG Impression: Normal, Nonspecific Changes Comment Right bundle branch block prolonged [place] interval. No clinically relevant ST changes. Sinus rhythm Diagnostic Imaging Diagonstic Imaging: CT Plain Films/CT/US/NM/MRI: head Comments No acute territorial infarct. No acute intracranial hemorrhage, herniation or hydrocephalus. Chronic and involutional changes. Reviewed: Reviewed by Me Departure Communication (Admissions) Time/Spoke to Admitting Phy: 23:35 Discussed the case with Dr. Roberson and she agrees to observe the patient for hypertensive encephalopathy, hydralazine and clonidine. Impression Primary Impression: Hypertensive encephalopathy Additional Impression: suspect tia Disposition: ADMITTED INPATIENT Condition: Stable Admissions Decision to Admit Reason: Admit from ER (General) Decision to Admit/Date: Jan 04, 2021 Time/Decision to Admit Time: 23:30 Departure-Patient Inst. Referrals: JOSH ROBERSON MD (PCP/Family) Primary Care Physician YVETTE TRINIDAD Jan 04, 2021 21:52
[2021-01-04 21:57] VITALS: BP_SYST 185; BP_SYST 198; BP_SYST 209; BP_DIAS 85; BP_DIAS 87; BP_DIAS 90
[2021-01-04 22:00] LABS: BASOPHILS # (AUTO) 0.1 10^3/uL (0.0-0.1); BASOPHILS % (AUTO) 1 % (0-10); EOSINOPHILS # (AUTO) 0.3 10^3/uL (0.0-0.3); EOSINOPHILS % (AUTO) 3 % (0-10); HEMATOCRIT 40 % (40-54); HEMOGLOBIN 13.5 g/dL (13.3-17.7); LYMPHOCYTES # (AUTO) 2.6 10^3/uL (1.0-4.0); LYMPHOCYTES % (AUTO) 26 % (12-44); MEAN CORPUSCULAR HEMOGLOBIN 31 pg (25-34); MEAN CORPUSCULAR HGB CONC 33 g/dL (32-36); MEAN CORPUSCULAR VOLUME 93 fL (80-99); MEAN PLATELET VOLUME 9.8 fL (9.0-12.2); MONOCYTES # (AUTO) 0.8 10^3/uL (0.0-1.0); MONOCYTES % (AUTO) 8 % (0-12); NEUTROPHILS # (AUTO) 6.4 10^3/uL (1.8-7.8); NEUTROPHILS % (AUTO) 63 % (42-75); PLATELET COUNT 222 10^3/uL (130-400); WHITE BLOOD COUNT 10.1 10^3/uL (4.3-11.0)
[2021-01-04 22:10] LABS: AMORPHOUS SEDIMENT,UR RARE AMOR URATES /LPF; BACTERIA,URINE NEGATIVE /HPF; SQUAMOUS EPITHELIAL CELL,UR 0-2 /HPF
[2021-01-04 22:13] LABS: CHLORIDE 96 MMOL/L (98-107); SODIUM 135 MMOL/L (135-145)
[2021-01-04 22:15] LABS: CALCIUM 9.1 MG/DL (8.5-10.1)
[2021-01-04 22:16] LABS: GLUCOSE 132 MG/DL (70-105); TOTAL PROTEIN 6.6 GM/DL (6.4-8.2)
[2021-01-04 22:17] LABS: CARBON DIOXIDE 25 MMOL/L (21-32)
[2021-01-04 22:18] LABS: BILIRUBIN,TOTAL 0.4 MG/DL (0.1-1.0)
[2021-01-04 22:19] LABS: ALKALINE PHOSPHATASE 50 U/L (40-136)
[2021-01-04 22:20] LABS: CREATININE SERUM 0.95 MG/DL (0.60-1.30); GFR ESTIMATED 75
[2021-01-04 22:21] LABS: BUN/CREATININE RATIO 16
[2021-01-04 22:22] LABS: ALANINE AMINOTRANSFERASE 17 U/L (0-55)
[2021-01-04] MEDS ORDERED: cloNIDine 0.1 MG (CATAPRES) TAB PO ONE (22:45)
[2021-01-04] MEDS ORDERED: hydrALAZINE (APESOLINE) 20 MG/ML VIAL IV ONE (23:30)
[2021-01-05] VITALS (16 sets, daily range): BP systolic 106–211; BP diastolic 65–130
[2021-01-05] MEDS ORDERED: FAMOTIDINE 20 MG (PEPCID) TABLET PO STA (00:01)
[2021-01-05] MEDS ORDERED: LIDOCAINE 2% VISCOUS 15 ML UDC PO ONE (00:15)
[2021-01-05] MEDS ORDERED: ANTACID SUSP 30 ML UDC (MYLANTA) PO ONE (00:15)
--- NOTE | 2021-01-05 00:43 | Tele-ICU Consult ---
History of Present Illness History of Present Illness Date Seen by Provider: Jan 05, 2021 Time Seen by Provider: 00:20 Date of Admission This virtual visit was conducted using real time audio/video. Thank you for asking us to see this patient for mild confusion earlier with possible hypertensive ensephalopathy. Recent events: Now feel s better. PMH: CAD/CABG PAD TIA 1 week ago DM2 HTN HL SH: smoking history N FH: Non-contributory ROS: limited to HPI. PE: 208/90 53 SB. O2 sat 98% on RA. HEENT: No obvious masses, adenopathy or JVD. Chest: clear to auscultation. CV: RRR S1 S2 No murmur or added sounds. Abd: Non-tender. Bowel sounds Y. : Unremarkable. Justice N. 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 No obvious focal findings. Extremities: No edema. Capillary refill < 3 seconds. Skin: unremarkable. Results: Elevated BG 129. CTH unremarkable.. Available chart/ vitals / labs / images reviewed. Video assessment done using teleICU camera, rest of exam as per RN. A/P: Possible hypertensive encephalopathy. Monitor and treat SBP >160 PRN. Monitor BG. Discussed with LIZZIE Carlson. Asked RN to reach out to eICU if any questions or concerns later. Time spent with patient/coordination of care with other health professionals (mins): 24 Allergies and Home Medications Allergies Coded Allergies: hydrocodone (Unverified Allergy, Mild, 03/22/07) amlodipine (Unverified Allergy, Unknown, 10/25/13) benazepril (Unverified Allergy, Unknown, 10/25/13) codeine (Verified Allergy, Unknown, 09/02/05) telmisartan (Unverified Allergy, Unknown, 10/25/13) Home Medications Amlodipine Besylate 5 Mg Tablet, 5 MG PO DAILY, (Reported) Aspirin 81 Mg Chew, 81 MG PO DAILY, (Reported) Metformin Hcl 500 Mg Tablet, 500 MG PO BID, (Reported) Methotrexate Sodium 2.5 Mg Tablet, 2.5 MG PO WEEKLY, (Reported) Pantoprazole Sodium 40 Mg Suspdr.pkt, 40 MG PO DAILY, (Reported) Propranolol Hcl 120 Mg Cap.sa.24h, 120 MG PO DAILY, (Reported) Simvastatin 10 Mg Tab, 10 MG PO DAILY, (Reported) Tramadol Hcl 50 Mg Tablet, 50 MG PO NEEDED, (Reported) [Tramadol Hcl] 50 MG TAB, 50 MG PO Q6H PRN for PAIN MAY TAKE ONE TABLET BY MOUTH EVERY 6 HRS NEEDED FOR PAIN. Prescribed by: PASCUAL PEREZ on 10/30/13 0917 Past Medical/Social/Family Hx Patient Social History Tobacco Use?: No Substance use?: No Alcohol Use?: Yes Alcohol type: Beer Alcohol Frequency: Rarely Pt stated abuse/neglect: No Immunizations Up To Date First/Initial COVID19 Vaccinat: 02/2020 Second COVID19 Vaccination Jose: 03/2020 Tetanus Booster (TDap): More Than 5 Years Date of Pneumonia Vaccine: July 02, 2009 Current Status Advance Directives: No Communicates: Verbally Primary Language: Peruvian Preferred Spoken Language: Peruvian Sensory deficits: Vision impairment, Hearing impairment Review of Systems Constitutional: see HPI EENTM: see HPI Respiratory: see HPI Cardiovascular: see HPI Gastrointestinal: see HPI Genitourinary: see HPI Musculoskeletal: see HPI Skin: see HPI Psychiatric/Neurological: See HPI All Other Systems Reviewed Negative Unless Noted: Yes Sepsis Event Evaluation Height, Weight, BMI Height: 6'0.00" Weight: 230lbs. 0.0oz. 104.776548nj; 29.00 BMI Method: Exam Exam Patient acknowledged, consented, and participated in this virtual visit which was conducted using real time audio/video Vital Signs Date Time Temp Pulse Resp B/P (MAP) Pulse Ox O2 Delivery O2 Flow Rate FiO2 01/05/21 00:20 36.7 60 18 188/95 98 Room Air 01/04/21 21:57 60 185/87 (119) 54 209/85 (126) 55 198/90 (126) 01/04/21 21:24 36.5 53 16 208/90 (129) 98 Room Air Height & Weight Height: 6'0.00" Weight: 230lbs. 0.0oz. 104.185741wp; 29.00 BMI Method: General Appearance: No Apparent Distress Capillary Refill: Less Than 3 Seconds Peripheral Pulses: 2+ Radial Pulses (R), 2+ Radial Pulses (L) Gastrointestinal: normal bowel sounds, non tender, soft Results Lab Laboratory Tests 01/04/21 21:44 Assessment/Plan Assessment/Plan See free text. Critical Care: Critically Ill Patient LISA MORRELL MD Jan 05, 2021 00:43
[2021-01-05] MEDS ORDERED: hydrALAZINE (APESOLINE) 20 MG/ML VIAL IV ONE (01:15)
[2021-01-05] MEDS ORDERED: hydrALAZINE (APESOLINE) 20 MG/ML VIAL ONE ×2 (01:25→01:26)
[2021-01-05] MEDS ORDERED: ONDANSETRON 4 MG/2 ML (SDV) Z0FRAN ONE (01:35)
[2021-01-05] MEDS ORDERED: PROMETHAZINE INJ 25 MG/ML (PHENERGAN) AMP IVP PRN (01:45)
[2021-01-05] MEDS: ONDANSETRON 4 MG/2 ML (SDV) Z0FRAN IVP PRN (01:45)
[2021-01-05] MEDS ORDERED: fentaNYL INJ 100 MCG/2 ML AMP IV PRN (02:15)
[2021-01-05] MEDS ORDERED: ONDANSETRON 4 MG/2 ML (SDV) Z0FRAN IV PRN (02:15)
[2021-01-05] MEDS ORDERED: cloNIDine 0.1 MG (CATAPRES) TAB PO PRN (02:15)
[2021-01-05] MEDS ORDERED: ANTACID SUSP 30 ML UDC (MYLANTA) PO PRN (02:15)
[2021-01-05] MEDS ORDERED: hydrALAZINE (APESOLINE) 20 MG/ML VIAL IV PRN (02:15)
[2021-01-05 05:04] LABS: BASOPHILS # (AUTO) 0.1 10^3/uL (0.0-0.1); BASOPHILS % (AUTO) 0 % (0-10); EOSINOPHILS % (AUTO) 0 % (0-10); HEMATOCRIT 42 % (40-54); HEMOGLOBIN 14.5 g/dL (13.3-17.7); LYMPHOCYTES # (AUTO) 1.4 10^3/uL (1.0-4.0); LYMPHOCYTES % (AUTO) 9 % (12-44); MEAN CORPUSCULAR HEMOGLOBIN 31 pg (25-34); MEAN CORPUSCULAR HGB CONC 34 g/dL (32-36); MEAN CORPUSCULAR VOLUME 91 fL (80-99); MEAN PLATELET VOLUME 10.3 fL (9.0-12.2); MONOCYTES # (AUTO) 0.9 10^3/uL (0.0-1.0); MONOCYTES % (AUTO) 5 % (0-12); NEUTROPHILS # (AUTO) 13.7 10^3/uL (1.8-7.8); NEUTROPHILS % (AUTO) 85 % (42-75); PLATELET COUNT 230 10^3/uL (130-400); WHITE BLOOD COUNT 16.2 10^3/uL (4.3-11.0)
[2021-01-05 05:23] LABS: CHLORIDE 95 MMOL/L (98-107); POTASSIUM 3.6 MMOL/L (3.6-5.0); SODIUM 132 MMOL/L (135-145)
[2021-01-05 05:24] LABS: CALCIUM 9.1 MG/DL (8.5-10.1); GLUCOSE 147 MG/DL (70-105)
[2021-01-05 05:26] LABS: CARBON DIOXIDE 21 MMOL/L (21-32)
[2021-01-05 05:28] LABS: CREATININE SERUM 0.77 MG/DL (0.60-1.30); GFR ESTIMATED 96
[2021-01-05 05:29] LABS: BUN/CREATININE RATIO 17
[2021-01-05] MEDS: CATHETER FLUSH 10 ML SYR IV SCH ×3 (05:38→21:12)
[2021-01-05] MEDS: inSUlin ASPART (NovoLOG) 1 UNIT/0.01 ML (CHARGE PER UNIT) SC SCH ×4 (05:38→20:52)
[2021-01-05 05:47] LABS: LYMPHOCYTES % (MANUAL) 11 %; MONOCYTES % (MANUAL) 4 %; NEUTROPHILS % (MANUAL) 85 %
--- NOTE | 2021-01-05 08:01 | Diagnostic Imaging Report ---
PROCEDURE: CT head without contrast. TECHNIQUE: Multiple contiguous axial images were obtained through the brain without the use of intravenous contrast. Auto Exposure Controls were utilized during the CT exam to meet ALARA standards for radiation dose reduction. DATE: January 04, 2021 COMPARISON: CT head without contrast December 26, 2020. INDICATION: 85-year-old male, lightheaded and confusion. FINDINGS: There is proportional prominence of the ventricles and additional CSF spaces consistent with moderate to severe cerebral volume loss. There is an area of low-attenuation in the region of the left inferior basal ganglia which is CSF-like in attenuation. There is no mass effect or midline shift. There is no acute intracranial hemorrhage. There is no abnormal extra-axial fluid collection. The visualized portions of the paranasal sinuses, mastoid air cells and middle ears are well aerated. IMPRESSION: 1. No identified acute intracranial abnormality. 2. Moderate to severe cerebral volume loss. 3. Remote lacunar infarct versus prominent perivascular space in the region of the inferior aspect of the left basal ganglia. Dictated by: Dictated on workstation # [id number]
--- NOTE | 2021-01-05 08:39 | History & Physical ---
History of Present Illness History of Present Illness Reason for visit/HPI PT IS AN 85 Y/O MALE WHO IS KNOWN TO ME FROM CLINIC. MR. BAUER HAD AN EPISODE OF CONFUSION, WEAKNESS AND WAS FOUND TO HAVE ACUTE AND SEVERE HYPERTENSION ON EVAL IN THE EMERGENCY DEPARTMENT. HE WAS SENT FOR IMAGING - NEGATIVE FOR ACUTE STROKE, AND HE HAD SLIGHT I MPROVEMENT IN HIS COGNITION WITH IV ANTIHYPERTENSIVE MEDICATIONS. Date of Admission Jan 04, 2021 at 23:45 Date Seen by a Provider: Jan 05, 2021 Time Seen by a Provider: 08:30 I consulted on this patient on 01/05/21 08:38 Attending Physician Josh Roberson MD Admitting Physician Josh Roberson MD Consult Allergies and Home Medications Allergies Coded Allergies: hydrocodone (Unverified Allergy, Mild, 03/22/07) amlodipine (Unverified Allergy, Unknown, 10/25/13) benazepril (Unverified Allergy, Unknown, 10/25/13) codeine (Verified Allergy, Unknown, 09/02/05) telmisartan (Unverified Allergy, Unknown, 10/25/13) Patient Home Medication List Home Medication List Reviewed: Yes Aspirin (Aspirin EC) 81 Mg Tablet.dr, 81 MG PO HS, (Reported) Entered as Reported by: FRANSISCA CAMEJO on 01/05/211130 Last Action: Continued Atorvastatin Calcium (Atorvastatin Calcium) 10 Mg Tablet, 10 MG PO HS, (Reported) Entered as Reported by: FRANSISCA CAMEJO on 01/05/211130 Last Action: Continued Clonidine HCl (Clonidine HCl) 0.1 Mg Tablet, 0.1 MG PO BID, (Reported) Entered as Reported by: FRANSISCA CAMEJO on 01/05/211130 Last Action: Held Cyanocobalamin (Vitamin B-12) (Vitamin B-12) 500 Mcg Tablet, 500 MCG PO DAILY, (Reported) Entered as Reported by: FRANSISCA CAMEJO on 01/05/211130 Last Action: Held Hydrochlorothiazide (Hydrochlorothiazide) 12.5 Mg Tablet, 12.5 MG PO DAILY, (Reported) Entered as Reported by: FRANSISCA CAMEJO on 01/05/211130 Last Action: Held Losartan Potassium (Losartan Potassium) 50 Mg Tablet, 100 MG PO DAILY, (Reported) Entered as Reported by: FRANSISCA CAMEJO on 01/05/211130 Last Action: Reviewed Metformin HCl (Metformin HCl ER) 500 Mg Tab.er.24h, 500 MG PO BIDAC, (Reported) Entered as Reported by: FRANSISCA CAMEJO on 01/05/211130 Last Action: Continued Pediatric Multivit Comb No.136 (Children Multivitamin) 1 Each Tab.chew, 1 EACH PO DAILY, (Reported) Entered as Reported by: FRANSISCA CAMEJO on 01/05/211130 Last Action: Held Propranolol HCl (Propranolol HCl ER) 80 Mg Cap.sa.24h, 80 MG PO DAILY, (Reported) Entered as Reported by: FRANSISCA CAMEJO on 01/05/211130 Last Action: Held Ubidecarenone (Co Q-10) 100 Mg Capsule, 100 MG PO DAILY, (Reported) Entered as Reported by: FRANSISCA CAMEJO on 01/05/211130 Last Action: Held Discontinued Medications Amlodipine Besylate (Norvasc) 5 Mg Tablet, 5 MG PO DAILY, (Reported) Discontinued Reason: No Longer Taking Entered as Reported by: KANIKA RG on 05/21/09849 Last Action: Discontinued Aspirin (Aspirin 81 Mg Chew Tab) 81 Mg Chew, 81 MG PO DAILY, (Reported) Discontinued Reason: Duplicate Order Entered as Reported by: KANIKA RG on 05/21/09850 Last Action: Discontinued Metformin Hcl (Metformin 500 Mg) 500 Mg Tablet, 500 MG PO BID, (Reported) Discontinued Reason: Duplicate Order Entered as Reported by: KANIKA RG on 05/21/09850 Last Action: Discontinued Methotrexate Sodium (Methotrexate) 2.5 Mg Tablet, 2.5 MG PO WEEKLY, (Reported) Discontinued Reason: No Longer Taking Entered as Reported by: HOOD WEINSTEIN on 07/02/14757 Last Action: Discontinued Pantoprazole Sodium (Protonix SUSP.) 40 Mg Suspdr.pkt, 40 MG PO DAILY, (Reported) Discontinued Reason: No Longer Taking Entered as Reported by: HOOD WEINSTEIN on 07/02/14757 Last Action: Discontinued Propranolol Hcl (Inderal La) 120 Mg Cap.sa.24h, 120 MG PO DAILY, (Reported) Discontinued Reason: No Longer Taking Entered as Reported by: KANIKA RG on 05/21/09850 Last Action: Discontinued Simvastatin (Zocor) 10 Mg Tab, 10 MG PO DAILY, (Reported) Discontinued Reason: No Longer Taking Entered as Reported by: KANIKA RG on 05/21/09 0851 Last Action: Discontinued Tramadol Hcl (Tramadol Hcl) 50 Mg Tablet, 50 MG PO NEEDED, (Reported) Discontinued Reason: No Longer Taking Entered as Reported by: HOOD WEINSTEIN on 07/02/14 0758 Last Action: Discontinued [Tramadol Hcl] 50 MG TAB, 50 MG PO Q6H PRN for PAIN Discontinued Reason: No Longer Taking Prescribed by: PASCUAL PEREZ on 10/30/13 0917 Last Action: Discontinued Past Sakspaz-Jfjzvj-Nzzveq Hx Patient Social History Marrital Status: Living Status: lives at home [place] Employed/Student: retired Tobacco Use?: No Smoking Status: Former Smoker Use of E-Cig and/or Vaping dev: No Substance use?: No Alcohol Use?: Yes Alcohol type: Beer Alcohol Frequency: Once in a while Pt feels they are or have been: No Immunizations Up To Date Date of Influenza Vaccine: Jan 01, 2021 First/Initial COVID19 Vaccinat: 02/2020 Second COVID19 Vaccination Jose: 03/2020 Tetanus Booster (TDap): More Than 5 Years Date of Pneumonia Vaccine: July 02, 2009 Current Status Advance Directives: No Communicates: Verbally Primary Language: Maltese Preferred Spoken Language: Maltese Is interpretation needed?: No Sensory deficits: Vision impairment, Hearing impairment Past Medical History Surgeries: Cardiac, CABG Coronary Artery Disease, Peripheral Vascular Sexually Transmitted Disease: No Hearing Impairment: Hard of Hearing, Hearing Aide Right Blood Disorders: No Family Medical History Reviewed and Corrections made Heart Disease, Hypertension Review of Systems Constitutional: dizziness, malaise, weakness EENTM: hearing loss; No see HPI, No no symptoms reported, No throat pain Respiratory: dyspnea on exertion, short of breath Cardiovascular: No chest pain, No edema; vascular heart diseas Gastrointestinal: No abdominal pain, No constipation, No diarrhea, No dysphagia, No heartburn, No nausea, No vomiting; other Genitourinary: frequency Musculoskeletal: back pain, joint pain, muscle pain, muscle weakness Psychiatric/Neurological: Anxiety, Headache, Weakness, Other (confusion, severe headache on admission, now improved) All Other Systems Reviewed Negative Unless Noted: Yes Physical Exam Vital Signs Vital Signs - First Documented 01/04/21 21:24 Temp 36.5 Pulse 53 Resp 16 B/P (MAP) 208/90 (129) Pulse Ox 98 O2 Delivery Room Air Capillary Refill : Less Than 3 Seconds Height, Weight, BMI Height: 6'0.00" Weight: 230lbs. 0.0oz. [id number]; 30.09 BMI Method: General Appearance: No Apparent Distress, WD/WN HEENT: PERRL/EOMI, Pharynx Normal Neck: Full Range of Motion, Supple Respiratory: Chest Non Tender, Lungs Clear, Normal Breath Sounds, No Accessory Muscle Use, No Respiratory Distress Cardiovascular: Regular Rate, Rhythm, Systolic Murmur Gastrointestinal: Normal Bowel Sounds, Non Tender, Soft Rectal: Deferred Back: Normal Inspection Extremity: Normal Capillary Refill, Non Tender, No Calf Tenderness, Pedal Edema (trace) Neurologic/Psychiatric: Alert, Oriented x3, Normal Mood/Affect Skin: Normal Color, Warm/Dry Lymphatic: No Adenopathy Assessment/Plan Assessment and Plan HYPERTENSIVE ENCEPHALOPATHY HYPERTENSION CORONARY ARTERY DISEASE DIABETES MELLITUS WEAKNESS FATIGUE HEADACHE HYPERTENSIVE ENCEPHALOPATHY WITH LABILE HYPERTENSION - DISCUSSeD WITH CARDIOLOGY - PT HAS BEEN SEEN MULTIPLE TIMES IN THE [facility] WITH ELEVATED BP WHICH DOES NOT SEEM TO RESPOND WELL TO MEDS, HOWEVER AFTER A DOSE OF CLONIDINE ORALLY - HIS BP DROPPED DRASTICALLY - CONCERN FOR MEDICATION NON COMPLIANCE AT HOME DESPITE PT PROTESTATIONS TO THE NEGATIVE. - MONITOR BP, ADJUST MEDICATIONS. WILL NEED MORE THAN 48 HOURS IN THE HOSPITAL FOR STABILIZATION OF HIS BP AND FOR FURTHER WORK-UP. CORONARY ARTERY DISEASE - RESUME PARTIAL HOME REGIMEN, DEFER TO DR. LEGER DIABETES MELLITUS - RESUME METFORMIN WEAKNESS AND FATIGUE - WILL START THERAPY TOMORROW. DVT PROPHYLAXIS WITH LOVENOX AND SCD'S GI PROPHYLAXIS WITH PEPCID. Admission Diagnosis HYPERTENSIVE ENCEPHALOPATHY HYPERTENSION CORONARY ARTERY DISEASE DIABETES MELLITUS WEAKNESS FATIGUE HEADACHE Admission Status: Inpatient Order (span 2 midnights) Reason for Inpatient Admission: INPT ADMISSION FOR HYPERTENSIVE ENCEPHALOPATHY AND HYPERTENSIVE URGENCY WITH NEED FOR AT LEAST 48-72 HOURS IN HOSPITAL FOR MEDICATION ADJUSTMENTS. Clinical Quality Measures Stroke: Date of last known well: Jan 04, 2021 Time of last known well: 19:30 Symptoms onset unknown: No JOSH ROBERSON MD Jan 05, 2021 08:39
[2021-01-05] MEDS ORDERED: cloNIDine 0.1 MG (CATAPRES) TAB PO SCH (09:00)
[2021-01-05] MEDS ORDERED: PROPRANOLOL ER 80 MG CAP (INDERAL LA) PO SCH (09:00)
--- NOTE | 2021-01-05 09:09 | Consultation-Cardiology ---
HPI-Cardiology Cardiology Consultation Date of Consultation 01/05/21 Date of Admission Time Seen by Provider: 09:04 Indication: Change in mental status HPI 85 years old gentleman with history of malignant hypertension, labile blood pressure, has been having difficulty achieving adequate control. I saw him in the office yesterday and his blood pressure was around 150-160. I made few changes to his medication but he started to get confused in the afternoon, became lightheaded. Having foggy thoughts. Came to the hospital and his blood pressure was significantly elevated. CT scan showed general atrophy. Feeling better but still a little foggy, concerned about his blood pressure and difficulty achieving adequate control. Denies any chest pain. No syncope. Home Medications & Allergies Allergies: Coded Allergies: hydrocodone (Unverified Allergy, Mild, 03/22/07) amlodipine (Unverified Allergy, Unknown, 10/25/13) benazepril (Unverified Allergy, Unknown, 10/25/13) codeine (Verified Allergy, Unknown, 09/02/05) telmisartan (Unverified Allergy, Unknown, 10/25/13) Home Medication List Reviewed: Yes HUE-Dxtzqv-Vfsjek Hx Patient Social History Marital Status: Employed/Student: retired Smoking Status: Former Smoker Type Used: Cigarettes 2nd Hand Smoke Exposure: No Recent Hopitalizations: Yes Have you traveled recently?: No Alcohol Use?: Yes Immunizations Up To Date Date of Pneumonia Vaccine: July 02, 2009 Date of Influenza Vaccine: Jan 01, 2021 Past Medical History Discussed below Family Medical History Family Medical Hx Noncontributory to his current condition Review of Systems-General Review of Systems Constitutional: see HPI; No chills, No diaphoresis; malaise, weakness EENTM: see HPI, no symptoms reported Respiratory: see HPI; No cough, No short of breath Cardiovascular: see HPI; No chest pain; edema; No Hx of Intervention, No palpitations, No syncope, No vascular heart diseas, No other Gastrointestinal: see HPI; No abdominal pain, No nausea Genitourinary: see HPI; No discharge, No dysuria Musculoskeletal: see HPI; No back pain; joint pain Skin: see HPI Psychiatric/Neurological: See HPI, Tremors, Weakness, Other (Confused) All Other Systems Reviewed Negative Unless Noted: Yes Reviewed Test Results Reviewed Test Results Lab Laboratory Tests Test 01/04/21 21:35 01/04/21 21:44 01/04/21 21:46 01/05/21 04:36 Range/Units Urine Color YELLOW Urine Clarity CLEAR Urine pH 6.5 5-9 Urine Specific [place] 1.020 1.016-1.022 Urine Protein NEGATIVE NEGATIVE Urine Glucose (UA) NEGATIVE NEGATIVE Urine Ketones NEGATIVE NEGATIVE Urine Nitrite NEGATIVE NEGATIVE Urine Bilirubin NEGATIVE NEGATIVE Urine Urobilinogen 0.2 < = 1.0 MG/DL Urine Leukocyte Esterase NEGATIVE NEGATIVE Urine RBC (Auto) NEGATIVE NEGATIVE Urine RBC NONE /HPF Urine WBC NONE /HPF Urine Squamous Epithelial Cells 0-2 /HPF Urine Crystals PRESENT H /LPF Urine Amorphous Sediment RARE ALYCE URATES H /LPF Urine Bacteria NEGATIVE /HPF Urine Casts NONE /LPF Urine Mucus NEGATIVE /LPF Urine Culture Indicated NO White Blood Count 10.1 16.2 H 4.3-11.0 10^3/uL Red Blood Count 4.36 4.62 4.30-5.52 10^6/uL Hemoglobin 13.5 14.5 13.3-17.7 g/dL Hematocrit 40 42 40-54 % Mean Corpuscular Volume 93 91 80-99 fL Mean Corpuscular Hemoglobin 31 31 25-34 pg Mean Corpuscular Hemoglobin Concent 33 34 32-36 g/dL Red Cell Distribution Width 12.9 12.9 10.0-14.5 % Platelet Count 222 230 130-400 10^3/uL Mean Platelet Volume 9.8 10.3 9.0-12.2 fL Immature Granulocyte % (Auto) 0 0 % Neutrophils (%) (Auto) 63 85 H 42-75 % Lymphocytes (%) (Auto) 26 9 L 12-44 % Monocytes (%) (Auto) 8 5 0-12 % Eosinophils (%) (Auto) 3 0 0-10 % Basophils (%) (Auto) 1 0 0-10 % Neutrophils # (Auto) 6.4 13.7 H 1.8-7.8 10^3/uL Lymphocytes # (Auto) 2.6 1.4 1.0-4.0 10^3/uL Monocytes # (Auto) 0.8 0.9 0.0-1.0 10^3/uL Eosinophils # (Auto) 0.3 0.0 0.0-0.3 10^3/uL Basophils # (Auto) 0.1 0.1 0.0-0.1 10^3/uL Immature Granulocyte # (Auto) 0.0 0.1 0.0-0.1 10^3/uL Sodium Level 135 132 L 135-145 MMOL/L Potassium Level 4.0 3.6 3.6-5.0 MMOL/L Chloride Level 96 L 95 L 98-107 MMOL/L Carbon Dioxide Level 25 21 21-32 MMOL/L Anion Gap 14 16 H 5-14 MMOL/L Blood Urea Nitrogen 15 13 7-18 MG/DL Creatinine 0.95 0.77 0.60-1.30 MG/DL Estimat Glomerular Filtration Rate 75 96 BUN/Creatinine Ratio 16 17 Glucose Level 132 H 147 H 70-105 MG/DL Calcium Level 9.1 9.1 8.5-10.1 MG/DL Corrected Calcium 9.1 8.5-10.1 MG/DL Total Bilirubin 0.4 0.1-1.0 MG/DL Aspartate Amino Transf (AST/SGOT) 18 5-34 U/L Alanine Aminotransferase (ALT/SGPT) 17 0-55 U/L Alkaline Phosphatase 50 40-136 U/L Troponin I < 0.028 < 0.028 <0.028 NG/ML C-Reactive Protein High Sensitivity 0.17 0.00-0.50 MG/DL Total Protein 6.6 6.4-8.2 GM/DL Albumin 4.0 3.2-4.5 GM/DL Serum Alcohol < 10 <10 MG/DL Glucometer 129 H 70-110 MG/DL Neutrophils % (Manual) 85 % Lymphocytes % (Manual) 11 % Monocytes % (Manual) 4 % Physical Exam Physical Exam Vital Signs Vital Signs - First Documented 01/04/21 21:24 Temp 36.5 Pulse 53 Resp 16 B/P (MAP) 208/90 (129) Pulse Ox 98 O2 Delivery Room Air Capillary Refill : Less Than 3 Seconds Height, Weight, BMI Height: 6'0.00" Weight: 230lbs. 0.0oz. 104.338039xm; 30.09 BMI Method: General Appearance: No Apparent Distress Eyes: Bilateral Eye Normal Inspection, Bilateral Eye PERRL, Bilateral Eye EOMI HEENT: PERRL/EOMI, TMs Normal, Normal ENT Inspection, Pharynx Normal, Moist Mucous Membranes Neck: Full Range of Motion, Normal Inspection, Non Tender, Supple, Carotid Bruit Respiratory: Chest Non Tender, Normal Breath Sounds, No Accessory Muscle Use, No Respiratory Distress Cardiovascular: Regular Rate, Rhythm, No Edema, No Gallop, No JVD, No Murmur, Normal Peripheral Pulses Gastrointestinal: Normal Bowel Sounds, No Organomegaly, No Pulsatile Mass, Non Tender, Soft Back: Normal Inspection, No CVA Tenderness, No Vertebral Tenderness Extremity: Normal Capillary Refill, Normal Inspection, Normal Range of Motion, Non Tender, No Calf Tenderness, No Pedal Edema Neurologic/Psychiatric: Alert, Oriented x3, No Motor/Sensory Deficits, Normal Mood/Affect Skin: Normal Color, Warm/Dry Lymphatic: No Adenopathy A/P-Cardiology Admission Diagnosis Change in mental status Hypertensive emergency Coronary artery disease Palpitation Assessment/Plan Acute change in mental status with hypertensive emergency, blood pressure is better, getting back to baseline slowly. CT scan of the head showed diffuse atrophy. Nonspecific findings. No acute stroke. Hypertension, labile blood pressure due to autonomic dysfunction, malignant hypertension was evaluated in the ER with high blood pressure and TIA, in November, Patient has intolerance to multiple medication, Patient was intolerant to amlodipine due to sinus bradycardia and multiple pauses with first-degree AV block and right bundle branch block. I increased her losartan to 100 mg daily and he is tolerating it well I started clonidine 0.1 mg twice a day and he is tolerating it well Patient is complaining of fatigue and bradycardia, was on propranolol ER 60 mg twice a day. He is concerned about the tremor he has. I instructed him to change his propranolol back to 80 mg once a day and take it in the morning and monitor tolerance and response. History of intolerance to Cozaar with leg pain and cough, intolerance to Micardis with leg and ankle swelling, Lotrel causing swelling and cough, diltiazem was stopped in the past. Palpitation, has been occurring more frequently recently, planning to evaluate a Holter monitor, I will monitor telemetry for now Coronary artery disease Coronary artery bypass surgery in August 2005 at [facility]. Cardiac catheterization was in March 2007. It showed severe left coronary artery disease. There was a patent graft to an obtuse marginal branch of the left circumflex artery and a patent graft to the distal left anterior descending artery. A saphenous vein graft to the mid left anterior descending artery was occluded. The right coronary artery was dominant and had mild to moderate disease. Left ventricular ejection fraction was 60% and there was minimal localized anterolateral hypokinesis. Left ventricular end-diastolic pressure was normal. Stress test July 2018 revealed no ischemia or infarct. Continue to monitor, no changes are recommended Echocardiogram was done on April 30, 2020 showing normal LV size, EF 55 to 65%, left atrium 5.6 cm, mild MR, PA pressure 35 mmHg. Continue to monitor Holter monitor done in July 2020 showing sinus rhythm with episodes of bradycardia, sinus pauses with escape junctional bradycardia and first-degree AV block with right bundle branch block, occasional PVCs and PACs and short PAT. Sinus node dysfunction, persistent bradycardia and fatigue. Taking propranolol, was intolerant to amlodipine in the past. Continue to monitor History of right bundle branch block. Carotid artery stenosis, hx of L CEA in 2005, CTA of head and neck done Nov 2020 showing bilateral nonobstructive disease Maturity onset diabetes mellitus being managed by Dr. Roberson. Hyperlipidemia, maintained on Lipitor, evaluate lipid profile Chronic tremor treated with beta-jesica therapy, maintained on Inderal and reporting slightly worsening of his tremor when decreasing the dose of Inderal. We will evaluate his response to the lower dose at this time again, being managed by Dr. Roberson. Sleep apnea syndrome; patient does not wish to comply with therapy. Chronic left sided hearing loss Intolerance to LILIAN inhibitors and ARBs due to multiple symptoms, currently tolerating losartan. Bilateral Dupytren's contractures of hands S/p L carpal tunnel surgery by Dr Grider on Oct 30, 2013. Bilateral leg discomfort, but ABIs of 01/06/15 were normal Chronic mild intermittent dependent leg swelling, likely related to venous insuff Clinical Quality Measures Stroke: Date of last known well: Jan 04, 2021 Time of last known well: 19:30 Symptoms onset unknown: No LISANDRO LEGER MD Jan 05, 2021 09:09
[2021-01-05] MEDS: ASPIRIN E.C. 325 MG (ECOTRIN) TABLET PO SCH (09:52)
[2021-01-05] MEDS ORDERED: ASPI-1238 PO (11:31)
[2021-01-05] MEDS ORDERED: LOSA50TA63 PO (11:31)
[2021-01-05] MEDS ORDERED: PEDI1TAB60 PO (11:31)
[2021-01-05] MEDS ORDERED: PROP80CA4 PO (11:31)
[2021-01-05] MEDS ORDERED: UBID100C44 PO (11:31)
[2021-01-05] MEDS ORDERED: ATOR10TA66 PO (11:31)
[2021-01-05] MEDS ORDERED: CYAN500T8 PO (11:31)
[2021-01-05] MEDS ORDERED: HYDR12.56 PO (11:31)
[2021-01-05] MEDS ORDERED: METF-865 PO (11:31)
[2021-01-05] MEDS ORDERED: CLN.1T PO (11:31)
[2021-01-05] MEDS ORDERED: PATIENT MAY USE OWN MEDS, ALL MC SCH (11:45)
[2021-01-05] MEDS: metFORMIN XR 500 MG (GLUCOPHAGE XR) TAB PO SCH (17:37)
[2021-01-05] MEDS: ASPIRIN E.C. 81 MG (ECOTRIN) TAB PO SCH (21:11)
[2021-01-05] MEDS: AtorvaSTATin TABLET 10 MG TABLET PO SCH (21:11)
[2021-01-05] MEDS: cloNIDine 0.1 MG (CATAPRES) TAB PO SCH (21:11)
[2021-01-05] MEDS: ACETAMINOPHEN 500 MG TAB (TYLENOL) PO PRN (23:17)
[2021-01-06 00:18] VITALS: BP 98/50
[2021-01-06 04:15] VITALS: BP 118/53
[2021-01-06] MEDS: CATHETER FLUSH 10 ML SYR IV SCH ×3 (05:35→20:47)
[2021-01-06] MEDS: metFORMIN XR 500 MG (GLUCOPHAGE XR) TAB PO SCH ×2 (05:36→16:51)
[2021-01-06] MEDS: inSUlin ASPART (NovoLOG) 1 UNIT/0.01 ML (CHARGE PER UNIT) SC SCH ×4 (05:44→20:44)
[2021-01-06 07:31] VITALS: BP 178/84
--- NOTE | 2021-01-06 08:23 | Progress Note ---
Subjective Subjective Date Seen by Provider: Jan 06, 2021 Time Seen by Provider: 08:45 PT CONTINUES TO HAVE HEADACHE FROM HIS BP BEING ELEVATED. HE REPORTS FEELING WEAK, DOES NTO NOTE ANY SPECIFIC PART OF HIS BODY NOT WORKING WELL, FEELING WEAK, NUMB, OR OTHER CONCERNS BEYOND HIS USUAL TREMORS. Review of Systems General: No Chills; Fatigue, Malaise HEENT: No Head Aches Pulmonary: No Dyspnea, No Cough Cardiovascular: No: Chest Pain, Palpitations Gastrointestinal: No: Nausea, Abdominal Pain Genitourinary: No Dysuria Neurological: Weakness, Other (HEADACHE); No: Confusion All Other Systems Reviewed All Other Systems Reviewed: Yes Objective Exam Vital Signs Vital Signs Date Time Temp Pulse Resp B/P (MAP) Pulse Ox O2 Delivery O2 Flow Rate FiO2 01/06/21 07:31 36.4 47 20 178/84 (115) 96 Room Air 01/06/21 04:15 36.3 52 16 118/53 (74) 98 Room Air 01/06/21 01:00 50 01/06/21 00:18 36.6 56 16 98/50 (66) 93 Room Air 01/05/21 21:23 96 Room Air 01/05/21 20:35 36.4 60 18 124/66 (85) 93 Room Air 01/05/21 19:00 61 01/05/21 15:30 36.3 55 18 122/69 (86) 95 Room Air 01/05/21 14:49 36.9 56 18 138/65 (89) 95 Room Air 01/05/21 13:00 76 01/05/21 12:52 76 01/05/21 12:00 36.2 01/05/21 12:00 60 12 112/72 (85) 95 Room Air 01/05/21 09:00 96 Room Air l I & O 01/06/21 07:00 Intake Total 1320 ml Output Total 125 ml Balance 1195 ml General Appearance: No Apparent Distress, WD/WN Eyes: Bilateral Eye Normal Inspection, Bilateral Eye PERRL, Bilateral Eye EOMI HEENT: PERRL/EOMI, Pharynx Normal Neck: Full Range of Motion, Supple Respiratory: Chest Non Tender, Lungs Clear, Normal Breath Sounds, No Accessory Muscle Use, No Respiratory Distress Cardiovascular: Regular Rate, Rhythm, Systolic Murmur Gastrointestinal: Normal Bowel Sounds, Non Tender, Soft Rectal: Deferred Back: Normal Inspection Extremity: Normal Capillary Refill, Non Tender, No Calf Tenderness, Pedal Edema (trace) Neurologic/Psychiatric: Alert, Oriented x3, Normal Mood/Affect Skin: Normal Color, Warm/Dry Lymphatic: No Adenopathy Results Lab Laboratory Tests 01/05/21 10:41: Glucometer 177H 01/05/21 16:07: Glucometer 127H 01/05/21 20:49: Glucometer 128H 01/06/21 05:33: Glucometer 118H Assessment/Plan Assessment/Plan Admission Dx HYPERTENSIVE ENCEPHALOPATHY HYPERTENSION CORONARY ARTERY DISEASE DIABETES MELLITUS WEAKNESS FATIGUE HEADACHE Assessment and Plan HYPERTENSIVE ENCEPHALOPATHY HYPERTENSION CORONARY ARTERY DISEASE DIABETES MELLITUS WEAKNESS FATIGUE HEADACHE HYPERTENSIVE ENCEPHALOPATHY WITH LABILE HYPERTENSION - DISCUSSED WITH CARDIOLOGY - PT HAS BEEN SEEN MULTIPLE TIMES IN THE CARDIOLOGY CLINIC WITH ELEVATED BP WHICH DOES NOT SEEM TO RESPOND WELL TO MEDS - MONITOR BP, ADJUST MEDICATIONS. WILL NEED MORE TIME IN THE HOSPITAL FOR STABILIZATION OF HIS BP AND FOR FURTHER WORK-UP. CORONARY ARTERY DISEASE - RESUMED PARTIAL HOME REGIMEN, DEFER TO DR. LEGER DIABETES MELLITUS - RESUME METFORMIN WEAKNESS AND FATIGUE - THERAPY INITIATED. DVT PROPHYLAXIS WITH LOVENOX AND SCD'S GI PROPHYLAXIS WITH PEPCID. Admission Dx HYPERTENSIVE ENCEPHALOPATHY HYPERTENSION CORONARY ARTERY DISEASE DIABETES MELLITUS WEAKNESS FATIGUE HEADACHE Clinical Quality Measures Admission Status Admission Dx HYPERTENSIVE ENCEPHALOPATHY HYPERTENSION CORONARY ARTERY DISEASE DIABETES MELLITUS WEAKNESS FATIGUE HEADACHE Stroke: Date of last known well: Jan 04, 2021 Time of last known well: 19:30 Symptoms onset unknown: No JOSH MORENO MD Jan 06, 2021 08:23
[2021-01-06] MEDS ORDERED: LOSARTAN 100 MG (COZAAR) TABLET PO SCH (09:00)
[2021-01-06] MEDS ORDERED: LOSARTAN 50 MG (COZAAR) TAB PO SCH (09:00)
[2021-01-06] MEDS ORDERED: cloNIDine 0.1 MG PATCH (CATAPRES TTS) TDSY TD ONE (09:30)
[2021-01-06] MEDS: ASPIRIN E.C. 325 MG (ECOTRIN) TABLET PO SCH (09:38)
[2021-01-06] MEDS: cloNIDine 0.1 MG (CATAPRES) TAB PO SCH (09:39)
[2021-01-06] MEDS: PROPRANOLOL ER 80 MG CAP (INDERAL LA) PO SCH (09:39)
--- NOTE | 2021-01-06 10:06 | Cardiology Progress Note ---
Subjective Date Seen by Provider: Jan 06, 2021 Time Seen by Provider: 10:03 Subjective/Events-last exam Patient is in bed, denies any chest pain or dypsnea. Review of Systems General: No Chills, No Night Sweats, No Fatigue, No Malaise, No Appetite, No Other HEENT: No Head Aches, No Visual Changes, No Eye Pain, No Ear Pain, No Dysphasia, No Sinus Congestion, No Post Nasal Drip, No Sore Throat, No Other Pulmonary: No Dyspnea, No Cough, No Pleuritic Chest Pain, No Other Cardiovascular: No: Chest Pain, Palpitations, Orthopnea, Paroxysmal Noc. Dyspnea, Edema, Lt Headedness, Other Objective-Cardiology Exam Last Set of Vital Signs Vital Signs 01/06/21 01/06/21 11:15 13:00 Temp 36.6 Pulse 52 Resp 20 B/P (MAP) 163/79 (107) Pulse Ox 97 O2 Delivery Room Air I&O Intake and Output 01/06/21 00:00 Intake Total 1600 ml Output Total 1750 ml Balance -150 ml Intake Oral 1600 ml Output Urine Total 725 ml Emesis 1025 ml # Voids 3 # Urine Diapers 2 # Bowel Movements 1 Daily Weight Change No General: Alert, Oriented X3, Cooperative HEENT: Atraumatic, PERRLA Neck: Supple, No JVD, No Thyromegaly Lungs: Clear to Auscultation, Normal Air Movement Heart: Regular Rate, Normal S1, Normal S2, No Murmurs Abdomen: Normal Bowel Sounds, Soft Extremities: Other (trace edema) Skin: No Rashes, No Significant Lesion Neuro: Normal Gait, Normal Speech, Cranial Nerves 3-12 NL Psych/Mental Status: Mental Status NL, Mood NL Results Lab Laboratory Tests Test 01/05/21 16:07 01/05/21 20:49 01/06/21 05:33 01/06/21 10:30 Range/Units Glucometer 127 H 128 H 118 H 118 H 70-110 MG/DL A/P-Cardiology Admission Diagnosis Change in mental status Hypertensive emergency Coronary artery disease Palpitation Assessment/Plan Acute change in mental status with hypertensive emergency, blood pressure is better, getting back to baseline slowly. CT scan of the head showed diffuse atrophy. Nonspecific findings. No acute stroke. Hypertension, labile blood pressure due to autonomic dysfunction, malignant hypertension was evaluated in the ER with high blood pressure and TIA, in November, Patient has intolerance to multiple medication, Patient was intolerant to amlodipine due to sinus bradycardia and multiple pauses with first-degree AV block and right bundle branch block. I increased his losartan to 100 mg daily and he is tolerating it well I started clonidine 0.1 mg twice a day and he is tolerating it well Patient is complaining of fatigue and bradycardia, was on propranolol ER 60 mg twice a day. He is concerned about the tremor he has. I instructed him to change his propranolol back to 80 mg once a day and take it in the morning and monitor tolerance and response. History of intolerance to Cozaar with leg pain and cough, intolerance to Micardis with leg and ankle swelling, Lotrel causing swelling and cough, diltiazem was stopped in the past. Now having labile hypertension, will try Clonidine patch and monitor tolerance and responce. Palpitation, has been occurring more frequently recently, planning to evaluate a Holter monitor, I will monitor telemetry for now Coronary artery disease Coronary artery bypass surgery in August 2005 at [facility]. Cardiac catheterization was in March 2007. It showed severe left coronary artery disease. There was a patent graft to an obtuse marginal branch of the left circumflex artery and a patent graft to the distal left anterior descending artery. A saphenous vein graft to the mid left anterior descending artery was occluded. The right coronary artery was dominant and had mild to moderate disease. Left ventricular ejection fraction was 60% and there was minimal localized anterolateral hypokinesis. Left ventricular end-diastolic pressure was normal. Stress test July 2018 revealed no ischemia or infarct. Continue to monitor, no changes are recommended Echocardiogram was done on April 30, 2020 showing normal LV size, EF 55 to 65%, left atrium 5.6 cm, mild MR, PA pressure 35 mmHg. Continue to monitor Holter monitor done in July 2020 showing sinus rhythm with episodes of bradycardia, sinus pauses with escape junctional bradycardia and first-degree AV block with right bundle branch block, occasional PVCs and PACs and short PAT. Sinus node dysfunction, persistent bradycardia and fatigue. Taking propranolol, was intolerant to amlodipine in the past. Continue to monitor History of right bundle branch block. Carotid artery stenosis, hx of L CEA in 2005, CTA of head and neck done Nov 2020 showing bilateral nonobstructive disease Maturity onset diabetes mellitus being managed by Dr. Roberson. Hyperlipidemia, maintained on Lipitor, evaluate lipid profile Chronic tremor treated with beta-jesica therapy, maintained on Inderal and reporting slightly worsening of his tremor when decreasing the dose of Inderal. We will evaluate his response to the lower dose at this time again, being managed by Dr. Roberson. Sleep apnea syndrome; patient does not wish to comply with therapy. Chronic left sided hearing loss Intolerance to LILIAN inhibitors and ARBs due to multiple symptoms, currently tolerating losartan. Bilateral Dupytren's contractures of hands S/p L carpal tunnel surgery by Dr Grider on Oct 30, 2013. Bilateral leg discomfort, but ABIs of 01/06/15 were normal Chronic mild intermittent dependent leg swelling, likely related to venous insuff Patient was seen and evaluated with Lissette, examination performed, management plan was discussed, agree with the current scribed note, I made few changes to the note using Italic font Patient was seen at bedside, laying down comfortably, denied any chest pain Blood pressure is still labile I discussed the management plan with Dr. Roberson decided to try clonidine patch in addition I decreased his losartan to 50 mg and continued Inderal Continue to monitor blood pressure and lipids, monitor renal function Supervisory-Addendum Brief Supervisory Addendum Participated in pt care: history, MDM, physical Personally performed: exam, history, MDM Care discussed with: STANISLAV Results interpretation: Verified all documentation LISSETTE BALTAZAR Jan 06, 2021 10:06 LISANDRO LEGER MD Jan 06, 2021 15:16
--- NOTE | 2021-01-06 10:57 | Physical Therapy Evaluation ---
PT Evaluation-General Medical Diagnosis Admission Date Jan 05, 2021 at 21:05 Medical Diagnosis: hypertensive encephalopathy Onset Date: Jan 05, 2021 Therapy Diagnosis Therapy Diagnosis: impaired mobility, strength, endurance Height/Weight Height (Feet): 6 Height (Inches): 0.00 Weight (Pounds): 230 Weight (Ounces): 0.0 Precautions Precautions/Isolations: Fall Prevention, Standard Precautions Referral Physician: Da Reason for Referral: Evaluation/Treatment Medical History Additional Medical History Past Medical History Surgeries: Cardiac, CABG Coronary Artery Disease, Peripheral Vascular Sexually Transmitted Disease: No Hearing Impairment: Hard of Hearing, Hearing Aide Right Reviewed History: Yes Social History Current Living Status: Spouse Entry Into Home: Stairs Without Railing PT Steps Into Home: 2 Prior Prior Level of Function SCALE: Activities may be completed with or without assistive devices. 9-Jbwnzgzbui-gmcnlzs completes the activity by him/herself with no assistance from a helper. 5-Set-up or Clean-up Assistance-helper sets up or cleans up; patient completes activity. [place] assists only prior to or following the activity. 4-Supervision or Touching Assistance-helper provides verbal cues and/or anca lisa/steadying and/or contact guard assistance as patient completes activity. Assistance may be provided throughout the activity or intermittently. 3-Partial/Moderate Assistance-helper does LESS THAN HALF the effort. [place] lifts, holds or supports trunk or limbs, but provides less than half the effort. 2-Substantial/Maximal Assistance-helper does MORE THAN HALF the effort. [place] lifts or holds trunk or limbs and provides more than half the effort. 8-Zfupdtwbr-hsmmsk does ALL the effort. Patient does none of the effort to complete the activity. Or, the assistance of 2 or more helpers is required for the patient to complete the activity. If activity was not attempted, code reason: 7-Patient Refused. 9-Not Applicable-not attempted and the patient did not perform the activity before the current illness, exacerbation or injury. 10-Not Attempted due to Environmental Limitations-(lack of equipment, weather restraints, etc.). 88-Not Attempted due to Medical Conditions or Safety Concerns. Bed Mobility: 6 Transfers (B,C,W/C): 6 Gait: 6 Indoor Mobility (Ambulation): Independent PT Evaluation-Current Subjective Patient in bed pre tx, agrees to PT, has no complaints of pain. Pt/Family Goals to be independent at home Objective Patient Orientation: Person, Place, Situation ROM/Strength ROM Lower Extremities WNL Strength Lower Extremities LLE (hip flexion 3+/5, knee flexion 4/5, knee extension 4/5, dorsiflexion 4/5), RLE (hip flexion 3+/5, knee flexion 4/5, knee extension 4/5, dorsiflexion 4/5) Sensory Vision: Wears Glasses Hearing: Impaired Sensation Right Lower Extremit: Intact Sensation Left Lower Extremity: Intact Transfers Roll Left to Right (QC): 6 Sit to Lying (QC): 4 Lying to Sitting/Side of Bed(Q: 4 Sit to Stand (QC): 4 Chair/Xkd-bw-Ppssi Xfer(QC): 4 SBA for supine <-> sit, CGA for sit <-> stand and transfers Gait Does the Patient Walk?: Yes Mode of Locomotion: Walk Anticipated Mode of Locomotion: Walk Walk 10 feet (QC): 4 Walk 50 ft with 2 Turns(QC): 4 Walk 150 ft (QC): 4 Distance: 200' Gait Assistive Device: FWW Comments/Gait Description CGA, slow ambulation, slumped posture, needs cues to stand tall Balance Sitting Static: Normal Sitting Dynamic: Normal Standing Static: Fair Standing Dynamic: Fair Treatment BLE supine exercises x20 (AP, HS) Assessment/Needs Patient has impaired mobility, strength, endurance. Patient in bed post tx with nurse call, phone, tray, all needs met. Patient is a little unsteady with ambulation but no LOB Rehab Potential: Fair PT Senior Microstrategy Developer Goals Penitentiary Goals PT Penitentiary Goals Time Frame: Jan 13, 2021 Roll Left & Right (QC): 6 Sit to Lying (QC): 6 Lying-Sitting on Side/Bed(QC): 6 Sit to Stand (QC): 4 (SBA) Chair/Lfh-db-Nsesd Xfer(QC): 4 (SBA) Walk 10 feet (QC): 4 (SBA) Walk 50ft with 2 Turns (QC): 4 (SBA) Walk 150 ft (QC): 4 (SBA) PT Plan Problem List Problem List: Activity Tolerance, Functional Strength, Safety, Balance, Gait, Transfer, Bed Mobility, ROM Treatment/Plan Treatment Plan: Continue Plan of Care Treatment Plan: Bed Mobility, Education, Functional Activity Kortney, Functional Strength, Gait, Safety, Therapeutic Exercise, Transfers Treatment Duration: Jan 13, 2021 Frequency: 6 times per week Estimated Hrs Per Day: .25 hour per day Patient and/or Family Agrees t: Yes Safety Risks/Education Patient Education: Gait Training, Transfer Techniques, Correct Positioning, Safety Issues Teaching Recipient: Patient Teaching Methods: Demonstration, Discussion Response to Teaching: Reinforcement Needed Discharge Recommendations Plan Patient will perform bed mobility and transfer training, balance and endurance training, functional strengthening, stair training, gait training, and education, to improve functional mobility and independence at home. Therapy Discharge Recommendati: Scheduled Assistance, Home & Family, Post Acute PT Time/GCodes Time In: 1012 Time Out: 1026 Total Billed Treatment Time: 14 Total Billed Treatment 1 visit SHAUNA TEJEDA PT Jan 06, 2021 10:57
[2021-01-06 11:15] VITALS: BP 163/79
[2021-01-06 15:49] VITALS: BP 180/81
[2021-01-06] MEDS: ONDANSETRON 4 MG/2 ML (SDV) Z0FRAN IVP PRN (17:45)
[2021-01-06] MEDS ORDERED: LOSARTAN 50 MG (COZAAR) TAB PO NR (19:00)
[2021-01-06 19:56] VITALS: BP 188/89
[2021-01-06] MEDS: ACETAMINOPHEN 500 MG TAB (TYLENOL) PO PRN (20:47)
[2021-01-06] MEDS: AtorvaSTATin TABLET 10 MG TABLET PO SCH (20:47)
[2021-01-06] MEDS: ASPIRIN E.C. 81 MG (ECOTRIN) TAB PO SCH (20:47)
[2021-01-06] MEDS ORDERED: ALPRAZolam 0.25 MG (XANAX) TAB PO PRN (21:00)
[2021-01-07] VITALS: BP 137/62
[2021-01-07 03:00] VITALS: BP 142/68
[2021-01-07] MEDS: CATHETER FLUSH 10 ML SYR IV SCH ×3 (05:53→21:37)
[2021-01-07] MEDS: inSUlin ASPART (NovoLOG) 1 UNIT/0.01 ML (CHARGE PER UNIT) SC SCH ×4 (05:53→20:47)
[2021-01-07] MEDS: metFORMIN XR 500 MG (GLUCOPHAGE XR) TAB PO SCH ×2 (05:53→16:50)
[2021-01-07] MEDS: ASPIRIN E.C. 325 MG (ECOTRIN) TABLET PO SCH (08:00)
[2021-01-07] MEDS: PROPRANOLOL ER 80 MG CAP (INDERAL LA) PO SCH (08:00)
--- NOTE | 2021-01-07 08:12 | Cardiology Progress Note ---
Subjective Date Seen by Provider: Jan 07, 2021 Time Seen by Provider: 08:11 Subjective/Events-last exam Patient is sitting up in chair, eating breakfast. Denies any chest pain or dyspnea. Review of Systems General: No Chills, No Night Sweats; Fatigue; No Malaise, No Appetite, No Other HEENT: No Head Aches, No Visual Changes, No Eye Pain, No Ear Pain, No Dysphasia, No Sinus Congestion, No Post Nasal Drip, No Sore Throat, No Other Pulmonary: No Dyspnea, No Cough, No Pleuritic Chest Pain, No Other Cardiovascular: No: Chest Pain, Palpitations, Orthopnea, Paroxysmal Noc. Dyspnea, Edema, Lt Headedness, Other Objective-Cardiology Exam Last Set of Vital Signs Vital Signs 01/07/21 01/07/21 08:21 08:56 Temp 36.2 Pulse 45 Resp 16 B/P (MAP) 163/77 (105) Pulse Ox 96 O2 Delivery Room Air I&O Intake and Output 01/07/21 00:00 Intake Total 1300 ml Balance 1300 ml Intake Oral 1300 ml # Voids 5 General: Alert, Oriented X3, Cooperative HEENT: Atraumatic, PERRLA Neck: Supple, No JVD, No Thyromegaly Lungs: Clear to Auscultation, Normal Air Movement Heart: Regular Rate, Normal S1, Normal S2, No Murmurs Abdomen: Normal Bowel Sounds, Soft Extremities: Other (trace edema) Skin: No Rashes, No Significant Lesion Neuro: Normal Gait, Normal Speech, Cranial Nerves 3-12 NL Psych/Mental Status: Mental Status NL, Mood NL A/P-Cardiology Admission Diagnosis Change in mental status Hypertensive emergency Coronary artery disease Palpitation Assessment/Plan Acute change in mental status with hypertensive emergency, blood pressure is better, getting back to baseline slowly. CT scan of the head showed diffuse atrophy. Nonspecific findings. No acute stroke. Hypertension, labile blood pressure due to autonomic dysfunction, malignant hypertension was evaluated in the ER with high blood pressure and TIA, in November, Patient has intolerance to multiple medication, Patient was intolerant to amlodipine due to sinus bradycardia and multiple pauses with first-degree AV block and right bundle branch block. I increased his losartan to 100 mg daily and he is tolerating it well I started clonidine 0.1 mg twice a day and he is tolerating it well Patient is complaining of fatigue and bradycardia, was on propranolol ER 60 mg twice a day. He is concerned about the tremor he has. I instructed him to change his propranolol back to 80 mg once a day and take it in the morning and monitor tolerance and response. History of intolerance to Cozaar with leg pain and cough, intolerance to Micardis with leg and ankle swelling, Lotrel causing swelling and cough, diltiazem was stopped in the past. Now having labile hypertension, will try Clonidine patch and monitor tolerance and responce. Palpitation, has been occurring more frequently recently, I will monitor telemetry for now Sinus node dysfunction with persistent sinus bradycardia, complaining of fatigue, has been on propranolol, intolerant to amlodipine in the past. Hesitant to stop propranolol due to his tremor. I will hold it for now and monitor. We discussed the possibility of pacemaker if we need to be more aggressive with beta-blockers or calcium channel blockers. I am hesitant to consider it due to his advanced age and minimal symptoms Coronary artery disease Coronary artery bypass surgery in August 2005 at [facility]. Cardiac catheterization was in March 2007. It showed severe left coronary artery disease. There was a patent graft to an obtuse marginal branch of the left circumflex artery and a patent graft to the distal left anterior descending artery. A saphenous vein graft to the mid left anterior descending artery was occluded. The right coronary artery was dominant and had mild to moderate disease. Left ventricular ejection fraction was 60% and there was minimal localized anterolateral hypokinesis. Left ventricular end-diastolic pressure was normal. Stress test July 2018 revealed no ischemia or infarct. Continue to monitor, no changes are recommended Echocardiogram was done on April 30, 2020 showing normal LV size, EF 55 to 65%, left atrium 5.6 cm, mild MR, PA pressure 35 mmHg. Continue to monitor Holter monitor done in July 2020 showing sinus rhythm with episodes of bradycardia, sinus pauses with escape junctional bradycardia and first-degree AV block with right bundle branch block, occasional PVCs and PACs and short PAT. History of right bundle branch block. Carotid artery stenosis, hx of L CEA in 2005, CTA of head and neck done Nov 2020 showing bilateral nonobstructive disease Maturity onset diabetes mellitus being managed by Dr. Roberson. Hyperlipidemia, maintained on Lipitor, evaluate lipid profile Chronic tremor treated with beta-jesica therapy, maintained on Inderal and reporting slightly worsening of his tremor when decreasing the dose of Inderal. We will evaluate his response to the lower dose at this time again, being managed by Dr. Roberson. Sleep apnea syndrome; patient does not wish to comply with therapy. Chronic left sided hearing loss Intolerance to LILIAN inhibitors and ARBs due to multiple symptoms, currently tolerating losartan. Bilateral Dupytren's contractures of hands S/p L carpal tunnel surgery by Dr Grider on Oct 30, 2013. Bilateral leg discomfort, but ABIs of 01/06/15 were normal Chronic mild intermittent dependent leg swelling, likely related to venous insuff Supervisory-Addendum Brief Supervisory Addendum Participated in pt care: history, MDM, physical Personally performed: exam, history, MDM Care discussed with: STANISLAV Results interpretation: Verified all documentation Notes: Patient was seen and evaluated with Lissette, examination performed, management plan was discussed, agree with the current scribed note, I made few changes to the note using Italic font LISSETTE BALTAZAR Jan 07, 2021 08:12 LISANDRO LEGER MD Jan 07, 2021 09:11
[2021-01-07 08:21] VITALS: BP 163/77
--- NOTE | 2021-01-07 10:06 | Physical Therapy Progress Note ---
Therapy Progress Note Patient adamantly declined PT intervention stating, "I'm up by myself in my room and I don't need PT." RN present and states that the report that he was given stated such. Physician notified. No PT indicated at this time. 1 ref ([id number]) TIARRA ENCARNACION PT Jan 07, 2021 10:06
--- NOTE | 2021-01-07 10:10 | Physical Therapy Daily Note ---
PT Daily Note-Current Subjective Patient agrees to PT. Very well known by this therapist. Mental Status Patient Orientation: Normal For Age Transfers SCALE: Activities may be completed with or without assistive devices. 1-Yxjqgsjzrl-iuknxli completes the activity by him/herself with no assistance from a helper. 5-Set-up or Clean-up Assistance-helper sets up or cleans up; patient completes activity. [place] assists only prior to or following the activity. 4-Supervision or Touching Assistance-helper provides verbal cues and/or to uching/steadying and/or contact guard assistance as patient completes activity. Assistance may be provided throughout the activity or intermittently. 3-Partial/Moderate Assistance-helper does LESS THAN HALF the effort. [place] lifts, holds or supports trunk or limbs, but provides less than half the effort. 2-Substantial/Maximal Assistance-helper does MORE THAN HALF the effort. [place] lifts or holds trunk or limbs and provides more than half the effort. 7-Wpgdzsiee-oduitw does ALL the effort. Patient does none of the effort to complete the activity. Or, the assistance of 2 or more helpers is required for the patient to complete the activity. If activity was not attempted, code reason: 7-Patient Refused. 9-Not Applicable-not attempted and the patient did not perform the activity before the current illness, exacerbation or injury. 10-Not Attempted due to Environmental Limitations-(lack of equipment, weather restraints, etc.). 88-Not Attempted due to Medical Conditions or Safety Concerns. Sit to Stand (QC): 5 Gait Training Does the Patient Walk?: Yes Distance: 600' Walk 10 feet (QC): 4 (SBA) Walk 50 ft with 2 Turns(QC): 4 (SBA) Walk 150 ft (QC): 4 (SBA) Gait Assistive Device: FWW VC's for body placement in FWW/safe and functional gait sequence Assessment Patient remains up in recliner with needs met. Increase activity as tolerated by patient. PT Base Engineer Goals Alf Goals PT Base Engineer Goals Time Frame: Jan 13, 2021 Roll Left & Right (QC): 6 Sit to Lying (QC): 6 Lying-Sitting on Side/Bed(QC): 6 Sit to Stand (QC): 4 (SBA) Chair/Hka-kg-Entwd Xfer(QC): 4 (SBA) Walk 10 feet (QC): 4 (SBA) Walk 50ft with 2 Turns (QC): 4 (SBA) Walk 150 ft (QC): 4 (SBA) PT Plan Treatment/Plan Treatment Plan: Continue Plan of Care Treatment Plan: Bed Mobility, Education, Functional Activity Kortney, Functional Strength, Gait, Safety, Therapeutic Exercise, Transfers Treatment Duration: Jan 13, 2021 Frequency: 6 times per week Estimated Hrs Per Day: .25 hour per day Patient and/or Family Agrees t: Yes Time/GCodes Time In: 927 Time Out: 945 Total Billed Treatment Time: 18 Total Billed Treatment 1 visit FA 18 min TIARRA ENCARNACION PT Jan 07, 2021 10:10
[2021-01-07 11:11] VITALS: BP_SYST 176; BP_SYST 195; BP_DIAS 68; BP_DIAS 74
[2021-01-07] MEDS: LOSARTAN 100 MG (COZAAR) TABLET PO SCH (12:48)
[2021-01-07 16:00] VITALS: BP 129/69
[2021-01-07 20:31] VITALS: BP 168/77
[2021-01-07] MEDS ORDERED: ALPRAZolam 0.25 MG (XANAX) TAB PO PRN (21:00)
[2021-01-07] MEDS: DIPHENHYDRAMINE PO SCH (21:34)
[2021-01-07] MEDS: ACETAMINOPHEN PO SCH (21:34)
[2021-01-07] MEDS: ASPIRIN E.C. 81 MG (ECOTRIN) TAB PO SCH (21:35)
[2021-01-07] MEDS: AtorvaSTATin TABLET 10 MG TABLET PO SCH (21:36)
[2021-01-08] VITALS (7 sets, daily range): BP systolic 145–189; BP diastolic 61–78
[2021-01-08] MEDS: CATHETER FLUSH 10 ML SYR IV SCH ×4 (06:12→21:01)
[2021-01-08] MEDS: inSUlin ASPART (NovoLOG) 1 UNIT/0.01 ML (CHARGE PER UNIT) SC SCH ×4 (06:14→21:40)
[2021-01-08] MEDS: metFORMIN XR 500 MG (GLUCOPHAGE XR) TAB PO SCH ×2 (06:28→17:47)
[2021-01-08] MEDS: LOSARTAN 100 MG (COZAAR) TABLET PO SCH (08:07)
[2021-01-08] MEDS: ASPIRIN E.C. 325 MG (ECOTRIN) TABLET PO SCH (08:08)
[2021-01-08] MEDS ORDERED: cloNIDine 0.1 MG PATCH (CATAPRES TTS) TDSY TD ONE (10:30)
--- NOTE | 2021-01-08 10:57 | Physical Therapy Daily Note ---
PT Daily Note-Current Subjective Patient agrees to PT. No c/o. Mental Status Patient Orientation: Normal For Age Transfers SCALE: Activities may be completed with or without assistive devices. 8-Foxgjhlhzt-rgvvzir completes the activity by him/herself with no assistance from a helper. 5-Set-up or Clean-up Assistance-helper sets up or cleans up; patient completes activity. [place] assists only prior to or following the activity. 4-Supervision or Touching Assistance-helper provides verbal cues and/or touching/steadying and/or contact guard assistance as patient completes activity. Assistance may be provided throughout the activity or intermittently. 3-Partial/Moderate Assistance-helper does LESS THAN HALF the effort. [place] lifts, holds or supports trunk or limbs, but provides less than half the effort. 2-Substantial/Maximal Assistance-helper does MORE THAN HALF the effort. [place] lifts or holds trunk or limbs and provides more than half the effort. 7-Dtgihtigt-idgjiz does ALL the effort. Patient does none of the effort to c omplete the activity. Or, the assistance of 2 or more helpers is required for the patient to complete the activity. If activity was not attempted, code reason: 7-Patient Refused. 9-Not Applicable-not attempted and the patient did not perform the activity before the current illness, exacerbation or injury. 10-Not Attempted due to Environmental Limitations-(lack of equipment, weather restraints, etc.). 88-Not Attempted due to Medical Conditions or Safety Concerns. Sit to Stand (QC): 6 Gait Training Does the Patient Walk?: Yes Distance: 550' Walk 10 feet (QC): 6 Walk 50 ft with 2 Turns(QC): 6 Walk 150 ft (QC): 6 Gait Assistive Device: FWW trunk flexed posture with FWW use with VC's to correct posture Exercises Seated Therapy Exercises: Ankle pumps, Long arc quads, Hip flexion Seated Reps: 15 Assessment Spouse present and PT instructed spouse and RN to have patient ambulate PRN in hallway to increase activity. PT Care Aide Goals Care Aide Goals PT Care Aide Goals Time Frame: Jan 13, 2021 Roll Left & Right (QC): 6 Sit to Lying (QC): 6 Lying-Sitting on Side/Bed(QC): 6 Sit to Stand (QC): 4 (SBA) Chair/Egy-ge-Saomw Xfer(QC): 4 (SBA) Walk 10 feet (QC): 4 (SBA) Walk 50ft with 2 Turns (QC): 4 (SBA) Walk 150 ft (QC): 4 (SBA) PT Plan Treatment/Plan Treatment Plan: Continue Plan of Care Treatment Plan: Bed Mobility, Education, Functional Activity Kortney, Functional Strength, Gait, Safety, Therapeutic Exercise, Transfers Treatment Duration: Jan 13, 2021 Frequency: 6 times per week Estimated Hrs Per Day: .25 hour per day Patient and/or Family Agrees t: Yes Time/GCodes Time In: 900 Time Out: 916 Total Billed Treatment Time: 16 Total Billed Treatment 1 visit FA 16 min TIARRA ENCARNACION PT Jan 08, 2021 10:57
--- NOTE | 2021-01-08 11:22 | Progress Note ---
Subjective Subjective Date Seen by Provider: Jan 07, 2021 Time Seen by Provider: 08:30 LATE ENTRY NOTE - PT SEEN IN THE HOSPITAL, BUT NOTE NOT SAVED PRIOR TO LOGGING OFF OF SYSTEM. PT REPORTS THAT HE IS MORE FATIGUED THIS MORNING 01/07/2021. DISCUSSION WITH DR. LEGER- WOULD LIKE TO HAVE PT OFF OF PROPRANOLOL TO SEE HOW HIS HEART RATE RESPONDS - HOWEVER, PT GOT HIS ONE TIME DAILY DOSE OF PROPRANOLOL PRIOR TO DR. LEGER SEEING THE PT. Review of Systems General: No Chills, No Night Sweats; Fatigue; No Malaise, No Appetite, No Other HEENT: No Head Aches, No Visual Changes, No Eye Pain, No Ear Pain, No Dysphasia, No Sinus Congestion, No Post Nasal Drip, No Sore Throat, No Other Pulmonary: No Dyspnea, No Cough, No Pleuritic Chest Pain, No Other Cardiovascular: No: Chest Pain, Palpitations, Orthopnea, Paroxysmal Noc. Dyspnea, Edema, Lt Headedness, Other All Other Systems Reviewed All Other Systems Reviewed: Yes Objective Exam Vital Signs Vital Signs Date Time Temp Pulse Resp B/P (MAP) Pulse Ox O2 Delivery O2 Flow Rate FiO2 01/08/21 11:03 36.8 57 18 161/61 (94) 97 Room Air 01/08/21 10:24 36.8 57 18 161/61 (94) 97 Room Air 01/08/21 09:00 96 Room Air 01/08/21 07:31 36.7 51 18 189/76 (113) 98 Room Air 01/08/21 07:00 50 01/08/21 04:00 36.8 55 18 160/70 (100) 94 Room Air 01/08/21 01:00 48 01/08/21 00:00 36.7 47 18 145/64 (91) 99 Room Air 01/07/21 21:00 96 Room Air 01/07/21 20:31 36.8 48 20 168/77 (107) 97 Room Air 01/07/21 19:00 51 01/07/21 16:00 36.8 51 18 129/69 (89) 96 Room Air 01/07/21 12:45 46 I & O 01/08/21 07:00 Intake Total 1432 ml Balance 1432 ml General Appearance: No Apparent Distress, WD/WN Eyes: Bilateral Eye Normal Inspection, Bilateral Eye PERRL, Bilateral Eye EOMI HEENT: PERRL/EOMI, Pharynx Normal Neck: Full Range of Motion, Supple Respiratory: Chest Non Tender, Lungs Clear, Normal Breath Sounds, No Accessory Muscle Use, No Respiratory Distress Cardiovascular: Bradycardia, Systolic Murmur Gastrointestinal: Normal Bowel Sounds, Non Tender, Soft Rectal: Deferred Back: Normal Inspection Extremity: Normal Capillary Refill, Non Tender, No Calf Tenderness, Pedal Edema (trace) Neurologic/Psychiatric: Alert, Oriented x3, Normal Mood/Affect Skin: Normal Color, Warm/Dry Lymphatic: No Adenopathy Results Lab Laboratory Tests 01/07/21 16:18: Glucometer 120H 01/07/21 20:35: Glucometer 117H 01/08/21 06:00: Glucometer 91 01/08/21 10:24: Glucometer 183H Assessment/Plan Assessment/Plan Admission Dx HYPERTENSIVE ENCEPHALOPATHY HYPERTENSION CORONARY ARTERY DISEASE DIABETES MELLITUS WEAKNESS FATIGUE HEADACHE Assessment and Plan HYPERTENSIVE ENCEPHALOPATHY HYPERTENSION CORONARY ARTERY DISEASE DIABETES MELLITUS WEAKNESS FATIGUE HEADACHE BRADYCARDIA HYPERTENSIVE ENCEPHALOPATHY WITH LABILE HYPERTENSION - DISCUSSED WITH CARDIOLOGY - PT HAS BEEN SEEN MULTIPLE TIMES IN THE CARDIOLOGY CLINIC WITH ELEVATED BP WHICH DOES NOT SEEM TO RESPOND WELL TO MEDS - MONITOR BP, ADJUST MEDICATIONS. WILL NEED MORE TIME IN THE HOSPITAL FOR STABILIZATION OF HIS BP AND FOR FURTHER WORK-UP. BRADYCARDIA - HOLD PROPRANOLOL DOSE TOMORROW MORNING, MONITOR PRESSURES AND HEART RATE. CORONARY ARTERY DISEASE - RESUMED PARTIAL HOME REGIMEN, DEFER TO DR. LEGER DIABETES MELLITUS - RESUMED METFORMIN WEAKNESS AND FATIGUE - THERAPY INITIATED. HEADACHE - DUE TO HTN DVT PROPHYLAXIS WITH LOVENOX AND SCD'S GI PROPHYLAXIS WITH PEPCID. Admission Dx HYPERTENSIVE ENCEPHALOPATHY HYPERTENSION CORONARY ARTERY DISEASE DIABETES MELLITUS WEAKNESS FATIGUE HEADACHE Clinical Quality Measures Admission Status Admission Dx HYPERTENSIVE ENCEPHALOPATHY HYPERTENSION CORONARY ARTERY DISEASE DIABETES MELLITUS WEAKNESS FATIGUE HEADACHE Stroke: Date of last known well: Jan 04, 2021 Time of last known well: 19:30 Symptoms onset unknown: No JOSH MORENO MD Jan 08, 2021 11:22
--- NOTE | 2021-01-08 14:07 | Cardiology Progress Note ---
Subjective Date Seen by Provider: Jan 08, 2021 Time Seen by Provider: 14:05 Subjective/Events-last exam Patient was seen at bedside, sitting comfortably, eating lunch. Denied any chest pain Review of Systems General: No Chills, No Night Sweats, No Fatigue, No Malaise, No Appetite, No Other HEENT: No Head Aches, No Visual Changes, No Eye Pain, No Ear Pain, No Dysphasia, No Sinus Congestion, No Post Nasal Drip, No Sore Throat, No Other Pulmonary: No Dyspnea, No Cough, No Pleuritic Chest Pain, No Other Cardiovascular: No: Chest Pain, Palpitations, Orthopnea, Paroxysmal Noc. Dyspnea, Edema, Lt Headedness, Other Objective-Cardiology Exam Last Set of Vital Signs Vital Signs 01/08/21 01/08/21 11:03 12:52 Temp 36.8 Pulse 50 Resp 18 B/P (MAP) 161/61 (94) Pulse Ox 97 O2 Delivery Room Air I&O Intake and Output 01/08/21 00:00 Intake Total 1882 ml Balance 1882 ml Intake Oral 1882 ml # Voids 9 General: Alert, Oriented X3, Cooperative HEENT: Atraumatic, PERRLA Neck: Supple, No JVD, No Thyromegaly Lungs: Clear to Auscultation, Normal Air Movement Heart: Regular Rate, Normal S1, Normal S2, No Murmurs Abdomen: Normal Bowel Sounds, Soft Extremities: Other (trace edema) Skin: No Rashes, No Significant Lesion Neuro: Normal Gait, Normal Speech, Cranial Nerves 3-12 NL Psych/Mental Status: Mental Status NL, Mood NL A/P-Cardiology Admission Diagnosis Change in mental status Hypertensive emergency Coronary artery disease Palpitation Assessment/Plan Status post acute change in mental status with hypertensive emergency, blood pressure is better, getting back to baseline slowly. CT scan of the head showed diffuse atrophy. Nonspecific findings. No acute stroke. Hypertension, labile blood pressure due to autonomic dysfunction, malignant hypertension was evaluated in the ER with high blood pressure and TIA, in November, Patient has intolerance to multiple medication, Patient was intolerant to amlodipine due to sinus bradycardia and multiple pauses with first-degree AV block and right bundle branch block. I increased his losartan to 100 mg daily and he is tolerating it well I started clonidine 0.1 mg twice a day and he is tolerating it well Patient is complaining of fatigue and bradycardia, was on propranolol ER 60 mg twice a day. He is concerned about the tremor he has. I instructed him to change his propranolol back to 80 mg once a day and take it in the morning and monitor tolerance and response. History of intolerance to Cozaar with leg pain and cough, intolerance to Micardis with leg and ankle swelling, Lotrel causing swelling and cough, diltiazem was stopped in the past. Patient requested to restart propranolol, very concerned about tremor. I will restart propranolol 60 mg daily I will increase hydralazine to 25 mg every 6 hours and evaluate tolerance and response Palpitation, has been occurring more frequently recently, I will monitor telemetry for now Sinus node dysfunction with persistent sinus bradycardia, complaining of fatigue, has been on propranolol, intolerant to amlodipine in the past. I have stopped propranolol, patient requested to restart the medication he is very concerned about his tremor. I will restart propranolol ER at 60 mg daily and evaluate tolerance and response Coronary artery disease Coronary artery bypass surgery in August 2005 at [facility]. Cardiac catheterization was in March 2007. It showed severe left coronary artery disease. There was a patent graft to an obtuse marginal branch of the left circumflex artery and a patent graft to the distal left anterior descending artery. A saphenous vein graft to the mid left anterior descending artery was occluded. The right coronary artery was dominant and had mild to moderate diseas e. Left ventricular ejection fraction was 60% and there was minimal localized anterolateral hypokinesis. Left ventricular end-diastolic pressure was normal. Stress test July 2018 revealed no ischemia or infarct. Continue to monitor, no changes are recommended Echocardiogram was done on April 30, 2020 showing normal LV size, EF 55 to 65%, left atrium 5.6 cm, mild MR, PA pressure 35 mmHg. Continue to monitor Holter monitor done in July 2020 showing sinus rhythm with episodes of bradycardia, sinus pauses with escape junctional bradycardia and first-degree AV block with right bundle branch block, occasional PVCs and PACs and short PAT. History of right bundle branch block. Carotid artery stenosis, hx of L CEA in 2005, CTA of head and neck done Nov 2020 showing bilateral nonobstructive disease Maturity onset diabetes mellitus being managed by Dr. Roberson. Hyperlipidemia, maintained on Lipitor, evaluate lipid profile Chronic tremor treated with beta-jesica therapy, maintained on Inderal and reporting slightly worsening of his tremor when decreasing the dose of Inderal. We will evaluate his response to the lower dose at this time again, being managed by Dr. Roberson. Sleep apnea syndrome; patient does not wish to comply with therapy. Chronic left sided hearing loss Intolerance to LILIAN inhibitors and ARBs due to multiple symptoms, currently tolerating losartan. Bilateral Dupytren's contractures of hands S/p L carpal tunnel surgery by Dr Grider on Oct 30, 2013. Bilateral leg discomfort, but ABIs of 01/06/15 were normal Chronic mild intermittent dependent leg swelling, likely related to venous insuff LISANDRO LEGER MD Jan 08, 2021 14:07
[2021-01-08] MEDS: PROPRANOLOL ER 60 MG CAP (INDERAL LA) PO SCH (14:40)
--- NOTE | 2021-01-08 14:47 | Progress Note ---
Subjective Subjective Date Seen by Provider: Jan 08, 2021 Time Seen by Provider: 10:00 PT REPORTS THAT HE IS FEELING A LITTLE BETTER THIS MORNING, BUT STILL HAS INTERMITTENT HEADACHE. HE REPORTS THAT HE USUALLY HAS BOWEL MOVEMENTS EVERY 2 - 3 DAYS - HE DENIES ABDOMINAL PAIN. PHYSICAL THERAPY REPORTS THAT HE IS MOVING WELL, WALKING FAIRLY WELL, BUT WOULD BENEFIT FROM OUTPATIENT PHYSICAL THERAPY FOR STRENGTHENING. ARIANNE DENIES A WORSENING OF HIS TREMOR AT THIS TIME. Review of Systems General: No Chills, No Night Sweats; Fatigue; No Malaise, No Appetite, No Other HEENT: Head Aches; No Dysphasia, No Post Nasal Drip, No Sore Throat Pulmonary: No Dyspnea, No Cough, No Pleuritic Chest Pain Cardiovascular: No: Chest Pain, Palpitations, Orthopnea, Edema Gastrointestinal: No: Nausea, Abdominal Pain Genitourinary: No Dysuria Musculoskeletal: No: neck pain, back pain Neurological: Weakness, Other All Other Systems Reviewed All Other Systems Reviewed: Yes Objective Exam Vital Signs Vital Signs Date Time Temp Pulse Resp B/P (MAP) Pulse Ox O2 Delivery O2 Flow Rate FiO2 01/08/21 12:52 50 01/08/21 11:03 36.8 57 18 161/61 (94) 97 Room Air 01/08/21 10:24 36.8 57 18 161/61 (94) 97 Room Air 01/08/21 09:00 96 Room Air 01/08/21 07:31 36.7 51 18 189/76 (113) 98 Room Air 01/08/21 07:00 50 01/08/21 04:00 36.8 55 18 160/70 (100) 94 Room Air 01/08/21 01:00 48 01/08/21 00:00 36.7 47 18 145/64 (91) 99 Room Air 01/07/21 21:00 96 Room Air 01/07/21 20:31 36.8 48 20 168/77 (107) 97 Room Air 01/07/21 19:00 51 01/07/21 16:00 36.8 51 18 129/69 (89) 96 Room Air I & O 01/08/21 07:00 Intake Total 1432 ml Balance 1432 ml General Appearance: No Apparent Distress, WD/WN Eyes: Bilateral Eye Normal Inspection, Bilateral Eye PERRL, Bilateral Eye EOMI HEENT: PERRL/EOMI, Pharynx Normal Neck: Full Range of Motion, Supple Respiratory: Chest Non Tender, Lungs Clear, Normal Breath Sounds, No Accessory Muscle Use, No Respiratory Distress Cardiovascular: Bradycardia, Systolic Murmur Gastrointestinal: Normal Bowel Sounds, Non Tender, Soft Rectal: Deferred Back: Normal Inspection Extremity: Normal Capillary Refill, Non Tender, No Calf Tenderness, Pedal Edema (trace) Neurologic/Psychiatric: Alert, Oriented x3, Normal Mood/Affect Skin: Normal Color, Warm/Dry Lymphatic: No Adenopathy Results Lab Laboratory Tests 01/07/21 16:18: Glucometer 120H 01/07/21 20:35: Glucometer 117H 01/08/21 06:00: Glucometer 91 01/08/21 10:24: Glucometer 183H 01/08/21 12:47: Glucometer 127H Assessment/Plan Assessment/Plan Admission Dx HYPERTENSIVE ENCEPHALOPATHY HYPERTENSION CORONARY ARTERY DISEASE DIABETES MELLITUS WEAKNESS FATIGUE HEADACHE Assessment and Plan HYPERTENSIVE ENCEPHALOPATHY HYPERTENSION CORONARY ARTERY DISEASE DIABETES MELLITUS WEAKNESS FATIGUE HEADACHE BRADYCARDIA HYPERTENSIVE ENCEPHALOPATHY WITH LABILE HYPERTENSION - DISCUSSED WITH CARDIOLOGY - PT HAS BEEN SEEN MULTIPLE TIMES IN THE CARDIOLOGY CLINIC WITH ELEVATED BP WHICH DOES NOT SEEM TO RESPOND WELL TO MEDS - ADDED CLONIDINE PATCH, DR. LEGER ADDED HYDRALAZINE - MONITOR BP, ADJUST MEDICATIONS. WILL NEED MORE TIME IN THE HOSPITAL FOR STABILIZATION OF HIS BP AND FOR FURTHER WORK-UP. BRADYCARDIA - HOLD PROPRANOLOL DOSE AGAIN TOMORROW MORNING, MONITOR PRESSURES AND HEART RATE. CORONARY ARTERY DISEASE - RESUMED PARTIAL HOME REGIMEN, DEFER TO DR. LEGER DIABETES MELLITUS - RESUMED METFORMIN WEAKNESS AND FATIGUE - THERAPY INITIATED. HEADACHE - DUE TO HTN DVT PROPHYLAXIS WITH LOVENOX AND SCD'S GI PROPHYLAXIS WITH PEPCID. Admission Dx HYPERTENSIVE ENCEPHALOPATHY HYPERTENSION CORONARY ARTERY DISEASE DIABETES MELLITUS WEAKNESS FATIGUE HEADACHE Clinical Quality Measures Admission Status Admission Dx HYPERTENSIVE ENCEPHALOPATHY HYPERTENSION CORONARY ARTERY DISEASE DIABETES MELLITUS WEAKNESS FATIGUE HEADACHE Stroke: Date of last known well: Jan 04, 2021 Time of last known well: 19:30 Symptoms onset unknown: No JOSH MORENO MD Jan 08, 2021 14:47
[2021-01-08] MEDS: AtorvaSTATin TABLET 10 MG TABLET PO SCH (20:49)
[2021-01-08] MEDS: ACETAMINOPHEN 500 MG TAB (TYLENOL) PO PRN (20:49)
[2021-01-08] MEDS: ASPIRIN E.C. 81 MG (ECOTRIN) TAB PO SCH (20:54)
[2021-01-08] MEDS: hydrALAZINE (APRESOLINE) 25 MG TAB PO SCH (21:00)
[2021-01-08] MEDS: ACETAMINOPHEN PO SCH (21:03)
[2021-01-08] MEDS: DIPHENHYDRAMINE PO SCH (21:03)
[2021-01-09] VITALS (10 sets, daily range): BP systolic 133–211; BP diastolic 64–92
[2021-01-09] MEDS: metFORMIN XR 500 MG (GLUCOPHAGE XR) TAB PO SCH ×2 (06:46→17:50)
[2021-01-09] MEDS: inSUlin ASPART (NovoLOG) 1 UNIT/0.01 ML (CHARGE PER UNIT) SC SCH ×4 (06:46→20:41)
[2021-01-09] MEDS: CATHETER FLUSH 10 ML SYR IV SCH ×3 (06:48→22:26)
[2021-01-09] MEDS: hydrALAZINE (APRESOLINE) 25 MG TAB PO SCH (06:49)
[2021-01-09] MEDS: LOSARTAN 100 MG (COZAAR) TABLET PO SCH (08:07)
[2021-01-09] MEDS: ASPIRIN E.C. 325 MG (ECOTRIN) TABLET PO SCH (08:07)
[2021-01-09] MEDS: PROPRANOLOL ER 60 MG CAP (INDERAL LA) PO SCH (09:38)
[2021-01-09] MEDS ORDERED: PATIENT MAY USE OWN MEDS, ALL MC SCH (10:15)
--- NOTE | 2021-01-09 10:18 | Cardiology Progress Note ---
Subjective Date Seen by Provider: Jan 09, 2021 Time Seen by Provider: 10:17 Subjective/Events-last exam Patient is feeling well, still having difficulty achieving adequate blood p ressure control I checked his blood pressure at bedside today and it was 200/90 Review of Systems General: No Chills, No Night Sweats; Fatigue; No Malaise, No Appetite, No Other HEENT: No Head Aches, No Visual Changes, No Eye Pain, No Ear Pain, No Dysphasia, No Sinus Congestion, No Post Nasal Drip, No Sore Throat, No Other Pulmonary: No Dyspnea, No Cough, No Pleuritic Chest Pain, No Other Cardiovascular: No: Chest Pain, Palpitations, Orthopnea, Paroxysmal Noc. Dyspnea, Edema, Lt Headedness, Other Objective-Cardiology Exam Last Set of Vital Signs Vital Signs 01/09/21 01/09/21 01/09/21 07:41 09:15 09:22 Temp 36.7 Pulse 49 Resp 18 B/P (MAP) 200/75 (116) Pulse Ox 96 O2 Delivery Room Air I&O Intake and Output 01/09/21 00:00 Intake Total 1610 ml Balance 1610 ml Intake Oral 1610 ml # Voids 11 General: Alert, Oriented X3, Cooperative HEENT: Atraumatic, PERRLA Neck: Supple, No JVD, No Thyromegaly Lungs: Clear to Auscultation, Normal Air Movement Heart: Regular Rate, Normal S1, Normal S2, No Murmurs Abdomen: Normal Bowel Sounds, Soft Extremities: Other (trace edema) Skin: No Rashes, No Significant Lesion Neuro: Normal Gait, Normal Speech, Cranial Nerves 3-12 NL Psych/Mental Status: Mental Status NL, Mood NL Results Lab Laboratory Tests Test 01/08/21 10:24 01/08/21 12:47 01/08/21 15:43 01/08/21 19:17 Range/Units Glucometer 183 H 127 H 71 110 70-110 MG/DL Test 01/08/21 20:41 01/09/21 06:44 Range/Units Glucometer 133 H 102 70-110 MG/DL A/P-Cardiology Admission Diagnosis Change in mental status Hypertensive emergency Coronary artery disease Palpitation Assessment/Plan Status post acute change in mental status with hypertensive emergency, blood pressure is better, getting back to baseline slowly. CT scan of the head showed diffuse atrophy. Nonspecific findings. No acute stroke. Hypertension, labile blood pressure due to autonomic dysfunction, malignant hypertension was evaluated in the ER with high blood pressure and TIA, in November, Patient has intolerance to multiple medication, Patient was intolerant to amlodipine due to sinus bradycardia and multiple pauses with first-degree AV block and right bundle branch block. I increased his losartan to 100 mg daily and he is tolerating it well I started clonidine 0.1 mg twice a day and he is tolerating it well Patient is complaining of fatigue and bradycardia, was on propranolol ER 60 mg twice a day. He is concerned about the tremor he has. I instructed him to change his propranolol back to 80 mg once a day and take it in the morning and monitor tolerance and response. History of intolerance to Cozaar with leg pain and cough, intolerance to Micardis with leg and ankle swelling, Lotrel causing swelling and cough, d iltiazem was stopped in the past. I will increase hydralazine to 50 mg every 8 hours and evaluate tolerance and response The next step will be increasing clonidine to 0.2 mg patch Palpitation, has been occurring more frequently recently, I will monitor telemetry for now Sinus node dysfunction with persistent sinus bradycardia, complaining of fatigue, has been on propranolol, intolerant to amlodipine in the past. I have stopped propranolol, patient requested to restart the medication he is very concerned about his tremor. I will restart propranolol ER at 60 mg daily and evaluate tolerance and response Coronary artery disease Coronary artery bypass surgery in August 2005 at [facility]. Cardiac catheterization was in March 2007. It showed severe left coronary artery disease. There was a patent graft to an obtuse marginal branch of the left circumflex artery and a patent graft to the distal left anterior descending artery. A saphenous vein graft to the mid left anterior descending artery was occluded. The right coronary artery was dominant and had mild to moderate disease. Left ventricular ejection fraction was 60% and there was minimal localized anterolateral hypokinesis. Left ventricular end-diastolic pressure was normal. Stress test July 2018 revealed no ischemia or infarct. Continue to monitor, no changes are recommended Echocardiogram was done on April 30, 2020 showing normal LV size, EF 55 to 65%, left atrium 5.6 cm, mild MR, PA pressure 35 mmHg. Continue to monitor Holter monitor done in July 2020 showing sinus rhythm with episodes of bradycardia, sinus pauses with escape junctional bradycardia and first-degree AV block with right bundle branch block, occasional PVCs and PACs and short PAT. History of right bundle branch block. Carotid artery stenosis, hx of L CEA in 2005, CTA of head and neck done Nov 2020 showing bilateral nonobstructive disease Maturity onset diabetes mellitus being managed by Dr. Roberson. Hyperlipidemia, maintained on Lipitor, evaluate lipid profile Chronic tremor treated with beta-jesica therapy, maintained on Inderal and reporting slightly worsening of his tremor when decreasing the dose of Inderal. We will evaluate his response to the lower dose at this time again, being managed by Dr. Roberson. Sleep apnea syndrome; patient does not wish to comply with therapy. Chronic left sided hearing loss Intolerance to LILIAN inhibitors and ARBs due to multiple symptoms, currently tolerating losartan. Bilateral Dupytren's contractures of hands S/p L carpal tunnel surgery by Dr Grider on Oct 30, 2013. Bilateral leg discomfort, but ABIs of 01/06/15 were normal Chronic mild intermittent dependent leg swelling, likely related to venous insuff LISANDRO LEGER MD Jan 09, 2021 10:18
[2021-01-09] MEDS ORDERED: DOCUSATE SODIUM 100 MG (COLACE) CAP PO ONE (11:45)
[2021-01-09] MEDS ORDERED: polyethylene glycoL POWDER 17 GM (MIRALAX) PACK PO PRN (11:45)
[2021-01-09] MEDS ORDERED: polyethylene glycoL POWDER 17 GM (MIRALAX) PACK PO ONE (11:45)
[2021-01-09] MEDS ORDERED: SENNA W/DOCUSATE (SENOKOT S) TABLET PO ONE (11:45)
[2021-01-09] MEDS: hydrALAZINE (APESOLINE) 20 MG/ML VIAL IV PRN ×3 (12:48→23:04)
[2021-01-09] MEDS ORDERED: hydrALAZINE (APRESOLINE) 25 MG TAB PO SCH ×2 (14:00→22:00)
[2021-01-09] MEDS ORDERED: hydrALAZINE (APESOLINE) 20 MG/ML VIAL IV ONE (17:00)
[2021-01-09] MEDS ORDERED: cloNIDine 0.2 MG PATCH (CATAPRES TTS) TDSY TD ONE ×2 (17:00→17:15)
--- NOTE | 2021-01-09 18:36 | Progress Note - Hospitalist ---
Subjective HPI/CC On Admission Date Seen by Provider: Jan 09, 2021 Time Seen by Provider: 11:30 Subjective/Events-last exam He is feeling well today. He is not having a headache. He is not having any confusion. He is sitting in his chair. His is present. Objective Exam Vital Signs Vital Signs Date Time Temp Pulse Resp B/P (MAP) Pulse Ox O2 Delivery O2 Flow Rate FiO2 01/09/21 16:38 36.9 55 18 211/92 (131) 96 Room Air Capillary Refill : Less Than 3 Seconds General Appearance: No Apparent Distress, WD/WN Respiratory: Lungs Clear, Normal Breath Sounds, No Respiratory Distress Cardiovascular: Regular Rate, Rhythm, No Edema, No Murmur Gastrointestinal: Normal Bowel Sounds, Non Tender, Soft Extremity: Normal Inspection, Non Tender, No Pedal Edema Neurologic/Psychiatric: Alert, Oriented x3, No Motor/Sensory Deficits, Normal Mood/Affect Skin: Normal Color, Warm/Dry Results/Procedures Lab Patient resulted labs reviewed. Assessment/Plan Assessment and Plan Assess & Plan/Chief Complaint Hypertensive encephalopathy Resistant hypertension Bradycardia Cardiology following Holding propranolol due to bradycardia Continue Losartan Increase Clonidine patch Increase Hydralazine IV hydralazine as needed CAD HLD Continue ASA and statin T2DM Continue Metformin Debility PT/OT DVT prophylaxis: Lovenox Diagnosis/Problems Diagnosis/Problems (1) Hypertensive encephalopathy Status: Resolved Resolution Date/Time: 01/09/21 @ 18:37 (2) Resistant hypertension Status: Acute (3) Bradycardia Status: Acute (4) T2DM (type 2 diabetes mellitus) Status: Chronic Qualifiers: Diabetes mellitus residential insulin use: without residential use (5) HLD (hyperlipidemia) Status: Chronic (6) CAD (coronary artery disease) Status: Chronic (7) Debility Status: Acute Clinical Quality Measures Stroke: Date of last known well: Jan 04, 2021 Time of last known well: 19:30 Symptoms onset unknown: No GUNJAN MAJANO MD Jan 09, 2021 18:36
[2021-01-09] MEDS: DOCUSATE SODIUM 100 MG (COLACE) CAP PO SCH (20:36)
[2021-01-09] MEDS: SENNA W/DOCUSATE (SENOKOT S) TABLET PO SCH (20:39)
[2021-01-09] MEDS: ASPIRIN E.C. 81 MG (ECOTRIN) TAB PO SCH (20:40)
[2021-01-09] MEDS: DIPHENHYDRAMINE PO SCH (20:40)
[2021-01-09] MEDS: ACETAMINOPHEN PO SCH (20:40)
[2021-01-09] MEDS: AtorvaSTATin TABLET 10 MG TABLET PO SCH (20:41)
[2021-01-10] VITALS (7 sets, daily range): BP systolic 103–142; BP diastolic 51–70
[2021-01-10] MEDS ORDERED: hydrALAZINE (APRESOLINE) 25 MG TAB PO SCH (06:00)
[2021-01-10] MEDS: CATHETER FLUSH 10 ML SYR IV SCH ×3 (06:02→22:20)
[2021-01-10] MEDS: inSUlin ASPART (NovoLOG) 1 UNIT/0.01 ML (CHARGE PER UNIT) SC SCH ×4 (06:48→21:00)
[2021-01-10] MEDS: metFORMIN XR 500 MG (GLUCOPHAGE XR) TAB PO SCH ×2 (06:59→16:58)
[2021-01-10] MEDS: SENNA W/DOCUSATE (SENOKOT S) TABLET PO SCH ×2 (08:34→22:18)
[2021-01-10] MEDS: ASPIRIN E.C. 325 MG (ECOTRIN) TABLET PO SCH (08:34)
[2021-01-10] MEDS: LOSARTAN 100 MG (COZAAR) TABLET PO SCH (08:34)
[2021-01-10] MEDS: DOCUSATE SODIUM 100 MG (COLACE) CAP PO SCH ×2 (08:34→22:24)
[2021-01-10] MEDS ORDERED: HYDR-3923 PO (08:35)
[2021-01-10] MEDS: PROPRANOLOL ER 60 MG CAP (INDERAL LA) PO SCH (08:35)
[2021-01-10] MEDS ORDERED: CLON1PAT34 TD (08:35)
[2021-01-10] MEDS ORDERED: amLODIPine 10 MG (NORVASC) TAB PO SCH (09:00)
--- NOTE | 2021-01-10 10:56 | Cardiology Progress Note ---
Subjective Date Seen by Provider: Jan 10, 2021 Time Seen by Provider: 10:52 Subjective/Events-last exam Patient was seen at bedside, laying down comfortably, denied any chest pain. Review of Systems General: No Chills, No Night Sweats, No Fatigue, No Malaise, No Appetite, No Other HEENT: No Head Aches, No Visual Changes, No Eye Pain, No Ear Pain, No Dysphasia, No Sinus Congestion, No Post Nasal Drip, No Sore Throat, No Other Pulmonary: No Dyspnea, No Cough, No Pleuritic Chest Pain, No Other Cardiovascular: No: Chest Pain, Palpitations, Orthopnea, Paroxysmal Noc. Dyspnea, Edema, Lt Headedness, Other Objective-Cardiology Exam Last Set of Vital Signs Vital Signs 01/10/21 08:24 Temp 36.8 Pulse 61 Resp 18 B/P (MAP) 103/64 (77) Pulse Ox 96 O2 Delivery Room Air I&O Intake and Output 01/10/21 00:00 Intake Total 2142 ml Balance 2142 ml Intake Oral 2142 ml # Voids 13 # Bowel Movements 2 General: Alert, Oriented X3, Cooperative HEENT: Atraumatic, PERRLA Neck: Supple, No JVD, No Thyromegaly Lungs: Clear to Auscultation, Normal Air Movement Heart: Regular Rate, Normal S1, Normal S2, No Murmurs Abdomen: Normal Bowel Sounds, Soft Extremities: Other (trace edema) Skin: No Rashes, No Significant Lesion Neuro: Normal Gait, Normal Speech, Cranial Nerves 3-12 NL Psych/Mental Status: Mental Status NL, Mood NL Results Lab Laboratory Tests Test 01/09/21 11:07 01/09/21 16:44 01/09/21 20:36 01/10/21 06:44 Range/Units Glucometer 108 103 128 H 103 70-110 MG/DL Test 01/10/21 10:52 Range/Units Glucometer 125 H 70-110 MG/DL A/P-Cardiology Admission Diagnosis Change in mental status Hypertensive emergency Coronary artery disease Palpitation Assessment/Plan Status post acute change in mental status with hypertensive emergency, blood pressure is better, getting back to baseline slowly. CT scan of the head showed diffuse atrophy. Nonspecific findings. No acute stroke. Hypertension, labile blood pressure due to autonomic dysfunction, malignant hypertension was evaluated in the ER with high blood pressure and TIA, in November, Patient has intolerance to multiple medication, Patient was intolerant to amlodipine due to sinus bradycardia and multiple pauses with first-degree AV block and right bundle branch block. I increased his losartan to 100 mg daily and he is tolerating it well I started clonidine 0.1 mg twice a day and he is tolerating it well Patient is complaining of fatigue and bradycardia, was on propranolol ER 60 mg twice a day. He is concerned about the tremor he has. I instructed him to change his propranolol back to 80 mg once a day and take it in the morning and monitor tolerance and response. History of intolerance to Cozaar with leg pain and cough, intolerance to Micardis with leg and ankle swelling, Lotrel causing swelling and cough, diltiazem was stopped in the past. Blood pressure today is better after starting clonidine patch 0.2 mg Became borderline hypotensive this morning, I will change hydralazine to 10 mg every 6 hours and evaluate tolerance and response Palpitation, has been occurring more frequently recently, I will monitor telemetry for now Sinus node dysfunction with persistent sinus bradycardia, complaining of fatigue, has been on propranolol, intolerant to amlodipine in the past. I have stopped propranolol, patient requested to restart the medication he is very concerned about his tremor. I will restart propranolol ER at 60 mg daily and evaluate tolerance and response Coronary artery disease Coronary artery bypass surgery in August [address] [facility]. Cardiac catheterization was in March 2007. It showed severe left coronary artery disease. There was a patent graft to an obtuse marginal branch of the left circumflex artery and a patent graft to the distal left anterior descending artery. A saphenous vein graft to the mid left anterior descending artery was occluded. The right coronary artery was dominant and had mild to moderate disease. Left ventricular ejection fraction was 60% and there was minimal localized anterolateral hypokinesis. Left ventricular end-diastolic pressure was normal. Stress test July 2018 revealed no ischemia or infarct. Continue to monitor, no changes are recommended Echocardiogram was done on April 30, 2020 showing normal LV size, EF 55 to 65%, left atrium 5.6 cm, mild MR, PA pressure 35 mmHg. Continue to monitor Holter monitor done in July 2020 showing sinus rhythm with episodes of bradycardia, sinus pauses with escape junctional bradycardia and first-degree AV block with right bundle branch block, occasional PVCs and PACs and short PAT. History of right bundle branch block. Carotid artery stenosis, hx of L CEA in 2005, CTA of head and neck done Nov 2020 showing bilateral nonobstructive disease Maturity onset diabetes mellitus being managed by Dr. Roberson. Hyperlipidemia, maintained on Lipitor, evaluate lipid profile Chronic tremor treated with beta-jesica therapy, maintained on Inderal and reporting slightly worsening of his tremor when decreasing the dose of Inderal. We will evaluate his response to the lower dose at this time again, being managed by Dr. Roberson. Sleep apnea syndrome; patient does not wish to comply with therapy. Chronic left sided hearing loss Intolerance to LILIAN inhibitors and ARBs due to multiple symptoms, currently tolerating losartan. Bilateral Dupytren's contractures of hands S/p L carpal tunnel surgery by Dr Grider on Oct 30, 2013. Bilateral leg discomfort, but ABIs of 01/06/15 were normal Chronic mild intermittent dependent leg swelling, likely related to venous insuff LISANDRO LEGER MD Jan 10, 2021 10:56
[2021-01-10] MEDS ORDERED: polyethylene glycoL POWDER 17 GM (MIRALAX) PACK PO ONE (11:15)
--- NOTE | 2021-01-10 11:39 | Progress Note - Hospitalist ---
Subjective HPI/CC On Admission Date Seen by Provider: Jan 10, 2021 Time Seen by Provider: 10:45 Subjective/Events-last exam He is feeling better today. He denies any pain. He has been eating and drinking ok. He is still constipated. Objective Exam Vital Signs Vital Signs Date Time Temp Pulse Resp B/P (MAP) Pulse Ox O2 Delivery O2 Flow Rate FiO2 01/10/21 08:24 36.8 61 18 103/64 (77) 96 Room Air Capillary Refill : Less Than 3 Seconds General Appearance: No Apparent Distress, Obese Respiratory: Lungs Clear, Normal Breath Sounds, No Respiratory Distress Cardiovascular: Regular Rate, Rhythm, No Edema, No Murmur Gastrointestinal: Normal Bowel Sounds, Non Tender, Soft Extremity: Normal Inspection, Non Tender, No Pedal Edema Neurologic/Psychiatric: Alert, No Motor/Sensory Deficits, Normal Mood/Affect Skin: Normal Color, Warm/Dry Results/Procedures Lab Patient resulted labs reviewed. Assessment/Plan Assessment and Plan Assess & Plan/Chief Complaint Hypertensive encephalopathy Resistant hypertension Bradycardia BP improved, low normal this morning Cardiology following Holding propranolol due to bradycardia Continue Clonidine patch Decrease Hydralazine IV hydralazine as needed CAD HLD Continue ASA and statin T2DM Continue Metformin Debility PT/OT DVT prophylaxis: Lovenox Diagnosis/Problems Diagnosis/Problems (1) Hypertensive encephalopathy Status: Resolved Resolution Date/Time: 01/09/21 @ 18:37 (2) Resistant hypertension Status: Acute (3) Bradycardia Status: Acute (4) T2DM (type 2 diabetes mellitus) Status: Chronic Qualifiers: Diabetes mellitus 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
[2021-01-10] MEDS ORDERED: LACTULOSE SYRUP 10GM/15ML (ENULOSE) 30ML UDC PO ONE (14:00)
[2021-01-10] MEDS: ASPIRIN E.C. 81 MG (ECOTRIN) TAB PO SCH (22:18)
[2021-01-10] MEDS: AtorvaSTATin TABLET 10 MG TABLET PO SCH (22:18)
[2021-01-10] MEDS: ACETAMINOPHEN PO SCH (22:22)
[2021-01-10] MEDS: DIPHENHYDRAMINE PO SCH (22:22)
[2021-01-11] VITALS (7 sets, daily range): BP systolic 130–194; BP diastolic 51–89
[2021-01-11] MEDS: metFORMIN XR 500 MG (GLUCOPHAGE XR) TAB PO SCH (06:47)
[2021-01-11] MEDS: CATHETER FLUSH 10 ML SYR IV SCH (06:47)
[2021-01-11] MEDS: inSUlin ASPART (NovoLOG) 1 UNIT/0.01 ML (CHARGE PER UNIT) SC SCH ×2 (06:48→11:00)
[2021-01-11] MEDS: SENNA W/DOCUSATE (SENOKOT S) TABLET PO SCH (08:27)
[2021-01-11] MEDS: DOCUSATE SODIUM 100 MG (COLACE) CAP PO SCH (08:27)
[2021-01-11] MEDS: ASPIRIN E.C. 325 MG (ECOTRIN) TABLET PO SCH (08:27)
[2021-01-11] MEDS: PROPRANOLOL ER 60 MG CAP (INDERAL LA) PO SCH (08:27)
[2021-01-11] MEDS: LOSARTAN 100 MG (COZAAR) TABLET PO SCH (08:28)
--- NOTE | 2021-01-11 08:56 | Cardiology Progress Note ---
Subjective Date Seen by Provider: Jan 11, 2021 Time Seen by Provider: 08:54 Subjective/Events-last exam Patient in bathroom, complains of constipation. Denies any chest pain. Review of Systems General: No Chills, No Night Sweats; Fatigue, Malaise; No Appetite, No Other HEENT: No Head Aches, No Visual Changes, No Eye Pain, No Ear Pain, No Dysphasia, No Sinus Congestion, No Post Nasal Drip, No Sore Throat, No Other Pulmonary: No Dyspnea, No Cough, No Pleuritic Chest Pain, No Other Cardiovascular: No: Chest Pain, Palpitations, Orthopnea, Paroxysmal Noc. Dyspnea, Edema, Lt Headedness, Other Objective-Cardiology Exam Last Set of Vital Signs Vital Signs 01/11/21 01/11/21 08:43 09:00 Temp 37.0 Pulse 57 Resp 20 B/P (MAP) 132/72 (92) Pulse Ox 96 O2 Delivery Room Air I&O Intake and Output 01/11/21 00:00 Intake Total 1310 ml Balance 1310 ml Intake Oral 1310 ml # Voids 8 General: Alert, Oriented X3, Cooperative HEENT: Atraumatic, PERRLA Neck: Supple, No JVD, No Thyromegaly Lungs: Clear to Auscultation, Normal Air Movement Heart: Regular Rate, Normal S1, Normal S2, No Murmurs Abdomen: Normal Bowel Sounds, Soft Extremities: Other (trace edema) Skin: No Rashes, No Significant Lesion Neuro: Normal Gait, Normal Speech, Cranial Nerves 3-12 NL Psych/Mental Status: Mental Status NL, Mood NL Results Lab Laboratory Tests Test 01/10/21 10:52 01/10/21 16:42 01/10/21 20:27 01/11/21 05:02 Range/Units Glucometer 125 H 85 126 H 103 70-110 MG/DL Test 01/11/21 06:45 Range/Units Glucometer 121 H 70-110 MG/DL A/P-Cardiology Admission Diagnosis Change in mental status Hypertensive emergency Coronary artery disease Palpitation Assessment/Plan Status post acute change in mental status with hypertensive emergency, blood pressure is better, getting back to baseline slowly. CT scan of the head showed diffuse atrophy. Nonspecific findings. No acute stroke. Hypertension, labile blood pressure due to autonomic dysfunction, malignant hypertension was evaluated in the ER with high blood pressure and TIA, in November, Patient has intolerance to multiple medication, Patient was intolerant to amlodipine due to sinus bradycardia and multiple pauses with first-degree AV block and right bundle branch block. I increased his losartan to 100 mg daily and he is tolerating it well I started clonidine 0.1 mg twice a day and he is tolerating it well Patient is complaining of fatigue and bradycardia, was on propranolol ER 60 mg twice a day. He is concerned about the tremor he has. I instructed him to change his propranolol back to 80 mg once a day and take it in the morning and monitor tolerance and response. History of intolerance to Cozaar with leg pain and cough, intolerance to Micardis with leg and ankle swelling, Lotrel causing swelling and cough, diltiazem was stopped in the past. I had a long discussion with the patient and his , discussed his discharge medication I recommended monitoring at home with checking his blood pressure twice daily Patient can go home on clonidine patch 0.2 mg daily, hydralazine 10 mg 3 times a day taking additional dose as needed for blood pressure over 160/110, losartan 100 mg daily and propranolol 40 mg daily. Palpitation, has been occurring more frequently recently, I will monitor telemetry for now Sinus node dysfunction with persistent sinus bradycardia, complaining of fatigue, has been on propranolol, intolerant to amlodipine in the past. I have stopped propranolol, patient requested to restart the medication he is very concerned about his tremor. Propranolol ER 40 mg will be tried and will evaluate his tolerance and response Coronary artery disease Coronary artery bypass surgery in August 2005 at [facility]. Cardiac catheterization was in March 2007. It showed severe left coronary artery disease. There was a patent graft to an obtuse marginal branch of the left circumflex artery and a patent graft to the distal left anterior descending artery. A saphenous vein graft to the mid left anterior descending artery was occluded. The right coronary artery was dominant and had mild to moderate disease. Left ventricular ejection fraction was 60% and there was minimal localized anterolateral hypokinesis. Left ventricular end-diastolic pressure was normal. Stress test July 2018 revealed no ischemia or infarct. Continue to monitor, no changes are recommended Constipation, receiving enema today. Echocardiogram was done on April 30, 2020 showing normal LV size, EF 55 to 65%, left atrium 5.6 cm, mild MR, PA pressure 35 mmHg. Continue to monitor Holter monitor done in July 2020 showing sinus rhythm with episodes of bradycardia, sinus pauses with escape junctional bradycardia and first-degree AV block with right bundle branch block, occasional PVCs and PACs and short PAT. History of right bundle branch block. Carotid artery stenosis, hx of L CEA in 2005, CTA of head and neck done Nov 2020 showing bilateral nonobstructive disease Maturity onset diabetes mellitus being managed by Dr. Roberson. Hyperlipidemia, maintained on Lipitor, evaluate lipid profile Chronic tremor treated with beta-jesica therapy, maintained on Inderal and reporting slightly worsening of his tremor when decreasing the dose of Inderal. We will evaluate his response to the lower dose at this time again, being managed by Dr. Roberson. Sleep apnea syndrome; patient does not wish to comply with therapy. Chronic left sided hearing loss Intolerance to LILIAN inhibitors and ARBs due to multiple symptoms, currently tolerating losartan. Bilateral Dupytren's contractures of hands S/p L carpal tunnel surgery by Dr Grider on Oct 30, 2013. Bilateral leg discomfort, but ABIs of 01/06/15 were normal Chronic mild intermittent dependent leg swelling, likely related to venous insuff Supervisory-Addendum Brief Supervisory Addendum Participated in pt care: history, MDM, physical Personally performed: exam, history, MDM Care discussed with: STANISLAV Results interpretation: Verified all documentation Notes: Patient was seen and evaluated with Lissette, examination performed, management plan was discussed, agree with the current scribed note, I made few changes to the note using Italic font LISSETTE BALTAZAR Jan 11, 2021 08:56 LISANDRO LEGER MD Jan 11, 2021 10:22
--- NOTE | 2021-01-11 09:27 | Discharge Summary ---
Diagnosis/Chief Complaint Date of Admission Jan 05, 2021 at 21:05 Date of Discharge Reason Hospital Visit PT IS AN 85 Y/O MALE WHO IS KNOWN TO ME FROM CLINIC. MR. BAUER HAD AN EPISODE OF CONFUSION, WEAKNESS AND WAS FOUND TO HAVE ACUTE AND SEVERE HYPERTENSION ON EVAL IN THE EMERGENCY DEPARTMENT. HE WAS SENT FOR IMAGING - NEGATIVE FOR ACUTE STROKE, AND HE HAD SLIGHT IMPROVEMENT IN HIS COGNITION WITH IV ANTIHYPERTENSIVE MEDICATIONS. Discharge Summary Discharge Physical Examination Allergies: Coded Allergies: hydrocodone (Unverified Allergy, Mild, 03/22/07) amlodipine (Unverified Allergy, Unknown, 10/25/13) benazepril (Unverified Allergy, Unknown, 10/25/13) codeine (Verified Allergy, Unknown, 09/02/05) telmisartan (Unverified Allergy, Unknown, 10/25/13) Vitals & I&Os Vital Signs Date Time Temp Pulse Resp B/P (MAP) Pulse Ox O2 Delivery O2 Flow Rate FiO2 01/11/21 08:43 37.0 57 20 132/72 (92) 96 Room Air Hospital Course Pending Labs Laboratory Tests 01/11/21 05:02: Glucometer 103 01/11/21 06:45: Glucometer 121 Discharge Instructions to patient/family Please see electronic discharge instructions given to patient. Discharge Medications Reviewed and agree with Discharge Medication list on patient's Discharge In struction sheet Clinical Quality Measures Stroke: Date of last known well: Jan 04, 2021 Time of last known well: 19:30 Symptoms onset unknown: No JOSH MORENO MD Jan 11, 2021 09:27
[2021-01-11] MEDS ORDERED: LOSA100T57 PO (09:30)
[2021-01-11] MEDS ORDERED: PROP60CA PO (09:30)
--- NOTE | 2021-01-11 09:31 | Discharge Inst-Simple/Standard ---
Discharge Inst-Standard Reconcile Patient Problems Problems Reviewed?: Yes Discharge Medications New, Converted or Re-Newed RX: Transmitted to Pharmacy Patient Instructions/Follow Up Plan of Care/Instructions/FU: 1 wk with [facility] [address] burnett Activity as Tolerated: Yes Goal: improved blood pressures with improved energy Discharge Diet: Low Sodium Diet Health Concerns: hyertension weakness Return to The Hospital For: any concern for lifethreatening illness or injury or grossly uncontrolled blood pressure which does not respond to planned PRN treatments JOSH MORENO MD Jan 11, 2021 09:31
[2021-01-11] MEDS ORDERED: HYDR-3922 PO (10:26)
== END 2021-01-11 13:32 | disposition home or self-care (01) | DRG 78 ==
LOC: EDUNIT# 21:11 → ER 21:12 → ICU 23:45 → 4TH 01-05 14:41 → OBSVTOIN 01-05 21:05
PROVIDERS: ADMIT Family Medicine; ATTEND Internal Medicine
DX: I67.4 Hypertensive encephalopathy (principal); I16.1 Hypertensive emergency; I10 Essential (primary) hypertension; I49.5 Sick sinus syndrome; I44.0 Atrioventricular block, first degree; I45.10 Unspecified right bundle-branch block; I34.0 Nonrheumatic mitral (valve) insufficiency; E11.9 Type 2 diabetes mellitus without complications; E78.5 Hyperlipidemia, unspecified; I25.10 Atherosclerotic heart disease of native coronary artery without angina pectoris; I65.23 Occlusion and stenosis of bilateral carotid arteries; R25.1 Tremor, unspecified; R29.700 NIHSS score 0; H54.7 Unspecified visual loss; H91.92 Unspecified hearing loss, left ear; I87.2 Venous insufficiency (chronic) (peripheral); K59.00 Constipation, unspecified; F45.8 Other somatoform disorders; M72.0 Palmar fascial fibromatosis [Dupuytren]; Z86.73 Personal history of transient ischemic attack (TIA), and cerebral infarction without residual deficits; Z87.891 Personal history of nicotine dependence; Z95.1 Presence of aortocoronary bypass graft; Z79.84 Long term (current) use of oral hypoglycemic drugs; Z79.82 Long term (current) use of aspirin; Z88.5 Allergy status to narcotic agent; Z88.8 Allergy status to other drugs, medicaments and biological substances
CPT/HCPCS: 36415; 70450; 80048; 80053; 80320; 81000; 82947; 84484; 85007; 85025; 85027; 86141; 93005; 96374; G0378

== ENCOUNTER → 2021-01-29 | Outpatient (CLI) | payer MEDICARE, BC ==
[~2021-01-29] MED LIST changes: +ACET-3075 PO; +ASPI-1238 PO; +ATOR10TA66 PO; +CLN.1T PO; +CLON1PAT34 TD; +CYAN500T8 PO; +HYDR-3922 PO; +HYDR-3923 PO; +HYDR12.56 PO; +LOSA100T57 PO; +LOSA50TA63 PO; +METF-865 PO; +PEDI1TAB60 PO; +PROP60CA PO; +PROP80CA4 PO; +UBID100C44 PO
--- NOTE | 2021-01-29 15:01 | Diagnostic Imaging Report ---
PATIENT HISTORY: Cough. TECHNIQUE: Two views of the chest. COMPARISON: 12/26/2020. FINDINGS: The lung volumes are normal. No focal consolidation is seen. No large pleural effusion or pneumothorax is seen. There is scarring in the lung apices. The cardiomediastinal silhouette is normal in size and contour. No acute osseous abnormality is seen. Sternotomy wires and post-CABG changes are noted. IMPRESSION: No acute pulmonary abnormality seen. Dictated by: Dictated on workstation # [id number]
== END ==
LOC: RAD 10:00
PROVIDERS: ATTEND Nurse Practitioner Family
DX: R05.9 Cough, unspecified (principal)
CPT/HCPCS: 71046

== ENCOUNTER 2021-01-30 20:41 | Inpatient (IN) | payer MEDICARE, BC ==
[~2021-01-30] VITALS: Ht 183 cm; Wt 99.9 kg
[~2021-01-30 20:41] MED LIST changes: -ACET-3075 PO
[2021-01-30 21:14] LABS: BASOPHILS # (AUTO) 0.1 10^3/uL (0.0-0.1); BASOPHILS % (AUTO) 1 % (0-10); EOSINOPHILS # (AUTO) 0.4 10^3/uL (0.0-0.3); EOSINOPHILS % (AUTO) 4 % (0-10); HEMATOCRIT 40 % (40-54); HEMOGLOBIN 13.5 g/dL (13.3-17.7); LYMPHOCYTES # (AUTO) 1.6 10^3/uL (1.0-4.0); LYMPHOCYTES % (AUTO) 17 % (12-44); MEAN CORPUSCULAR HEMOGLOBIN 32 pg (25-34); MEAN CORPUSCULAR HGB CONC 34 g/dL (32-36); MEAN CORPUSCULAR VOLUME 93 fL (80-99); MEAN PLATELET VOLUME 10.4 fL (9.0-12.2); MONOCYTES % (AUTO) 10 % (0-12); NEUTROPHILS # (AUTO) 6.6 10^3/uL (1.8-7.8); NEUTROPHILS % (AUTO) 68 % (42-75); PLATELET COUNT 200 10^3/uL (130-400); WHITE BLOOD COUNT 9.6 10^3/uL (4.3-11.0)
[2021-01-30] MEDS ORDERED: hydrALAZINE (APESOLINE) 20 MG/ML VIAL IV ONE ×2 (21:15→22:15)
--- NOTE | 2021-01-30 21:18 | ED Cardiac General ---
History of Present Illness General Chief Complaint: Cardiac/General Problems Stated Complaint: HIGH BP,CONFUSED,DIFFICULTY SPEAKING Source: patient Exam Limitations: no limitations (JIMMY GARCIA APRN) History of Present Illness Date Seen by Provider: Jan 30, 2021 Time Seen by Provider: 21:12 Initial Comments To ER by private vehicle accompanied by his with reports of high blood pressure. He was recently admitted to the hospital with hypertensive encephalopathy. He was here recently for a prolonged admission for this. He was then started on a higher dose of clonidine patch 0.3 mg which has subsequently been reduced down to 0.2 mg on 01/29/2021 due to the dry mouth it was causing. Subsequently his blood pressure has risen. He is also on hydralazine. He reports a headache that began today at about noon though it is pretty mild. He denies any preceding head injury. Denies chest pain but does report some shortness of breath. Timing/Duration: changing over time Severity: moderate NTG SL CABLE SWAGER: No ASA po CABLE SWAGER: No Associated Systoms: Headaches (JIMMY GARCIA APRN) Allergies and Home Medications Allergies Coded Allergies: hydrocodone (Unverified Allergy, Mild, 03/22/07) amlodipine (Unverified Allergy, Unknown, 10/25/13) benazepril (Unverified Allergy, Unknown, 10/25/13) codeine (Verified Allergy, Unknown, 09/02/05) telmisartan (Unverified Allergy, Unknown, 10/25/13) Patient Home Medication List Home Medication List Reviewed: Yes (JIMMY GARCIA APRN) Aspirin (Aspirin EC) 81 Mg Tablet.dr, 81 MG PO HS, (Reported) Entered as Reported by: FRANSISCA CAMEJO on 01/05/21 1131 Atorvastatin Calcium (Atorvastatin Calcium) 10 Mg Tablet, 10 MG PO HS, (Reported) Entered as Reported by: FRANSISCA CAMEJO on 01/05/21 1131 Clonidine (Clonidine TTS 2 Patch) 1 Each Patch.tdwk, 1 PATCH TD Q7D Prescribed by: GUNJAN MAJANO on 01/10/21 0835 Cyanocobalamin (Vitamin B-12) (Vitamin B-12) 500 Mcg Tablet, 500 MCG PO DAILY, (Reported) Entered as Reported by: FRANSISCA CAMEJO on 01/05/21 1131 Hydralazine HCl (Hydralazine HCl) 10 Mg Tablet, 10 MG PO Q6HR Prescribed by: MARTHA DIAL on 01/11/21 1026 Losartan Potassium (Losartan Potassium) 100 Mg Tablet, 100 MG PO DAILY Prescribed by: JOSH MORENO on 01/11/21 0930 Metformin HCl (Metformin HCl ER) 500 Mg Tab.er.24h, 500 MG PO BIDAC, (Reported) Entered as Reported by: FRANSISCA CAMEJO on 01/05/21 1131 Pediatric Multivit Comb No.136 (Children Multivitamin) 1 Each Tab.chew, 1 EACH PO DAILY, (Reported) Entered as Reported by: FRANSISCA CAMEJO on 01/05/21 1131 Propranolol HCl (Propranolol HCl ER) 60 Mg Cap.sa.24h, 1 MG PO DAILY Prescribed by: JOSH MORENO on 01/11/21 0930 Ubidecarenone (Co Q-10) 100 Mg Capsule, 100 MG PO DAILY, (Reported) Entered as Reported by: FRANSISCA CAMEJO on 01/05/21 1131 Review of Systems Review of Systems Constitutional: see HPI EENTM: No Symptoms Reported Respiratory: See HPI, Shortness of Air Cardiovascular: No Symptoms Reported Gastrointestinal: No Symptoms Reported Genitourinary: No Symptoms Reported Musculoskeletal: no symptoms reported Skin: no symptoms reported Psychiatric/Neurological: No Symptoms Reported Endocrine: No Symptoms Reported Hematologic/Lymphatic: No Symptoms Reported (JIMMY GARCIA APRN) Past Clookyp-Byyavk-Dmyhgk Hx Immunizations Up To Date First/Initial COVID19 Vaccinat: 02/2020 Second COVID19 Vaccination Jose: 03/2020 (JIMMY GARCIA APRN) Past Medical History Surgery/Hospitalization HX: hernia x3, bilat cea, turp, ortho, niddm, htn, high lipids Surgeries: Yes (MENISCUS REPAIR, TURP, HERNIA X3, bilateral ENDARTERECTOMY,200 6) Cardiac, CABG Respiratory: No Cardiac: Yes (CABG X3 VESSELS) Coronary Artery Disease, Peripheral Vascular Neurological: No Reproductive Disorders: No Sexually Transmitted Disease: No Genitourinary: No Gastrointestinal: No Musculoskeletal: No Endocrine: No HEENT: Yes Hearing Impairment: Hard of Hearing, Hearing Aide Right Psychosocial: No Blood Disorders: No (JIMMY GARICA APRN) Family Medical History Heart Disease, Hypertension (JIMMY GARCIA APRN) Physical Exam Vital Signs Vital Signs - First Documented 01/30/21 20:50 Temp 36.9 Pulse 51 Resp 19 B/P (MAP) 236/95 (142) Pulse Ox 96 O2 Delivery Room Air (NAM TINAJERO MD) Vital Signs Capillary Refill : (JIMMY GARCIA APRN) Height, Weight, BMI Height: 6'0.00" Weight: 230lbs. 0.0oz. 104.513457pe; 30.09 BMI Method: General Appearance: No Apparent Distress, WD/WN Neck: Full Range of Motion, Normal Inspection Respiratory: No Accessory Muscle Use, No Respiratory Distress Cardiovascular: Normal Peripheral Pulses, Bradycardia Gastrointestinal: Normal Bowel Sounds, Non Tender, Soft Neurologic/Psychiatric: Alert, Oriented x3 Skin: Normal Color, Warm/Dry (JIMMY GARCIA APRN) HEENT: PERRL/EOMI, Pharynx Normal Extremity: Normal Range of Motion, Non Tender, No Calf Tenderness (NAM TINAJERO MD) Progress/Results/Core Measures Results/Orders Lab Results Laboratory Tests Test 01/30/21 21:00 01/30/21 21:55 Range/Units White Blood Count 9.6 4.3-11.0 10^3/uL Red Blood Count 4.24 L 4.30-5.52 10^6/uL Hemoglobin 13.5 13.3-17.7 g/dL Hematocrit 40 40-54 % Mean Corpuscular Volume 93 80-99 fL Mean Corpuscular Hemoglobin 32 25-34 pg Mean Corpuscular Hemoglobin Concent 34 32-36 g/dL Red Cell Distribution Width 13.2 10.0-14.5 % Platelet Count 200 130-400 10^3/uL Mean Platelet Volume 10.4 9.0-12.2 fL Immature Granulocyte % (Auto) 0 % Neutrophils (%) (Auto) 68 42-75 % Lymphocytes (%) (Auto) 17 12-44 % Monocytes (%) (Auto) 10 0-12 % Eosinophils (%) (Auto) 4 0-10 % Basophils (%) (Auto) 1 0-10 % Neutrophils # (Auto) 6.6 1.8-7.8 10^3/uL Lymphocytes # (Auto) 1.6 1.0-4.0 10^3/uL Monocytes # (Auto) 1.0 0.0-1.0 10^3/uL Eosinophils # (Auto) 0.4 H 0.0-0.3 10^3/uL Basophils # (Auto) 0.1 0.0-0.1 10^3/uL Immature Granulocyte # (Auto) 0.0 0.0-0.1 10^3/uL Sodium Level 134 L 135-145 MMOL/L Potassium Level 4.2 3.6-5.0 MMOL/L Chloride Level 98 98-107 MMOL/L Carbon Dioxide Level 25 21-32 MMOL/L Anion Gap 11 5-14 MMOL/L Blood Urea Nitrogen 7 7-18 MG/DL Creatinine 0.83 0.60-1.30 MG/DL Estimat Glomerular Filtration Rate 88 BUN/Creatinine Ratio 8 Glucose Level 139 H 70-105 MG/DL Calcium Level 9.5 8.5-10.1 MG/DL Corrected Calcium 9.7 8.5-10.1 MG/DL Total Bilirubin 0.5 0.1-1.0 MG/DL Aspartate Amino Transf (AST/SGOT) 19 5-34 U/L Alanine Aminotransferase (ALT/SGPT) 22 0-55 U/L Alkaline Phosphatase 51 40-136 U/L Total Protein 6.9 6.4-8.2 GM/DL Albumin 3.8 3.2-4.5 GM/DL Urine Color YELLOW Urine Clarity CLEAR Urine pH 7.0 5-9 Urine Specific [place] 1.025 H 1.016-1.022 Urine Protein NEGATIVE NEGATIVE Urine Glucose (UA) NEGATIVE NEGATIVE Urine Ketones NEGATIVE NEGATIVE Urine Nitrite NEGATIVE NEGATIVE Urine Bilirubin NEGATIVE NEGATIVE Urine Urobilinogen 0.2 < = 1.0 MG/DL Urine Leukocyte Esterase NEGATIVE NEGATIVE Urine RBC (Auto) NEGATIVE NEGATIVE Urine RBC NONE /HPF Urine WBC NONE /HPF Urine Squamous Epithelial Cells NONE /HPF Urine Renal Epithelial Cells NONE /HPF Urine Crystals NONE /LPF Urine Bacteria NEGATIVE /HPF Urine Casts NONE /LPF Urine Mucus NEGATIVE /LPF Urine Culture Indicated NO (NAM TINAJERO MD) Medications Given in ED Current Medications Medications Dose Ordered Sig/Les Route Start Time Stop Time Status Last Admin Dose Admin Hydralazine HCl 20 mg ONCE ONCE IV 01/30/21 21:15 01/30/21 21:16 DC 01/30/21 21:15 20 MG Hydralazine HCl 20 mg ONCE ONCE IV 01/30/21 22:15 01/30/21 22:16 DC 01/30/21 22:17 20 MG (NAM TINAJERO MD) Vital Signs/I&O 01/30/21 20:50 Temp 36.9 Pulse 51 Resp 19 B/P (MAP) 236/95 (142) Pulse Ox 96 O2 Delivery Room Air (NAM TINAJERO MD) Progress Progress Note : Progress Note Seen and evaluated with Jimmy Garcia APRN. IV, labs, x-ray, EKG and CT head ordered. Hydralazine ordered. 2308: Case discussed with Dr. MELENDEZ by Jimmy Garcia APRN. She accepts patient for admission. We are pending CT angiogram of the head due to some difficulty with speech. At this point it does appear to be more hypertensive encephalopathy. Blood pressure is improved after hydralazine. Normal saline 500 mL bolus given after CT angiogram. Monitor patient. 0213: CT results obtained. Patient will continue with admission. He did receive Zofran 4 mg IV for nausea. Blood pressure remains in reasonable range at this point with hydralazine. To be admitted. (NAM TINAJERO MD) Initial ECG Impression Date: Jan 30, 2021 Initial ECG Impression Time: 20:55 Initial ECG Rate: 51 Comment Sinus rhythm with right bundle branch block and left atrial enlargement. No evidence of ST elevation OR. Similar to 01/07/2021. Interpreted by me. (NAM TINAJERO MD) Diagnostic Imaging Diagonstic Imaging: Xray Plain Films/CT/US/NM/MRI: chest Comments [facility], [facility]. [place], [place] NAME: BROOKS BAUERUna Hall [facility] REC#: [id number] PT STATUS: REG ER : 1935 PHYSICIAN: JIMMY GARCIA APRN ADMIT DATE: 01/30/21/ER Signed Date of Exam:01/30/21 CHEST 1 VIEW, AP/PA ONLY INDICATION: Hypertension. TECHNIQUE: Single view chest 9:28 PM. CORRELATION STUDY: 01/29/2021. FINDINGS: Poststernotomy change. Heart size and mediastinum are prominent. This may be slightly accentuated by portable technique. The lungs are clear with no consolidating infiltrate. There is no significant effusion or pneumothorax. IMPRESSION: Mild prominence of the heart size and mediastinum may be accentuated by technique. Also likely presence of a tortuous, ectatic thoracic aorta. Prior sternotomy change. Dictated by: Dictated on workstation # [id number] Dict: 01/30/212126 Trans: 01/30/212248 [facility] [id number] Interpreted by: AVERY EPPS DO Electronically signed by: AVERY EPPS DO 01/30/212248 Diagonstic Imaging: CT Plain Films/CT/US/NM/MRI: head Comments [facility] [place] NAME: ARIANNE BAUER [facility] REC#: [id number] PT STATUS: REG ER : 1935 PHYSICIAN: JIMMY GARCIA APRN ADMIT DATE: 01/30/21/ER Signed Date of Exam:01/30/21 CT HEAD WO PROCEDURE: CT head without contrast. TECHNIQUE: Multiple contiguous axial images were obtained through the brain without the use of intravenous contrast. Auto Exposure Controls were utilized during the CT exam to meet ALARA standards for radiation dose reduction. INDICATION: 85-year-old male, hypertension slight headache. CORRELATION: 01/04/2021 FINDINGS: There is diffuse atrophic changes with prominence of the ventricles and sulci. There are scattered areas of decreased attenuation, nonspecific but likely changes of chronic small vessel ischemic disease. There is otherwise normal reis-white differentiation. 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 No abnormal areas of attenuation to suggest edema from ischemia. There is no midline shift or mass effect. No evidence for acute intracranial hemorrhage or abnormal extra-axial fluid collection. Bony calvarium is intact. Prior lens replacement. Paranasal sinuses are clear. Mastoid air cells also appear clear. IMPRESSION: 1. No CT evidence for acute intracranial abnormality. 2. Age-related atrophic changes with changes of small vessel ischemic disease. Dictated by: Dictated on workstation # [id number] Dict: 01/30/212133 Trans: 01/30/212248 DO [id number] Interpreted by: AVERY EPPS DO Electronically signed by: AVERY EPPS DO 01/30/212248 Diagonstic Imaging: CT Plain Films/CT/US/NM/MRI: head, other Comments 0211: CT angiogram of the head and neck shows no significant stenosis and the brain or of the neck per stat rad read. (NAM TINAJERO MD) Departure Communication (Admissions) 2256-blood pressure has fallen to 155/79 heart rate has risen to 81 still sinus. This is after 40 mg of IV hydralazine. I asked how he is feeling he states "not good, not good". He reports that he has been having some trouble getting the words out that he wants. This is been a problem intermittently today and he reports it currently now. 2314-he does get a score of 1 only on the NIH stroke scale and that is for some mild expressive aphasia. When I asked him to identify the objects on the paper he calls the globe some gibberish but not an actual word. Same story when I asked him to identify my wristwatch, he calls it some gibberish though his speech is clear. Will obtain a CT angio head and neck and write for hydralazine 20 mg IV every 4 hours as needed for systolic pressure greater than 180 upstairs and admit to cardiac stepdown with blood pressure checks every 2 hours x 4 then every 4 hours. Will admit to Dr. Melendez on-call for Dr. Moreno. Care has been turned over to Dr. Tinajero at this time, CT angio pending (JIMMY GARCIA APRN) Time/Spoke to Admitting Phy: 23:08 (NAM TINAJERO MD) Impression Primary Impression: Hypertensive encephalopathy Disposition: ADMITTED INPATIENT Condition: Stable Admissions Decision to Admit Reason: Admit from ER (General) Decision to Admit/Date: Jan 30, 2021 Time/Decision to Admit Time: 23:08 (NAM TINAJERO MD) Departure-Patient Inst. Referrals: JOSH MORENO MD (PCP/Family) Primary Care Physician JIMMY GARCIA APRN Jan 30, 2021 21:18 NAM TINAJERO MD Jan 31, 2021 02:16
[2021-01-30 21:28] LABS: ALBUMIN 3.8 GM/DL (3.2-4.5); BILIRUBIN,TOTAL 0.5 MG/DL (0.1-1.0); CALCIUM 9.5 MG/DL (8.5-10.1); CREATININE SERUM 0.83 MG/DL (0.60-1.30); POTASSIUM 4.2 MMOL/L (3.6-5.0); TOTAL PROTEIN 6.9 GM/DL (6.4-8.2)
--- NOTE | 2021-01-30 21:35 | Diagnostic Imaging Report ---
INDICATION: Hypertension. TECHNIQUE: Single view chest 9:28 PM. CORRELATION STUDY: 01/29/2021. FINDINGS: Poststernotomy change. Heart size and mediastinum are prominent. This may be slightly accentuated by portable technique. The lungs are clear with no consolidating infiltrate. There is no significant effusion or pneumothorax. IMPRESSION: Mild prominence of the heart size and mediastinum may be accentuated by technique. Also likely presence of a tortuous, ectatic thoracic aorta. Prior sternotomy change. Dictated by: Dictated on workstation # [id number]
--- NOTE | 2021-01-30 21:37 | Diagnostic Imaging Report ---
PROCEDURE: CT head without contrast. TECHNIQUE: Multiple contiguous axial images were obtained through the brain without the use of intravenous contrast. Auto Exposure Controls were utilized during the CT exam to meet ALARA standards for radiation dose reduction. INDICATION: 85-year-old male, hypertension slight headache. CORRELATION: 01/04/2021 FINDINGS: There is diffuse atrophic changes with prominence of the ventricles and sulci. There are scattered areas of decreased attenuation, nonspecific but likely changes of chronic small vessel ischemic disease. There is otherwise normal reis-white differentiation. 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 No abnormal areas of attenuation to suggest edema from ischemia. There is no midline shift or mass effect. No evidence for acute intracranial hemorrhage or abnormal extra-axial fluid collection. Bony calvarium is intact. Prior lens replacement. Paranasal sinuses are clear. Mastoid air cells also appear clear. IMPRESSION: 1. No CT evidence for acute intracranial abnormality. 2. Age-related atrophic changes with changes of small vessel ischemic disease. Dictated by: Dictated on workstation # [id number]
[2021-01-30 22:01] LABS: BILIRUBIN,URINE NEGATIVE (NEGATIVE); CLARITY,URINE CLEAR; COLOR,URINE YELLOW; GLUCOSE, URINE (UA) NEGATIVE (NEGATIVE); KETONES,URINE NEGATIVE (NEGATIVE); LEUKOCYTE ESTERASE ,URINE NEGATIVE (NEGATIVE); NITRITE,URINE NEGATIVE (NEGATIVE); PROTEIN,URINE NEGATIVE (NEGATIVE)
[2021-01-30 22:09] LABS: BACTERIA,URINE NEGATIVE /HPF
[2021-01-30] MEDS ORDERED: NS IV 500 ML 500 ML IV SCH (23:15)
[2021-01-31] VITALS (11 sets, daily range): BP systolic 102–144; BP diastolic 51–133
[2021-01-31] MEDS ORDERED: NS 100 ML (IVPB) BAG IV ONE (00:30)
[2021-01-31] MEDS ORDERED: IOHEXOL 350 MG/ML 100 ML (OMNIPAQUE 350) VIAL IV ONE (00:30)
[2021-01-31] MEDS ORDERED: HOLD METFORMIN - RECEIVED CONTRAST 20 ML VIAL IV SCH (00:30)
[2021-01-31] MEDS ORDERED: CATHETER FLUSH 10 ML SYR IV PRN (00:30)
[2021-01-31] MEDS ORDERED: ONDANSETRON 4 MG/2 ML (SDV) Z0FRAN IVP ONE (01:00)
[2021-01-31 05:29] LABS: BASOPHILS % (AUTO) 0 % (0-10); EOSINOPHILS % (AUTO) 0 % (0-10); HEMATOCRIT 43 % (40-54); HEMOGLOBIN 14.6 g/dL (13.3-17.7); LYMPHOCYTES # (AUTO) 0.6 10^3/uL (1.0-4.0); LYMPHOCYTES % (AUTO) 4 % (12-44); MEAN CORPUSCULAR HEMOGLOBIN 32 pg (25-34); MEAN CORPUSCULAR HGB CONC 34 g/dL (32-36); MEAN CORPUSCULAR VOLUME 92 fL (80-99); MEAN PLATELET VOLUME 10.6 fL (9.0-12.2); MONOCYTES # (AUTO) 0.9 10^3/uL (0.0-1.0); MONOCYTES % (AUTO) 6 % (0-12); NEUTROPHILS # (AUTO) 13.9 10^3/uL (1.8-7.8); NEUTROPHILS % (AUTO) 90 % (42-75); PLATELET COUNT 196 10^3/uL (130-400); WHITE BLOOD COUNT 15.5 10^3/uL (4.3-11.0)
[2021-01-31 05:46] LABS: POTASSIUM 3.9 MMOL/L (3.6-5.0)
[2021-01-31 05:47] LABS: CALCIUM 9.1 MG/DL (8.5-10.1)
[2021-01-31 05:52] LABS: CREATININE SERUM 0.76 MG/DL (0.60-1.30)
--- NOTE | 2021-01-31 05:58 | Diagnostic Imaging Report ---
PROCEDURE: CT angiography of the head and CT angiography of the neck with and without contrast. TECHNIQUE: Contiguous noncontrast images were obtained from the skull base through the vertex. After intravenous contrast administration, helical CT angiography of the neck was performed. Source data was reformatted into 3D MIP projections. Delayed post contrast acquisition was also obtained. Auto Exposure Controls were utilized during the CT exam to meet ALARA standards for radiation dose reduction. INDICATION: Hypertension, headache and expressive aphasia. CTA HEAD: Anterior, middle and posterior cerebral arteries are patent. No stenosis, filling defect or occlusion is identified. There is mild atherosclerotic calcification within distal internal carotid arteries. No aneurysm or vascular malformation is identified and there is no evidence of abnormal contrast enhancement. CTA NECK: There is bovine type aortic arch. Great vessels in the upper mediastinum are unremarkable. There is mild carotid artery atherosclerosis. Otherwise, there is no evidence of carotid arterial filling defect, stenosis or occlusion. Vertebral arteries are patent throughout the neck with mild left vertebral arterial dominance. No focal vertebral stenosis, filling defect or occlusion is identified. There is no evidence of pseudoaneurysm or perivascular lesion in the neck. IMPRESSION: No CTA evidence of stenosis, filling defect or occlusion within the great vessels of head and neck. Dictated by: Dictated on workstation # [id number]
[2021-01-31 06:58] LABS: BAND NEUTROPHILS 3 %; LYMPHOCYTES % (MANUAL) 4 %; METAMYELOCYTES % 1 %; MONOCYTES % (MANUAL) 3 %; NEUTROPHILS % (MANUAL) 83 %
[2021-01-31] MEDS ORDERED: ACET-3075 PO (08:39)
[2021-01-31] MEDS ORDERED: meTOprolol SUCCINATE 100 MG (TOPROL XL) TAB PO ONE (11:30)
--- NOTE | 2021-01-31 11:39 | History & Physical ---
History of Present Illness History of Present Illness Reason for visit/HPI This is a 85 year old male who is a patient of Dr. Moreno's for whom I am covering. He had a recent admission for hypertensive encephalopathy. His clonidine patch was lowered recently due to dry mouth. He presented to the emergency room with expressive aphasia and BP in 200s/100s. He underwent a CT of the brain and even CT angiogram of the head and neck which showed no acute ischemia and no stenosis of the vessels. He was given IV hydralazine which brought his blood pressure down. This morning he is resting in bed and his speech is much better. His BP is in the 120s/50s. He is noted to have a pill rolling tremor in his right hand but says this is an essential tremor. His and nursing also report shuffling gait. Date of Admission Jan 30, 2021 at 23:10 Date Seen by a Provider: Jan 31, 2021 Time Seen by a Provider: 11:37 I consulted on this patient on 01/31/21 11:34 Attending Physician Lucille Melendez DO Admitting Physician Josh Moreno MD Consult Allergies and Home Medications Allergies Coded Allergies: hydrocodone (Unverified Allergy, Mild, 03/22/07) amlodipine (Unverified Allergy, Unknown, 10/25/13) benazepril (Unverified Allergy, Unknown, 10/25/13) codeine (Verified Allergy, Unknown, 09/02/05) telmisartan (Unverified Allergy, Unknown, 10/25/13) Patient Home Medication List Home Medication List Reviewed: Yes Acetaminophen/Diphenhydramine (Tylenol Pm Ex-Strength Caplet) 1 Each Tablet, 1 EACH PO, (Reported) Entered as Reported by: JEFF MCKEON on 01/31/21 0839 Last Action: New Order Aspirin (Aspirin EC) 81 Mg Tablet.dr, 81 MG PO HS, (Reported) Entered as Reported by: FRANSISCA CAMEJO on 01/05/21 113 Last Action: Continued Atorvastatin Calcium (Atorvastatin Calcium) 10 Mg Tablet, 10 MG PO HS, (Reported) Entered as Reported by: FRANSISCA CAMEJO on 01/05/21 113 Last Action: Held Clonidine (Clonidine TTS 2 Patch) 1 Each Patch.tdwk, 1 PATCH TD Q7D Prescribed by: GUNJAN MAJANO on 01/10/21 0835 Last Action: Held Cyanocobalamin (Vitamin B-12) (Vitamin B-12) 500 Mcg Tablet, 500 MCG PO DAILY, (Reported) Entered as Reported by: FRANSISCA CAMEJO on 01/05/211130 Last Action: Reviewed Hydralazine HCl (Hydralazine HCl) 10 Mg Tablet, 10 MG PO Q6HR Prescribed by: MARTHA DIAL on 01/11/21 1026 Last Action: Reviewed Metformin HCl (Metformin HCl ER) 500 Mg Tab.er.24h, 500 MG PO BIDAC, (Reported) Entered as Reported by: FRANSISCA CAMEJO on 01/05/211130 Last Action: Continued Pediatric Multivit Comb No.136 (Children Multivitamin) 1 Each Tab.chew, 1 EACH PO DAILY, (Reported) Entered as Reported by: FRANSISCA CAMEJO on 01/05/211130 Last Action: Reviewed Propranolol HCl (Propranolol HCl ER) 60 Mg Cap.sa.24h, 1 MG PO DAILY Prescribed by: JOSH MORENO on 01/11/21929 Last Action: Held Ubidecarenone (Co Q-10) 100 Mg Capsule, 100 MG PO DAILY, (Reported) Entered as Reported by: FRANSISCA CAMEJO on 01/05/211130 Last Action: Reviewed Discontinued Medications Losartan Potassium (Losartan Potassium) 100 Mg Tablet, 100 MG PO DAILY Discontinued Reason: No Longer Taking Prescribed by: JOSH MORENO on 01/11/21929 Last Action: Discontinued Past Jckrjrt-Hajjtl-Jrgnka Hx Patient Social History Marrital Status: Employed/Student: retired Tobacco Use?: No Smoking Status: Unknown if Ever Smoked Smokeless Tobacco Frequency: Unknown if Ever Used Use of E-Cig and/or Vaping dev: No Use of E-Cig and/or Vaping Ozzie: Unknown if Ever Used Substance use?: Unable to obtain Alcohol Use?: Unable to obtain Pt feels they are or have been: Unable to obtain Immunizations Up To Date Date of Influenza Vaccine: Jan 01, 2021 First/Initial COVID19 Vaccinat: FEB 2020 Second COVID19 Vaccination Jose: MAR 2020 Tetanus Booster (TDap): More Than 5 Years Date of Pneumonia Vaccine: July 02, 2009 Current Status Advance Directives: No Communicates: Verbally Primary Language: Turkmen Preferred Spoken Language: Turkmen Is interpretation needed?: No Sensory deficits: Vision impairment Past Medical History Surgeries: Cardiac, CABG Coronary Artery Disease, Peripheral Vascular Sexually Transmitted Disease: No Hearing Impairment: Hard of Hearing, Hearing Aide Right Blood Disorders: No Family Medical History Heart Disease, Hypertension Review of Systems Constitutional: weakness EENTM: No see HPI, No no symptoms reported, No ear discharge, No hearing loss, No ear pain, No blurred vision, No double vision, No eye pain, No tearing, No vision loss, No dental problems, No hoarseness, No mouth pain, No mouth swelling, No epistaxis, No nose congestion, No nose pain, No throat pain, No throat swelling, No other Respiratory: No no symptoms reported, No see HPI, No cough, No dyspnea on exertion, No hemoptysis, No orthopnea, No phlegm, No short of breath, No stridor, No wheezing, No other Cardiovascular: other (HTN) Gastrointestinal: abdominal pain Genitourinary: No no symptoms reported, No see HPI, No decreased output, No discharge, No dysuria, No frequency, No hematuria, No hesitancy, No incontinence, No nocturia, No pain, No other Musculoskeletal: muscle weakness Skin: No no symptoms reported, No see HPI, No change in color, No change in hair/nails, No dryness, No hx of skin cancer, No lesions, No lumps, No pruritus, No rash, No other Psychiatric/Neurological: Tremors Physical Exam Vital Signs Vital Signs - First Documented 01/30/21 20:50 Temp 36.9 Pulse 51 Resp 19 B/P (MAP) 236/95 (142) Pulse Ox 96 O2 Delivery Room Air Capillary Refill : Height, Weight, BMI Height: 6'0.00" Weight: 230lbs. 0.0oz. [id number]; 29.83 BMI Method: General Appearance: No Apparent Distress HEENT: Normal ENT Inspection Neck: Supple Respiratory: Lungs Clear Cardiovascular: Regular Rate, Rhythm Gastrointestinal: Normal Bowel Sounds, Non Tender, Soft Rectal: Deferred Back: No CVA Tenderness Extremity: Non Tender, No Calf Tenderness, No Pedal Edema Neurologic/Psychiatric: Alert, Oriented x3 Skin: Warm/Dry Comments Laboratory Tests 01/30/21 21:00: White Blood Count 9.6, Red Blood Count 4.24L, Hemoglobin 13.5, Hematocrit 40, Mean Corpuscular Volume 93, Mean Corpuscular Hemoglobin 32, Mean Corpuscular Hemoglobin Concent 34, Red Cell Distribution Width 13.2, Platelet Count 200, Mean Platelet Volume 10.4, Immature Granulocyte % (Auto) 0, Neutrophils (%) (Auto) 68, Lymphocytes (%) (Auto) 17, Monocytes (%) (Auto) 10, Eosinophils (%) (Auto) 4, Basophils (%) (Auto) 1, Neutrophils # (Auto) 6.6, Lymphocytes # (Auto) 1.6, Monocytes # (Auto) 1.0, Eosinophils # (Auto) 0.4H, Basophils # (Auto) 0.1, Immature Granulocyte # (Auto) 0.0, Sodium Level 134L, Potassium Level 4.2, Chloride Level 98, Carbon Dioxide Level 25, Anion Gap 11, Blood Urea Nitrogen 7, Creatinine 0.83, Estimat Glomerular Filtration Rate 88, BUN/Creatinine Ratio 8, Glucose Level 139H, Calcium Level 9.5, Corrected Calcium 9.7, Total Bilirubin 0.5, Aspartate Amino Transf (AST/SGOT) 19, Alanine Aminotransferase (ALT/SGPT) 22, Alkaline Phosphatase 51, Total Protein 6.9, Albumin 3.8 01/30/21 21:55: Urine Color YELLOW, Urine Clarity CLEAR, Urine pH 7.0, Urine Specific Sophia 1.025H, Urine Protein NEGATIVE, Urine Glucose (UA) NEGATIVE, Urine Ketones NEGATIVE, Urine Nitrite NEGATIVE, Urine Bilirubin NEGATIVE, Urine Urobilinogen 0.2, Urine Leukocyte Esterase NEGATIVE, Urine RBC (Auto) NEGATIVE, Urine RBC NONE, Urine WBC NONE, Urine Squamous Epithelial Cells NONE, Urine Renal Epithelial Cells NONE, Urine Crystals NONE, Urine Bacteria NEGATIVE, Urine Casts NONE, Urine Mucus NEGATIVE, Urine Culture Indicated NO 01/31/21 05:05: White Blood Count 15.5H, Red Blood Count 4.64, Hemoglobin 14.6, Hematocrit 43, Mean Corpuscular Volume 92, Mean Corpuscular Hemoglobin 32, Mean Corpuscular H emoglobin Concent 34, Red Cell Distribution Width 13.5, Platelet Count 196, Mean Platelet Volume 10.6, Immature Granulocyte % (Auto) 0, Neutrophils (%) (Auto) 90H, Lymphocytes (%) (Auto) 4L, Monocytes (%) (Auto) 6, Eosinophils (%) (Auto) 0, Basophils (%) (Auto) 0, Neutrophils # (Auto) 13.9H, Lymphocytes # (Auto) 0.6L , Monocytes # (Auto) 0.9, Eosinophils # (Auto) 0.0, Basophils # (Auto) 0.0, Immature Granulocyte # (Auto) 0.1, Sodium Level 132L, Potassium Level 3.9, Chloride Level 99, Carbon Dioxide Level 20L, Anion Gap 13, Blood Urea Nitrogen 6L, Creatinine 0.76, Estimat Glomerular Filtration Rate 97, BUN/Creatinine Ratio 8, Glucose Level 160H, Calcium Level 9.1, Neutrophils % (Manual) 83, Lymphocytes % (Manual) 4, Monocytes % (Manual) 3, Metamyelocytes % 1, Band Neutrophils 3 Assessment/Plan Assessment and Plan 1. Hypertensive Urgency with Hypertensive Encephalopathy--start oral metoprolol over propranolol as will control BP better and tremor looks like Parkinson's tremor as is pill rolling vs essential, add oral hydralazine and DC catapres patch 2. DMII--start accuchecks with SSI, will need to hold metformin for 24hrs due to IV contrast 3. Hyperlipidemia--restart atorvastatin 4. Dyspepsia--add pepcid 5. Weakness--up to chair and start PT tomorrow Admission Diagnosis Admission Status: Inpatient Order (span 2 midnights) Reason for Inpatient Admission: Will need at least 48hrs of monitoring BP and adjusing BP meds Clinical Quality Measures AMI/AHF: ASA po Prior to arrival: LUCILLE Lu DO Jan 31, 2021 11:39
[2021-01-31] MEDS ORDERED: hydrALAZINE (APRESOLINE) 25 MG TAB PO ONE (11:45)
[2021-01-31] MEDS ORDERED: MILK OF MAGNESIA 400 MG/5 ML 30 ML UDC PO PRN (11:45)
[2021-01-31] MEDS ORDERED: PATIENT MAY USE OWN MEDS, ALL MC SCH (11:45)
[2021-01-31] MEDS ORDERED: FAMOTIDINE 20 MG (PEPCID) TABLET PO ONE (11:45)
[2021-01-31] MEDS: hydrALAZINE (APRESOLINE) 25 MG TAB PO SCH ×2 (14:00→21:37)
[2021-01-31] MEDS ORDERED: inSUlin ASPART (NovoLOG) 1 UNIT/0.01 ML (CHARGE PER UNIT) SC SCH (15:00)
[2021-01-31] MEDS: inSUlin ASPART (NovoLOG) 1 UNIT/0.01 ML (CHARGE PER UNIT) SC SCH ×2 (17:00→21:37)
[2021-01-31] MEDS: FAMOTIDINE 20 MG (PEPCID) TABLET PO SCH (19:30)
[2021-01-31] MEDS: AtorvaSTATin TABLET 10 MG TABLET PO SCH (19:30)
[2021-01-31] MEDS: ASPIRIN E.C. 81 MG (ECOTRIN) TAB PO SCH (19:31)
[2021-01-31] MEDS: SENNA W/DOCUSATE (SENOKOT S) TABLET PO SCH (19:31)
[2021-02-01] VITALS (8 sets, daily range): BP systolic 127–228; BP diastolic 59–102
[2021-02-01] MEDS: hydrALAZINE (APRESOLINE) 25 MG TAB PO SCH ×3 (05:44→21:20)
[2021-02-01] MEDS: inSUlin ASPART (NovoLOG) 1 UNIT/0.01 ML (CHARGE PER UNIT) SC SCH ×4 (06:03→22:25)
[2021-02-01] MEDS: FAMOTIDINE 20 MG (PEPCID) TABLET PO SCH ×2 (08:31→20:06)
[2021-02-01] MEDS: SENNA W/DOCUSATE (SENOKOT S) TABLET PO SCH ×2 (08:31→20:06)
--- NOTE | 2021-02-01 09:16 | Progress Note ---
Subjective Subjective Date Seen by Provider: Feb 01, 2021 Time Seen by Provider: 09:00 PT REPORTS THAT HE IS FEELING BETTER TODAY. HE DENIES CHEST PAIN, SHORTNESS OF BREATH. HE DENIES ABDOMINAL PAIN, NAUSEA, DIZZINESS. HE REPORTS THAT HE IS UNABLE TO TOLERATE THE HIGHER DOSE OF CLONIDINE DUE TO SEVERE DRY MOUTH. Review of Systems General: No Chills; Fatigue, Malaise HEENT: No Sore Throat Pulmonary: No Dyspnea, No Cough Cardiovascular: No: Chest Pain, Palpitations Gastrointestinal: No: Nausea Genitourinary: No Dysuria; Frequency Neurological: Weakness; No: Confusion Objective Exam Vital Signs Vital Signs Date Time Temp Pulse Resp B/P (MAP) Pulse Ox O2 Delivery O2 Flow Rate FiO2 02/01/21 07:55 95 Room Air 02/01/21 07:40 36.1 55 16 159/78 (105) 96 Nasal Cannula 2.00 02/01/21 07:00 46 02/01/21 05:52 93 Nasal Cannula 2.00 02/01/21 04:00 95 Nasal Cannula 2.00 02/01/21 03:32 63 15 142/78 (99) 96 Nasal Cannula 2.00 02/01/21 01:00 60 02/01/21 00:00 36.9 49 14 127/59 (81) 95 Nasal Cannula 2.00 02/01/21 00:00 95 Nasal Cannula 2.00 01/31/21 20:00 36.4 49 20 110/51 (70) 96 Nasal Cannula 2.00 01/31/21 20:00 95 Nasal Cannula 2.00 01/31/21 19:00 59 01/31/21 15:34 95 Nasal Cannula 2.00 01/31/21 15:32 36.5 56 18 110/78 (89) 92 Nasal Cannula 2.00 01/31/21 13:00 65 01/31/21 12:15 95 Nasal Cannula 2.00 01/31/21 12:00 37.1 62 18 137/71 (93) 96 Nasal Cannula 2.00 I & O 02/01/21 06:59 Intake Total 950 ml Output Total 350 ml Balance 600 ml General Appearance: No Apparent Distress, WD/WN HEENT: PERRL/EOMI, Normal ENT Inspection Neck: Full Range of Motion, Supple Respiratory: Chest Non Tender, Lungs Clear, Normal Breath Sounds, No Respiratory Distress Cardiovascular: Regular Rate, Rhythm Gastrointestinal: Normal Bowel Sounds, Non Tender, Soft Rectal: Deferred Back: Normal Inspection Extremity: Normal Capillary Refill, Normal Range of Motion, Non Tender, No Calf Tenderness, Pedal Edema (TRACE AT ANKLES) Neurologic/Psychiatric: Alert, Oriented x3 Skin: Normal Color, Warm/Dry Results Lab Laboratory Tests 01/31/21 17:01: Glucometer 178H 01/31/21 20:33: Glucometer 136H 02/01/21 05:46: Glucometer 124H Assessment/Plan Assessment/Plan Admission Dx HYPERTENSIVE ENCEPHALOPATHY HYPERTENSIVE CRISIS CHRONIC HYPERTENSION MEDICATION INTOLERANCE CORONARY ARTERY DISEASE DIABETES MELLITUS CHRONIC HYPERLIPIDEMIA ESSENTIAL TREMOR Assessment and Plan HYPERTENSIVE ENCEPHALOPATHY HYPERTENSIVE CRISIS CHRONIC HYPERTENSION MEDICATION INTOLERANCE CORONARY ARTERY DISEASE DIABETES MELLITUS CHRONIC HYPERLIPIDEMIA ESSENTIAL TREMOR HYPERTENSIVE ENCEPHALOPATHY WITH HYPERTENSIVE CRISIS AND CHRONIC HYPERTENSION - MEDICATION INTOLERANCE- - ARIANNE HAS BEEN THROUGH MULTIPLE MEDICATION REGIMENS PRESCRIBED BY MYSELF AND DR. LEGER - PT REPORTS THAT HE CANNOT TAKE CLONIDINE DUE TO DRY MOUTH (HE WAS ON 0.3MG PATCH), HE ALSO CANNOT TAKE LOSARTAN DUE TO PREVIOUS SIDE EFFECT FROM TELMISARTAN. - WILL DEFER TO CARDIOLOGY FOR MEDICATION MANAGEMENT - PT ON METOPROLOL AND HYDRALAZINE CORONARY ARTERY DISEASE - SUPPORTIVE CARE DIABETES MELLITUS - HOLD METFORMIN FOR TODAY AND WILL RESTART TOMORROW - HAD CONTRAST ON DAY OF ADMISSION. CHRONIC HYPERLIPIDEMIA - RESTART STATIN THERAPY ESSENTIAL TREMOR - PT HAD IMPROVED SYMPTOMS ON PROPRANOLOL Clinical Quality Measures AMI/AHF: ASA po Prior to arrival: JOSH Mendoza MD Feb 01, 2021 09:16
[2021-02-01] MEDS: meTOprolol SUCCINATE 100 MG (TOPROL XL) TAB PO SCH (09:20)
[2021-02-01] MEDS ORDERED: FLEET ENEMA ADULT 1 EA BTL PR PRN (09:30)
[2021-02-01] MEDS ORDERED: LACTULOSE SYRUP 10GM/15ML (ENULOSE) 30ML UDC PO ONE (09:30)
[2021-02-01] MEDS ORDERED: HYDR-3922 PO (10:53)
[2021-02-01] MEDS ORDERED: PROP60CA PO (10:53)
[2021-02-01] MEDS ORDERED: CLON1PAT34 TD (10:53)
[2021-02-01] MEDS: hydrALAZINE (APESOLINE) 20 MG/ML VIAL IV PRN ×2 (19:36→23:55)
[2021-02-01] MEDS: AtorvaSTATin TABLET 10 MG TABLET PO SCH (20:06)
[2021-02-01] MEDS: ASPIRIN E.C. 81 MG (ECOTRIN) TAB PO SCH (20:07)
[2021-02-01] MEDS ORDERED: meTOprolol 5 MG/5 ML (LOPRESSOR) VIAL IV ONE (22:00)
[2021-02-01] MEDS ORDERED: meTOprolol 5 MG/5 ML (LOPRESSOR) VIAL ONE (22:06)
[2021-02-01] MEDS: ACETAMINOPHEN 325 MG TABLET PO PRN (23:28)
[2021-02-02] VITALS (8 sets, daily range): BP systolic 147–189; BP diastolic 68–89
[2021-02-02] MEDS: inSUlin ASPART (NovoLOG) 1 UNIT/0.01 ML (CHARGE PER UNIT) SC SCH ×4 (05:31→21:35)
[2021-02-02] MEDS: hydrALAZINE (APRESOLINE) 25 MG TAB PO SCH ×3 (06:36→20:27)
[2021-02-02] MEDS: metFORMIN XR 500 MG (GLUCOPHAGE XR) TAB PO SCH ×2 (06:36→16:09)
[2021-02-02] MEDS ORDERED: metFORMIN XR 500 MG (GLUCOPHAGE XR) TAB PO SCH (07:00)
[2021-02-02] MEDS: meTOprolol SUCCINATE 100 MG (TOPROL XL) TAB PO SCH (07:44)
[2021-02-02] MEDS: SENNA W/DOCUSATE (SENOKOT S) TABLET PO SCH ×2 (07:44→20:25)
[2021-02-02] MEDS: FAMOTIDINE 20 MG (PEPCID) TABLET PO SCH (07:44)
[2021-02-02] MEDS ORDERED: ONDANSETRON 4 MG/2 ML (SDV) Z0FRAN IVP ONE (08:00)
[2021-02-02] MEDS ORDERED: ONDANSETRON 4 MG/2 ML (SDV) Z0FRAN IVP NR (08:00)
--- NOTE | 2021-02-02 09:16 | Progress Note ---
Subjective Subjective Date Seen by Provider: Feb 02, 2021 Time Seen by Provider: 08:40 PT HAD A ROUGH NIGHT LAST NIGHT - HAD NAUSEA AND EMESIS - THIS DOLLYMAN WAS NOT CONTACTED ABOUT THE NAUSEA. PT'S BP WAS ELEVATED AND PT WAS GIVEN A DOSE OF LOPRESSOR AND HYDRALAZINE. Review of Systems General: No Chills; Fatigue, Malaise HEENT: No Sore Throat Pulmonary: No Dyspnea, No Cough Cardiovascular: No: Chest Pain, Palpitations Gastrointestinal: No: Nausea Genitourinary: No Dysuria; Frequency Neurological: Weakness; No: Confusion Objective Exam Vital Signs Vital Signs Date Time Temp Pulse Resp B/P (MAP) Pulse Ox O2 Delivery O2 Flow Rate FiO2 02/02/21 08:45 99 Nasal Cannula 2.00 02/02/21 08:27 Nasal Cannula 2.00 02/02/21 08:00 36.9 02/02/21 07:41 82 19 183/89 (120) 99 Nasal Cannula 2.00 02/02/21 07:00 81 02/02/21 05:27 92 18 170/89 (116) 100 Nasal Cannula 2.00 02/02/21 04:05 37.0 96 22 147/86 (106) 100 Nasal Cannula 2.00 02/02/21 03:36 Nasal Cannula 2.00 02/02/21 01:00 94 02/02/21 00:56 Nasal Cannula 2.00 02/02/21 00:44 94 24 156/82 (106) 98 Nasal Cannula 2.00 02/01/21 21:20 80 24 186/89 (121) 98 Nasal Cannula 2.00 02/01/21 20:23 63 24 193/93 (126) 94 Nasal Cannula 2.00 02/01/21 20:00 Nasal Cannula 2.00 02/01/21 19:44 97 Nasal Cannula 2.00 02/01/21 19:05 37.0 60 24 225/102 (143) 97 Nasal Cannula 2.00 02/01/21 19:00 63 02/01/21 18:02 Nasal Cannula 2.00 02/01/21 15:50 37.1 55 20 167/73 (104) 93 Room Air 02/01/21 15:13 Room Air 02/01/21 13:14 37.1 02/01/21 12:18 51 12 160/89 (112) 92 Room Air 02/01/21 12:00 Room Air 02/01/21 12:00 58 I & O 02/02/21 07:00 Intake Total 650 ml Output Total 320 ml Balance 330 ml General Appearance: No Apparent Distress, WD/WN HEENT: PERRL/EOMI, Normal ENT Inspection Neck: Full Range of Motion, Supple Respiratory: Chest Non Tender, Lungs Clear, Normal Breath Sounds, No Respiratory Distress Cardiovascular: Regular Rate, Rhythm Gastrointestinal: Normal Bowel Sounds, Non Tender, Soft Rectal: Deferred Back: Normal Inspection Extremity: Normal Capillary Refill, Normal Range of Motion, Non Tender, No Calf Tenderness, Pedal Edema (TRACE AT ANKLES) Neurologic/Psychiatric: Alert, Oriented x3 Skin: Normal Color, Warm/Dry Results Lab Laboratory Tests 02/01/21 16:00: Glucometer 157H 02/01/21 20:34: Glucometer 161H 02/02/21 05:30: Glucometer 150H Assessment/Plan Assessment/Plan Admission Dx HYPERTENSIVE ENCEPHALOPATHY HYPERTENSIVE CRISIS CHRONIC HYPERTENSION MEDICATION INTOLERANCE CORONARY ARTERY DISEASE DIABETES MELLITUS CHRONIC HYPERLIPIDEMIA ESSENTIAL TREMOR Assessment and Plan HYPERTENSIVE ENCEPHALOPATHY HYPERTENSIVE CRISIS CHRONIC HYPERTENSION MEDICATION INTOLERANCE CORONARY ARTERY DISEASE DIABETES MELLITUS CHRONIC HYPERLIPIDEMIA ESSENTIAL TREMOR HYPERTENSIVE ENCEPHALOPATHY WITH HYPERTENSIVE CRISIS AND CHRONIC HYPERTENSION - MEDICATION INTOLERANCE- - ARIANNE HAS BEEN THROUGH MULTIPLE MEDICATION REGIMENS PRESCRIBED BY MYSELF AND DR. LEGER - PT REPORTS THAT HE CANNOT TAKE CLONIDINE DUE TO DRY MOUTH (HE WAS ON 0.3MG PATCH), HE ALSO CANNOT TAKE LOSARTAN DUE TO PREVIOUS SIDE EFFECT FROM TELMISARTAN. - WILL DEFER TO CARDIOLOGY FOR MEDICATION MANAGEMENT - PT ON METOPROLOL AND HYDRALAZINE - - DISCUSSED WITH DR. LEGER- WE WILL RESTART CLONIDINE PATCH AT 0.1MG, MONITOR SYMPTOMS, WILL HAVE TO BE COMFORTABLE WITH PRESSURES IN THE 160 - 170 RANGE IF TOLERATED BY PATIENT. CORONARY ARTERY DISEASE - SUPPORTIVE CARE DIABETES MELLITUS - RESTART METFORMIN - HE HAD CONTRAST ON DAY OF ADMISSION. CHRONIC HYPERLIPIDEMIA - RESTART STATIN THERAPY ESSENTIAL TREMOR - PT HAD IMPROVED SYMPTOMS ON PROPRANOLOL Admission Dx HYPERTENSIVE ENCEPHALOPATHY HYPERTENSIVE CRISIS CHRONIC HYPERTENSION MEDICATION INTOLERANCE CORONARY ARTERY DISEASE DIABETES MELLITUS CHRONIC HYPERLIPIDEMIA ESSENTIAL TREMOR Clinical Quality Measures Admission Status Admission Dx HYPERTENSIVE ENCEPHALOPATHY HYPERTENSIVE CRISIS CHRONIC HYPERTENSION MEDICATION INTOLERANCE CORONARY ARTERY DISEASE DIABETES MELLITUS CHRONIC HYPERLIPIDEMIA ESSENTIAL TREMOR AMI/AHF: ASA po Prior to arrival: JOSH Mendoza MD Feb 02, 2021 09:16
[2021-02-02] MEDS ORDERED: cloNIDine 0.1 MG PATCH (CATAPRES TTS) TDSY TD SCH (10:00)
[2021-02-02] MEDS: hydrALAZINE (APESOLINE) 20 MG/ML VIAL IV PRN (10:07)
[2021-02-02] MEDS: ONDANSETRON 4 MG/2 ML (SDV) Z0FRAN IVP PRN ×2 (10:07→16:08)
[2021-02-02] MEDS ORDERED: PATCH REMOVAL TP SCH (10:15)
[2021-02-02] MEDS: LOSARTAN 50 MG (COZAAR) TAB PO SCH (11:09)
--- NOTE | 2021-02-02 11:27 | Consultation-Cardiology ---
HPI-Cardiology Cardiology Consultation Date of Consultation 02/02/21 Date of Admission Time Seen by Provider: 08:40 Indication: Hypertensive encephalopathy HPI 85-year-old gentleman with history of labile hypertension, difficult to control. Intolerant to multiple medication. Patient came to the hospital complaining of change in mental status lethargy and severe hypertension. He denies any chest pain. Denies any syncope. Has been here for the past 24 hours and blood pressure is still elevated, having difficulty tolerating multiple blood pressure medication. Home Medications & Allergies Allergies: Coded Allergies: hydrocodone (Unverified Allergy, Mild, 03/22/07) amlodipine (Unverified Allergy, Unknown, 10/25/13) benazepril (Unverified Allergy, Unknown, 10/25/13) codeine (Verified Allergy, Unknown, 09/02/05) telmisartan (Unverified Allergy, Unknown, 10/25/13) Home Medication List Reviewed: Yes [id number] Hx Patient Social History Marital Status: Employed/Student: retired Smoking Status: Unknown if Ever Smoked Type Used: Cigarettes 2nd Hand Smoke Exposure: No Recent Hopitalizations: Yes Have you traveled recently?: No Alcohol Use?: Unable to obtain Immunizations Up To Date Date of Pneumonia Vaccine: July 02, 2009 Date of Influenza Vaccine: Jan 01, 2021 Past Medical History discussed below Family Medical History Significant Family History: Heart Disease, Hypertension Review of Systems-General Review of Systems Constitutional: malaise, weakness EENTM: No see HPI, No no symptoms reported, No ear discharge, No hearing loss, No ear pain, No blurred vision, No double vision, No eye pain, No tearing, No vision loss, No dental problems, No hoarseness, No mouth pain, No mouth swelling, No epistaxis, No nose congestion, No nose pain, No throat pain, No throat swelling, No other Respiratory: see HPI; No cough, No dyspnea on exertion, No hemoptysis, No orthopnea, No phlegm, No short of breath, No stridor, No wheezing, No other Cardiovascular: see HPI; No chest pain, No edema, No Hx of Intervention, No palpitations, No syncope, No vascular heart diseas; other (HTN) Gastrointestinal: abdominal pain Genitourinary: No no symptoms reported, No see HPI, No decreased output, No discharge, No dysuria, No frequency, No hematuria, No hesitancy, No incontinence, No nocturia, No pain, No other Musculoskeletal: muscle weakness Skin: No no symptoms reported, No see HPI, No change in color, No change in hair/nails, No dryness, No hx of skin cancer, No lesions, No lumps, No pruritus, No rash, No other Psychiatric/Neurological: Anxiety, Tremors Reviewed Test Results Reviewed Test Results Lab Laboratory Tests Test 02/01/21 16:00 02/01/21 20:34 02/02/21 05:30 Range/Units Glucometer 157 H 161 H 150 H 70-110 MG/DL Physical Exam Physical Exam Vital Signs Vital Signs - First Documented 01/30/21 01/31/21 20:50 12:00 Temp 36.9 Pulse 51 Resp 19 B/P (MAP) 236/95 (142) Pulse Ox 96 O2 Delivery Room Air O2 Flow Rate 2.00 Capillary Refill : Height, Weight, BMI Height: 6'0.00" Weight: 230lbs. 0.0oz. [id number]; 29.83 BMI Method: General Appearance: No Apparent Distress, WD/WN HEENT: PERRL/EOMI, Normal ENT Inspection Neck: Full Range of Motion, Supple Respiratory: Chest Non Tender, Lungs Clear, Normal Breath Sounds, No Respiratory Distress Cardiovascular: Regular Rate, Rhythm Gastrointestinal: Normal Bowel Sounds, Non Tender, Soft Rectal: Deferred Back: Normal Inspection Extremity: Normal Capillary Refill, Normal Range of Motion, Non Tender, No Calf Tenderness, Pedal Edema (TRACE AT ANKLES) Neurologic/Psychiatric: Alert, Oriented x3 Skin: Normal Color, Warm/Dry A/P-Cardiology Admission Diagnosis Hypertensive encephalopathy Malignant hypertension Sinus node dysfunction Chronic renal insufficiency Assessment/Plan Malignant hypertension with hypertensive encephalopathy, very difficult to control, intolerant to multiple medication Patient was intolerant to amlodipine due to sinus bradycardia and multiple pauses with first-degree AV block and right bundle branch block. Intolerance to Cozaar with leg pain and cough. Intolerance to Micardis with leg and ankle swelling. Intolerance to Lotrel with swelling and cough. Intolerance to diltiazem. Intolerant to clonidine 0.3 mg with dry mouth and fatigue I will restart clonidine at 0.1 mg continue on hydralazine. I am not sure if he will tolerate Toprol 100 mg with his severe bradycardia. We will monitor and evaluate, recommend restarting losartan if he can tolerate it. Sinus node dysfunction, sinus bradycardia with generalized fatigue and loss of energy. Previously intolerant to multiple medication, I am still considering possibility of pacemaker if I have to use high dose of calcium channel blockers and beta-blockers to achieve adequate blood pressure control Coronary artery disease Coronary artery bypass surgery in August 2005 at [facility]. Cardiac catheterization was in March 2007. It showed severe left coronary artery disease. There was a patent graft to an obtuse marginal branch of the left circumflex artery and a patent graft to the distal left anterior descending artery. A saphenous vein graft to the mid left anterior descending artery was occluded. The right coronary artery was dominant and had mild to moderate disease. Left ventricular ejection fraction was 60% and there was minimal localized anterolateral hypokinesis. Left ventricular end-diastolic pressure was normal. Stress test July 2018 revealed no ischemia or infarct. Continue to monitor, no changes are recommended Echocardiogram was done on April 30, 2020 showing normal LV size, EF 55 to 65%, left atrium 5.6 cm, mild MR, PA pressure 35 mmHg. Continue to monitor Holter monitor done in July 2020 showing sinus rhythm with episodes of bradycardia, sinus pauses with escape junctional bradycardia and first-degree AV block with right bundle branch block, occasional PVCs and PACs and short PAT. Sinus node dysfunction, History of significant bradycardia, currently taking metoprolol 100 mg that was started on February 01, 2021. We will monitor his heart rate closely History of right bundle branch block. Carotid artery stenosis, hx of L CEA in 2005, CTA of head and neck done Nov 2020 showing bilateral nonobstructive disease Maturity onset diabetes mellitus being managed by Dr. Roberson. Hyperlipidemia, maintained on Lipitor, evaluate lipid profile Chronic tremor treated with beta-jesica therapy, Has been on Inderal in the past, it was stopped on this admission, we will evaluate if he needs to go back on the Inderal. Sleep apnea syndrome; patient does not wish to comply with therapy. Chronic left sided hearing loss Intolerance to LILIAN inhibitors and ARBs due to multiple symptoms, currently tolerating losartan. Bilateral Dupytren's contractures of hands S/p L carpal tunnel surgery by Dr Grider on Oct 30, 2013. Bilateral leg discomfort, but ABIs of 01/06/15 were normal Chronic mild Clinical Quality Measures AMI/AHF: ASA po Prior to arrival: LISANDRO Thapa MD Feb 02, 2021 11:27
[2021-02-02] MEDS ORDERED: SUCRALFATE 1 GM (CARAFATE) TAB PO PRN (11:30)
[2021-02-02] MEDS: PANTOPRAZOLE 40 MG (PROTONIX) VIAL IV SCH ×2 (11:41→20:25)
[2021-02-02] MEDS: ASPIRIN E.C. 81 MG (ECOTRIN) TAB PO SCH (20:25)
[2021-02-02] MEDS: AtorvaSTATin TABLET 10 MG TABLET PO SCH (20:25)
[2021-02-02] MEDS: ACETAMINOPHEN 325 MG TABLET PO PRN (22:45)
[2021-02-03 04:00] VITALS: BP 171/96
[2021-02-03] MEDS: inSUlin ASPART (NovoLOG) 1 UNIT/0.01 ML (CHARGE PER UNIT) SC SCH ×2 (06:11→11:25)
[2021-02-03] MEDS: hydrALAZINE (APRESOLINE) 25 MG TAB PO SCH (06:11)
[2021-02-03] MEDS: metFORMIN XR 500 MG (GLUCOPHAGE XR) TAB PO SCH (06:11)
[2021-02-03 08:00] VITALS: BP 173/96
--- NOTE | 2021-02-03 08:48 | Progress Note ---
Subjective Subjective Date Seen by Provider: Feb 03, 2021 Time Seen by Provider: 08:40 Review of Systems General: No Chills; Fatigue, Malaise HEENT: No Sore Throat Pulmonary: No Dyspnea, No Cough Cardiovascular: No: Chest Pain, Palpitations Gastrointestinal: No: Nausea Genitourinary: No Dysuria; Frequency Neurological: Weakness; No: Confusion Objective Exam Vital Signs Vital Signs Date Time Temp Pulse Resp B/P (MAP) Pulse Ox O2 Delivery O2 Flow Rate FiO2 02/03/21 07:00 51 02/03/21 04:00 36.9 53 16 171/96 (121) 96 02/03/21 04:00 Nasal Cannula 2.00 02/03/21 01:00 57 02/03/21 00:00 Nasal Cannula 2.00 02/02/21 23:09 37.3 59 19 160/68 (98) 100 02/02/21 20:26 37.4 61 18 169/74 (105) 100 02/02/21 20:00 Nasal Cannula 2.00 02/02/21 19:00 56 02/02/21 15:54 37.5 70 20 161/78 (105) 100 02/02/21 15:20 Nasal Cannula 2.00 02/02/21 12:59 Nasal Cannula 2.00 02/02/21 12:24 76 02/02/21 12:00 73 21 189/80 (116) 97 Nasal Cannula 2.00 I & O 02/03/21 07:00 Intake Total 650 ml Output Total 500 ml Balance 150 ml General Appearance: No Apparent Distress, WD/WN HEENT: PERRL/EOMI, Normal ENT Inspection Neck: Full Range of Motion, Supple Respiratory: Chest Non Tender, Lungs Clear, Normal Breath Sounds, No Respiratory Distress Cardiovascular: Regular Rate, Rhythm Gastrointestinal: Normal Bowel Sounds, Non Tender, Soft Rectal: Deferred Back: Normal Inspection Extremity: Normal Capillary Refill, Normal Range of Motion, Non Tender, No Calf Tenderness, Pedal Edema (TRACE AT ANKLES) Neurologic/Psychiatric: Alert, Oriented x3 Skin: Normal Color, Warm/Dry Results Lab Laboratory Tests 02/02/21 11:59: Glucometer 155H 02/02/21 16:04: Glucometer 123H 02/02/21 20:44: Glucometer 144H Assessment/Plan Assessment/Plan Admission Dx HYPERTENSIVE ENCEPHALOPATHY HYPERTENSIVE CRISIS CHRONIC HYPERTENSION MEDICATION INTOLERANCE CORONARY ARTERY DISEASE DIABETES MELLITUS CHRONIC HYPERLIPIDEMIA ESSENTIAL TREMOR Assessment and Plan HYPERTENSIVE ENCEPHALOPATHY HYPERTENSIVE CRISIS CHRONIC HYPERTENSION MEDICATION INTOLERANCE CORONARY ARTERY DISEASE DIABETES MELLITUS CHRONIC HYPERLIPIDEMIA ESSENTIAL TREMOR HYPERTENSIVE ENCEPHALOPATHY WITH HYPERTENSIVE CRISIS AND CHRONIC HYPERTENSION - MEDICATION INTOLERANCE- - ARIANNE HAS BEEN THROUGH MULTIPLE MEDICATION REGIMENS PRESCRIBED BY MYSELF AND DR. LEGER - PT REPORTS THAT HE CANNOT TAKE CLONIDINE DUE TO DRY MOUTH (HE WAS ON 0.3MG PATCH), HE ALSO CANNOT TAKE LOSARTAN DUE TO PREVIOUS SIDE EFFECT FROM TELMISARTAN. - WILL DEFER TO CARDIOLOGY FOR MEDICATION MANAGEMENT - PT ON METOPROLOL AND HYDRALAZINE - - DISCUSSED WITH DR. LEGER- WE WILL RESTART CLONIDINE PATCH AT 0.1MG, MONITOR SYMPTOMS, WILL HAVE TO BE COMFORTABLE WITH PRESSURES IN THE 160 - 170 RANGE IF TOLERATED BY PATIENT. CORONARY ARTERY DISEASE - SUPPORTIVE CARE DIABETES MELLITUS - RESTART METFORMIN - HE HAD CONTRAST ON DAY OF ADMISSION. CHRONIC HYPERLIPIDEMIA - RESTART STATIN THERAPY ESSENTIAL TREMOR - PT HAD IMPROVED SYMPTOMS ON PROPRANOLOL Admission Dx HYPERTENSIVE ENCEPHALOPATHY HYPERTENSIVE CRISIS CHRONIC HYPERTENSION MEDICATION INTOLERANCE CORONARY ARTERY DISEASE DIABETES MELLITUS CHRONIC HYPERLIPIDEMIA ESSENTIAL TREMOR Clinical Quality Measures Admission Status Admission Dx HYPERTENSIVE ENCEPHALOPATHY HYPERTENSIVE CRISIS CHRONIC HYPERTENSION MEDICATION INTOLERANCE CORONARY ARTERY DISEASE DIABETES MELLITUS CHRONIC HYPERLIPIDEMIA ESSENTIAL TREMOR AMI/AHF: ASA po Prior to arrival: JOSH Mendoza MD Feb 03, 2021 08:48
[2021-02-03] MEDS: PANTOPRAZOLE 40 MG (PROTONIX) VIAL IV SCH (08:59)
[2021-02-03] MEDS: SENNA W/DOCUSATE (SENOKOT S) TABLET PO SCH (08:59)
[2021-02-03] MEDS: LOSARTAN 50 MG (COZAAR) TAB PO SCH (09:00)
[2021-02-03] MEDS: meTOprolol SUCCINATE 100 MG (TOPROL XL) TAB PO SCH (09:00)
--- NOTE | 2021-02-03 10:14 | Cardiology Progress Note ---
Subjective Date Seen by Provider: Feb 03, 2021 Time Seen by Provider: 10:12 Subjective/Events-last exam Patient was seen at bedside, laying down comfortably, denied any chest pain or shortness of breath. Review of Systems General: No Chills, No Night Sweats, No Fatigue, No Malaise, No Appetite, No Other HEENT: No Head Aches, No Visual Changes, No Eye Pain, No Ear Pain, No Dyspha jose, No Sinus Congestion, No Post Nasal Drip, No Sore Throat, No Other Pulmonary: No Dyspnea, No Cough, No Pleuritic Chest Pain, No Other Cardiovascular: No: Chest Pain, Palpitations, Orthopnea, Paroxysmal Noc. D yspnea, Edema, Lt Headedness, Other Objective-Cardiology Exam Last Set of Vital Signs Vital Signs 02/03/21 02/03/21 04:00 07:00 Temp 36.9 Pulse 51 Resp 16 B/P (MAP) 171/96 (121) Pulse Ox 96 O2 Delivery Nasal Cannula O2 Flow Rate 2.00 I&O Intake and Output 02/02/21 23:59 Intake Total 600 ml Output Total 720 ml Balance -120 ml Intake Oral 600 ml Output Urine Total 720 ml # Voids 5 General: Alert, Oriented X3, Cooperative HEENT: Atraumatic, PERRLA Neck: Supple, No JVD, No Thyromegaly Lungs: Clear to Auscultation, Normal Air Movement Heart: Normal S1, Normal S2, Other (Systolic murmur at the left sternal border, S3 present) Abdomen: Normal Bowel Sounds, Soft, No Tenderness, No Hepatosplenomegaly, No Masses Extremities: No Clubbing, No Cyanosis, No Edema, Normal Pulses, No Tenderness/Swelling Skin: No Rashes, No Breakdown, No Significant Lesion Neuro: Normal Gait, Normal Speech, Strength at 5/5 X4 Ext, Normal Tone, Sensation Intact Psych/Mental Status: Mental Status NL, Mood NL Results Lab Laboratory Tests Test 02/02/21 11:59 02/02/21 16:04 02/02/21 20:44 Range/Units Glucometer 155 H 123 H 144 H 70-110 MG/DL A/P-Cardiology Admission Diagnosis Hypertensive encephalopathy Malignant hypertension Sinus node dysfunction Chronic renal insufficiency Assessment/Plan Malignant hypertension with hypertensive encephalopathy, very difficult to control, intolerant to multiple medication Patient was intolerant to amlodipine due to sinus bradycardia and multiple pauses with first-degree AV block and right bundle branch block. Intolerance to Cozaar with leg pain and cough. Intolerance to Micardis with leg and ankle swelling. Intolerance to Lotrel with swelling and cough. Intolerance to diltiazem. Intolerant to clonidine 0.3 mg with dry mouth and fatigue Intolerant to Toprol-XL 100 mg due to bradycardia I will restart propranolol at 60 mg, continue on clonidine 0.1 mg and continue on hydralazine. Blood pressure is better controlled, feeling better and asking to go home Okay for discharge and follow-up as an outpatient Sinus node dysfunction, sinus bradycardia with generalized fatigue and loss of energy. Previously intolerant to multiple medication, I am still considering possibility of pacemaker if I have to use high dose of calcium channel blockers and beta-blockers to achieve adequate blood pressure control Coronary artery disease Coronary artery bypass surgery in August 2005 at [facility]. Cardiac catheterization was in March 2007. It showed severe left coronary artery disease. There was a patent graft to an obtuse marginal branch of the left circumflex artery and a patent graft to the distal left anterior descending artery. A saphenous vein graft to the mid left anterior descending artery was occluded. The right coronary artery was dominant and had mild to moderate disease. Left ventricular ejection fraction was 60% and there was minimal localized anterolateral hypokinesis. Left ventricular end-diastolic pressure was normal. Stress test July 2018 revealed no ischemia or infarct. Continue to monitor, no changes are recommended Echocardiogram was done on April 30, 2020 showing normal LV size, EF 55 to 65%, left atrium 5.6 cm, mild MR, PA pressure 35 mmHg. Continue to monitor Holter monitor done in July 2020 showing sinus rhythm with episodes of bradycardia, sinus pauses with escape junctional bradycardia and first-degree AV block with right bundle branch block, occasional PVCs and PACs and short PAT. Sinus node dysfunction, History of significant bradycardia, could not tolerate Toprol due to bradycardia. Was tolerating propranolol at 60 mg as an outpatient. History of right bundle branch block. Carotid artery stenosis, hx of L CEA in 2005, CTA of head and neck done Nov 2020 showing bilateral nonobstructive disease Maturity onset diabetes mellitus being managed by Dr. Roberson. Hyperlipidemia, maintained on Lipitor, evaluate lipid profile Chronic tremor treated with beta-jesica therapy, Has been on Inderal in the past, it was stopped on this admission, we will evaluate if he needs to go back on the Inderal. Sleep apnea syndrome; patient does not wish to comply with therapy. Chronic left sided hearing loss Intolerance to LILIAN inhibitors and ARBs due to multiple symptoms, currently tolerating losartan. Bilateral Dupytren's contractures of hands S/p L carpal tunnel surgery by Dr Grider on Oct 30, 2013. Bilateral leg discomfort, but ABIs of 01/06/15 were normal Chronic mild LISANDRO LEGER MD Feb 03, 2021 10:14
[2021-02-03 12:00] VITALS: BP 154/71
[2021-02-03] MEDS ORDERED: LOSA50TA63 PO (12:53)
[2021-02-03] MEDS ORDERED: SENN1TAB76 PO (12:53)
[2021-02-03] MEDS ORDERED: HYDR-3923 PO (12:53)
[2021-02-03] MEDS ORDERED: CLON1PAT33 TD (12:53)
[2021-02-03] MEDS ORDERED: PANT40TA52 PO (12:54)
--- NOTE | 2021-02-03 12:55 | Discharge Inst-Simple/Standard ---
Discharge Inst-Standard Reconcile Patient Problems Problems Reviewed?: Yes Discharge Medications New, Converted or Re-Newed RX: Transmitted to Pharmacy Patient Instructions/Follow Up Plan of Care/Instructions/FU: 1 wk [facility] [address] burnett Activity as Tolerated: Yes Discharge Diet: Low Sodium Diet Return to The Hospital For: any concern for lifethreatening illness, injury or uncontrolled blood pressure with confusion and weakness JOSH MORENO MD Feb 03, 2021 12:55
--- NOTE | 2021-02-03 12:56 | Discharge Summary ---
Diagnosis/Chief Complaint Date of Admission Feb 01, 2021 at 14:36 Date of Discharge Discharge Date: Feb 03, 2021 Discharge Time: 1400 Discharge Summary Discharge Physical Examination Allergies: Coded Allergies: hydrocodone (Unverified Allergy, Mild, 03/22/07) amlodipine (Unverified Allergy, Unknown, 10/25/13) benazepril (Unverified Allergy, Unknown, 10/25/13) codeine (Verified Allergy, Unknown, 09/02/05) telmisartan (Unverified Allergy, Unknown, 10/25/13) Vitals & I&Os Vital Signs Date Time Temp Pulse Resp B/P (MAP) Pulse Ox O2 Delivery O2 Flow Rate FiO2 02/03/21 12:18 53 02/03/21 12:00 Room Air 02/03/21 12:00 37.0 21 154/71 (98) 94 02/03/21 04:00 2.00 Hospital Course Pending Labs Laboratory Tests 02/03/21 11:13: Glucometer 162 Discharge Instructions to patient/family Please see electronic discharge instructions given to patient. Discharge Medications Reviewed and agree with Discharge Medication list on patient's Discharge Instr uction sheet Clinical Quality Measures AMI/AHF: ASA po Prior to arrival: JOSH Mendoza MD Feb 03, 2021 12:56
[2021-02-03 14:00] VITALS: BP 154/89
[2021-02-03] MEDS ORDERED: hydrALAZINE (APRESOLINE) 25 MG TAB PO SCH (14:00)
[2021-02-03] MEDS ORDERED: PANTOPRAZOLE 40 MG (PROTONIX) TAB PO SCH (21:00)
[2021-02-04] MEDS ORDERED: PROPRANOLOL ER 60 MG CAP (INDERAL LA) PO SCH (09:00)
== END 2021-02-03 14:27 | disposition home or self-care (01) | DRG 78 ==
LOC: EDUNIT# 20:41 → ER 20:43 → CSD 23:10 → OBSVTOIN 02-01 14:36
PROVIDERS: ADMIT Family Medicine; ATTEND Family Medicine
DX: I67.4 Hypertensive encephalopathy (principal); I25.810 Atherosclerosis of coronary artery bypass graft(s) without angina pectoris; I16.0 Hypertensive urgency; I12.9 Hypertensive chronic kidney disease with stage 1 through stage 4 chronic kidney disease, or unspecified chronic kidney disease; E11.22 Type 2 diabetes mellitus with diabetic chronic kidney disease; N18.9 Chronic kidney disease, unspecified; Z79.84 Long term (current) use of oral hypoglycemic drugs; F17.210 Nicotine dependence, cigarettes, uncomplicated; I49.5 Sick sinus syndrome; E78.5 Hyperlipidemia, unspecified; I25.10 Atherosclerotic heart disease of native coronary artery without angina pectoris; R10.13 Epigastric pain; R53.1 Weakness; G25.0 Essential tremor; H54.7 Unspecified visual loss; G47.30 Sleep apnea, unspecified; M72.0 Palmar fascial fibromatosis [Dupuytren]; H91.91 Unspecified hearing loss, right ear; Z97.4 Presence of external hearing-aid; Z95.1 Presence of aortocoronary bypass graft; Z79.82 Long term (current) use of aspirin; Z88.5 Allergy status to narcotic agent; Z88.8 Allergy status to other drugs, medicaments and biological substances
CPT/HCPCS: 36415; 70450; 70496; 70498; 71045; 80048; 80053; 81000; 82947; 85007; 85025; 85027

== ENCOUNTER 2021-03-27 17:38 | Inpatient (IN) | payer MEDICARE, BC ==
[~2021-03-27] VITALS: Ht 182.9 cm; Wt 95.1 kg
[~2021-03-27 17:38] MED LIST changes: +ACET-3075 PO; +CLON1PAT33 TD; +PANT40TA52 PO; +SENN1TAB76 PO
--- NOTE | 2021-03-27 18:23 | Diagnostic Imaging Report ---
EXAMINATION: CT head without contrast. TECHNIQUE: Multiple contiguous axial images were obtained through the brain without the use of intravenous contrast. All CT scans use one or more of the following dose optimizing techniques: automated exposure control, MA and/or KvP adjustment based on patient size and exam type or iterative reconstruction. HISTORY: Aphasia. Concern for acute ischemia. COMPARISON: 01/31/2021. FINDINGS: No large acute territorial ischemia, mass, or hemorrhage. No midline shift or mass effect. Decreased attenuation is seen in the periventricular and subcortical white matter. The ventricles and cortical sulci are prominent. The basilar cisterns are patent and unremarkable. The orbits are normal. Paranasal sinuses are normal. Mastoid air cells are clear. No soft tissue abnormality is seen. No osseus lesions or fractures are seen. IMPRESSION: 1. No large acute territorial ischemia, mass or hemorrhage. 2. Chronic microvascular disease. 3. Generalized parenchymal volume loss. Dictated by: Dictated on workstation # [id number]
[2021-03-27 18:33] LABS: BASOPHILS # (AUTO) 0.1 10^3/uL (0.0-0.1); BASOPHILS % (AUTO) 1 % (0-10); EOSINOPHILS # (AUTO) 0.2 10^3/uL (0.0-0.3); EOSINOPHILS % (AUTO) 2 % (0-10); HEMATOCRIT 43 % (40-54); HEMOGLOBIN 14.2 g/dL (13.3-17.7); LYMPHOCYTES # (AUTO) 2.6 10^3/uL (1.0-4.0); LYMPHOCYTES % (AUTO) 27 % (12-44); MEAN CORPUSCULAR HEMOGLOBIN 31 pg (25-34); MEAN CORPUSCULAR HGB CONC 33 g/dL (32-36); MEAN CORPUSCULAR VOLUME 95 fL (80-99); MEAN PLATELET VOLUME 10.2 fL (9.0-12.2); MONOCYTES # (AUTO) 0.9 10^3/uL (0.0-1.0); MONOCYTES % (AUTO) 10 % (0-12); NEUTROPHILS # (AUTO) 5.8 10^3/uL (1.8-7.8); NEUTROPHILS % (AUTO) 60 % (42-75); PLATELET COUNT 226 10^3/uL (130-400); WHITE BLOOD COUNT 9.6 10^3/uL (4.3-11.0)
--- NOTE | 2021-03-27 18:38 | ED Neurological Problem ---
General Chief Complaint: Neuro-Stroke Like Symptoms Stated Complaint: POSS STROKE Nursing Triage Note: PT BROUGHT IN BY [facility] FOR STROKE LIKE SYMPTOMS. PT APPROX 1.5 HR PT HAD CHANGE IN MENTATION. PER , PT WAS NON VERBAL FOR 6-7 MINUTES. PT HAS HX OF TIAs. BP 233/141. PT IS ALERT AND ORIENTED TO PERSON, PLACE, TIME. HAS CONFUSION WHEN IT COMES TO YEAR, PRESIDENT. PT CAN STATE MONTH AND DAY OF BIRTHDAY, BUT NOT YEAR. Source: patient Exam Limitations: no limitations History of Present Illness Date Seen by Provider: Mar 27, 2021 Time Seen by Provider: 18:00 Initial Comments Patient to ER by EMS from [place] with his and chief complaint that symptoms started about an hour half prior to arrival difficulty remembering things and expressing himself and generalized weakness. EMS noted his blood pressure to be elevated 220s over 110. Nursing staff gave him initial NIH of 2 points 1 for aphasia difficulty naming things and some confusion about memory he cannot member his year. When this examiner got to the room he was able to express clearly both his date of , the date and nominate items. He expresses generalized weakness. Blood pressures 230s over 120. He states his been taking his blood pressure medicine normally. He is not on blood thinners but does take an aspirin daily. He has a history of TIA, hypertension hyperlipidemia followed by Dr. Roberson in Dr. Dempsey, cardiology. Allergies and Home Medications Allergies Coded Allergies: hydrocodone (Unverified Allergy, Mild, 03/22/07) amlodipine (Unverified Allergy, Unknown, 10/25/13) benazepril (Unverified Allergy, Unknown, 10/25/13) codeine (Verified Allergy, Unknown, 09/02/05) telmisartan (Unverified Allergy, Unknown, 10/25/13) Patient Home Medication List Home Medication List Reviewed: Yes Alprazolam (Xanax) 0.25 Mg Tablet, 0.25 MG PO Q6H PRN for ANXIETY, (Reported) Entered as Reported by: VISH GREENE on 03/27/21 2300 Last Action: New Order Aspirin (Aspirin EC) 81 Mg Tablet., 81 MG PO HS, (Reported) Entered as Reported by: FRANSISCA CAMEJO on 01/05/21 1131 Last Action: Last Taken Edited Clonidine (Clonidine TTS 1 Patch) 1 Each Patch.tdwk, 0.1 MG TD Q7D@09 Prescribed by: JOSH ROBERSON on 02/03/211252 Last Action: Last Taken Edited Hydralazine HCl (Hydralazine HCl) 25 Mg Tablet, 37.5 MG PO Q8HR Prescribed by: JOSH ROBERSON on 02/03/21 125 Last Action: Last Taken Edited Losartan Potassium (Losartan Potassium) 50 Mg Tablet, 50 MG PO DAILY Prescribed by: JOSH ROBERSON on 02/03/211252 Last Action: Last Taken Edited Metformin HCl (Metformin HCl ER) 500 Mg Tab.er.24h, 500 MG PO BIDAC, (Reported) Entered as Reported by: FRANSISCA CAMEJO on 01/05/211130 Last Action: Last Taken Edited Pantoprazole Sodium (Pantoprazole Sodium) 40 Mg Tablet.dr, 40 MG PO BID Prescribed by: JOSH ROBERSON on 02/03/21 125 Last Action: Last Taken Edited Propranolol HCl (Propranolol HCl ER) 60 Mg Cap.sa.24h, 60 MG PO DAILY, (Reported) Entered as Reported by: FRANSISCA CAMEJO on 02/01/21 105 Last Action: Last Taken Edited Sennosides/Docusate Sodium (Stool Softener-Laxative Tablet) 1 Each Tablet, 1 EA PO BID Prescribed by: JOSH ROBERSON on 02/03/211252 Sulfamethoxazole/Trimethoprim (Bactrim Ds Tablet) 1 Each Tablet, 1 EACH PO BID, (Reported) Entered as Reported by: VISH GREENE on 03/27/21 2300 Last Action: New Order Ubidecarenone (Co Q-10) 100 Mg Capsule, 100 MG PO DAILY, (Reported) Entered as Reported by: FRANSISCA CAMEJO on 01/05/211130 Last Action: Last Taken Edited Discontinued Medications Atorvastatin Calcium (Atorvastatin Calcium) 10 Mg Tablet, 10 MG PO HS, (Repor rose mary) Discontinued Reason: No Longer Taking Entered as Reported by: FRANSISCA CAMEJO on 01/05/211130 Last Action: Discontinued Review of Systems Review of Systems Constitutional: No chills, No diaphoresis Eyes: Denies Blindness, Denies Blurred Vision Ears, Nose, Mouth, Throat: denies ear pain, denies ear discharge Respiratory: No cough, No short of breath Cardiovascular: No chest pain, No palpitations Gastrointestinal: No abdominal pain, No nausea, No vomiting Genitourinary: No discharge, No dysuria Musculoskeletal: No back pain, No joint pain All Other Systems Reviewed Negative Unless Noted: Yes Past Jywvlmc-Jeypcs-Kwacnc Hx Patient Social History Tobacco Use?: No Use of E-Cig and/or Vaping dev: No Substance use?: No Alcohol Use?: No Pt feels they are or have been: No Immunizations Up To Date First/Initial COVID19 Vaccinat: FEB 2020 Second COVID19 Vaccination Jose: MAR 2020 Third COVID19 Vaccination Date: NOV 2020 Past Medical History Surgery/Hospitalization HX: hernia x3, bilat cea, turp, ortho, niddm, htn, high lipids Surgeries: Yes (MENISCUS REPAIR, TURP, HERNIA X3, bilateral ENDARTERECTOMY,2005) Cardiac, CABG Respiratory: No Cardiac: Yes (CABG X3 VESSELS) Coronary Artery Disease, Peripheral Vascular Neurological: No Reproductive Disorders: No Sexually Transmitted Disease: No Genitourinary: No Gastrointestinal: No Musculoskeletal: No Endocrine: No HEENT: Yes Hearing Impairment: Hard of Hearing, Hearing Aide Right Psychosocial: No Blood Disorders: No Family Medical History Heart Disease, Hypertension Physical Exam Vital Signs Vital Signs - First Documented 03/27/21 17:38 Pulse 61 Resp 9 B/P (MAP) 233/141 (171) Pulse Ox 97 O2 Delivery Room Air Capillary Refill : Less Than 3 Seconds Height, Weight, BMI Height: 6'0.00" Weight: 230lbs. 0.0oz. 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, no motor/sensory deficits, alert, normal mood/affect, oriented x 3 Crainal Nerves: normal hearing, normal speech, PERRL Coordination/Gait: normal finger to nose, normal gait Motor/Sensory: no motor deficit, no sensory deficit, no pronator drift Skin: normal color, warm/dry Stroke NIH Stroke Scale Assessment Select: Initial Level of Consciousness: 0=Alert (0), Level of Consciousness- Questions: 0=Answers both month/age (0), LOC Commands: 0=Performs both tasks (0), Gaze: Normal (0), Visual Estrada: 0=No visual loss (0), Facial Movement (Facial Paresis): 0=Normal symmetrical mnt (0), Motor Function-Arms Right: 0=No drift (0), Motor Function-Arms Left: 0=No drift (0), Motor Function-Legs Right: 0=No drift (0), Motor Function-Legs Left: 0=No drift (0), Limb Ataxia: 0=Absent (0), Sensory: 0=Normal:no loss (0), Best Language: 0=No aphasia (0), Dysarthria: 0=Normal (0), Extinction & Inattention: 0=No abnormality (0), Total: 0 Stroke Thrombolytic Exclusion Age 18 or Over: Yes Acute intenal hemorrhage: No History of CVA: Yes Uncontrolled Coagulation Defec: No Intracranial Hemorrhage: No Severe Hypertension: No GI or Bleed: No Subarachnoid Hemorrhage: No Intracranial Neoplasm/Aneurysm: No Oral Anticoagulants: No Surgery or Trauma: No Puncture of Non-Compressible V: No Recent CPR: No Diabetic Hemorrhagic Retinopat: No Organ Biopsy: No Recent Obstetric Delivery: No Glucose: No Significant Hepatic Dysfunctio: No NIH Stoke Scale >22: No Bacterial Endocarditis: No Pericarditis: No Improving Symptoms: Yes Platelets: No Progress/Results/Core Measures Results/Orders Lab Results Laboratory Tests Test 03/27/21 17:45 03/27/21 17:46 Range/Units White Blood Count 9.6 4.3-11.0 10^3/uL Red Blood Count 4.53 4.30-5.52 10^6/uL Hemoglobin 14.2 13.3-17.7 g/dL Hematocrit 43 40-54 % Mean Corpuscular Volume 95 80-99 fL Mean Corpuscular Hemoglobin 31 25-34 pg Mean Corpuscular Hemoglobin Concent 33 32-36 g/dL Red Cell Distribution Width 13.3 10.0-14.5 % Platelet Count 226 130-400 10^3/uL Mean Platelet Volume 10.2 9.0-12.2 fL Immature Granulocyte % (Auto) 0 % Neutrophils (%) (Auto) 60 42-75 % Lymphocytes (%) (Auto) 27 12-44 % Monocytes (%) (Auto) 10 0-12 % Eosinophils (%) (Auto) 2 0-10 % Basophils (%) (Auto) 1 0-10 % Neutrophils # (Auto) 5.8 1.8-7.8 10^3/uL Lymphocytes # (Auto) 2.6 1.0-4.0 10^3/uL Monocytes # (Auto) 0.9 0.0-1.0 10^3/uL Eosinophils # (Auto) 0.2 0.0-0.3 10^3/uL Basophils # (Auto) 0.1 0.0-0.1 10^3/uL Immature Granulocyte # (Auto) 0.0 0.0-0.1 10^3/uL Prothrombin Time 13.6 12.2-14.7 SEC INR Comment 1.0 0.8-1.4 Activated Partial Thromboplast Time 26 24-35 SEC D-Dimer 0.65 H 0.00-0.49 UG/ML Urine Color YELLOW Urine Clarity CLEAR Urine pH 8.0 5-9 Urine Specific [place] 1.015 L 1.016-1.022 Urine Protein NEGATIVE NEGATIVE Urine Glucose (UA) NEGATIVE NEGATIVE Urine Ketones NEGATIVE NEGATIVE Urine Nitrite NEGATIVE NEGATIVE Urine Bilirubin NEGATIVE NEGATIVE Urine Urobilinogen 0.2 < = 1.0 MG/DL Urine Leukocyte Esterase NEGATIVE NEGATIVE Urine RBC (Auto) NEGATIVE NEGATIVE Urine RBC NONE /HPF Urine WBC RARE /HPF Urine Squamous Epithelial Cells NONE /HPF Urine Renal Epithelial Cells NONE /HPF Urine Crystals NONE /LPF Urine Bacteria NEGATIVE /HPF Urine Casts NONE /LPF Urine Mucus NEGATIVE /LPF Urine Culture Indicated NO Sodium Level 134 L 135-145 MMOL/L Potassium Level 4.1 3.6-5.0 MMOL/L Chloride Level 99 98-107 MMOL/L Carbon Dioxide Level 21 21-32 MMOL/L Anion Gap 14 5-14 MMOL/L Blood Urea Nitrogen 9 7-18 MG/DL Creatinine 0.82 0.60-1.30 MG/DL Estimat Glomerular Filtration Rate 84 BUN/Creatinine Ratio 11 Glucose Level 106 H 70-105 MG/DL Calcium Level 9.5 8.5-10.1 MG/DL Corrected Calcium 9.6 8.5-10.1 MG/DL Total Bilirubin 0.6 0.1-1.0 MG/DL Aspartate Amino Transf (AST/SGOT) 19 5-34 U/L Alanine Aminotransferase (ALT/SGPT) 14 0-55 U/L Alkaline Phosphatase 47 40-136 U/L Troponin I < 0.028 <0.028 NG/ML Total Protein 7.3 6.4-8.2 GM/DL Albumin 3.9 3.2-4.5 GM/DL Glucometer 103 70-110 MG/DL My Orders Orders - YVETTE TRINIDAD Cbc With Automated Diff (03/27/21 18:24) Protime With Inr (03/27/21 18:24) Partial Thromboplastin Time (03/27/21 18:24) Comprehensive Metabolic Panel (03/27/21 18:24) Fibrin Degradation Products (03/27/21 18:24) Troponin I Jose (03/27/21 18:24) Ua Culture If Indicated (03/27/21 18:24) Ekg Tracing (03/27/21 18:24) Accucheck Stat ONCE (03/27/21 18:24) Ed Iv/Invasive Line Start (03/27/21 18:24) Vital Signs Stroke Patient Q15M (03/27/21 18:24) O2 (03/27/21 18:24) Monitor-Rhythm Ecg Trace Only (03/27/21 18:24) Dysphagia Screening Tool (03/27/21 18:24) Hydralazine Injection (Apresoline Inject (03/27/21 19:00) Ceftriaxone 1 Gm Pre-Mix (Rocephin 1 Gm (03/27/21 19:15) Medications Given in ED Current Medications Medications Dose Ordered Sig/Les Route Start Time Stop Time Status Last Admin Dose Admin Ceftriaxone Sodium/Dextrose 50 ml @ 100 mls/hr ONCE ONCE IV 03/27/21 19:15 03/27/21 19:44 DC 03/27/21 19:25 100 MLS/HR Hydralazine HCl 10 mg ONCE ONCE IV 03/27/21 19:00 03/27/21 19:01 DC 03/27/21 18:58 10 MG Vital Signs/I&O 03/27/21 17:38 Pulse 61 Resp 9 B/P (MAP) 233/141 (171) Pulse Ox 97 O2 Delivery Room Air Blood Pressure Mean: 171 Progress Progress Note : Time: 18:30 Progress Note Discussed the case with Dr. Frank, stroke neurologist on-call at [facility]. She agrees with not doing TPA if there are no focal weaknesses. She thinks we should do a thorough examination for reasons for his delirium and certainly his hypertension could be the chief cause. She would recommend however do a CT angiogram if his kidneys will tolerate it to rule out severe carotid disease. She does not indicate severe carotid disease needs dealt with immediately. I reviewed his records indicates that he had a CT angiogram in February 16, about a month ago which did not reveal any vertebral or carotid stenosis. At this martha e we could dispense with doing a CT angiogram. As his blood pressure has not come down in the first hour of his ER visit we'll go ahead and address his blood pressure with some antihypertensives. Initial ECG Impression Date: Mar 27, 2021 Initial ECG Impression Time: 17:47 Initial ECG Rate: 63 Initial ECG Rhythm: Normal Sinus Initial ECG Intervals: Normal Initial ECG Impression: Normal Initial ECG Comparisson: No Previous ECG Available Comment Normal sinus rhythm without clinically relevant ST elevation or depression Departure Communication (Admissions) Time/Spoke to Admitting Phy: 21:00 Discussed the case with Dr. Melendez who is aware of the patient and willing to i ncrease the losartan to 100 mg daily and hydralazine as needed Impression Primary Impression: Hypertensive encephalopathy Disposition: ADMITTED INPATIENT Condition: Stable Admissions Decision to Admit Reason: Admit from ER (General) Decision to Admit/Date: Mar 27, 2021 Time/Decision to Admit Time: 18:49 Departure-Patient Inst. Referrals: JOSH ROBERSON MD (PCP/Family) Primary Care Physician YVETTE TRINIDAD Mar 27, 2021 18:38
[2021-03-27 18:40] LABS: FIBRIN DEGRADATION PRODUCTS 0.65 UG/ML (0.00-0.49); PROTHROMBIN TIME PATIENT 13.6 SEC (12.2-14.7)
[2021-03-27 18:47] LABS: ALANINE AMINOTRANSFERASE 14 U/L (0-55); ALBUMIN 3.9 GM/DL (3.2-4.5); ALKALINE PHOSPHATASE 47 U/L (40-136); BILIRUBIN,TOTAL 0.6 MG/DL (0.1-1.0); BUN/CREATININE RATIO 11; CALCIUM 9.5 MG/DL (8.5-10.1); CARBON DIOXIDE 21 MMOL/L (21-32); CHLORIDE 99 MMOL/L (98-107); CREATININE SERUM 0.82 MG/DL (0.60-1.30); GFR ESTIMATED 84; GLUCOSE 106 MG/DL (70-105); POTASSIUM 4.1 MMOL/L (3.6-5.0); SODIUM 134 MMOL/L (135-145); TOTAL PROTEIN 7.3 GM/DL (6.4-8.2)
[2021-03-27 19:00] LABS: BILIRUBIN,URINE NEGATIVE (NEGATIVE); CLARITY,URINE CLEAR; COLOR,URINE YELLOW; GLUCOSE, URINE (UA) NEGATIVE (NEGATIVE); KETONES,URINE NEGATIVE (NEGATIVE); LEUKOCYTE ESTERASE ,URINE NEGATIVE (NEGATIVE); NITRITE,URINE NEGATIVE (NEGATIVE); PROTEIN,URINE NEGATIVE (NEGATIVE)
[2021-03-27] MEDS ORDERED: hydrALAZINE (APESOLINE) 20 MG/ML VIAL IV ONE (19:00)
[2021-03-27 19:08] LABS: BACTERIA,URINE NEGATIVE /HPF; WBC,URINE RARE /HPF
[2021-03-27] MEDS ORDERED: cefTRIAXone 1 GM PRE-MIX 50 ML IV ONE (19:15)
[2021-03-27 22:00] VITALS: BP 195/126
[2021-03-27 22:15] VITALS: BP 188/121
[2021-03-27 22:30] VITALS: BP 192/104
[2021-03-27 22:45] VITALS: BP 158/93
[2021-03-27 23:00] VITALS: BP 163/87
[2021-03-27] MEDS ORDERED: hydrALAZINE (APESOLINE) 20 MG/ML VIAL IV PRN (23:00)
[2021-03-27] MEDS ORDERED: SULF1TAB38 PO (23:00)
[2021-03-27] MEDS ORDERED: ALPR0.25 PO (23:00)
[2021-03-27] MEDS ORDERED: ACETAMINOPHEN 325 MG TABLET PO PRN (23:15)
[2021-03-27] MEDS: hydrALAZINE (APRESOLINE) 25 MG TAB PO SCH (23:17)
[2021-03-27] MEDS: CATHETER FLUSH 10 ML SYR IV SCH (23:30)
[2021-03-27] MEDS: traZODone 50 MG (DESYREL) TAB PO PRN (23:43)
[2021-03-28] VITALS (22 sets, daily range): BP systolic 80–229; BP diastolic 57–118
[2021-03-28 02:52] LABS: ABG BASE EXCESS 0.2 MMOL/L (-2.5-2.5); ABG OXYGEN SATURATION 95 % (94-100); ABG PCO2 37 MMHG (35-45); ABG PH 7.43 (7.37-7.43); ABG PO2 80 MMHG (79-93); ABG TCO2 25.1 MMOL/L (21.0-31.0)
[2021-03-28 02:54] LABS: ALLENS TEST YES-POS; INSPIRED O2 ROOM AIR; PATIENT TEMP 37.2; VENTILATOR NO
[2021-03-28 05:08] LABS: BASOPHILS # (AUTO) 0.1 10^3/uL (0.0-0.1); BASOPHILS % (AUTO) 0 % (0-10); EOSINOPHILS % (AUTO) 0 % (0-10); HEMATOCRIT 43 % (40-54); LYMPHOCYTES # (AUTO) 1.5 10^3/uL (1.0-4.0); LYMPHOCYTES % (AUTO) 11 % (12-44); MEAN CORPUSCULAR HEMOGLOBIN 32 pg (25-34); MEAN CORPUSCULAR HGB CONC 35 g/dL (32-36); MEAN CORPUSCULAR VOLUME 91 fL (80-99); MEAN PLATELET VOLUME 10.1 fL (9.0-12.2); MONOCYTES # (AUTO) 0.9 10^3/uL (0.0-1.0); MONOCYTES % (AUTO) 7 % (0-12); NEUTROPHILS # (AUTO) 11.3 10^3/uL (1.8-7.8); NEUTROPHILS % (AUTO) 82 % (42-75); PLATELET COUNT 239 10^3/uL (130-400); WHITE BLOOD COUNT 13.9 10^3/uL (4.3-11.0)
[2021-03-28 05:24] LABS: CALCIUM 9.2 MG/DL (8.5-10.1); CREATININE SERUM 0.77 MG/DL (0.60-1.30); POTASSIUM 3.9 MMOL/L (3.6-5.0)
[2021-03-28] MEDS: CATHETER FLUSH 10 ML SYR IV SCH ×3 (06:52→20:55)
--- NOTE | 2021-03-28 07:20 | Diagnostic Imaging Report ---
Indication: Altered mental status, encephalopathy. Comparison: 01/30/2021. Discussion: Single portable upright view of the chest was obtained. Normal heart size. Median sternotomy is stable. No failure. No consolidation, pleural fluid, or pneumothorax. No osseous abnormality. Impression: 1. No acute cardiopulmonary process. Dictated by: Dictated on workstation # [id number]
[2021-03-28] MEDS ORDERED: PATIENT MAY USE OWN MEDS, ALL MC SCH (08:45)
[2021-03-28] MEDS ORDERED: ASPIRIN E.C. 81 MG (ECOTRIN) TAB PO SCH (09:00)
[2021-03-28] MEDS ORDERED: cloNIDine 0.1 MG PATCH (CATAPRES TTS) TDSY TOP SCH (09:00)
[2021-03-28] MEDS ORDERED: PROPRANOLOL ER 60 MG CAP (INDERAL LA) PO SCH (09:00)
[2021-03-28] MEDS ORDERED: LOSARTAN 100 MG (COZAAR) TABLET PO SCH (09:00)
[2021-03-28] MEDS: hydrALAZINE (APRESOLINE) 25 MG TAB PO SCH ×3 (09:16→20:55)
[2021-03-28] MEDS: PROPRANOLOL ER 60 MG CAP (INDERAL LA) PO SCH (09:17)
[2021-03-28] MEDS: ASPIRIN E.C. 81 MG (ECOTRIN) TAB PO SCH (09:17)
[2021-03-28] MEDS ORDERED: SINEMET 25/100 (CARBIDOPA/LEVODOPA) TAB PO NR (09:45)
--- NOTE | 2021-03-28 09:47 | History & Physical ---
History of Present Illness History of Present Illness Reason for visit/HPI This is a 86 year old male of Dr. Roberson's who was brought to the emergency room with concerns of stroke-like symptoms. Apparently he was weak with confusion and slurred speech. The initial examination by nursing was a NIH score of 2 but the ER doctor saw him shortly after and stated his NIH score was 0. He was severely hypertensive with a blood pressure of 233/141. It was felt that he was having another episode of hypertensive encephalopathy. He was given IV hydralazine and admitted to the cardiac stepdown unit. The patient and also complain of worsening tremor. Apparently he stopped sinemet about 1 month ago due to weakness in his legs. The weakness has not improved but his tremor has worsened to the point of not being able to feed himself. He also complain of dry mouth which he feels is due to the clonidine patch. Date of Admission Mar 27, 2021 at 21:15 Date Seen by a Provider: Mar 28, 2021 Time Seen by a Provider: 09:46 I consulted on this patient on 03/28/21 09:42 Attending Physician Lucille Melendez DO Admitting Physician Josh Roberson MD Consult Allergies and Home Medications Allergies Coded Allergies: hydrocodone (Unverified Allergy, Mild, 03/22/07) amlodipine (Unverified Allergy, Unknown, 10/25/13) benazepril (Unverified Allergy, Unknown, 10/25/13) codeine (Verified Allergy, Unknown, 09/02/05) telmisartan (Unverified Allergy, Unknown, 10/25/13) Patient Home Medication List Home Medication List Reviewed: Yes Alprazolam (Xanax) 0.25 Mg Tablet, 0.25 MG PO Q6H PRN for ANXIETY, (Reported) Entered as Reported by: VISH GREENE on 03/27/21 2300 Last Action: New Order Aspirin (Aspirin EC) 81 Mg Tablet.dr, 81 MG PO HS, (Reported) Entered as Reported by: FRANSISCA CAMEJO on 01/05/21 1131 Last Action: Last Taken Edited Clonidine (Clonidine TTS 1 Patch) 1 Each Patch.tdwk, 0.1 MG TD Q7D@09 Prescribed by: JOSH ROBERSON on 02/03/21 1253 Last Action: Last Taken Edited Hydralazine HCl (Hydralazine HCl) 25 Mg Tablet, 37.5 MG PO Q8HR Prescribed by: JOSH ROBERSON on 02/03/21 125 Last Action: Last Taken Edited Losartan Potassium (Losartan Potassium) 50 Mg Tablet, 50 MG PO DAILY Prescribed by: JOSH ROBERSON on 02/03/21 1253 Last Action: Last Taken Edited Metformin HCl (Metformin HCl ER) 500 Mg Tab.er.24h, 500 MG PO BIDAC, (Reported) Entered as Reported by: FRANSISCA CAMEJO on 01/05/21 113 Last Action: Last Taken Edited Pantoprazole Sodium (Pantoprazole Sodium) 40 Mg Tablet.dr, 40 MG PO BID Prescribed by: JOSH ROBERSON on 02/03/21 1254 Last Action: Last Taken Edited Propranolol HCl (Propranolol HCl ER) 60 Mg Cap.sa.24h, 60 MG PO DAILY, (Reported) Entered as Reported by: FRANSISCA CAMEJO on 02/01/21 105 Last Action: Last Taken Edited Sennosides/Docusate Sodium (Stool Softener-Laxative Tablet) 1 Each Tablet, 1 EA PO BID Prescribed by: JOSH ROBERSON on 02/03/21 125 Sulfamethoxazole/Trimethoprim (Bactrim Ds Tablet) 1 Each Tablet, 1 EACH PO BID, (Reported) Entered as Reported by: VISH GREENE on 03/27/21 2300 Last Action: New Order Ubidecarenone (Co Q-10) 100 Mg Capsule, 100 MG PO DAILY, (Reported) Entered as Reported by: FRANSISCA CAMEJO on 01/05/211130 Last Action: Last Taken Edited Discontinued Medications Atorvastatin Calcium (Atorvastatin Calcium) 10 Mg Tablet, 10 MG PO HS, (Reported) Discontinued Reason: No Longer Taking Entered as Reported by: FRANSISCA CMAEJO on 01/05/211130 Last Action: Discontinued Past Umxvwws-Bpbzyt-Yugpyo Hx Patient Social History Marrital Status: Employed/Student: retired Tobacco Use?: No Tobacco type used: Cigars, Cigarettes Smoking Status: Former Smoker Smokeless Tobacco Frequency: Never a User Use of E-Cig and/or Vaping dev: No Use of E-Cig and/or Vaping Ozzie: Never a User Substance use?: No Alcohol Use?: No Pt feels they are or have been: No Immunizations Up To Date Date of Influenza Vaccine: Nov 27, 2020 First/Initial COVID19 Vaccinat: FEB 2020 Second COVID19 Vaccination Jose: APRIL 2020 Tetanus Booster (TDap): More Than 5 Years Date of Pneumonia Vaccine: July 02, 2009 Current Status Advance Directives: No Communicates: Verbally Primary Language: Wallisian Preferred Spoken Language: Wallisian Sensory deficits: Vision impairment, Hearing impairment Implanted or Applied Medical D: None Past Medical History Surgeries: Cardiac, CABG Coronary Artery Disease, Peripheral Vascular Sexually Transmitted Disease: No Hearing Impairment: Hard of Hearing, Hearing Aide Right Blood Disorders: No Family Medical History Heart Disease, Hypertension Review of Systems Constitutional: weakness EENTM: No see HPI, No no symptoms reported, No ear discharge, No hearing loss, No ear pain, No blurred vision, No double vision, No eye pain, No tearing, No vision loss, No dental problems, No hoarseness, No mouth pain, No mouth swelling, No epistaxis, No nose congestion, No nose pain, No throat pain, No throat swelling, No other Respiratory: short of breath (thinks this is from losartan) Cardiovascular: No no symptoms reported, No see HPI, No chest pain, No edema, No Hx of Intervention, No palpitations, No syncope, No vascular heart diseas, No other Gastrointestinal: No RUQ, No LUQ, No RLQ, No LLQ, No no symptoms reported, No see HPI, No abdominal pain, No constipation, No diarrhea, No dysphagia, No hematemesis, No heartburn, No jaundice, No loss of appetite, No melena, No nausea, No vomiting, No other Genitourinary: No no symptoms reported, No see HPI, No decreased output, No discharge, No dysuria, No frequency, No hematuria, No hesitancy, No incontinence, No nocturia, No pain, No other Musculoskeletal: muscle weakness Skin: No no symptoms reported, No see HPI, No change in color, No change in hair/nails, No dryness, No hx of skin cancer, No lesions, No lumps, No pruritus, No rash, No other Psychiatric/Neurological: Tremors, Weakness Physical Exam Vital Signs Vital Signs - First Documented 03/27/21 03/27/21 17:38 22:00 Temp 37.0 Pulse 61 Resp 9 B/P (MAP) 233/141 (171) Pulse Ox 97 O2 Delivery Room Air Capillary Refill : Less Than 3 Seconds Height, Weight, BMI Height: 6'0.00" Weight: 230lbs. 0.0oz. 104.296782pq; 28.42 BMI Method: General Appearance: No Apparent Distress HEENT: Pharynx Normal Neck: Supple Respiratory: Lungs Clear Cardiovascular: Regular Rate, Rhythm, Systolic Murmur, Gallop/S4 Gastrointestinal: Normal Bowel Sounds, Non Tender, Soft Rectal: Deferred Back: No CVA Tenderness Extremity: Non Tender, No Calf Tenderness, No Pedal Edema Neurologic/Psychiatric: Alert, Oriented x3, Other (bilateral hand tremor--pill rolling) Skin: Warm/Dry Comments Laboratory Tests 03/27/21 17:45: White Blood Count 9.6, Red Blood Count 4.53, Hemoglobin 14.2, Hematocrit 43, Mean Corpuscular Volume 95, Mean Corpuscular Hemoglobin 31, Mean Corpuscular Hemoglobin Concent 33, Red Cell Distribution Width 13.3, Platelet Count 226, Mean Platelet Volume 10.2, Immature Granulocyte % (Auto) 0, Neutrophils (%) (Auto) 60, Lymphocytes (%) (Auto) 27, Monocytes (%) (Auto) 10, Eosinophils (%) (Auto) 2, Basophils (%) (Auto) 1, Neutrophils # (Auto) 5.8, Lymphocytes # (Auto) 2.6, Monocytes # (Auto) 0.9, Eosinophils # (Auto) 0.2, Basophils # (Auto) 0.1, Immature Granulocyte # (Auto) 0.0, Prothrombin Time 13.6, INR Comment 1.0, Activated Partial Thromboplast Time 26, D-Dimer 0.65H, Urine Color YELLOW, Urine Clarity CLEAR, Urine pH 8.0, Urine Specific [place] 1.015L, Urine Protein NEGATIVE, Urine Glucose (UA) NEGATIVE, Urine Ketones NEGATIVE, Urine Nitrite NEGATIVE, Urine Bilirubin NEGATIVE, Urine Urobilinogen 0.2, Urine Leukocyte Esterase NEGATIVE, Urine RBC (Auto) NEGATIVE, Urine RBC NONE, Urine WBC RARE, Urine Squamous Epithelial Cells NONE, Urine Renal Epithelial Cells NONE, Urine Crystals NONE, Urine Bacteria NEGATIVE, Urine Casts NONE, Urine Mucus NEGATIVE, Urine Culture Indicated NO, Sodium Level 134L, Potassium Level 4.1, Chloride Level 99, Carbon Dioxide Level 21, Anion Gap 14, Blood Urea Nitrogen 9, Creatinine 0.82, Estimat Glomerular Filtration Rate 84, BUN/Creatinine Ratio 11, Glucose Level 106H, Calcium Level 9.5, Corrected Calcium 9.6, Total Bilirubin 0.6, Aspartate Amino Transf (AST/SGOT) 19, Alanine Aminotransferase (ALT/SGPT) 14, Alkaline Phosphatase 47, Troponin I < 0.028, Total Protein 7.3, Albumin 3.9 03/27/21 17:46: Glucometer 103 03/28/21 02:46: Blood Gas Puncture Site RIGHT RADIAL, Blood Gas Patient Temperature 37.2, Arterial Blood pH 7.43, Arterial Blood Partial Pressure CO2 37, Arterial Blood Partial Pressure O2 80, Arterial Blood HCO3 24, Arterial Blood Total CO2 25.1, Arterial Blood Oxygen Saturation 95, Arterial Blood Base Excess 0.2, Trell Test YES-POS, Blood Gas Ventilator Setting NO, Blood Gas Inspired Oxygen ROOM AIR 03/28/21 04:57: White Blood Count 13.9H, Red Blood Count 4.73, Hemoglobin 15.0, Hematocrit 43, Mean Corpuscular Volume 91, Mean Corpuscular Hemoglobin 32, Mean Corpuscular Hemoglobin Concent 35, Red Cell Distribution Width 13.2, Platelet Count 239, Mean Platelet Volume 10.1, Immature Granulocyte % (Auto) 0, Neutrophils (%) (Auto) 82H, Lymphocytes (%) (Auto) 11L, Monocytes (%) (Auto) 7, Eosinophils (%) (Auto) 0, Basophils (%) (Auto) 0, Neutrophils # (Auto) 11.3H, Lymphocytes # (Auto) 1.5, Monocytes # (Auto) 0.9, Eosinophils # (Auto) 0.0, Basophils # (Auto) 0.1, Immature Granulocyte # (Auto) 0.1, Sodium Level 131L, Potassium Level 3.9, Chloride Level 99, Carbon Dioxide Level 18L, Anion Gap 14, Blood Urea Nitrogen 8, Creatinine 0.77, Estimat Glomerular Filtration Rate 86, BUN/Creatinine Ratio 10, Glucose Level 134H, Calcium Level 9.2 Assessment/Plan Assessment and Plan 1. 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 Dry Mouth--will DC clonidine and increase hydralazine to 50mg po TID, states he can't deal with the dry mouth anymore--it is even keeping him from sleeping 3. Parkinson's Tremor--restart Sinemet as he cannot even feed himself since stopping this due to worsening tremors and I told him that Parkinson's can cause difficulty walking 4. DMII--start accuchecks with SSI 5. GERD--start pantoprazole Admission Diagnosis Admission Status: Inpatient Order (span 2 midnights) Reason for Inpatient Admission: Will need at least 48hrs to adjust meds LUCILLE MELENDEZ DO Mar 28, 2021 09:47
[2021-03-28] MEDS ORDERED: PANTOPRAZOLE 40 MG (PROTONIX) TAB PO NR ×2 (10:00→11:00)
[2021-03-28] MEDS: SINEMET 25/100 (CARBIDOPA/LEVODOPA) TAB PO SCH ×2 (14:59→18:25)
[2021-03-28 16:43] LABS: BASOPHILS # (AUTO) 0.1 10^3/uL (0.0-0.1); BASOPHILS % (AUTO) 0 % (0-10); EOSINOPHILS # (AUTO) 0.1 10^3/uL (0.0-0.3); EOSINOPHILS % (AUTO) 1 % (0-10); HEMATOCRIT 41 % (40-54); LYMPHOCYTES # (AUTO) 2.9 10^3/uL (1.0-4.0); LYMPHOCYTES % (AUTO) 22 % (12-44); MEAN CORPUSCULAR HEMOGLOBIN 32 pg (25-34); MEAN CORPUSCULAR HGB CONC 35 g/dL (32-36); MEAN CORPUSCULAR VOLUME 92 fL (80-99); MONOCYTES # (AUTO) 1.6 10^3/uL (0.0-1.0); MONOCYTES % (AUTO) 12 % (0-12); NEUTROPHILS # (AUTO) 8.4 10^3/uL (1.8-7.8); NEUTROPHILS % (AUTO) 65 % (42-75); PLATELET COUNT 243 10^3/uL (130-400)
[2021-03-28 17:01] LABS: ALANINE AMINOTRANSFERASE < 6 U/L (0-55); ALBUMIN 3.6 GM/DL (3.2-4.5); ALKALINE PHOSPHATASE 46 U/L (40-136); BILIRUBIN,TOTAL 1.1 MG/DL (0.1-1.0); BUN/CREATININE RATIO 11; CALCIUM 9.1 MG/DL (8.5-10.1); CARBON DIOXIDE 20 MMOL/L (21-32); CHLORIDE 98 MMOL/L (98-107); CREATINE KINASE 41 U/L (30-200); CREATININE SERUM 0.96 MG/DL (0.60-1.30); GFR ESTIMATED 76; GLUCOSE 146 MG/DL (70-105); POTASSIUM 3.9 MMOL/L (3.6-5.0); SODIUM 131 MMOL/L (135-145); TOTAL PROTEIN 6.3 GM/DL (6.4-8.2)
[2021-03-28] MEDS: ONDANSETRON 4 MG/2 ML (SDV) Z0FRAN IV PRN (17:03)
[2021-03-28 17:09] LABS: CREATINE KINASE MB 1.5 NG/ML (<6.6)
--- NOTE | 2021-03-28 17:16 | Diagnostic Imaging Report ---
PROCEDURE: CT head without contrast. TECHNIQUE: Multiple contiguous axial images were obtained through the brain without the use of intravenous contrast. Auto Exposure Controls were utilized during the CT exam to meet ALARA standards for radiation dose reduction. INDICATION: Recent aphasia, possible stroke with concern for acute ischemia. CORRELATION: 03/27/2021 FINDINGS: There are diffuse atrophic changes with prominence of the ventricles and sulci. There are scattered areas of decreased attenuation, nonspecific but likely changes of chronic small vessel ischemic disease. There is otherwise normal reis-white differentiation. No abnormal areas of attenuation to suggest edema from ischemia. There is no midline shift or mass effect. Intracranial vascular calcification without evidence for hyperdense intracranial vascular sign. No evidence for acute intracranial hemorrhage or abnormal extra-axial fluid collection. Bony calvarium is intact. Paranasal sinuses are clear. Mastoid air cells also appear clear. IMPRESSION: 1. No CT evidence for acute intracranial abnormality. 2. Age-related atrophic changes with changes of small vessel ischemic disease. Dictated by: Dictated on workstation # [id number]
[2021-03-28] MEDS ORDERED: LORazepam INJ 2 MG/ML (ATIVAN) VIAL ONE ×4 (17:23→18:39)
[2021-03-28] MEDS ORDERED: LORazepam INJ 2 MG/ML (ATIVAN) VIAL IVP ONE ×2 (17:30→18:00)
[2021-03-28] MEDS ORDERED: hydrALAZINE (APESOLINE) 20 MG/ML VIAL IV ONE ×2 (17:30→18:00)
[2021-03-28] MEDS ORDERED: LORazepam INJ 2 MG/ML (ATIVAN) VIAL IVP PRN (17:45)
[2021-03-28] MEDS ORDERED: NITROGLYCERIN 2% OINT 1 GM UNIT DOSE PACKET TOP ONE (17:45)
--- NOTE | 2021-03-28 17:52 | Progress Note ---
Subjective Date Seen by a Provider: Mar 28, 2021 Time Seen by a Provider: 17:45 Subjective/Events-last exam Fwup hypertensive encephalopathy, labile HTN, Parkinson's, DMII, Hx. of CAD. Patient became confused and agitated and BP 200s/100s. Currently awake and seems to understand questions but answers are incorrect. Moving all extremities--trying to get out of bed. Will not follow commands. CT of Head negative, labs same. Given IV hydralazine and ativan and will use nitropaste if BP remains elevated. Objective Exam Vital Signs Date Time Temp Pulse Resp B/P (MAP) Pulse Ox O2 Delivery O2 Flow Rate FiO2 03/28/21 17:16 90 18 212/107 (142) 95 Room Air 03/28/21 17:08 86 16 216/100 (138) 94 Room Air 03/28/21 17:07 88 18 229/117 (154) 96 Room Air 03/28/21 16:08 57 16 132/88 (103) 96 Room Air 03/28/21 16:05 49 16 80/57 (65) 95 Room Air 03/28/21 12:46 60 03/28/21 12:14 37.1 65 14 106/66 (79) 93 Room Air 03/28/21 08:00 94 Room Air 03/28/21 08:00 36.8 84 18 118/68 (85) 94 Room Air 03/28/21 07:00 86 03/28/21 04:00 96 25 131/76 (94) 92 Room Air 03/28/21 01:00 99 03/28/21 00:00 95 21 134/84 (101) 92 Room Air 03/27/21 23:00 92 18 163/87 (112) 95 Room Air 03/27/21 22:45 92 18 158/93 (114) 92 Room Air 03/27/21 22:30 98 20 192/104 (133) 94 Room Air 03/27/21 22:15 90 16 188/121 (143) 95 Room Air 03/27/21 22:12 88 03/27/21 22:00 37.0 89 16 195/126 (149) 95 Room Air 03/27/21 22:00 94 Room Air 03/27/21 21:45 87 18 167/95 95 Room Air I & O 03/28/21 07:00 Intake Total 500 ml Output Total 250 ml Balance 250 ml Capillary Refill : Less Than 3 Seconds General Appearance: Severe Distress (confused) Respiratory: Lungs Clear Cardiovascular: Regular Rate, Rhythm, Systolic Murmur Neurologic/Psychiatric: Alert, Disoriented Results Lab Laboratory Tests 03/27/21 17:46: Glucometer 103 03/28/21 02:46: Blood Gas Puncture Site RIGHT RADIAL, Blood Gas Patient Temperature 37.2, Arterial Blood pH 7.43, Arterial Blood Partial Pressure CO2 37, Arterial Blood Partial Pressure O2 80, Arterial Blood HCO3 24, Arterial Blood Total CO2 25.1, Arterial Blood Oxygen Saturation 95, Arterial Blood Base Excess 0.2, Trell Test YES-POS, Blood Gas Ventilator Setting NO, Blood Gas Inspired Oxygen ROOM AIR 03/28/21 04:57: White Blood Count 13.9H, Red Blood Count 4.73, Hemoglobin 15.0, Hematocrit 43, Mean Corpuscular Volume 91, Mean Corpuscular Hemoglobin 32, Mean Corpuscular Hemoglobin Concent 35, Red Cell Distribution Width 13.2, Platelet Count 239, Mean Platelet Volume 10.1, Immature Granulocyte % (Auto) 0, Neutrophils (%) (Auto) 82H, Lymphocytes (%) (Auto) 11L, Monocytes (%) (Auto) 7, Eosinophils (%) (Auto) 0, Basophils (%) (Auto) 0, Neutrophils # (Auto) 11.3H, Lymphocytes # (Auto) 1.5, Monocytes # (Auto) 0.9, Eosinophils # (Auto) 0.0, Basophils # (Auto) 0.1, Immature Granulocyte # (Auto) 0.1, Sodium Level 131L, Potassium Level 3.9, Chloride Level 99, Carbon Dioxide Level 18L, Anion Gap 14, Blood Urea Nitrogen 8, Creatinine 0.77, Estimat Glomerular Filtration Rate 86, BUN/Creatinine Ratio 10, Glucose Level 134H, Calcium Level 9.2 03/28/21 16:35: White Blood Count 13.0H, Red Blood Count 4.41, Hemoglobin 14.0, Hematocrit 41, Mean Corpuscular Volume 92, Mean Corpuscular Hemoglobin 32, Mean Corpuscular Hemoglobin Concent 35, Red Cell Distribution Width 13.4, Platelet Count 243, Mean Platelet Volume 10.0, Immature Granulocyte % (Auto) 0, Neutrophils (%) (Auto) 65, Lymphocytes (%) (Auto) 22, Monocytes (%) (Auto) 12, Eosinophils (%) (Auto) 1, Basophils (%) (Auto) 0, Neutrophils # (Auto) 8.4H, Lymphocytes # (Auto) 2.9, Monocytes # (Auto) 1.6H, Eosinophils # (Auto) 0.1, Basophils # (Auto) 0.1, Immature Granulocyte # (Auto) 0.0, Sodium Level 131L, Potassium Level 3.9, Chloride Level 98, Carbon Dioxide Level 20L, Anion Gap 13, Blood Urea Nitrogen 11, Creatinine 0.96, Estimat Glomerular Filtration Rate 76, BUN/Creatinine Ratio 11, Glucose Level 146H, Calcium Level 9.1, Corrected Calcium 9.4, Total Bilirubin 1.1H, Aspartate Amino Transf (AST/SGOT) 15, Alanine Aminotransferase (ALT/SGPT) < 6, Alkaline Phosphatase 46, Total Creatine Kinase 41, Creatine Kinase MB 1.5, Troponin I < 0.028, Total Protein 6.3L, Albumin 3.6 Assessment/Plan Assessment/Plan Assess & Plan/Chief Complaint 1. Hypertensive Encephalopathy with Hypertensive Crisis--given IV hydralazine and will start nitropaste if needed 2. Acute Confusion--will proceed with CT angiogram of head and neck 3. Dyspepsia/Vomiting--given [facility] Clinical Quality Measures Admission Status Admission Dx 1. Hypertensive Encephalopathy--BP much improved this morning and has not even had morning meds, patient has history of stopping or adjusting his meds due to "side effects", consult Dr. Dempsey who is his engineering technologist 2. Dry Mouth--will DC clonidine and increase hydralazine to 50mg po TID, states he can't deal with the dry mouth anymore--it is even keeping him from sleeping 3. Parkinson's Tremor--restart Sinemet as he cannot even feed himself since stopping this due to worsening tremors and I told him that Parkinson's can cause difficulty walking 4. DMII--start accuchecks with SSI 5. GERD--start pantoprazole LUCILLE REED DO Mar 28, 2021 17:52
[2021-03-28] MEDS ORDERED: HOLD METFORMIN - RECEIVED CONTRAST 20 ML VIAL IV SCH (18:00)
[2021-03-28] MEDS ORDERED: IOHEXOL 350 MG/ML 100 ML (OMNIPAQUE 350) VIAL IV ONE (18:00)
[2021-03-28] MEDS ORDERED: NS 100 ML (IVPB) BAG IV ONE (18:00)
[2021-03-28] MEDS ORDERED: NITROGLYCERIN 2% OINT 1 GM UNIT DOSE PACKET ONE (18:03)
[2021-03-28] MEDS ORDERED: NITROPRUSSIDE INJECTION 50 MG in D5W IV SOLUTION (EXCEL) 250 ML IV SCH (18:45)
[2021-03-28] MEDS ORDERED: cefTRIAXone 1 GM PRE-MIX 50 ML IV SCH (18:45)
[2021-03-28] MEDS ORDERED: cefTRIAXone 1 GM PRE-MIX 50 ML IV ONE (19:45)
--- NOTE | 2021-03-28 19:48 | Diagnostic Imaging Report ---
PROCEDURE: CT angiography of the head and CT angiography of the neck with and without contrast. TECHNIQUE: Contiguous noncontrast images were obtained from the skull base through the vertex. After intravenous contrast administration, helical CT angiography of the neck was performed. Source data was reformatted into 3D MIP projections. Delayed post contrast acquisition was also obtained. Auto Exposure Controls were utilized during the CT exam to meet ALARA standards for radiation dose reduction. INDICATION: 78-year-old male, stroke symptoms, increasing confusion. Recent aphasia. COMPARISON: 01/31/2021. FINDINGS: CTA NECK: Aorta: Prior sternotomy change. There is common origin of the brachiocephalic trunk and left common carotid artery, normal anatomic variation. Mild calcification of the origin of the left common carotid artery. Right Common/Internal/External Carotid Artery: Tortuous course of the left common carotid artery through retropharyngeal course. Mild atherosclerotic change with intimal thickening and calcification of distal common carotid artery into the carotid bifurcation. Internal carotid artery patent to the skull base. External carotid artery patent. Left Common/Internal/External Carotid Artery: Left common carotid artery is patent. There is calcification and mild intimal thickening of the distal common carotid artery carotid bifurcation. The internal carotid artery is patent to the skull base. External carotid artery patent. Vertebral arteries: Very slightly dominant left vertebral artery. There is tortuous course at the origin of bilateral vertebral arteries without significant stenosis. Both vertebral arteries at terminate into the basilar artery with the distal right vertebral artery becoming slightly hypoplastic. Non-vascular: No concerning cervical lymphadenopathy. The airway is patent. Lung apices clear. Mild to moderately advanced multilevel cervical spondylosis. CTA HEAD: Anterior Circulation: The intracranial internal carotid arteries are patent. Mild intracranial vascular calcification. The bilateral middle cerebral arteries are patent and without stenosis. The anterior cerebral arteries are patent and without stenosis. Posterior Circulation: The bilateral intracranial segments of the vertebral arteries are patent. The basilar artery is patent and without stenosis. The posterior cerebral arteries are patent. Post Contrast Head: No concerning enhancement on delayed post-contrast imaging. IMPRESSION: 1. Negative CTA of the head. 2. Negative CTA of the neck. 3. Mild diffuse atherosclerosis. Dictated by: Dictated on workstation # [id number]
[2021-03-28] MEDS ORDERED: 1/2 NS W/KCL 20 MEQ/L 1,000 ML IV ONE (19:50)
[2021-03-28] MEDS: 1/2 NS W/KCL 20 MEQ/L 1,000 ML IV SCH (19:58)
[2021-03-28] MEDS ORDERED: NITROPRUSSIDE 50 MG/2 ML (NIPRIDE) VIAL IV ONE (20:00)
[2021-03-28] MEDS ORDERED: D5W IV SOLUTION (EXCEL) 250 ML IV ONE (20:28)
[2021-03-28] MEDS ORDERED: NITRO DRIP 25000 MCG/D5W 250 ML IV ONE (20:51)
[2021-03-28] MEDS: NITRO DRIP 25000 MCG/D5W 250 ML IV SCH (20:54)
[2021-03-28] MEDS: inSUlin ASPART (NovoLOG) 1 UNIT/0.01 ML (CHARGE PER UNIT) SQ SCH (23:12)
[2021-03-29] VITALS (25 sets, daily range): BP systolic 99–187; BP diastolic 51–107
[2021-03-29] MEDS ORDERED: HALOPERIDOL 5 MG/ML (HALDOL) VIAL IV ONE
[2021-03-29] MEDS ORDERED: HALOPERIDOL 5 MG/ML (HALDOL) VIAL ONE (00:09)
[2021-03-29] MEDS: hydrALAZINE (APRESOLINE) 25 MG TAB PO SCH ×3 (04:37→20:39)
[2021-03-29] MEDS: CATHETER FLUSH 10 ML SYR IV SCH ×3 (04:37→20:40)
[2021-03-29] MEDS: 1/2 NS W/KCL 20 MEQ/L 1,000 ML IV SCH ×3 (04:47→23:24)
[2021-03-29 04:58] LABS: BASOPHILS # (AUTO) 0.1 10^3/uL (0.0-0.1); BASOPHILS % (AUTO) 0 % (0-10); EOSINOPHILS % (AUTO) 0 % (0-10); HEMATOCRIT 40 % (40-54); HEMOGLOBIN 13.7 g/dL (13.3-17.7); LYMPHOCYTES # (AUTO) 1.8 10^3/uL (1.0-4.0); LYMPHOCYTES % (AUTO) 11 % (12-44); MEAN CORPUSCULAR HEMOGLOBIN 31 pg (25-34); MEAN CORPUSCULAR HGB CONC 34 g/dL (32-36); MEAN CORPUSCULAR VOLUME 91 fL (80-99); MEAN PLATELET VOLUME 10.5 fL (9.0-12.2); MONOCYTES # (AUTO) 1.8 10^3/uL (0.0-1.0); MONOCYTES % (AUTO) 11 % (0-12); NEUTROPHILS # (AUTO) 12.8 10^3/uL (1.8-7.8); NEUTROPHILS % (AUTO) 78 % (42-75); PLATELET COUNT 224 10^3/uL (130-400); WHITE BLOOD COUNT 16.5 10^3/uL (4.3-11.0)
[2021-03-29 05:13] LABS: ALANINE AMINOTRANSFERASE < 6 U/L (0-55); ALBUMIN 3.6 GM/DL (3.2-4.5); ALKALINE PHOSPHATASE 47 U/L (40-136); BUN/CREATININE RATIO 13; CALCIUM 9.1 MG/DL (8.5-10.1); CARBON DIOXIDE 18 MMOL/L (21-32); CHLORIDE 98 MMOL/L (98-107); GFR ESTIMATED 85; GLUCOSE 146 MG/DL (70-105); MAGNESIUM 1.5 MG/DL (1.6-2.4); PHOSPHORUS 3.2 MG/DL (2.3-4.7); POTASSIUM 4.2 MMOL/L (3.6-5.0); SODIUM 131 MMOL/L (135-145); TOTAL PROTEIN 6.8 GM/DL (6.4-8.2)
[2021-03-29] MEDS: inSUlin ASPART (NovoLOG) 1 UNIT/0.01 ML (CHARGE PER UNIT) SQ SCH ×4 (05:14→23:23)
[2021-03-29] MEDS ORDERED: MAGNESIUM 1 GM/100 ML IVPB 200 ML IV ONE (05:17)
[2021-03-29] MEDS: MAGNESIUM 1 GM/100 ML IVPB 100 ML IV SCH ×2 (05:29→06:16)
[2021-03-29 05:56] LABS: LYMPHOCYTES % (MANUAL) 5 %; MONOCYTES % (MANUAL) 8 %; NEUTROPHILS % (MANUAL) 87 %; RBC MORPH NORMAL
--- NOTE | 2021-03-29 08:31 | Progress Note ---
Subjective Subjective Date Seen by Provider: Mar 29, 2021 Time Seen by Provider: 08:10 PT IS AN 86 Y/O MALE WHO HAS BEEN ADMITTED MULTIPLE TIMES OVER THE PAST FEW MONTHS FOR RECURRENT HYPERTENSIVE ENCEPHALOPATHY. HE REPORTS MULTIPLE SIDE EFFECTS FROM MEDICATIONS AND THE PATIENT'S DENIES SELF ADJUSTMENTS OF MED ICATION, HOWEVER HE HAS HISTORY OF SELF MEDICATION ADJUSTMENTS. THIS MORNING, ARIANNE IS UNABLE TO BE AROUSED TO CONVERSE WITH THIS LEATHER PATCHER, HE WAS MUMBLING BUT NOT CONVERSANT, DID NOT FOLLOW COMMANDS. PER STAFF HE HAS BEEN UP AND TALKING EARLIER AND THEN GOT "COMFORTABLE" AND FINALLY WENT TO SLEEP - HE WAS GIVEN HALDOL ABOUT 8 HOURS PRIOR FOR BEHAVIORS, RESTLESSNESS, PULLING AT LINES/CORDS, AND TRYING TO GET UP OUT OF BED. Review of Systems General: No Chills; Fatigue Pulmonary: No Dyspnea, No Cough Cardiovascular: No: Chest Pain Gastrointestinal: No: Nausea, Vomiting Genitourinary: Other (RENNER IN PLACE) Musculoskeletal: other (CHRONIC TREMOR AND WEAKNESS) Neurological: Weakness, Confusion All Other Systems Reviewed All Other Systems Reviewed: Yes Objective Exam Vital Signs Vital Signs Date Time Temp Pulse Resp B/P (MAP) Pulse Ox O2 Delivery O2 Flow Rate FiO2 03/29/21 08:00 73 10 141/66 (91) 95 Nasal Cannula 2.00 03/29/21 07:55 36.6 03/29/21 07:00 75 03/29/21 07:00 93 23 187/88 (121) 92 Nasal Cannula 2.00 03/29/21 06:15 99 29 159/75 (103) 94 Nasal Cannula 2.00 03/29/21 05:00 105 25 159/107 (124) 97 Nasal Cannula 2.00 03/29/21 04:30 100 25 142/87 (105) 95 Nasal Cannula 2.00 03/29/21 04:04 92 24 181/71 (107) 96 Nasal Cannula 2.00 03/29/21 04:00 37.5 Nasal Cannula 2.00 03/29/21 04:00 95 Nasal Cannula 2.00 03/29/21 03:00 88 157/64 (95) 92 Nasal Cannula 2.00 03/29/21 02:00 116 143/84 (103) 94 Nasal Cannula 2.00 03/29/21 01:00 90 20 146/67 (93) 89 Nasal Cannula 2.00 03/29/21 01:00 90 1/31/22 00:00 93 Nasal Cannula 2.00 03/29/21 00:00 89 24 160/73 (95) 91 Nasal Cannula 2.00 03/28/21 23:05 37.5 Nasal Cannula 2.00 03/28/21 23:00 103 204/85 (110) 90 Nasal Cannula 2.00 03/28/21 22:22 Nasal Cannula 2.00 03/28/21 22:00 94 21 126/84 (91) 88 Room Air 03/28/21 21:00 94 17 180/82 (112) 93 Room Air 03/28/21 20:54 103 185/86 03/28/21 20:15 98 24 195/83 (117) 93 Room Air 03/28/21 20:00 102 193/91 (128) 97 Room Air 03/28/21 20:00 94 Room Air 03/28/21 19:50 Room Air 03/28/21 19:48 105 168/96 (112) 96 Room Air 03/28/21 19:30 98 24 178/112 (123) 93 Room Air 03/28/21 19:15 98 17 160/90 (109) 91 Room Air 03/28/21 19:10 102 03/28/21 19:07 113 15 167/118 (134) 92 Room Air 03/28/21 19:00 36.8 Room Air 03/28/21 18:30 96 18 161/87 (111) 93 Room Air 03/28/21 18:02 96 19 163/79 (107) 92 Room Air 03/28/21 17:53 98 20 158/86 (110) 93 Room Air 03/28/21 17:44 101 17 137/88 (104) 93 Room Air 03/28/21 17:16 90 18 212/107 (142) 95 Room Air 03/28/21 17:08 86 16 216/100 (138) 94 Room Air 03/28/21 17:07 88 18 229/117 (154) 96 Room Air 03/28/21 16:08 57 16 132/88 (103) 96 Room Air 03/28/21 16:05 49 16 80/57 (65) 95 Room Air 03/28/21 12:46 60 03/28/21 12:14 37.1 65 14 106/66 (79) 93 Room Air I & O 03/29/21 07:00 Intake Total 1650 ml Output Total 675 ml Balance 975 ml General Appearance: Other (CONFUSED, IN NO DISTRESS) Eyes: Bilateral Eye PERRL HEENT: Pharynx Normal Neck: Supple Respiratory: Chest Non Tender, Lungs Clear, Other (POOR EFFORT - PT NOT FOLLOWING COMMANDS) Cardiovascular: Regular Rate, Rhythm, Systolic Murmur (II/) Gastrointestinal: Normal Bowel Sounds, Non Tender, Soft Rectal: Deferred Back: No CVA Tenderness Extremity: Non Tender, No Calf Tenderness, No Pedal Edema Neurologic/Psychiatric: Disoriented, Other (GROGGY, DOES NOT FOLLOW COMMANDS) Skin: Normal Color, Warm/Dry Results Lab Laboratory Tests 03/28/21 16:10: Glucometer 136H 03/28/21 16:35: White Blood Count 13.0H, Red Blood Count 4.41, Hemoglobin 14.0, Hematocrit 41, Mean Corpuscular Volume 92, Mean Corpuscular Hemoglobin 32, Mean Corpuscular Hemoglobin Concent 35, Red Cell Distribution Width 13.4, Platelet Count 243, Mean Platelet Volume 10.0, Immature Granulocyte % (Auto) 0, Neutrophils (%) (Auto) 65, Lymphocytes (%) (Auto) 22, Monocytes (%) (Auto) 12, Eosinophils (%) (Auto) 1, Basophils (%) (Auto) 0, Neutrophils # (Auto) 8.4H, Lymphocytes # (Auto) 2.9, Monocytes # (Auto) 1.6H, Eosinophils # (Auto) 0.1, Basophils # (Auto) 0.1, Immature Granulocyte # (Auto) 0.0, Sodium Level 131L, Potassium Level 3.9, Chloride Level 98, Carbon Dioxide Level 20L, Anion Gap 13, Blood Urea Nitrogen 11, Creatinine 0.96, Estimat Glomerular Filtration Rate 76, BUN/Creatinine Ratio 11, Glucose Level 146H, Calcium Level 9.1, Corrected Calcium 9.4, Total Bilirubin 1.1H, Aspartate Amino Transf (AST/SGOT) 15, Alanine Aminotransferase (ALT/SGPT) < 6, Alkaline Phosphatase 46, Total Creatine Kinase 41, Creatine Kinase MB 1.5, Troponin I < 0.028, Total Protein 6.3L, Albumin 3.6 03/28/21 19:00: Influenza Type A Antigen NEGATIVE, Influenza Type B Antigen NEGATIVE 03/28/21 19:40: SARS-CoV-2 RNA (RT-PCR) Not Detected 03/28/21 23:10: Glucometer 151H 03/29/21 04:19: White Blood Count 16.5H, Red Blood Count 4.38, Hemoglobin 13.7, Hematocrit 40, Mean Corpuscular Volume 91, Mean Corpuscular Hemoglobin 31, Mean Corpuscular Hemoglobin Concent 34, Red Cell Distribution Width 13.3, Platelet Count 224, Mean Platelet Volume 10.5, Immature Granulocyte % (Auto) 0, Neutrophils (%) (Auto) 78H, Lymphocytes (%) (Auto) 11L, Monocytes (%) (Auto) 11, Eosinophils (%) (Auto) 0, Basophils (%) (Auto) 0, Neutrophils # (Auto) 12.8H, Lymphocytes # (Auto) 1.8, Monocytes # (Auto) 1.8H, Eosinophils # (Auto) 0.0, Basophils # (Auto) 0.1, Immature Granulocyte # (Auto) 0.1, Neutrophils % (Manual) 87, Lymphocytes % (Manual) 5, Monocytes % (Manual) 8, Blood Morphology Comment NORMAL, Sodium Level 131L, Potassium Level 4.2, Chloride Level 98, Carbon Dioxide Level 18L, Anion Gap 15H, Blood Urea Nitrogen 10, Creatinine 0.80, Estimat Glomerular Filtration Rate 85, BUN/Creatinine Ratio 13, Glucose Level 146H, Calcium Level 9.1, Corrected Calcium 9.4, Phosphorus Level 3.2, Magnesium Level 1.5L, Total Bilirubin 1.0, Aspartate Amino Transf (AST/SGOT) 19, Alanine Aminotransferase (ALT/SGPT) < 6, Alkaline Phosphatase 47, Total Protein 6.8, Albumin 3.6 Assessment/Plan Assessment/Plan Assessment and Plan HYPERTENSIVE ENCEPHALOPATHY HYPERTENSIVE CRISIS DELIRIUM CHRONIC HYPERTENSION MEDICATION INTOLERANCE CORONARY ARTERY DISEASE DIABETES MELLITUS CHRONIC HYPERLIPIDEMIA PARKINSON'S 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 LEGER - PT REPORTS THAT HE CANNOT TAKE CLONIDINE DUE TO DRY MOUTH - HIS REPORTS THAT THE DRY MOUTH IS UNBEARABLE FOR ARIANNE...THIS MEDICATION HAS BEEN DISCONTINUED AND WE WILL CONTINUE WITH THE NIPRIDE DRIP FOR NOW AND WEAN DOWN ABLE, ORAL MEDICATIONS ARE GIVEN AND BLOOD PRESSURE RESPONDS TO THE MEDICATIONS. - WILL DEFER TO CARDIOLOGY FOR MEDICATION MANAGEMENT - SEE MED LIST FOR CURRENT REGIMEN - HYDRALAZINE, CARDURA, LOSARTAN, PROPRANOLOL, AND ADJUST MEDICATIONS ABLE. DELIRIUM - MULTIFACTORIAL - PT'S PARKINSON'S DISEASE MIXED WITH HIS HYPERTENSIVE ENCEPHALOPATHY CAUSING WORSENING MENTAL FUNCTION. - DISCUSSED WITH PT'S - THIS WILL LIKELY TAKE A WHILE TO CLEAR. CORONARY ARTERY DISEASE - SUPPORTIVE CARE DIABETES MELLITUS -HOLD HOME REGIMEN FOR NOW - HAD CONTRAST ON 03/29/2021 CHRONIC HYPERLIPIDEMIA - HOLD STATIN THERAPY - MAY BE AUGMENTING HIS WEAKNESS AND MAY NOT BENEFIT FROM CONTINUED USE OF STATIN THERAPY. PARKINSON'S - SINEMET RESTARTED. PROGRESSIVE WEAKNESS AND DECLINE AT HOME - ADVISED PT'S THAT HE REALLY NEEDS TO BE AT A LONG TERM FOR STRENGTHENING AND HOPEFULLY HE WILL BECOME STRONG ENOUGH TO RETURN HOME TO HER CARE. JOSH MORENO MD Mar 29, 2021 08:31
[2021-03-29] MEDS ORDERED: doxAzosin 4 MG (CARDURA) TAB PO NR (09:00)
[2021-03-29] MEDS: LOSARTAN 50 MG (COZAAR) TAB PO SCH (09:21)
[2021-03-29] MEDS: ASPIRIN E.C. 81 MG (ECOTRIN) TAB PO SCH (09:21)
[2021-03-29] MEDS: SINEMET 25/100 (CARBIDOPA/LEVODOPA) TAB PO SCH ×4 (09:22→18:10)
[2021-03-29] MEDS: PROPRANOLOL ER 60 MG CAP (INDERAL LA) PO SCH (09:22)
[2021-03-29] MEDS: PANTOPRAZOLE 40 MG (PROTONIX) TAB PO SCH (09:23)
--- NOTE | 2021-03-29 09:27 | Consultation-Cardiology ---
HPI-Cardiology Cardiology Consultation Date of Consultation 03/29/21 Date of Admission Time Seen by Provider: 08:10 Indication: Hypertensive emergency HPI 86-year-old gentleman well-known to my practice with history of labile hypertension, difficult to control and multiple episodes of hypertensive encephalopathy. Patient came in to the hospital for change in mental status and severe hypertension. He has been intolerant to multiple medication. On my evaluation he was sleeping. I visited in length with his and Dr. Roberson. Patient was sitting watching TV and suddenly became lethargic, not responsive. Blood pressure was elevated. Came into the emergency room, CT of the head was negative. Did not show any acute abnormality. Blood pressure continue to in crease, he was transferred to ICU and started on nitroglycerin drip. This morning he is sleeping, he was delirious earlier and received a single dose of Haldol last night. Home Medications & Allergies Allergies: Coded Allergies: hydrocodone (Unverified Allergy, Mild, 03/22/07) amlodipine (Unverified Allergy, Unknown, 10/25/13) benazepril (Unverified Allergy, Unknown, 10/25/13) codeine (Verified Allergy, Unknown, 09/02/05) telmisartan (Unverified Allergy, Unknown, 10/25/13) Home Medication List Reviewed: Yes [id number] Hx Patient Social History Marital Status: Employed/Student: retired Smoking Status: Former Smoker Type Used: Cigarettes 2nd Hand Smoke Exposure: No Recent Hopitalizations: Yes Have you traveled recently?: No Alcohol Use?: No Immunizations Up To Date Date of Pneumonia Vaccine: July 02, 2009 Date of Influenza Vaccine: Nov 27, 2020 Past Medical History Discussed below Family Medical History Significant Family History: Heart Disease, Hypertension Family Medical Hx Noncontributory Review of Systems-General Review of Systems Constitutional: weakness, other (Unable to provide review of system) EENTM: No see HPI, No no symptoms reported, No ear discharge, No hearing loss, No ear pain, No blurred vision, No double vision, No eye pain, No tearing, No vision loss, No dental problems, No hoarseness, No mouth pain, No mouth swelling, No epistaxis, No nose congestion, No nose pain, No throat pain, No throat swelling, No other Respiratory: short of breath (thinks this is from losartan) Cardiovascular: No no symptoms reported, No see HPI, No chest pain, No edema, No Hx of Intervention, No palpitations, No syncope, No vascular heart diseas, No other Gastrointestinal: No RUQ, No LUQ, No RLQ, No LLQ, No no symptoms reported, No see HPI, No abdominal pain, No constipation, No diarrhea, No dysphagia, No hematemesis, No heartburn, No jaundice, No loss of appetite, No melena, No nausea, No vomiting, No other Genitourinary: No no symptoms reported, No see HPI, No decreased output, No discharge, No dysuria, No frequency, No hematuria, No hesitancy, No incontinence, No nocturia, No pain, No other Musculoskeletal: muscle weakness Skin: No no symptoms reported, No see HPI, No change in color, No change in hair/nails, No dryness, No hx of skin cancer, No lesions, No lumps, No pruritus, No rash, No other Psychiatric/Neurological: Tremors, Weakness All Other Systems Reviewed Negative Unless Noted: Yes Reviewed Test Results Reviewed Test Results Lab Laboratory Tests Test 03/28/21 16:10 03/28/21 16:35 03/28/21 19:00 03/28/21 19:40 Range/Units Glucometer 136 H 70-110 MG/DL White Blood Count 13.0 H 4.3-11.0 10^3/uL Red Blood Count 4.41 4.30-5.52 10^6/uL Hemoglobin 14.0 13.3-17.7 g/dL Hematocrit 41 40-54 % Mean Corpuscular Volume 92 80-99 fL Mean Corpuscular Hemoglobin 32 25-34 pg Mean Corpuscular Hemoglobin Concent 35 32-36 g/dL Red Cell Distribution Width 13.4 10.0-14.5 % Platelet Count 243 130-400 10^3/uL Mean Platelet Volume 10.0 9.0-12.2 fL Immature Granulocyte % (Auto) 0 % Neutrophils (%) (Auto) 65 42-75 % Lymphocytes (%) (Auto) 22 12-44 % Monocytes (%) (Auto) 12 0-12 % Eosinophils (%) (Auto) 1 0-10 % Basophils (%) (Auto) 0 0-10 % Neutrophils # (Auto) 8.4 H 1.8-7.8 10^3/uL Lymphocytes # (Auto) 2.9 1.0-4.0 10^3/uL Monocytes # (Auto) 1.6 H 0.0-1.0 10^3/uL Eosinophils # (Auto) 0.1 0.0-0.3 10^3/uL Basophils # (Auto) 0.1 0.0-0.1 10^3/uL Immature Granulocyte # (Auto) 0.0 0.0-0.1 10^3/uL Sodium Level 131 L 135-145 MMOL/L Potassium Level 3.9 3.6-5.0 MMOL/L Chloride Level 98 98-107 MMOL/L Carbon Dioxide Level 20 L 21-32 MMOL/L Anion Gap 13 5-14 MMOL/L Blood Urea Nitrogen 11 7-18 MG/DL Creatinine 0.96 0.60-1.30 MG/DL Estimat Glomerular Filtration Rate 76 BUN/Creatinine Ratio 11 Glucose Level 146 H 70-105 MG/DL Calcium Level 9.1 8.5-10.1 MG/DL Corrected Calcium 9.4 8.5-10.1 MG/DL Total Bilirubin 1.1 H 0.1-1.0 MG/DL Aspartate Amino Transf (AST/SGOT) 15 5-34 U/L Alanine Aminotransferase (ALT/SGPT) < 6 0-55 U/L Alkaline Phosphatase 46 40-136 U/L Total Creatine Kinase 41 30-200 U/L Creatine Kinase MB 1.5 <6.6 NG/ML Troponin I < 0.028 <0.028 NG/ML Total Protein 6.3 L 6.4-8.2 GM/DL Albumin 3.6 3.2-4.5 GM/DL Influenza Type A Antigen NEGATIVE NEGATIVE Influenza Type B Antigen NEGATIVE NEGATIVE SARS-CoV-2 RNA (RT-PCR) Not Detected Negative Test 03/28/21 23:10 03/29/21 04:19 Range/Units Glucometer 151 H 70-110 MG/DL White Blood Count 16.5 H 4.3-11.0 10^3/uL Red Blood Count 4.38 4.30-5.52 10^6/uL Hemoglobin 13.7 13.3-17.7 g/dL Hematocrit 40 40-54 % Mean Corpuscular Volume 91 80-99 fL Mean Corpuscular Hemoglobin 31 25-34 pg Mean Corpuscular Hemoglobin Concent 34 32-36 g/dL Red Cell Distribution Width 13.3 10.0-14.5 % Platelet Count 224 130-400 10^3/uL Mean Platelet Volume 10.5 9.0-12.2 fL Immature Granulocyte % (Auto) 0 % Neutrophils (%) (Auto) 78 H 42-75 % Lymphocytes (%) (Auto) 11 L 12-44 % Monocytes (%) (Auto) 11 0-12 % Eosinophils (%) (Auto) 0 0-10 % Basophils (%) (Auto) 0 0-10 % Neutrophils # (Auto) 12.8 H 1.8-7.8 10^3/uL Lymphocytes # (Auto) 1.8 1.0-4.0 10^3/uL Monocytes # (Auto) 1.8 H 0.0-1.0 10^3/uL Eosinophils # (Auto) 0.0 0.0-0.3 10^3/uL Basophils # (Auto) 0.1 0.0-0.1 10^3/uL Immature Granulocyte # (Auto) 0.1 0.0-0.1 10^3/uL Neutrophils % (Manual) 87 % Lymphocytes % (Manual) 5 % Monocytes % (Manual) 8 % Blood Morphology Comment NORMAL Sodium Level 131 L 135-145 MMOL/L Potassium Level 4.2 3.6-5.0 MMOL/L Chloride Level 98 98-107 MMOL/L Carbon Dioxide Level 18 L 21-32 MMOL/L Anion Gap 15 H 5-14 MMOL/L Blood Urea Nitrogen 10 7-18 MG/DL Creatinine 0.80 0.60-1.30 MG/DL Estimat Glomerular Filtration Rate 85 BUN/Creatinine Ratio 13 Glucose Level 146 H 70-105 MG/DL Calcium Level 9.1 8.5-10.1 MG/DL Corrected Calcium 9.4 8.5-10.1 MG/DL Phosphorus Level 3.2 2.3-4.7 MG/DL Magnesium Level 1.5 L 1.6-2.4 MG/DL Total Bilirubin 1.0 0.1-1.0 MG/DL Aspartate Amino Transf (AST/SGOT) 19 5-34 U/L Alanine Aminotransferase (ALT/SGPT) < 6 0-55 U/L Alkaline Phosphatase 47 40-136 U/L Total Protein 6.8 6.4-8.2 GM/DL Albumin 3.6 3.2-4.5 GM/DL Physical Exam Physical Exam Vital Signs Vital Signs - First Documented 03/27/21 03/27/21 03/28/21 17:38 22:00 22:22 Temp 37.0 Pulse 61 Resp 9 B/P (MAP) 233/141 (171) Pulse Ox 97 O2 Delivery Room Air O2 Flow Rate 2.00 Capillary Refill : Less Than 3 Seconds Height, Weight, BMI Height: 6'0.00" Weight: 230lbs. 0.0oz. [id number]; 28.42 BMI Method: General Appearance: No Apparent Distress, Other (Sleeping, had episodes of delirium last night per) Eyes: Bilateral Eye Normal Inspection, Bilateral Eye PERRL, Bilateral Eye EOMI HEENT: Pharynx Normal Neck: Supple Respiratory: Lungs Clear Cardiovascular: Regular Rate, Rhythm, Systolic Murmur, Gallop/S3 Gastrointestinal: Normal Bowel Sounds, Non Tender, Soft Rectal: Deferred Back: No CVA Tenderness Extremity: Non Tender, No Calf Tenderness, No Pedal Edema Neurologic/Psychiatric: Alert, Disoriented Skin: Warm/Dry Lymphatic: No Adenopathy A/P-Cardiology Admission Diagnosis Hypertensive encephalopathy Malignant hypertension Parkinson Change in mental status Assessment/Plan Acute change in mental status, probably hypertensive encephalopathy, CT of the head did not show any acute abnormality, had an episode of delirium last night. Currently sleeping. Continue to monitor closely. Malignant hypertension, difficult to control. Patient has intolerance to multiple medication, Intolerant to amlodipine due to sinus bradycardia and multiple pauses with first-degree AV block and right bundle branch block. We tried propranolol back to 80 mg once a day due to the tremor. Patient was concerned about stopping the propranolol especially with his tremor. Patient continued to have bradycardia and we changed it back to 60 mg once a day. Intolerance to Cozaar with leg pain and cough. Intolerance to Micardis with leg and ankle swelling. Intolerance to Lotrel with swelling and cough. Intolerance to diltiazem. Intolerant to isosorbide with headache Intolerant to clonidine with dry mouth. Currently on hydralazine and losartan, concerned that losartan is giving him cough and weakness. I will add Cardura and evaluate tolerance and response Continue to monitor closely Sinus node dysfunction, sinus bradycardia with generalized fatigue and loss of energy. We discussed the possibility of pacemaker, the advantage of pacemaker is the ability of using high dose of beta-blockers and calcium channel blockers which could be helpful in his situation Coronary artery disease Coronary artery bypass surgery in August 2005 at [facility]. Cardiac catheterization was in March 2007. It showed severe left coronary artery disease. There was a patent graft to an obtuse marginal branch of the left circumflex artery and a patent graft to the distal left anterior descending artery. A saphenous vein graft to the mid left anterior descending artery was occluded. The right coronary artery was dominant and had mild to moderate disease. Left ventricular ejection fraction was 60% and there was minimal localized anterolateral hypokinesis. Left ventricular end-diastolic pressure was normal. Stress test July 2018 revealed no ischemia or infarct. Continue to monitor, no changes are recommended Echocardiogram was done on April 30, 2020 showing normal LV size, EF 55 to 65%, left atrium 5.6 cm, mild MR, PA pressure 35 mmHg. I will repeat 2D echo Holter monitor done in July 2020 showing sinus rhythm with episodes of bradycardia, sinus pauses with escape junctional bradycardia and first-degree AV block with right bundle branch block, occasional PVCs and PACs and short PAT. Sinus node dysfunction, persistent bradycardia and fatigue. Taking propranolol, was intolerant to amlodipine in the past. I am considering a pacemaker if needed and patient is requiring more aggressive treatment with beta-blockers and calcium channel blockers. Carotid artery stenosis, hx of L CEA in 2005, CTA of head and neck done Nov 2020 showing bilateral nonobstructive disease Maturity onset diabetes mellitus being managed by Dr. Roberson. Hyperlipidemia, maintained on Lipitor, patient was having weakness in his lower extremities, generalized weakness. Concerned about myopathy. I will stop atorvastatin at this point Chronic tremor, advanced Parkinson, worsening tremor, patient was started back on Sinemet Sleep apnea syndrome; patient does not wish to comply with therapy. Chronic left sided hearing loss Intolerance to LILIAN inhibitors and ARBs due to multiple symptoms, currently tolerating losartan. Bilateral Dupytren's contractures of hands S/p L carpal tunnel surgery by Dr Grider on Oct 30, 2013. Bilateral leg discomfort, but ABIs of 01/06/15 were normal Chronic mild intermittent dependent leg swelling, likely related to venous insuff LISANDRO LEGER MD Mar 29, 2021 09:27
--- NOTE | 2021-03-29 10:35 | Tele-ICU Progress Note ---
Subjective Date Seen by a Provider: Mar 29, 2021 Time Seen by a Provider: 10:35 Sepsis Event Evaluation Height, Weight, BMI Height: 6'0.00" Weight: 230lbs. 0.0oz. [id number]; 28.42 BMI Method: Exam Exam Patient acknowledged, consented, and participated in this virtual visit which was conducted using real time audio/video Vital Signs Date Time Temp Pulse Resp B/P (MAP) Pulse Ox O2 Delivery O2 Flow Rate FiO2 03/29/21 10:00 58 13 141/73 (95) 95 Nasal Cannula 2.00 03/29/21 09:00 64 170/69 (102) 93 Nasal Cannula 2.00 03/29/21 08:00 73 10 141/66 (91) 95 Nasal Cannula 2.00 03/29/21 07:55 36.6 03/29/21 07:00 75 03/29/21 07:00 93 23 187/88 (121) 92 Nasal Cannula 2.00 03/29/21 06:15 99 29 159/75 (103) 94 Nasal Cannula 2.00 03/29/21 05:00 105 25 159/107 (124) 97 Nasal Cannula 2.00 03/29/21 04:30 100 25 142/87 (105) 95 Nasal Cannula 2.00 03/29/21 04:04 92 24 181/71 (107) 96 Nasal Cannula 2.00 03/29/21 04:00 37.5 Nasal Cannula 2.00 03/29/21 04:00 95 Nasal Cannula 2.00 03/29/21 03:00 88 157/64 (95) 92 Nasal Cannula 2.00 03/29/21 02:00 116 143/84 (103) 94 Nasal Cannula 2.00 03/29/21 01:00 90 20 146/67 (93) 89 Nasal Cannula 2.00 03/29/21 01:00 90 03/29/21 00:00 93 Nasal Cannula 2.00 03/29/21 00:00 89 24 160/73 (95) 91 Nasal Cannula 2.00 03/28/21 23:05 37.5 Nasal Cannula 2.00 03/28/21 23:00 103 204/85 (110) 90 Nasal Cannula 2.00 03/28/21 22:22 Nasal Cannula 2.00 03/28/21 22:00 94 21 126/84 (91) 88 Room Air 03/28/21 21:00 94 17 180/82 (112) 93 Room Air 03/28/21 20:54 103 185/86 03/28/21 20:15 98 24 195/83 (117) 93 Room Air 03/28/21 20:00 102 193/91 (128) 97 Room Air 03/28/21 20:00 94 Room Air 03/28/21 19:50 Room Air 03/28/21 19:48 105 168/96 (112) 96 Room Air 03/28/21 19:30 98 24 178/112 (123) 93 Room Air 03/28/21 19:15 98 17 160/90 (109) 91 Room Air 03/28/21 19:10 102 03/28/21 19:07 113 15 167/118 (134) 92 Room Air 03/28/21 19:00 36.8 Room Air 03/28/21 18:30 96 18 161/87 (111) 93 Room Air 03/28/21 18:02 96 19 163/79 (107) 92 Room Air 03/28/21 17:53 98 20 158/86 (110) 93 Room Air 03/28/21 17:44 101 17 137/88 (104) 93 Room Air 03/28/21 17:16 90 18 212/107 (142) 95 Room Air 03/28/21 17:08 86 16 216/100 (138) 94 Room Air 03/28/21 17:07 88 18 229/117 (154) 96 Room Air 03/28/21 16:08 57 16 132/88 (103) 96 Room Air 03/28/21 16:05 49 16 80/57 (65) 95 Room Air 03/28/21 12:46 60 03/28/21 12:14 37.1 65 14 106/66 (79) 93 Room Air I & O 03/29/21 07:00 Intake Total 1650 ml Output Total 675 ml Balance 975 ml Height & Weight Height: 6'0.00" Weight: 230lbs. 0.0oz. 104.115778sw; 28.42 BMI Method: General Appearance: No Apparent Distress, Other (Sleeping, had episodes of delirium last night per) HEENT: Pharynx Normal Neck: Supple Respiratory: Lungs Clear Cardiovascular: Regular Rate, Rhythm, Systolic Murmur, Gallop/S3 Capillary Refill: Less Than 3 Seconds Peripheral Pulses: 2+ Radial Pulses (R), 2+ Radial Pulses (L) Gastrointestinal: normal bowel sounds, non tender, soft Extremity: Non Tender, No Calf Tenderness, No Pedal Edema Neurologic/Psychiatric: Alert, Disoriented Skin: Warm/Dry Lymphatic: No Adenopathy Results Lab Laboratory Tests 03/27/21 17:45 03/28/21 04:57 03/28/21 16:35 03/29/21 04:19 Assessment/Plan Assessment/Plan (Tele-ICU Physician , consultation) Available chart/ vitals / labs / Images reviewed H&P is from ER notes Patient's information available about PMH, Shx, Fhx allergy reviewed in EMR. ROS as per chart and RN report Now in ICU, hemodynamically stable Video assessment done using teleICU camera, rest of exam as per RN Discussed with RN. Consultants: [facility] Hospital course: A/P Encephalopathy-., presiumed Hypertensive - CTH and CTA neg 03/28 - very delirious at night as per RN - sleeping now HYpertension - as per cardiology - HTN gtt ( on 10 ) on PO meds Parkinson - as per PCP , on Sinemet DM II- -accuchecks with SSI Hyponatremia - mild , stable Leukocytosis - empiric abx as per PCP 03/29 Lines : (Central Line Necessity Reviewed) Justice: incont OG: Nutrition: Po Analgesia: Anxiety/ delirium VTE Prophylaxis: need to start lovenox if OK with PCP Stress Ulcer Prophylaxis: Glycemic Control: Plans in collaboration with bedside consultants and IM MDs. Discussed with RN to reach out if any questions or concerns A total of 33 minutes of critical care time was devoted to this patient today, required to treat and/or prevent further deterioration of critical care condition ( as above ) . ARIELLA ALBERT MD Mar 29, 2021 10:35
[2021-03-29] MEDS ORDERED: LOSA50TA63 PO (12:21)
[2021-03-29] MEDS ORDERED: CARB1TAB19 PO (12:21)
[2021-03-29] MEDS ORDERED: CLON1PAT33 TD (12:21)
[2021-03-29] MEDS ORDERED: PANT40TA52 PO (12:21)
[2021-03-29] MEDS ORDERED: HYDR-3923 PO (12:21)
[2021-03-29] MEDS: ENOXAPARIN 40 MG/0.4 ML (LOVENOX) SYR SC SCH (16:40)
[2021-03-29] MEDS: cefTRIAXone 1 GM PRE-MIX 50 ML IV SCH (18:14)
[2021-03-29] MEDS: NITRO DRIP 25000 MCG/D5W 250 ML IV SCH (19:23)
[2021-03-29] MEDS: doxAzosin 4 MG (CARDURA) TAB PO SCH (20:39)
[2021-03-30] VITALS (26 sets, daily range): BP systolic 113–181; BP diastolic 55–95
[2021-03-30 04:40] LABS: BASOPHILS % (AUTO) 0 % (0-10); EOSINOPHILS % (AUTO) 0 % (0-10); HEMATOCRIT 35 % (40-54); HEMOGLOBIN 11.9 g/dL (13.3-17.7); LYMPHOCYTES # (AUTO) 1.1 10^3/uL (1.0-4.0); LYMPHOCYTES % (AUTO) 11 % (12-44); MEAN CORPUSCULAR HEMOGLOBIN 32 pg (25-34); MEAN CORPUSCULAR HGB CONC 34 g/dL (32-36); MEAN CORPUSCULAR VOLUME 93 fL (80-99); MEAN PLATELET VOLUME 10.2 fL (9.0-12.2); MONOCYTES % (AUTO) 10 % (0-12); NEUTROPHILS # (AUTO) 8.1 10^3/uL (1.8-7.8); NEUTROPHILS % (AUTO) 78 % (42-75); PLATELET COUNT 171 10^3/uL (130-400); WHITE BLOOD COUNT 10.3 10^3/uL (4.3-11.0)
[2021-03-30 04:57] LABS: ALBUMIN 3.4 GM/DL (3.2-4.5); CHLORIDE 97 MMOL/L (98-107); POTASSIUM 4.5 MMOL/L (3.6-5.0); SODIUM 127 MMOL/L (135-145)
[2021-03-30 04:58] LABS: CALCIUM 8.5 MG/DL (8.5-10.1)
[2021-03-30 04:59] LABS: GLUCOSE 138 MG/DL (70-105)
[2021-03-30 05:01] LABS: BILIRUBIN,TOTAL 1.1 MG/DL (0.1-1.0); CARBON DIOXIDE 18 MMOL/L (21-32)
[2021-03-30 05:03] LABS: ALKALINE PHOSPHATASE 39 U/L (40-136); CREATININE SERUM 0.73 MG/DL (0.60-1.30); GFR ESTIMATED 88; PHOSPHORUS 2.8 MG/DL (2.3-4.7)
[2021-03-30 05:04] LABS: BUN/CREATININE RATIO 15
[2021-03-30 05:06] LABS: ALANINE AMINOTRANSFERASE < 6 U/L (0-55); MAGNESIUM 1.7 MG/DL (1.6-2.4)
[2021-03-30] MEDS ORDERED: MAGNESIUM 1 GM/100 ML IVPB 200 ML IV ONE (05:35)
[2021-03-30] MEDS: hydrALAZINE (APRESOLINE) 25 MG TAB PO SCH ×3 (05:42→22:48)
[2021-03-30] MEDS: inSUlin ASPART (NovoLOG) 1 UNIT/0.01 ML (CHARGE PER UNIT) SQ SCH ×3 (05:42→18:23)
[2021-03-30] MEDS: CATHETER FLUSH 10 ML SYR IV SCH ×3 (05:42→22:48)
[2021-03-30] MEDS: MAGNESIUM 1 GM/100 ML IVPB 100 ML IV SCH (05:46)
--- NOTE | 2021-03-30 08:14 | Cardiology Progress Note ---
Subjective Date Seen by Provider: Mar 30, 2021 Time Seen by Provider: 08:12 Subjective/Events-last exam Patient is awake, more responsive today, feeling better, still having significant tremor Review of Systems General: No Chills, No Night Sweats; Fatigue, Malaise; No Appetite, No Other HEENT: No Head Aches, No Visual Changes, No Eye Pain, No Ear Pain, No Dysphasia, No Sinus Congestion, No Post Nasal Drip, No Sore Throat, No Other Pulmonary: No Dyspnea, No Cough, No Pleuritic Chest Pain, No Other Cardiovascular: No: Chest Pain, Palpitations, Orthopnea, Paroxysmal Noc. Dyspnea, Edema, Lt Headedness, Other Objective-Cardiology Exam Last Set of Vital Signs Vital Signs 03/30/21 03/30/21 03/30/21 03/30/21 04:25 06:00 06:25 07:00 Temp 36.8 Pulse 73 Resp 12 B/P (MAP) 113/61 (78) Pulse Ox 93 O2 Delivery Room Air O2 Flow Rate 2.00 I&O Intake and Output 03/30/21 00:00 Intake Total 3300 ml Output Total 150 ml Balance 3150 ml Intake Oral 50 ml IV Total 3250 ml Output Urine Total 150 ml # Urine Diapers 8 General: Alert, Oriented X3, Cooperative HEENT: Atraumatic, PERRLA Neck: Supple, No JVD, No Thyromegaly Lungs: Clear to Auscultation, Normal Air Movement Heart: Regular Rate, Normal S1, Normal S2, Other (Systolic murmur at the left sternal border) Abdomen: Normal Bowel Sounds, Soft, No Tenderness, No Hepatosplenomegaly, No Masses Extremities: No Clubbing, No Cyanosis, No Edema, Normal Pulses, No Tenderness/Swelling Skin: No Rashes, No Breakdown, No Significant Lesion Neuro: Normal Speech, Normal Tone, Sensation Intact Psych/Mental Status: Mental Status NL, Mood NL Results Lab Laboratory Tests 03/30/21 04:30 A/P-Cardiology Admission Diagnosis Hypertensive encephalopathy Malignant hypertension Parkinson Change in mental status Assessment/Plan Acute change in mental status, probably hypertensive encephalopathy, CT of the head did not show any acute abnormality, had an episode of delirium, currently back to baseline. Feeling better and improving. Malignant hypertension, difficult to control. Patient has intolerance to multiple medication, Intolerant to amlodipine due to sinus bradycardia and multiple pauses with first-degree AV block and right bundle branch block. We tried propranolol back to 80 mg once a day due to the tremor. Patient was concerned about stopping the propranolol especially with his tremor. Patient continued to have bradycardia and we changed it back to 60 mg once a day. Intolerance to Cozaar with leg pain and cough. Intolerance to Micardis with leg and ankle swelling. Intolerance to Lotrel with swelling and cough. Intolerance to diltiazem. Intolerant to isosorbide with headache Intolerant to clonidine with dry mouth. Currently on hydralazine and losartan, concerned that losartan is giving him cough and weakness. Cardura was added on March 29, 2021 Blood pressure is better, currently off nitroglycerin drip. Sinus node dysfunction, sinus bradycardia with generalized fatigue and loss of energy. We discussed the possibility of pacemaker, the advantage of pacemaker is the ability of using high dose of beta-blockers and calcium channel blockers which could be helpful in his situation Coronary artery disease Coronary artery bypass surgery in August 2005 at [facility]. Cardiac catheterization was in March 2007. It showed severe left coronary artery disease. There was a patent graft to an obtuse marginal branch of the left circumflex artery and a patent graft to the distal left anterior descending artery. A saphenous vein graft to the mid left anterior descending artery was occluded. The right coronary artery was dominant and had mild to moderate disease. Left ventricular ejection fraction was 60% and there was minimal localized anterolateral hypokinesis. Left ventricular end-diastolic pressure was normal. Stress test July 2018 revealed no ischemia or infarct. Continue to monitor, no changes are recommended Echocardiogram was done on March 29, 2021 showing normal LV size with left ventricular hypertrophy, ejection fraction 55 to 60%, left atrial dilatation, mild mitral regurgitation, PA pressure 25 to 30 mmHg Holter monitor done in July 2020 showing sinus rhythm with episodes of bradycardia, sinus pauses with escape junctional bradycardia and first-degree AV block with right bundle branch block, occasional PVCs and PACs and short PAT. Sinus node dysfunction, persistent bradycardia and fatigue. Taking propranolol, was intolerant to amlodipine in the past. I am considering a pacemaker if needed and patient is requiring more aggressive treatment with beta-blockers and calcium channel blockers. Carotid artery stenosis, hx of L CEA in 2005, CTA of head and neck done Nov 2020 showing bilateral nonobstructive disease Maturity onset diabetes mellitus being managed by Dr. Roberson. Hyperlipidemia, maintained on Lipitor, patient was having weakness in his lower extremities, generalized weakness. Concerned about myopathy. I will stop atorvastatin at this point Chronic tremor, advanced Parkinson, worsening tremor, patient was started back on Sinemet Sleep apnea syndrome; patient does not wish to comply with therapy. Chronic left sided hearing loss Intolerance to LILIAN inhibitors and ARBs due to multiple symptoms, currently tolerating losartan. Bilateral Dupytren's contractures of hands S/p L carpal tunnel surgery by Dr Grider on Oct 30, 2013. Bilateral leg discomfort, but ABIs of 01/06/15 were normal Chronic mild intermittent dependent leg swelling, likely related to venous insuff LISANDRO LEGER MD Mar 30, 2021 08:14
[2021-03-30] MEDS ORDERED: CLONIDINE PATCH REMOVAL TP SCH (08:59)
[2021-03-30] MEDS ORDERED: cloNIDine 0.1 MG PATCH (CATAPRES TTS) TDSY TOP SCH (09:00)
[2021-03-30] MEDS ORDERED: ASPIRIN 81 MG CHEW (CHILDREN'S ASA) ONE (09:02)
[2021-03-30] MEDS: NS IV 1000 ML 1,000 ML IV SCH ×2 (09:26→18:31)
[2021-03-30] MEDS: SINEMET 25/100 (CARBIDOPA/LEVODOPA) TAB PO SCH ×3 (09:30→18:19)
[2021-03-30] MEDS: LOSARTAN 50 MG (COZAAR) TAB PO SCH (09:32)
[2021-03-30] MEDS: PROPRANOLOL ER 60 MG CAP (INDERAL LA) PO SCH (09:32)
[2021-03-30] MEDS: ASPIRIN E.C. 81 MG (ECOTRIN) TAB PO SCH (09:33)
[2021-03-30] MEDS: PANTOPRAZOLE 40 MG (PROTONIX) TAB PO SCH (09:34)
--- NOTE | 2021-03-30 12:53 | Progress Note ---
Subjective Subjective Date Seen by Provider: Mar 30, 2021 Time Seen by Provider: 08:20 PT IS AN 86 Y/O MALE WHO HAS BEEN ADMITTED MULTIPLE TIMES OVER THE PAST FEW MONTHS FOR RECURRENT HYPERTENSIVE ENCEPHALOPATHY. HE REPORTS MULTIPLE SIDE EFFECTS FROM MEDICATIONS AND THE PATIENT'S DENIES SELF ADJUSTMENTS OF MEDI CATION, HOWEVER HE HAS HISTORY OF SELF MEDICATION ADJUSTMENTS. THE PT IS ALERT, SHAVING FACE THIS MORNING. HE REPORTS THAT HE HAS BEEN RELYING ON HIS FOR ALL OF HIS CARE RECENTLY, SHE FEEDS HIM, DRESSES HIM ETC. Review of Systems General: No Chills, No Night Sweats; Fatigue, Malaise; No Appetite, No Other HEENT: No Head Aches, No Visual Changes, No Eye Pain, No Ear Pain, No Dysphasia, No Sinus Congestion, No Post Nasal Drip, No Sore Throat, No Other Pulmonary: No Dyspnea, No Cough, No Pleuritic Chest Pain, No Other Cardiovascular: No: Chest Pain, Palpitations, Orthopnea, Paroxysmal Noc. Dyspnea, Edema, Lt Headedness, Other Gastrointestinal: No: Nausea, Vomiting Genitourinary: Other (RENNER IN PLACE) Musculoskeletal: other (CHRONIC TREMOR AND WEAKNESS) Neurological: Weakness; No: Confusion All Other Systems Reviewed All Other Systems Reviewed: Yes Objective Exam Vital Signs Vital Signs Date Time Temp Pulse Resp B/P (MAP) Pulse Ox O2 Delivery O2 Flow Rate FiO2 03/30/21 11:00 89 19 156/77 (103) 95 Nasal Cannula 2.00 03/30/21 10:00 66 13 140/66 (90) 93 Nasal Cannula 2.00 03/30/21 09:00 68 16 146/79 (101) 93 Nasal Cannula 2.00 03/30/21 08:00 72 14 137/67 (90) 95 Nasal Cannula 2.00 03/30/21 07:00 73 03/30/21 07:00 61 12 128/55 (79) 93 Nasal Cannula 2.00 03/30/21 06:25 Room Air 03/30/21 06:00 78 12 113/61 (78) 93 Nasal Cannula 2.00 03/30/21 05:00 75 22 140/95 (110) 94 Nasal Cannula 2.00 03/30/21 04:30 148/78 (101) 03/30/21 04:25 36.8 Nasal Cannula 2.00 03/30/21 04:00 94 Nasal Cannula 2.00 03/30/21 04:00 82 12 181/75 (110) 94 Nasal Cannula 2.00 03/30/21 03:30 72 14 139/79 (99) 95 Nasal Cannula 2.00 03/30/21 03:00 78 16 167/80 (109) 95 Nasal Cannula 2.00 03/30/21 02:00 77 17 158/86 (106) 92 Nasal Cannula 2.00 03/30/21 01:00 64 03/30/21 01:00 64 16 143/69 (95) 97 Nasal Cannula 2.00 03/30/21 00:00 57 15 117/66 (83) 98 Nasal Cannula 2.00 03/29/21 23:35 98 Nasal Cannula 2.00 03/29/21 23:20 37.0 Nasal Cannula 2.00 03/29/21 23:20 98 Nasal Cannula 2.00 03/29/21 23:00 66 13 125/66 (85) 97 Nasal Cannula 2.00 03/29/21 22:00 63 15 130/60 (83) 97 Nasal Cannula 2.00 03/29/21 21:00 74 12 136/72 (93) 96 Nasal Cannula 2.00 03/29/21 20:00 96 Nasal Cannula 2.00 03/29/21 20:00 64 14 125/66 (85) 95 Nasal Cannula 2.00 03/29/21 20:00 64 14 114/62 (79) 96 Nasal Cannula 2.00 03/29/21 19:46 36.4 03/29/21 19:00 64 03/29/21 19:00 36.6 66 14 128/64 (85) 96 Nasal Cannula 2.00 03/29/21 18:19 03/29/21 18:00 75 21 169/78 (108) 96 Nasal Cannula 2.00 03/29/21 17:00 65 11 139/78 (98) 95 Nasal Cannula 2.00 03/29/21 16:00 67 16 171/80 (110) 93 Nasal Cannula 2.00 03/29/21 15:32 36.2 03/29/21 15:03 95 Nasal Cannula 2.00 03/29/21 15:00 67 11 182/84 (116) 95 Nasal Cannula 2.00 03/29/21 14:00 56 14 132/65 (87) 95 Nasal Cannula 2.00 03/29/21 13:00 58 14 107/57 (74) 94 Nasal Cannula 2.00 I & O 03/30/21 07:00 Intake Total 2250 ml Output Total 350 ml Balance 1900 ml General Appearance: No Apparent Distress, WD/WN Eyes: Bilateral Eye Normal Inspection, Bilateral Eye PERRL, Bilateral Eye EOMI HEENT: Pharynx Normal Neck: Supple Respiratory: Chest Non Tender, Lungs Clear, Other (POOR EFFORT - PT NOT FOLLOWING COMMANDS) Cardiovascular: Regular Rate, Rhythm, Systolic Murmur (II/) Gastrointestinal: Normal Bowel Sounds, Non Tender, Soft Rectal: Deferred Back: No CVA Tenderness Extremity: Non Tender, No Calf Tenderness, No Pedal Edema Neurologic/Psychiatric: Alert, Oriented x3 Skin: Normal Color, Warm/Dry Lymphatic: No Adenopathy Results Lab Laboratory Tests 03/29/21 17:59: Glucometer 138H 03/29/21 23:20: Glucometer 126H 03/30/21 04:30: White Blood Count 10.3, Red Blood Count 3.77L, Hemoglobin 11.9L, Hematocrit 35L, Mean Corpuscular Volume 93, Mean Corpuscular Hemoglobin 32, Mean Corpuscular Hemoglobin Concent 34, Red Cell Distribution Width 13.2, Platelet Count 171, Mean Platelet Volume 10.2, Immature Granulocyte % (Auto) 0, Neutrophils (%) (Auto) 78H, Lymphocytes (%) (Auto) 11L, Monocytes (%) (Auto) 10, Eosinophils (%) (Auto) 0, Basophils (%) (Auto) 0, Neutrophils # (Auto) 8.1H, Lymphocytes # (Auto) 1.1, Monocytes # (Auto) 1.0, Eosinophils # (Auto) 0.0, Basophils # (Auto) 0.0, Immature Granulocyte # (Auto) 0.0, Sodium Level 127L, Potassium Level 4.5, Chloride Level 97L, Carbon Dioxide Level 18L, Anion Gap 12, Blood Urea Nitrogen 11, Creatinine 0.73, Estimat Glomerular Filtration Rate 88, BUN/Creatinine Ratio 15, Glucose Level 138H, Calcium Level 8.5, Corrected Calcium 9.0, Phosphorus Level 2.8, Magnesium Level 1.7, Total Bilirubin 1.1H, Aspartate Amino Transf (AST/SGOT) 21, Alanine Aminotransferase (ALT/SGPT) < 6, Alkaline Phosphatase 39L , Total Protein 6.0L, Albumin 3.4 Microbiology 03/28/21 MRSA Screen - Final, Complete MRSA not isolated Assessment/Plan Assessment/Plan Assessment and Plan HYPERTENSIVE ENCEPHALOPATHY HYPERTENSIVE CRISIS DELIRIUM CHRONIC HYPERTENSION MEDICATION INTOLERANCE CORONARY ARTERY DISEASE DIABETES MELLITUS CHRONIC HYPERLIPIDEMIA PARKINSON'S 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 LEGER - PT REPORTS THAT HE CANNOT TAKE CLONIDINE DUE TO DRY MOUTH - HIS REPORTS THAT THE DRY MOUTH IS UNBEARABLE FOR ARIANNE...THIS MEDICATION HAS BEEN DISCONTINUED AND WE WILL CONTINUE WITH THE NIPRIDE DRIP FOR NOW AND WEAN DOWN ABLE, ORAL MEDICATIONS ARE GIVEN AND BLOOD PRESSURE RESPONDS TO THE MEDICATIONS. - WILL DEFER TO CARDIOLOGY FOR MEDICATION MANAGEMENT - SEE MED LIST FOR CURRENT REGIMEN - HYDRALAZINE, CARDURA, LOSARTAN, PROPRANOLOL, AND ADJUST MEDICATIONS ABLE. DELIRIUM - MULTIFACTORIAL - PT'S PARKINSON'S DISEASE MIXED WITH HIS HYPERTENSIVE ENCEPHALOPATHY CAUSING WORSENING MENTAL FUNCTION. - DISCUSSED WITH PT'S - THIS WILL LIKELY TAKE A WHILE TO CLEAR. CORONARY ARTERY DISEASE - SUPPORTIVE CARE DIABETES MELLITUS -HOLD HOME REGIMEN FOR NOW - HAD CONTRAST ON 03/29/2021 CHRONIC HYPERLIPIDEMIA - HOLD STATIN THERAPY - MAY BE AUGMENTING HIS WEAKNESS AND MAY NOT BENEFIT FROM CONTINUED USE OF STATIN THERAPY. PARKINSON'S - SINEMET RESTARTED. PROGRESSIVE WEAKNESS AND DECLINE AT HOME - ADVISED PT'S THAT HE REALLY NEEDS TO BE AT A [facility] FOR STRENGTHENING AND HOPEFULLY HE WILL BECOME STRONG ENOUGH TO RETURN HOME TO HER CARE. DISCUSSED WITH ACUÑA TODAY - HE REPORTS THAT HE UNDERSTANDS THAT HE IS WEAK, WOULD PREFER NOT TO GO TO THE [facility], BUT IS WILLING TO DO RECOMMENDED BY THIS PLASTER MAKER FOR A SHORT PERIOD OF TIME LONG HIS INSURANCE WILL COVER THE COST. JOSH MORENO MD Mar 30, 2021 12:53
[2021-03-30] MEDS: ENOXAPARIN 40 MG/0.4 ML (LOVENOX) SYR SC SCH (18:30)
[2021-03-30] MEDS: cefTRIAXone 1 GM PRE-MIX 50 ML IV SCH (18:31)
[2021-03-30] MEDS: ONDANSETRON 4 MG/2 ML (SDV) Z0FRAN IV PRN (19:39)
[2021-03-30] MEDS: doxAzosin 4 MG (CARDURA) TAB PO SCH (21:39)
[2021-03-30] MEDS: NITRO DRIP 25000 MCG/D5W 250 ML IV SCH (21:39)
[2021-03-30] MEDS: traZODone 50 MG (DESYREL) TAB PO PRN (23:07)
[2021-03-31] VITALS (11 sets, daily range): BP systolic 127–160; BP diastolic 78–130
[2021-03-31] MEDS: inSUlin ASPART (NovoLOG) 1 UNIT/0.01 ML (CHARGE PER UNIT) SQ SCH ×2 (00:56→05:41)
[2021-03-31] MEDS: ONDANSETRON 4 MG/2 ML (SDV) Z0FRAN IV PRN (02:03)
--- NOTE | 2021-03-31 04:45 | Tele-ICU Progress Note ---
Subjective Date Seen by a Provider: Mar 31, 2021 Time Seen by a Provider: 04:42 Subjective/Events-last exam called for 3 episodes of nausea, not responsive to IV Zofran, will give IV Benadryl and get KUB Sepsis Event Evaluation Height, Weight, BMI Height: 6'0.00" Weight: 230lbs. 0.0oz. 104.272861ow; 28.42 BMI Method: Exam Exam Patient acknowledged, consented, and participated in this virtual visit which was conducted using real time audio/video Vital Signs Date Time Temp Pulse Resp B/P (MAP) Pulse Ox O2 Delivery O2 Flow Rate FiO2 03/31/21 03:00 81 16 138/80 (99) 90 Room Air 03/31/21 02:00 89 18 140/78 (98) 94 Room Air 03/31/21 01:00 88 12 132/86 (101) 93 Room Air 03/31/21 01:00 88 03/31/21 00:00 85 17 159/91 (113) 92 Room Air 03/30/21 23:00 81 16 144/77 (98) 93 Room Air 03/30/21 22:00 93 133/92 (106) 91 Room Air 03/30/21 21:00 93 12 144/85 (111) 92 Room Air 03/30/21 20:00 89 14 167/83 (102) 91 Room Air 03/30/21 19:00 79 14 161/89 (113) 93 Room Air 03/30/21 19:00 79 03/30/21 18:00 80 16 144/62 (89) 92 Room Air 03/30/21 17:00 76 15 158/80 (106) 95 Nasal Cannula 2.00 03/30/21 16:00 92 16 159/76 (103) 93 Nasal Cannula 2.00 03/30/21 15:28 93 Room Air 03/30/21 15:00 79 16 147/79 (101) 92 Nasal Cannula 2.00 03/30/21 14:00 58 12 137/79 (98) 94 Nasal Cannula 2.00 03/30/21 13:00 76 16 130/67 (88) 94 Nasal Cannula 2.00 03/30/21 12:55 72 03/30/21 12:00 94 Room Air 03/30/21 12:00 68 13 151/76 (101) 95 Nasal Cannula 2.00 03/30/21 11:00 89 19 156/77 (103) 95 Nasal Cannula 2.00 03/30/21 10:00 66 13 140/66 (90) 93 Nasal Cannula 2.00 03/30/21 09:00 68 16 146/79 (101) 93 Nasal Cannula 2.00 03/30/21 08:00 94 Room Air 03/30/21 08:00 72 14 137/67 (90) 95 Nasal Cannula 2.00 03/30/21 07:00 73 03/30/21 07:00 61 12 128/55 (79) 93 Nasal Cannula 2.00 03/30/21 06:25 Room Air 03/30/21 06:00 78 12 113/61 (78) 93 Nasal Cannula 2.00 03/30/21 05:00 75 22 140/95 (110) 94 Nasal Cannula 2.00 I & O 03/31/21 06:59 Intake Total 1540 ml Output Total 400 ml Balance 1140 ml Height & Weight Height: 6'0.00" Weight: 230lbs. 0.0oz. 104.732395bv; 28.42 BMI Method: General Appearance: Other (CONFUSED, IN NO DISTRESS) HEENT: Pharynx Normal Neck: Supple Respiratory: Chest Non Tender, Lungs Clear, Other (POOR EFFORT - PT NOT FOLLOWING COMMANDS) Cardiovascular: Regular Rate, Rhythm, Systolic Murmur (II/) Capillary Refill: Less Than 3 Seconds Peripheral Pulses: 2+ Radial Pulses (R), 2+ Radial Pulses (L) Gastrointestinal: normal bowel sounds, non tender, soft Extremity: Non Tender, No Calf Tenderness, No Pedal Edema Neurologic/Psychiatric: Disoriented, Other (GROGGY, DOES NOT FOLLOW COMMANDS) Skin: Normal Color, Warm/Dry Lymphatic: No Adenopathy Results Lab Laboratory Tests 03/30/21 04:30 Assessment/Plan Assessment/Plan nausea, get KUB and try IV benadryl Yosvany Wade MD Critical Care: Critically Ill Patient Time spent with patient (mins): 10 LACI WADE MD Mar 31, 2021 04:45
[2021-03-31] MEDS ORDERED: diphenhydrAMINE 50 MG/ML INJ (BENADRYL) IVP ONE (05:00)
[2021-03-31 05:11] LABS: BASOPHILS % (AUTO) 0 % (0-10); EOSINOPHILS # (AUTO) 0.1 10^3/uL (0.0-0.3); EOSINOPHILS % (AUTO) 1 % (0-10); HEMATOCRIT 37 % (40-54); HEMOGLOBIN 12.6 g/dL (13.3-17.7); LYMPHOCYTES # (AUTO) 0.9 10^3/uL (1.0-4.0); LYMPHOCYTES % (AUTO) 10 % (12-44); MEAN CORPUSCULAR HEMOGLOBIN 31 pg (25-34); MEAN CORPUSCULAR HGB CONC 34 g/dL (32-36); MEAN CORPUSCULAR VOLUME 92 fL (80-99); MEAN PLATELET VOLUME 10.7 fL (9.0-12.2); MONOCYTES # (AUTO) 0.9 10^3/uL (0.0-1.0); MONOCYTES % (AUTO) 9 % (0-12); NEUTROPHILS # (AUTO) 7.6 10^3/uL (1.8-7.8); NEUTROPHILS % (AUTO) 80 % (42-75); PLATELET COUNT 191 10^3/uL (130-400); WHITE BLOOD COUNT 9.5 10^3/uL (4.3-11.0)
[2021-03-31 05:26] LABS: ALBUMIN 3.3 GM/DL (3.2-4.5)
[2021-03-31 05:27] LABS: CALCIUM 8.4 MG/DL (8.5-10.1)
[2021-03-31] MEDS: CATHETER FLUSH 10 ML SYR IV SCH (05:27)
[2021-03-31] MEDS: NS IV 1000 ML 1,000 ML IV SCH ×2 (05:27→07:51)
[2021-03-31] MEDS: hydrALAZINE (APRESOLINE) 25 MG TAB PO SCH (05:28)
[2021-03-31 05:30] LABS: BILIRUBIN,TOTAL 0.9 MG/DL (0.1-1.0)
[2021-03-31 05:31] LABS: PHOSPHORUS 2.7 MG/DL (2.3-4.7)
[2021-03-31 05:32] LABS: CREATININE SERUM 0.67 MG/DL (0.60-1.30)
[2021-03-31 05:34] LABS: MAGNESIUM 1.8 MG/DL (1.6-2.4)
--- NOTE | 2021-03-31 06:03 | Diagnostic Imaging Report ---
INDICATION: Fever and vomiting. COMPARISON: None FINDINGS: Supine and upright views the abdomen demonstrate nonobstructive small bowel gas pattern. Moderate amount of air and stool are seen scattered throughout the colon. No abnormal air-fluid levels or large collection of free intraperitoneal air is seen. No abnormal extraosseous calcifications or radiopaque foreign bodies are identified. Bony structures are age-appropriate. IMPRESSION: 1. Nonobstructive small bowel gas pattern. 2. Moderate chronic air and stool. Please correlate for constipation. Dictated by: Dictated on workstation # [id number]
[2021-03-31] MEDS: SINEMET 25/100 (CARBIDOPA/LEVODOPA) TAB PO SCH (07:52)
[2021-03-31] MEDS: LOSARTAN 50 MG (COZAAR) TAB PO SCH (07:53)
[2021-03-31] MEDS: PROPRANOLOL ER 60 MG CAP (INDERAL LA) PO SCH (07:54)
[2021-03-31] MEDS: PANTOPRAZOLE 40 MG (PROTONIX) TAB PO SCH (07:54)
[2021-03-31] MEDS: ASPIRIN E.C. 81 MG (ECOTRIN) TAB PO SCH (07:55)
--- NOTE | 2021-03-31 09:20 | Discharge Summary ---
Diagnosis/Chief Complaint Date of Admission Mar 29, 2021 at 08:30 Date of Discharge Discharge Summary Discharge Physical Examination Allergies: Coded Allergies: hydrocodone (Unverified Allergy, Mild, 03/22/07) amlodipine (Unverified Allergy, Unknown, 10/25/13) benazepril (Unverified Allergy, Unknown, 10/25/13) codeine (Verified Allergy, Unknown, 09/02/05) telmisartan (Unverified Allergy, Unknown, 10/25/13) Vitals & I&Os Vital Signs Date Time Temp Pulse Resp B/P (MAP) Pulse Ox O2 Delivery O2 Flow Rate FiO2 03/31/21 07:00 87 21 142/82 (102) 93 Room Air 03/31/21 04:00 37.0 03/30/21 17:00 2.00 Hospital Course Pending Labs Laboratory Tests 03/31/21 04:40: White Blood Count 9.5, Red Blood Count 4.01, Hemoglobin 12.6, Hematocrit 37, Mean Corpuscular Volume 92, Mean Corpuscular Hemoglobin 31, Mean Corpuscular Hemoglobin Concent 34, Red Cell Distribution Width 13.2, Platelet Count 191, Mean Platelet Volume 10.7, Immature Granulocyte % (Auto) 1, Neutrophils (%) (Auto) 80, Lymphocytes (%) (Auto) 10, Monocytes (%) (Auto) 9, Eosinophils (%) (Auto) 1, Basophils (%) (Auto) 0, Neutrophils # (Auto) 7.6, Lymphocytes # (Auto) 0.9, Monocytes # (Auto) 0.9, Eosinophils # (Auto) 0.1, Basophils # (Auto) 0.0, Immature Granulocyte # (Auto) 0.1, Sodium Level 130, Potassium Level 4.0, Chloride Level 98, Carbon Dioxide Level 20, Anion Gap 12, Blood Urea Nitrogen 9, Creatinine 0.67, Estimat Glomerular Filtration Rate 90, BUN/Creatinine Ratio 13, Glucose Level 135, Calcium Level 8.4, Corrected Calcium 9.0, Phosphorus Level 2.7, Magnesium Level 1.8, Total Bilirubin 0.9, Aspartate Amino Transf (AST/SGOT) 19, Alanine Aminotransferase (ALT/SGPT) 6, Alkaline Phosphatase 42, Total Protein 6.0, Albumin 3.3 Discharge Instructions to patient/family Please see electronic discharge instructions given to patient. Discharge Medications Reviewed and agree with Discharge Medication list on patient's Discharge Instruction sheet JOSH MORENO MD Mar 31, 2021 09:19
[2021-03-31] MEDS ORDERED: CARB1TAB19 PO (09:29)
[2021-03-31] MEDS ORDERED: ASPI-1238 PO (09:29)
[2021-03-31] MEDS ORDERED: CEFD300C3 PO (09:29)
[2021-03-31] MEDS ORDERED: DOXA4TAB2 PO (09:29)
[2021-03-31] MEDS ORDERED: UBID100C44 PO (09:29)
[2021-03-31] MEDS ORDERED: LOSA50TA63 PO (09:29)
[2021-03-31] MEDS ORDERED: TRZ50T PO (09:29)
[2021-03-31] MEDS ORDERED: HYDR-3924 PO (09:29)
[2021-03-31] MEDS ORDERED: ALPR0.25 PO (09:29)
[2021-03-31] MEDS ORDERED: PANT40TA52 PO (09:29)
[2021-03-31] MEDS ORDERED: PROP60CA PO (09:29)
--- NOTE | 2021-03-31 09:32 | Discharge Inst-Skilled Nursing ---
Discharge Inst-Skilled NF Reconcile Patient Problems Problems Reviewed?: Yes Patient Instructions Patient Problems: HYPERTENSIVE ENCEPHALOPATHY HYPERTENSIVE CRISIS DELIRIUM CHRONIC HYPERTENSION MEDICATION INTOLERANCE CORONARY ARTERY DISEASE DIABETES MELLITUS CHRONIC HYPERLIPIDEMIA PARKINSON'S DISEASE PROGRESSIVE WEAKNESS Consult/Follow Up/Orders Follow Up Appt.: [facility] wk [facility] [address] hortencia Samuel NF Admit to: [facility] (SNF) I certify that [facility] services are required to be given on an inpatient basis because of the above named patient's need for [facility] care on a continuing basis for the conditions(s) for which he/she was receiving inpatient hospital services prior to his/her transfer to the [facility]. Longterm Facility Order: Nursing Services, Pharmacy District Manager-Evaluate & Treat, Physical Therapy-Evaluate & Treat Oxygen Delivery Method: Room Air Discharge Diet: Regular Diet Daily Activity as Tolerated: Yes Resuscitation Status: Do Not Resuscitate New & Resume Previous Orders New & Resume Previous Orders cbc, cmp in 1 wk from discharge physical therapy and occ therapy to work on strengthening, teaching pt to feed himself, dress himself and aide with bath-giving. Josh Roberson Mar 31, 2021 09:30 JOSH ROBERSON MD Mar 31, 2021 09:32
--- NOTE | 2021-03-31 09:53 | Cardiology Progress Note ---
Subjective Date Seen by Provider: Mar 31, 2021 Time Seen by Provider: 09:50 Subjective/Events-last exam Patient is laying down in bed, feeling better. No new complaint, reporting some hallucination. Review of Systems General: No Chills, No Night Sweats; Fatigue, Malaise; No Appetite, No Other HEENT: No Head Aches, No Visual Changes, No Eye Pain, No Ear Pain, No Dysp hasia, No Sinus Congestion, No Post Nasal Drip, No Sore Throat, No Other Pulmonary: No Dyspnea, No Cough, No Pleuritic Chest Pain, No Other Cardiovascular: No: Chest Pain, Palpitations, Orthopnea, Paroxysmal Noc. Dyspnea, Edema, Lt Headedness, Other Objective-Cardiology Exam Last Set of Vital Signs Vital Signs 03/30/21 03/31/21 17:00 08:00 Pulse Ox 95 O2 Delivery Room Air O2 Flow Rate 2.00 I&O Intake and Output 03/31/21 00:00 Intake Total 1760 ml Output Total 750 ml Balance 1010 ml Intake Oral 560 ml IV Total 1200 ml Output Urine Total 750 ml # Urine Diapers 4 General: Alert, Oriented X3, Cooperative HEENT: Atraumatic, PERRLA Neck: Supple, No JVD, No Thyromegaly Lungs: Clear to Auscultation, Normal Air Movement Heart: Regular Rate, Normal S1, Normal S2, Other (Systolic murmur at the left sternal border) Abdomen: Normal Bowel Sounds, Soft, No Tenderness, No Hepatosplenomegaly, No Masses Extremities: No Clubbing, No Cyanosis, No Edema, Normal Pulses, No Tenderness/Swelling Skin: No Rashes, No Breakdown, No Significant Lesion Neuro: Normal Speech, Normal Tone, Sensation Intact Psych/Mental Status: Mood NL Results Lab Laboratory Tests 03/31/21 04:40 A/P-Cardiology Admission Diagnosis Hypertensive encephalopathy Malignant hypertension Parkinson Change in mental status Assessment/Plan Status post acute change in mental status with hypertensive encephalopathy, better at this time. Had transient episode of delirium. Improved Currently having some hallucination on and off. Malignant hypertension, difficult to control. Patient has intolerance to multiple medication, Intolerant to amlodipine due to sinus bradycardia and multiple pauses with first-degree AV block and right bundle branch block. We tried propranolol back to 80 mg once a day due to the tremor. Patient was concerned about stopping the propranolol especially with his tremor. Patient continued to have bradycardia and we changed it back to 60 mg once a day. Intolerance to Cozaar with leg pain and cough. Intolerance to Micardis with leg and ankle swelling. Intolerance to Lotrel with swelling and cough. Intolerance to diltiazem. Intolerant to isosorbide with headache Intolerant to clonidine with dry mouth. Currently on hydralazine and losartan and propranolol, concerned that losartan is giving him cough and weakness. Cardura was added on March 29, 2021 Blood pressure is better, currently off nitroglycerin drip. Sinus node dysfunction, sinus bradycardia with generalized fatigue and loss of energy. We discussed the possibility of pacemaker, the advantage of pacemaker is the ability of using high dose of beta-blockers and calcium channel blockers which could be helpful in his situation Coronary artery disease Coronary artery bypass surgery in August 2005 at [facility]. Cardiac catheterization was in March 2007. It showed severe left coronary artery disease. There was a patent graft to an obtuse marginal branch of the left circumflex artery and a patent graft to the distal left anterior descending artery. A saphenous vein graft to the mid left anterior descending artery was occluded. The right coronary artery was dominant and had mild to moderate disease. Left ventricular ejection fraction was 60% and there was minimal localized anterolateral hypokinesis. Left ventricular end-diastolic pressure was normal. Stress test July 2018 revealed no ischemia or infarct. Continue to monitor, no changes are recommended Echocardiogram was done on March 29, 2021 showing normal LV size with left ventricular hypertrophy, ejection fraction 55 to 60%, left atrial dilatation, mild mitral regurgitation, PA pressure 25 to 30 mmHg Holter monitor done in July 2020 showing sinus rhythm with episodes of bradycardia, sinus pauses with escape junctional bradycardia and first-degree AV block with right bundle branch block, occasional PVCs and PACs and short PAT. Sinus node dysfunction, persistent bradycardia and fatigue. Taking propranolol, was intolerant to amlodipine in the past. I am considering a pacemaker if needed and patient is requiring more aggressive treatment with beta-blockers and calcium channel blockers. Carotid artery stenosis, hx of L CEA in 2005, CTA of head and neck done Nov 2020 showing bilateral nonobstructive disease Maturity onset diabetes mellitus being managed by Dr. Roberson. Hyperlipidemia, maintained on Lipitor, patient was having weakness in his lower extremities, generalized weakness. Concerned about myopathy. I will stop atorvastatin at this point Chronic tremor, advanced Parkinson, worsening tremor, patient was started back on Sinemet Sleep apnea syndrome; patient does not wish to comply with therapy. Chronic left sided hearing loss Intolerance to LILIAN inhibitors and ARBs due to multiple symptoms, currently tolerating losartan. Bilateral Dupytren's contractures of hands S/p L carpal tunnel surgery by Dr Grider on Oct 30, 2013. Bilateral leg discomfort, but ABIs of 01/06/15 were normal Chronic mild intermittent dependent leg swelling, likely related to venous insuff LISANDRO LEGER MD Mar 31, 2021 09:53
== END 2021-03-31 13:59 | DRG 78 ==
LOC: EDUNIT# 17:38 → ER 17:39 → CSD 21:15 → ICU 03-28 18:36 → OBSVTOIN 03-29 08:30
PROVIDERS: ADMIT Family Medicine; ATTEND Family Medicine
DX: I67.4 Hypertensive encephalopathy (principal); I16.9 Hypertensive crisis, unspecified; I25.810 Atherosclerosis of coronary artery bypass graft(s) without angina pectoris; E87.1 Hypo-osmolality and hyponatremia; I10 Essential (primary) hypertension; G20 Parkinson's disease; E11.9 Type 2 diabetes mellitus without complications; I25.10 Atherosclerotic heart disease of native coronary artery without angina pectoris; Z20.822 Contact with and (suspected) exposure to COVID-19; E78.5 Hyperlipidemia, unspecified; K21.9 Gastro-esophageal reflux disease without esophagitis; I49.5 Sick sinus syndrome; I34.0 Nonrheumatic mitral (valve) insufficiency; I65.23 Occlusion and stenosis of bilateral carotid arteries; M72.0 Palmar fascial fibromatosis [Dupuytren]; I87.2 Venous insufficiency (chronic) (peripheral); H54.7 Unspecified visual loss; R68.2 Dry mouth, unspecified; Z87.891 Personal history of nicotine dependence; Z97.4 Presence of external hearing-aid; Z86.73 Personal history of transient ischemic attack (TIA), and cerebral infarction without residual deficits; Z95.1 Presence of aortocoronary bypass graft; Z79.84 Long term (current) use of oral hypoglycemic drugs; Z79.82 Long term (current) use of aspirin; Z79.899 Other long term (current) drug therapy; Z82.49 Family history of ischemic heart disease and other diseases of the circulatory system; Z88.5 Allergy status to narcotic agent; Z88.8 Allergy status to other drugs, medicaments and biological substances
CPT/HCPCS: 36415; 70450; 70496; 70498; 71045; 74019; 80048; 80053; 81000; 82550; 82553; 82805; 82947; 83735; 84100; 84484; 85007; 85025; 85027; 85379; 85610; 85730; 87081; 87635; 87636; 87804; 93005; 93041; 93306; G0378

== ENCOUNTER 2021-04-01 17:33 | Emergency (ER) | payer MEDICARE, BC ==
[~2021-04-01] VITALS: Ht 182 cm; Wt 68.0 kg
[~2021-04-01 17:33] MED LIST changes: +ALPR0.25 PO; +CARB1TAB19 PO; +CEFD300C3 PO; +DOXA4TAB2 PO; +HYDR-3924 PO; +SULF1TAB38 PO; +TRZ50T PO
--- NOTE | 2021-04-01 18:03 | ED Fall/Injury ---
General Chief Complaint: Head/Cervical Problems Stated Complaint: FALL Nursing Triage Note: PT PRESENTS TO ED VIA EMS FROM [facility] FOR COMPLAINTS OF A FALL WHILE STANDING TODAY AROUND 1600. FALL WAS WITNESSED AND THERE WAS NO LOC. PT DOES HAVE ABRASION TO UPPER FOREHEAD. Source: residential records (ALL PAST MEDICAL HISTORY IS FROM OLD CHART) Exam Limitations: other (PT IS CONFUSED WITH NON-SENSICAL SPEECH) History of Present Illness Date Seen by Provider: Apr 01, 2021 Time Seen by Provider: 17:47 Initial Comments PT ARRIVES VIA EMS PRIOR TO MY ARRIVAL, FROM [facility]IA [facility] PT REPORTEDLY HAD A WITNESSED FALL FROM A STANDING POSITION, HITTING HEAD ON HARD LINOLEUM FLOOR NO LOSS OF CONSCIOUSNESS PT WITH PARKINSON'S AND DEMENTIA, AND PT IS A NORMAL BASELINE MENTATION--PT HAS COMPLETE "WORD SALAD" PT HAS BEEN ON LOVENOX, AND LAST DOSE WAS YESTERDAY PT WAS HOSPITALIZED HERE 03/27/21 AND DISMISSED YESTERDAY FOR HYPERTENSIVE ENCEPHALOPATHY. HE HAS HAD 3 ADMITS HERE SINCE 12/2020 FOR HYPERTENSIVE ENCEPHALOPATHY, AND SEEN IN NOVEMBER FOR TIA IT APPEARS THAT PT HAD BEEN RESIDING AT [facility] PRIOR TO MOST RECENT ADMIT, AND WAS ADMITTED TO [facility] YESTERDAY ON DISMISSAL FROM HOSPITAL. NO OTHER INFORMATION IS AVAILABLE AT THIS TIME. PCP: DR. MORENO Allergies and Home Medications Allergies Coded Allergies: hydrocodone (Unverified Allergy, Mild, 03/22/07) amlodipine (Unverified Allergy, Unknown, 10/25/13) benazepril (Unverified Allergy, Unknown, 10/25/13) codeine (Verified Allergy, Unknown, 09/02/05) telmisartan (Unverified Allergy, Unknown, 10/25/13) Patient Home Medication List Home Medication List Reviewed: Yes Alprazolam (Xanax) 0.25 Mg Tablet, 0.25 MG PO Q6H PRN for ANXIETY Prescribed by: JOSH MORENO on 03/31/21929 Aspirin (Aspirin EC) 81 Mg Tablet.dr, 81 MG PO HS Prescribed by: JOSH MORENO on 03/31/21928 Carbidopa/Levodopa (Carbidopa-Levodopa 25-100 Tab) 1 Each Tablet, 1 EA PO TIDWM Prescribed by: JOSH MORENO on 03/31/21928 Cefdinir (Cefdinir) 300 Mg Capsule, 300 MG PO BID Prescribed by: JOSH MORENO on 03/31/21928 Doxazosin Mesylate (Doxazosin Mesylate) 4 Mg Tablet, 8 MG PO HS Prescribed by: JOSH MORENO on 03/31/21928 Hydralazine HCl (Hydralazine HCl) 50 Mg Tablet, 50 MG PO TID Prescribed by: JOSH MORENO on 03/31/21928 Losartan Potassium (Losartan Potassium) 50 Mg Tablet, 50 MG PO DAILY Prescribed by: JOSH MORENO on 03/31/21928 Pantoprazole Sodium (Pantoprazole Sodium) 40 Mg Tablet.dr, 40 MG PO BIDAC Prescribed by: JOSH MORENO on 03/31/21928 Propranolol HCl (Propranolol HCl ER) 60 Mg Cap.sa.24h, 60 MG PO DAILY Prescribed by: JOSH MORENO on 03/31/21928 Trazodone HCl (Trazodone HCl) 50 Mg Tablet, 50 MG PO HS PRN for ANXIETY Prescribed by: JOSH MORENO on 03/31/21928 Ubidecarenone (Co Q-10) 100 Mg Capsule, 100 MG PO DAILY Prescribed by: JOSH MORENO on 03/31/21928 Discontinued Medications Atorvastatin Calcium (Atorvastatin Calcium) 10 Mg Tablet, 10 MG PO HS, (Reported) Discontinued Reason: No Longer Taking Entered as Reported by: FRANSISCA CAMEJO on 01/05/21 1131 Carbidopa/Levodopa (Carbidopa-Levodopa 25-100 Tab) 1 Each Tablet, 1 EA PO BID, (Reported) Discontinued Reason: No Longer Taking Entered as Reported by: FRANSISCA CAMEJO on 03/29/21 1221 Clonidine (Clonidine TTS 1 Patch) 1 Each Patch.tdwk, 0.1 MG TD Q7D@09 Discontinued Reason: Duplicate Order Prescribed by: JOSH MORENO on 02/03/21 1253 Clonidine (Clonidine TTS 1 Patch) 1 Each Patch.tdwk, 1 PATCH TD Q7D, (Reported) Entered as Reported by: FRANSISCA CAMEJO on 03/29/21 1221 Hydralazine HCl (Hydralazine HCl) 25 Mg Tablet, 37.5 MG PO Q8HR Discontinued Reason: Duplicate Order Prescribed by: JOSH MORENO on 02/03/21 1253 Hydralazine HCl (Hydralazine HCl) 25 Mg Tablet, 37.5 MG PO 0600,1400,2200, (Reported) Entered as Reported by: FRANSISCA CAMEJO on 03/29/21 1221 Losartan Potassium (Losartan Potassium) 50 Mg Tablet, 50 MG PO DAILY Discontinued Reason: No Longer Taking Prescribed by: JOSH MORENO on 02/03/21 1253 Metformin HCl (Metformin HCl ER) 500 Mg Tab.er.24h, 500 MG PO BIDAC, (Reported) Entered as Reported by: FRANSISCA CAMEJO on 01/05/21 1131 Pantoprazole Sodium (Pantoprazole Sodium) 40 Mg Tablet.dr, 40 MG PO BID Discontinued Reason: Duplicate Order Prescribed by: JOSH MORENO on 02/03/21 1254 Sennosides/Docusate Sodium (Stool Softener-Laxative Tablet) 1 Each Tablet, 1 EA PO BID Discontinued Reason: No Longer Taking Prescribed by: JOSH MORENO on 02/03/21 1253 Sulfamethoxazole/Trimethoprim (Bactrim Ds Tablet) 1 Each Tablet, 1 EACH PO BID, (Reported) Entered as Reported by: VISH GREENE on 03/27/21 2300 Review of Systems Review of Systems Constitutional: other (UNABLE TO OBTAIN) Past [place]ge-Retgqq-Mzsvjp Hx Patient Social History Tobacco Use?: No Substance use?: No Alcohol Use?: Yes Alcohol Frequency: Rarely Pt feels they are or have been: No Immunizations Up To Date First/Initial COVID19 Vaccinat: FEB 2020 Second COVID19 Vaccination Jose: APRIL 2020 Third COVID19 Vaccination Date: NOV 2020 Past Medical History Surgery/Hospitalization HX: hernia x3, bilat cea, turp, ortho, niddm, htn, high lipids, TIA, DELERIUM, GERD, CAD, PARKINSONS, ANXIETY, PVD Surgeries: Yes (MENISCUS REPAIR, TURP, HERNIA X3, bilateral ENDA RTERECTOMY,2005) Abdominal, Cardiac, CABG, Orthopedic, Transurethral Resection, Vascular Surgery Respiratory: No Cardiac: Yes (CABG X3 VESSELS;BILAT CAROTID ENDARTERECTOMY) Coronary Artery Disease, Hypertension, Peripheral Vascular Neurological: Yes (HYPERTENSIVE ENCEPHALOPATHY) Dementia, Parkinson's Disease, TIA Reproductive Disorders: No Sexually Transmitted Disease: No Genitourinary: Yes Benign Prostatic Hyperpl, Prostate Problems Gastrointestinal: No Musculoskeletal: Yes (KNEE SURGERY) Endocrine: No HEENT: Yes Hearing Impairment: Hard of Hearing, Hearing Aide Right Psychosocial: No Integumentary: No Blood Disorders: No Family Medical History Heart Disease, Hypertension Physical Exam Vital Signs Vital Signs - First Documented 04/01/21 17:43 Temp 36.8 Pulse 83 Resp 18 B/P (MAP) 165/104 (124) Pulse Ox 97 Capillary Refill : Less Than 3 Seconds Height, Weight, BMI Height: 6'0.00" Weight: 230lbs. 0.0oz. [id number]; 20.00 BMI Method: General Appearance: WD/WN, no apparent distress, other (PT WITH COMPLETE "WORD SALAD" AND UNABLE TO FOLLOW COMMANDS. SLIGHTLY LETHARGIC.) HEENT: PERRL/EOMI, TMs normal, other (ABRASION/SWELLING/HEMATOMA TO RIGHT FOREHEAD) Cardiovascular: regular rate, rhythm Respiratory: normal breath sounds Gastrointestinal: soft Extremities: normal capillary refill, pedal edema (1+ BILATERALLY) Neurologic/Psychiatric: other ( ABOVE; APPEARS TO MOVE ALL EXTREMITIES AND WITHDRAWS TO PAIN, BUT DOES NOT FOLLOW COMMANDS) Skin: normal color, warm/dry, other (ABRASION/HEMATOMA RIGHT FOREHEAD. ) [place] Coma Score Best Eye Response: (4) Open Spontaneously Best Verbal Response: (3) Inappropriate Words Best Motor Response: (4) Withdraws to Pain Tasha Total: 11 Progress/Results/Core Measures Results/Orders Lab Results Laboratory Tests Test 04/01/21 18:12 Range/Units White Blood Count 12.0 H 4.3-11.0 10^3/uL Red Blood Count 4.16 L 4.30-5.52 10^6/uL Hemoglobin 13.0 L 13.3-17.7 g/dL Hematocrit 39 L 40-54 % Mean Corpuscular Volume 93 80-99 fL Mean Corpuscular Hemoglobin 31 25-34 pg Mean Corpuscular Hemoglobin Concent 34 32-36 g/dL Red Cell Distribution Width 13.2 10.0-14.5 % Platelet Count 199 130-400 10^3/uL Mean Platelet Volume 9.9 9.0-12.2 fL Immature Granulocyte % (Auto) 0 % Neutrophils (%) (Auto) 80 H 42-75 % Lymphocytes (%) (Auto) 10 L 12-44 % Monocytes (%) (Auto) 9 0-12 % Eosinophils (%) (Auto) 0 0-10 % Basophils (%) (Auto) 0 0-10 % Neutrophils # (Auto) 9.6 H 1.8-7.8 10^3/uL Lymphocytes # (Auto) 1.2 1.0-4.0 10^3/uL Monocytes # (Auto) 1.1 H 0.0-1.0 10^3/uL Eosinophils # (Auto) 0.0 0.0-0.3 10^3/uL Basophils # (Auto) 0.0 0.0-0.1 10^3/uL Immature Granulocyte # (Auto) 0.0 0.0-0.1 10^3/uL Prothrombin Time 13.9 12.2-14.7 SEC INR Comment 1.0 0.8-1.4 Activated Partial Thromboplast Time 20 L 24-35 SEC Sodium Level 133 L 135-145 MMOL/L Potassium Level 3.8 3.6-5.0 MMOL/L Chloride Level 100 98-107 MMOL/L Carbon Dioxide Level 22 21-32 MMOL/L Anion Gap 11 5-14 MMOL/L Blood Urea Nitrogen 18 7-18 MG/DL Creatinine 0.95 0.60-1.30 MG/DL Estimat Glomerular Filtration Rate 77 BUN/Creatinine Ratio 19 Glucose Level 157 H 70-105 MG/DL Calcium Level 9.3 8.5-10.1 MG/DL Corrected Calcium 9.6 8.5-10.1 MG/DL Total Bilirubin 1.2 H 0.1-1.0 MG/DL Aspartate Amino Transf (AST/SGOT) 27 5-34 U/L Alanine Aminotransferase (ALT/SGPT) 10 0-55 U/L Alkaline Phosphatase 48 40-136 U/L Total Protein 6.5 6.4-8.2 GM/DL Albumin 3.6 3.2-4.5 GM/DL My Orders Orders - KYLEE VALERIO DO Ct Head/Face/Cervical Wo (04/01/21 17:54) Chest 1 View, Ap/Pa Only (04/01/21 17:54) Pelvis (04/01/21 17:54) Monitor-Rhythm Ecg Trace Only (04/01/21 17:54) Cbc With Automated Diff (04/01/21 17:54) Comprehensive Metabolic Panel (04/01/21 17:54) Protime With Inr (04/01/21 17:54) Partial Thromboplastin Time (04/01/21 17:54) Hydralazine Tablet (Apresoline Tablet) (04/01/21 19:15) Vital Signs/I&O 04/01/21 17:43 Temp 36.8 Pulse 83 Resp 18 B/P (MAP) 165/104 (124) Pulse Ox 97 Blood Pressure Mean: 124 Progress Progress Note : Progress Note NO DETERIORATION IN PT'S CONDITION DURING ER STAY Diagnostic Imaging Comments XRAYS AND CT REPORT--PER RADIOLOGIST REPORTS AT 1903 CXR-- FINDINGS: Single frontal view of the chest demonstrates normal heart size and pulmonary vascularity. Sternotomy wires are noted. The lungs are well aerated and clear. No large pleural effusion or pneumothorax is seen. The visualized osseous structures show no acute abnormalities. IMPRESSION: No acute cardiopulmonary process. PELVIS XRAY-- FINDINGS: A single AP view of the pelvis was performed. There is no radiographic evidence of acute fracture or dislocation. Pubic symphysis is within normal limits. SI joints are symmetric. Proximal femurs are intact, bilaterally. The femoro-acetabular joint spaces appear maintained on this single frontal view. Remainder of the bony pelvis is intact as well. No unexpected radiopaque foreign bodies are seen. Included small bowel loops are nondistended. IMPRESSION: No radiographic evidence of acute fracture or dislocation of the bony pelvis. CT HEAD/MAXILLOFACIAL/CERVICAL SPINE-- IMPRESSION: 1. No acute intracranial abnormality. No CT evidence of mass, acute infarct or intracranial hemorrhage. 2. 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 3. No acute fracture or dislocation of the facial bones. 4. No acute fracture dislocation of the cervical spine. 5. Mild to moderate multilevel degenerative changes of the cervical spine. Reviewed: Reviewed by Me Departure Communication (Admissions) 1904--SPOKE WITH DR. MORENO, SHE REPORTS THAT PT HAS HAD PROGRESSIVE DECLINE IN GENERAL HEALTH AND MENTATION WITH INCREASING EPISODES OF INCOHERENT SPEECH, HALLUCINATIONS, INCREASING CONFUSION, ETC. --C/W HIS DX OF DEMENTIA, AND "SUNDOWNER'S". SHE ADVISES TO GIVE HYDRALAZINE AND MAY SEND BACK TO LONGTERM, PT'S MENTATION IS AT HIS NORMAL BASELINE. Impression Primary Impression: S/P FALL FROM STANDING Additional Impressions: Minor head injury without loss of consciousness HTN (hypertension) Dementia Disposition: 03 XF SNF Condition: Stable Departure-Patient Inst. Decision time for Depature: 19:05 Referrals: JOSH MORENO MD (PCP/Family) Primary Care Physician Patient Instructions: Minor Head Injury, Adult ED Add. Discharge Instructions: CONTINUE ALL MEDICATIONS PRESCRIBED FOLLOW UP WITH DR. MORENO NEEDED All discharge instructions reviewed with patient and/or family. Voiced understanding. KYLEE VALERIO DO Apr 01, 2021 18:03
[2021-04-01 18:22] LABS: BASOPHILS % (AUTO) 0 % (0-10); EOSINOPHILS % (AUTO) 0 % (0-10); HEMATOCRIT 39 % (40-54); LYMPHOCYTES # (AUTO) 1.2 10^3/uL (1.0-4.0); LYMPHOCYTES % (AUTO) 10 % (12-44); MEAN CORPUSCULAR HEMOGLOBIN 31 pg (25-34); MEAN CORPUSCULAR HGB CONC 34 g/dL (32-36); MEAN CORPUSCULAR VOLUME 93 fL (80-99); MEAN PLATELET VOLUME 9.9 fL (9.0-12.2); MONOCYTES # (AUTO) 1.1 10^3/uL (0.0-1.0); MONOCYTES % (AUTO) 9 % (0-12); NEUTROPHILS # (AUTO) 9.6 10^3/uL (1.8-7.8); NEUTROPHILS % (AUTO) 80 % (42-75); PLATELET COUNT 199 10^3/uL (130-400)
[2021-04-01 18:29] LABS: PROTHROMBIN TIME PATIENT 13.9 SEC (12.2-14.7)
[2021-04-01 18:32] LABS: ALBUMIN 3.6 GM/DL (3.2-4.5); POTASSIUM 3.8 MMOL/L (3.6-5.0)
[2021-04-01 18:33] LABS: CALCIUM 9.3 MG/DL (8.5-10.1)
[2021-04-01 18:34] LABS: TOTAL PROTEIN 6.5 GM/DL (6.4-8.2)
[2021-04-01 18:36] LABS: BILIRUBIN,TOTAL 1.2 MG/DL (0.1-1.0)
[2021-04-01 18:38] LABS: CREATININE SERUM 0.95 MG/DL (0.60-1.30)
--- NOTE | 2021-04-01 18:57 | Diagnostic Imaging Report ---
INDICATION: Fall from standing. Abrasion to the forehead. Pain. COMPARISON: 03/28/2021. FINDINGS: Single frontal view of the chest demonstrates normal heart size and pulmonary vascularity. Sternotomy wires are noted. The lungs are well aerated and clear. No large pleural effusion or pneumothorax is seen. The visualized osseous structures show no acute abnormalities. IMPRESSION: No acute cardiopulmonary process. Dictated by: Dictated on workstation # [id number]
--- NOTE | 2021-04-01 18:57 | Diagnostic Imaging Report ---
PROCEDURE: CT head, face and cervical spine without contrast. TECHNIQUE: Multiple contiguous axial images were obtained through the head, neck and facial bones without the use of intravenous contrast. Sagittal and coronal reformations through the cervical spine and facial bones were also performed. Auto Exposure Controls were utilized during the CT exam to meet ALARA standards for radiation dose reduction. INDICATION: Fall from standing. Abrasion of the right forehead. Trauma. Pain. COMPARISON: 03/28/2021. FINDINGS: CT HEAD: The ventricles and cortical sulci are diffusely prominent, compatible with age-related volume loss. There are confluent areas of abnormal, low attenuation in the periventricular white matter. This is consistent with chronic small vessel ischemic changes. Old small lacunar infarct in the left subinsular region is also noted. There is no midline shift or mass-effect. No acute intra-axial hemorrhage is seen. There are no abnormal areas of increased or decreased density to suggest acute hemorrhage or edema. No extra-axial masses or collections are present. The bony calvarium is intact. CT FACIAL BONES: There is no acute fracture or dislocation of the facial bones. Bilateral medial and lateral pterygoid plates are intact. Bilateral zygomatic arches are intact as well. Additionally, there is no acute fracture or dislocation of the mandible. There is no fracture of the maxillary ridge. Paranasal sinuses are clear. There is no acute fracture of the paranasal sinuses. No abnormal air-fluid levels are seen. Nasal bones are intact. There is leftward deviation of the nasal septum, but this appears to be on a chronic basis. Nasal septum is otherwise intact as well. There is no fracture of the orbits. Globes are symmetric. No unexpected radiopaque foreign bodies are seen. CT CERVICAL SPINE: Static alignment is maintained. There is no significant anterolistheses or retrolisthesis. There is no evidence of jumped facets. Vertebral body heights are maintained. There is no acute fracture. No bony fragments are seen within the spinal canal. There are mild to moderate multilevel degenerative changes. This consists of intervertebral disc height loss with anterior and posterior endplate osteophyte formations, as well as multilevel facet arthropathy. These changes are greatest at the C5-C6 and C6-C7 levels. Prevertebral and paravertebral soft tissue structures are unremarkable. Note is made of calcified carotid atherosclerosis. Included portions of the lung apices are clear. IMPRESSION: 1. No acute intracranial abnormality. No CT evidence of mass, acute infarct or intracranial hemorrhage. 2. 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 3. No acute fracture or dislocation of the facial bones. 4. No acute fracture dislocation of the cervical spine. 5. Mild to moderate multilevel degenerative changes of the cervical spine. Dictated by: Dictated on workstation # [id number]
--- NOTE | 2021-04-01 19:00 | Diagnostic Imaging Report ---
INDICATION: Fall from standing. Pain. COMPARISON: None. FINDINGS: A single AP view of the pelvis was performed. There is no radiographic evidence of acute fracture or dislocation. Pubic symphysis is within normal limits. SI joints are symmetric. Proximal femurs are intact, bilaterally. The femoro-acetabular joint spaces appear maintained on this single frontal view. Remainder of the bony pelvis is intact as well. No unexpected radiopaque foreign bodies are seen. Included small bowel loops are nondistended. IMPRESSION: No radiographic evidence of acute fracture or dislocation of the bony pelvis. Dictated by: Dictated on workstation # [id number]
[2021-04-01 20:09] VITALS: BP 174/94
== END 2021-04-01 20:09 ==
LOC: EDUNIT# 17:33 → ER 17:34
DX: S09.90XA Unspecified injury of head, initial encounter (principal); I10 Essential (primary) hypertension; G20 Parkinson's disease; F02.80 Dementia in other diseases classified elsewhere, unspecified severity, without behavioral disturbance, psychotic disturbance, mood disturbance, and anxiety; F41.9 Anxiety disorder, unspecified; R40.2410 Glasgow coma scale score 13-15, unspecified time; Z86.73 Personal history of transient ischemic attack (TIA), and cerebral infarction without residual deficits; Z79.82 Long term (current) use of aspirin; Z79.899 Other long term (current) drug therapy; W22.8XXA Striking against or struck by other objects, initial encounter
CPT/HCPCS: 36415; 70450; 70486; 71045; 72125; 72170; 80053; 85025; 85610; 85730; 93041

== ENCOUNTER → 2021-04-28 | Outpatient (CLI) | payer MEDICARE, BC | END | disposition home or self-care (01) | LOC: PREOP 05:40 | PROVIDERS: ATTEND Surgery | DX: Z01.818 Encounter for other preprocedural examination (principal) ==

== ENCOUNTER → 2021-05-06 | Day surgery (SDC) | payer MEDICARE, BC ==
[~2021-05-06] VITALS: Ht 183 cm; Wt 97.0 kg
[~2021-05-06] MED LIST changes: +DOCU-163 PO; +LIDOCAINE 1% INJ 20 ML VIAL INJ ONE
--- NOTE | 2021-05-06 11:30 | Diagnostic Imaging Report ---
INDICATION: Left axillary mass. Interrogation of left axilla was performed. There is a large hypoechoic mass in the left axilla consistent with a pathologic lymph node. This measures 3.4 x 2.1 x 2.1 cm. This does show increased vascularity. No other masses are identified. IMPRESSION: Enlarged left axillary lymph node. Dictated by: Dictated on workstation # [id number]
--- NOTE | 2021-05-06 11:37 | Diagnostic Imaging Report ---
INDICATION: Enlarged left axillary lymph node. Patient presents for ultrasound-guided biopsy. Patient brought to the procedure room and placed on the table in the supine position. Ultrasound imaging of the left axilla was performed to evaluate appropriate entry site. Left axilla was then prepped and draped in usual sterile fashion. Small amount 1% lidocaine was utilized for local anesthesia. Total of 4 passes were made into the enlarged left axillary lymph node utilizing a 14-gauge Achieve needle. Core sampling was performed. Needle was removed and hemostasis was obtained. Patient tolerated to be well and left the department in stable condition. IMPRESSION: Successful ultrasound guided core biopsy of enlarged left axillary lymph node. Pathology results are currently pending. Dictated by: Dictated on workstation # [id number]
== END ==
LOC: RAD 10:15
PROVIDERS: ATTEND Internal Medicine Hematology & Oncology
DX: C43.59 Malignant melanoma of other part of trunk (principal); Z87.891 Personal history of nicotine dependence
CPT/HCPCS: 76881; 76942

== ENCOUNTER → 2021-05-10 | Outpatient (CLI) | payer MEDICARE, BC ==
[~2021-05-10] MED LIST changes: -DOCU-163 PO; +GADOTERATE 0.5 MMOL/ML (CLARISCAN) 20 ML VIAL IV ONE; -LIDOCAINE 1% INJ 20 ML VIAL INJ ONE
--- NOTE | 2021-05-10 11:03 | Diagnostic Imaging Report ---
CLINICAL INDICATION: Patient with malignant melanoma on back. EXAM: MRI of the brain performed without and with 20 cc of Clariscan IV contrast. Sequences include axial DWI, ADC map, coronal gradient echo, axial T2, axial FLAIR, axial T1, axial T1 post IV contrast, coronal T1 fat-sat post IV contrast, and sagittal T1 post IV contrast. COMPARISON: CT scan of the head, face, and cervical spine without contrast dated 04/01/2021. CT angiogram of the head/neck dated 03/28/2021. FINDINGS: There is a 5 mm subtle rounded area of enhancement involving the left side of the frederick. This area is not well visualized on the noncontrasted axial T1 sequence due to slice selection. There is a small area of increased T2 signal in the region as well. There are no other areas of intracranial enhancement. There is no acute cerebral infarct, intracranial hemorrhage, or hydrocephalus. There is no brain herniation or midline shift. There are multiple focal, patchy, and confluent areas of high T2 signal white matter changes involving both cerebral hemispheres and periventricular regions, likely representing chronic small vessel ischemic disease. There is brain parenchymal volume loss. Basal cisterns are unremarkable. The extracranial soft tissues and skull are unremarkable. There are post operative changes to both globes which may be related to lens implants. Otherwise, both globes are unremarkable. There is mild ethmoid sinus mucosal thickening involving the ethmoid sinus, sphenoid sinus, and both maxillary sinuses. The mastoid air cells show no significant abnormality. IMPRESSION: 1: There is a nonspecific 5 mm subtle area of enhancement involving the left side of the frederick with high T2 signal in the region. This was not visualized on the prior CT angiogram, possibly because it is a new lesion versus differences in modality. It is unknown if this represents a metastatic lesion versus other abnormality. Followup imaging should be performed with coronal and axial gradient echo thin cut sequences. Also, pre and post contrast 3D T1 would help better evaluate this area. 2: There is no other enhancing lesion seen. 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 Dictated by: Dictated on workstation # [id number]
--- NOTE | 2021-05-10 14:34 | Diagnostic Imaging Report ---
INDICATION: Malignant melanoma. TECHNIQUE: The serum blood glucose level at the time of injection was 123 mg/dL. The patient was administered 12.7 mCi of F18 FDG and PET imaging was performed. A noncontrast CT was also performed for attenuation correction and anatomic correlation. COMPARISON: No prior PET/CT study is available for comparison. FINDINGS: There is symmetric activity throughout the brain. The soft tissues of the neck are unremarkable. A hypermetabolic lymph node in the left axilla is noted with an SUV max of 7.7. This was recently biopsied. The right axilla is unremarkable. No mediastinal or hilar hypermetabolism is identified. No pulmonary parenchymal hypermetabolism is seen. There is physiologic activity throughout the GI and tracts of the abdomen and pelvis. No suspicious hypermetabolism is identified. The lower extremities are unremarkable. IMPRESSION: Solitary focus of hypermetabolism in the left axilla corresponding to the recently biopsied enlarged lymph node. Dictated by: Dictated on workstation # [id number]
== END ==
LOC: RAD 08:45
PROVIDERS: ATTEND Internal Medicine Hematology & Oncology
DX: C43.9 Malignant melanoma of skin, unspecified (principal); I67.81 Acute cerebrovascular insufficiency
CPT/HCPCS: 70553; 78816; A9552

== ENCOUNTER 2021-05-18 05:35 | Outpatient (CLI) | payer MEDICARE, BC ==
[~2021-05-18] VITALS: Ht 182.9 cm; Wt 97.0 kg
[~2021-05-18 05:35] MED LIST changes: -GADOTERATE 0.5 MMOL/ML (CLARISCAN) 20 ML VIAL IV ONE
[2021-05-18] MEDS ORDERED: DOCU-163 PO (09:56)
[2021-05-18] MEDS ORDERED: PROP60CA PO (09:57)
[2021-05-19] MEDS ORDERED: METF-397 PO (09:00)
== END 2021-05-18 10:02 | disposition home or self-care (01) ==
LOC: PREOP 05:35
PROVIDERS: ATTEND Surgery
DX: Z01.818 Encounter for other preprocedural examination (principal)

== ENCOUNTER 2021-05-19 07:28 | Day surgery (SDC) | payer MEDICARE, BC ==
[2021-05-19] VITALS (8 sets, daily range): BP systolic 150–202; BP diastolic 78–110
[~2021-05-19] VITALS: Ht 182.9 cm; Wt 98.0 kg
[~2021-05-19 07:28] MED LIST changes: +DOCU-163 PO
[2021-05-19] MEDS ORDERED: PROPOFOL INJECTION 50 ML IV ONE (07:53)
[2021-05-19] MEDS ORDERED: ceFAZolin 2 GM IV Premixed 50 ML IV ONE (08:00)
[2021-05-19] MEDS ORDERED: LACTATED RINGERS 1,000 ML IV PRN (08:00)
[2021-05-19] MEDS ORDERED: 0.9% SODIUM CHLORIDE PF INJ 20 ML VIAL ONE (08:07)
[2021-05-19] MEDS ORDERED: HEParin (CENTRAL IV FLUSH) 500 UNIT/5 ML SYR ONE (08:07)
[2021-05-19] MEDS ORDERED: LIDOCAINE/EPI 2% 1:100,00 (XYLOCAINE) 20 ML VIAL ONE (08:07)
--- NOTE | 2021-05-19 08:49 | Progress Note-Pre Operative ---
Pre-Operative Progress Note H&P Reviewed The H&P was reviewed, patient examined and no changes noted. Date Seen by Provider: May 19, 2021 Time Seen by Provider: 08:49 Date H&P Reviewed: May 19, 2021 Time H&P Reviewed: 08:49 Pre-Operative Diagnosis: melenanoma FADIA RIVAS DO May 19, 2021 08:49
[2021-05-19] MEDS ORDERED: METF-397 PO (09:00)
--- NOTE | 2021-05-19 09:32 | Anesthesia-General Post-Op ---
MAC Patient Condition Mental Status/LOC: Same as Preop Cardiovascular: Satisfactory Nausea/Vomiting: Absent Respiratory: Satisfactory Pain: Controlled Complications: Absent Post Op Complications Complications None Follow Up Care/Instructions Patient Instructions None needed. Anesthesiology Discharge Order Discharge Order Patient is doing well, no complaints, stable vital signs, no apparent adverse anesthesia problems. No complications reported per nursing. SIA JANG CRNA May 19, 2021 09:32
--- NOTE | 2021-05-19 09:32 | Progress Note-Post Operative ---
Post-Operative Progess Note Surgeon (s)/Dump Grounds Checker (s) Surgeon FADIA RIVAS DO Dump Grounds Checker: na Pre-Operative Diagnosis melanoma Post-Operative Diagnosis same Procedure & Operative Findings Date of Procedure 05/19/21 Procedure Performed/Findings PROCEDURE: Right internal jugular port placement using ultrasound guidance. COMPLICATIONS: None. INDICATIONS: The patient is a 86 year old male with metastatic melanoma. Patient understands the risks and benefits of port placement and wished to proceed with the procedure. Consent was signed on the chart. PROCEDURE: The patient was taken to the operating suite, was prepped and draped in the sterile fashion. A surgical pause was performed. Ultrasound was used to locate the internal jugular vein. Once located anesthetic was infiltrated above it. Using micro-access kit, the right internal vein was accessed. Dark nonpulsatile blood was withdrawn. The wire was inserted. Fluoroscopy assured proper placement. The needle was removed. The micro-access dilator was advanced over the wire and the wire was removed. The regular wire was inserted and fluoroscopy assured proper placement. The wire was then secured. Local anesthetic was used to anesthetize from the neck for tunneling down to the right chest and for pocket creation. A 15 blade scalpel was used to make an incision over the right chest. Cautery was used to dissect down to the pectoral fascia. A pocket was created with blunt dissection. The dilator sheath was then advanced over the wire under fluoroscopy and the dilator and wire were removed. The Groshong catheter was inserted through the sheath and the sheath was then removed. The Groshong wire was removed. The catheter was then tunneled to the right chest pocket. Fluoroscopy was used to cut to length and this was then attached to the port which was then placed within the pocket. The port was then accessed without difficulty. It was then flushed with saline and then heparin. The subcutaneous tissues were then reapproximated using 3-0 Vicryl. The areas were then washed and dried. Skin Affix was placed over incision. The insertion point of the neck Skin Affix was placed over the incision. The patient tolerated the procedure well without complication and was taken to recovery room in stable condition. Chest x-ray is pending. Anesthesia Type mac c local Estimated Blood Loss Estimated blood loss (mL): minimal Specimens/Packing Specimens Removed FADIA Aggarwal DO May 19, 2021 09:32
--- NOTE | 2021-05-19 09:44 | Discharge Inst-Simple/Standard ---
Discharge Inst-Standard Patient Instructions/Follow Up Plan of Care/Instructions/FU: 2 weeks [place] Activity as Tolerated: No Discharge Diet: Regular Diet Other Inst to Patient Follow up Appt: Make appointment for 2 week. Instructions: No lifting greater than 10 pounds. No strenuous activity. May shower in 24 hours, no tub bath or soaking. Use incentive spirometer at home as directed. No Smoking Skin/Wound Care: You have special glue over your incision that will fall off on it's own. Symptoms to Report: Appetite Changes, Extremity Discoloration, Numbness/Tingling, Swelling Increased, Bleeding Excessive, Eyesight Changes, Pain Increased, Urine Color Change, Constipation(Persistent), Fever over 101 degree F, Pain/Pressure in chest, Urinating Difficulty, Cough Up/Vomit Blood, Heart Beat Irreg/Pounding, Pain/Pressure in jaw, Vaginal Bleeding Increase, Cramps in feet or legs, Lightheadedness, Pain/Pressure in shoulder, Diarrhea(Persistent), Memory Changes Suddenly, Questions/Concerns, Weight gain consecutive days, Dizziness/Fainting, Nausea/Vomiting, Shortness of Breath, Weight gain over 2 pounds If questions or concerns contact your physician Or seek help at emergency department. FADIA RIVAS DO May 19, 2021 09:44
--- NOTE | 2021-05-19 10:45 | Diagnostic Imaging Report ---
HISTORY: Post Port-A-Cath placement. COMPARISON: 04/01/2021. TECHNIQUE: Frontal view of the chest. FINDINGS: The right Port-A-Cath tip projects over the upper SVC. No consolidation is seen. There is no pleural effusion or pneumothorax. The cardiac silhouette is stable in size. Sternotomy wires and post-CABG changes are noted. IMPRESSION: 1. Right Port-A-Cath placement with the tip at the upper SVC. Dictated by: Dictated on workstation # [id number]
--- NOTE | 2021-05-19 11:05 | Diagnostic Imaging Report ---
INDICATION: Fluoroscopy for Groshong catheter placement. Fluoroscopy was provided in the OR during Groshong catheter placement. 21 seconds of fluoroscopic time were utilized. A single image was obtained demonstrating a right chest wall port with tip overlying the SVC. IMPRESSION: Fluoroscopy during port placement. Dictated by: Dictated on workstation # [id number]
== END 2021-05-19 11:43 | disposition home or self-care (01) ==
LOC: SDC 07:28
PROVIDERS: ATTEND Surgery
DX: C43.59 Malignant melanoma of other part of trunk (principal); I87.2 Venous insufficiency (chronic) (peripheral); C79.9 Secondary malignant neoplasm of unspecified site; E11.9 Type 2 diabetes mellitus without complications; Z79.84 Long term (current) use of oral hypoglycemic drugs; Z87.891 Personal history of nicotine dependence
CPT/HCPCS: 36561; 71045; 76000; 82947; 87081; C1788

== ENCOUNTER → 2021-05-20 | Outpatient (CLI) | payer MEDICARE, BC ==
[~2021-05-20] MED LIST changes: +GADOTERATE 0.5 MMOL/ML (CLARISCAN) 20 ML VIAL IV ONE; +METF-397 PO
--- NOTE | 2021-05-20 11:59 | Diagnostic Imaging Report ---
PROCEDURE: MR imaging of the brain with and without contrast. TECHNIQUE: Multiplanar, multisequence MR imaging of the brain was performed with and without contrast. INDICATION: History of malignant melanoma. Follow-up enhancing lesion in the left side of the frederick. Further characterization. COMPARISON: 05/10/2021. FINDINGS: A T1 hypointense, T2 hyperintense, faintly enhancing lesion is seen in the central frederick left of midline measuring 0.4 x 0.4 cm and 0.5 cm craniocaudal. No associated edema or mass effect is seen with this lesion. No acute ischemia or hemorrhage. The ventricles and cortical sulci are prominent. The basilar cisterns are symmetric and unremarkable. The sellar and suprasellar regions have a normal appearance. The paranasal sinuses and mastoid air cells demonstrate normal signal characteristics. The globes and orbits are symmetric and unremarkable. The scalp and calvarium have a normal appearance. IMPRESSION: 1. Again seen is the small faintly enhancing lesion within the central frederick left of midline. 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 However, given the patient history of malignant melanoma, a metastatic lesion is not excluded. Recommend short interval follow-up with brain MRI with and without contrast in 3-6 months to ensure stability. 2. No other abnormal enhancement is seen in the brain. No acute ischemia or hemorrhage. 3. Generalized parenchymal volume loss. Dictated by: Dictated on workstation # [id number]
== END ==
LOC: RAD 09:30
PROVIDERS: ATTEND Internal Medicine Hematology & Oncology
DX: R93.89 Abnormal findings on diagnostic imaging of other specified body structures (principal); Z85.820 Personal history of malignant melanoma of skin
CPT/HCPCS: 70553

== ENCOUNTER 2021-05-26 11:00 | Outpatient (RCR) | payer MEDICARE, BC ==
[~2021-05-26] VITALS: Ht 182.9 cm; Wt 98.0 kg
[~2021-05-26 11:00] MED LIST changes: -GADOTERATE 0.5 MMOL/ML (CLARISCAN) 20 ML VIAL IV ONE; +NS IV 500 ML (CANCER CENTER) IV SCH; +NS IV SCH; +PEMBROLIZUMAB IV SCH
== END 2021-05-27 | disposition home or self-care (01) ==
LOC: ONC 11:00
PROVIDERS: ATTEND Internal Medicine Hematology & Oncology
DX: C43.9 Malignant melanoma of skin, unspecified (principal); I10 Essential (primary) hypertension; I25.10 Atherosclerotic heart disease of native coronary artery without angina pectoris; E11.9 Type 2 diabetes mellitus without complications; E78.5 Hyperlipidemia, unspecified; E66.9 Obesity, unspecified
CPT/HCPCS: 99213; 99214

== ENCOUNTER 2021-06-19 21:41 | Inpatient (IN) | payer MEDICARE, BC ==
[~2021-06-19] VITALS: Ht 182.9 cm; Wt 98.7 kg
[~2021-06-19 21:41] MED LIST changes: -NS IV 500 ML (CANCER CENTER) IV SCH; -NS IV SCH; -PEMBROLIZUMAB IV SCH
[2021-06-19 22:29] LABS: BASOPHILS % (AUTO) 1 % (0-10); EOSINOPHILS # (AUTO) 0.1 10^3/uL (0.0-0.3); EOSINOPHILS % (AUTO) 2 % (0-10); HEMATOCRIT 38 % (40-54); HEMOGLOBIN 12.8 g/dL (13.3-17.7); LYMPHOCYTES # (AUTO) 1.9 10^3/uL (1.0-4.0); LYMPHOCYTES % (AUTO) 31 % (12-44); MEAN CORPUSCULAR HEMOGLOBIN 31 pg (25-34); MEAN CORPUSCULAR HGB CONC 33 g/dL (32-36); MEAN CORPUSCULAR VOLUME 92 fL (80-99); MEAN PLATELET VOLUME 10.4 fL (9.0-12.2); MONOCYTES % (AUTO) 16 % (0-12); NEUTROPHILS % (AUTO) 49 % (42-75); PLATELET COUNT 150 10^3/uL (130-400); WHITE BLOOD COUNT 6.1 10^3/uL (4.3-11.0)
[2021-06-19 22:35] LABS: ALBUMIN 3.8 GM/DL (3.2-4.5); CHLORIDE 99 MMOL/L (98-107); POTASSIUM 3.9 MMOL/L (3.6-5.0); SODIUM 136 MMOL/L (135-145)
[2021-06-19 22:36] LABS: CALCIUM 9.2 MG/DL (8.5-10.1)
[2021-06-19 22:37] LABS: GLUCOSE 103 MG/DL (70-105)
[2021-06-19 22:38] LABS: FIBRIN DEGRADATION PRODUCTS 1.46 UG/ML (0.00-0.49); PROTHROMBIN TIME PATIENT 13.7 SEC (12.2-14.7); TOTAL PROTEIN 6.4 GM/DL (6.4-8.2)
[2021-06-19 22:39] LABS: BILIRUBIN,TOTAL 0.4 MG/DL (0.1-1.0); CARBON DIOXIDE 24 MMOL/L (21-32)
[2021-06-19 22:41] LABS: ALKALINE PHOSPHATASE 48 U/L (40-136); CREATININE SERUM 0.87 MG/DL (0.60-1.30); GFR ESTIMATED 83
[2021-06-19 22:42] LABS: BUN/CREATININE RATIO 13
[2021-06-19 22:44] LABS: ALANINE AMINOTRANSFERASE 18 U/L (0-55); MAGNESIUM 1.8 MG/DL (1.6-2.4)
[2021-06-19 22:45] LABS: CREATINE KINASE 31 U/L (30-200)
[2021-06-19 22:45] LABS: BILIRUBIN,URINE NEGATIVE (NEGATIVE); CLARITY,URINE CLEAR; COLOR,URINE YELLOW; GLUCOSE, URINE (UA) NEGATIVE (NEGATIVE); KETONES,URINE NEGATIVE (NEGATIVE); LEUKOCYTE ESTERASE ,URINE NEGATIVE (NEGATIVE); NITRITE,URINE NEGATIVE (NEGATIVE); PROTEIN,URINE NEGATIVE (NEGATIVE)
--- NOTE | 2021-06-19 22:49 | Diagnostic Imaging Report ---
EXAMINATION: Chest radiograph, portable AP view. DATE: 06/19/2021 10:41 PM INDICATION: 86-year-old male, stroke. Speech difficulties. COMPARISON: May 19, 2021. FINDINGS: There is a right-sided port catheter with tip overlying the upper SVC. There are median sternotomy wires. Heart size and mediastinal contours are unchanged. There is no identified pneumothorax. There is no large pleural effusion. There is no identified focal airspace consolidation. IMPRESSION: No identified acute cardiopulmonary abnormality. Dictated by: Dictated on workstation # [id number]
[2021-06-19 22:51] LABS: CREATINE KINASE MB 0.6 NG/ML (<6.6)
[2021-06-19 22:52] LABS: BACTERIA,URINE NEGATIVE /HPF
--- NOTE | 2021-06-19 22:52 | Diagnostic Imaging Report ---
PROCEDURE: CT head w/o r/o stroke. TECHNIQUE: Multiple contiguous axial images were obtained through the brain without the use of intravenous contrast. Auto Exposure Controls were utilized during the CT exam to meet ALARA standards for radiation dose reduction. DATE: June 19, 2021. COMPARISON: MRI brain May 20, 2021. CT head April 01, 2021. INDICATION: 86-year-old male, concern for stroke. Speech difficulties. FINDINGS: There is proportional prominence of the ventricles and additional CSF spaces consistent with moderate cerebral volume loss. There is no mass effect or midline shift. There is no acute intracranial hemorrhage. There is no abnormal extra-axial fluid collection. The visualized portions of the paranasal sinuses, mastoid air cells and middle ears are well aerated. IMPRESSION: 1. No identified acute intracranial abnormality. 2. Moderate cerebral volume loss. Findings called at 2246 hours on June 19, 2021. Dictated by: Dictated on workstation # [id number]
[2021-06-19] MEDS ORDERED: hydrALAZINE (APESOLINE) 20 MG/ML VIAL IV ONE (23:00)
[2021-06-19] MEDS ORDERED: CATHETER FLUSH 10 ML SYR IV PRN (23:30)
[2021-06-19] MEDS ORDERED: NS 100 ML (IVPB) BAG IV ONE (23:30)
[2021-06-19] MEDS ORDERED: IOHEXOL 350 MG/ML 100 ML (OMNIPAQUE 350) VIAL IV ONE (23:30)
--- NOTE | 2021-06-19 23:39 | ED General ---
General Chief Complaint: Neuro-Stroke Like Symptoms Stated Complaint: ELEVATED BP Nursing Triage Note: c/o difficulty collecting thoughts, slow speech, high blood pressure since 2049 Source of Information: Patient, Old Records (ALL PMH IS FROM OLD RECORDS), Spouse ( IS EXTREMELY ANXIOUS) Exam Limitations: Other (PT AND ARE BOTH LMITED HISTORIANS) History of Present Illness Date Seen by Provider: Jun 19, 2021 Time Seen by Provider: 22:08 Initial Comments PT ARRIVES VIA POV FROM HOME WITH C/O ELEVATED BLOOD PRESSURE TONIGHT AROUND 2049, NOTICED THAT HE WAS HAVING DIFFICULTY SAYING WHAT HE WANTED TO SAY AND "FELT FUNNY IN THE HEAD" , SO SHE STARTED CHECKING HIS BLOOD PRESSURE EVERY 5 MINUTES 184/83, THEN GOT UP TO 212/90 PT DENIES HEADACHE DENIES DIZZINESS DENIES VISION CHANGES DENIES PARESTHESIAS OR MOTOR DEFICITS STATES IS ALWAYS UNSTEADY ON HIS FEET AND IS NOT ANY DIFFERENT THAN NORMAL PT STATES HE ALSO HAS A TREMOR THAT HE STATES IS NORMAL AND NO DIFFERENT TONIGHT NO CHEST PAIN NO SHORTNESS OF BREATH NO PALPITATIONS OR SYNCOPE NO NAUSEA/VOMITING PT HAS HISTORY OF CAD WITH CABG, AND HISTORY OF TIA'S--SAW DR. LEGER THIS PAST WEEK FOR ROUTINE FOLLOW UP. WAS NOT HAVING ANY PROBLEMS AND NO MEDICATION CHANGES PT WAS RECENTLY DX WITH MELANOMA WITH METS TO AXILLARY LYMPH NODE AND AN ABNORMAL AREA ON BRAIN MRI IN APRIL -- AND STARTED CHEMO LAST WEEK--RECENTLY HAD A PORT PLACED IN RIGHT CHEST WELL PT AND DO NOT KNOW ANY OF HIS MEDICATIONS AND DID NOT BRING A LIST OF MEDICATIONS, BUT PT HAS HAD HIS EVENING MEDICATIONS JUST PRIOR TO ARRIVAL ON REVIEW OF OLD RECORDS, PT HAS DEMENTIA AND PARKINSON'S. HE ALSO HAS HISTORY OF HYPERTENSIVE ENCEPHALOPATHY AND HAS HAD MULTIPLE ADMITS FOR THIS PROBLEM. PT WAS RESIDING AT [facility], THEN WAS ADMITTED TO [facility] 03/31/21. PT IS NOW LIVING AT HOME WITH . PCP: DR. OMRENO ANIMAL HUSBANDMAN: DR. LEGER ONCOLOGY: DR. SEGURA Allergies and Home Medications Allergies Coded Allergies: hydrocodone (Unverified Allergy, Mild, 03/22/07) amlodipine (Unverified Allergy, Unknown, 10/25/13) benazepril (Unverified Allergy, Unknown, 10/25/13) carbidopa (Unverified Allergy, Unknown, 05/18/21) codeine (Verified Allergy, Unknown, 09/02/05) levodopa (Unverified Allergy, Unknown, 05/18/21) telmisartan (Unverified Allergy, Unknown, 10/25/13) Patient Home Medication List Home Medication List Reviewed: Yes Alprazolam (Xanax) 0.25 Mg Tablet, 0.25 MG PO Q6H PRN for ANXIETY Prescribed by: JOSH MORENO on 03/31/21 09 Aspirin (Aspirin EC) 81 Mg Tablet.dr, 81 MG PO HS Prescribed by: JOSH MORENO on 03/31/21928 Docusate Sodium (Dulcolax Stool Softener) 100 Mg Capsule, 100 MG PO UD, (Reported) Entered as Reported by: ANA VENTURA on 05/18/21 09 Doxazosin Mesylate (Doxazosin Mesylate) 4 Mg Tablet, 8 MG PO HS Prescribed by: JOSH MORENO on 03/31/21928 Hydralazine HCl (Hydralazine HCl) 50 Mg Tablet, 50 MG PO TID Prescribed by: JOSH MORENO on 03/31/21928 Losartan Potassium (Losartan Potassium) 50 Mg Tablet, 50 MG PO DAILY Prescribed by: JOSH MORENO on 03/31/21928 Metformin HCl (Metformin HCl) 500 Mg Tablet, 500 MG PO BIDAC, (Reported) Entered as Reported by: PASCUAL PEREZ on 05/19/21 09 Pantoprazole Sodium (Pantoprazole Sodium) 40 Mg Tablet.dr, 40 MG PO BIDAC Prescribed by: JOSH MORENO on 03/31/21928 Propranolol HCl (Propranolol HCl ER) 60 Mg Cap.sa.24h, 60 MG PO BID Prescribed by: ANA VENTURA on 05/18/21 09 Trazodone HCl (Trazodone HCl) 50 Mg Tablet, 50 MG PO HS PRN for ANXIETY Prescribed by: JOSH MORENO on 03/31/21928 Ubidecarenone (Co Q-10) 100 Mg Capsule, 100 MG PO DAILY Prescribed by: JOSH MORENO on 03/31/21928 Review of Systems Review of Systems Constitutional: see HPI EENTM: no symptoms reported Respiratory: no symptoms reported Cardiovascular: see HPI; No chest pain; edema (NO CHANGE IN CHRONIC LEG SWELLING); No palpitations, No syncope; vascular heart diseas Gastrointestinal: no symptoms reported Genitourinary: no symptoms reported Musculoskeletal: no symptoms reported Skin: no symptoms reported Psychiatric/Neurological: See HPI; Denies Headache, Denies Numbness, Denies Paresthesia, Denies Seizure, Denies Tingling; Tremors; Denies Weakness Hematologic/Lymphatic: No Symptoms Reported Immunological/Allergic: no symptoms reported Past Afkjdib-Rdtbyg-Pvpmla Hx Patient Social History Tobacco Use?: No Substance use?: No Alcohol Use?: No Immunizations Up To Date First/Initial COVID19 Vaccinat: FEB 2020 Second COVID19 Vaccination Jose: APRIL 2020 Third COVID19 Vaccination Date: NOV 2020 Seasonal Allergies Seasonal Allergies: No Past Medical History Surgery/Hospitalization HX: hernia x3, bilat cea, turp, ortho, niddm, htn, high lipids, TIA, DELERIUM, GERD, CAD, PARKINSONS, ANXIETY, PVD Surgeries: Yes (MENISCUS REPAIR, TURP, HERNIA X3, bilateral ENDARTERECTOMY,2005) Abdominal, Cardiac, CABG, Orthopedic, Transurethral Resection, Vascular Surgery Respiratory: No Currently Using CPAP: No Currently Using BIPAP: No Cardiac: Yes (CABG X3 VESSELS;BILAT CAROTID ENDARTERECTOMY; RBBB) Chronic Edema/Swelling, Coronary Artery Disease, High Cholesterol, Hypertension, Peripheral Vascular Neurological: Yes (HYPERTENSIVE ENCEPHALOPATHY, ESSENTIAL TREMORS UPPER EXTREMITIES) Dementia, Parkinson's Disease, TIA Reproductive Disorders: No Sexually Transmitted Disease: No Genitourinary: Yes Benign Prostatic Hyperpl, Prostate Problems Gastrointestinal: Yes Abdominal Hernia, Gastroesophageal Reflux, Chronic Constipation Musculoskeletal: Yes (KNEE SURGERY; GENERALIZED WEAKNESS; FALLS; ) Arthritis Endocrine: Yes Diabetes, Non-Insulin dep HEENT: Yes Hearing Impairment: Hard of Hearing, Hearing Aide Right Cancer: Yes Skin, Melanoma Did You Recieve Any Treatments: Yes METASTATIC MELANOMA DX , HAD SIMPLE EXCISION AND STARTED CHEMO 05/2021 Psychosocial: Yes Sleep Difficulties, Anxiety Integumentary: Yes (MELANOMA ON BACK) Blood Disorders: No Family Medical History Heart Disease, Hypertension SOCIAL HISTORY: -NO SMOKING -RARE ALCOHOL USE -NO DRUG USE PAST SURGICAL HISTORY: -HERNIA REPAIR X 3 -TURP -KNEE SURGERY FOR TORN MENISCUS -BILATERAL CAROTID ENDARTERECTOMY 2005 -3-VESSEL CABG -REMOVAL OF MELANOMA OF BACK WITH LYMPH NODE BIOPSY RIGHT AXILLA 04/2021 -PORT RIGHT CHEST 04/2021 ADDITONAL PMH: -MULTIPLE EPISODES OF 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 -FREQUENT EPISODES OF DELIRIUM/INCREASED CONFUSION, HALLUCINATIONS, SPEECH ABNORMALITIES -MULTIFACTORIAL DUE TO DEMENTIA AND "SUNDOWNER'S", PARKINSON'S, HYPERTENSIVE ENCEPHALOPATHY -HAS HAD PROGRESSIVE GENERALIZED WEAKNESS AND INABILTIY TO DO ADL'S INCLUDING BEING UNABLE TO FEED HIMSELF Physical Exam Vital Signs Vital Signs - First Documented 06/19/21 22:02 Temp 36.5 Pulse 66 Resp 19 B/P (MAP) 228/106 (146) Pulse Ox 96 O2 Delivery Room Air Capillary Refill : Less Than 3 Seconds Height, Weight, BMI Height: 6'0.00" Weight: 230lbs. 0.0oz. [id number]; 28.00 BMI Method: General Appearance: No Apparent Distress, WD/WN, Other (FLAT AFFECT. DOES NOT APPEAR ILL OR TO BE IN ANY DISCOMFORT OR DISTRESS. ) HEENT: PERRL/EOMI Neck: Normal Inspection, Carotid Bruit (ON RIGHT); No JVD Respiratory: Normal Breath Sounds, No Accessory Muscle Use, No Respiratory Dist ress Cardiovascular: Regular Rate, Rhythm, No Murmur Gastrointestinal: Non Tender, Soft Extremity: Normal Capillary Refill, Pedal Edema (2+ BILATERALLY. ) Neurologic/Psychiatric: Alert, Oriented x3, No Motor/Sensory Deficits, Normal Mood/Affect, rn outpatient surgery II-XII Norm as Tested, Other (GROSS TREMOR OF ARMS IS PRESENT--PT STATES IS NORMAL. NO FOCAL DEFICIT NOTED. NIH 0. HAS DIFFUSE GENERALIZED WEAKNESS, BUT NO FOCAL WEAKNESS. HAS SLIGHT DELAY IN SPEECH AND DIFFICULTY COMPLETING THOUGHTS. SPEECH IS CLEAR AND PT IS NOT CONFUSED. HE DOES HAVE SOME MILD/CHRONIC POOR MEMORY--THIS IS UNCHANGED FROM NORMAL BASELINE. ) Skin: Normal Color, Warm/Dry Progress/Results/Core Measures Suspected Sepsis SIRS Temperature: Pulse: 66 Respiratory Rate: 19 Laboratory Tests 06/19/21 22:10: White Blood Count 6.1 Blood Pressure 228 /106 Mean: 146 Laboratory Tests 06/19/21 22:10: Creatinine 0.87, INR Comment 1.0, Platelet Count 150, Total Bilirubin 0.4 Results/Orders Lab Results Laboratory Tests Test 06/19/21 22:10 06/19/21 22:25 06/19/21 22:30 Range/Units White Blood Count 6.1 4.3-11.0 10^3/uL Red Blood Count 4.15 L 4.30-5.52 10^6/uL Hemoglobin 12.8 L 13.3-17.7 g/dL Hematocrit 38 L 40-54 % Mean Corpuscular Volume 92 80-99 fL Mean Corpuscular Hemoglobin 31 25-34 pg Mean Corpuscular Hemoglobin Concent 33 32-36 g/dL Red Cell Distribution Width 13.1 10.0-14.5 % Platelet Count 150 130-400 10^3/uL Mean Platelet Volume 10.4 9.0-12.2 fL Immature Granulocyte % (Auto) 0 % Neutrophils (%) (Auto) 49 42-75 % Lymphocytes (%) (Auto) 31 12-44 % Monocytes (%) (Auto) 16 H 0-12 % Eosinophils (%) (Auto) 2 0-10 % Basophils (%) (Auto) 1 0-10 % Neutrophils # (Auto) 3.0 1.8-7.8 10^3/uL Lymphocytes # (Auto) 1.9 1.0-4.0 10^3/uL Monocytes # (Auto) 1.0 0.0-1.0 10^3/uL Eosinophils # (Auto) 0.1 0.0-0.3 10^3/uL Basophils # (Auto) 0.0 0.0-0.1 10^3/uL Immature Granulocyte # (Auto) 0.0 0.0-0.1 10^3/uL Prothrombin Time 13.7 12.2-14.7 SEC INR Comment 1.0 0.8-1.4 Activated Partial Thromboplast Time 28 24-35 SEC D-Dimer 1.46 H 0.00-0.49 UG/ML Sodium Level 136 135-145 MMOL/L Potassium Level 3.9 3.6-5.0 MMOL/L Chloride Level 99 98-107 MMOL/L Carbon Dioxide Level 24 21-32 MMOL/L Anion Gap 13 5-14 MMOL/L Blood Urea Nitrogen 11 7-18 MG/DL Creatinine 0.87 0.60-1.30 MG/DL Estimat Glomerular Filtration Rate 83 BUN/Creatinine Ratio 13 Glucose Level 103 70-105 MG/DL Calcium Level 9.2 8.5-10.1 MG/DL Corrected Calcium 9.4 8.5-10.1 MG/DL Magnesium Level 1.8 1.6-2.4 MG/DL Total Bilirubin 0.4 0.1-1.0 MG/DL Aspartate Amino Transf (AST/SGOT) 18 5-34 U/L Alanine Aminotransferase (ALT/SGPT) 18 0-55 U/L Alkaline Phosphatase 48 40-136 U/L Total Creatine Kinase 31 30-200 U/L Creatine Kinase MB 0.6 <6.6 NG/ML Troponin I < 0.028 <0.028 NG/ML B-Type Natriuretic Peptide 47.3 <100.0 PG/ML Total Protein 6.4 6.4-8.2 GM/DL Albumin 3.8 3.2-4.5 GM/DL Glucometer 95 70-110 MG/DL Urine Color YELLOW Urine Clarity CLEAR Urine pH 8.0 5-9 Urine Specific Cuervo 1.010 L 1.016-1.022 Urine Protein NEGATIVE NEGATIVE Urine Glucose (UA) NEGATIVE NEGATIVE Urine Ketones NEGATIVE NEGATIVE Urine Nitrite NEGATIVE NEGATIVE Urine Bilirubin NEGATIVE NEGATIVE Urine Urobilinogen 0.2 < = 1.0 MG/DL Urine Leukocyte Esterase NEGATIVE NEGATIVE Urine RBC (Auto) NEGATIVE NEGATIVE Urine RBC NONE /HPF Urine WBC NONE /HPF Urine Crystals NONE /LPF Urine Bacteria NEGATIVE /HPF Urine Casts NONE /LPF Urine Mucus NEGATIVE /LPF Urine Culture Indicated NO My Orders Orders - KYLEE VALERIO DO Ed Iv/Invasive Line Start (06/19/21 22:09) Ekg Tracing (06/19/21 22:09) O2 (06/19/21 22:09) Monitor-Rhythm Ecg Trace Only (06/19/21 22:) Bnp Crane (06/19/21:) Cbc With Automated Diff (06/19/21 22:) Comprehensive Metabolic Panel (06/19/21:09) Creatine Kinase (06/19/21 22:) Creatine Kinase Mb (06/19/21 22:09) Magnesium (06/19/21:) Protime With Inr (06/19/21:) Partial Thromboplastin Time (06/19/21 22:) Troponin I Jose (06/19/21 22:09) Ct Head Wo-R/O Stroke (06/19/21 22:09) Fibrin Degradation Products (06/19/21:18) Ua Culture If Indicated (06/19/21 22:18) Chest 1 View, Ap/Pa Only (06/19/21 22:18) Catheter(Urinary) Insert & Ass 03,15 (06/19/21 22:18) Accucheck Stat ONCE (06/19/21 22:18) Vital Signs Stroke Patient Q15M (06/19/21 22:18) Intake & Output 06,14,22 (06/19/21 22:18) Dysphagia Screening Tool Q10MX1 (06/19/21 22:18) Lipid Panel (06/20/21 06:00) Ct Angio Head/Neck (06/19/21 22:48) Hydralazine Injection (Apresoline Inject (06/19/21 23:00) Iohexol Injection (Omnipaque 350 Mg/Ml 1 (06/19/21 23:30) Sodium Chloride Flush (Catheter Flush Sy (06/19/21 23:30) Ns (Ivpb) (Sodium Chloride 0.9% Ivpb Bag (06/19/21 23:30) Medications Given in ED Current Medications Medications Dose Ordered Sig/Les Route Start Time Stop Time Status Last Admin Dose Admin Hydralazine HCl 10 mg ONCE ONCE IV 06/19/21 23:00 06/19/21 23:02 DC 06/19/21 22:56 10 MG Iohexol 100 ml ONCE ONCE IV 06/19/21 23:30 06/19/21 23:31 DC 06/19/21 23:23 75 ML Sodium Chloride 10 ml NEEDED PRN IV 06/19/21 23:30 06/20/21 00:57 DC 06/19/21 23:23 10 ML Sodium Chloride 100 ml ONCE ONCE IV 06/19/21 23:30 06/19/21 23:31 DC 06/19/21 23:23 80 ML Vital Signs/I&O 06/19/21 22:02 Temp 36.5 Pulse 66 Resp 19 B/P (MAP) 228/106 (146) Pulse Ox 96 O2 Delivery Room Air Capillary Refill : Less Than 3 Seconds Blood Pressure Mean: 146 Point of Care Testing Finger Stick Blood Glucose: 95 Progress Note : Progress Note STROKE ACTIVATION DONE ON RETURN FROM INITIAL CT, PT HAS IMPROVEMENT IN SYMPTOMS--SPEECH IS NOT DELAYED AND PT IS ABLE TO COMPLETE THOUGHTS AND IS BACK TO NORMAL BASELINE. BP [address], SO HYDRALAZINE ORDERED, PT'S HEART RATE IS 60-62 BP DOWN TO 160'S/70'S AT TIME OF ADMIT. REPORTS THAT PT'S BP AT DR. LEGER'S OFFICE THIS WEEK WAS 160'S/70'S EXTREMELY ANXIOUS THROUGHOUT PT'S STAY AND WRITING ALL VITALS AND ALL ACTIONS, TEST RESULTS, ETC. IN A NOTEBOOK FOR ENTIRE ER STAY ECG Initial ECG Impression Date: Jun 19, 2021 Initial ECG Impression Time: 22:14 Initial ECG Rate: 62 Initial ECG Rhythm: Normal Sinus (RBBB) Initial ECG Comparisson: Unchanged Diagnostic Imaging Comments CXR--PER RADIOLOGIST REPORT FINDINGS: There is a right-sided port catheter with tip overlying the upper SVC. There are median sternotomy wires. Heart size and mediastinal contours are unchanged. There is no identified pneumothorax. There is no large pleural effusion. There is no identified focal airspace consolidation. IMPRESSION: No identified acute cardiopulmonary abnormality. CT HEAD--NO ACUTE PROCESS PER RADIOLOGIST VIA PHONE AT 0261 FINDINGS: There is proportional prominence of the ventricles and additional CSF spaces consistent with moderate cerebral volume loss. There is no mass effect or midline shift. There is no acute intracranial hemorrhage. There is no abnormal extra-axial fluid collection. The visualized portions of the paranasal sinuses, mastoid air cells and middle ears are well aerated. IMPRESSION: 1. No identified acute intracranial abnormality. 2. Moderate cerebral volume loss. CT ANGIOGRAM HEAD/NECK--PER [facility] RADIOLOGIST VIA PHONE AT 5000 NO ACUTE PROCESS, STABLE/UNCHANGED FROM PREVIOUS. NO OCCLUSION OR SIGNIFICANT STENOSIS Reviewed: Reviewed by Me, Discussed w/Radiologist Departure Communication (Admissions) 2351--SPOKE WITH DR. REED, ACCEPTS PT FOR ADMIT. Impression Primary Impression: Hypertensive encephalopathy Additional Impressions: T2DM (type 2 diabetes mellitus) Dementia Parkinson disease RECENT DX OF MELANOMA HX OF CAD WITH CABG Disposition: ADMITTED INPATIENT Condition: Improved Admissions Decision to Admit Reason: Admit from ER (General) Decision to Admit/Date: Jun 19, 2021 Time/Decision to Admit Time: 23:55 Departure-Patient Inst. Referrals: JOSH MORENO MD (PCP/Family) Primary Care Physician KYLEE VALERIO DO Jun 19, 2021 23:39
[2021-06-20] VITALS (17 sets, daily range): BP systolic 101–176; BP diastolic 52–93
[2021-06-20] MEDS ORDERED: hydrALAZINE (APESOLINE) 20 MG/ML VIAL IV PRN (01:00)
--- NOTE | 2021-06-20 01:09 | Tele-ICU Progress Note ---
Progress Note 86M with melanoma s/p initiation of chemo last week, port placement, CAD s/p CABG, b/l CEA, PVD, DM, dementia, parkinson's, TIA and HTN with multiple admits for hypertensive encephalopathy who is currently admitted with the same. Reportedly felt "funny in the head" prompting to monitor BP every 5 minutes. Got as high as 212/90. Initially called as a stroke alert with negativework up so far. - hypertensive emergency: currently 169/93. OK to normalize given the documented acquity allowing for more aggressive reversal. - encephalopathy: Completely resolved - DM: ISS Patient admitted to cardiac step down. TeleICU remains available for support. Please call with any additional questions or concerns. Focused Exam Height, Weight, BMI Height: 6'0.00" Weight: 230lbs. 0.0oz. [id number]; 29.50 BMI Method: NEIL CARTER MD Jun 20, 2021 01:09
[2021-06-20] MEDS ORDERED: POTA10TA37 PO (04:21)
[2021-06-20] MEDS ORDERED: QUET25TA35 PO (04:21)
[2021-06-20] MEDS ORDERED: FURO20TA4 PO (04:21)
[2021-06-20 05:30] LABS: BASOPHILS # (AUTO) 0.1 10^3/uL (0.0-0.1); BASOPHILS % (AUTO) 1 % (0-10); EOSINOPHILS # (AUTO) 0.1 10^3/uL (0.0-0.3); EOSINOPHILS % (AUTO) 2 % (0-10); HEMATOCRIT 39 % (40-54); HEMOGLOBIN 13.1 g/dL (13.3-17.7); LYMPHOCYTES # (AUTO) 1.9 10^3/uL (1.0-4.0); LYMPHOCYTES % (AUTO) 26 % (12-44); MEAN CORPUSCULAR HEMOGLOBIN 31 pg (25-34); MEAN CORPUSCULAR HGB CONC 34 g/dL (32-36); MEAN CORPUSCULAR VOLUME 92 fL (80-99); MEAN PLATELET VOLUME 10.8 fL (9.0-12.2); MONOCYTES # (AUTO) 1.1 10^3/uL (0.0-1.0); MONOCYTES % (AUTO) 15 % (0-12); NEUTROPHILS % (AUTO) 56 % (42-75); PLATELET COUNT 157 10^3/uL (130-400); WHITE BLOOD COUNT 7.2 10^3/uL (4.3-11.0)
[2021-06-20 05:44] LABS: POTASSIUM 3.9 MMOL/L (3.6-5.0)
[2021-06-20 05:45] LABS: CALCIUM 9.1 MG/DL (8.5-10.1)
[2021-06-20 05:50] LABS: CREATININE SERUM 0.8 MG/DL (0.60-1.30)
--- NOTE | 2021-06-20 06:13 | Diagnostic Imaging Report ---
PROCEDURE: CT angiography of the head and CT angiography of the neck with and without contrast. TECHNIQUE: Contiguous noncontrast images were obtained from the skull base through the vertex. After intravenous contrast administration, helical CT angiography of the neck was performed. Source data was reformatted into 3D MIP projections. Delayed post contrast acquisition was also obtained. Auto Exposure Controls were utilized during the CT exam to meet ALARA standards for radiation dose reduction. INDICATION: Elevated blood pressure and stroke like symptoms. Comparison is made with noncontrast head CT performed earlier the same day. There is a three-vessel branching pattern to the aortic arch. Both the right and left common carotid arteries do show some atherosclerotic changes but no focal stenosis is identified. There is some mild calcified plaque at the carotid bifurcations bilaterally. Both the right and left internal carotid arteries are widely patent. There is some calcified plaque at the carotid siphons bilaterally but no focal stenosis is identified. The left vertebral artery appears to be dominant but both vertebral arteries appear widely patent. The basilar artery is patent. Right and left posterior cerebral arteries as well as the right and left anterior cerebral arteries appear patent. The M1 and M2 segments of the right and left middle cerebral arteries are patent. No thromboembolism or large vessel occlusion is identified. IMPRESSION: Essentially unremarkable CT angiogram of the head and neck. No high-grade stenosis, thromboembolism or large vessel occlusion is detected. Dictated by: Dictated on workstation # [id number]
[2021-06-20] MEDS: inSUlin ASPART (NovoLOG) 1 UNIT/0.01 ML (CHARGE PER UNIT) SC SCH ×2 (06:27→11:38)
[2021-06-20] MEDS: CATHETER FLUSH 10 ML SYR IV SCH ×2 (06:27→11:38)
--- NOTE | 2021-06-20 09:09 | Tele-ICU Progress Note ---
Subjective Date Seen by a Provider: Jun 20, 2021 Time Seen by a Provider: 09:06 Subjective/Events-last exam 86 yo M with HTN crisis, now BP controlled, now 102/67 on PRN IV hydralazine also being treated for melanoma, has Hx of CABG, CEA, als PVD, DM Sepsis Event Evaluation Height, Weight, BMI Height: 6'0.00" Weight: 230lbs. 0.0oz. [id number]; 29.50 BMI Method: Exam Exam Patient acknowledged, consented, and participated in this virtual visit which was conducted using real time audio/video Vital Signs Date Time Temp Pulse Resp B/P (MAP) Pulse Ox O2 Delivery O2 Flow Rate FiO2 06/20/21 07:48 36.4 85 20 102/67 (79) 98 High Flow N/C 1.00 06/20/21 07:00 69 06/20/21 06:00 84 14 127/71 (89) 95 Room Air 06/20/21 05:00 80 16 106/60 (75) 97 Room Air 06/20/21 04:00 82 17 163/89 (113) 95 Room Air 06/20/21 03:00 84 18 109/63 (78) 96 Room Air 06/20/21 02:15 84 20 122/54 (76) 96 Room Air 06/20/21 01:45 89 16 101/56 (71) 95 Room Air 06/20/21 01:15 86 16 133/58 (83) 95 Room Air 06/20/21 01:00 91 19 159/73 (101) 94 Room Air 06/20/21 00:51 84 06/20/21 00:45 85 18 169/93 (118) 96 Room Air 06/20/21 00:40 98 Room Air 06/20/21 00:30 85 18 176/86 (116) 96 Room Air 06/20/21 00:16 36.7 84 16 165/89 96 Room Air 06/19/21 22:02 36.5 66 19 228/106 (146) 96 Room Air I & O 06/20/21 07:00 Intake Total 350 ml Output Total 1200 ml Balance -850 ml Height & Weight Height: 6'0.00" Weight: 230lbs. 0.0oz. [id number]; 29.50 BMI Method: General Appearance: No Apparent Distress, WD/WN, Other (FLAT AFFECT. DOES NOT APPEAR ILL OR TO BE IN ANY DISCOMFORT OR DISTRESS. ) HEENT: PERRL/EOMI Neck: Normal Inspection, Carotid Bruit (ON RIGHT); No JVD Respiratory: Lungs Clear, Normal Breath Sounds, No Accessory Muscle Use, No Respiratory Distress Cardiovascular: Regular Rate, Rhythm, No Murmur Capillary Refill: Less Than 3 Seconds Gastrointestinal: normal bowel sounds, non tender, soft Extremity: Normal Capillary Refill, Pedal Edema (2+ BILATERALLY. 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 NO FOCAL DEFICIT NOTED. NIH 0. HAS DIFFUSE GENERALIZED WEAKNESS, BUT NO FOCAL WEAKNESS. HAS SLIGHT DELAY IN SPEECH AND DIFFICULTY COMPLETING THOUGHTS. SPEECH IS CLEAR AND PT IS NOT CONFUSED. HE DOES HAVE SOME MILD/CHRONIC POOR MEMORY--THIS IS UNCHANGED FROM NORMAL BASELINE. ) Skin: Normal Color, Warm/Dry Results Lab Laboratory Tests 06/19/21 22:10 06/20/21 04:43 Assessment/Plan Assessment/Plan BP controlled, can go to floor Critical Care: Critically Ill Patient Time spent with patient (mins): 25 LACI WADE MD Jun 20, 2021 09:09
--- NOTE | 2021-06-20 09:33 | History & Physical ---
JANY VALDOVINOS 06/20/21 0933: History of Present Illness History of Present Illness Reason for visit/HPI HTN; trouble speaking Pt is 86yo male with melanoma, CAD, CABG, PVD, dementia, TID, T2DM, and esse ntial tremor. Pt came to [place] ER after his noticed he couldn't find the words he wanted to say and he reported his head "felt funny". They took his bp at home and came to the ER when it reached 212/90. His R arm also hurt on admission. He has a history of 4 previous admissions for hypertensive encephalopathy. Pt was given hydralazine. His bp is currently 114/52 with a hea rt rate of 79. He is mildly nauseous this morning and has had a slight belly ache for the past month. He is also slightly lightheaded currently. The pt started chemo for melanoma last week. The melanoma is reportedly on his back and has spread to his L axillary lymph nodes. He also reports a "spot on his brain" of unknown significance. Pt denies CP, palpitations, fever and chills at this time. He is slightly SOB. Note pt due for chemo treatment Monday. Date of Admission Jun 19, 2021 at 23:55 Date Seen by a Provider: Jun 20, 2021 Time Seen by a Provider: 08:50 I consulted on this patient on 06/20/21 09:28 Attending Physician Josh Roberson MD Admitting Physician Josh Roberson MD Consult Allergies and Home Medications Allergies Coded Allergies: hydrocodone (Unverified Allergy, Mild, 03/22/07) amlodipine (Unverified Allergy, Unknown, 10/25/13) benazepril (Unverified Allergy, Unknown, 10/25/13) carbidopa (Unverified Allergy, Unknown, 05/18/21) codeine (Verified Allergy, Unknown, 09/02/05) levodopa (Unverified Allergy, Unknown, 05/18/21) telmisartan (Unverified Allergy, Unknown, 10/25/13) Patient Home Medication List Alprazolam (Xanax) 0.25 Mg Tablet, 0.25 MG PO Q6H PRN for ANXIETY Prescribed by: JOSH ROBERSON on 03/31/21 0930 Aspirin (Aspirin EC) 81 Mg Tablet., 81 MG PO HS Prescribed by: JOSH ROBERSON on 03/31/21928 Last Action: Last Taken Edited Docusate Sodium (Dulcolax Stool Softener) 100 Mg Capsule, 100 MG PO BID, (Reported) Entered as Reported by: ANA VENTURA on 05/18/21955 Last Action: Edited Doxazosin Mesylate (Doxazosin Mesylate) 4 Mg Tablet, 8 MG PO HS Prescribed by: JOSH ROBERSON on 03/31/21928 Last Action: Last Taken Edited Furosemide (Furosemide) 20 Mg Tablet, 20 MG PO DAILY PRN, (Reported) Entered as Reported by: Adriane Hills on 06/20/21420 Last Action: New Order Hydralazine HCl (Hydralazine HCl) 50 Mg Tablet, 50 MG PO TID Prescribed by: JOSH ROBERSON on 03/31/21928 Last Action: Last Taken Edited Losartan Potassium (Losartan Potassium) 50 Mg Tablet, 50 MG PO DAILY Prescribed by: JOSH ROBERSON on 03/31/21928 Last Action: Last Taken Edited Metformin HCl (Metformin HCl) 500 Mg Tablet, 500 MG PO BIDAC, (Reported) Entered as Reported by: PASCUAL PEREZ on 05/19/21899 Last Action: Last Taken Edited Pantoprazole Sodium (Pantoprazole Sodium) 40 Mg Tablet.dr, 40 MG PO BIDAC Prescribed by: JOSH ROBERSON on 03/31/21928 Last Action: Last Taken Edited Potassium Chloride (Potassium Chloride) 10 Meq Tab.er.prt, 10 MEQ PO DAILY PRN, (Reported) Entered as Reported by: Adriane Hills on 06/20/21420 Last Action: New Order Propranolol HCl (Propranolol HCl ER) 60 Mg Cap.sa.24h, 60 MG PO BID Prescribed by: ANA VENTURA on 05/18/21956 Last Action: Last Taken Edited Quetiapine Fumarate (Quetiapine Fumarate) 25 Mg Tablet, 12.5 MG PO HS, (Reported) Entered as Reported by: Adriane Hills on 06/20/21420 Last Action: New Order Trazodone HCl (Trazodone HCl) 50 Mg Tablet, 50 MG PO HS PRN for ANXIETY Prescribed by: JOSH ROBERSON on 03/31/21928 Ubidecarenone (Co Q-10) 100 Mg Capsule, 100 MG PO DAILY Prescribed by: JOSH ROBERSON on 03/31/21 3310 Last Action: Last Taken Edited Past Diestnt-Ndlmdh-Iupotp Hx Patient Social History Tobacco Use?: No Smoking Status: Former Smoker Use of E-Cig and/or Vaping dev: No Substance use?: No Alcohol Use?: No Pt feels they are or have been: No Immunizations Up To Date Date of Influenza Vaccine: Nov 27, 2020 First/Initial COVID19 Vaccinat: FEB 2020 Second COVID19 Vaccination Jose: APRIL 2020 Tetanus Booster (TDap): More Than 5 Years Date of Pneumonia Vaccine: July 02, 2009 Seasonal Allergies Seasonal Allergies: No Current Status Advance Directives: Yes Communicates: Verbally Primary Language: Tajik Preferred Spoken Language: Tajik Is interpretation needed?: No Sensory deficits: Vision impairment, Hearing impairment Implanted or Applied Medical D: Port-a-cath Past Medical History Surgeries: Abdominal, Cardiac, CABG, Orthopedic, Transurethral Resection, Vascular Surgery Currently Using CPAP: No Currently Using BIPAP: No Chronic Edema/Swelling, Coronary Artery Disease, High Cholesterol, Hypertension, Peripheral Vascular Dementia, TIA Sexually Transmitted Disease: No Benign Prostatic Hyperpl, Prostate Problems Abdominal Hernia, Gastroesophageal Reflux, Chronic Constipation Arthritis Diabetes, Non-Insulin dep Hearing Impairment: Hard of Hearing, Hearing Aide Right Skin, Melanoma Did You Recieve Any Treatments: Yes METASTATIC MELANOMA DX , HAD SIMPLE EXCISION AND STARTED CHEMO 05/2021 Sleep Difficulties, Anxiety Blood Disorders: No Family Medical History Heart Disease, Hypertension SOCIAL HISTORY: -NO SMOKING -RARE ALCOHOL USE -NO DRUG USE PAST SURGICAL HISTORY: -HERNIA REPAIR X 3 -TURP -KNEE SURGERY FOR TORN MENISCUS -BILATERAL CAROTID ENDARTERECTOMY 2005 -3-VESSEL CABG -REMOVAL OF MELANOMA OF BACK WITH LYMPH NODE BIOPSY RIGHT AXILLA 04/2021 -PORT RIGHT CHEST 04/2021 ADDITONAL PMH: -MULTIPLE EPISODES OF 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 -FREQUENT EPISODES OF DELIRIUM/INCREASED CONFUSION, HALLUCINATIONS, SPEECH ABNORMALITIES -MULTIFACTORIAL DUE TO DEMENTIA AND "SUNDOWNER'S", PARKINSON'S, HYPERTENSIVE ENCEPHALOPATHY -HAS HAD PROGRESSIVE GENERALIZED WEAKNESS AND INABILTIY TO DO ADL'S INCLUDING BEING UNABLE TO FEED HIMSELF Review of Systems Constitutional: No chills, No fever EENTM: No hearing loss, No vision loss Respiratory: No cough; short of breath Cardiovascular: No chest pain, No palpitations Gastrointestinal: abdominal pain (belly ache the last month), constipation (chronic constipation; last bm was yesterday; takes colace ); No nausea, No vomiting Genitourinary: No dysuria; frequency Musculoskeletal: other (legs ache knees down) Skin: hx of skin cancer (melanoma currently); No rash Psychiatric/Neurological: Denies Headache Physical Exam Vital Signs Vital Signs - First Documented 06/19/21 06/20/21 22:02 07:48 Temp 36.5 Pulse 66 Resp 19 B/P (MAP) 228/106 (146) Pulse Ox 96 O2 Delivery Room Air O2 Flow Rate 1.00 Capillary Refill : Less Than 3 Seconds Height, Weight, BMI Height: 6'0.00" Weight: 230lbs. 0.0oz. [id number]; 29.50 BMI Method: General Appearance: No Apparent Distress, WD/WN Respiratory: Lungs Clear, Normal Breath Sounds, No Accessory Muscle Use Cardiovascular: Regular Rate, Rhythm, No Murmur Gastrointestinal: Non Tender, Soft Neurologic/Psychiatric: Alert, Oriented x3, Normal Mood/Affect Skin: Warm/Dry, Other (melanoma on back) Assessment/Plan Assessment and Plan Hypertensive encephalopathy- resolved Hypotension currently Melanoma- has port, chemo started last week CAD, CABG PVD T2DM Dementia Essential tremor Chronic constipation- hx of enemas Cardiology consulted Resume home meds May need to decrease hydralazine if bp keeps lowering Monitor labs and vitals Monitor bowel movements with hx chronic constipation LUCILLE REED DO 06/20/21 1059: Allergies and Home Medications Allergies Coded Allergies: hydrocodone (Unverified Allergy, Mild, 03/22/07) amlodipine (Unverified Allergy, Unknown, 10/25/13) benazepril (Unverified Allergy, Unknown, 10/25/13) carbidopa (Unverified Allergy, Unknown, 05/18/21) codeine (Verified Allergy, Unknown, 09/02/05) levodopa (Unverified Allergy, Unknown, 05/18/21) telmisartan (Unverified Allergy, Unknown, 10/25/13) Patient Home Medication List Home Medication List Reviewed: Yes Alprazolam (Xanax) 0.25 Mg Tablet, 0.25 MG PO Q6H PRN for ANXIETY Prescribed by: JOSH ROBERSON on 03/31/21929 Aspirin (Aspirin EC) 81 Mg Tablet.dr, 81 MG PO HS Prescribed by: JOSH ROBERSON on 03/31/21928 Last Action: Last Taken Edited Docusate Sodium (Dulcolax Stool Softener) 100 Mg Capsule, 100 MG PO BID, (Reported) Entered as Reported by: ANA VENTURA on 05/18/21955 Last Action: Edited Doxazosin Mesylate (Doxazosin Mesylate) 4 Mg Tablet, 8 MG PO HS Prescribed by: JOSH ROBERSON on 03/31/21928 Last Action: Last Taken Edited Furosemide (Furosemide) 20 Mg Tablet, 20 MG PO DAILY PRN, (Reported) Entered as Reported by: Adriane Hills on 06/20/21420 Last Action: New Order Hydralazine HCl (Hydralazine HCl) 50 Mg Tablet, 50 MG PO TID Prescribed by: JOSH ROBERSON on 03/31/21928 Last Action: Last Taken Edited Losartan Potassium (Losartan Potassium) 50 Mg Tablet, 50 MG PO DAILY Prescribed by: JOSH ROBERSON on 03/31/21928 Last Action: Last Taken Edited Metformin HCl (Metformin HCl) 500 Mg Tablet, 500 MG PO BIDAC, (Reported) Entered as Reported by: PASCUAL PEREZ on 05/19/21899 Last Action: Last Taken Edited Pantoprazole Sodium (Pantoprazole Sodium) 40 Mg Tablet.dr, 40 MG PO BIDAC Prescribed by: JOSH ROBERSON on 03/31/21928 Last Action: Last Taken Edited Potassium Chloride (Potassium Chloride) 10 Meq Tab.er.prt, 10 MEQ PO DAILY PRN, (Reported) Entered as Reported by: Adriane Hills on 06/20/21420 Last Action: New Order Propranolol HCl (Propranolol HCl ER) 60 Mg Cap.sa.24h, 60 MG PO BID Prescribed by: ANA VENTURA on 05/18/21956 Last Action: Last Taken Edited Quetiapine Fumarate (Quetiapine Fumarate) 25 Mg Tablet, 12.5 MG PO HS, (Rep orted) Entered as Reported by: Adriane Hills on 06/20/21420 Last Action: New Order Trazodone HCl (Trazodone HCl) 50 Mg Tablet, 50 MG PO HS PRN for ANXIETY Prescribed by: JOSH ROBERSON on 03/31/21928 Ubidecarenone (Co Q-10) 100 Mg Capsule, 100 MG PO DAILY Prescribed by: JOSH ROBERSON on 03/31/21928 Last Action: Last Taken Edited Assessment/Plan Admission Diagnosis Admission Status: Observation Supervisory-Addendum Brief Verification & Attestation Participated in pt care: history, procedure Personally performed: exam, history, supervision of care Care discussed with: Medical Student Procedures: n/a Results interpretation: Verified all documentation Patient seen and evaluated. Has not required any further medications since dose of hydralazine given in ER and is back to baseline--awake and alert. at bedside. Discussed that if patient is up and around today with no issues then can likely be discharged home pending cardiology evaluation. Discussed using prn extra hydralazine dose for BP greater than 160/90. JANY VALDOVINOS Jun 20, 2021 09:33 ULCILLE REED DO Jun 20, 2021 10:59
[2021-06-20] MEDS ORDERED: HYDR-3924 PO (11:03)
[2021-06-20] MEDS ORDERED: hydrALAZINE (APRESOLINE) 25 MG TAB ONE ×2 (12:29→12:34)
[2021-06-20] MEDS ORDERED: hydrALAZINE (APRESOLINE) 25 MG TAB PO ONE (12:30)
--- NOTE | 2021-06-20 15:07 | Consultation-Cardiology ---
HPI-Cardiology Cardiology Consultation: Date of Consultation 06/20/21 Time Seen by a Provider: 15:00 Date of Admission Attending Physician Josh Roberson MD Admitting Physician Josh Roberson MD Consulting Physician SWATI GONZALEZ MD, MA FACP, FACC, FSCAI, CCDS HPI: Chief Complaint: Reason for Card consult: Hypertension 86 yo man whose noted some mild difficulty with speech and checked bp that was high and that continued to climb on successive bp measurements. Came to the ER. Speech had cleared even before coming to the hosp. No cp or palp or syncope or swelling. No n/v/d. No focal weakness Review of Systems-Cardiology Review of Systems Constitutional: malaise; No weight loss, No weight gain Eyes: No vision change Ears/Nose/Throat: No ear discharge, No nasal drainage, No recent hearing loss Respiratory: As described under HPI Cardiovascular: As described under HPI Gastrointestinal: No diarrhea, No nausea Genitourinary: No dysuria, No hematuria Musculoskeletal: No joint pain Skin: No rash, No ulcerations Psychiatric/Neurological: No seizure, No focal weakness Hematologic: No bleeding abnormalities EXP-Oxerjc-Mixaqe Hx Patient Social History Smoking Status: Former Smoker 2nd Hand Smoke Exposure: No Have you traveled recently?: No Alcohol Use?: No Pt feels they are or have been: No Immunizations Up To Date Date of Pneumonia Vaccine: July 02, 2009 Date of Influenza Vaccine: Nov 27, 2020 Past Medical History PMH As described under Assessment. Family Medical History Family Medical History: Does not report fam h/o early CAD or SCD Allergies and Home Medications Allergies Coded Allergies: hydrocodone (Unverified Allergy, Mild, 03/22/07) amlodipine (Unverified Allergy, Unknown, 10/25/13) benazepril (Unverified Allergy, Unknown, 10/25/13) carbidopa (Unverified Allergy, Unknown, 05/18/21) codeine (Verified Allergy, Unknown, 09/02/05) levodopa (Unverified Allergy, Unknown, 05/18/21) telmisartan (Unverified Allergy, Unknown, 10/25/13) Patient Home Medication List Home Medication List Reviewed: Yes Alprazolam (Xanax) 0.25 Mg Tablet, 0.25 MG PO Q6H PRN for ANXIETY Prescribed by: JOSH ROBERSON on 03/31/21929 Aspirin (Aspirin EC) 81 Mg Tablet.dr, 81 MG PO HS Prescribed by: JOSH ROBERSON on 03/31/21928 Last Action: Last Taken Edited Docusate Sodium (Dulcolax Stool Softener) 100 Mg Capsule, 100 MG PO BID, (Reported) Entered as Reported by: ANA VENTURA on 05/18/21955 Last Action: Edited Doxazosin Mesylate (Doxazosin Mesylate) 4 Mg Tablet, 8 MG PO HS Prescribed by: JOSH ROBERSON on 03/31/21928 Last Action: Last Taken Edited Furosemide (Furosemide) 20 Mg Tablet, 20 MG PO DAILY PRN, (Reported) Entered as Reported by: Adriane Hills on 06/20/21420 Last Action: New Order Hydralazine HCl (Hydralazine HCl) 50 Mg Tablet, 50 MG PO TID Prescribed by: JOSH ROBERSON on 03/31/21928 Last Action: Last Taken Edited Hydralazine HCl (Hydralazine HCl) 50 Mg Tablet, 25 MG PO TID PRN for BLOOD PRESSURE Prescribed by: LUCILLE REED on 06/20/211102 Losartan Potassium (Losartan Potassium) 50 Mg Tablet, 50 MG PO DAILY Prescribed by: JOSH ROBERSON on 03/31/21928 Last Action: Last Taken Edited Metformin HCl (Metformin HCl) 500 Mg Tablet, 500 MG PO BIDAC, (Reported) Entered as Reported by: PASCUAL PEREZ on 05/19/21 09 Last Action: Last Taken Edited Pantoprazole Sodium (Pantoprazole Sodium) 40 Mg Tablet.dr, 40 MG PO BIDAC Prescribed by: JOSH ROBERSON on 03/31/21928 Last Action: Last Taken Edited Potassium Chloride (Potassium Chloride) 10 Meq Tab.er.prt, 10 MEQ PO DAILY PRN, (Reported) Entered as Reported by: Adriane Hills on 06/20/21420 Last Action: New Order Propranolol HCl (Propranolol HCl ER) 60 Mg Cap.sa.24h, 60 MG PO BID Prescribed by: ANA VENTURA on 05/18/21956 Last Action: Last Taken Edited Quetiapine Fumarate (Quetiapine Fumarate) 25 Mg Tablet, 12.5 MG PO HS, (Reported) Entered as Reported by: Adriane Hills on 06/20/21420 Last Action: New Order Trazodone HCl (Trazodone HCl) 50 Mg Tablet, 50 MG PO HS PRN for ANXIETY Prescribed by: JOSH ROBERSON on 03/31/21928 Ubidecarenone (Co Q-10) 100 Mg Capsule, 100 MG PO DAILY Prescribed by: JOSH ROBERSON on 03/31/21928 Last Action: Last Taken Edited Physical Exam-Cardiology Physical Exam Vital Signs/I&O 06/20/21 06/20/21 06/20/21 06/20/21 04:00 05:00 06:00 07:00 Pulse 82 80 84 69 Resp 17 16 14 B/P (MAP) 163/89 (113) 106/60 (75) 127/71 (89) Pulse Ox 95 97 95 O2 Delivery Room Air Room Air Room Air 06/20/21 06/20/21 06/20/21 06/20/21 07:00 07:48 08:00 09:00 Temp 36.4 Pulse 69 85 71 77 Resp 18 20 16 15 B/P (MAP) 131/66 (87) 102/67 (79) 114/52 (72) 108/53 (71) Pulse Ox 94 98 95 95 O2 Delivery Room Air High Flow N/C High Flow N/C High Flow N/C O2 Flow Rate 1.00 1.00 1.00 06/20/21 06/20/21 06/20/21 06/20/21 10:00 11:00 11:53 12:00 Temp 36.2 Pulse 74 54 58 Resp 15 15 15 B/P (MAP) 135/65 (88) 134/67 (89) 151/75 (100) Pulse Ox 97 95 95 O2 Delivery High Flow N/C High Flow N/C High Flow N/C O2 Flow Rate 1.00 1.00 1.00 06/20/21 13:00 Pulse 61 Capillary Refill : Less Than 3 Seconds Constitutional: AAO x 3, well-developed, well-nourished HEENT: PERRL, EOMI, hard of hearing Neck: carotid pulses are 2 + bilaterally Respiratory: No accessory muscle use; other (good, bilateral air entry) Cardiovascular: regular rate-rhythm, S1 and S2, systolic murmur (soft ANA at card base) Gastrointestinal: No tender; soft; No guarding, No rebound; audible bowel sounds Extremities: No clubbing, No cyanosis, No significant edema Neurologic/Psychiatric: oriented x 3, other (moves all limbs equally) Skin: No rash on exposed areas, No ulcerations on exposed areas Data Review Labs Laboratory Tests 06/19/21 22:10: White Blood Count 6.1, Red Blood Count 4.15L, Hemoglobin 12.8L, Hematocrit 38L, Mean Corpuscular Volume 92, Mean Corpuscular Hemoglobin 31, Mean Corpuscular Hemoglobin Concent 33, Red Cell Distribution Width 13.1, Platelet Count 150, Mean Platelet Volume 10.4, Immature Granulocyte % (Auto) 0, Neutrophils (%) (Auto) 49, Lymphocytes (%) (Auto) 31, Monocytes (%) (Auto) 16H, Eosinophils (%) (Auto) 2, Basophils (%) (Auto) 1, Neutrophils # (Auto) 3.0, Lymphocytes # (Auto) 1.9, Monocytes # (Auto) 1.0, Eosinophils # (Auto) 0.1, Basophils # (Auto) 0.0, Immature Granulocyte # (Auto) 0.0, Prothrombin Time 13.7, INR Comment 1.0, A ctivated Partial Thromboplast Time 28, D-Dimer 1.46H, Sodium Level 136, Potassi um Level 3.9, Chloride Level 99, Carbon Dioxide Level 24, Anion Gap 13, Blood Urea Nitrogen 11, Creatinine 0.87, Estimat Glomerular Filtration Rate 83, BUN/Creatinine Ratio 13, Glucose Level 103, Calcium Level 9.2, Corrected Calcium 9.4, Magnesium Level 1.8, Total Bilirubin 0.4, Aspartate Amino Transf (AST/SGOT) 18, Alanine Aminotransferase (ALT/SGPT) 18, Alkaline Phosphatase 48, Total Creatine Kinase 31, Creatine Kinase MB 0.6, Troponin I < 0.028, B-Type Natriuretic Peptide 47.3, Total Protein 6.4, Albumin 3.8 06/19/21 22:25: Glucometer 95 06/19/21 22:30: Urine Color YELLOW, Urine Clarity CLEAR, Urine pH 8.0, Urine Specific [place] 1.010L, Urine Protein NEGATIVE, Urine Glucose (UA) NEGATIVE, Urine Ketones NEGATIVE, Urine Nitrite NEGATIVE, Urine Bilirubin NEGATIVE, Urine Urobilinogen 0.2, Urine Leukocyte Esterase NEGATIVE, Urine RBC (Auto) NEGATIVE, Urine RBC NONE, Urine WBC NONE, Urine Crystals NONE, Urine Bacteria NEGATIVE, Urine Casts NONE, Urine Mucus NEGATIVE, Urine Culture Indicated NO 06/20/21 04:43: White Blood Count 7.2, Red Blood Count 4.21L, Hemoglobin 13.1L, Hematocrit 39L, Mean Corpuscular Volume 92, Mean Corpuscular Hemoglobin 31, Mean Corpuscular Hemoglobin Concent 34, Red Cell Distribution Width 13.2, Platelet Count 157, Mean Platelet Volume 10.8, Immature Granulocyte % (Auto) 0, Neutrophils (%) (Auto) 56, Lymphocytes (%) (Auto) 26, Monocytes (%) (Auto) 15H, Eosinophils (%) (Auto) 2, Basophils (%) (Auto) 1, Neutrophils # (Auto) 4.0, Lymphocytes # (Auto) 1.9, Monocytes # (Auto) 1.1H, Eosinophils # (Auto) 0.1, Basophils # (Auto) 0.1, Immature Granulocyte # (Auto) 0.0, Sodium Level 137, Potassium Level 3.9, Chloride Level 101, Carbon Dioxide Level 23, Anion Gap 13, Blood Urea Nitrogen 10, Creatinine 0.80, Estimat Glomerular Filtration Rate 85, BUN/Creatinine Ratio 13, Glucose Level 115H, Calcium Level 9.1, Triglycerides Level 94, Cholesterol Level 143, LDL Cholesterol Direct 101, VLDL Cholesterol 19, HDL Cholesterol 35L 06/20/21 10:54: Glucometer 146H Laboratory Tests 06/19/21 22:10 06/20/21 04:43 A/P-Cardiology Assessment/Admission Diagnosis Uncontrolled hypertension, labile, due to autonomic dysfunction - multiple med intolerances: amlodipine, Micardis, benazepril, Lotrel, diltiazem - Echocardiogram was done on April 30, 2020 showing normal LV size, EF 55 to 65%, left atrium 5.6 cm, mild MR, PA pressure 35 mmHg Sinus node dysfunction - sinus bradycardia with generalized fatigue and loss of energy - Holter monitor done in July 2020 showing sinus rhythm with episodes of bradycardia, sinus pauses with escape junctional bradycardia and first-degree AV block with right bundle branch block, occasional PVCs and PACs and short PAT - followed by Dr Dempsey Coronary artery disease - Coronary artery bypass surgery in August 2005 at [facility]. - Cardiac catheterization was in March 2007. It showed severe left coronary artery disease. There was a patent graft to an obtuse marginal branch of the left circumflex artery and a patent graft to the distal left anterior descending artery. A saphenous vein graft to the mid left anterior descending artery was occluded. The right coronary artery was dominant and had mild to moderate disease. Left ventricular ejection fraction was 60% and there was minimal localized anterolateral hypokinesis. Left ventricular end-diastolic pressure was normal. - Stress test July 2018 revealed no ischemia or infarct. H/o melanoma History of right bundle branch block. Carotid artery stenosis - hx of L CEA in 2005 - CTA of head and neck done Nov 2020 showing bilateral nonobstructive disease Maturity onset diabetes mellitus being managed by Dr. Roberson. Hyperlipidemia - intolerant to statin Chronic tremor treated with beta-jesica therapy - maintained on Inderal Sleep apnea syndrome - Non-compliant with therapy Chronic left sided hearing loss S/p L carpal tunnel surgery by Dr Grider on Oct 30, 2013. Bilateral leg discomfort, but ABIs of 01/06/15 were normal Chronic mild intermittent dependent leg swelling, likely related to venous insuff Discussion and Recomendations * Complex bp management. Multiple med intolerance. Markedly labile bp * Continue previous bp regimen and use hydralazine prn for SBP greater than 170 mmHg * Outpt f/u with pcp and with his cadiologist (Dr Dempsey) advised SWATI GONZALEZ MD FACP FAC CCDS Jun 20, 2021 15:07
== END 2021-06-20 15:37 | disposition home or self-care (01) | DRG 78 ==
LOC: EDUNIT# 21:41 → ER 21:43 → ICU 23:55
PROVIDERS: ADMIT Family Medicine; ATTEND Family Medicine
DX: I67.4 Hypertensive encephalopathy (principal); I16.1 Hypertensive emergency; C77.3 Secondary and unspecified malignant neoplasm of axilla and upper limb lymph nodes; I25.810 Atherosclerosis of coronary artery bypass graft(s) without angina pectoris; I10 Essential (primary) hypertension; I25.10 Atherosclerotic heart disease of native coronary artery without angina pectoris; F03.90 Unspecified dementia, unspecified severity, without behavioral disturbance, psychotic disturbance, mood disturbance, and anxiety; G20 Parkinson's disease; F02.80 Dementia in other diseases classified elsewhere, unspecified severity, without behavioral disturbance, psychotic disturbance, mood disturbance, and anxiety; E11.9 Type 2 diabetes mellitus without complications; E78.5 Hyperlipidemia, unspecified; E78.00 Pure hypercholesterolemia, unspecified; K21.9 Gastro-esophageal reflux disease without esophagitis; F41.9 Anxiety disorder, unspecified; I73.9 Peripheral vascular disease, unspecified; G25.0 Essential tremor; N40.0 Benign prostatic hyperplasia without lower urinary tract symptoms; M19.91 Primary osteoarthritis, unspecified site; I49.5 Sick sinus syndrome; I45.10 Unspecified right bundle-branch block; G47.30 Sleep apnea, unspecified; Z95.1 Presence of aortocoronary bypass graft; Z86.73 Personal history of transient ischemic attack (TIA), and cerebral infarction without residual deficits; Z79.84 Long term (current) use of oral hypoglycemic drugs; Z79.82 Long term (current) use of aspirin; Z88.5 Allergy status to narcotic agent; Z88.8 Allergy status to other drugs, medicaments and biological substances; Z82.49 Family history of ischemic heart disease and other diseases of the circulatory system; H91.91 Unspecified hearing loss, right ear; Z97.4 Presence of external hearing-aid
CPT/HCPCS: 36415; 70450; 70496; 70498; 71045; 80048; 80053; 80061; 81000; 82550; 82553; 82947; 83735; 83880; 84484; 85025; 85379; 85610; 85730; 93005; 93041

== ENCOUNTER 2021-06-23 13:21 | Outpatient (RCR) | payer MEDICARE, BC ==
[2021-06-03 14:35] LABS: BASOPHILS # (AUTO) 0.1 10^3/uL (0.0-0.1); BASOPHILS % (AUTO) 1 % (0-10); EOSINOPHILS # (AUTO) 0.2 10^3/uL (0.0-0.3); EOSINOPHILS % (AUTO) 3 % (0-10); HEMATOCRIT 36 % (40-54); HEMOGLOBIN 11.9 g/dL (13.3-17.7); LYMPHOCYTES % (AUTO) 26 % (12-44); MEAN CORPUSCULAR HEMOGLOBIN 32 pg (25-34); MEAN CORPUSCULAR HGB CONC 33 g/dL (32-36); MEAN CORPUSCULAR VOLUME 96 fL (80-99); MEAN PLATELET VOLUME 10.5 fL (9.0-12.2); MONOCYTES # (AUTO) 0.6 10^3/uL (0.0-1.0); MONOCYTES % (AUTO) 8 % (0-12); NEUTROPHILS # (AUTO) 4.6 10^3/uL (1.8-7.8); NEUTROPHILS % (AUTO) 61 % (42-75); PLATELET COUNT 180 10^3/uL (130-400); WHITE BLOOD COUNT 7.4 10^3/uL (4.3-11.0)
[2021-06-03 14:45] LABS: ALBUMIN 3.6 GM/DL (3.2-4.5)
[2021-06-03 14:46] LABS: POTASSIUM 3.5 MMOL/L (3.6-5.0)
[2021-06-03 14:47] LABS: CALCIUM 8.7 MG/DL (8.5-10.1)
[2021-06-03 14:48] LABS: TOTAL PROTEIN 6.1 GM/DL (6.4-8.2)
[2021-06-03 14:50] LABS: BILIRUBIN,TOTAL 0.6 MG/DL (0.1-1.0)
[2021-06-03 14:52] LABS: CREATININE SERUM 0.81 MG/DL (0.60-1.30)
[~2021-06-23] VITALS: Ht 182.9 cm; Wt 98.0 kg
[~2021-06-23 13:21] MED LIST changes: +FURO20TA4 PO; +HEParin (CENTRAL IV FLUSH) 500 UNIT/5 ML SYR IV PRN; +NS (IVPB) 250 ML IV SCH; +PEMBROLIZUMAB 200 MG in NS (IVPB) 50 ML IV SCH; +POTA10TA37 PO; +QUET25TA35 PO; +cloNIDine 0.1 MG (CATAPRES) TAB PO ONE
[2021-06-23 14:23] LABS: BASOPHILS # (AUTO) 0.1 10^3/uL (0.0-0.1); BASOPHILS % (AUTO) 1 % (0-10); EOSINOPHILS # (AUTO) 0.2 10^3/uL (0.0-0.3); EOSINOPHILS % (AUTO) 2 % (0-10); HEMATOCRIT 37 % (40-54); HEMOGLOBIN 12.3 g/dL (13.3-17.7); LYMPHOCYTES % (AUTO) 31 % (12-44); MEAN CORPUSCULAR HEMOGLOBIN 31 pg (25-34); MEAN CORPUSCULAR HGB CONC 33 g/dL (32-36); MEAN CORPUSCULAR VOLUME 94 fL (80-99); MEAN PLATELET VOLUME 10.4 fL (9.0-12.2); MONOCYTES # (AUTO) 0.8 10^3/uL (0.0-1.0); MONOCYTES % (AUTO) 12 % (0-12); NEUTROPHILS # (AUTO) 3.4 10^3/uL (1.8-7.8); NEUTROPHILS % (AUTO) 53 % (42-75); PLATELET COUNT 166 10^3/uL (130-400); WHITE BLOOD COUNT 6.3 10^3/uL (4.3-11.0)
[2021-06-23 14:44] LABS: ALBUMIN 3.7 GM/DL (3.2-4.5); BILIRUBIN,TOTAL 0.5 MG/DL (0.1-1.0); CALCIUM 8.8 MG/DL (8.5-10.1); CREATININE SERUM 0.9 MG/DL (0.60-1.30); POTASSIUM 4.1 MMOL/L (3.6-5.0); TOTAL PROTEIN 6.4 GM/DL (6.4-8.2)
== END 2021-06-26 | disposition home or self-care (01) ==
LOC: ONC 13:21
PROVIDERS: ATTEND Internal Medicine Hematology & Oncology
DX: Z51.11 Encounter for antineoplastic chemotherapy (principal); Z45.2 Encounter for adjustment and management of vascular access device; C43.9 Malignant melanoma of skin, unspecified; I10 Essential (primary) hypertension; I25.10 Atherosclerotic heart disease of native coronary artery without angina pectoris; E11.9 Type 2 diabetes mellitus without complications; E78.5 Hyperlipidemia, unspecified; E66.9 Obesity, unspecified
CPT/HCPCS: 36591; 80053; 85025; 96360; 96413; 99213

== ENCOUNTER 2021-07-14 13:19 | Outpatient (RCR) | payer MEDICARE, BC ==
[~2021-07-14 13:19] MED LIST changes: -cloNIDine 0.1 MG (CATAPRES) TAB PO ONE
[2021-07-14 13:44] LABS: BASOPHILS % (AUTO) 0 % (0-10); EOSINOPHILS % (AUTO) 0 % (0-10); HEMATOCRIT 35 % (40-54); HEMOGLOBIN 11.9 g/dL (13.3-17.7); LYMPHOCYTES # (AUTO) 2.4 10^3/uL (1.0-4.0); LYMPHOCYTES % (AUTO) 35 % (12-44); MEAN CORPUSCULAR HEMOGLOBIN 31 pg (25-34); MEAN CORPUSCULAR HGB CONC 34 g/dL (32-36); MEAN CORPUSCULAR VOLUME 92 fL (80-99); MEAN PLATELET VOLUME 10.1 fL (9.0-12.2); MONOCYTES # (AUTO) 0.7 10^3/uL (0.0-1.0); MONOCYTES % (AUTO) 11 % (0-12); NEUTROPHILS # (AUTO) 3.6 10^3/uL (1.8-7.8); NEUTROPHILS % (AUTO) 53 % (42-75); PLATELET COUNT 152 10^3/uL (130-400); WHITE BLOOD COUNT 6.8 10^3/uL (4.3-11.0)
[2021-07-14 14:16] LABS: ALBUMIN 3.6 GM/DL (3.2-4.5); BILIRUBIN,TOTAL 0.5 MG/DL (0.1-1.0); CALCIUM 9.1 MG/DL (8.5-10.1); CREATININE SERUM 0.82 MG/DL (0.60-1.30); POTASSIUM 3.7 MMOL/L (3.6-5.0); TOTAL PROTEIN 6.4 GM/DL (6.4-8.2)
== END 2021-07-27 | disposition home or self-care (01) ==
LOC: ONC 13:19
PROVIDERS: ATTEND Internal Medicine Hematology & Oncology
DX: Z51.11 Encounter for antineoplastic chemotherapy (principal); Z45.2 Encounter for adjustment and management of vascular access device; C43.9 Malignant melanoma of skin, unspecified; I10 Essential (primary) hypertension; I25.10 Atherosclerotic heart disease of native coronary artery without angina pectoris; E11.9 Type 2 diabetes mellitus without complications; E78.5 Hyperlipidemia, unspecified; E66.9 Obesity, unspecified
CPT/HCPCS: 80053; 85025; 96413; G0463; 36591

== ENCOUNTER → 2021-07-19 | Outpatient (CLI) | payer MEDICARE, BC ==
[~2021-07-19] MED LIST changes: -HEParin (CENTRAL IV FLUSH) 500 UNIT/5 ML SYR IV PRN; -NS (IVPB) 250 ML IV SCH; -PEMBROLIZUMAB 200 MG in NS (IVPB) 50 ML IV SCH
--- NOTE | 2021-07-20 09:00 | Diagnostic Imaging Report ---
Indication: Malignant melanoma of the trunk, restaging. Serum blood glucose level at time of injection 109 mg/dL. Patient was administered 14.9 mCi F-18 FDG intravenously in the right antecubital location and whole body PET imaging was performed. Noncontrast CT was also performed for attenuation correction and anatomic correlation. Correlation is made with prior PET/CT study from 05/10/2021. There is symmetric activity throughout the brain. Soft tissues of the neck are unremarkable. The previously biopsied lymph node in the left axilla is slightly increased in size since prior PET/CT study now measuring 2.8 cm compared with 2.4 cm. However, the degree of FDG avidity has decreased, with a low-level activity noted on today's study with SUV max of 2.7 compared with 7.7 on prior exam. No mediastinal or hilar hypermetabolism is seen. No definite pulmonary parenchymal hypermetabolism is identified. Physiologic activity throughout the gastrointestinal and genitourinary tract of abdomen pelvis is noted. No suspicious regions of hypermetabolism are identified. The bilateral lower extremities are unremarkable. IMPRESSION: A left axillary lymph node has shown slight increase in size since PET CT study 2 months earlier. However, the degree of FDG avidity has decreased and is now low level. No new areas of hypermetabolism are identified. Dictated by: Dictated on workstation # [id number]
== END ==
LOC: RAD 12:00
PROVIDERS: ATTEND Internal Medicine Hematology & Oncology
DX: C43.59 Malignant melanoma of other part of trunk (principal)
CPT/HCPCS: 78816; A9552

== ENCOUNTER → 2021-07-23 | Outpatient (CLI) | payer MEDICARE, BC ==
[~2021-07-23] MED LIST changes: +GADOTERATE 0.5 MMOL/ML (CLARISCAN) 20 ML VIAL IV ONE
--- NOTE | 2021-07-23 10:32 | Diagnostic Imaging Report ---
CLINICAL INDICATION: Patient with history of melanoma. EXAM: MRI of the brain performed without and with 20 cc of Clariscan IV contrast. Sequences include axial DWI, ADC map, coronal gradient echo, axial FLAIR, axial T1, axial T2, axial T1 post IV contrast whole brain, coronal T1 fat-sat post IV contrast whole brain, and sagittal T1 fat-sat post IV contrast whole brain. COMPARISON: MRI of the brain with and without contrast dated 05/20/2021 and 05/18/2021. Head CT without contrast dated 06/19/2021. Findings: There is no evidence of developing intracranial enhancing mass, stable. Stable subtle 5 mm area of enhancement involving left side of the [place] with subtle increased T2 signal in the region. Capillary telangiectasia suspected. Stable mild enhancing vascularity in the basilar right frontal lobe region. Stable 5 mm x 16 mm in AP x transverse dimension dural based enhancing lesion in the anterior aspect of left frontal region most consistent with meningioma. There is diffuse brain parenchymal volume loss again seen. There are multiple focal, patchy, and confluent areas of high T2 signal white matter changes seen throughout both cerebral hemispheres, likely representing chronic small vessel ischemic disease and leukoaraiosis. There is no hydrocephalus, brain herniation, or midline shift. There is no intracranial hemorrhage. Basal cisterns are unremarkable. The stebbins of [place] vascular structures show no gross abnormality as visualized. The extracranial soft tissues, skull, and orbits show no significant abnormality. There is mild mucosal thickening involving the ethmoid sinus. There is minimal amount of fluid involving the left mastoid air cells. IMPRESSION: 1: Stable MRI of the brain with no evidence of acute intracranial process. There is no developing enhancing mass. 2: Stable 5 mm subtle area of enhancement involving the left side of the fred[place]. Capillary telangiectasia suspected. 3: Stable sessile dural based enhancing mass in the anterior left frontal region most consistent with meningioma. 4: Age-related brain parenchymal changes. Dictated by: Dictated on workstation # [id number]
== END ==
LOC: RAD 08:22
PROVIDERS: ATTEND Internal Medicine Hematology & Oncology
DX: C43.59 Malignant melanoma of other part of trunk (principal); G31.1 Senile degeneration of brain, not elsewhere classified
CPT/HCPCS: 70553

== ENCOUNTER 2021-08-25 13:19 | Outpatient (RCR) | payer MEDICARE, BC ==
--- NOTE | 2021-08-04 14:48 | Diagnostic Imaging Report ---
EXAMINATION: CT abdomen and pelvis with and without intravenous contrast. TECHNIQUE: Precontrast acquisitions were acquired through the abdomen and pelvis. Multiple contiguous axial images were obtained through the abdomen and pelvis after the administration of intravenous contrast. All CT scans use one or more of the following dose optimizing techniques: automated exposure control, MA and/or KvP adjustment based on patient size and exam type or iterative reconstruction. HISTORY: RT flank pain COMPARISON: None available. FINDINGS: Lung bases: Bibasilar dependent atelectasis. Solid organs: The liver is normal without focal lesion. Multiple layering hyperdense stones within the gallbladder. There is no biliary ductal dilation. Pancreas is normal. Spleen is normal. Adrenal glands are normal. The kidneys are normal without hydronephrosis. Bowel: The stomach and small bowel are normal without obstruction. The colon and appendix are normal. Peritoneum: There is no intraperitoneal free fluid or free air. No suspicious lymphadenopathy. Vasculature: Calcification of the aorta without aneurysm. Musculoskeletal: Degenerative changes of the spine without suspicious osseous lesion or compression fracture. Bilateral L4 pars defects. Pelvis: The prostate gland is normal. The urinary bladder is normal. IMPRESSION: 1. No acute abnormality in the abdomen or pelvis. 2. No visualized renal calculus or hydronephrosis. Dictated by: Dictated on workstation # [id number]
[2021-08-04 15:17] LABS: BASOPHILS # (AUTO) 0.1 10^3/uL (0.0-0.1); BASOPHILS % (AUTO) 1 % (0-10); EOSINOPHILS % (AUTO) 0 % (0-10); HEMATOCRIT 37 % (40-54); HEMOGLOBIN 12.6 g/dL (13.3-17.7); LYMPHOCYTES % (AUTO) 28 % (12-44); MEAN CORPUSCULAR HEMOGLOBIN 32 pg (25-34); MEAN CORPUSCULAR HGB CONC 34 g/dL (32-36); MEAN CORPUSCULAR VOLUME 93 fL (80-99); MEAN PLATELET VOLUME 11.8 fL (9.0-12.2); MONOCYTES # (AUTO) 0.7 10^3/uL (0.0-1.0); MONOCYTES % (AUTO) 10 % (0-12); NEUTROPHILS # (AUTO) 4.4 10^3/uL (1.8-7.8); NEUTROPHILS % (AUTO) 61 % (42-75); PLATELET COUNT 225 10^3/uL (130-400); WHITE BLOOD COUNT 7.1 10^3/uL (4.3-11.0)
[2021-08-04 15:57] LABS: ALBUMIN 3.6 GM/DL (3.2-4.5); BILIRUBIN,TOTAL 0.4 MG/DL (0.1-1.0); CALCIUM 9.1 MG/DL (8.5-10.1); CREATININE SERUM 0.83 MG/DL (0.60-1.30); POTASSIUM 4.5 MMOL/L (3.6-5.0); TOTAL PROTEIN 6.7 GM/DL (6.4-8.2)
[~2021-08-25 13:19] MED LIST changes: +CATHETER FLUSH 10 ML SYR IV PRN; -GADOTERATE 0.5 MMOL/ML (CLARISCAN) 20 ML VIAL IV ONE; +HEParin (CENTRAL IV FLUSH) 500 UNIT/5 ML SYR IV PRN; +HOLD METFORMIN - RECEIVED CONTRAST 20 ML VIAL IV SCH; +IOHEXOL 350 MG/ML 100 ML (OMNIPAQUE 350) VIAL IV ONE; +NS (IVPB) 250 ML IV SCH; +NS 100 ML (IVPB) BAG IV ONE; +PEMBROLIZUMAB 200 MG in NS (IVPB) 50 ML IV SCH
[2021-08-25 13:52] LABS: BASOPHILS % (AUTO) 1 % (0-10); EOSINOPHILS % (AUTO) 0 % (0-10); HEMATOCRIT 35 % (40-54); LYMPHOCYTES # (AUTO) 2.2 10^3/uL (1.0-4.0); LYMPHOCYTES % (AUTO) 30 % (12-44); MEAN CORPUSCULAR HEMOGLOBIN 32 pg (25-34); MEAN CORPUSCULAR HGB CONC 34 g/dL (32-36); MEAN CORPUSCULAR VOLUME 94 fL (80-99); MEAN PLATELET VOLUME 9.9 fL (9.0-12.2); MONOCYTES # (AUTO) 0.7 10^3/uL (0.0-1.0); MONOCYTES % (AUTO) 9 % (0-12); NEUTROPHILS # (AUTO) 4.4 10^3/uL (1.8-7.8); NEUTROPHILS % (AUTO) 60 % (42-75); PLATELET COUNT 147 10^3/uL (130-400); WHITE BLOOD COUNT 7.4 10^3/uL (4.3-11.0)
[2021-08-25 14:19] LABS: ALBUMIN 3.4 GM/DL (3.2-4.5); BILIRUBIN,TOTAL 0.5 MG/DL (0.1-1.0); CALCIUM 8.8 MG/DL (8.5-10.1); CREATININE SERUM 0.88 MG/DL (0.60-1.30); POTASSIUM 3.7 MMOL/L (3.6-5.0)
== END 2021-08-26 | disposition home or self-care (01) ==
LOC: ONC 13:19
PROVIDERS: ATTEND Internal Medicine Hematology & Oncology
DX: Z51.11 Encounter for antineoplastic chemotherapy (principal); Z45.2 Encounter for adjustment and management of vascular access device; C43.9 Malignant melanoma of skin, unspecified; I10 Essential (primary) hypertension; I25.10 Atherosclerotic heart disease of native coronary artery without angina pectoris; E11.9 Type 2 diabetes mellitus without complications; E78.5 Hyperlipidemia, unspecified; E66.9 Obesity, unspecified
CPT/HCPCS: 74178; 80053; 85025; 96413; G0463; 36415; 36591

== ENCOUNTER → 2021-09-08 | Outpatient (CLI) | payer MEDICARE, BC ==
[~2021-09-08] MED LIST changes: -CATHETER FLUSH 10 ML SYR IV PRN; -HEParin (CENTRAL IV FLUSH) 500 UNIT/5 ML SYR IV PRN; -HOLD METFORMIN - RECEIVED CONTRAST 20 ML VIAL IV SCH; -IOHEXOL 350 MG/ML 100 ML (OMNIPAQUE 350) VIAL IV ONE; -NS (IVPB) 250 ML IV SCH; -NS 100 ML (IVPB) BAG IV ONE; -PEMBROLIZUMAB 200 MG in NS (IVPB) 50 ML IV SCH
--- NOTE | 2021-09-08 13:58 | Diagnostic Imaging Report ---
Indication: History of melanoma on the back. Patient has swelling in the left axilla. Sonographic interrogation of the area of swelling left axilla was performed. Fatty lymph node in the left axilla are noted, largest 2.3 x 1.0 x 1.2 cm. The overlying cortex of lymph node is 3 mm. No other masses are seen. IMPRESSION: Mildly prominent lymph nodes left axilla however architectural of the lymph nodes appears normal with a fatty hilum. Dictated by: Dictated on workstation # [id number]
== END ==
LOC: RAD 10:47
PROVIDERS: ATTEND Surgery
DX: R22.2 Localized swelling, mass and lump, trunk (principal); Z85.820 Personal history of malignant melanoma of skin
CPT/HCPCS: 76642

== ENCOUNTER 2021-09-15 12:50 | Outpatient (RCR) | payer MEDICARE, BC ==
[~2021-09-15 12:50] MED LIST changes: +CATHETER FLUSH 10 ML SYR IV PRN; +HEParin (CENTRAL IV FLUSH) 500 UNIT/5 ML SYR IV PRN; +NS (IVPB) 250 ML IV SCH; +PEMBROLIZUMAB 200 MG in NS (IVPB) 50 ML IV SCH
[2021-09-15 13:18] LABS: BASOPHILS # (AUTO) 0.1 10^3/uL (0.0-0.1); BASOPHILS % (AUTO) 1 % (0-10); EOSINOPHILS # (AUTO) 0.1 10^3/uL (0.0-0.3); EOSINOPHILS % (AUTO) 1 % (0-10); HEMATOCRIT 38 % (40-54); HEMOGLOBIN 12.5 g/dL (13.3-17.7); LYMPHOCYTES % (AUTO) 23 % (12-44); MEAN CORPUSCULAR HEMOGLOBIN 32 pg (25-34); MEAN CORPUSCULAR HGB CONC 33 g/dL (32-36); MEAN CORPUSCULAR VOLUME 95 fL (80-99); MEAN PLATELET VOLUME 10.3 fL (9.0-12.2); MONOCYTES # (AUTO) 0.7 10^3/uL (0.0-1.0); MONOCYTES % (AUTO) 8 % (0-12); NEUTROPHILS # (AUTO) 5.9 10^3/uL (1.8-7.8); NEUTROPHILS % (AUTO) 67 % (42-75); PLATELET COUNT 187 10^3/uL (130-400); WHITE BLOOD COUNT 8.7 10^3/uL (4.3-11.0)
[2021-09-15 13:42] LABS: ALBUMIN 3.5 GM/DL (3.2-4.5); BILIRUBIN,TOTAL 0.4 MG/DL (0.1-1.0); CALCIUM 8.6 MG/DL (8.5-10.1); CREATININE SERUM 0.8 MG/DL (0.60-1.30); POTASSIUM 3.6 MMOL/L (3.6-5.0); TOTAL PROTEIN 5.9 GM/DL (6.4-8.2)
== END 2021-09-26 | disposition home or self-care (01) ==
LOC: ONC 12:50
PROVIDERS: ATTEND Internal Medicine Hematology & Oncology
DX: C43.9 Malignant melanoma of skin, unspecified (principal); I10 Essential (primary) hypertension; I25.10 Atherosclerotic heart disease of native coronary artery without angina pectoris; E11.9 Type 2 diabetes mellitus without complications; E78.5 Hyperlipidemia, unspecified; E66.9 Obesity, unspecified
CPT/HCPCS: 80053; 83036; 85025

== ENCOUNTER 2021-10-10 02:34 | Emergency (ER) | payer MEDICARE, BC ==
[~2021-10-10] VITALS: Ht 183 cm; Wt 98.7 kg
[~2021-10-10 02:34] MED LIST changes: -CATHETER FLUSH 10 ML SYR IV PRN; -HEParin (CENTRAL IV FLUSH) 500 UNIT/5 ML SYR IV PRN; -NS (IVPB) 250 ML IV SCH; -PEMBROLIZUMAB 200 MG in NS (IVPB) 50 ML IV SCH
--- NOTE | 2021-10-10 03:14 | ED GI ---
General Chief Complaint: Abdominal/GI Problems Stated Complaint: HIGH BP 200/92,N/V Nursing Triage Note: C/O N/V SINCE 1700, CONSTIPATION, HIGH BLOOD PRESSURE. Source of Information: Patient Exam Limitations: No Limitations History of Present Illness Date Seen by Provider: Oct 10, 2021 Time Seen by Provider: 02:59 Initial Comments Patient to the ER by private conveyance with his and chief complaint that since about 5:00 last night has been having some nausea and vomiting. He at first was vomiting up food and now is just having dry heaves. He took some Pept o-Bismol which did not help. He noted his blood pressure to be high and took an extra dose of hydralazine 25 mg about an hour prior to coming. He was just in the hospital for about a week with Dr. Dempsey and Dr. Roberson his primary care provider for elevated blood pressure. They got his blood pressure under control. He is not having any chest pain abdominal pain diarrhea. He has chronic constipation. He thinks it something he ate. No one else around him has been sick with similar symptoms. The patient is under the care of Dr. Gomez, oncology for melanoma. He has had resection of the tumor and has plans to go next week for further resection. He has lymph node involvement. He is on infusions. He has been tolerating the infusions every 3 weeks very well. Allergies and Home Medications Allergies Coded Allergies: hydrocodone (Unverified Allergy, Mild, 03/22/07) amlodipine (Unverified Allergy, Unknown, 10/25/13) benazepril (Unverified Allergy, Unknown, 10/25/13) carbidopa (Unverified Allergy, Unknown, 05/18/21) codeine (Verified Allergy, Unknown, 09/02/05) levodopa (Unverified Allergy, Unknown, 05/18/21) telmisartan (Unverified Allergy, Unknown, 10/25/13) Patient Home Medication List Home Medication List Reviewed: Yes Alprazolam (Xanax) 0.25 Mg Tablet, 0.25 MG PO Q6H PRN for ANXIETY Prescribed by: JOSH ROBERSON on 03/31/21 0930 Aspirin (Aspirin EC) 81 Mg Tablet.dr 81 MG PO HS Prescribed by: JOSH ROBERSON on 03/31/21 0929 Docusate Sodium (Dulcolax Stool Softener) 100 Mg Capsule, 100 MG PO BID, (Reported) Entered as Reported by: ANA VENTURA on 05/18/21 0956 Doxazosin Mesylate (Doxazosin Mesylate) 4 Mg Tablet, 8 MG PO HS Prescribed by: JOSH ROBERSON on 03/31/21928 Furosemide (Furosemide) 20 Mg Tablet, 20 MG PO DAILY PRN, (Reported) Entered as Reported by: Adriane Hills on 06/20/21420 Hydralazine HCl (Hydralazine HCl) 50 Mg Tablet, 50 MG PO TID Prescribed by: JOSH ROBERSON on 03/31/21928 Hydralazine HCl (Hydralazine HCl) 50 Mg Tablet, 25 MG PO TID PRN for BLOOD PRESSURE Prescribed by: LUCILLE REED on 06/20/21 110 Losartan Potassium (Losartan Potassium) 50 Mg Tablet, 50 MG PO DAILY Prescribed by: JOSH ROBERSON on 03/31/21928 Metformin HCl (Metformin HCl) 500 Mg Tablet, 500 MG PO BIDAC, (Reported) Entered as Reported by: PASCUAL PEREZ on 05/19/21 0900 Ondansetron (Ondansetron Odt) 4 Mg Tab.rapdis, 4-8 MG PO Q6H PRN for NAUSEA/VOMITING Prescribed by: YVETTE TRINIDAD on 10/10/21 043 Pantoprazole Sodium (Pantoprazole Sodium) 40 Mg Tablet.dr, 40 MG PO BIDAC Prescribed by: JOSH ROBERSON on 03/31/21928 Potassium Chloride (Potassium Chloride) 10 Meq Tab.er.prt, 10 MEQ PO DAILY PRN, (Reported) Entered as Reported by: Adriane Hills on 06/20/21420 Propranolol HCl (Propranolol HCl ER) 60 Mg Cap.sa.24h, 60 MG PO BID Prescribed by: ANA VENTURA on 05/18/21 0957 Quetiapine Fumarate (Quetiapine Fumarate) 25 Mg Tablet, 12.5 MG PO HS, (Reported) Entered as Reported by: Adriane Hills on 06/20/21420 Trazodone HCl (Trazodone HCl) 50 Mg Tablet, 50 MG PO HS PRN for ANXIETY Prescribed by: JOSH ROBERSON on 03/31/21928 Ubidecarenone (Co Q-10) 100 Mg Capsule, 100 MG PO DAILY Prescribed by: JOSH ROBERSON on 03/31/21928 Review of Systems Review of Systems Constitutional: No chills, No diaphoresis EENTM: No Blurred Vision, No Double Vision Respiratory: Denies Cough, Denies Orthopnea Cardiovascular: Denies Chest Pain, Denies Lightheadedness Gastrointestinal: Denies Abdominal Pain; Constipated; Denies Diarrhea; Nausea, Poor Fluid Intake, Vomiting Genitourinary: Denies Burning, Denies Discharge Musculoskeletal: No back pain, No joint pain All Other Systems Reviewed Negative Unless Noted: Yes Past Pbqycuc-Stjmux-Pndifz Hx Patient Social History Tobacco Use?: No Substance use?: No Alcohol Use?: No Pt feels they are or have been: No Immunizations Up To Date First/Initial COVID19 Vaccinat: FEB 2020 Second COVID19 Vaccination Jose: APRIL 2020 Third COVID19 Vaccination Date: NOV 2020 Seasonal Allergies Seasonal Allergies: No Past Medical History Surgery/Hospitalization HX: hernia x3, bilat cea, turp, ortho, niddm, htn, high lipids, TIA, DELERIUM, GERD, CAD, PARKINSONS, ANXIETY, PVD Surgeries: Yes (MENISCUS REPAIR, TURP, HERNIA X3, bilateral ENDARTERECTOMY,2005) Abdominal, Cardiac, CABG, Orthopedic, Transurethral Resection, Vascular Surgery Respiratory: No Currently Using CPAP: No Currently Using BIPAP: No Cardiac: Yes (CABG X3 VESSELS;BILAT CAROTID ENDARTERECTOMY; RBBB) Chronic Edema/Swelling, Coronary Artery Disease, High Cholesterol, Hypertension, Peripheral Vascular Neurological: Yes (HYPERTENSIVE ENCEPHALOPATHY, ESSENTIAL TREMORS UPPER EXTREMITIES) Dementia, TIA Reproductive Disorders: No Sexually Transmitted Disease: No Genitourinary: Yes Benign Prostatic Hyperpl, Prostate Problems Gastrointestinal: Yes Abdominal Hernia, Gastroesophageal Reflux, Chronic Constipation Musculoskeletal: Yes (KNEE SURGERY; GENERALIZED WEAKNESS; FALLS; ) Arthritis Endocrine: Yes Diabetes, Non-Insulin dep HEENT: Yes Hearing Impairment: Hard of Hearing, Hearing Aide Right Cancer: Yes Skin, Melanoma Did You Recieve Any Treatments: Yes Psychosocial: Yes Sleep Difficulties, Anxiety Integumentary: Yes (MELANOMA ON BACK) Blood Disorders: No Family Medical History Heart Disease, Hypertension SOCIAL HISTORY: -NO SMOKING -RARE ALCOHOL USE -NO DRUG USE PAST SURGICAL HISTORY: -HERNIA REPAIR X 3 -TURP -KNEE SURGERY FOR TORN MENISCUS -BILATERAL CAROTID ENDARTERECTOMY 2006 -3-VESSEL CABG -REMOVAL OF MELANOMA OF BACK WITH LYMPH NODE BIOPSY RIGHT AXILLA 04/2021 -PORT RIGHT CHEST 04/2021 ADDITONAL PMH: -MULTIPLE EPISODES OF 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 -FREQUENT EPISODES OF DELIRIUM/INCREASED CONFUSION, HALLUCINATIONS, SPEECH ABNORMALITIES -MULTIFACTORIAL DUE TO DEMENTIA AND "SUNDOWNER'S", PARKINSON'S, HYPERTENSIVE ENCEPHALOPATHY -HAS HAD PROGRESSIVE GENERALIZED WEAKNESS AND INABILTIY TO DO ADL'S INCLUDING BEING UNABLE TO FEED HIMSELF Physical Exam Vital Signs Vital Signs - First Documented 10/10/21 02:45 Temp 36.7 Pulse 62 Resp 18 B/P (MAP) 181/80 (113) Pulse Ox 96 O2 Delivery Room Air Capillary Refill : Less Than 3 Seconds Height/Weight/BMI Height: 6'0.00" Weight: 230lbs. 0.0oz. 104.852203il; 29.00 BMI Method: General Appearance: WD/WN, mild distress HEENT: PERRL/EOMI; No pharynx normal (Dry oral mucosa without erythema, injection or exudate on the tonsils) Neck: non-tender, full range of motion, supple Respiratory: lungs clear, normal breath sounds, no respiratory distress, no accessory muscle use Cardiovascular: normal peripheral pulses, regular rate, rhythm Peripheral Pulses: 2+ Radial Pulses (R), 2+ Radial Pulses (L) Gastrointestinal: normal bowel sounds, non tender, soft Extremities: normal range of motion, normal capillary refill Neurologic/Psychiatric: alert, normal mood/affect, oriented x 3 Skin: normal color, warm/dry Progress/Results/Core Measures Results/Orders Lab Results Laboratory Tests Test 10/10/21 03:21 10/10/21 03:24 10/10/21 04:17 Range/Units White Blood Count 8.6 4.3-11.0 10^3/uL Red Blood Count 4.04 L 4.30-5.52 10^6/uL Hemoglobin 12.9 L 13.3-17.7 g/dL Hematocrit 38 L 40-54 % Mean Corpuscular Volume 93 80-99 fL Mean Corpuscular Hemoglobin 32 25-34 pg Mean Corpuscular Hemoglobin Concent 34 32-36 g/dL Red Cell Distribution Width 13.5 10.0-14.5 % Platelet Count 193 130-400 10^3/uL Mean Platelet Volume 9.7 9.0-12.2 fL Immature Granulocyte % (Auto) 1 % Neutrophils (%) (Auto) 66 42-75 % Lymphocytes (%) (Auto) 22 12-44 % Monocytes (%) (Auto) 11 0-12 % Eosinophils (%) (Auto) 1 0-10 % Basophils (%) (Auto) 0 0-10 % Neutrophils # (Auto) 5.7 1.8-7.8 10^3/uL Lymphocytes # (Auto) 1.9 1.0-4.0 10^3/uL Monocytes # (Auto) 0.9 0.0-1.0 10^3/uL Eosinophils # (Auto) 0.0 0.0-0.3 10^3/uL Basophils # (Auto) 0.0 0.0-0.1 10^3/uL Immature Granulocyte # (Auto) 0.0 0.0-0.1 10^3/uL Sodium Level 134 L 135-145 MMOL/L Potassium Level 3.7 3.6-5.0 MMOL/L Chloride Level 100 98-107 MMOL/L Carbon Dioxide Level 24 21-32 MMOL/L Anion Gap 10 5-14 MMOL/L Blood Urea Nitrogen 11 7-18 MG/DL Creatinine 0.80 0.60-1.30 MG/DL Estimat Glomerular Filtration Rate 85 BUN/Creatinine Ratio 14 Glucose Level 125 H 70-105 MG/DL Calcium Level 8.5 8.5-10.1 MG/DL Corrected Calcium 9.1 8.5-10.1 MG/DL Magnesium Level 1.7 1.6-2.4 MG/DL Total Bilirubin 0.6 0.1-1.0 MG/DL Aspartate Amino Transf (AST/SGOT) 20 5-34 U/L Alanine Aminotransferase (ALT/SGPT) 22 0-55 U/L Alkaline Phosphatase 34 L 40-136 U/L C-Reactive Protein High Sensitivity 0.07 0.00-0.50 MG/DL Total Protein 5.6 L 6.4-8.2 GM/DL Albumin 3.3 3.2-4.5 GM/DL Lipase 18 8-78 U/L SARS-CoV-2 RNA (RT-PCR) Not Detected Not Detecte Urine Color YELLOW Urine Clarity CLEAR Urine pH 8.0 5-9 Urine Specific [place] 1.010 L 1.016-1.022 Urine Protein NEGATIVE NEGATIVE Urine Glucose (UA) NEGATIVE NEGATIVE Urine Ketones NEGATIVE NEGATIVE Urine Nitrite NEGATIVE NEGATIVE Urine Bilirubin NEGATIVE NEGATIVE Urine Urobilinogen 1.0 < = 1.0 MG/DL Urine Leukocyte Esterase NEGATIVE NEGATIVE Urine RBC (Auto) NEGATIVE NEGATIVE Urine RBC NONE /HPF Urine WBC NONE /HPF Urine Squamous Epithelial Cells RARE /HPF Urine Crystals NONE /LPF Urine Bacteria NEGATIVE /HPF Urine Casts NONE /LPF Urine Mucus NEGATIVE /LPF Urine Culture Indicated NO My Orders Orders - YVETTE TRINIDAD Ed Iv/Invasive Line Start (10/10/21 03:10) Lactated Ringers (Lr 1000 Ml Iv Solution (10/10/21 03:15) Cbc With Automated Diff (10/10/21 03:10) Comprehensive Metabolic Panel (10/10/21 03:10) Hs C Reactive Protein (10/10/21 03:10) Lipase (10/10/21 03:10) Ua Culture If Indicated (10/10/21 03:10) Ondansetron Injection (Zofran Injectio (10/10/21 03:15) Covid 19 Inhouse Test (10/10/21 03:14) Magnesium (10/10/21 03:14) Promethazine Tablet (Phenergan Tablet) (10/10/21 04:45) Diphenhydramine Tablet (Benadryl Tablet) (10/10/21 04:45) Antacid Suspension (Mylanta Suspension (10/10/21 04:45) Pantoprazole Injection (Protonix Injecti (10/10/21 04:45) Medications Given in ED Current Medications Medications Dose Ordered Sig/Les Route Start Time Stop Time Status Last Admin Dose Admin Al Hydrox/Mg Hydrox/Simethicone 30 ml ONCE ONCE PO 10/10/21 04:45 10/10/21 04:46 DC 10/10/21 04:43 30 ML Diphenhydramine HCl 12.5 mg ONCE ONCE PO 10/10/21 04:45 10/10/21 04:46 DC 10/10/21 04:43 12.5 MG Lactated Ringer's 1,000 ml @ 0 mls/hr Q0M ONCE IV 10/10/21 03:15 10/10/21 03:16 DC 10/10/21 03:22 0 MLS/HR Ondansetron HCl 8 mg ONCE ONCE IVP 10/10/21 03:15 10/10/21 03:16 DC 10/10/21 03:22 8 MG Pantoprazole 40 mg ONCE ONCE IV 10/10/21 04:45 10/10/21 04:46 DC 10/10/21 04:43 40 MG Promethazine HCl 25 mg ONCE ONCE PO 10/10/21 04:45 10/10/21 04:46 DC 10/10/21 04:43 25 MG Vital Signs/I&O 10/10/21 02:45 Temp 36.7 Pulse 62 Resp 18 B/P (MAP) 181/80 (113) Pulse Ox 96 O2 Delivery Room Air Blood Pressure Mean: 113 Progress Progress Note #1: Time: 03:17 Progress Note 8 mg Zofran IV, a liter of lactated Ringer's and check some labs including a CRP. Suspect he has gastroenteritis versus a foodborne illness. Vital signs are aseptic. His blood pressure is acceptable at 178/89. We can give some IV hydralazine if his blood pressure spikes back up. COVID-19 swab. Progress Note #2: Time: 04:35 Progress Note Patient's nausea is improved but he still has some nausea. He also has some acid reflux burning sensation. We will give him some Protonix, Mylanta and a little Phenergan with Benadryl 12.5 mg. His fluids are three fourths the way done. He states he is feeling a little better. Blood pressure got down to the 130s systolic. While the provider was interviewing him his blood pressure shot back up to 180 systolic. Certainly there is some component of a whitecoat syndrome. Departure Impression Primary Impression: Gastroenteritis Additional Impression: Labile hypertension Disposition: 01 HOME, SELF-CARE Condition: Improved Departure-Patient Inst. Decision time for Depature: 04:38 Referrals: JOSH ROBERSON MD (PCP/Family) Primary Care Physician Patient Instructions: High Blood Pressure ED, LOCAL PHYSICIAN LIST, Viral Gastroenteritis, Adult (DC) Add. Discharge Instructions: For your acid reflux symptoms you can use omeprazole or pantoprazole/Protonix 40 mg a day to help reduce acid production. You may also use Tums, Mylanta, Maalox, Rolaids etc. for breakthrough burning symptoms. Continue taking your blood pressure medications as prescribed. If you have nausea then you can take 1 to 2 tablets of Zofran under the tongue every 6 hours as needed. All discharge instructions reviewed with patient and/or family. Voiced understanding. Scripts Ondansetron (Ondansetron Odt) 4 Mg Tab.rapdis 4-8 MG PO Q6H PRN for NAUSEA/VOMITING, #20 TAB 0 Refills Prov: YVETTE TRINIDAD 10/10/21 YVETTE TRINIDAD Oct 10, 2021 03:14
[2021-10-10] MEDS ORDERED: LACTATED RINGERS 1,000 ML IV ONE (03:15)
[2021-10-10] MEDS ORDERED: ONDANSETRON 4 MG/2 ML (SDV) Z0FRAN IVP ONE (03:15)
[2021-10-10 03:35] LABS: BASOPHILS % (AUTO) 0 % (0-10); EOSINOPHILS % (AUTO) 1 % (0-10); HEMATOCRIT 38 % (40-54); HEMOGLOBIN 12.9 g/dL (13.3-17.7); LYMPHOCYTES # (AUTO) 1.9 10^3/uL (1.0-4.0); LYMPHOCYTES % (AUTO) 22 % (12-44); MEAN CORPUSCULAR HEMOGLOBIN 32 pg (25-34); MEAN CORPUSCULAR HGB CONC 34 g/dL (32-36); MEAN CORPUSCULAR VOLUME 93 fL (80-99); MEAN PLATELET VOLUME 9.7 fL (9.0-12.2); MONOCYTES # (AUTO) 0.9 10^3/uL (0.0-1.0); MONOCYTES % (AUTO) 11 % (0-12); NEUTROPHILS # (AUTO) 5.7 10^3/uL (1.8-7.8); NEUTROPHILS % (AUTO) 66 % (42-75); PLATELET COUNT 193 10^3/uL (130-400); WHITE BLOOD COUNT 8.6 10^3/uL (4.3-11.0)
[2021-10-10 03:43] LABS: ALBUMIN 3.3 GM/DL (3.2-4.5); POTASSIUM 3.7 MMOL/L (3.6-5.0)
[2021-10-10 03:45] LABS: CALCIUM 8.5 MG/DL (8.5-10.1)
[2021-10-10 03:46] LABS: TOTAL PROTEIN 5.6 GM/DL (6.4-8.2)
[2021-10-10 03:48] LABS: BILIRUBIN,TOTAL 0.6 MG/DL (0.1-1.0)
[2021-10-10 03:50] LABS: CREATININE SERUM 0.8 MG/DL (0.60-1.30)
[2021-10-10 03:52] LABS: MAGNESIUM 1.7 MG/DL (1.6-2.4)
[2021-10-10 04:24] LABS: BILIRUBIN,URINE NEGATIVE (NEGATIVE); CLARITY,URINE CLEAR; COLOR,URINE YELLOW; GLUCOSE, URINE (UA) NEGATIVE (NEGATIVE); KETONES,URINE NEGATIVE (NEGATIVE); LEUKOCYTE ESTERASE ,URINE NEGATIVE (NEGATIVE); NITRITE,URINE NEGATIVE (NEGATIVE); PROTEIN,URINE NEGATIVE (NEGATIVE)
[2021-10-10 04:31] LABS: BACTERIA,URINE NEGATIVE /HPF; SQUAMOUS EPITHELIAL CELL,UR RARE /HPF
[2021-10-10] MEDS ORDERED: ONDA4TAB11 PO (04:39)
[2021-10-10] MEDS ORDERED: PROMETHAZINE 25 MG (PHENERGAN) TAB PO ONE (04:45)
[2021-10-10] MEDS ORDERED: diphenhydrAMINE 25 MG TAB (BENADRYL) PO ONE (04:45)
[2021-10-10] MEDS ORDERED: PANTOPRAZOLE 40 MG (PROTONIX) VIAL IV ONE (04:45)
[2021-10-10] MEDS ORDERED: ANTACID SUSP 30 ML UDC (MYLANTA) PO ONE (04:45)
[2021-10-10 05:18] VITALS: BP 157/81
== END 2021-10-10 05:21 | disposition home or self-care (01) ==
LOC: EDUNIT# 02:34 → ER 02:36
DX: K52.9 Noninfective gastroenteritis and colitis, unspecified (principal); I10 Essential (primary) hypertension; Z20.822 Contact with and (suspected) exposure to COVID-19
CPT/HCPCS: 36415; 80053; 81000; 83690; 83735; 85025; 86141; 87636

== ENCOUNTER → 2021-10-27 | Outpatient (RCR) | payer MEDICARE, BC ==
[2021-10-06 13:43] LABS: BASOPHILS % (AUTO) 1 % (0-10); EOSINOPHILS % (AUTO) 1 % (0-10); HEMATOCRIT 37 % (40-54); HEMOGLOBIN 12.6 g/dL (13.3-17.7); LYMPHOCYTES # (AUTO) 1.9 10^3/uL (1.0-4.0); LYMPHOCYTES % (AUTO) 22 % (12-44); MEAN CORPUSCULAR HEMOGLOBIN 32 pg (25-34); MEAN CORPUSCULAR HGB CONC 34 g/dL (32-36); MEAN CORPUSCULAR VOLUME 95 fL (80-99); MEAN PLATELET VOLUME 9.8 fL (9.0-12.2); MONOCYTES # (AUTO) 0.9 10^3/uL (0.0-1.0); MONOCYTES % (AUTO) 10 % (0-12); NEUTROPHILS # (AUTO) 5.7 10^3/uL (1.8-7.8); NEUTROPHILS % (AUTO) 66 % (42-75); PLATELET COUNT 186 10^3/uL (130-400); WHITE BLOOD COUNT 8.6 10^3/uL (4.3-11.0)
[2021-10-06 14:03] LABS: ALBUMIN 3.3 GM/DL (3.2-4.5); BILIRUBIN,TOTAL 0.5 MG/DL (0.1-1.0); CALCIUM 8.6 MG/DL (8.5-10.1); CREATININE SERUM 0.79 MG/DL (0.60-1.30); POTASSIUM 4.5 MMOL/L (3.6-5.0); TOTAL PROTEIN 5.5 GM/DL (6.4-8.2)
[2021-10-25 13:28] LABS: BASOPHILS % (AUTO) 0 % (0-10); EOSINOPHILS % (AUTO) 0 % (0-10); HEMATOCRIT 43 % (40-54); HEMOGLOBIN 14.8 g/dL (13.3-17.7); LYMPHOCYTES # (AUTO) 2.1 10^3/uL (1.0-4.0); LYMPHOCYTES % (AUTO) 18 % (12-44); MEAN CORPUSCULAR HEMOGLOBIN 32 pg (25-34); MEAN CORPUSCULAR HGB CONC 35 g/dL (32-36); MEAN CORPUSCULAR VOLUME 93 fL (80-99); MEAN PLATELET VOLUME 9.8 fL (9.0-12.2); MONOCYTES # (AUTO) 1.3 10^3/uL (0.0-1.0); MONOCYTES % (AUTO) 11 % (0-12); NEUTROPHILS % (AUTO) 69 % (42-75); PLATELET COUNT 273 10^3/uL (130-400); WHITE BLOOD COUNT 11.5 10^3/uL (4.3-11.0)
[2021-10-25 13:39] LABS: ALBUMIN 3.6 GM/DL (3.2-4.5); BILIRUBIN,TOTAL 0.6 MG/DL (0.1-1.0); CREATININE SERUM 0.93 MG/DL (0.60-1.30); POTASSIUM 4.7 MMOL/L (3.6-5.0); TOTAL PROTEIN 6.3 GM/DL (6.4-8.2)
[~2021-10-27] MED LIST changes: +BISA10SU8 PR; -CARB1TAB19 PO; +CARB1TAB32 PO; +HEParin (CENTRAL IV FLUSH) 500 UNIT/5 ML SYR IV PRN; +LACT10SO27 PO; +NS (IVPB) 250 ML IV SCH; +NS IV 500 ML 500 ML ONE; +ONDA4TAB11 PO; +PEMBROLIZUMAB 200 MG in NS (IVPB) 50 ML IV SCH; +POTA-177 PO; -POTA10TA37 PO
== END | disposition home or self-care (01) ==
LOC: ONC 10-06 12:48
PROVIDERS: ATTEND Internal Medicine Hematology & Oncology
DX: Z51.11 Encounter for antineoplastic chemotherapy (principal); Z45.2 Encounter for adjustment and management of vascular access device; C43.9 Malignant melanoma of skin, unspecified; I10 Essential (primary) hypertension; I25.10 Atherosclerotic heart disease of native coronary artery without angina pectoris; E11.9 Type 2 diabetes mellitus without complications; E78.5 Hyperlipidemia, unspecified; E66.9 Obesity, unspecified
CPT/HCPCS: 36591; 80053; 85025; 96360; 96413; 96523

== ENCOUNTER 2021-10-28 18:00 | Observation (INO) | payer MEDICARE, BC ==
[~2021-10-28] VITALS: Ht 182.8 cm; Wt 96.2 kg
[~2021-10-28 18:00] MED LIST changes: -BISA10SU8 PR; -HEParin (CENTRAL IV FLUSH) 500 UNIT/5 ML SYR IV PRN; -LACT10SO27 PO; -NS (IVPB) 250 ML IV SCH; -NS IV 500 ML 500 ML ONE; -PEMBROLIZUMAB 200 MG in NS (IVPB) 50 ML IV SCH
[2021-10-28] MEDS ORDERED: NS IV 1000 ML 1,000 ML IV ONE (19:45)
--- NOTE | 2021-10-28 19:56 | ED GI ---
General Stated Complaint: CONSTIPATED Source of Information: Patient Exam Limitations: No Limitations History of Present Illness Date Seen by Provider: Oct 28, 2021 Time Seen by Provider: 19:23 Initial Comments Here with report of concern of severe constipation or bowel obstruction. He has had difficult times with constipation all his life but has been worse recently. He is under therapy for melanoma and apparently has had some dehydration issues. Seen his cancer doctor yesterday and had a liter of fluid apparently. States he felt better yesterday evening and actually ate a little bit but then this morning he is not having a normal bowel movement and is not passing gas and feels like every time he tries to eat or drink anything its not going down. Apparently they called his doctor's office and he was instructed to come in for concerns of bowel obstruction. He has had severe constipation previously. They have tried Ex-Lax, fleets suppository and he has started on Senokot now. He also had fleets enema today as well. Reports he was able to finally put out a very small stool but still has all the other symptoms remaining concerning for obstruction. Follows with Dr. Da Gomez Timing/Duration: 1 Week, Changing Over Time, Getting Worse Severity/Quality: Mild, Moderate, Aching Location: Generalized Abdomen, Other (Rectum) Radiation: No Radiation Modifying Factors: Improves With Defecating; Worsens With Eating Associated Symptoms: No Back Pain, No Chest Pain, No Fever/Chills, No Nausea/Vomiting, No Swelling/Mass in Abdomen Allergies and Home Medications Allergies Coded Allergies: hydrocodone (Unverified Allergy, Mild, 03/22/07) amlodipine (Unverified Allergy, Unknown, 10/25/13) benazepril (Unverified Allergy, Unknown, 10/25/13) carbidopa (Unverified Allergy, Unknown, 05/18/21) codeine (Verified Allergy, Unknown, 09/02/05) levodopa (Unverified Allergy, Unknown, 05/18/21) telmisartan (Unverified Allergy, Unknown, 10/25/13) Patient Home Medication List Home Medication List Reviewed: Yes Alprazolam (Xanax) 0.25 Mg Tablet, 0.25 MG PO Q6H PRN for ANXIETY Prescribed by: JOSH ROBERSON on 03/31/21 0930 Aspirin (Aspirin EC) 81 Mg Tablet.dr, 81 MG PO HS Prescribed by: JOSH ROBERSON on 03/31/21928 Docusate Sodium (Dulcolax Stool Softener) 100 Mg Capsule, 100 MG PO BID, ( Reported) Entered as Reported by: ANA VENTURA on 05/18/21 0956 Doxazosin Mesylate (Doxazosin Mesylate) 4 Mg Tablet, 8 MG PO HS Prescribed by: JOSH ROBERSON on 03/31/21928 Furosemide (Furosemide) 20 Mg Tablet, 20 MG PO DAILY PRN, (Reported) Entered as Reported by: Adriane Hills on 06/20/21420 Hydralazine HCl (Hydralazine HCl) 50 Mg Tablet, 50 MG PO TID Prescribed by: JOSH ROBERSON on 03/31/21928 Hydralazine HCl (Hydralazine HCl) 50 Mg Tablet, 25 MG PO TID PRN for BLOOD PRESSURE Prescribed by: LUCILLE REED on 06/20/21 110 Losartan Potassium (Losartan Potassium) 50 Mg Tablet, 50 MG PO DAILY Prescribed by: JOSH ROBERSON on 03/31/21928 Metformin HCl (Metformin HCl) 500 Mg Tablet, 500 MG PO BIDAC, (Reported) Entered as Reported by: PASCUAL PEREZ on 05/19/21 0900 Ondansetron (Ondansetron Odt) 4 Mg Tab.rapdis, 4-8 MG PO Q6H PRN for NAUSEA/VOMITING Prescribed by: YVETTE TRINIDAD on 10/10/21 043 Pantoprazole Sodium (Pantoprazole Sodium) 40 Mg Tablet.dr, 40 MG PO BIDAC Prescribed by: JOSH ROBERSON on 03/31/21928 Potassium Chloride (Potassium Chloride) 10 Meq Tab.er.prt, 10 MEQ PO DAILY PRN, (Reported) Entered as Reported by: Adriane Hills on 06/20/21420 Propranolol HCl (Propranolol HCl ER) 60 Mg Cap.sa.24h, 60 MG PO BID Prescribed by: ANA VENTURA on 05/18/21 09 Quetiapine Fumarate (Quetiapine Fumarate) 25 Mg Tablet, 12.5 MG PO HS, (Reported) Entered as Reported by: Adriane Hills on 06/20/21420 Trazodone HCl (Trazodone HCl) 50 Mg Tablet, 50 MG PO HS PRN for ANXIETY Prescribed by: JOSH ROBERSON on 03/31/21928 Ubidecarenone (Co Q-10) 100 Mg Capsule, 100 MG PO DAILY Prescribed by: JOSH ROBERSON on 03/31/21928 Review of Systems Review of Systems Constitutional: see HPI; No chills, No fever EENTM: No Nose Congestion, No Throat Pain Respiratory: Denies Cough, Denies Shortness of Air Cardiovascular: No Symptoms Reported Gastrointestinal: Abdominal Pain, Constipated; Denies Diarrhea; Nausea; Denies Vomiting Genitourinary: No Symptoms Reported Musculoskeletal: No back pain; muscle weakness (Chronic); No neck pain All Other Systems Reviewed Negative Unless Noted: Yes Past Lwugtod-Bjnqen-Mvgbfh Hx Patient Social History Tobacco Use?: No Substance type: Hallucinogens Alcohol Use?: No Immunizations Up To Date First/Initial COVID19 Vaccinat: FEB 2020 Second COVID19 Vaccination Jose: APRIL 2020 Third COVID19 Vaccination Date: NOV 2020 Seasonal Allergies Seasonal Allergies: No Past Medical History Surgery/Hospitalization HX: hernia x3, bilat cea, turp, ortho, niddm, htn, high lipids, TIA, DELERIUM, GERD, CAD, PARKINSONS, ANXIETY, PVD Surgeries: Yes (MENISCUS REPAIR, TURP, HERNIA X3, bilateral EN DARTERECTOMY,2005) Abdominal, Cardiac, CABG, Orthopedic, Transurethral Resection, Vascular Surgery Respiratory: No Currently Using CPAP: No Currently Using BIPAP: No Cardiac: Yes (CABG X3 VESSELS;BILAT CAROTID ENDARTERECTOMY; RBBB) Chronic Edema/Swelling, Coronary Artery Disease, High Cholesterol, Hypertension, Peripheral Vascular Neurological: Yes (HYPERTENSIVE ENCEPHALOPATHY, ESSENTIAL TREMORS UPPER EXTREMITIES) Dementia, TIA Reproductive Disorders: No Sexually Transmitted Disease: No Genitourinary: Yes Benign Prostatic Hyperpl, Prostate Problems Gastrointestinal: Yes Abdominal Hernia, Gastroesophageal Reflux, Chronic Constipation Musculoskeletal: Yes (KNEE SURGERY; GENERALIZED WEAKNESS; FALLS; ) Arthritis Endocrine: Yes Diabetes, Non-Insulin dep HEENT: Yes Hearing Impairment: Hard of Hearing, Hearing Aide Right Cancer: Yes Skin, Melanoma Did You Recieve Any Treatments: Yes Psychosocial: Yes Sleep Difficulties, Anxiety Integumentary: Yes (MELANOMA ON BACK) Blood Disorders: No Family Medical History Reviewed Nursing Family Hx Heart Disease, Hypertension SOCIAL HISTORY: -NO SMOKING -RARE ALCOHOL USE -NO DRUG USE PAST SURGICAL HISTORY: -HERNIA REPAIR X 3 -TURP -KNEE SURGERY FOR TORN MENISCUS -BILATERAL CAROTID ENDARTERECTOMY 2006 -3-VESSEL CABG -REMOVAL OF MELANOMA OF BACK WITH LYMPH NODE BIOPSY RIGHT AXILLA 04/2021 -PORT RIGHT CHEST 04/2021 ADDITONAL PMH: -MULTIPLE EPISODES OF 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 0.0oz. 104.457359dp; 29.00 BMI Method: General Appearance: WD/WN, no apparent distress Neck: full range of motion, supple Respiratory: lungs clear, normal breath sounds Cardiovascular: regular rate, rhythm, no murmur Gastrointestinal: non tender, soft, no pulsatile mass, abnormal bowel sounds (Decreased); No guarding, No rebound Extremities: non-tender, normal inspection Back: normal inspection, no CVA tenderness, no vertebral tenderness Neurologic/Psychiatric: alert, oriented x 3 Skin: normal color, warm/dry Progress/Results/Core Measures Results/Orders Lab Results Laboratory Tests Test 10/28/21 20:02 10/28/21 20:16 Range/Units Sodium Level 126 L 135-145 MMOL/L Potassium Level 5.9 H 3.6-5.0 MMOL/L Chloride Level 95 L 98-107 MMOL/L Carbon Dioxide Level 22 21-32 MMOL/L Anion Gap 9 5-14 MMOL/L Blood Urea Nitrogen 10 7-18 MG/DL Creatinine 0.84 0.60-1.30 MG/DL Estimat Glomerular Filtration Rate 84 BUN/Creatinine Ratio 12 Glucose Level 107 H 70-105 MG/DL Calcium Level 8.4 L 8.5-10.1 MG/DL Corrected Calcium 9.0 8.5-10.1 MG/DL Total Bilirubin 0.6 0.1-1.0 MG/DL Aspartate Amino Transf (AST/SGOT) 53 H 5-34 U/L Alanine Aminotransferase (ALT/SGPT) 23 0-55 U/L Alkaline Phosphatase 37 L 40-136 U/L C-Reactive Protein High Sensitivity 0.07 0.00-0.50 MG/DL Total Protein 6.5 6.4-8.2 GM/DL Albumin 3.3 3.2-4.5 GM/DL White Blood Count 15.4 H 4.3-11.0 10^3/uL Red Blood Count 4.54 4.30-5.52 10^6/uL Hemoglobin 14.5 13.3-17.7 g/dL Hematocrit 42 40-54 % Mean Corpuscular Volume 92 80-99 fL Mean Corpuscular Hemoglobin 32 25-34 pg Mean Corpuscular Hemoglobin Concent 35 32-36 g/dL Red Cell Distribution Width 13.1 10.0-14.5 % Platelet Count 274 130-400 10^3/uL Mean Platelet Volume 9.5 9.0-12.2 fL Immature Granulocyte % (Auto) 1 % Neutrophils (%) (Auto) 78 H 42-75 % Lymphocytes (%) (Auto) 12 12-44 % Monocytes (%) (Auto) 10 0-12 % Eosinophils (%) (Auto) 0 0-10 % Basophils (%) (Auto) 0 0-10 % Neutrophils # (Auto) 11.9 H 1.8-7.8 10^3/uL Lymphocytes # (Auto) 1.8 1.0-4.0 10^3/uL Monocytes # (Auto) 1.5 H 0.0-1.0 10^3/uL Eosinophils # (Auto) 0.0 0.0-0.3 10^3/uL Basophils # (Auto) 0.1 0.0-0.1 10^3/uL Immature Granulocyte # (Auto) 0.1 0.0-0.1 10^3/uL Neutrophils % (Manual) 79 % Lymphocytes % (Manual) 13 % Monocytes % (Manual) 8 % Blood Morphology Comment NORMAL My Orders Orders - NAM TINAJERO MD Cbc With Automated Diff (10/28/21 19:36) Comprehensive Metabolic Panel (10/28/21 19:36) Hs C Reactive Protein (10/28/21 19:36) Ed Iv/Invasive Line Start (10/28/21 19:36) Ns Iv 1000 Ml (Sodium Chloride 0.9%) (10/28/21 19:45) Ct Abdomen/Pelvis W (10/28/21 19:43) Iohexol Injection (Omnipaque 350 Mg/Ml 1 (10/28/21 20:30) Ns (Ivpb) (Sodium Chloride 0.9% Ivpb Bag (10/28/21 20:30) Manual Differential (10/28/21 20:16) Medications Given in ED Current Medications Medications Dose Ordered Sig/Les Route Start Time Stop Time Status Last Admin Dose Admin Iohexol 100 ml ONCE ONCE IV 10/28/21 20:30 10/28/21 20:31 DC 10/28/21 20:48 80 ML Sodium Chloride 100 ml ONCE ONCE IV 10/28/21 20:30 10/28/21 20:31 DC 10/28/21 20:48 80 ML Sodium Chloride 1,000 ml @ 0 mls/hr Q0M ONCE IV 10/28/21 19:45 10/28/21 19:46 DC 10/28/21 20:08 0 MLS/HR Vital Signs/I&O 10/28/21 19:20 Temp 36.8 Pulse 60 Resp 18 B/P (MAP) 170/84 (112) Pulse Ox 97 O2 Delivery Room Air Progress Progress Note : Progress Note Seen and evaluated. IV, labs and CT abdomen pelvis ordered due to concerns for bowel obstruction given that he is not able to eat or drink now. Records review shows normal chemistries and normal creatinine. CT abdomen pelvis done in July of this year did not show any intra-abdominal pathology. Monitor patient. 03/30/2001: Labs reviewed and are not normal. He does have low sodium and chloride as well as elevated potassium but normal creatinine. CT results pending but nothing obvious for obstruction on preliminary look by me. See full report for details. I did discuss the case with Dr. Roberson given his lab abnormality. She is excepted the patient for admission, observation status. She will do soapsuds enema x1 and repeat x1 as well as lactulose 15 mL p.o. x1 which was all ordered. Bridge orders written by me and she will follow in the morning. This was discussed with patient and family who agree with plan. 2155: CT report resulted. This was discussed with Dr. Roberson. Diagnostic Imaging Diagonstic Imaging: CT Plain Films/CT/US/NM/MRI: abdomen, pelvis Comments [facility] [place], [place] NAME: ARIANNE BAUER [facility] REC#: [id number] PT STATUS: REG ER : 1935 PHYSICIAN: NAM TINAJERO MD ADMIT DATE: 10/28/21/ER Draft Date of Exam:10/28/21 CT ABDOMEN/PELVIS W PROCEDURE: CT abdomen and pelvis with contrast. TECHNIQUE: Multiple contiguous axial images were obtained through the abdomen and pelvis after administration of intravenous contrast. Auto Exposure Controls were utilized during the CT exam to meet ALARA standards for radiation dose reduction. All CT scans use one or more of the following dose optimizing techniques: automated exposure control, MA and/or KvP adjustment based on patient size and exam type or iterative reconstruction. DATE: October 28, 2021. COMPARISON: CT abdomen and pelvis August 04, 2021. INDICATION: 86-year-old male, constipation. Abdominal pain. History of melanoma. FINDINGS: There is minimal dependent atelectasis or scarring in the right and left lower lobes. The heart is not enlarged. There is no pericardial effusion. The liver is unremarkable in size and contour. There is mild intrahepatic bile duct dilation. The main, right and left portal veins are patent. There is cholelithiasis without evidence of acute cholecystitis. The common bile duct is not abnormally dilated. The mild intrahepatic bile duct dilation appears unchanged since comparison exam. The main pancreatic duct is not abnormally dilated. Unremarkable appearance of the pancreas. The spleen is normal in size. The adrenal glands are unremarkable. Unremarkable appearance of the renal parenchyma. The urinary collecting systems are not distended. There is no identified renal or ureteral stone. Urinary bladder is unremarkable. There are postoperative changes of the anterior abdominal wall likely reflecting prior hernia repair. There is no evidence of a residual or recurrent hernia. There is swirling of bowel structures in vasculature in the right lower quadrant. There is no abnormal distention of the intestinal tract. There is no free intraperitoneal air. There is mucosal enhancement of the distal esophagus. There is questionable wall thickening of the stomach. There does appear to be mucosal enhancement at the level of the second portion of duodenum on axial image 47 and adjacent sequential images. There is no identified free intraperitoneal air. There is no drainable fluid collection. There is no free fluid in the abdomen or pelvis. There are atherosclerotic calcifications. There is no identified abnormally enlarged lymph node in the abdomen or pelvis which meets CT size criteria for adenopathy. There are multilevel degenerative changes of the spine. There are median sternotomy wires. There is no identified acute bony abnormality. IMPRESSION: CT abdomen and pelvis: 1. Wall mucosal enhancement of the distal esophagus as well as potentially involving the stomach. This may relate to an esophagitis and gastritis. Malignancy would also be a differential consideration. 2. Additional mucosal enhancement at the level of the proximal duodenum which may reflect a nonspecific duodenitis. 3. Swirling of bowel structures in the right lower quadrant without abnormal intestinal distention. This potentially could relate to an internal hernia or volvulus type process although there is no evidence of obstruction. Dictated on workstation # [id number] Dict: 10/28/212118 Trans: 10/28/212136 [facility] [id number] Interpreted by: ORIN SANDY MD Electronically signed by: Departure Communication (Admissions) Time/Spoke to Admitting Phy: 21:02 Impression Primary Impression: Constipation Qualified Codes: K59.00 - Constipation, unspecified Additional Impressions: Hyponatremia Hyperkalemia Disposition: ADMITTED INPATIENT Condition: Stable Admissions Decision to Admit Reason: Admit from ER (General) Decision to Admit/Date: Oct 28, 2021 Time/Decision to Admit Time: 21:02 Departure-Patient Inst. Referrals: JOSH ROBERSON MD (PCP/Family) Primary Care Physician NAM TINAJERO MD Oct 28, 2021 19:56
[2021-10-28] MEDS ORDERED: IOHEXOL 350 MG/ML 100 ML (OMNIPAQUE 350) VIAL IV ONE (20:30)
[2021-10-28] MEDS ORDERED: NS 100 ML (IVPB) BAG IV ONE (20:30)
[2021-10-28 20:33] LABS: ALBUMIN 3.3 GM/DL (3.2-4.5); BILIRUBIN,TOTAL 0.6 MG/DL (0.1-1.0); CALCIUM 8.4 MG/DL (8.5-10.1); CREATININE SERUM 0.84 MG/DL (0.60-1.30); POTASSIUM 5.9 MMOL/L (3.6-5.0); TOTAL PROTEIN 6.5 GM/DL (6.4-8.2)
[2021-10-28 20:47] LABS: BASOPHILS # (AUTO) 0.1 10^3/uL (0.0-0.1); BASOPHILS % (AUTO) 0 % (0-10); EOSINOPHILS % (AUTO) 0 % (0-10); HEMATOCRIT 42 % (40-54); HEMOGLOBIN 14.5 g/dL (13.3-17.7); LYMPHOCYTES # (AUTO) 1.8 10^3/uL (1.0-4.0); LYMPHOCYTES % (AUTO) 12 % (12-44); MEAN CORPUSCULAR HEMOGLOBIN 32 pg (25-34); MEAN CORPUSCULAR HGB CONC 35 g/dL (32-36); MEAN CORPUSCULAR VOLUME 92 fL (80-99); MEAN PLATELET VOLUME 9.5 fL (9.0-12.2); MONOCYTES # (AUTO) 1.5 10^3/uL (0.0-1.0); MONOCYTES % (AUTO) 10 % (0-12); NEUTROPHILS # (AUTO) 11.9 10^3/uL (1.8-7.8); NEUTROPHILS % (AUTO) 78 % (42-75); PLATELET COUNT 274 10^3/uL (130-400); WHITE BLOOD COUNT 15.4 10^3/uL (4.3-11.0)
[2021-10-28 21:13] LABS: LYMPHOCYTES % (MANUAL) 13 %; MONOCYTES % (MANUAL) 8 %; NEUTROPHILS % (MANUAL) 79 %; RBC MORPH NORMAL
--- NOTE | 2021-10-28 21:38 | Diagnostic Imaging Report ---
PROCEDURE: CT abdomen and pelvis with contrast. TECHNIQUE: Multiple contiguous axial images were obtained through the abdomen and pelvis after administration of intravenous contrast. Auto Exposure Controls were utilized during the CT exam to meet ALARA standards for radiation dose reduction. All CT scans use one or more of the following dose optimizing techniques: automated exposure control, MA and/or KvP adjustment based on patient size and exam type or iterative reconstruction. DATE: October 28, 2021. COMPARISON: CT abdomen and pelvis August 04, 2021. INDICATION: 86-year-old male, constipation. Abdominal pain. History of melanoma. FINDINGS: There is minimal dependent atelectasis or scarring in the right and left lower lobes. The heart is not enlarged. There is no pericardial effusion. The liver is unremarkable in size and contour. There is mild intrahepatic bile duct dilation. The main, right and left portal veins are patent. There is cholelithiasis without evidence of acute cholecystitis. The common bile duct is not abnormally dilated. The mild intrahepatic bile duct dilation appears unchanged since comparison exam. The main pancreatic duct is not abnormally dilated. Unremarkable appearance of the pancreas. The spleen is normal in size. The adrenal glands are unremarkable. Unremarkable appearance of the renal parenchyma. The urinary collecting systems are not distended. There is no identified renal or ureteral stone. Urinary bladder is unremarkable. There are postoperative changes of the anterior abdominal wall likely reflecting prior hernia repair. There is no evidence of a residual or recurrent hernia. There is swirling of bowel structures in vasculature in the right lower quadrant. There is no abnormal distention of the intestinal tract. There is no free intraperitoneal air. There is mucosal enhancement of the distal esophagus. There is questionable wall thickening of the stomach. There does appear to be mucosal enhancement at the level of the second portion of duodenum on axial image 47 and adjacent sequential images. There is no identified free intraperitoneal air. There is no drainable fluid collection. There is no free fluid in the abdomen or pelvis. There are atherosclerotic calcifications. There is no identified abnormally enlarged lymph node in the abdomen or pelvis which meets CT size criteria for adenopathy. There are multilevel degenerative changes of the spine. There are median sternotomy wires. There is no identified acute bony abnormality. IMPRESSION: CT abdomen and pelvis: 1. Wall mucosal enhancement of the distal esophagus as well as potentially involving the stomach. This may relate to an esophagitis and gastritis. Malignancy would also be a differential consideration. 2. Additional mucosal enhancement at the level of the proximal duodenum which may reflect a nonspecific duodenitis. 3. Swirling of bowel structures in the right lower quadrant without abnormal intestinal distention. This potentially could relate to an internal hernia or volvulus type process although there is no evidence of obstruction. Dictated by: Dictated on workstation # [id number]
[2021-10-28] MEDS ORDERED: hydrALAZINE (APRESOLINE) 25 MG TAB PO ONE (23:00)
[2021-10-28 23:45] VITALS: BP 202/109
[2021-10-29] MEDS ORDERED: PROPRANOLOL 20 MG (INDERAL) TABLET PO ONE
[2021-10-29] MEDS ORDERED: ACETAMINOPHEN 500 MG TAB (TYLENOL) PO ONE
[2021-10-29] MEDS ORDERED: LACTULOSE SYRUP 10GM/15ML (ENULOSE) 30ML UDC PO ONE (00:15)
[2021-10-29] MEDS ORDERED: ACETAMINOPHEN 500 MG TAB (TYLENOL) ONE (03:42)
[2021-10-29] MEDS ORDERED: diphenhydrAMINE 25 MG TAB (BENADRYL) PO ONE ×2 (03:42)
[2021-10-29] MEDS ORDERED: PROPRANOLOL 20 MG (INDERAL) TABLET ONE (03:44)
[2021-10-29] MEDS ORDERED: LACTULOSE SYRUP 10GM/15ML (ENULOSE) 30ML UDC ONE (03:44)
[2021-10-29] MEDS: NS IV 1000 ML 1,000 ML IV SCH ×2 (03:48→09:17)
[2021-10-29 04:41] VITALS: BP 113/68
[2021-10-29] MEDS: hydrALAZINE (APRESOLINE) 25 MG TAB PO SCH ×2 (06:00→14:07)
[2021-10-29 06:39] LABS: BASOPHILS # (AUTO) 0.1 10^3/uL (0.0-0.1); BASOPHILS % (AUTO) 0 % (0-10); EOSINOPHILS % (AUTO) 0 % (0-10); HEMATOCRIT 41 % (40-54); HEMOGLOBIN 14.1 g/dL (13.3-17.7); LYMPHOCYTES # (AUTO) 2.4 10^3/uL (1.0-4.0); LYMPHOCYTES % (AUTO) 19 % (12-44); MEAN CORPUSCULAR HEMOGLOBIN 32 pg (25-34); MEAN CORPUSCULAR HGB CONC 35 g/dL (32-36); MEAN CORPUSCULAR VOLUME 92 fL (80-99); MEAN PLATELET VOLUME 9.6 fL (9.0-12.2); MONOCYTES # (AUTO) 1.5 10^3/uL (0.0-1.0); MONOCYTES % (AUTO) 12 % (0-12); NEUTROPHILS # (AUTO) 8.3 10^3/uL (1.8-7.8); NEUTROPHILS % (AUTO) 67 % (42-75); PLATELET COUNT 250 10^3/uL (130-400); WHITE BLOOD COUNT 12.3 10^3/uL (4.3-11.0)
[2021-10-29 06:49] LABS: POTASSIUM 3.9 MMOL/L (3.6-5.0)
[2021-10-29 06:51] LABS: CALCIUM 8.6 MG/DL (8.5-10.1)
[2021-10-29 06:55] LABS: CREATININE SERUM 0.74 MG/DL (0.60-1.30)
[2021-10-29 08:44] VITALS: BP 143/82
[2021-10-29] MEDS ORDERED: PROPRANOLOL 20 MG (INDERAL) TABLET PO SCH (08:45)
[2021-10-29] MEDS ORDERED: PANTOPRAZOLE 40 MG (PROTONIX) TAB PO SCH (09:00)
--- NOTE | 2021-10-29 10:53 | Short Stay Summary ---
History of Present Illness History of Present Illness Reason for visit/HPI Pt is an 86y/o male who is known to me from clinic. Ravinder has been being treated at the cancer center with Keytruda for metastatic melanoma - he has been feeling weak, nauseated and having trouble having a bowel movement for the past 8 days with the sensation of such severe fullness that he has essentially stopped eating and drinking for the past 3 days. He had fluids in the cancer center y esterday and he felt a little better, but still had not been having stools. His called the office and left a voicemail around 4:30pm, I called her back around 5:15pm and informed her that if he has been having such difficulty - we need to see about him going to the hospital for an enema - I told her to go to the ER so that they could image his stomach and make sure there was not something more ominous happening and they were seen in the ER late last night. He was found to have significant stool throughout the colon, and they put him up to the floor for the enema. Date of Admission Oct 28, 2021 at 21:02 Date of Discharge 10/29/21 Time Seen by Provider: 08:20 Attending Physician Josh Roberson MD Admitting Physician Admitting Physician: Josh Roberson MD Attending Physician: Josh Roberson MD Consult Allergies and Home Medications Allergies Coded Allergies: hydrocodone (Unverified Allergy, Mild, 03/22/07) amlodipine (Unverified Allergy, Unknown, 10/25/13) benazepril (Unverified Allergy, Unknown, 10/25/13) carbidopa (Unverified Allergy, Unknown, 05/18/21) codeine (Verified Allergy, Unknown, 09/02/05) levodopa (Unverified Allergy, Unknown, 05/18/21) telmisartan (Unverified Allergy, Unknown, 10/25/13) Patient Home Medication List Home Medication List Reviewed: Yes Aspirin (Aspirin EC) 81 Mg Tablet.dr, 81 MG PO HS Prescribed by: JOSH ROBERSON on 03/31/21 5311 Bisacodyl (Bisacodyl) 10 Mg Supp.rect, 10 MG NV DAILY PRN Prescribed by: JOSH ROBERSON on 10/29/21 1228 Docusate Sodium (Dulcolax Stool Softener) 100 Mg Capsule, 100 MG PO BID Prescribed by: JOSH ROBERSON on 10/29/21 1228 Hydralazine HCl (Hydralazine HCl) 50 Mg Tablet, 25 MG PO TID PRN for BLOOD PRESSURE Prescribed by: LUCILLE REED on 06/20/21 1103 Hydralazine HCl (Hydralazine HCl) 50 Mg Tablet, 50 MG PO QID Prescribed by: JOSH ROBERSON on 10/29/21 1228 Lactulose (Lactulose) 10 Gram/15 Ml (15 Ml) Solution, 10 GM PO DAILY Prescribed by: JOSH ROBERSON on 10/29/21 122 Metformin HCl (Metformin HCl) 500 Mg Tablet, 500 MG PO BIDAC, (Reported) Entered as Reported by: PASCUAL PEREZ on 05/19/21 0900 Pantoprazole Sodium (Pantoprazole Sodium) 40 Mg Tablet.dr, 40 MG PO BIDAC Prescribed by: JOSH ROBERSON on 03/31/21 09 Propranolol HCl (Propranolol HCl ER) 60 Mg Cap.sa.24h, 60 MG PO BID Prescribed by: ANA VENTURA on 05/18/21 0957 Ubidecarenone (Co Q-10) 100 Mg Capsule, 100 MG PO DAILY Prescribed by: JOSH ROBERSON on 03/31/21 09 Discontinued Medications Alprazolam (Xanax) 0.25 Mg Tablet, 0.25 MG PO Q6H PRN for ANXIETY Prescribed by: JOSH ROBERSON on 03/31/21 09 Doxazosin Mesylate (Doxazosin Mesylate) 4 Mg Tablet, 8 MG PO HS Prescribed by: JOSH ROBERSON on 03/31/21928 Furosemide (Furosemide) 20 Mg Tablet, 20 MG PO DAILY PRN, (Reported) Entered as Reported by: Adriane Hills on 06/20/21 042 Losartan Potassium (Losartan Potassium) 50 Mg Tablet, 50 MG PO DAILY Prescribed by: JOSH ROBERSON on 03/31/21 09 Ondansetron (Ondansetron Odt) 4 Mg Tab.rapdis, 4-8 MG PO Q6H PRN for NAUSEA/VOMITING Prescribed by: YVETTE TRINIDAD on 10/10/21 0439 Potassium Chloride (Potassium Chloride) 10 Meq Tab.er.prt, 10 MEQ PO DAILY PRN, (Reported) Entered as Reported by: Adriane Hills on 06/20/21420 Quetiapine Fumarate (Quetiapine Fumarate) 25 Mg Tablet, 12.5 MG PO HS, (Reported) Entered as Reported by: Adriane Hills on 06/20/21420 Trazodone HCl (Trazodone HCl) 50 Mg Tablet, 50 MG PO HS PRN for ANXIETY Prescribed by: JOSH ROBERSON on 03/31/21 0929 Past Wahprat-Agzzkb-Tiybom Hx Patient Social History Marrital Status: Living Status: lives at home with his Employed/Student: retired Smoking Status: Former Smoker Former Smoker, Quit: Feb 27, 1979 2nd Hand Smoke Exposure: No Recent Hopitalizations: Yes (FOR UNCONTROLLED HTN) Have you traveled recently?: No Alcohol Use?: No Substance type: Hallucinogens Pt feels they are or have been: No Immunizations Up To Date Date of Pneumonia Vaccine: July 02, 2009 Date of Influenza Vaccine: Nov 27, 2020 Seasonal Allergies Seasonal Allergies: No Surgeries Yes (MENISCUS REPAIR, TURP, HERNIA X3, bilateral ENDARTERECTOMY,2005) Abdominal, Cardiac, CABG, Orthopedic, Transurethral Resection, Vascular Surgery Respiratory No Currently Using CPAP: No Currently Using BIPAP: No Cardiovascular Yes (CABG X3 VESSELS;BILAT CAROTID ENDARTERECTOMY; RBBB) Chronic Edema/Swelling, Coronary Artery Disease, High Cholesterol, Hypertension, Peripheral Vascular Neurological Yes (HYPERTENSIVE ENCEPHALOPATHY, ESSENTIAL TREMORS UPPER EXTREMITIES) Dementia, TIA Reproductive System Hx Reproductive Disorders: No Sexually Transmitted Disease: No Genitourinary Yes Benign Prostatic Hyperpl, Prostate Problems Gastrointestinal Yes Abdominal Hernia, Gastroesophageal Reflux, Chronic Constipation Musculoskeletal Yes (KNEE SURGERY; GENERALIZED WEAKNESS; FALLS; ) Arthritis Endocrine History of Endocrine Disorders: Yes Endocrine Disorders: Diabetes, Non-Insulin dep HEENT History of HEENT Disorders: Yes Hearing Impairment: Hard of Hearing, Hearing Aide Right Cancer Yes Skin, Melanoma Did You Recieve Any Treatments: Yes Type of Treatment: Chemotherapy, Surgical Intervention Psychosocial History of Psychiatric Problem: Yes Behavioral Health Disorders: Sleep Difficulties, Anxiety Integumentary History of Skin or Integumenta: Yes (MELANOMA ON BACK) Blood Transfusions History of Blood Disorders: No Reviewed Nursing Assessment Reviewed/Agree w Nursing PMH: Yes Family Medical History Significant Family History: Heart Disease, Hypertension Other Significan Family Hx: SOCIAL HISTORY: -NO SMOKING -RARE ALCOHOL USE -NO DRUG USE PAST SURGICAL HISTORY: -HERNIA REPAIR X 3 -TURP -KNEE SURGERY FOR TORN MENISCUS -BILATERAL CAROTID ENDARTERECTOMY 2006 -3-VESSEL CABG -REMOVAL OF MELANOMA OF BACK WITH LYMPH NODE BIOPSY RIGHT AXILLA 04/2021 -PORT RIGHT CHEST 04/2021 ADDITONAL PMH: -MULTIPLE EPISODES OF 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 -FREQUENT EPISODES OF DELIRIUM/INCREASED CONFUSION, HALLUCINATIONS, SPEECH ABNORMALITIES -MULTIFACTORIAL DUE TO DEMENTIA AND "SUNDOWNER'S", PARKINSON'S, HYPERTENSIVE ENCEPHALOPATHY -HAS HAD PROGRESSIVE GENERALIZED WEAKNESS AND INABILTIY TO DO ADL'S INCLUDING BEING UNABLE TO FEED HIMSELF Review of Systems Constitutional: No chills, No diaphoresis, No fever; malaise, weakness EENTM: No hoarseness, No throat pain, No throat swelling Respiratory: No cough, No dyspnea on exertion, No short of breath Cardiovascular: No chest pain, No palpitations Gastrointestinal: abdominal pain, constipation; No dysphagia; loss of appetite; No melena; nausea; No vomiting Genitourinary: no symptoms reported Musculoskeletal: joint pain, muscle weakness Skin: other (still has sutures in his mid back) Psychiatric/Neurological: Denies Anxiety, Denies Depressed; Tremors, Weakness All Other Systems Reviewed Negative Unless Noted: Yes Physical Exam Vital Signs Vital Signs - First Documented 10/28/21 19:20 Temp 36.8 Pulse 60 Resp 18 B/P (MAP) 170/84 (112) Pulse Ox 97 O2 Delivery Room Air Capillary Refill : Less Than 3 Seconds Height, Weight, BMI Height: 6'0.00" Weight: 230lbs. 0.0oz. 104.228671ou; 28.78 BMI Method: General Appearance: No Apparent Distress, WD/WN HEENT: PERRL/EOMI, Pharynx Normal Neck: Full Range of Motion, Non Tender, Supple Respiratory: Chest Non Tender, Lungs Clear, Normal Breath Sounds, No Accessory Muscle Use, No Respiratory Distress Cardiovascular: Regular Rate, Rhythm Gastrointestinal: Non Tender, Soft, Other (decreased bowel sounds throughout) Back: Other (surgical site mid left back) Neurologic/Psychiatric: Alert, Oriented x3, Normal Mood/Affect, Other (pill rolling tremor of hands) Skin: Normal Color, Warm/Dry Lymphatic: No Adenopathy Short Stay Diagnosis Discharge Diagnosis-Short Stay Admission Diagnosis: hyponatremia hyperkalemia obstipation chronic hypertension hx of hypertensive encephalopathy essential tremor weakness chronic constipation 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 on imaging Final Discharge Diagnosis: hyponatremia hyperkalemia obstipation chronic hypertension hx of hypertensive encephalopathy essential tremor weakness chronic constipation 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 on imaging Conclusion Labs Laboratory Tests 10/28/21 20:02: Sodium Level 126L, Potassium Level 5.9H, Chloride Level 95L, Carbon Dioxide Level 22, Anion Gap 9, Blood Urea Nitrogen 10, Creatinine 0.84, Estimat Glomerular Filtration Rate 84, BUN/Creatinine Ratio 12, Glucose Level 107H, Calcium Level 8.4L, Corrected Calcium 9.0, Total Bilirubin 0.6, Aspartate Amino Transf (AST/SGOT) 53H, Alanine Aminotransferase (ALT/SGPT) 23, Alkaline Phosphatase 37L, C-Reactive Protein High Sensitivity 0.07, Total Protein 6.5, Albumin 3.3 10/28/21 20:16: White Blood Count 15.4H, Red Blood Count 4.54, Hemoglobin 14.5, Hematocrit 42, Mean Corpuscular Volume 92, Mean Corpuscular Hemoglobin 32, Mean Corpuscular Hemoglobin Concent 35, Red Cell Distribution Width 13.1, Platelet Count 274, Mean Platelet Volume 9.5, Immature Granulocyte % (Auto) 1, Neutrophils (%) (Aut o) 78H, Lymphocytes (%) (Auto) 12, Monocytes (%) (Auto) 10, Eosinophils (%) (Auto) 0, Basophils (%) (Auto) 0, Neutrophils # (Auto) 11.9H, Lymphocytes # (Auto) 1.8, Monocytes # (Auto) 1.5H, Eosinophils # (Auto) 0.0, Basophils # (Auto) 0.1, Immature Granulocyte # (Auto) 0.1, Neutrophils % (Manual) 79, Lymphocytes % (Manual) 13, Monocytes % (Manual) 8, Blood Morphology Comment NORMAL 10/29/21 05:49: Sodium Level 133L, Potassium Level 3.9, Chloride Level 102, Carbon Dioxide Level 21, Anion Gap 10, Blood Urea Nitrogen 9, Creatinine 0.74, Estimat Glomerular Filtration Rate 87, BUN/Creatinine Ratio 12, Glucose Level 109H, Calcium Level 8.6, White Blood Count 12.3H, Red Blood Count 4.43, Hemoglobin 14.1, Hematocrit 41, Mean Corpuscular Volume 92, Mean Corpuscular Hemoglobin 32, Mean Corpuscular Hemoglobin Concent 35, Red Cell Distribution Width 13.1, Platelet Count 250, Mean Platelet Volume 9.6, Immature Granulocyte % (Auto) 1, Neutrophils (%) (Auto) 67, Lymphocytes (%) (Auto) 19, Monocytes (%) (Auto) 12, Eosinophils (%) (Auto) 0, Basophils (%) (Auto) 0, Neutrophils # (Auto) 8.3H, Lymphocytes # (Auto) 2.4, Monocytes # (Auto) 1.5H, Eosinophils # (Auto) 0.0, Basophils # (Auto) 0.1, Immature Granulocyte # (Auto) 0.1 Conclusion/Plan hyponatremia hyperkalemia obstipation chronic hypertension hx of hypertensive encephalopathy essential tremor weakness chronic constipation 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 Obstipation with chronic constipation - pt to be started on outpatient lactulose, order was sent to pharmacy - and dulcolax suppositories as needed. Pt was given enema's in the hospital with successful expulsion of stool. - consult to Dr. Waterman who will see pt as outpatient - he has changes on CT of abdomen with possible internal adhesions causing mild obstruction of the bowel. Esophagitis with thickening of distal esophagus on imaging - consult to Dr. 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 Essential Tremor - resume propranolol. Metastatic melanoma - defer to Dr. Gomez - pt on Keytruda. Weakness - consult to home health for physical therapy. Pt adamant that he is leaving the hospital today. JOSH ROBERSON MD Oct 29, 2021 10:53
[2021-10-29] MEDS ORDERED: LACTULOSE SYRUP 10GM/15ML (ENULOSE) 30ML UDC PO NR (11:00)
[2021-10-29] MEDS ORDERED: BISACODYL 10 MG SUPP (DULCOLAX) PR NR (11:00)
[2021-10-29] MEDS ORDERED: MINERAL OIL ENEMA 133 ML BTL PR NR (11:00)
--- NOTE | 2021-10-29 11:54 | Consultation - Surgery ---
History of Present Illness History of Present Illness Patient Consulted On(pedro/time) 10/29/21 11:48 Date Seen by Provider: Oct 29, 2021 Time Seen by Provider: 09:30 History of Present Illness Consult requested by Dr. Roberson for Endoscopy. Patient is an 86 year old male who has had constipation issues for years. He was having discomfort in his abdomen and couldn't go for several days. Due to moderate discomfort came to hospital for further evaluation. He is having a small amount of stool out. His last colonosocpy was in the s. Patient states he is going home today and that's not changing. He is getting enemas now. He had a ct scan of abdomen pelvis demonstrating thickening of the distal esophagus and duodenum and swirling of some messentery but no obstruction question of internal hernia. Allergies and Home Medications Allergies Coded Allergies: hydrocodone (Unverified Allergy, Mild, 03/22/07) amlodipine (Unverified Allergy, Unknown, 10/25/13) benazepril (Unverified Allergy, Unknown, 10/25/13) carbidopa (Unverified Allergy, Unknown, 05/18/21) codeine (Verified Allergy, Unknown, 09/02/05) levodopa (Unverified Allergy, Unknown, 05/18/21) telmisartan (Unverified Allergy, Unknown, 10/25/13) Patient Home Medication List Home Medication List Reviewed: Yes Alprazolam (Xanax) 0.25 Mg Tablet, 0.25 MG PO Q6H PRN for ANXIETY Prescribed by: JOSH ROBERSON on 03/31/21 09 Aspirin (Aspirin EC) 81 Mg Tablet.dr, 81 MG PO HS Prescribed by: JOSH ROBERSON on 03/31/21 09 Docusate Sodium (Dulcolax Stool Softener) 100 Mg Capsule, 100 MG PO BID, (Reported) Entered as Reported by: ANA VENTURA on 05/18/21 0956 Doxazosin Mesylate (Doxazosin Mesylate) 4 Mg Tablet, 8 MG PO HS Prescribed by: JOSH ROBERSON on 03/31/21 09 Furosemide (Furosemide) 20 Mg Tablet, 20 MG PO DAILY PRN, (Reported) Entered as Reported by: Adriane Hills on 06/20/21 0421 Hydralazine HCl (Hydralazine HCl) 50 Mg Tablet, 50 MG PO TID Prescribed by: JOSH ROBERSON on 03/31/21928 Hydralazine HCl (Hydralazine HCl) 50 Mg Tablet, 25 MG PO TID PRN for BLOOD PRESSURE Prescribed by: LUCILLE REED on 06/20/21 1103 Losartan Potassium (Losartan Potassium) 50 Mg Tablet, 50 MG PO DAILY Prescribed by: JOSH ROBERSON on 03/31/21 09 Metformin HCl (Metformin HCl) 500 Mg Tablet, 500 MG PO BIDAC, (Reported) Entered as Reported by: PASCUAL PEREZ on 05/19/21 0900 Ondansetron (Ondansetron Odt) 4 Mg Tab.rapdis, 4-8 MG PO Q6H PRN for NAUSEA/VOMITING Prescribed by: YVETTE TRINIDAD on 10/10/21 0439 Pantoprazole Sodium (Pantoprazole Sodium) 40 Mg Tablet.dr, 40 MG PO BIDAC Prescribed by: JOSH ROBERSON on 03/31/21928 Potassium Chloride (Potassium Chloride) 10 Meq Tab.er.prt, 10 MEQ PO DAILY PRN, (Reported) Entered as Reported by: Adriane Hills on 06/20/21 042 Propranolol HCl (Propranolol HCl ER) 60 Mg Cap.sa.24h, 60 MG PO BID Prescribed by: ANA VENTURA on 05/18/21 0957 Quetiapine Fumarate (Quetiapine Fumarate) 25 Mg Tablet, 12.5 MG PO HS, (Reported) Entered as Reported by: Adriane Hills on 06/20/21 042 Trazodone HCl (Trazodone HCl) 50 Mg Tablet, 50 MG PO HS PRN for ANXIETY Prescribed by: JOSH ROBERSON on 03/31/21928 Ubidecarenone (Co Q-10) 100 Mg Capsule, 100 MG PO DAILY Prescribed by: JOSH ROBERSON on 03/31/21928 Past Dbudbeb-Vozvkz-Fozukn Hx Patient Social History Smoking Status: Former Smoker Former Smoker, Quit: Feb 27, 1979 Type Used: Cigarettes 2nd Hand Smoke Exposure: No Recent Hopitalizations: Yes (FOR UNCONTROLLED HTN) Alcohol Use?: No Substance type: Hallucinogens Have you traveled recently?: No Immunizations Up To Date Date of Pneumonia Vaccine: July 02, 2009 Date of Influenza Vaccine: Nov 27, 2020 Seasonal Allergies Seasonal Allergies: No Surgeries History of Surgeries: Yes (MENISCUS REPAIR, TURP, HERNIA X3, bilateral ENDARTERECTOMY,2006) Surgeries: Abdominal, Cardiac, CABG, Orthopedic, Transurethral Resection, Vascular Surgery Respiratory History of Respiratory Disorde: No Cardiovascular History of Cardiac Disorders: Yes (CABG X3 VESSELS;BILAT CAROTID ENDARTERECTOMY; RBBB) Cardiac Disorders: Chronic Edema/Swelling, Coronary Artery Disease, High Cholesterol, Hypertension, Peripheral Vascular Neurological History of Neurological Disord: Yes (HYPERTENSIVE ENCEPHALOPATHY, ESSENTIAL TREMORS UPPER EXTREMITIES) Neurological Disorders: Dementia, TIA Reproductive System Hx Reproductive Disorders: No Sexually Transmitted Disease: No Genitourinary History of Genitourinary Disor: Yes Genitourinary Disorders: Benign Prostatic Hyperpl, Prostate Problems Gastrointestinal History of Gastrointestinal Di: Yes Gastrointestinal Disorders: Abdominal Hernia, Gastroesophageal Reflux, Chronic Constipation Musculoskeletal History of Musculoskeletal Dis: Yes (KNEE SURGERY; GENERALIZED WEAKNESS; FALLS; ) Musculoskeletal Disorders: Arthritis Endocrine History of Endocrine Disorders: Yes Endocrine Disorders: Diabetes, Non-Insulin dep HEENT History of HEENT Disorders: Yes Hearing Impairment: Hard of Hearing, Hearing Aide Right Cancer History of Cancer: Yes Cancer: Skin, Melanoma Psychosocial History of Psychiatric Problem: Yes Behavioral Health Disorders: Sleep Difficulties, Anxiety Integumentary History of Skin or Integumenta: Yes (MELANOMA ON BACK) Blood Transfusions History of Blood Disorders: No Reviewed Nursing Assessment Reviewed/Agree w Nursing PMH: Yes Family Medical History Significant Family History: Heart Disease, Hypertension Review of Systems-General Constitutional: No chills, No diaphoresis EENTM: No blurred vision, No double vision Respiratory: No cough, No dyspnea on exertion Cardiovascular: No chest pain, No edema Gastrointestinal: constipation; No nausea, No vomiting Genitourinary: No decreased output, No hematuria Musculoskeletal: No joint pain, No neck pain Skin: No change in color, No change in hair/nails Psychiatric/Neurological: Denies Anxiety, Denies Depressed, Denies Emotional Problems All Other Systems Reviewed Negative Unless Noted: Yes (Negative excepted noted.) Physical Exam-General Problems Physical Exam Vital Signs Vital Signs - First Documented 10/28/21 19:20 Temp 36.8 Pulse 60 Resp 18 B/P (MAP) 170/84 (112) Pulse Ox 97 O2 Delivery Room Air Capillary Refill : Less Than 3 Seconds General Appearance: WD/WN, no apparent distress HEENT: PERRL/EOMI, normal ENT inspection Neck: non-tender, supple Respiratory: chest non-tender, no respiratory distress, no accessory muscle use Cardiovascular: regular rate, rhythm, no JVD Gastrointestinal: non tender, soft Rectal: deferred (getting enema) Back: no CVA tenderness, no vertebral tenderness Extremities: non-tender, normal inspection Neurologic/Psychiatric: alert, normal mood/affect, oriented x 3 Skin: normal color, warm/dry Lymphatic: no adenopathy Data Review Labs Laboratory Tests 10/28/21 20:02: Sodium Level 126L, Potassium Level 5.9H, Chloride Level 95L, Carbon Dioxide Level 22, Anion Gap 9, Blood Urea Nitrogen 10, Creatinine 0.84, Estimat Glomerular Filtration Rate 84, BUN/Creatinine Ratio 12, Glucose Level 107H, Calcium Level 8.4L, Corrected Calcium 9.0, Total Bilirubin 0.6, Aspartate Amino Transf (AST/SGOT) 53H, Alanine Aminotransferase (ALT/SGPT) 23, Alkaline Phosp hatase 37L, C-Reactive Protein High Sensitivity 0.07, Total Protein 6.5, Albumin 3.3 10/28/21 20:16: White Blood Count 15.4H, Red Blood Count 4.54, Hemoglobin 14.5, Hematocrit 42, Mean Corpuscular Volume 92, Mean Corpuscular Hemoglobin 32, Mean Corpuscular Hemoglobin Concent 35, Red Cell Distribution Width 13.1, Platelet Count 274, Mean Platelet Volume 9.5, Immature Granulocyte % (Auto) 1, Neutrophils (%) (Auto) 78H, Lymphocytes (%) (Auto) 12, Monocytes (%) (Auto) 10, Eosinophils (%) (Auto) 0, Basophils (%) (Auto) 0, Neutrophils # (Auto) 11.9H, Lymphocytes # (Au to) 1.8, Monocytes # (Auto) 1.5H, Eosinophils # (Auto) 0.0, Basophils # (Auto) 0.1, Immature Granulocyte # (Auto) 0.1, Neutrophils % (Manual) 79, Lymphocytes % (Manual) 13, Monocytes % (Manual) 8, Blood Morphology Comment NORMAL 10/29/21 05:49: Sodium Level 133L, Potassium Level 3.9, Chloride Level 102, Carbon Dioxide Level 21, Anion Gap 10, Blood Urea Nitrogen 9, Creatinine 0.74, Estimat Glomerular Filtration Rate 87, BUN/Creatinine Ratio 12, Glucose Level 109H, Calcium Level 8.6, White Blood Count 12.3H, Red Blood Count 4.43, Hemoglobin 14.1, Hematocrit 41, Mean Corpuscular Volume 92, Mean Corpuscular Hemoglobin 32, Mean Corpuscular Hemoglobin Concent 35, Red Cell Distribution Width 13.1, Platelet Count 250, Mean Platelet Volume 9.6, Immature Granulocyte % (Auto) 1, Neutrophils (%) (Auto) 67, Lymphocytes (%) (Auto) 19, Monocytes (%) (Auto) 12, Eosinophils (%) (Auto) 0, Basophils (%) (Auto) 0, Neutrophils # (Auto) 8.3H, Lymphocytes # (Auto) 2.4, Monocytes # (Auto) 1.5H, Eosinophils # (Auto) 0.0, Basophils # (Au to) 0.1, Immature Granulocyte # (Auto) 0.1 Assessment/Plan Assessment/Plan Assessment/Plan constipation change in bowel habits thickening of distal eosphagus patient going home he states getting enema now he will follow up with me on monday and will plan on scheduling egd colonoscopy outpatient he is in agreement with plan. FADIA RIVAS DO Oct 29, 2021 11:54
[2021-10-29 12:17] VITALS: BP 125/72
[2021-10-29] MEDS ORDERED: BISA10SU8 PR (12:28)
[2021-10-29] MEDS ORDERED: LACT10SO27 PO (12:28)
[2021-10-29] MEDS ORDERED: DOCU-163 PO (12:28)
[2021-10-29] MEDS ORDERED: HYDR-3924 PO (12:28)
--- NOTE | 2021-10-29 12:32 | D/C HH Face to Face Order ---
D/C HH Face to Face Orders Reconcile Patient Problems Problems Reviewed?: Yes Instructions for Patient home health of pt choice Patient Instructions/FollowUp: [facility] keep scheduled appt with Dr. Gomez at [facility] vasquez to make appt for patient to be seen in his clinic for scopes Physician to follow Patient: liliana Discharge Diet for Home: No Restrictions, Regular Diet Patient Problems: obstipation chronic hypertension hx of hypertensive encephalopathy essential tremor weakness chronic constipation melanoma metastatic esphagitis Goals for Patient: increased strength improved bowel regimen Patient Data-Allergies,Ht & Wt Patient Allergies: Coded Allergies: hydrocodone (Unverified Allergy, Mild, 03/22/07) amlodipine (Unverified Allergy, Unknown, 10/25/13) benazepril (Unverified Allergy, Unknown, 10/25/13) carbidopa (Unverified Allergy, Unknown, 05/18/21) codeine (Verified Allergy, Unknown, 09/02/05) levodopa (Unverified Allergy, Unknown, 05/18/21) telmisartan (Unverified Allergy, Unknown, 10/25/13) Height (Feet): 6 Height (Inches): 0.00 Weight (Pounds): 230 Weight (Ounces): 0.0 Home Health Need/Face to Face Date of Face to Face: Oct 29, 2021 Clinical Findings: Generalized weakness and fatigue, Muscle weakness, Unsteady gait I have seen Pt [id number]: Yes Discharged To: Home Diagnosis/Conditions: obstipation chronic hypertension hx of hypertensive encephalopathy essential tremor weakness chronic constipation melanoma metastatic esphagitis Patient is Homebound due to: Makayla fall risk due to instabilty, Muscle weakness Homebound Status Due to the above stated illness, injury or surgical procedure (medical condition or diagnosis) and associated clinical findings, the patient is homebound because of his/her inability to leave home except with aid of a supportive device and/or person AND leaving the home requires a considerable and taxing effort or is medically contraindicated. Pt req the following assistanc: Cane, Walker Home Health Nursing Orders Home Health Services Order: Physical Therapy-Evaluate & Treat Home Health Infusion Therapy Line Start Date: Oct 28, 2021 Home Health Lab Orders Labs (specify type/freq): cmp, cbc on 11/02/21 Therapy Orders Therapy Orders: Physical Therapy, PT to assess for OT Certify Stmt I certify that this patient is under my care and that I, a nurse practitioner or a physician; a campus administrative assistant working with me, had a face to face encounter that - meets the physician face to face encounter requirements with this patient as dated. Medication List: Active Scripts Active Hydralazine HCl 50 Mg Tablet 25 Mg PO TID PRN 1/2 tablet of 50mg Hydralazine as needed for blood pressure greater than 160/90 Propranolol HCl ER (Propranolol HCl) 60 Mg Cap.sa.24h 60 Mg PO BID Hydralazine HCl 50 Mg Tablet 50 Mg PO TID Pantoprazole Sodium 40 Mg Tablet.dr 40 Mg PO BIDAC Co Q-10 (Ubidecarenone) 100 Mg Capsule 100 Mg PO DAILY Aspirin EC (Aspirin) 81 Mg Tablet.dr 81 Mg PO HS Metformin HCl 500 Mg Tablet 500 Mg PO BIDAC (pt to hold until 10/31/21 due to decreased appetite) Dulcolax Stool Softener (Docusate Sodium) 100 Mg Capsule 100 Mg PO BID Lab results: Laboratory Tests Test 10/28/21 20:02 10/28/21 20:16 10/29/21 05:49 Range/Units Sodium Level 126 L 133 L 135-145 MMOL/L Potassium Level 5.9 H 3.9 3.6-5.0 MMOL/L Chloride Level 95 L 102 98-107 MMOL/L Carbon Dioxide Level 22 21 21-32 MMOL/L Anion Gap 9 10 5-14 MMOL/L Blood Urea Nitrogen 10 9 7-18 MG/DL Creatinine 0.84 0.74 0.60-1.30 MG/DL Estimat Glomerular Filtration Rate 84 87 BUN/Creatinine Ratio 12 12 Glucose Level 107 H 109 H 70-105 MG/DL Calcium Level 8.4 L 8.6 8.5-10.1 MG/DL Corrected Calcium 9.0 8.5-10.1 MG/DL Total Bilirubin 0.6 0.1-1.0 MG/DL Aspartate Amino Transf (AST/SGOT) 53 H 5-34 U/L Alanine Aminotransferase (ALT/SGPT) 23 0-55 U/L Alkaline Phosphatase 37 L 40-136 U/L C-Reactive Protein High Sensitivity 0.07 0.00-0.50 MG/DL Total Protein 6.5 6.4-8.2 GM/DL Albumin 3.3 3.2-4.5 GM/DL White Blood Count 15.4 H 12.3 H 4.3-11.0 10^3/uL Red Blood Count 4.54 4.43 4.30-5.52 10^6/uL Hemoglobin 14.5 14.1 13.3-17.7 g/dL Hematocrit 42 41 40-54 % Mean Corpuscular Volume 92 92 80-99 fL Mean Corpuscular Hemoglobin 32 32 25-34 pg Mean Corpuscular Hemoglobin Concent 35 35 32-36 g/dL Red Cell Distribution Width 13.1 13.1 10.0-14.5 % Platelet Count 274 250 130-400 10^3/uL Mean Platelet Volume 9.5 9.6 9.0-12.2 fL Immature Granulocyte % (Auto) 1 1 % Neutrophils (%) (Auto) 78 H 67 42-75 % Lymphocytes (%) (Auto) 12 19 12-44 % Monocytes (%) (Auto) 10 12 0-12 % Eosinophils (%) (Auto) 0 0 0-10 % Basophils (%) (Auto) 0 0 0-10 % Neutrophils # (Auto) 11.9 H 8.3 H 1.8-7.8 10^3/uL Lymphocytes # (Auto) 1.8 2.4 1.0-4.0 10^3/uL Monocytes # (Auto) 1.5 H 1.5 H 0.0-1.0 10^3/uL Eosinophils # (Auto) 0.0 0.0 0.0-0.3 10^3/uL Basophils # (Auto) 0.1 0.1 0.0-0.1 10^3/uL Immature Granulocyte # (Auto) 0.1 0.1 0.0-0.1 10^3/uL Neutrophils % (Manual) 79 % Lymphocytes % (Manual) 13 % Monocytes % (Manual) 8 % Blood Morphology Comment NORMAL My orders: Orders - JOSH MORENO MD Admission Order(Inpt,Obs,Sdc) (10/28/21 23:38) Code/Resuscitation (10/28/21 23:38) Sequential Compression Device ONCE (10/28/21 23:38) Initiate Admission Nursing Pro .admission (10/28/21 23:38) Isolation Central Supply Req (10/28/21 23:38) General/Regular (10/29/21 Breakfast) Cbc With Automated Diff (10/29/21 05:00) Basic Metabolic Panel (10/29/21 05:00) Propranolol Tablet (Inderal Tablet) (10/29/21 00:00) Acetaminophen Tablet (Tylenol Tablet) (10/29/21 00:00) Diphenhydramine Tablet (Benadryl Tablet) (10/29/21 00:00) Ns Iv 1000 Ml (Sodium Chloride 0.9%) (10/28/21 23:45) Hydralazine Tablet (Apresoline Tablet) (10/29/21 06:00) Lactulose Oral Solution (Enulose Oral So (10/29/21 00:15) Diphenhydramine Tablet (Benadryl Tablet) (10/29/21 03:42) Acetaminophen Tablet (Tylenol Tablet) (10/29/21 03:42) Propranolol Tablet (Inderal Tablet) (10/29/21 03:44) Lactulose Oral Solution (Enulose Oral So (10/29/21 03:44) Propranolol Tablet (Inderal Tablet) (10/29/21 08:45) Pantoprazole Tablet (Protonix Tablet) (10/29/21 09:00) Mineral Oil Enema (Fleet Oil Enema) (10/29/21 11:00) Lactulose Oral Solution (Enulose Oral So (10/29/21 11:00) Bisacodyl Suppository (Dulcolax Supposit (10/29/21 11:00) Attending Discharge Inpt/Inobs (10/29/21 12:22) [facility] Dischage (10/29/21 12:22) JOSH MORENO MD Oct 29, 2021 12:32
[2021-10-29 15:22] VITALS: BP 138/72
--- NOTE | 2021-10-29 16:11 | Diagnostic Imaging Report ---
INDICATION: Abdominal pain. EXAMINATION: KUB, 3:51 p.m. FINDINGS: There are postsurgical changes from ventral hernia repairs. Bowel gas pattern is normal. There is stool present in the hepatic flexure and descending colon. There are no pathologic masses or calcifications. IMPRESSION: No acute abnormalities in the abdomen. Dictated by: Dictated on workstation # [id number]
[2021-10-29 17:27] VITALS: BP 138/72
== END 2021-10-29 12:22 | disposition home health service (06) ==
LOC: EDUNIT# 18:00 → ER 18:04 → 4TH 21:02 → UNDOADMOB 21:02 → 4TH 23:33 → UNDODISOB 10-29 17:38
PROVIDERS: ADMIT Family Medicine; ATTEND Family Medicine
DX: E87.1 Hypo-osmolality and hyponatremia (principal); E87.5 Hyperkalemia; K59.00 Constipation, unspecified; I10 Essential (primary) hypertension; I67.4 Hypertensive encephalopathy; K20.90 Esophagitis, unspecified without bleeding; C79.9 Secondary malignant neoplasm of unspecified site; G25.0 Essential tremor; Z79.82 Long term (current) use of aspirin; Z79.899 Other long term (current) drug therapy
CPT/HCPCS: 74018; 74177; 80048; 80053; 85007; 85025; 85027; 86141; 96360; 96361; 99284; G0378; 36415

== ENCOUNTER 2021-11-02 14:49 | Emergency (ER) | payer MEDICARE, BC ==
[~2021-11-02] VITALS: Ht 182 cm; Wt 97.0 kg
--- NOTE | 2021-11-02 15:44 | ED Abdominal Pain ---
General Chief Complaint: Abdominal/GI Problems Stated Complaint: NAUSEA,WEAKNESS,CAN'T EAT Nursing Triage Note: PT STATES [place], TAKES KEYTRUDA FOR SKIN CA, PT WAS IN THE OUT PT FOR RAD FOR A FALL IN THE BATH TUB LAST NIGHT AND STARTED VOMITIN SO HE CAME TO THE ER. LOW BACK PAIN FROM FALL. NOT EATING OR DRINKING WELL. STICHES STILL IN BACK FROM BX 3 WEEKS AGO Source of Information: Patient Exam Limitations: No Limitations History of Present Illness Date Seen by Provider: Nov 02, 2021 Time Seen by Provider: 19:17 Allergies and Home Medications Allergies Coded Allergies: hydrocodone (Unverified Allergy, Mild, 03/22/07) amlodipine (Unverified Allergy, Unknown, 10/25/13) benazepril (Unverified Allergy, Unknown, 10/25/13) carbidopa (Unverified Allergy, Unknown, 05/18/21) codeine (Verified Allergy, Unknown, 09/02/05) levodopa (Unverified Allergy, Unknown, 05/18/21) telmisartan (Unverified Allergy, Unknown, 10/25/13) Patient Home Medication List Aspirin (Aspirin EC) 81 Mg Tablet.dr, 81 MG PO HS Prescribed by: JOSH ROBERSON on 03/31/21 0929 Bisacodyl (Bisacodyl) 10 Mg Supp.rect, 10 MG AK DAILY PRN Prescribed by: JOSH ROBERSON on 10/29/21 1228 Docusate Sodium (Dulcolax Stool Softener) 100 Mg Capsule, 100 MG PO BID Prescribed by: JOSH ROBERSON on 10/29/21 1228 Hydralazine HCl (Hydralazine HCl) 50 Mg Tablet, 25 MG PO TID PRN for BLOOD PRESSURE Prescribed by: LUCILLE REED on 06/20/21 1103 Hydralazine HCl (Hydralazine HCl) 50 Mg Tablet, 50 MG PO QID Prescribed by: JOSH ROBERSON on 10/29/21 1228 Lactulose (Lactulose) 10 Gram/15 Ml (15 Ml) Solution, 10 GM PO DAILY Prescribed by: JOSH ROBERSON on 10/29/21 1228 Metformin HCl (Metformin HCl) 500 Mg Tablet, 500 MG PO BIDAC, (Reported) Entered as Reported by: PASCUAL PEREZ on 3/23/22 0900 Pantoprazole Sodium (Pantoprazole Sodium) 40 Mg Tablet.dr, 40 MG PO BIDAC Prescribed by: JOSH ROBERSON on 03/31/21928 Propranolol HCl (Propranolol HCl ER) 60 Mg Cap.sa.24h, 60 MG PO BID Prescribed by: ANA VENTURA on 05/18/21956 Ubidecarenone (Co Q-10) 100 Mg Capsule, 100 MG PO DAILY Prescribed by: JOSH ROBERSON on 03/31/21928 Discontinued Medications Alprazolam (Xanax) 0.25 Mg Tablet, 0.25 MG PO Q6H PRN for ANXIETY Prescribed by: JOSH ROBERSON on 03/31/21929 Doxazosin Mesylate (Doxazosin Mesylate) 4 Mg Tablet, 8 MG PO HS Prescribed by: JOSH ROBERSON on 03/31/21928 Furosemide (Furosemide) 20 Mg Tablet, 20 MG PO DAILY PRN, (Reported) Entered as Reported by: Adriane Hills on 06/20/21420 Losartan Potassium (Losartan Potassium) 50 Mg Tablet, 50 MG PO DAILY Prescribed by: JOSH ROBERSON on 03/31/21928 Ondansetron (Ondansetron Odt) 4 Mg Tab.rapdis, 4-8 MG PO Q6H PRN for NAUSEA/VOMITING Prescribed by: YVETTE TRINIDAD on 10/10/21438 Potassium Chloride (Potassium Chloride) 10 Meq Tab.er.prt, 10 MEQ PO DAILY PRN, (Reported) Entered as Reported by: Adriane Hills on 06/20/21420 Quetiapine Fumarate (Quetiapine Fumarate) 25 Mg Tablet, 12.5 MG PO HS, (Reported) Entered as Reported by: Adriane Hills on 06/20/21420 Trazodone HCl (Trazodone HCl) 50 Mg Tablet, 50 MG PO HS PRN for ANXIETY Prescribed by: JOSH ROBERSON on 03/31/21928 Past [id number] Hx Immunizations Up To Date First/Initial COVID19 Vaccinat: FEB 2020 Second COVID19 Vaccination Jose: APRIL 2020 Third COVID19 Vaccination Date: NOV 2020 Seasonal Allergies Seasonal Allergies: No Past Medical History Surgery/Hospitalization HX: melanoma, hernia x3, bilat cea, turp, ortho, niddm, htn, high lipids, TIA, DELERIUM, GERD, CAD, PARKINSONS, ANXIETY, PVD CABG Surgeries: Yes (MENISCUS REPAIR, TURP, HERNIA X3, bilateral ENDARTERECTOMY,2005) Abdominal, Cardiac, CABG, Orthopedic, Transurethral Resection, Vascular Surgery Respiratory: No Currently Using CPAP: No Currently Using BIPAP: No Cardiac: Yes (CABG X3 VESSELS;BILAT CAROTID ENDARTERECTOMY; RBBB) Chronic Edema/Swelling, Coronary Artery Disease, High Cholesterol, Hypertension, Peripheral Vascular Neurological: Yes (HYPERTENSIVE ENCEPHALOPATHY, ESSENTIAL TREMORS UPPER EXTREMITIES) Dementia, TIA Reproductive Disorders: No Sexually Transmitted Disease: No Genitourinary: Yes Benign Prostatic Hyperpl, Prostate Problems Gastrointestinal: Yes Abdominal Hernia, Gastroesophageal Reflux, Chronic Constipation Musculoskeletal: Yes (KNEE SURGERY; GENERALIZED WEAKNESS; FALLS; ) Arthritis Endocrine: Yes Diabetes, Non-Insulin dep HEENT: Yes Hearing Impairment: Hard of Hearing, Hearing Aide Right Cancer: Yes Skin, Melanoma Did You Recieve Any Treatments: Yes What Type of Treatment Did You: Chemotherapy, Surgical Intervention Psychosocial: Yes Sleep Difficulties, Anxiety Integumentary: Yes (MELANOMA ON BACK) Blood Disorders: No Family Medical History Heart Disease, Hypertension SOCIAL HISTORY: -NO SMOKING -RARE ALCOHOL USE -NO DRUG USE PAST SURGICAL HISTORY: -HERNIA REPAIR X 3 -TURP -KNEE SURGERY FOR TORN MENISCUS -BILATERAL CAROTID ENDARTERECTOMY 2005 -3-VESSEL CABG -REMOVAL OF MELANOMA OF BACK WITH LYMPH NODE BIOPSY RIGHT AXILLA 04/2021 -PORT RIGHT CHEST 04/2021 ADDITONAL PMH: -MULTIPLE EPISODES OF 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 -FREQUENT EPISODES OF DELIRIUM/INCREASED CONFUSION, HALLUCINATIONS, SPEECH ABNORMALITIES -MULTIFACTORIAL DUE TO DEMENTIA AND "SUNDOWNER'S", PARKINSON'S, HYPERTENSIVE ENCEPHALOPATHY -HAS HAD PROGRESSIVE GENERALIZED WEAKNESS AND INABILTIY TO DO ADL'S INCLUDING BEING UNABLE TO FEED HIMSELF Physical Exam Vital Signs Vital Signs - First Documented 11/02/21 15:11 Temp 36.9 Pulse 60 Resp 18 B/P (MAP) 183/90 (121) Pulse Ox 96 O2 Delivery Room Air Capillary Refill : Height/Weight/BMI Height: 6'0.00" Weight: 230lbs. 0.0oz. [id number]; 29.00 BMI Method: Progress/Results/Core Measures Results/Orders Lab Results Laboratory Tests Test 11/02/21 15:30 11/02/21 16:35 Range/Units White Blood Count 12.9 H 4.3-11.0 10^3/uL Red Blood Count 4.44 4.30-5.52 10^6/uL Hemoglobin 14.3 13.3-17.7 g/dL Hematocrit 41 40-54 % Mean Corpuscular Volume 93 80-99 fL Mean Corpuscular Hemoglobin 32 25-34 pg Mean Corpuscular Hemoglobin Concent 35 32-36 g/dL Red Cell Distribution Width 13.2 10.0-14.5 % Platelet Count 201 130-400 10^3/uL Mean Platelet Volume 10.0 9.0-12.2 fL Immature Granulocyte % (Auto) 1 % Neutrophils (%) (Auto) 80 H 42-75 % Lymphocytes (%) (Auto) 9 L 12-44 % Monocytes (%) (Auto) 8 0-12 % Eosinophils (%) (Auto) 2 0-10 % Basophils (%) (Auto) 1 0-10 % Neutrophils # (Auto) 10.3 H 1.8-7.8 10^3/uL Lymphocytes # (Auto) 1.2 1.0-4.0 10^3/uL Monocytes # (Auto) 1.0 0.0-1.0 10^3/uL Eosinophils # (Auto) 0.2 0.0-0.3 10^3/uL Basophils # (Auto) 0.1 0.0-0.1 10^3/uL Immature Granulocyte # (Auto) 0.1 0.0-0.1 10^3/uL Sodium Level 132 L 135-145 MMOL/L Potassium Level 3.9 3.6-5.0 MMOL/L Chloride Level 99 98-107 MMOL/L Carbon Dioxide Level 25 21-32 MMOL/L Anion Gap 8 5-14 MMOL/L Blood Urea Nitrogen 10 7-18 MG/DL Creatinine 0.78 0.60-1.30 MG/DL Estimat Glomerular Filtration Rate 86 BUN/Creatinine Ratio 13 Glucose Level 126 H 70-105 MG/DL Calcium Level 8.6 8.5-10.1 MG/DL Corrected Calcium 9.2 8.5-10.1 MG/DL Total Bilirubin 0.8 0.1-1.0 MG/DL Aspartate Amino Transf (AST/SGOT) 23 5-34 U/L Alanine Aminotransferase (ALT/SGPT) 23 0-55 U/L Alkaline Phosphatase 49 40-136 U/L Total Protein 5.6 L 6.4-8.2 GM/DL Albumin 3.3 3.2-4.5 GM/DL Urine Color YELLOW Urine Clarity CLEAR Urine pH 6.5 5-9 Urine Specific [place] 1.015 L 1.016-1.022 Urine Protein NEGATIVE NEGATIVE Urine Glucose (UA) NEGATIVE NEGATIVE Urine Ketones NEGATIVE NEGATIVE Urine Nitrite NEGATIVE NEGATIVE Urine Bilirubin NEGATIVE NEGATIVE Urine Urobilinogen 1.0 < = 1.0 MG/DL Urine Leukocyte Esterase NEGATIVE NEGATIVE Urine RBC (Auto) NEGATIVE NEGATIVE Urine RBC RARE /HPF Urine WBC RARE /HPF Urine Squamous Epithelial Cells NONE /HPF Urine Renal Epithelial Cells NONE /HPF Urine Crystals NONE /LPF Urine Bacteria NEGATIVE /HPF Urine Casts NONE /LPF Urine Mucus NEGATIVE /LPF Urine Culture Indicated NO My Orders Orders - ABHILASH ARROYO DOUBLE CUT SAWYER Implanted Port: Access (11/02/21 15:42) Ondansetron Injection (Zofran Injectio (11/02/21 15:45) Ns Iv 500 Ml (Sodium Chloride 0.9%) (11/02/21 15:45) Cbc With Automated Diff (11/02/21 16:32) Comprehensive Metabolic Panel (11/02/21 16:32) Ua Culture If Indicated (11/02/21 16:32) Ed Iv/Invasive Line Start (11/02/21 16:43) Ns Iv 1000 Ml (Sodium Chloride 0.9%) (11/02/21 16:45) Ct Abdomen/Pelvis Wo (11/02/21 16:32) Diatrizoate Meglum/Sodium 37% (Gastrogra (11/02/21 17:00) Medications Given in ED Current Medications Medications Dose Ordered Sig/Les Route Start Time Stop Time Status Last Admin Dose Admin Diatrizoate Meglum/ Diatrizoate Sod 120 ml ONCE ONCE PO 11/02/21 17:00 11/02/21 17:02 DC 11/02/21 17:05 120 ML Ondansetron HCl 8 mg ONCE ONCE IVP 11/02/21 15:45 11/02/21 15:46 DC 11/02/21 15:52 8 MG Vital Signs/I&O 11/02/21 15:11 Temp 36.9 Pulse 60 Resp 18 B/P (MAP) 183/90 (121) Pulse Ox 96 O2 Delivery Room Air Blood Pressure Mean: 121 Departure Communication (Admissions) Time/Spoke to Consulting Phy: 19:06 Dr. Roberson Impression Primary Impression: Nausea alone Additional Impression: Back pain Disposition: 01 HOME, SELF-CARE Condition: Improved Departure-Patient Inst. Decision time for Depature: 19:18 Referrals: JOSH ROBERSON MD (PCP/Family) Primary Care Physician Patient Instructions: Nausea and Vomiting, Adult ED Add. Discharge Instructions: Plan: 1. Take Zofran 4mg by mouth every 6 hours as needed for nausea. 2. Drink clear liquids and advance slowly as tolerated. 3. Use Miralax daily to help soften stools and promote bowel movement. 4. Call home health in the morning to schedule intake appointment so you are able to have therapy assistance. 5. Return for any new, concerning, or worsening symptoms. All discharge instructions reviewed with patient and/or family. Voiced understanding. Scripts Ondansetron (Ondansetron Odt) 4 Mg Tab.rapdis 4 MG PO Q6H PRN for NAUSEA-1ST LINE, #30 TAB 0 Refills Prov: ABHILASH ARROYO DOUBLE CUT SAWYER 11/02/21 ABHILASH ARROYO DOUBLE CUT SAWYER Nov 02, 2021 15:44
[2021-11-02] MEDS ORDERED: ONDANSETRON 4 MG/2 ML (SDV) Z0FRAN IVP ONE (15:45)
[2021-11-02] MEDS ORDERED: NS IV 500 ML 500 ML IV ONE (15:45)
[2021-11-02] MEDS ORDERED: NS IV 1000 ML 1,000 ML IV SCH (16:45)
[2021-11-02 16:47] LABS: BASOPHILS # (AUTO) 0.1 10^3/uL (0.0-0.1); BASOPHILS % (AUTO) 1 % (0-10); EOSINOPHILS # (AUTO) 0.2 10^3/uL (0.0-0.3); EOSINOPHILS % (AUTO) 2 % (0-10); HEMATOCRIT 41 % (40-54); HEMOGLOBIN 14.3 g/dL (13.3-17.7); LYMPHOCYTES # (AUTO) 1.2 10^3/uL (1.0-4.0); LYMPHOCYTES % (AUTO) 9 % (12-44); MEAN CORPUSCULAR HEMOGLOBIN 32 pg (25-34); MEAN CORPUSCULAR HGB CONC 35 g/dL (32-36); MEAN CORPUSCULAR VOLUME 93 fL (80-99); MONOCYTES % (AUTO) 8 % (0-12); NEUTROPHILS # (AUTO) 10.3 10^3/uL (1.8-7.8); NEUTROPHILS % (AUTO) 80 % (42-75); PLATELET COUNT 201 10^3/uL (130-400); WHITE BLOOD COUNT 12.9 10^3/uL (4.3-11.0)
[2021-11-02 16:49] LABS: BILIRUBIN,URINE NEGATIVE (NEGATIVE); CLARITY,URINE CLEAR; COLOR,URINE YELLOW; GLUCOSE, URINE (UA) NEGATIVE (NEGATIVE); KETONES,URINE NEGATIVE (NEGATIVE); LEUKOCYTE ESTERASE ,URINE NEGATIVE (NEGATIVE); NITRITE,URINE NEGATIVE (NEGATIVE); PH,URINE 6.5 (5-9); PROTEIN,URINE NEGATIVE (NEGATIVE)
[2021-11-02 16:55] LABS: BACTERIA,URINE NEGATIVE /HPF; RBC,URINE RARE /HPF; WBC,URINE RARE /HPF
[2021-11-02 16:55] LABS: ALBUMIN 3.3 GM/DL (3.2-4.5); POTASSIUM 3.9 MMOL/L (3.6-5.0)
[2021-11-02 16:56] LABS: CALCIUM 8.6 MG/DL (8.5-10.1)
[2021-11-02 16:57] LABS: TOTAL PROTEIN 5.6 GM/DL (6.4-8.2)
[2021-11-02 16:59] LABS: BILIRUBIN,TOTAL 0.8 MG/DL (0.1-1.0)
[2021-11-02] MEDS ORDERED: DIATRIZOATE MEGLUM/SODIUM 37% 120 ML (GASTROGRAFIN) PO ONE (17:00)
[2021-11-02 17:01] LABS: CREATININE SERUM 0.78 MG/DL (0.60-1.30)
--- NOTE | 2021-11-02 18:36 | Diagnostic Imaging Report ---
PROCEDURE: CT abdomen and pelvis without contrast. TECHNIQUE: Multiple contiguous axial images were obtained through the abdomen and pelvis without the use of intravenous contrast. Auto Exposure Controls were utilized during the CT exam to meet ALARA standards for radiation dose reduction. INDICATION: Fall, pain, vomiting. History of malignancy, undergoing chemotherapy. COMPARED with study 10/28/2021 FINDINGS: The lung bases nonacute. No fracture or acute osseous pathology. The unopacified liver unremarkable. There is a gallstone present but no biliary dilatation or secondary features of cholecystitis. There is reflux of enteric contrast into a small hiatal hernia. No gastric outlet obstruction. There is an elevated colonic fecal load suggestive of mild constipation but no focal impaction. The adrenals are negative. The spleen unremarkable. There is no intra or retroperitoneal hemorrhage. There are aortoiliac atherosclerotic vascular calcifications without aneurysm. Prior surgical repair of the intra-abdominal wall present without residual or recurrent hernia. No abdominal wall fluid collection. There are degenerative changes to the spine and bony pelvis but no acute osseous pathology. There is no diverticulitis. The unobstructed kidneys unremarkable. No radiopaque stone. No perienteric or pericolonic edema. No inflammatory process. No mesenteric or retroperitoneal adenopathy. IMPRESSION: 1. No fracture, hemorrhage or evidence of metastatic disease. No inflammatory process or acute appearing abnormalities identified. 2. Mild constipation without impaction or obstruction. 3. Small hiatal hernia with likely gastroesophageal reflux. 4. Cholelithiasis without biliary dilatation. Dictated by: Dictated on workstation # [id number]
[2021-11-02] MEDS ORDERED: ONDA4TAB11 PO (19:21)
[2021-11-02 19:30] VITALS: BP 141/87
== END 2021-11-02 19:30 | disposition home or self-care (01) ==
LOC: EDUNIT# 14:49 → ER 14:52
DX: M54.50 Low back pain, unspecified (principal); R11.0 Nausea; C44.90 Unspecified malignant neoplasm of skin, unspecified; Z79.899 Other long term (current) drug therapy; W18.2XXA Fall in (into) shower or empty bathtub, initial encounter
CPT/HCPCS: 36415; 74176; 80053; 81000; 85025

== ENCOUNTER → 2021-11-02 | Outpatient (CLI) | payer MEDICARE, BC ==
[~2021-11-02] MED LIST changes: +BISA10SU8 PR; +LACT10SO27 PO
--- NOTE | 2021-11-02 15:22 | Diagnostic Imaging Report ---
EXAMINATION: Lumbar spine radiograph. EXAM DATE: 11/02/2021, 3:00 p.m. COMPARISON: 06/21/2017. HISTORY: Back pain after fall. TECHNIQUE: Three views. FINDINGS: Vertebral body alignment and heights are maintained. Mild multilevel disc height loss. There is multilevel lumbar spondylosis. No acute fracture is seen. Multilevel facet hypertrophy. IMPRESSION: 1. Degenerative changes of the lumbar spine without acute osseous abnormality. Dictated by: Dictated on workstation # [id number]
--- NOTE | 2021-11-02 15:24 | Diagnostic Imaging Report ---
EXAMINATION: Pelvis and bilateral hip radiographs. EXAM DATE: 11/02/2021, 3:00 p.m. COMPARISON: 10/28/2021. HISTORY: Hip pain after fall. TECHNIQUE: Five views. FINDINGS: There is no acute fracture, dislocation, or destructive osseous process. Degenerative changes of both hips. The soft tissues are normal. IMPRESSION: 1. Degenerative changes of the hips without acute osseous abnormality. Dictated by: Dictated on workstation # [id number]
== END ==
LOC: RAD 14:13
PROVIDERS: ATTEND Family Medicine
DX: M47.816 Spondylosis without myelopathy or radiculopathy, lumbar region (principal); M25.551 Pain in right hip; M25.552 Pain in left hip
CPT/HCPCS: 72100; 73523

== ENCOUNTER → 2021-11-22 | Outpatient (CLI) | payer MEDICARE, BC ==
--- NOTE | 2021-11-23 15:37 | Diagnostic Imaging Report ---
INDICATION: Malignant melanoma of the upper back, restaging. Serum blood glucose level at the time of injection is 120 mg/dL. Patient was administered 11.8 mCi F-18 FDG intravenously in the right antecubital location and whole body PET imaging was performed. Noncontrast CT was performed for attenuation correction and anatomic correlation. CORRELATION is made with prior whole body PET/CT study from 07/19/2021. There is symmetric activity throughout the brain. Soft tissues of the neck are unremarkable. No mediastinal or hilar hypermetabolism is seen. No pulmonary parenchymal hypermetabolism is identified. There is normal physiologic activity throughout the gastrointestinal and genitourinary tracts of the abdomen and pelvis. No suspicious hypermetabolism is seen. The lower extremities are unremarkable. IMPRESSION: Unremarkable whole body PET/CT study. No suspicious sites of hypermetabolism are identified. Dictated by: Dictated on workstation # [id number]
== END ==
LOC: RAD 13:15
PROVIDERS: ATTEND Internal Medicine Hematology & Oncology
DX: C43.59 Malignant melanoma of other part of trunk (principal)
CPT/HCPCS: 78816; A9552

== ENCOUNTER 2021-11-24 12:54 | Outpatient (RCR) | payer MEDICARE, BC ==
[2021-11-24 13:30] LABS: BASOPHILS # (AUTO) 0.1 10^3/uL (0.0-0.1); BASOPHILS % (AUTO) 1 % (0-10); EOSINOPHILS # (AUTO) 0.1 10^3/uL (0.0-0.3); EOSINOPHILS % (AUTO) 1 % (0-10); HEMATOCRIT 39 % (40-54); HEMOGLOBIN 13.8 g/dL (13.3-17.7); LYMPHOCYTES # (AUTO) 1.9 10^3/uL (1.0-4.0); LYMPHOCYTES % (AUTO) 19 % (12-44); MEAN CORPUSCULAR HEMOGLOBIN 32 pg (25-34); MEAN CORPUSCULAR HGB CONC 36 g/dL (32-36); MEAN CORPUSCULAR VOLUME 90 fL (80-99); MEAN PLATELET VOLUME 8.8 fL (9.0-12.2); MONOCYTES # (AUTO) 1.1 10^3/uL (0.0-1.0); MONOCYTES % (AUTO) 12 % (0-12); NEUTROPHILS # (AUTO) 6.5 10^3/uL (1.8-7.8); NEUTROPHILS % (AUTO) 67 % (42-75); PLATELET COUNT 273 10^3/uL (130-400); WHITE BLOOD COUNT 9.7 10^3/uL (4.3-11.0)
[2021-11-24 13:39] LABS: ALBUMIN 3.1 GM/DL (3.2-4.5); BILIRUBIN,TOTAL 0.7 MG/DL (0.1-1.0); CALCIUM 8.8 MG/DL (8.5-10.1); CREATININE SERUM 0.8 MG/DL (0.60-1.30); POTASSIUM 4.5 MMOL/L (3.6-5.0); TOTAL PROTEIN 5.5 GM/DL (6.4-8.2)
== END 2021-11-26 | disposition home or self-care (01) ==
LOC: ONC 12:54
PROVIDERS: ATTEND Internal Medicine Hematology & Oncology
DX: C43.59 Malignant melanoma of other part of trunk (principal); I10 Essential (primary) hypertension; I25.10 Atherosclerotic heart disease of native coronary artery without angina pectoris; E11.9 Type 2 diabetes mellitus without complications; E78.5 Hyperlipidemia, unspecified; E66.9 Obesity, unspecified
CPT/HCPCS: 80053; 83935; 84300; 84443; 85025; G0463; 36415; 99213

== ENCOUNTER 2021-12-03 02:30 | Inpatient (IN) | payer MEDICARE, BC ==
[~2021-12-03] VITALS: Ht 182.8 cm; Wt 95.6 kg
[2021-12-03] VITALS (7 sets, daily range): BP systolic 91–107; BP diastolic 54–71
[2021-12-03] MEDS ORDERED: LIDOCAINE UROJET 2% GEL 10 ML PKG TOP ONE (02:45)
[2021-12-03] MEDS ORDERED: ONDANSETRON 4 MG/2 ML (SDV) Z0FRAN IVP ONE (02:45)
[2021-12-03] MEDS ORDERED: LACTATED RINGERS 1,000 ML IV ONE (02:45)
[2021-12-03 02:51] LABS: BASOPHILS # (AUTO) 0.1 10^3/uL (0.0-0.1); BASOPHILS % (AUTO) 1 % (0-10); EOSINOPHILS % (AUTO) 0 % (0-10); HEMATOCRIT 41 % (40-54); HEMOGLOBIN 14.4 g/dL (13.3-17.7); LYMPHOCYTES # (AUTO) 0.8 10^3/uL (1.0-4.0); LYMPHOCYTES % (AUTO) 10 % (12-44); MEAN CORPUSCULAR HEMOGLOBIN 32 pg (25-34); MEAN CORPUSCULAR HGB CONC 35 g/dL (32-36); MEAN CORPUSCULAR VOLUME 90 fL (80-99); MEAN PLATELET VOLUME 8.8 fL (9.0-12.2); MONOCYTES # (AUTO) 1.1 10^3/uL (0.0-1.0); MONOCYTES % (AUTO) 15 % (0-12); NEUTROPHILS # (AUTO) 5.8 10^3/uL (1.8-7.8); NEUTROPHILS % (AUTO) 74 % (42-75); PLATELET COUNT 266 10^3/uL (130-400); WHITE BLOOD COUNT 7.8 10^3/uL (4.3-11.0)
[2021-12-03 03:00] LABS: ALBUMIN 3.1 GM/DL (3.2-4.5); CHLORIDE 91 MMOL/L (98-107); POTASSIUM 4.1 MMOL/L (3.6-5.0)
[2021-12-03 03:01] LABS: PROTHROMBIN TIME PATIENT 13.5 SEC (12.2-14.7)
[2021-12-03 03:02] LABS: AMYLASE 34 U/L (25-125); CALCIUM 8.6 MG/DL (8.5-10.1)
[2021-12-03 03:03] LABS: GLUCOSE 113 MG/DL (70-105); TOTAL PROTEIN 5.6 GM/DL (6.4-8.2)
[2021-12-03 03:04] LABS: BILIRUBIN,TOTAL 0.6 MG/DL (0.1-1.0); CARBON DIOXIDE 20 MMOL/L (21-32)
[2021-12-03 03:06] LABS: BILIRUBIN,URINE NEGATIVE (NEGATIVE); CLARITY,URINE CLEAR; COLOR,URINE YELLOW; GLUCOSE, URINE (UA) NEGATIVE (NEGATIVE); KETONES,URINE NEGATIVE (NEGATIVE); LEUKOCYTE ESTERASE ,URINE NEGATIVE (NEGATIVE); NITRITE,URINE NEGATIVE (NEGATIVE); PH,URINE 5.5 (5-9); PROTEIN,URINE NEGATIVE (NEGATIVE)
[2021-12-03 03:06] LABS: ALKALINE PHOSPHATASE 71 U/L (40-136); CREATININE SERUM 0.76 MG/DL (0.60-1.30); GFR ESTIMATED 86
[2021-12-03 03:07] LABS: BUN/CREATININE RATIO 13
[2021-12-03 03:09] LABS: ALANINE AMINOTRANSFERASE 16 U/L (0-55); MAGNESIUM 1.3 MG/DL (1.6-2.4)
[2021-12-03 03:10] LABS: CREATINE KINASE 25 U/L (30-200); LIPASE 15 U/L (8-78)
[2021-12-03 03:17] LABS: CREATINE KINASE MB 1.7 NG/ML (<6.6)
[2021-12-03 03:21] LABS: SODIUM 122 MMOL/L (135-145)
[2021-12-03 03:21] LABS: BACTERIA,URINE TRACE /HPF; WBC,URINE RARE /HPF
[2021-12-03 03:30] LABS: TSH (THYROID ANALYZER) 3.87 UIU/ML (0.35-4.94)
--- NOTE | 2021-12-03 03:31 | ED General ---
General Chief Complaint: General Problems/Pain Stated Complaint: WEAKNESS,VOMITING Source of Information: Patient (PT IS POOR HISTORIAN WITH DEMENTIA), Spouse Exam Limitations: Other (PT AND ARE LIMITED HISTORIANS) History of Present Illness Date Seen by Provider: Dec 03, 2021 Time Seen by Provider: 02:31 Initial Comments PT ARRIVES VIA EMS FROM HOME, ARRIVES A SHORT TIME LATER PT HAS BEEN SICK ALL DAY WITH DECREASED APPETITE, "TRYING TO GET PHLEGM UP" BUT HAS BEEN UNABLE TO STATES THAT "HE VOMITED UP EVERYTHING HE HAD IN HIS STOMACH" SEVERAL TIMES PT STATES THAT HE "CAN'T SWALLOW" BUT ALSO REPEATS THAT HE "CAN'T GET PHLEGM UP" ALSO REPEATS SEVERAL TIMES THAT HIS BUTT HURTS ON DIRECT QUESTIONING ABOUT SYMPTOMS, PT STATES THAT HE HAS HAD A COUGH, FEELS A LITTLE SHORT OF BREATH DENIES CHEST PAIN DENIES ABDOMINAL PAIN DENIES NAUSEA OR VOMITING OR DIARRHEA--BUT STATES THAT HE HAS BEEN VOMITING TODAY PT STATES HE IS VOIDING NORMALLY DENIES HEADACHE PT HAS CHRONIC GENERALIZED WEAKNESS AND DEBILITY, THAT HAS PROGRESSIVELY BEEN GETTING WORSE PT HAS BEEN ESSENTIALLY BED OR CHAIR BOUND FOR QUITE SOME TIME STATES THAT SHE CAN HELP HIM TO STAND TO A WALKER TO USE BEDSIDE COMMODE--OTHERWISE PT IS NON-AMBULATORY NO KNOWN FEVER PT HAS BEEN DX WITH METASTATIC MELANOMA AND RECEIVED KEYTRUDA, AND IT HAS BEEN STOPPED HE HAD A PET SCAN 2 WEEKS AGO, THAT SAID WAS "CLEAR"--THIS WAS REVIEWED IN HIS CHART, AND PT DID HAVE A PET/CT SCAN ON 11/22/21 AND DID NOT SHOW ANY HYPERMETABOLIC ACTIVITY. PCP: DR. MORENO OIL WINTERIZER: DR. LEGER ONCOLOGY: DR. SEGURA Allergies and Home Medications Allergies Coded Allergies: hydrocodone (Unverified Allergy, Mild, 03/22/07) amlodipine (Unverified Allergy, Unknown, 10/25/13) benazepril (Unverified Allergy, Unknown, 10/25/13) carbidopa (Unverified Allergy, Unknown, 05/18/21) codeine (Verified Allergy, Unknown, 09/02/05) levodopa (Unverified Allergy, Unknown, 05/18/21) telmisartan (Unverified Allergy, Unknown, 10/25/13) Patient Home Medication List Home Medication List Reviewed: Yes ALPRAZolam (ALPRAZolam) 0.25 Mg Tablet, 0.25 MG PO Q6H PRN for ANXIETY, (Reported) Entered as Reported by: FRANSISCA CAMEJO on 12/03/211035 Last Action: Reviewed Acetaminophen/Diphenhydramine (Tylenol Pm Ex-Strength Caplet) 500 Mg-25 Mg Tablet, 2 EACH PO HS, (Reported) Entered as Reported by: FRANSISCA CAMEJO on 12/03/211035 Last Action: Reviewed Aspirin (Aspirin EC) 81 Mg Tablet.dr, 81 MG PO HS, (Reported) Entered as Reported by: FRANSISCA CAMEJO on 12/03/211035 Last Action: Reviewed Docusate Sodium (Docusate Sodium) 100 Mg Capsule, 100 MG PO BID, (Reported) Entered as Reported by: FRANSISCA CAMEJO on 12/03/211035 Last Action: Reviewed Furosemide (Furosemide) 20 Mg Tablet, 20 MG PO DAILY, (Reported) Entered as Reported by: FRANSISCA CAMEJO on 12/03/211035 Last Action: Reviewed Guaifenesin/Dextromethorphan (Mucinex Dm ER 1,200-60 mg Tab) 1,200 Mg-60 Mg Tbmp.12hr, 1 EACH PO Q12H, (Reported) Entered as Reported by: FRANSISCA CAMEJO on 12/03/211035 Last Action: Reviewed Hydralazine HCl (Hydralazine HCl) 50 Mg Tablet, 50 MG PO 0600,1400,2200, (Reported) Entered as Reported by: FRANSISCA CAMEJO on 12/03/211035 Last Action: Reviewed Hydralazine HCl (Hydralazine HCl) 25 Mg Tablet, 25 MG PO Q8H PRN for BLOOD PRESSURE, (Reported) Entered as Reported by: FRANSISCA CAMEJO on 12/03/211035 Last Action: Reviewed Hydrocodone/Acetaminophen (Hydrocodone-Acetamin 5-325 mg) 5 Mg-325 Mg Tablet, 1 EA PO Q8H PRN for PAIN-MODERATE (5-7), (Reported) Entered as Reported by: FRANSISCA CAMEJO on 12/03/211035 Last Action: Reviewed Megestrol Acetate (Megestrol Acetate) 40 Mg Tablet, 40 MG PO QID PRN for APPETITE STIMULATION, (Reported) Entered as Reported by: FRANSISCA CAMEJO on 12/03/211035 Last Action: Reviewed Metformin HCl (Metformin HCl ER) 500 Mg Tab.er.24h, 500 MG PO BIDAC, (Reported) Entered as Reported by: FRANSISCA CAMEJO on 12/03/211035 Last Action: Reviewed Ondansetron (Ondansetron Odt) 8 Mg Tab.rapdis, 8 MG PO Q6H PRN for NAUSEA/VOMITING-1ST LINE, (Reported) Entered as Reported by: FRANSISCA CAMEJO on 12/03/211035 Last Action: Reviewed Pantoprazole Sodium (Pantoprazole Sodium) 40 Mg Tablet.dr, 40 MG PO BIDAC, (Reported) Entered as Reported by: FRANSISCA CAMEJO on 12/03/211035 Last Action: Reviewed Potassium Chloride (K-Tab ER) 10 Meq Tablet.er, 10 MEQ PO DAILY, (Reported) Entered as Reported by: FRANSISCA CAMEJO on 12/03/211035 Last Action: Reviewed Propranolol HCl (Propranolol HCl) 60 Mg Tablet, 60 MG PO BID, (Reported) Entered as Reported by: FRANSISCA CAMEJO on 12/03/211035 Last Action: Reviewed Ubidecarenone (Coq-10) 100 Mg Capsule, 100 MG PO DAILY, (Reported) Entered as Reported by: FRANSISCA CAMEJO on 12/03/21 1038 Last Action: Reviewed Discontinued Medications Aspirin (Aspirin EC) 81 Mg Tablet.dr, 81 MG PO HS Discontinued Reason: Duplicate Order Prescribed by: JOSH MORENO on 03/31/21 7657 Last Action: Discontinued Bisacodyl (Bisacodyl) 10 Mg Supp.rect, 10 MG CO DAILY PRN Discontinued Reason: Duplicate Order Prescribed by: JOSH MORENO on 10/29/211227 Last Action: Discontinued Docusate Sodium (Dulcolax Stool Softener) 100 Mg Capsule, 100 MG PO BID Discontinued Reason: Duplicate Order Prescribed by: JOSH MORENO on 10/29/211227 Last Action: Discontinued Hydralazine HCl (Hydralazine HCl) 50 Mg Tablet, 25 MG PO TID PRN for BLOOD PRESSURE Discontinued Reason: Duplicate Order Prescribed by: LUCILLE REED on 06/20/21 1103 Last Action: Discontinued Hydralazine HCl (Hydralazine HCl) 50 Mg Tablet, 50 MG PO QID Discontinued Reason: Duplicate Order Prescribed by: JOSH MORENO on 10/29/211227 Last Action: Discontinued Lactulose (Lactulose) 10 Gram/15 Ml (15 Ml) Solution, 10 GM PO DAILY Discontinued Reason: Duplicate Order Prescribed by: JOSH MORENO on 10/29/211227 Last Action: Discontinued Metformin HCl (Metformin HCl) 500 Mg Tablet, 500 MG PO BIDAC, (Reported) Discontinued Reason: Duplicate Order Entered as Reported by: PASCUAL PEREZ on 05/19/21 0900 Last Action: Discontinued Ondansetron (Ondansetron Odt) 4 Mg Tab.rapdis, 4 MG PO Q6H PRN for NAUSEA-1ST LINE Discontinued Reason: Duplicate Order Prescribed by: ABHILASH ARROYO on 11/02/211920 Last Action: Discontinued Pantoprazole Sodium (Pantoprazole Sodium) 40 Mg Tablet.dr, 40 MG PO BIDAC Discontinued Reason: Duplicate Order Prescribed by: JOSH MORENO on 03/31/21928 Last Action: Discontinued Propranolol HCl (Propranolol HCl ER) 60 Mg Cap.sa.24h, 60 MG PO BID Discontinued Reason: Duplicate Order Prescribed by: ANA VENTURA on 05/18/21956 Last Action: Discontinued Ubidecarenone (Co Q-10) 100 Mg Capsule, 100 MG PO DAILY Discontinued Reason: Duplicate Order Prescribed by: JOSH MORENO on 03/31/21928 Last Action: Discontinued Review of Systems Review of Systems Constitutional: malaise, weakness Respiratory: cough, short of breath Cardiovascular: No chest pain; edema Gastrointestinal: see HPI; No abdominal pain; loss of appetite, vomiting Genitourinary: no symptoms reported Psychiatric/Neurological: No Symptoms Reported, Pre-Existing Deficit (DEMENTIA) Past Ppzmves-Uhqknf-Bxnjnu Hx Immunizations Up To Date First/Initial COVID19 Vaccinat: FEB 2020 Second COVID19 Vaccination Jose: APRIL 2020 Third COVID19 Vaccination Date: NOV 2020 Seasonal Allergies Seasonal Allergies: No Past Medical History Surgery/Hospitalization HX: melanoma, hernia x3, bilat cea, turp, ortho, niddm, htn, high lipids, TIA, DELERIUM, GERD, CAD, PARKINSONS, ANXIETY, PVD CABG Surgeries: Yes (MENISCUS REPAIR, TURP, HERNIA X3, bilateral ENDARTERECTOMY,2005) Abdominal, Cardiac, CABG, Orthopedic, Transurethral Resection, Vascular Surgery Respiratory: No Currently Using CPAP: No Currently Using BIPAP: No Cardiac: Yes (CABG X3 VESSELS;BILAT CAROTID ENDARTERECTOMY; RBBB) Chronic Edema/Swelling, Coronary Artery Disease, High Cholesterol, Hypertension, Peripheral Vascular Neurological: Yes (HYPERTENSIVE ENCEPHALOPATHY, ESSENTIAL TREMORS UPPER EXTREMITIES) Dementia, TIA Reproductive Disorders: No Sexually Transmitted Disease: No Genitourinary: Yes Benign Prostatic Hyperpl, Prostate Problems Gastrointestinal: Yes Abdominal Hernia, Gastroesophageal Reflux, Chronic Constipation Musculoskeletal: Yes (KNEE SURGERY; GENERALIZED WEAKNESS; FALLS; ) Arthritis Endocrine: Yes Diabetes, Non-Insulin dep HEENT: Yes Hearing Impairment: Hard of Hearing, Hearing Aide Right Cancer: Yes Skin, Melanoma Did You Recieve Any Treatments: Yes What Type of Treatment Did You: Chemotherapy, Surgical Intervention Psychosocial: Yes Sleep Difficulties, Anxiety Integumentary: Yes (MELANOMA ON BACK) Blood Disorders: No Family Medical History Heart Disease, Hypertension SOCIAL HISTORY: -NO SMOKING -RARE ALCOHOL USE -NO DRUG USE PAST SURGICAL HISTORY: -HERNIA REPAIR X 3 -TURP -KNEE SURGERY FOR TORN MENISCUS -BILATERAL CAROTID ENDARTERECTOMY 2005 -3-VESSEL CABG -REMOVAL OF MELANOMA OF BACK WITH LYMPH NODE BIOPSY RIGHT AXILLA 04/2021 -PORT RIGHT CHEST 04/2021 ADDITONAL PMH: -MULTIPLE EPISODES OF 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 0.0oz. 104.450077bv; 29.00 BMI Method: General Appearance: No Apparent Distress, WD/WN, Other (SOMEWHAT LETHARGIC, CONSTANTLY TRYING TO SPIT, BUT IS NOT ACTUALLY SPITTING ANYTHING UP. NO COUGH OR DYSPNEA) Neck: Normal Inspection Respiratory: Normal Breath Sounds, No Accessory Muscle Use, No Respiratory Distress Cardiovascular: Regular Rate, Rhythm, No Murmur, JVD Gastrointestinal: Normal Bowel Sounds, Non Tender, Soft; No Distended Extremity: Pedal Edema (4++ BILATERAL PEDAL EDEMA) Neurologic/Psychiatric: Alert, No Motor/Sensory Deficits, tip mender II-XII Norm as Tested, Other (PT WITH POOR MEMORY, BUT IS ORIENTED TO PERSON, PLACE AND GROSSLY ORIENTED TO SITUATION. SOMEWHAT CONFUSED TO TIME. ) Skin: Normal Color, Warm/Dry Progress/Results/Core Measures Suspected Sepsis SIRS Temperature: Pulse: Respiratory Rate: Laboratory Tests 12/03/21 02:38: White Blood Count 7.8 Blood Pressure / Mean: Laboratory Tests 12/03/21 02:38: Creatinine 0.76, INR Comment 1.0, Platelet Count 266, Total Bilirubin 0.6 Results/Orders Lab Results Laboratory Tests Test 12/03/21 02:38 12/03/21 02:50 Range/Units White Blood Count 7.8 4.3-11.0 10^3/uL Red Blood Count 4.57 4.30-5.52 10^6/uL Hemoglobin 14.4 13.3-17.7 g/dL Hematocrit 41 40-54 % Mean Corpuscular Volume 90 80-99 fL Mean Corpuscular Hemoglobin 32 25-34 pg Mean Corpuscular Hemoglobin Concent 35 32-36 g/dL Red Cell Distribution Width 12.3 10.0-14.5 % Platelet Count 266 130-400 10^3/uL Mean Platelet Volume 8.8 L 9.0-12.2 fL Immature Granulocyte % (Auto) 1 % Neutrophils (%) (Auto) 74 42-75 % Lymphocytes (%) (Auto) 10 L 12-44 % Monocytes (%) (Auto) 15 H 0-12 % Eosinophils (%) (Auto) 0 0-10 % Basophils (%) (Auto) 1 0-10 % Neutrophils # (Auto) 5.8 1.8-7.8 10^3/uL Lymphocytes # (Auto) 0.8 L 1.0-4.0 10^3/uL Monocytes # (Auto) 1.1 H 0.0-1.0 10^3/uL Eosinophils # (Auto) 0.0 0.0-0.3 10^3/uL Basophils # (Auto) 0.1 0.0-0.1 10^3/uL Immature Granulocyte # (Auto) 0.1 0.0-0.1 10^3/uL Prothrombin Time 13.5 12.2-14.7 SEC INR Comment 1.0 0.8-1.4 Activated Partial Thromboplast Time 26 24-35 SEC Sodium Level 122 *L 135-145 MMOL/L Potassium Level 4.1 3.6-5.0 MMOL/L Chloride Level 91 L 98-107 MMOL/L Carbon Dioxide Level 20 L 21-32 MMOL/L Anion Gap 11 5-14 MMOL/L Blood Urea Nitrogen 10 7-18 MG/DL Creatinine 0.76 0.60-1.30 MG/DL Estimat Glomerular Filtration Rate 86 BUN/Creatinine Ratio 13 Glucose Level 113 H 70-105 MG/DL Calcium Level 8.6 8.5-10.1 MG/DL Corrected Calcium 9.3 8.5-10.1 MG/DL Magnesium Level 1.3 L 1.6-2.4 MG/DL Total Bilirubin 0.6 0.1-1.0 MG/DL Aspartate Amino Transf (AST/SGOT) 18 5-34 U/L Alanine Aminotransferase (ALT/SGPT) 16 0-55 U/L Alkaline Phosphatase 71 40-136 U/L Total Creatine Kinase 25 L 30-200 U/L Creatine Kinase MB 1.7 <6.6 NG/ML Myoglobin 32.3 10.0-92.0 NG/ML Troponin I < 0.028 <0.028 NG/ML B-Type Natriuretic Peptide 59.2 <100.0 PG/ML Total Protein 5.6 L 6.4-8.2 GM/DL Albumin 3.1 L 3.2-4.5 GM/DL Amylase Level 34 25-125 U/L Lipase 15 8-78 U/L TSH [place] Testing 3.87 0.35-4.94 UIU/ML Urine Color YELLOW Urine Clarity CLEAR Urine pH 5.5 5-9 Urine Specific Media 1.020 1.016-1.022 Urine Protein NEGATIVE NEGATIVE Urine Glucose (UA) NEGATIVE NEGATIVE Urine Ketones NEGATIVE NEGATIVE Urine Nitrite NEGATIVE NEGATIVE Urine Bilirubin NEGATIVE NEGATIVE Urine Urobilinogen 0.2 < = 1.0 MG/DL Urine Leukocyte Esterase NEGATIVE NEGATIVE Urine RBC (Auto) NEGATIVE NEGATIVE Urine RBC NONE /HPF Urine WBC RARE /HPF Urine Crystals NONE /LPF Urine Bacteria TRACE /HPF Urine Casts NONE /LPF Urine Mucus SMALL H /LPF Urine Culture Indicated NO Influenza Type A (RT-PCR) Not Detected Not Detecte Influenza Type B (RT-PCR) Not Detected Not Detecte SARS-CoV-2 RNA (RT-PCR) Not Detected Not Detecte My Orders Orders - IMAN,KYLEE K DO Lactated Ringers (Lr 1000 Ml Iv Solution (12/03/21 02:45) Ondansetron Injection (Zofran Injectio (12/03/21 02:45) Ua Culture If Indicated (12/03/21 02:32) Amylase (12/03/21 02:32) Cbc With Automated Diff (12/03/21 02:32) Comprehensive Metabolic Panel (12/03/21 02:32) Lipase (12/03/21 02:32) Magnesium (12/03/21 02:32) Ed Iv/Invasive Line Start (12/03/21 02:32) Monitor-Rhythm Ecg Trace Only (12/03/21 02:32) Ed Iv/Invasive Line Start (12/03/21 02:32) Chest 1 View, Ap/Pa Only (12/03/21 02:35) Covid 19 Inhouse Test (12/03/21 02:36) Influenza A And B By Pcr (12/03/21 02:36) Isolation Central Supply Req (12/03/21 02:36) Ekg Tracing (12/03/21 02:40) Catheter(Urinary) Insert & Ass 03,15 (12/03/21 02:40) O2 (12/03/21 02:40) Bnp [place] (12/03/21 02:40) Creatine Kinase (12/03/21 02:40) Creatine Kinase Mb (12/03/21 02:40) Protime With Inr (12/03/21 02:40) Partial Thromboplastin Time (12/03/21 02:40) Thyroid Analyzer (12/03/21 02:40) Myoglobin Serum (12/03/21 02:40) Troponin I [place] (12/03/21 02:40) Lidocaine 2% (Urojet) (Xylocaine Urojet) (12/03/21 02:45) Medications Given in ED Vital Signs/I&O 12/03/21 12/03/21 02:31 02:31 Temp 36.8 Pulse 88 Resp 20 B/P (MAP) 111/77 (88) Pulse Ox 96 O2 Delivery Room Air Room Air Capillary Refill : Progress Note : Progress Note NO DETERIORATION IN PT'S CONDITION DURING ER STAY NO COUGH NO DYSPNEA NO HYPOXIA NO ABNORMAL VITALS NO FEVER NO COMPLAINTS OF NAUSEA, AND NO VOMITING AT ANY TIME DURING ER STAY. NO ABDOMINAL PAIN NO COMPLAINTS OF ANY KIND DURING ER STAY DISCUSSED CODE STATUS WITH AND SHE STATES HE IS DNR/DNI ECG Initial ECG Impression Date: Dec 03, 2021 Initial ECG Impression Time: 02:46 Initial ECG Rate: 86 Initial ECG Rhythm: Normal Sinus (RBBB) Initial ECG Comparisson: Unchanged Diagnostic Imaging Comments CXR--BIBASILAR ATELECTASIS, OTHERWISE NO ACUTE PROCESS. PENDING RADIOLOGIST REVIEW Reviewed: Reviewed by Me Departure Communication (Admissions) 0330--ATTEMPTING TO CONTACT DR. MORENO, NO ANSWER ON CELL PHONE, MESSAGE LEFT. HOME PHONE NUMBER IS NOT WORKING AT THIS TIME [phone]--SPOKE WITH DR. REED, SHE ACCEPTS PT FOR ADMIT FOR DR. MORENO, SHE WILL CONTACT DR. MORENO IN THE MORNING. SHE IS FAMILIAR WITH PT FROM PREVIOUS ADMITS. SHE WILL ALSO BE ASSUMING CARE FOR THE WEEKEND, STARTING AT NOON TODAY. Impression Primary Impression: Nausea and vomiting Additional Impressions: Hyponatremia Hypomagnesemia GENERALIZED WEAKNESS AND DEBILITY Bedbound Dementia HX OF METASTATIC MELANOMA Disposition: ADMITTED INPATIENT Condition: Stable Admissions Decision to Admit Reason: Admit from ER (General) Decision to Admit/Date: Dec 03, 2021 Time/Decision to Admit Time: 03:35 Departure-Patient Inst. Referrals: JOSH MORENO MD (PCP/Family) Primary Care Physician KYLEE VALERIO DO Dec 03, 2021 03:31
[2021-12-03] MEDS ORDERED: ONDANSETRON 4 MG/2 ML (SDV) Z0FRAN IV PRN (05:45)
[2021-12-03] MEDS: MAGNESIUM 1 GM/D5W 100 ML IVPB IV SCH ×2 (06:01→06:05)
--- NOTE | 2021-12-03 07:50 | Diagnostic Imaging Report ---
INDICATION: COUGH. TECHNIQUE: Single view chest 3:03 AM. CORRELATION STUDY: 06/19/2021 FINDINGS: Poststernotomy change. Heart size, mediastinum, and vasculature overall are generally stable. Right IJ Eiapmo-i-Ouia catheter tip over the SVC. Chronic appearing changes about the lung parenchyma. No infiltrate. IMPRESSION: 1. Stable chest demonstrating no acute cardiopulmonary abnormality. Dictated by: Dictated on workstation # [id number]
--- NOTE | 2021-12-03 08:06 | Tele-ICU Consult ---
History of Present Illness History of Present Illness Date Seen by Provider: Dec 03, 2021 Time Seen by Provider: 08:01 Date of Admission 86 yo M came to ED with cough, SOB, weakness Hx of metastatic melenoma has been on Kaytruda In ED Na 122, started on LR Mg 1.3 trop and BNP ok CXR showed bibasilar atelectasis, EKG ok, PMH episodes of HTN crisis, BP ok today Allergies and Home Medications Allergies Coded Allergies: hydrocodone (Unverified Allergy, Mild, 03/22/07) amlodipine (Unverified Allergy, Unknown, 10/25/13) benazepril (Unverified Allergy, Unknown, 10/25/13) carbidopa (Unverified Allergy, Unknown, 05/18/21) codeine (Verified Allergy, Unknown, 09/02/05) levodopa (Unverified Allergy, Unknown, 05/18/21) telmisartan (Unverified Allergy, Unknown, 10/25/13) Home Medications ALPRAZolam 0.25 Mg Tablet, 0.25 MG PO Q6H PRN for ANXIETY, (Reported) Acetaminophen/Diphenhydramine 500 Mg-25 Mg Tablet, 2 EACH PO HS, (Reported) Aspirin 81 Mg Tablet.dr, 81 MG PO HS, (Reported) Docusate Sodium 100 Mg Capsule, 100 MG PO BID, (Reported) Furosemide 20 Mg Tablet, 20 MG PO DAILY, (Reported) Guaifenesin/Dextromethorphan 1,200 Mg-60 Mg Tbmp.12hr, 1 EACH PO Q12H, (Reported) Hydralazine HCl 50 Mg Tablet, 50 MG PO 0600,1400,2200, (Reported) Hydralazine HCl 25 Mg Tablet, 25 MG PO Q8H PRN for BLOOD PRESSURE, (Reported) TAKES 50MG EVERY 8 HOURS, IF BP IS HIGH A 25MG DOSE IS GIVEN Hydrocodone/Acetaminophen 5 Mg-325 Mg Tablet, 1 EA PO Q8H PRN for PAIN-MODERATE (5-7), (Reported) Megestrol Acetate 40 Mg Tablet, 40 MG PO QID PRN for APPETITE STIMULATION, (Reported) Metformin HCl 500 Mg Tab.er.24h, 500 MG PO BIDAC, (Reported) Ondansetron 8 Mg Tab.rapdis, 8 MG PO Q6H PRN for NAUSEA/VOMITING-1ST LINE, (Reported) Pantoprazole Sodium 40 Mg Tablet.dr, 40 MG PO BIDAC, (Reported) LAST FILLED 08-02-2021 #60/30 DAY SUPPLY Potassium Chloride 10 Meq Tablet.er, 10 MEQ PO DAILY, (Reported) Propranolol HCl 60 Mg Tablet, 60 MG PO BID, (Reported) Ubidecarenone 100 Mg Capsule, 100 MG PO DAILY, (Reported) Past Medical/Social/Family Hx Patient Social History Tobacco Use?: Yes Smoking Status: Former Smoker Use of E-Cig and/or Vaping dev: No Substance use?: No Alcohol Use?: No Pt stated abuse/neglect: No Immunizations Up To Date Influenza Vaccine Up-to-Date: No; Not Current First/Initial COVID19 Vaccinat: FEB 2020 Second COVID19 Vaccination Jose: APRIL 2020 Tetanus Booster (TDap): Unknown Hepatitis A: No Hepatitis B: No TB Skin Test: None Date of Pneumonia Vaccine: July 02, 2009 Current Status Advance Directives: Yes Advance Directive Location: Unable to obtain copy Communicates: Gestures, Verbally Primary Language: Gabonese Preferred Spoken Language: Gabonese Is interpretation needed?: No Implanted or Applied Medical D: None Family Medical History Family Hx: SOCIAL HISTORY: -NO SMOKING -RARE ALCOHOL USE -NO DRUG USE PAST SURGICAL HISTORY: -HERNIA REPAIR X 3 -TURP -KNEE SURGERY FOR TORN MENISCUS -BILATERAL CAROTID ENDARTERECTOMY 2005 -3-VESSEL CABG -REMOVAL OF MELANOMA OF BACK WITH LYMPH NODE BIOPSY RIGHT AXILLA 04/2021 -PORT RIGHT CHEST 04/2021 ADDITONAL PMH: -MULTIPLE EPISODES OF 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 0.0oz. 104.160113vc; 28.51 BMI Method: Exam Exam Patient acknowledged, consented, and participated in this virtual visit which was conducted using real time audio/video Vital Signs Date Time Temp Pulse Resp B/P (MAP) Pulse Ox O2 Delivery O2 Flow Rate FiO2 12/03/21 07:00 97 12/03/21 07:00 99 20 91/59 (70) 94 Room Air 12/03/21 06:00 105 17 97/71 (80) 96 Room Air 12/03/21 05:33 112 12/03/21 05:30 113 15 96/61 (73) 96 Room Air 12/03/21 05:25 96 Room Air 12/03/21 04:49 36.8 101 19 99/67 96 Room Air 12/03/21 02:31 Room Air 12/03/21 02:31 36.8 88 20 111/77 (88) 96 Room Air I & O 12/03/21 07:00 Intake Total 1000 ml Output Total 300 ml Balance 700 ml Height & Weight Height: 6'0.00" Weight: 230lbs. 0.0oz. 104.576064mt; 28.51 BMI Method: General Appearance: No Apparent Distress, WD/WN, Other (SOMEWHAT LETHARGIC, CONSTANTLY TRYING TO SPIT, BUT IS NOT ACTUALLY SPITTING ANYTHING UP. NO COUGH OR DYSPNEA) Neck: Normal Inspection Respiratory: Normal Breath Sounds, No Accessory Muscle Use, No Respiratory Distress Cardiovascular: Regular Rate, Rhythm, No Murmur, JVD Capillary Refill: Less Than 3 Seconds Extremity: Pedal Edema (4++ BILATERAL PEDAL EDEMA) Neurologic/Psychiatric: Alert, No Motor/Sensory Deficits, facility engineer II-XII Norm as Tested, Other (PT WITH POOR MEMORY, BUT IS ORIENTED TO PERSON, PLACE AND GROSSLY ORIENTED TO SITUATION. SOMEWHAT CONFUSED TO TIME. ) Skin: Normal Color, Warm/Dry Results Lab Laboratory Tests 12/03/21 02:38 Assessment/Plan Assessment/Plan low Na, being slowly corrected, low Magnesium, being replaced Hx of melanoma, has been on Kaytruda , follow up by oncologist Critical Care: Critically Ill Patient Time spent with patient (mins): 30 LACI WADE MD Dec 03, 2021 08:06
--- NOTE | 2021-12-03 08:49 | History & Physical ---
History of Present Illness History of Present Illness Reason for visit/HPI Pt is an 86 y/o male who is known to me from clinic. He presented to the hospital after having weakness, fatigue, difficulty swallowing due to mucous in his throat, and weight loss due to decreased appetite. He reports that he has been progressing in his weakness, has failed home health physical therapy due to his weakness. He reports that because he has been sitting on his bottom so much in his lazy boy. He reports that he has been sleeping in his recliner for the past 3 weeks. His reports that he had an episode of weakness which prompted her bringing him to the hospital last night. Date of Admission Dec 03, 2021 at 03:35 Date Seen by a Provider: Dec 03, 2021 Time Seen by a Provider: 08:20 I consulted on this patient on 12/03/21 08:49 Attending Physician Josh Roberson MD Admitting Physician Admitting Physician: Lucille Melendez DO Attending Physician: Lucille Melendez DO Consult critical care accounts officer Allergies and Home Medications Allergies Coded Allergies: hydrocodone (Unverified Allergy, Mild, 03/22/07) amlodipine (Unverified Allergy, Unknown, 10/25/13) benazepril (Unverified Allergy, Unknown, 10/25/13) carbidopa (Unverified Allergy, Unknown, 05/18/21) codeine (Verified Allergy, Unknown, 09/02/05) levodopa (Unverified Allergy, Unknown, 05/18/21) telmisartan (Unverified Allergy, Unknown, 10/25/13) Patient Home Medication List Home Medication List Reviewed: Yes ALPRAZolam (ALPRAZolam) 0.25 Mg Tablet, 0.25 MG PO Q6H PRN for ANXIETY, (Reported) Entered as Reported by: FRANSISCA CAMEJO on 12/03/211035 Last Action: Continued Acetaminophen/Diphenhydramine (Tylenol Pm Ex-Strength Caplet) 500 Mg-25 Mg Tablet, 2 EACH PO HS, (Reported) Entered as Reported by: FRANSISCA CAMEJO on 12/03/211035 Last Action: Held Aspirin (Aspirin EC) 81 Mg Tablet.dr, 81 MG PO HS, (Reported) Entered as Reported by: FRANSISCA CAMEJO on 12/03/211035 Last Action: Held Docusate Sodium (Docusate Sodium) 100 Mg Capsule, 100 MG PO BID, (Reported) Entered as Reported by: FRANSISCA CAMEJO on 12/03/211035 Last Action: Held Furosemide (Furosemide) 20 Mg Tablet, 20 MG PO DAILY, (Reported) Entered as Reported by: FRANSISCA CAMEJO on 12/03/211035 Last Action: Held Guaifenesin/Dextromethorphan (Mucinex Dm ER 1,200-60 mg Tab) 1,200 Mg-60 Mg Tbmp.12hr, 1 EACH PO Q12H, (Reported) Entered as Reported by: FRANSISCA CAMEJO on 12/03/211035 Last Action: Converted Hydralazine HCl (Hydralazine HCl) 50 Mg Tablet, 50 MG PO 0600,1400,2200, (Reported) Entered as Reported by: FRANSISCA CAMEJO on 12/03/211035 Last Action: Held Hydralazine HCl (Hydralazine HCl) 25 Mg Tablet, 25 MG PO Q8H PRN for BLOOD PRESSURE, (Reported) Entered as Reported by: FRANSISCA CAMEJO on 12/03/211035 Last Action: Held Hydrocodone/Acetaminophen (Hydrocodone-Acetamin 5-325 mg) 5 Mg-325 Mg Tablet, 1 EA PO Q8H PRN for PAIN-MODERATE (5-7), (Reported) Entered as Reported by: FRANSISCA CAMEJO on 12/03/211035 Last Action: Held Megestrol Acetate (Megestrol Acetate) 40 Mg Tablet, 40 MG PO QID PRN for APPETITE STIMULATION, (Reported) Entered as Reported by: FRANSISCA CAMEJO on 12/03/211035 Last Action: Held Metformin HCl (Metformin HCl ER) 500 Mg Tab.er.24h, 500 MG PO BIDAC, (Reported) Entered as Reported by: FRANSISCA CAMEJO on 12/03/211035 Last Action: Held Ondansetron (Ondansetron Odt) 8 Mg Tab.rapdis, 8 MG PO Q6H PRN for NAUSEA/VOMITING-1ST LINE, (Reported) Entered as Reported by: FRANSISCA CAMEJO on 12/03/211035 Last Action: Held Pantoprazole Sodium (Pantoprazole Sodium) 40 Mg Tablet.dr, 40 MG PO BIDAC, (Reported) Entered as Reported by: FRANSISCA CAMEJO on 12/03/21 103 Last Action: Continued Potassium Chloride (K-Tab ER) 10 Meq Tablet.er, 10 MEQ PO DAILY, (Reported) Entered as Reported by: FRANSISCA CAMEJO on 12/03/21 103 Last Action: Held Propranolol HCl (Propranolol HCl) 60 Mg Tablet, 60 MG PO BID, (Reported) Entered as Reported by: FRANSISCA CAMEJO on 12/03/21 103 Last Action: Held Ubidecarenone (Coq-10) 100 Mg Capsule, 100 MG PO DAILY, (Reported) Entered as Reported by: FRANSISCA CAMEJO on 12/03/21 1038 Last Action: Held Discontinued Medications Aspirin (Aspirin EC) 81 Mg Tablet.dr, 81 MG PO HS Discontinued Reason: Duplicate Order Prescribed by: JOSH ROBERSON on 03/31/21 0929 Last Action: Discontinued Bisacodyl (Bisacodyl) 10 Mg Supp.rect, 10 MG WA DAILY PRN Discontinued Reason: Duplicate Order Prescribed by: JOSH ROBERSON on 10/29/211227 Last Action: Discontinued Docusate Sodium (Dulcolax Stool Softener) 100 Mg Capsule, 100 MG PO BID Discontinued Reason: Duplicate Order Prescribed by: JOSH ROBERSON on 10/29/211227 Last Action: Discontinued Hydralazine HCl (Hydralazine HCl) 50 Mg Tablet, 25 MG PO TID PRN for BLOOD PRESSURE Discontinued Reason: Duplicate Order Prescribed by: LUCILLE MELENDEZ on 06/20/21 1103 Last Action: Discontinued Hydralazine HCl (Hydralazine HCl) 50 Mg Tablet, 50 MG PO QID Discontinued Reason: Duplicate Order Prescribed by: JOSH ROBERSON on 10/29/211227 Last Action: Discontinued Lactulose (Lactulose) 10 Gram/15 Ml (15 Ml) Solution, 10 GM PO DAILY Discontinued Reason: Duplicate Order Prescribed by: JOSH ROBERSON on 10/29/211227 Last Action: Discontinued Metformin HCl (Metformin HCl) 500 Mg Tablet, 500 MG PO BIDAC, (Reported) Discontinued Reason: Duplicate Order Entered as Reported by: PASCUAL PEREZ on 05/19/21 0900 Last Action: Discontinued Ondansetron (Ondansetron Odt) 4 Mg Tab.rapdis, 4 MG PO Q6H PRN for NAUSEA-1ST LINE Discontinued Reason: Duplicate Order Prescribed by: ABHILASH ARROYO on 11/02/211920 Last Action: Discontinued Pantoprazole Sodium (Pantoprazole Sodium) 40 Mg Tablet.dr, 40 MG PO BIDAC Discontinued Reason: Duplicate Order Prescribed by: JOSH ROBERSON on 03/31/21928 Last Action: Discontinued Propranolol HCl (Propranolol HCl ER) 60 Mg Cap.sa.24h, 60 MG PO BID Discontinued Reason: Duplicate Order Prescribed by: ANA VENTURA on 05/18/21956 Last Action: Discontinued Ubidecarenone (Co Q-10) 100 Mg Capsule, 100 MG PO DAILY Discontinued Reason: Duplicate Order Prescribed by: JOSH ROBERSON on 03/31/21928 Last Action: Discontinued Past Bzjkiho-Vkhoaa-Rwkrut Hx Patient Social History Marrital Status: Living Status: lives at home with alpha - his Employed/Student: retired Tobacco Use?: Yes Smoking Status: Former Smoker Use of E-Cig and/or Vaping dev: No Substance use?: No Alcohol Use?: No Pt feels they are or have been: No Immunizations Up To Date Date of Influenza Vaccine: Nov 27, 2020 First/Initial COVID19 Vaccinat: FEB 2020 Second COVID19 Vaccination Jose: APRIL 2020 Tetanus Booster (TDap): Unknown Hepatitis A: No Hepatitis B: No Date of Pneumonia Vaccine: July 02, 2009 Seasonal Allergies Seasonal Allergies: No Current Status Advance Directives: Yes Advance Directive Location: Unable to obtain copy Communicates: Gestures, Verbally Primary Language: Bengali Preferred Spoken Language: Bengali Is interpretation needed?: No Implanted or Applied Medical D: None Past Medical History Surgeries: Abdominal, Cardiac, CABG, Orthopedic, Transurethral Resection, Vascular Surgery Currently Using CPAP: No Currently Using BIPAP: No Chronic Edema/Swelling, Coronary Artery Disease, High Cholesterol, Hypertension, Peripheral Vascular Dementia, TIA Sexually Transmitted Disease: No Benign Prostatic Hyperpl, Prostate Problems Abdominal Hernia, Gastroesophageal Reflux, Chronic Constipation Arthritis Diabetes, Non-Insulin dep Hearing Impairment: Hard of Hearing, Hearing Aide Right Skin, Melanoma Did You Recieve Any Treatments: Yes What Type of Treatment Did You: Chemotherapy, Surgical Intervention Sleep Difficulties, Anxiety Blood Disorders: No Family Medical History Reviewed and Corrections made Heart Disease, Hypertension SOCIAL HISTORY: -NO SMOKING -RARE ALCOHOL USE -NO DRUG USE PAST SURGICAL HISTORY: -HERNIA REPAIR X 3 -TURP -KNEE SURGERY FOR TORN MENISCUS -BILATERAL CAROTID ENDARTERECTOMY 2006 -3-VESSEL CABG -REMOVAL OF MELANOMA OF BACK WITH LYMPH NODE BIOPSY RIGHT AXILLA 04/2021 -PORT RIGHT CHEST 04/2021 ADDITONAL PMH: -MULTIPLE EPISODES OF 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 -FREQUENT EPISODES OF DELIRIUM/INCREASED CONFUSION, HALLUCINATIONS, SPEECH ABNORMALITIES -MULTIFACTORIAL DUE TO DEMENTIA AND "SUNDOWNER'S", PARKINSON'S, HYPERTENSIVE ENCEPHALOPATHY -HAS HAD PROGRESSIVE GENERALIZED WEAKNESS AND INABILTIY TO DO ADL'S INCLUDING BEING UNABLE TO FEED HIMSELF Review of Systems Constitutional: No chills, No diaphoresis; dizziness; No fever; malaise, weakness, weight loss EENTM: hearing loss, other (dry mouth, dry throat); No mouth swelling, No throat pain, No throat swelling Cardiovascular: No chest pain; edema; No palpitations, No syncope Gastrointestinal: No RUQ, No LUQ, No RLQ, No LLQ, No abdominal pain, No constipation, No diarrhea; loss of appetite, nausea, vomiting Genitourinary: incontinence Musculoskeletal: back pain, joint pain; No joint swelling, No muscle pain, No muscle stiffness, No muscle cramps, No muscle twitching; muscle weakness; No neck pain Skin: other (wounds on buttock) Psychiatric/Neurological: Weakness All Other Systems Reviewed Negative Unless Noted: Yes Physical Exam Vital Signs Vital Signs - First Documented Capillary Refill : Less Than 3 Seconds Height, Weight, BMI Height: 6'0.00" Weight: 230lbs. 0.0oz. 104.885168nn; 28.51 BMI Method: General Appearance: Mild Distress, Thin HEENT: PERRL/EOMI, Pharynx Normal Neck: Full Range of Motion, Non Tender, Supple Respiratory: Chest Non Tender, No Accessory Muscle Use, Decreased Breath Sounds Cardiovascular: Regular Rate, Rhythm, Systolic Murmur Gastrointestinal: Normal Bowel Sounds, No Pulsatile Mass, Non Tender, Soft Rectal: Deferred Extremity: Pedal Edema (3+ pitting edema to knees) Neurologic/Psychiatric: Alert, Oriented x3, Normal Mood/Affect Skin: Other (skin tear on coccyx) Assessment/Plan Assessment and Plan Hyponatremia Malaise Weakness Gait instability Edema of lower extremities Chronic Hypertension Current Hypotension Melanoma in remission Advanced age Hypomagnesemia Dysphagia Cough with mucous production Hyponatremia - should improve with proper nutrition, monitor repeat labs. Malaise, Weakness and Gait instability - discussed with pt and his separately - he failed outpatient physical therapy due to his weakness, I believe that he needs to have physical therapy at a custodial. I advised the pt and he was adamant he did not want to go to a custodial, but his reports that she cannot care for him in their home any longer due to his weakness and her inability to care for him due to her health and her back pain. - Alpha would like to see Rvainder be evaluated [facility]. Edema of lower extremities - compression of lower legs with fluid restriction as able. Chronic Hypertension with Current Hypotension - hold home medications at this time due to his low blood pressures - have to be careful however due to his hx of Hypertensive encephalopathy. Melanoma in remission -discussed with his cancer doctor - Dr. Gomez - the Keytruda has risk of MULTIPLE side effects - cough, arthralgia, Hyponatremia, decreased appetite, vomiting, hypoalbuminemia, liver enzyme abnormalities, peripheral edema, dysphagia, back pain, UTI, hemorrhage, adrenal insufficiency, immune-mediated adverse reactions including: - uveitis, arthritis, myositis, pancreatitis, hemolytic anemia, myasthenic syndrome, rhabdomyolysis, endocrinopathies, etc) - at this time, Ravinder is not demonstrating autoimmune mediated reactions, but we will monitor labs, and symptoms closely, and if needed we will consider initiation of steroids IV. Advanced age - advising pt's that we should consider custodial, she is in agreement. Hypomagnesemia - replace per protocol. - check labs in morning. Cough with mucous production - dysphagia eval - pureed foods since pt refuses to try solid foods at this time, glucerna to help improve protein intake. - advance diet if tolerated later. - mucinex to be started. dvt prophylaxis with scd's and lovenox. gi prophylaxis with ppi bid Admission Diagnosis Hyponatremia Malaise Weakness Gait instability Edema of lower extremities Chronic Hypertension Current Hypotension Melanoma in remission Advanced age Hypomagnesemia Dysphagia Cough with mucous production Admission Status: Inpatient Order (span 2 midnights) Reason for Inpatient Admission: inpatient admission for hyponatremia, hypotension, weakness, edema, will require at least 3-4 days in the hospital for stabilization JOSH ROBERSON MD Dec 03, 2021 08:49
[2021-12-03] MEDS: POTASSIUM CHLORIDE INJ 10 MEQ in NS IV 1000 ML 1,000 ML IV SCH ×3 (08:55→20:02)
[2021-12-03] MEDS ORDERED: PANTOPRAZOLE 40 MG (PROTONIX) VIAL IV SCH (09:00)
[2021-12-03] MEDS ORDERED: POTA10TA PO (10:36)
[2021-12-03] MEDS ORDERED: FURO20TA4 PO (10:36)
[2021-12-03] MEDS ORDERED: METF-865 PO (10:36)
[2021-12-03] MEDS ORDERED: ACET-3075 PO (10:36)
[2021-12-03] MEDS ORDERED: DOCU100C37 PO (10:36)
[2021-12-03] MEDS ORDERED: ALPR0.254 PO (10:36)
[2021-12-03] MEDS ORDERED: ACHD5005 PO (10:36)
[2021-12-03] MEDS ORDERED: PROP60TA17 PO (10:36)
[2021-12-03] MEDS ORDERED: PANT40TA52 PO (10:36)
[2021-12-03] MEDS ORDERED: GUAI1TBM19 PO (10:36)
[2021-12-03] MEDS ORDERED: ASPI-1238 PO (10:36)
[2021-12-03] MEDS ORDERED: HYDR-3924 PO (10:36)
[2021-12-03] MEDS ORDERED: ONDA8TAB13 PO (10:36)
[2021-12-03] MEDS ORDERED: MEGE40TA5 PO (10:36)
[2021-12-03] MEDS ORDERED: HYDR-3923 PO (10:36)
[2021-12-03] MEDS ORDERED: UBID100C17 PO (10:38)
--- NOTE | 2021-12-03 12:48 | ST Dysphagia Evaluation ---
Speech Evaluation-General Medical Diagnosis Hyponatremia Onset Date: Dec 02, 2021 Therapy Diagnosis Therapy Diagnosis: Intact Oropharyngeal Swallow (Thin Liquids and Puree) Precautions Precautions: Fall, Pressure Ulcer, Aspiration Precautions/Isolations: Fall Prevention, Standard Precautions, Pressure Ulcer Referral Referring Physician: Dr. Roberson Reason for Referral: Evaluation/Treatment Medical History Current History The patient is an 86 year-old male with a past medical history significant for , who arrived to [facility] with nausea, vomiting, and reduced appetite. The patient was admitted with hyponatremia. To note, an accurate description of the patient's possible swallowing difficulty is hard to obtain, as the patient's continues to report symptoms ("Yes, he coughs and chokes.") but denied swallowing issues ("No, he doesn't have any difficulty swallowing. This is not swallowing."). The patient stated he coughs up "phlegm" frequently, however, two days ago solids began to "get stuck" in his throat. The patient reported he is able to clear the material with a subsequent drink of water. Initially, the patient refused the evaluation, stating, "I just want water and they won't give it to me." The clinician explained the patient is N.P.O. for the swallowing evaluation and if water appears safe throughout the evaluation, the clinician would make the recommendation. The clinician agreed to water but refused anything solid. CXR: 12/02/21: 1. Stable chest demonstrating no acute cardiopulmonary abnormality. Speech PLF/Current-Dysphagia Prior Level of Function Per patient's , the patient is currently tolerating a soft consistency diet with thin liquids. Subjective The patient was lying in bed, awake and alert upon entrance to his room by the clinician. The patient has his present at bedside. The patient was positio yara upright in bed for safe swallowing. Cognitive Status Patient Orientation: Person, Place, Time, Situation Oral Motor Skills Dentition: Natural Ability to Follow Directions: Good Oral Expression Ability: No Impairment Voice Voice Phonatory-Based Quality: Normal Voice Pitch: Normal Voice Loudness: Normal Face Facial Symmetry: Symmetrical Oral-Facial Assessment Oral-Facial Dentition: Normal Labial Seal Description: Normal Smile: Normal Puff Cheeks: Normal Lingual Protrusion: Normal Lingual ROM: Normal Lingual Strength: Normal Volitional Dry Swallow: Yes Voluntary Cough: Yes Can Clear Throat Volitionally: Yes Productive Cough: Yes Productive Throat Clear: Yes Dysphagia Evaluation Consistencies Presented: Thin Liquid, Pureed The patient refused solid consistencies on this date. The patient does not display oral deficits to the swallowing function. The patient does not display pharyngeal deficits to the swallowing function. The patient consumed multiple small and large straw drinks of thin liquid (water and grape juice), multiple teaspoons of applesauce, and multiple teaspoons of Jell-O. The patient was offered multiple solid consistencies and continued to refuse. The patient does not display s/s of suspected aspiration with any consistency presented. The patient was made aware that without completing trials of solid consistencies, the clinician would be unable to provide a recommendation of solid consistencies following the evaluation. The patient and the patient's verbalized comprehension of this material. Dietary Recommendations: Pureed Liquid Recommendations: Thin Recommendations: - Dysphagia one (pureed) consistency with thin liquids, as tolerated. - Fully upright and alert for P.O. intake. - Small, single bites and sips. - Alternate puree and thin liquids on a 1:1 ratio. - Crush medication and place in puree for administration. - Monitor for s/s of suspected aspiration with P.O. intake. If demonstrated, contact speech pathology. The clinician provided the recommendations to the patient, the patient's , and the patient's RN. The clinician stated a modified barium swallow could be completed if the patient remains hesitant towards solid consistencies. The patient's deferred the recommendation stating, "It's not swallowing, it's why the food won't digest." The clinician attempted redirection and additional e ducation regarding the oropharyngeal-esophageal swallowing function, however, the patient's politely refused the material. At this time, the patient and the patient's denied additional questions or concerns for the clinician. Dysphagia Evaluation Summary At this time, the patient does not display s/s of suspected aspiration or a concern for oropharyngeal dysphagia with puree or thin liquid consistencies. The patient deferred trials of solid consistencies on this date. Speech Short Term Goals Short Term Goals Short Term Goals 1. The patient will tolerate trials of the least restrictive consistency without s/s of suspected aspiration. Speech Correction Goals Correction Goals 1. The patient will tolerate the least restrictive diet without s/s of suspected aspiration. Time Frame: One Week. Speech-Plan Treatment Plan Speech Therapy Treatment Plan: Continue Plan of Care Treatment Duration: Dec 10, 2021 Frequency: 1 time per week Estimated Hrs Per Day: .25 hour per day Rehab Potential: Fair Safety Risks/Education Teaching Recipient: Patient, Significant Other Teaching Methods: Discussion Response to Teaching: Reinforcement Needed Education Topics Provided: Results, Recommendations, Plan of Care Time Speech Therapy Time In: 11:55 Speech Therapy Time Out: 12:15 Total Billed Time: 20 Billed Treatment Time 1, ANAND, STEPHANE Sanders Dec 03, 2021 12:48
[2021-12-03] MEDS ORDERED: ALBUMIN 25% 25 GM/100 ML 50 ML IV NR (13:30)
[2021-12-03] MEDS ORDERED: ONDANSETRON 4 MG/2 ML (SDV) Z0FRAN IVP PRN (13:30)
--- NOTE | 2021-12-03 18:19 | Progress Note ---
Standard Progress Note Progress Notes/Assess & Plan Date Seen by a Provider: Dec 03, 2021 Time Seen by a Provider: 18:18 Progress/Assessment & Plan will order BPM for follow up on sodium LACI WADE MD Dec 03, 2021 18:19
[2021-12-03 19:31] LABS: CALCIUM 8.2 MG/DL (8.5-10.1); CREATININE SERUM 0.72 MG/DL (0.60-1.30); POTASSIUM 4.3 MMOL/L (3.6-5.0)
[2021-12-03] MEDS ORDERED: SALIVA STIMULANT MOUTH SPRAY (BIOTENE) 1.5 OZ MM PRN (19:45)
[2021-12-03] MEDS ORDERED: NS IV 500 ML 500 ML IV PRN (20:15)
[2021-12-03] MEDS: ACETAMINOPHEN 325 MG TABLET PO PRN (21:50)
[2021-12-03] MEDS: ALPRAZolam 0.25 MG (XANAX) TAB PO PRN (21:50)
[2021-12-03] MEDS: ENOXAPARIN 40 MG/0.4 ML (LOVENOX) SYR SC SCH (21:50)
[2021-12-04] VITALS: BP 100/53
[2021-12-04 01:22] LABS: POTASSIUM 4.3 MMOL/L (3.6-5.0)
[2021-12-04 01:23] LABS: CALCIUM 7.6 MG/DL (8.5-10.1)
[2021-12-04 01:28] LABS: CREATININE SERUM 0.7 MG/DL (0.60-1.30)
[2021-12-04 04:00] VITALS: BP 120/73
[2021-12-04] MEDS: POTASSIUM CHLORIDE INJ 10 MEQ in NS IV 1000 ML 1,000 ML IV SCH ×2 (05:24→16:33)
[2021-12-04 05:42] LABS: BASOPHILS % (AUTO) 1 % (0-10); EOSINOPHILS % (AUTO) 1 % (0-10); HEMATOCRIT 32 % (40-54); HEMOGLOBIN 11.3 g/dL (13.3-17.7); LYMPHOCYTES # (AUTO) 1.1 10^3/uL (1.0-4.0); LYMPHOCYTES % (AUTO) 17 % (12-44); MEAN CORPUSCULAR HGB CONC 35 g/dL (32-36); MEAN CORPUSCULAR VOLUME 89 fL (80-99); MEAN PLATELET VOLUME 9.1 fL (9.0-12.2); MONOCYTES # (AUTO) 1.1 10^3/uL (0.0-1.0); MONOCYTES % (AUTO) 17 % (0-12); NEUTROPHILS # (AUTO) 4.1 10^3/uL (1.8-7.8); NEUTROPHILS % (AUTO) 64 % (42-75); PLATELET COUNT 193 10^3/uL (130-400); WHITE BLOOD COUNT 6.4 10^3/uL (4.3-11.0)
[2021-12-04 05:47] LABS: MEAN CORPUSCULAR HEMOGLOBIN 31 pg (25-34)
[2021-12-04 05:52] LABS: POTASSIUM 4.5 MMOL/L (3.6-5.0)
[2021-12-04 05:53] LABS: CALCIUM 7.7 MG/DL (8.5-10.1)
[2021-12-04 05:57] LABS: CREATININE SERUM 0.67 MG/DL (0.60-1.30); PHOSPHORUS 3.1 MG/DL (2.3-4.7)
[2021-12-04 06:00] LABS: MAGNESIUM 1.6 MG/DL (1.6-2.4)
[2021-12-04] MEDS: KCL 20 MEQ TAB (K-DUR) PO SCH (06:02)
[2021-12-04] MEDS: POTASSIUM CL 10MEQ/50ML IVPB 50 ML IV SCH (06:02)
[2021-12-04] MEDS: MAGNESIUM 1 GM/100 ML IVPB 100 ML IV SCH ×3 (06:03→08:41)
[2021-12-04 06:21] LABS: FREE T4 (FREE THYROXINE) 0.93 NG/DL (0.70-1.48)
[2021-12-04] MEDS: ACETAMINOPHEN 325 MG TABLET PO PRN ×2 (06:22→20:22)
[2021-12-04] MEDS: PANTOPRAZOLE 40 MG (PROTONIX) TAB PO SCH ×2 (06:22→15:23)
--- NOTE | 2021-12-04 06:49 | Diagnostic Imaging Report ---
INDICATION: Dyspnea and edema. FINDINGS: Right IJ catheter at the SVC. Sternal wires unremarkable. The lungs clear. No failure, effusion or pneumothorax. IMPRESSION: No acute appearing abnormality. Dictated by: Dictated on workstation # [id number]
--- NOTE | 2021-12-04 07:28 | Tele-ICU Progress Note ---
Subjective Date Seen by a Provider: Dec 04, 2021 Time Seen by a Provider: 07:24 Subjective/Events-last exam Na remains low, 125 this am, potassium and magnesium ok, now getting normal saline @ Sepsis Event Evaluation Height, Weight, BMI Height: 6'0.00" Weight: 230lbs. 0.0oz. 104.101413do; 28.39 BMI Method: Exam Exam Patient acknowledged, consented, and participated in this virtual visit which was conducted using real time audio/video Vital Signs Date Time Temp Pulse Resp B/P (MAP) Pulse Ox O2 Delivery O2 Flow Rate FiO2 12/04/21 04:00 70 19 120/73 (89) 96 Room Air 12/04/21 04:00 97 Room Air 12/04/21 03:58 36.4 Room Air 12/04/21 01:00 72 12/04/21 00:05 36.5 Room Air 12/04/21 00:00 73 17 100/53 (69) 95 Room Air 12/04/21 00:00 96 Room Air 12/03/21 20:02 36.4 78 25 107/63 (78) 95 Room Air 12/03/21 20:00 97 Room Air 12/03/21 19:00 76 12/03/21 16:00 75 23 91/54 (66) 95 Room Air 12/03/21 15:49 Room Air 12/03/21 13:00 91 18 104/63 (77) 94 Room Air 12/03/21 12:42 94 12/03/21 12:00 94 14 91/54 (66) 94 Room Air 12/03/21 12:00 Room Air 12/03/21 08:30 Room Air 12/03/21 08:00 36.4 I & O 12/04/21 07:00 Intake Total 2970 ml Output Total 1975 ml Balance 995 ml Height & Weight Height: 6'0.00" Weight: 230lbs. 0.0oz. 104.425066st; 28.39 BMI Method: General Appearance: Mild Distress, Thin HEENT: PERRL/EOMI, Pharynx Normal Neck: Full Range of Motion, Non Tender, Supple, Carotid Bruit Respiratory: Chest Non Tender, No Accessory Muscle Use, Decreased Breath Sounds Cardiovascular: Regular Rate, Rhythm, Systolic Murmur Capillary Refill: Less Than 3 Seconds Gastrointestinal: normal bowel sounds, non tender Extremity: Pedal Edema (3+ pitting edema to knees) Neurologic/Psychiatric: Alert, Oriented x3, Normal Mood/Affect Skin: Other (skin tear on coccyx) Results Lab Laboratory Tests 12/03/21 02:38 12/03/21 19:00 12/04/21 01:00 12/04/21 05:20 Assessment/Plan Assessment/Plan hyponatremia, will check urine lytes, serum cortisol melenoma, follow up by oncologist Critical Care: Critically Ill Patient Time spent with patient (mins): 25 LACI WADE MD Dec 04, 2021 07:28
[2021-12-04 08:00] VITALS: BP 134/67
[2021-12-04 09:02] LABS: POTASSIUM 4.3 MMOL/L (3.6-5.0)
[2021-12-04 09:03] LABS: CALCIUM 7.7 MG/DL (8.5-10.1)
[2021-12-04 09:08] LABS: CREATININE SERUM 0.65 MG/DL (0.60-1.30)
[2021-12-04 12:00] VITALS: BP 149/74
[2021-12-04 14:09] LABS: POTASSIUM 4.2 MMOL/L (3.6-5.0)
[2021-12-04 14:10] LABS: CALCIUM 7.7 MG/DL (8.5-10.1)
[2021-12-04 14:14] LABS: CREATININE SERUM 0.66 MG/DL (0.60-1.30)
--- NOTE | 2021-12-04 14:44 | Progress Note ---
Subjective Date Seen by a Provider: Dec 04, 2021 Time Seen by a Provider: 14:36 Subjective/Events-last exam Fwup hyponatramia, hypotension, history of labile hypertension, fatigue and worsening debility, dyspepsia, melanoma. Na up to 125. Patient unable to get up to commode without assistance and was minimum 2 person assist. No further nausea. Objective Exam Vital Signs Date Time Temp Pulse Resp B/P (MAP) Pulse Ox O2 Delivery O2 Flow Rate FiO2 12/04/21 13:15 84 12/04/21 08:00 61 11 134/67 (89) 94 Room Air 12/04/21 07:11 63 12/04/21 04:00 70 19 120/73 (89) 96 Room Air 12/04/21 04:00 97 Room Air 12/04/21 03:58 36.4 Room Air 12/04/21 01:00 72 12/04/21 00:05 36.5 Room Air 12/04/21 00:00 73 17 100/53 (69) 95 Room Air 12/04/21 00:00 96 Room Air 12/03/21 20:02 36.4 78 25 107/63 (78) 95 Room Air 12/03/21 20:00 97 Room Air 12/03/21 19:00 76 12/03/21 16:00 75 23 91/54 (66) 95 Room Air 12/03/21 15:49 Room Air I & O 12/04/21 07:00 Intake Total 2970 ml Output Total 1975 ml Balance 995 ml Capillary Refill : Less Than 3 Seconds General Appearance: No Apparent Distress Neck: Supple Respiratory: Decreased Breath Sounds Cardiovascular: Regular Rate, Rhythm, Systolic Murmur Gastrointestinal: normal bowel sounds, non tender, soft Extremity: Pedal Edema (3rd spacing) Neurologic/Psychiatric: Alert, Oriented x3 Results Lab Laboratory Tests 12/03/21 19:00: Sodium Level 125*L, Potassium Level 4.3, Chloride Level 95L, Carbon Dioxide Level 21, Anion Gap 9, Blood Urea Nitrogen 10, Creatinine 0.72, Estimat Glomerular Filtration Rate 88, BUN/Creatinine Ratio 14, Glucose Level 129H, Calcium Level 8.2L 12/04/21 01:00: Sodium Level 123*L, Potassium Level 4.3, Chloride Level 96L, Carbon Dioxide Level 20L, Anion Gap 7, Blood Urea Nitrogen 11, Creatinine 0.70, Estimat Glomerular Filtration Rate 89, BUN/Creatinine Ratio 16, Glucose Level 137H, Calcium Level 7.6L 12/04/21 05:20: Sodium Level 125*L, Potassium Level 4.5, Chloride Level 98, Carbon Dioxide Level 20L, Anion Gap 7, Blood Urea Nitrogen 10, Creatinine 0.67, Estimat Glomerular Filtration Rate 90, BUN/Creatinine Ratio 15, Glucose Level 117H, Calcium Level 7.7L, White Blood Count 6.4, Red Blood Count 3.59L, Hemoglobin 11.3#L, Hematocrit 32L, Mean Corpuscular Volume 89, Mean Corpuscular Hemoglobin 31, Mean Corpuscular Hemoglobin Concent 35, Red Cell Distribution Width 12.5, Platelet Count 193, Mean Platelet Volume 9.1, Immature Granulocyte % (Auto) 1, Neutrophils (%) (Auto) 64, Lymphocytes (%) (Auto) 17, Monocytes (%) (Auto) 17H, Eosinophils (%) (Auto) 1, Basophils (%) (Auto) 1, Neutrophils # (Auto) 4.1, Lymphocytes # (Auto) 1.1, Monocytes # (Auto) 1.1H, Eosinophils # (Auto) 0.0, Basophils # (Auto) 0.0, Immature Granulocyte # (Auto) 0.1, Phosphorus Level 3.1, Magnesium Level 1.6, Thyroid Stimulating Hormone (TSH) 2.36, Free Thyroxine 0.93 12/04/21 08:35: Sodium Level 126L, Potassium Level 4.3, Chloride Level 98, Carbon Dioxide Level 21, Anion Gap 7, Blood Urea Nitrogen 9, Creatinine 0.65, Estimat Glomerular Filtration Rate 91, BUN/Creatinine Ratio 14, Glucose Level 127H, Calcium Level 7.7L 12/04/21 09:40: 12/04/21 13:50: Sodium Level 125*L, Potassium Level 4.2, Chloride Level 98, Carbon Dioxide Level 21, Anion Gap 6, Blood Urea Nitrogen 10, Creatinine 0.66, Estimat Glomerular Filtration Rate 90, BUN/Creatinine Ratio 15, Glucose Level 155H, Calcium Level 7.7L Assessment/Plan Assessment/Plan Assess & Plan/Chief Complaint 1. Hyponatremia--give 1 bag of hypertonic saline and then continue NS IV but decrease dose, CMP in AM 2. Edema of Legs due to dependent edema from immobility and 3rd spacing--give another bag of albumin today 3. Hypotension--improving 4. History of labile hypertension--will resume propranolol at 40mg po BID starting tonight since BP is now in 130s-140s systolic 5. Weakness/Debility--patient is minimum 2 to 3 person assist, Dr. Roberson discussed hospice vs NH vs 24hr care with patient and as in his current condition she is unable to care for him on her own 6. Melanoma--has finished treatment but has not had fwup with oncology 7. Dyspepsia--improved, swallow eval reviewed but limited as patient would not try solids LUCILLE REED DO Dec 04, 2021 14:44
[2021-12-04] MEDS ORDERED: ALBUMIN 25% 25 GM/100 ML 50 ML IV NR (15:00)
[2021-12-04] MEDS ORDERED: SENNA W/DOCUSATE (SENOKOT S) TABLET PO NR (15:00)
[2021-12-04] MEDS ORDERED: SODIUM CHLORIDE 3% 500 ML IV ONE (15:00)
[2021-12-04 16:00] VITALS: BP 147/83
[2021-12-04] MEDS: PATIENT'S OWN MED (RX USE ONLY) PO SCH (16:30)
[2021-12-04 20:00] VITALS: BP 183/93
[2021-12-04] MEDS: ALPRAZolam 0.25 MG (XANAX) TAB PO PRN (20:22)
[2021-12-04] MEDS: ENOXAPARIN 40 MG/0.4 ML (LOVENOX) SYR SC SCH (20:22)
[2021-12-04] MEDS: PROPRANOLOL 20 MG (INDERAL) TABLET PO SCH (20:22)
[2021-12-04] MEDS: SENNA W/DOCUSATE (SENOKOT S) TABLET PO SCH (20:22)
[2021-12-04] MEDS: hydrALAZINE (APRESOLINE) 25 MG TAB PO PRN (22:33)
[2021-12-05] VITALS: BP 121/64
[2021-12-05] MEDS: ALPRAZolam 0.25 MG (XANAX) TAB PO PRN (01:25)
[2021-12-05] MEDS: ACETAMINOPHEN 325 MG TABLET PO PRN (01:26)
[2021-12-05 04:00] VITALS: BP 144/64
[2021-12-05 05:34] LABS: HEMATOCRIT 33 % (40-54); HEMOGLOBIN 11.6 g/dL (13.3-17.7); MEAN CORPUSCULAR HEMOGLOBIN 31 pg (25-34); MEAN CORPUSCULAR HGB CONC 35 g/dL (32-36); MEAN CORPUSCULAR VOLUME 89 fL (80-99); MEAN PLATELET VOLUME 9.2 fL (9.0-12.2); PLATELET COUNT 205 10^3/uL (130-400); WHITE BLOOD COUNT 7.1 10^3/uL (4.3-11.0)
[2021-12-05 06:01] LABS: ALBUMIN 2.5 GM/DL (3.2-4.5); BILIRUBIN,TOTAL 0.5 MG/DL (0.1-1.0); CREATININE SERUM 0.64 MG/DL (0.60-1.30); PHOSPHORUS 2.6 MG/DL (2.3-4.7); POTASSIUM 4.2 MMOL/L (3.6-5.0); TOTAL PROTEIN 4.5 GM/DL (6.4-8.2)
[2021-12-05] MEDS: KCL 20 MEQ TAB (K-DUR) PO SCH (06:08)
[2021-12-05] MEDS: POTASSIUM CL 10MEQ/50ML IVPB 50 ML IV SCH (06:08)
[2021-12-05] MEDS: POTASSIUM CHLORIDE INJ 10 MEQ in NS IV 1000 ML 1,000 ML IV SCH ×2 (06:19→11:59)
[2021-12-05] MEDS: PATIENT MAY USE OWN MEDS, ALL MC SCH ×2 (06:21→15:57)
[2021-12-05] MEDS: PANTOPRAZOLE 40 MG (PROTONIX) TAB PO SCH ×2 (06:21→15:56)
[2021-12-05] MEDS: PATIENT'S OWN MED (RX USE ONLY) PO SCH ×2 (06:21→15:57)
[2021-12-05] MEDS: MAGNESIUM 1 GM/100 ML IVPB 100 ML IV SCH ×3 (06:26→13:20)
[2021-12-05] MEDS: PROPRANOLOL 20 MG (INDERAL) TABLET PO SCH ×2 (08:36→20:43)
[2021-12-05] MEDS: SENNA W/DOCUSATE (SENOKOT S) TABLET PO SCH ×2 (08:36→20:43)
[2021-12-05 08:39] VITALS: BP 142/81
--- NOTE | 2021-12-05 10:05 | Progress Note ---
Subjective Date Seen by a Provider: Dec 05, 2021 Time Seen by a Provider: 10:00 Subjective/Events-last exam Fwup hyponatramia, hypotension, history of labile hypertension, fatigue and worsening debility, dyspepsia, melanoma. Na up to 127. states is looking at [facility] for retirement. Objective Exam Vital Signs Date Time Temp Pulse Resp B/P (MAP) Pulse Ox O2 Delivery O2 Flow Rate FiO2 12/05/21 08:39 36.4 59 24 142/81 (101) 94 Room Air 12/05/21 08:00 95 Room Air 12/05/21 07:00 67 12/05/21 04:00 69 23 144/64 (90) 94 Room Air 12/05/21 04:00 37.0 Room Air 12/05/21 04:00 93 Room Air 12/05/21 00:52 94 12/05/21 00:00 94 Room Air 12/05/21 00:00 85 24 121/64 (83) 93 Room Air 12/04/21 23:23 36.6 Room Air 12/04/21 20:00 77 24 183/93 (123) 95 Room Air 12/04/21 20:00 95 Room Air 12/04/21 19:00 76 12/04/21 19:00 36.5 Room Air 12/04/21 16:34 36.6 12/04/21 16:00 Room Air 12/04/21 16:00 70 23 147/83 (104) 95 Room Air 12/04/21 13:15 84 12/04/21 12:00 Room Air 12/04/21 12:00 36.5 12/04/21 12:00 66 18 149/74 (99) 96 Room Air I & O 12/05/21 07:00 Intake Total 840 ml Output Total 1350 ml Balance -510 ml Capillary Refill : Less Than 3 Seconds General Appearance: No Apparent Distress Respiratory: Lungs Clear, Decreased Breath Sounds Cardiovascular: Regular Rate, Rhythm Gastrointestinal: normal bowel sounds, non tender, soft Extremity: Non Tender, No Calf Tenderness, Pedal Edema (3 plus) Neurologic/Psychiatric: Alert Results Lab Laboratory Tests 12/04/21 13:50: Sodium Level 125*L, Potassium Level 4.2, Chloride Level 98, Carbon Dioxide Level 21, Anion Gap 6, Blood Urea Nitrogen 10, Creatinine 0.66, Estimat Glomerular Filtration Rate 90, BUN/Creatinine Ratio 15, Glucose Level 155H, Calcium Level 7.7L 12/05/21 05:13: Sodium Level 127L, Potassium Level 4.2, Chloride Level 100, Carbon Dioxide Level 20L, Anion Gap 7, Blood Urea Nitrogen 7, Creatinine 0.64, Estimat Glomerular Filtration Rate 91, BUN/Creatinine Ratio 11, Glucose Level 137H, Calcium Level 8.0L, White Blood Count 7.1, Red Blood Count 3.74L, Hemoglobin 11.6L, Hematocrit 33L, Mean Corpuscular Volume 89, Mean Corpuscular Hemoglobin 31, Mean Corpuscular Hemoglobin Concent 35, Red Cell Distribution Width 12.4, Platelet Count 205, Mean Platelet Volume 9.2, Corrected Calcium 9.2, Phosphorus Level 2.6, Magnesium Level 1.6, Total Bilirubin 0.5, Aspartate Amino Transf (AST/SGOT) 22, Alanine Aminotransferase (ALT/SGPT) 20, Alkaline Phosphatase 50, Total Protein 4.5L, Albumin 2.5L Assessment/Plan Assessment/Plan Assess & Plan/Chief Complaint 1. Hyponatremia--Na up to 127 after hypertonic saline yesterday, getting another bag today 2. Edema of Legs due to dependent edema from immobility and 3rd spacing--is minimum 2 person assist 3. Hypotension--resolved 4. History of labile hypertension--restarted propranolol at 40mg po BID last night as well as hydralazine prn--had a dose of that last night and BP has been stable since 5. Weakness/Debility--patient is minimum 2 person assist, Dr. Roberson discussed hospice vs NH vs 24hr care with patient and as in his current condition she is unable to care for him on her own-- wants [facility] as first choice 6. Melanoma--has finished treatment but has not had fwup with oncology 7. Dyspepsia--improved, swallow eval reviewed but limited as patient would not try solids--discussed this with and today--he still complains of cough with phlegm LUCILLE REED DO Dec 05, 2021 10:05
[2021-12-05] MEDS ORDERED: FLU QUAD HIGH DOSE 240 MCG/0.7 ML 2022-23 (FLUZONE) IM ONE (10:15)
[2021-12-05 12:00] VITALS: BP 160/71
[2021-12-05 20:00] VITALS: BP 170/81
[2021-12-05] MEDS: ENOXAPARIN 40 MG/0.4 ML (LOVENOX) SYR SC SCH (20:43)
[2021-12-05] MEDS: ASPIRIN E.C. 81 MG (ECOTRIN) TAB PO SCH (20:43)
[2021-12-06] VITALS (12 sets, daily range): BP systolic 148–186; BP diastolic 70–84
[2021-12-06] MEDS: ACETAMINOPHEN 325 MG TABLET PO PRN ×2 (00:47→17:49)
[2021-12-06] MEDS: POTASSIUM CHLORIDE INJ 10 MEQ in NS IV 1000 ML 1,000 ML IV SCH ×2 (02:34→16:35)
[2021-12-06] MEDS: PATIENT'S OWN MED (RX USE ONLY) PO SCH ×2 (04:28→16:23)
[2021-12-06 05:37] LABS: HEMATOCRIT 35 % (40-54); HEMOGLOBIN 12.2 g/dL (13.3-17.7); MEAN CORPUSCULAR HEMOGLOBIN 32 pg (25-34); MEAN CORPUSCULAR HGB CONC 35 g/dL (32-36); MEAN CORPUSCULAR VOLUME 90 fL (80-99); MEAN PLATELET VOLUME 9.4 fL (9.0-12.2); PLATELET COUNT 215 10^3/uL (130-400); WHITE BLOOD COUNT 5.7 10^3/uL (4.3-11.0)
[2021-12-06 05:51] LABS: ALBUMIN 2.5 GM/DL (3.2-4.5); BILIRUBIN,TOTAL 0.5 MG/DL (0.1-1.0); CALCIUM 8.2 MG/DL (8.5-10.1); CREATININE SERUM 0.6 MG/DL (0.60-1.30); PHOSPHORUS 2.9 MG/DL (2.3-4.7); POTASSIUM 4.3 MMOL/L (3.6-5.0); TOTAL PROTEIN 4.6 GM/DL (6.4-8.2)
[2021-12-06] MEDS: KCL 20 MEQ TAB (K-DUR) PO SCH (06:00)
[2021-12-06] MEDS: PANTOPRAZOLE 40 MG (PROTONIX) TAB PO SCH ×2 (06:03→15:02)
[2021-12-06] MEDS: POTASSIUM CL 10MEQ/50ML IVPB 50 ML IV SCH (06:19)
[2021-12-06] MEDS: MAGNESIUM 1 GM/100 ML IVPB 100 ML IV SCH (06:21)
[2021-12-06] MEDS: PROPRANOLOL 20 MG (INDERAL) TABLET PO SCH ×2 (08:29→19:50)
[2021-12-06] MEDS: SENNA W/DOCUSATE (SENOKOT S) TABLET PO SCH ×2 (08:29→19:50)
[2021-12-06] MEDS ORDERED: ZINC OXIDE 40% (Butt Paste MAX/Desitin) 57 gm TOP PRN (09:15)
[2021-12-06] MEDS ORDERED: guaiFENesin (MUCINEX) 600 MG TAB PO NR (10:00)
[2021-12-06] MEDS ORDERED: SODIUM CHLORIDE 1 GM TABLET PO NR (10:00)
--- NOTE | 2021-12-06 10:08 | Tele-ICU Progress Note ---
Subjective Date Seen by a Provider: Dec 06, 2021 Time Seen by a Provider: 10:08 Subjective/Events-last exam (Tele-ICU Physician , Progress Note ) Available chart/ vitals / labs / Images reviewed Video assessment done using teleICU camera, rest of exam as per RN Discussed with RN Events overnight : Afebrile hemodynamically stable Pressors- no Consultants: Hospital course: (12/03) 86yr M admitted for Hyponatremia and Hypomagnesium. A/P nuponatremia - NA 125 , received hypertonic saline x2 days boluses - started onn Po sodium ( urine lytes are not briseyda ) Hypotension--resolved - HNT meds to resume as per PCP Lines : , (Central Line Necessity Reviewed) Justice: OG: Nutrition: Analgesia: Anxiety/ delirium VTE Prophylaxis: aaron 40 Stress Ulcer Prophylaxis: na Plans in collaboration with bedside consultants and IM MDs. Discussed with RN to reach out if any questions or concerns A total of 10 minutes of critical care time was devoted to this patient today, required to treat and/or prevent further deterioration of critical care condition ( as above ) . I am remotely monitoring this patient from another state. I am unable to do the bedside exam, and history/physical and pertinent information is taken from other notes in the computer and bedside staff. I cannot take responsibility for the accuracy of this information. Sepsis Event Evaluation Height, Weight, BMI Height: 6'0.00" Weight: 230lbs. 0.0oz. [id number]; 28.60 BMI Method: Exam Exam Patient acknowledged, consented, and participated in this virtual visit which was conducted using real time audio/video Vital Signs Date Time Temp Pulse Resp B/P (MAP) Pulse Ox O2 Delivery O2 Flow Rate FiO2 12/06/21 08:15 96 Room Air 12/06/21 08:05 36.5 56 18 172/82 (112) 95 Room Air 12/06/21 08:00 57 21 172/82 (112) 95 Room Air 12/06/21 07:36 53 12/06/21 04:25 56 20 148/72 (113) 94 Room Air 12/06/21 04:00 93 Room Air 12/06/21 01:00 63 12/06/21 00:00 58 23 154/70 (98) 95 Room Air 12/06/21 00:00 93 Room Air 12/05/21 20:01 36.9 12/05/21 20:00 95 Room Air 12/05/21 20:00 55 22 170/81 (110) 95 Room Air 12/05/21 19:00 64 12/05/21 16:23 37.0 12/05/21 16:00 95 Room Air 12/05/21 16:00 37.0 Room Air 12/05/21 12:42 56 12/05/21 12:00 Room Air 12/05/21 12:00 56 16 160/71 (100) 95 Room Air I & O 12/06/21 07:00 Intake Total 900 ml Output Total 2275 ml Balance -1375 ml Height & Weight Height: 6'0.00" Weight: 230lbs. 0.0oz. 104.451286kx; 28.60 BMI Method: General Appearance: No Apparent Distress HEENT: PERRL/EOMI, Pharynx Normal Neck: Supple Respiratory: Lungs Clear, Decreased Breath Sounds Cardiovascular: Regular Rate, Rhythm Capillary Refill: Less Than 3 Seconds Gastrointestinal: normal bowel sounds, non tender, soft Extremity: Non Tender, No Calf Tenderness, Pedal Edema (3 plus) Neurologic/Psychiatric: Alert Skin: Other (skin tear on coccyx) Results Lab Laboratory Tests 12/04/21 13:50 12/05/21 05:13 12/06/21 05:09 Assessment/Plan Assessment/Plan 1 ARIELLA ALBERT MD Dec 06, 2021 10:08
--- NOTE | 2021-12-06 10:18 | Physical Therapy Evaluation ---
PT Evaluation-General Medical Diagnosis Admission Date Dec 03, 2021 at 03:35 Medical Diagnosis: Hyponatremia Onset Date: Dec 02, 2021 Therapy Diagnosis Therapy Diagnosis: generalized weakness/debility Height/Weight Height (Feet): 6 Height (Inches): 0.00 Weight (Pounds): 230 Weight (Ounces): 0.0 Precautions Precautions/Isolations: Fall Prevention, Standard Precautions, Pressure Ulcer Referral Physician: Al Reason for Referral: Evaluation/Treatment Medical History Pertinent Medical History: CABG, CAD, DM, Dementia, Parkinson's, PVD Additional Medical History metastatic melanoma Current History ER secondary to N/V Reviewed History: Yes Social History Home: Single Level Current Living Status: Spouse Entry Into Home: Ramp Prior Prior Level of Function SCALE: Activities may be completed with or without assistive devices. 9-Wpwcyauyrm-pldugiy completes the activity by him/herself with no assistance from a helper. 5-Set-up or Clean-up Assistance-helper sets up or cleans up; patient completes activity. Duke assists only prior to or following the activity. 4-Supervision or Touching Assistance-helper provides verbal cues and/or touching/steadying and/or contact guard assistance as patient completes activity. Assistance may be provided throughout the activity or intermittently. 3-Partial/Moderate Assistance-helper does LESS THAN HALF the effort. Duke lifts, holds or supports trunk or limbs, but provides less than half the effort. 2-Substantial/Maximal Assistance-helper does MORE THAN HALF the effort. Duke lifts or holds trunk or limbs and provides more than half the effort. 8-Xeyinhxwc-oyazbz does ALL the effort. Patient does none of the effort to complete the activity. Or, the assistance of 2 or more helpers is required for the patient to complete the activity. If activity was not attempted, code reason: 7-Patient Refused. 9-Not Applicable-not attempted and the patient did not perform the activity before the current illness, exacerbation or injury. 10-Not Attempted due to Environmental Limitations-(lack of equipment, weather restraints, etc.). 88-Not Attempted due to Medical Conditions or Safety Concerns. Bed Mobility: 3 Transfers (B,C,W/C): 3 Gait: 7 Stairs: 7 Wheelchair Mobility: 2 Indoor Mobility (Ambulation): Not Applicalbe Stairs: Not Applicalbe Prior Devices Use: Manual wheelchair, Walker PT Evaluation-Current Subjective Patient agrees to PT. Spouse present. Objective Patient Orientation: Confused Attachments: Justice Catheter, IV ROM/Strength ROM Lower Extremities bilateral LE WFL Strength Lower Extremities 3/5 grossly bilateral LE all planes Integumentary/Posture Integumentary refer to nursing notes Bowel Incontinence: Yes Bladder Incontinence: Justice Cath Posture slightly kyphtoic Neuromuscular (Tone, Coordination, Reflexes) diminished coordination due to Parkinson's and weakness Sensory Vision: Functional Hearing: Functional Transfers Roll Left to Right (QC): 2 Lying to Sitting/Side of Bed(Q: 2 Sit to Stand (QC): 3 Chair/Sqt-kk-Pnngh Xfer(QC): 3 Gait Does the Patient Walk?: No and Walking Goal NOT indicated Balance Sitting Static: Fair Sitting Dynamic: Fair Standing Static: Fair Standing Dynamic: Fair Assessment/Needs 86 y.o. male, will be seen by skilled PT to address functional strength and mobility to improve current LOF. Patient is non ambulatory PLOF, however, is able to transfer to [facility], w/c, bed with spouse PLOF. Rehab Potential: Guarded PT Preparation Room Worker Goals Retirement Goals PT Preparation Room Worker Goals Time Frame: Dec 18, 2021 Roll Left & Right (QC): 3 Sit to Lying (QC): 3 Lying-Sitting on Side/Bed(QC): 3 Sit to Stand (QC): 3 Chair/Iej-fg-Bypsl Xfer(QC): 3 Toilet Transfer (QC): 3 PT Plan Problem List Problem List: Activity Tolerance, Functional Strength, Safety, Balance, Transfer, Bed Mobility Treatment/Plan Treatment Plan: Continue Plan of Care Treatment Plan: Bed Mobility, Education, Functional Activity Kortney, Functional Strength, Gait, Safety, Therapeutic Exercise, Transfers Treatment Duration: Dec 18, 2021 Frequency: 6 times per week Estimated Hrs Per Day: .25 hour per day Patient and/or Family Agrees t: Yes Time/GCodes Time In: 800 Time Out: 817 Total Billed Treatment Time: 17 Total Billed Treatment 1 visit EVModC 17 min TIARRA ENCARNACION PT Dec 06, 2021 10:18
--- NOTE | 2021-12-06 10:18 | Progress Note ---
PITO BURROWS 12/06/21 1018: Subjective Date Seen by a Provider: Dec 06, 2021 Time Seen by a Provider: 09:45 Subjective/Events-last exam States he isnt feeling too well today. His butt is still sore from prolonged sitting prior to admission. Wanting to eat solid foods, but swallow study only allows for pureed foods Swallow study today Had bowel movement yesterday Still feels weak Review of Systems Pulmonary: Cough (with mucus production) Neurological: Weakness Objective Exam Last Set of Vital Signs Vital Signs Date Time Temp Pulse Resp B/P (MAP) Pulse Ox O2 Delivery O2 Flow Rate FiO2 12/06/21 08:15 96 Room Air 12/06/21 08:05 36.5 56 18 172/82 (112) Capillary Refill : Less Than 3 Seconds I&O Intake and Output 12/06/21 00:00 Intake Total 770 ml Output Total 1850 ml Balance -1080 ml Intake Oral 770 ml Output Urine Total 1850 ml General: Alert, Oriented X3, Cooperative, No Acute Distress HEENT: Atraumatic, EOMI Neck: Supple, No JVD Lungs: Clear to Auscultation, Normal Air Movement Heart: Regular Rate, Normal S1, Normal S2, No Murmurs Abdomen: Normal Bowel Sounds, Soft, No Tenderness Extremities: No Clubbing, No Cyanosis, Normal Pulses, Other (2+ pitting edema) Skin: No Rashes Neuro: Normal Speech, Normal Tone Psych/Mental Status: Mental Status NL, Mood NL Other physical findings wang catheter in place Results Lab Laboratory Tests 12/06/21 05:09: White Blood Count 5.7, Red Blood Count 3.86L, Hemoglobin 12.2L, Hematocrit 35L, Mean Corpuscular Volume 90, Mean Corpuscular Hemoglobin 32, Mean Corpuscular Hemoglobin Concent 35, Red Cell Distribution Width 12.7, Platelet Count 215, Mean Platelet Volume 9.4, Sodium Level 125*L, Potassium Level 4.3, Chloride Level 98, Carbon Dioxide Level 19L, Anion Gap 8, Blood Urea Nitrogen 5L, Creatinine 0.60, Estimat Glomerular Filtration Rate 93, BUN/Creatinine Ratio 8, Glucose Level 124H, Calcium Level 8.2L, Corrected Calcium 9.4, Phosphorus Level 2.9, Total Bilirubin 0.5, Aspartate Amino Transf (AST/SGOT) 24, Alanine Aminotransferase (ALT/SGPT) 23, Alkaline Phosphatase 52, Total Protein 4.6L, Albumin 2.5L Assessment/Plan Assessment/Plan Assess & Plan/Chief Complaint Assessment Mr. Ravinder Garcia is a 86 y/o M with PMH of CABG for CAD, HTN, HLD, BPH, GERD, Abd hernia, DM, Hx of hypertensive encephalopathy, and melanoma who was admitted on 12/03/21 for weakness, fatigue, difficulty swallowing, and subsequent weight loss. Since admission he has been treated for hyponatramia, hypotension, now labile hypertension, fatigue, worsening debility, and dyspepsia. Plan Downgrade from ICU to floor. 1. Hyponatremia - Na 125 today, stable. s/p hypertonic saline. Starting NaCl 1 g tablets BID and fluid restriction. 2. Bilateral lower extremity edema - dependent edema from immobility and 3rd spacing, s/p albumin. Starting compression bandages during the day 3. Hx of labile hypertension - cont Propanolol 40mg BID and Hydralazine 25mg PO q8 hrs PRN. 4. Weakness/Debility - PT/OT consulted. Patient is minimum 2 person assist, Dr. Roberson discussed hospice vs NH vs 24hr care with patient and as in his current condition she is unable to care for him on her own-- wants [facility] as first choice 5. Dyspepsia - repeat swallow eval today, patient eager to try solid foods. Cont Protonix 40mg BID 6. Cough with mucus - cont Mucinex 600 mg BID 7. Melanoma - finished treatment, needs follow up with oncology. ANA BENÍTEZ DO 12/07/21 0543: Subjective Subjective/Events-last exam No major issues Moving to 4th floor Dysphagia prompting limited PO intake BP will require addition of meds Review of Systems General: Fatigue, Malaise HEENT: Dysphasia Objective Exam General: Alert, Oriented X3, Cooperative, No Acute Distress Lungs: Clear to Auscultation, Normal Air Movement Heart: Regular Rate, Normal S1, Normal S2, No Murmurs Psych/Mental Status: Mental Status NL, Mood NL Assessment/Plan Assessment/Plan Assess & Plan/Chief Complaint Supportive care Monitor sodium Supervisory-Addendum Brief Verification & Attestation Participated in pt care: history, MDM, physical Personally performed: exam, history, MDM, supervision of care Care discussed with: Medical Student Procedures: n/a Results interpretation: Verified all documentation Verification and Attestation of Medical Student E/M Service A medical student performed and documented this service in my presence. I revi ewed and verified all information documented by the medical student and made modifications to such information, when appropriate. I personally performed the physical exam and medical decision making. Ana Benítez, Dec 07, 2021,05:42 PITO BURROWS Dec 06, 2021 10:18 ANA BENÍTEZ DO Dec 07, 2021 05:43
--- NOTE | 2021-12-06 13:38 | Occupational Therapy Eval ---
OT Evaluation-General/PLF Medical Diagnosis Admission Date Dec 03, 2021 at 03:35 Medical Diagnosis: Hyponatremia Onset Date: Dec 02, 2021 Therapy Diagnosis Therapy Diagnosis: decreased ADL status Height/Weight Height (Feet): 6 Height (Inches): 0.00 Weight (Pounds): 230 Weight (Ounces): 0.0 Precautions Precautions/Isolations: Fall Prevention, Standard Precautions, Pressure Ulcer Referral Physician: Stephanie Referral Reason: Evaluation/Treatment Medical History Pertinent Medical History: CABG, CAD, DM, Dementia, Parkinson's, PVD Additional Medical History CABG, transurethral resection, CAD, HTN, PVD, Dementia, TIA, BPH, GERD, DM, melanoma Current History ED with weakness, fatigue and difficulty swallowing, n/v. Social History Home: Single Level Current Living Status: Spouse Entry Into Home: Ramp ADL-Prior Level of Function SCALE: Activities may be completed with or without assistive devices. 6-K[place]cut-mjkkkqs completes the activity by him/herself with no assistance from a helper. 5-Set-up or Clean-up Assistance-helper sets up or cleans up; patient completes activity. [place] assists only prior to or following the activity. 4-Supervision or Touching Assistance-helper provides verbal cues and/or touching/steadying and/or contact guard assistance as patient completes activ ity. Assistance may be provided throughout the activity or intermittently. 3-Partial/Moderate Assistance-helper does LESS THAN HALF the effort. [place] lifts, holds or supports trunk or limbs, but provides less than half the effort. 2-Substantial/Maximal Assistance-helper does MORE THAN HALF the effort. [place] lifts or holds trunk or limbs and provides more than half the effort. 8-Jbyuabnzh-ccwifu does ALL the effort. Patient does none of the effort to complete the activity. Or, the assistance of 2 or more helpers is required for the patient to complete the activity. If activity was not attempted, code reason: 7-Patient Refused. 9-Not Applicable-not attempted and the patient did not perform the activity before the current illness, exacerbation or injury. 10-Not Attempted due to Environmental Limitations-(lack of equipment, weather restraints, etc.). 88-Not Attempted due to Medical Conditions or Safety Concerns. ADL PLOF Comments Pt reports having assistance with all ADLS for the last month or so. His assists with all aspects of bathing, dressing, oral care and eating. Pt states difficulty eating due to tremors with movements. Self Care: Needed Some Help Functional Cognition: Needed Some Help OT Current Status Subjective Pt in recliner sleeping, agreeable to OT tx. Mental Status/Objective Attachments: Justice Catheter, IV Current Hand Dominance: Left Upper Extremity ROM decreased bilaterally. RUE shoulder flexion to approx 80 degrees, LUE to approx 90 degrees. Pt reports increased RUE shoulder pain with movement. Upper Extremity Coordination decreased bilaterally. Tremors with movement noted LUE. Pt states he has tremors in both UEs, but worse in the LUE compared to RUE. Upper Extremity Strength grossly 2+/5 BUEs ADL-Treatment Eating (QC): 7 On/Off Footwear (QC): 7 Toileting Hygiene (QC): 7 Other Treatments Pt in recliner, agreeable to OT evaluation and tx. Pt provides information about PLOF and home set up and participated in UE screen. Pt states assists with all ADLS for the last month or so, even feeding due to tremors. OT asked pt if he has tried any adaptive utensils, he has tried to use weighted utensils and weights on UEs, but they did not increase his independence. Pt has some success feeding with RUE (although he is left handed), but his typically completes most of task for him. Pt declined completing ADLs or UE exercises at this time due to wanting to rest. OT provided education on purpose and benefit of OT, he verbalized understanding, stating he wants to continue being seen by OT, but doesn't want to complete activities at this time. Post tx, pt in recliner, call light in reach and all needs met, eyes closed. Education OT Patient Education: Correct positioning, Modified ADL techniques, Progress toward Goal/Update tx plan, Purpose of tx/functional activities, Rehab process Teaching Recipient: Patient Teaching Methods: Discussion Response to Teaching: Verbalize Understanding OT Fdc Goals Snack Bar Cashier Goals Time Frame: Dec 17, 2021 Eating (QC): 3 Oral Hygiene (QC): 3 Toileting Hygiene (QC): 2 Shower/Bathe Self (QC): 2 Upper Body Dressing (QC): 3 Lower Body Dressing (QC): 2 On/Off Footwear (QC): 2 Additional Goals: 1-Demonstrate ADL Tasks, 2-Verbalize Understanding, 3- ImproveStrength/Kortney 1=Demonstrate adherence to instructed precautions during ADL tasks. 2=Patient will verbalize/demonstrate understanding of assistive devices/modifications for ADL. 3=Patient will improve strength/tolerance for activity to enable patient to perform ADL's. OT Education/Plan Problem List/Assessment Assessment: Decreased Activ Tolerance, Decreased UE Strength, Impaired Guitar Teacher rdination, Impaired Funct Balance, Impaired I ADL's, Impaired Self-Care Skills, Restricted Funct UE ROM Discharge Recommendations Plan/Recommendations: Continue POC Treatment Plan/Plan of Care Patient would benefit from OT for education, treatment and training to promote independence in ADL's, mobility, safety and/or upper extremity function for ADL's. Plan of Care: ADL Retraining, Functional Mobility, UE Funct Exercise/Act Treatment Duration: Dec 17, 2021 Frequency: 3 times per week (3-5 times per week) Estimated Hrs Per Day: .25 hour per day Rehab Potential: Guarded Time/GCodes Start Time: 13:09 Stop Time: 13:18 Total Time Billed (hr/min): 9 Billed Treatment Time 1, ALEKSEY SHARIF OT Dec 06, 2021 13:38
[2021-12-06] MEDS: hydrALAZINE (APRESOLINE) 25 MG TAB PO PRN ×2 (13:52→16:01)
--- NOTE | 2021-12-06 14:27 | Speech Therapy Daily Note ---
Speech Daily Progress Note Subjective Date Seen by Provider: Dec 06, 2021 Time Seen by Provider: 13:30 The patient was seated upright in his recliner, sleeping, upon entrance to his room by the clinician. The patient woke easily with a verbal greeting and was agreeable to participation in the dysphagia treatment session. Via multiple discussions with other treating disciplines, the patient has been reporting poor satisfaction with the prior recommended diet consistency by speech pathology. Per documentation from speech pathology, the patient was restricted to a pureed diet consistency and thin liquids due to the patient's consistent refusal of solid bolus trials throughout the initial evaluation. Objective The patient demonstrates increased participation and cooperation on this date. The patient is agreeable to P.O. trials of thin liquids via straw and dry, solid consistencies. The patient consumes multiple boluses of thin liquids via straw and two crackers. The patient feeds the items to the patient and the patient does not attempt to self-feed any consistency. Overt s/s of suspected aspiration were not demonstrated with any consistency tested. The patient displayed appr opriate retrieval of P.O. consistencies from the straw. Additionally, the patient demonstrated appropriate mastication time, bolus formation and transfer. A pharyngeal swallow was consistently triggered. Recommendations: - Regular consistency diet with thin liquids, as tolerated. - Fully upright and alert for P.O. intake. - Small, single bites and sips. - Full feeding assistance. - Monitor for s/s of suspected aspiration with P.O. intake. If demonstrated, contact speech pathology. The results and recommendations were shared with the patient and the RN immediately following completion. Assessment Assessment Current Status: Good Progress Treatment Plan Continue Plan of Care Speech Short Term Goals Short Term Goals Short Term Goals 1. The patient will tolerate trials of the least restrictive consistency without s/s of suspected aspiration. Speech Wireline Supervisor Goals Wireline Supervisor Goals 1. The patient will tolerate the least restrictive diet without s/s of suspected aspiration. Time Frame: One Week. Speech-Plan Treatment Plan Speech Therapy Treatment Plan: Continue Plan of Care Treatment Duration: Dec 10, 2021 Frequency: 1 time per week Estimated Hrs Per Day: .25 hour per day Rehab Potential: Guarded Safety Risks/Education Teaching Recipient: Patient Teaching Methods: Discussion Response to Teaching: Verbalize Understanding, Reinforcement Needed Education Topics Provided: Results, Recommendations Time Speech Therapy Time In: 13:30 Speech Therapy Time Out: 13:45 Total Billed Time: 15 Billed Treatment Time 1, STEPHANE SMITH Dec 06, 2021 14:27
[2021-12-06] MEDS: ALPRAZolam 0.25 MG (XANAX) TAB PO PRN (16:01)
[2021-12-06] MEDS: ENOXAPARIN 40 MG/0.4 ML (LOVENOX) SYR SC SCH (17:40)
[2021-12-06] MEDS: ASPIRIN E.C. 81 MG (ECOTRIN) TAB PO SCH (19:52)
[2021-12-06] MEDS: SODIUM CHLORIDE 1 GM TABLET PO SCH (19:53)
[2021-12-06] MEDS ORDERED: guaiFENesin (MUCINEX) 600 MG TAB PO SCH (21:00)
[2021-12-06] MEDS: morphine INJ 10 MG/ML 1ML (SYR OR VIAL) IVP PRN (23:24)
[2021-12-07] MEDS: PATIENT'S OWN MED (RX USE ONLY) PO SCH ×2 (03:55→16:15)
[2021-12-07 04:25] VITALS: BP 170/80
[2021-12-07] MEDS: PANTOPRAZOLE 40 MG (PROTONIX) TAB PO SCH ×2 (05:52→16:14)
[2021-12-07] MEDS: POTASSIUM CHLORIDE INJ 10 MEQ in NS IV 1000 ML 1,000 ML IV SCH ×2 (05:52→19:50)
[2021-12-07 06:04] LABS: BASOPHILS % (AUTO) 1 % (0-10); EOSINOPHILS % (AUTO) 0 % (0-10); HEMATOCRIT 35 % (40-54); HEMOGLOBIN 12.5 g/dL (13.3-17.7); LYMPHOCYTES # (AUTO) 0.4 10^3/uL (1.0-4.0); LYMPHOCYTES % (AUTO) 10 % (12-44); MEAN CORPUSCULAR HEMOGLOBIN 32 pg (25-34); MEAN CORPUSCULAR HGB CONC 35 g/dL (32-36); MEAN CORPUSCULAR VOLUME 89 fL (80-99); MONOCYTES # (AUTO) 0.6 10^3/uL (0.0-1.0); MONOCYTES % (AUTO) 13 % (0-12); NEUTROPHILS # (AUTO) 3.3 10^3/uL (1.8-7.8); NEUTROPHILS % (AUTO) 76 % (42-75); PLATELET COUNT 210 10^3/uL (130-400); WHITE BLOOD COUNT 4.4 10^3/uL (4.3-11.0)
[2021-12-07 06:26] LABS: ALBUMIN 2.3 GM/DL (3.2-4.5); BILIRUBIN,TOTAL 0.6 MG/DL (0.1-1.0); CALCIUM 7.9 MG/DL (8.5-10.1); CREATININE SERUM 0.59 MG/DL (0.60-1.30); POTASSIUM 4.4 MMOL/L (3.6-5.0); TOTAL PROTEIN 4.6 GM/DL (6.4-8.2)
[2021-12-07] MEDS ORDERED: SODIUM CHLORIDE 1 GM TABLET PO NR (07:00)
[2021-12-07 07:45] VITALS: BP 120/67
[2021-12-07] MEDS: PROPRANOLOL 20 MG (INDERAL) TABLET PO SCH ×2 (08:29→19:48)
[2021-12-07] MEDS: SENNA W/DOCUSATE (SENOKOT S) TABLET PO SCH ×2 (08:29→19:48)
[2021-12-07] MEDS: SODIUM CHLORIDE 1 GM TABLET PO SCH ×2 (08:30→21:47)
--- NOTE | 2021-12-07 09:46 | Physical Therapy Daily Note ---
PT Daily Note-Current Subjective Patient agrees to PT. Spouse present. Pain Section J - Health Conditions 1. Rarely or not at all 2. Occasionally 3. Frequently 4. Almost constantly 8. Unable to answer Pain Effect on Sleep: 1 Pain Interference with Therapy: 1 Pain Interference w/Day-to-Day: 1 Mental Status Patient Orientation: Person, Time, Situation Attachments: Justice Catheter, IV Transfers SCALE: Activities may be completed with or without assistive devices. 7-Phidmayhlm-omkgbcr completes the activity by him/herself with no assistance from a helper. 5-Set-up or Clean-up Assistance-helper sets up or cleans up; patient completes activity. [place] assists only prior to or following the activity. 4-Supervision or Touching Assistance-helper provides verbal cues and/or touching/steadying and/or contact guard assistance as patient completes activity. Assistance may be provided throughout the activity or intermittently. 3-Partial/Moderate Assistance-helper does LESS THAN HALF the effort. [place] lifts, holds or supports trunk or limbs, but provides less than half the effort. 2-Substantial/Maximal Assistance-helper does MORE THAN HALF the effort. [place] lifts or holds trunk or limbs and provides more than half the effort. 3-Anhrxajxs-nrrnka does ALL the effort. Patient does none of the effort to comp lete the activity. Or, the assistance of 2 or more helpers is required for the patient to complete the activity. If activity was not attempted, code reason: 7-Patient Refused. 9-Not Applicable-not attempted and the patient did not perform the activity before the current illness, exacerbation or injury. 10-Not Attempted due to Environmental Limitations-(lack of equipment, weather restraints, etc.). 88-Not Attempted due to Medical Conditions or Safety Concerns. Sit to Stand (QC): 3 (mod assist with sit to stand) Exercises Seated Therapy Exercises: Ankle pumps, Sit to stand (4 sets), Long arc quads, Hip flexion Seated Reps: 15 Assessment Patient requires time and assistance to complete all functional tasks. Patient able to stand to FWW with flexed trunk and bilateral knee posture. Patient fatigues and requires seated recovery periods due to weakness. [facility]. PT Long-Term Goals Long-Term Goals PT Long-Term Goals Time Frame: Dec 18, 2021 Roll Left & Right (QC): 3 Sit to Lying (QC): 3 Lying-Sitting on Side/Bed(QC): 3 Sit to Stand (QC): 3 Chair/Hgl-vc-Httlj Xfer(QC): 3 Toilet Transfer (QC): 3 PT Plan Treatment/Plan Treatment Plan: Continue Plan of Care Treatment Plan: Bed Mobility, Education, Functional Activity [place], Functional Strength, Gait, Safety, Therapeutic Exercise, Transfers Treatment Duration: Dec 18, 2021 Frequency: 6 times per week Estimated Hrs Per Day: .25 hour per day Patient and/or Family Agrees t: Yes Time/GCodes Time In: 848 Time Out: 911 Total Billed Treatment Time: 23 Total Billed Treatment 1 visit EX x 2 23 min TIARRA ENCARNACION PT Dec 07, 2021 09:46
--- NOTE | 2021-12-07 10:54 | Progress Note ---
PITO BURROWS 12/07/21 1054: Subjective Date Seen by a Provider: Dec 07, 2021 Time Seen by a Provider: 09:30 Subjective/Events-last exam Patient is feeling more confused than yesterday No pain or discomfort Coughing less Mild posterior headache, from what he thinks is resting in the recliner too much prior to admission Review of Systems HEENT: Head Aches Pulmonary: Cough Objective Exam Last Set of Vital Signs Vital Signs Date Time Temp Pulse Resp B/P (MAP) Pulse Ox O2 Delivery O2 Flow Rate FiO2 12/07/21 08:00 Room Air 12/07/21 07:45 36.4 77 18 120/67 (84) 95 Capillary Refill : Less Than 3 Seconds I&O Intake and Output 12/07/21 00:00 Intake Total 1095 ml Output Total 1825 ml Balance -730 ml Intake Oral 1095 ml Output Urine Total 1825 ml # Bowel Movements 1 General: No Acute Distress, Other (Oriented x2 (person and place, but not time or situation), somnolent) HEENT: Atraumatic, EOMI Neck: Supple Lungs: Clear to Auscultation, Normal Air Movement Heart: Regular Rate, Normal S1, Normal S2, No Murmurs Abdomen: Normal Bowel Sounds, Soft, No Tenderness, No Hepatosplenomegaly, No Masses Extremities: No Clubbing, No Cyanosis, Normal Pulses, Other (2+ pitting edema bilaterally) Skin: No Rashes, No Significant Lesion Neuro: Normal Speech, Normal Tone Psych/Mental Status: Mental Status NL, Mood NL Results Lab Laboratory Tests 12/07/21 05:58: White Blood Count 4.4, Red Blood Count 3.97L, Hemoglobin 12.5L, Hematocrit 35L, Mean Corpuscular Volume 89, Mean Corpuscular Hemoglobin 32, Mean Corpuscular Hemoglobin Concent 35, Red Cell Distribution Width 12.4, Platelet Count 210, Mean Platelet Volume 9.0, Immature Granulocyte % (Auto) 1, Neutrophils (%) (Auto) 76H, Lymphocytes (%) (Auto) 10L, Monocytes (%) (Auto) 13H, Eosinophils (%) (Auto) 0, Basophils (%) (Auto) 1, Neutrophils # (Auto) 3.3, Lymphocytes # (Auto) 0.4L, Monocytes # (Auto) 0.6, Eosinophils # (Auto) 0.0, Basophils # (Auto) 0.0, Immature Granulocyte # (Auto) 0.1, Sodium Level 123*L, Potassium [place] 4.4, Chloride Level 95L, Carbon Dioxide Level 19L, Anion Gap 9, Blood Urea Nitrogen 6L, Creatinine 0.59L, Estimat Glomerular Filtration Rate 93, BUN/Creatinine Ratio 10, Glucose Level 110H, Calcium Level 7.9L, Corrected Calcium 9.3, Total Bilirubin 0.6, Aspartate Amino Transf (AST/SGOT) 89H, Alanine Aminotransferase (ALT/SGPT) 85H, Alkaline Phosphatase 98, Total Protein 4.6L, Albumin 2.3L Procedures Procedures Swallow study 12/06/21: okay for regular diet with thin liquids EKG 12/06/21: sinus rhythm with 1st degree block, RBBB Assessment/Plan Assessment/Plan Assess & Plan/Chief Complaint Assessment Mr. Ravinder Garcia is a 86 y/o M with PMH of CABG for CAD, HTN, HLD, BPH, GERD, Abd hernia, DM, Hx of hypertensive encephalopathy, and melanoma who was admitted on 12/03/21 for weakness, fatigue, difficulty swallowing, and subsequent weight loss. Since admission he has been treated for hyponatramia, hypotension, now labile hypertension, fatigue, worsening debility, and dyspepsia. Plan 1. Hyponatremia due to SIADH - Na 123 today, slightly more confused today. s/p hypertonic saline on 12/05. Cont NaCl 1 g tablets BID and fluid restriction. Ur Na: 47, Cortisol WNL, TSH WNL. 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 2. Bilateral lower extremity edema - dependent edema from immobility and 3rd spacing, s/p albumin. Cont compression bandages during the day 3. Hx of labile hypertension - cont Propanolol 40mg BID and Hydralazine 25mg PO q8 hrs PRN. 4. Weakness/Debility - PT/OT consulted. Patient is minimum 2 person assist, Dr. Roberson discussed hospice vs NH vs 24hr care with patient and as in his current condition she is unable to care for him on her own-- wants [facility] as first choice. Cont Ensure protein 5. Dyspepsia - passed swallow study, okay for regular diet with thin liquids. Cont Protonix 40mg BID 6. Cough with mucus - cont Mucinex 600 mg BID 7. Melanoma - finished treatment, needs follow up with oncology. Code Status: DNR Dispo: likely discharge to alf tomorrow ANA BENÍTEZ DO 12/08/21 0514: Subjective Subjective/Events-last exam Patient more declined today Sodium 123 NS infusing Sodium tablets ordered and fluid restriction ordered NH placement pending Overall prognosis is very poor Objective Exam General: Other (Oriented x2 (person and place, but not time or situation), somnolent) Lungs: Clear to Auscultation Heart: Regular Rate Assessment/Plan Assessment/Plan Assess & Plan/Chief Complaint [place] prognosis Supervisory-Addendum Brief Verification & Attestation Participated in pt care: history, MDM, physical Personally performed: exam, history, MDM, supervision of care Care discussed with: Medical Student Procedures: n/a Results interpretation: Verified all documentation Verification and Attestation of Medical Student E/M Service A medical student performed and documented this service in my presence. I reviewed and verified all information documented by the medical student and made modifications to such information, when appropriate. I personally performed the physical exam and medical decision making. Ana Benítez Dec 08, 2021,05:13 PITO BURROWS Dec 07, 2021 10:54 ANA BENÍTEZ DO Dec 08, 2021 05:14
[2021-12-07 11:25] VITALS: BP 136/65
--- NOTE | 2021-12-07 12:03 | Occupational Ther Daily Note ---
OT Current Status-Daily Note Subjective Pt in recliner, eyes closed. Pt opened eyes upon OT arrival and agreeable to OT tx. ADL-Treatment Therapy Code Descriptions/Definitions Functional [place] Measure: 0=Not Assessed/NA 4=Minimal Assistance 1=Total Assistance 5=Supervision or Setup 2=Maximal Assistance 6=Modified [place] 3=Moderate Assistance 7=Complete IndependenceSCALE: Activities may be completed with or without assistive devices. 9-Wceazlrhne-uugabpq completes the activity by him/herself with no assistance from a helper. 5-Set-up or Clean-up Assistance-helper sets up or cleans up; patient completes a ctivity. [place] assists only prior to or following the activity. 4-Supervision or Touching Assistance-helper provides verbal cues and/or touching/steadying and/or contact guard assistance as patient completes activity. Assistance may be provided throughout the activity or intermittently. 3-Partial/Moderate Assistance-helper does LESS THAN HALF the effort. [place] lifts, holds or supports trunk or limbs, but provides less than half the effort. 2-Substantial/Maximal Assistance-helper does MORE THAN HALF the effort. [place] lifts or holds trunk or limbs and provides more than half the effort. 1-Wdhgzbynb-brkays does ALL the effort. Patient does none of the effort to complete the activity. Or, the assistance of 2 or more helpers is required for the patient to complete the activity. If activity was not attempted, code reason: 7-Patient Refused. 9-Not Applicable-not attempted and the patient did not perform the activity before the current illness, exacerbation or injury. 10-Not Attempted due to Environmental Limitations-(lack of equipment, weather restraints, etc.). 88-Not Attempted due to Medical Conditions or Safety Concerns. Other Treatment OT tx focused on increasing BUE strength and activity tolerance. Pt completed x10 reps AROM for the following BUE exercises: shoulder flexion, elbow flexion/extension and front punch. Pt had difficulty keeping his eyes open during tasks, states he is tired with exercises and requests to rest. Post tx, pt in recliner, call light in reach and all needs met Education OT Patient Education: Correct positioning, Energy conservation, Exercise program, Modified ADL techniques, Progress toward Goal/Update tx plan, Purpose of tx/functional activities Teaching Recipient: Patient Teaching Methods: Discussion Response to Teaching: Reinforcement Needed OT Half-Way Goals Devil Tender Goals Time Frame: Dec 17, 2021 Eating (QC): 3 Oral Hygiene (QC): 3 Toileting Hygiene (QC): 2 Shower/Bathe Self (QC): 2 Upper Body Dressing (QC): 3 Lower Body Dressing (QC): 2 On/Off Footwear (QC): 2 Additional Goals: 1-Demonstrate ADL Tasks, 2-Verbalize Understanding, 3- ImproveStrength/[place] 1=Demonstrate adherence to instructed precautions during ADL tasks. 2=Patient will verbalize/demonstrate understanding of assistive devices/modifications for ADL. 3=Patient will improve strength/tolerance for activity to enable patient to perform ADL's. OT Education/Plan Problem List/Assessment Assessment: Decreased Activ Tolerance, Decreased UE Strength, Impaired Funct Balance, Impaired I ADL's, Impaired Self-Care Skills Discharge Recommendations Plan/Recommendations: Continue POC Treatment Plan/Plan of Care Patient would benefit from OT for education, treatment and training to promote independence in ADL's, mobility, safety and/or upper extremity function for ADL's. Plan of Care: ADL Retraining, Functional Mobility, UE Funct Exercise/Act Treatment Duration: Dec 17, 2021 Frequency: 3 times per week (3-5 times per week) Estimated Hrs Per Day: .25 hour per day Rehab Potential: Guarded Time/GCodes Start Time: 11:33 Stop Time: 11:42 Total Time Billed (hr/min): 9 Billed Treatment Time 1, EX ALEKSEY MELGAR OT Dec 07, 2021 12:03
[2021-12-07 15:30] VITALS: BP 170/77
[2021-12-07 19:40] VITALS: BP 198/90
[2021-12-07] MEDS: ENOXAPARIN 40 MG/0.4 ML (LOVENOX) SYR SC SCH (19:47)
[2021-12-07] MEDS: ASPIRIN E.C. 81 MG (ECOTRIN) TAB PO SCH (19:48)
[2021-12-07] MEDS: ACETAMINOPHEN 325 MG TABLET PO PRN (23:08)
[2021-12-07 23:53] VITALS: BP 147/74
[2021-12-08] MEDS: morphine INJ 10 MG/ML 1ML (SYR OR VIAL) IVP PRN (01:44)
[2021-12-08 03:49] VITALS: BP 166/78
[2021-12-08] MEDS: PATIENT'S OWN MED (RX USE ONLY) PO SCH (04:13)
[2021-12-08] MEDS: PANTOPRAZOLE 40 MG (PROTONIX) TAB PO SCH (05:51)
[2021-12-08 06:10] LABS: BASOPHILS % (AUTO) 1 % (0-10); EOSINOPHILS % (AUTO) 1 % (0-10); HEMATOCRIT 34 % (40-54); HEMOGLOBIN 11.8 g/dL (13.3-17.7); LYMPHOCYTES # (AUTO) 0.7 10^3/uL (1.0-4.0); LYMPHOCYTES % (AUTO) 16 % (12-44); MEAN CORPUSCULAR HEMOGLOBIN 31 pg (25-34); MEAN CORPUSCULAR HGB CONC 35 g/dL (32-36); MEAN CORPUSCULAR VOLUME 89 fL (80-99); MEAN PLATELET VOLUME 9.1 fL (9.0-12.2); MONOCYTES # (AUTO) 0.6 10^3/uL (0.0-1.0); MONOCYTES % (AUTO) 13 % (0-12); NEUTROPHILS # (AUTO) 3.1 10^3/uL (1.8-7.8); NEUTROPHILS % (AUTO) 67 % (42-75); PLATELET COUNT 206 10^3/uL (130-400); WHITE BLOOD COUNT 4.7 10^3/uL (4.3-11.0)
[2021-12-08 06:20] LABS: ALBUMIN 2.2 GM/DL (3.2-4.5)
[2021-12-08 06:21] LABS: POTASSIUM 4.5 MMOL/L (3.6-5.0)
[2021-12-08 06:22] LABS: CALCIUM 7.7 MG/DL (8.5-10.1)
[2021-12-08 06:23] LABS: TOTAL PROTEIN 4.5 GM/DL (6.4-8.2)
[2021-12-08 06:25] LABS: BILIRUBIN,TOTAL 0.4 MG/DL (0.1-1.0)
[2021-12-08 06:27] LABS: CREATININE SERUM 0.6 MG/DL (0.60-1.30)
[2021-12-08 07:49] VITALS: BP 177/76
[2021-12-08] MEDS: PROPRANOLOL 20 MG (INDERAL) TABLET PO SCH (08:45)
[2021-12-08] MEDS: SODIUM CHLORIDE 1 GM TABLET PO SCH (08:46)
[2021-12-08] MEDS: SENNA W/DOCUSATE (SENOKOT S) TABLET PO SCH (08:46)
[2021-12-08] MEDS ORDERED: polyethylene glycoL POWDER 17 GM (MIRALAX) PACK PO NR (10:00)
[2021-12-08] MEDS ORDERED: BISACODYL 10 MG SUPP (DULCOLAX) PR NR (10:00)
[2021-12-08] MEDS ORDERED: ALPR0.254 PO (10:04)
[2021-12-08] MEDS ORDERED: OXC5T PO (10:04)
[2021-12-08] MEDS ORDERED: ACET-3075 PO (10:04)
[2021-12-08] MEDS ORDERED: ASPI-1238 PO (10:04)
[2021-12-08] MEDS ORDERED: HYDR-3924 PO (10:04)
[2021-12-08] MEDS ORDERED: SENN1TAB76 PO (10:04)
[2021-12-08] MEDS ORDERED: SALI45SP MM (10:04)
[2021-12-08] MEDS ORDERED: NF-NACL1GT PO (10:04)
[2021-12-08] MEDS ORDERED: ENOX40DI8 SC (10:04)
[2021-12-08] MEDS ORDERED: FURO20TA4 PO (10:04)
[2021-12-08] MEDS ORDERED: PROP60TA17 PO (10:04)
[2021-12-08] MEDS ORDERED: PANT40TA52 PO (10:04)
[2021-12-08] MEDS ORDERED: ONDA8TAB13 PO (10:04)
[2021-12-08] MEDS ORDERED: MEGE40TA5 PO (10:04)
[2021-12-08] MEDS ORDERED: HYDR-3923 PO (10:04)
--- NOTE | 2021-12-08 10:06 | Discharge Inst-Skilled Nursing ---
Discharge Inst-Skilled NF Reconcile Patient Problems Problems Reviewed?: Yes Patient Instructions Patient Problems: Debility SIADH Consult/Follow Up/Orders Follow Up Appt.: DR Roberson [place] rounds Skilled NF Admit to: [facility] Certification (SNF) I certify that SNF services are required to be given on an inpatient basis because of the above named patient's need for assisted care on a continuing basis for the conditions(s) for which he/she was receiving inpatient hospital services prior to his/her transfer to the SNF. Nursing Home Facility Order: Nursing Services, Inspector General-Evaluate & Treat, Physical Therapy-Evaluate & Treat Oxygen Delivery Method: Room Air Discharge Diet: No Restrictions Resuscitation Status: Do Not Resuscitate New & Resume Previous Orders New Medications: Enoxaparin Sodium (Enoxaparin Sodium) 40 Mg/0.4 Ml Syringe 40 MG SC Q24H, #14 SYRINGE Hydralazine HCl (Hydralazine HCl) 25 Mg Tablet 25 MG PO Q8H PRN for hypertension, #60 TAB Oxycodone Hcl (Oxyir Tablet) 5 Mg Tab 5 MG PO Q4H PRN for PAIN-SEVERE (8-10), #30 TAB Saliva Stimulant Agents Comb.3 (Biotene Moisturizing Mouth) 1 Each [place] 0 EACH MM NEEDED PRN for DRY MOUTH, #1 EA prn Sennosides/Docusate Sodium (Stool Softener-Laxative Tablet) 8.6 Mg-50 Mg Tablet 1 EA PO BID, #30 TAB Sodium Chloride (Sodium Chloride) 1 Gram Tab 1 GM PO BID, #60 TAB Continued Medications: Acetaminophen/Diphenhydramine (Tylenol Pm Ex-Strength Caplet) 500 Mg-25 Mg Tablet 2 EACH PO HS, #60 TAB (This prescription has been renewed) ALPRAZolam (ALPRAZolam) 0.25 Mg Tablet 0.25 MG PO Q6H PRN for ANXIETY, #20 TAB (This prescription has been renewed) Aspirin (Aspirin EC) 81 Mg Tablet. 81 MG PO HS, #30 TAB (This prescription has been renewed) Furosemide (Furosemide) 20 Mg Tablet 20 MG PO DAILY, #30 TAB (This prescription has been renewed) Guaifenesin/Dextromethorphan (Mucinex Dm ER 1,200-60 mg Tab) 1,200 Mg-60 Mg Tbmp.12hr 1 EACH PO Q12H, EA Hydralazine HCl (Hydralazine HCl) 50 Mg Tablet 50 MG PO 0600,1400,2200, #90 TAB (This prescription has been renewed) Megestrol Acetate (Megestrol Acetate) 40 Mg Tablet 40 MG PO QID PRN for APPETITE STIMULATION, #60 TAB (This prescription has been renewed) Ondansetron (Ondansetron Odt) 8 Mg Tab.rapdis 8 MG PO Q6H PRN for NAUSEA/VOMITING-1ST LINE, #30 TAB (This prescription has b een renewed) Pantoprazole Sodium (Pantoprazole Sodium) 40 Mg Tablet.dr 40 MG PO BIDAC, #60 TAB (This prescription has been renewed) LAST FILLED 08-02-2021 #60/30 DAY SUPPLY Propranolol HCl (Propranolol HCl) 60 Mg Tablet 60 MG PO BID, #60 TAB (This prescription has been renewed) Discontinued Medications: Docusate Sodium (Docusate Sodium) 100 Mg Capsule 100 MG PO BID, CAP Hydralazine HCl (Hydralazine HCl) 25 Mg Tablet 25 MG PO Q8H PRN for BLOOD PRESSURE, TAB TAKES 50MG EVERY 8 HOURS, IF BP IS HIGH A 25MG DOSE IS GIVEN Hydrocodone/Acetaminophen (Hydrocodone-Acetamin 5-325 mg) 5 Mg-325 Mg Tablet 1 EA PO Q8H PRN for PAIN-MODERATE (5-7), TAB Metformin HCl (Metformin HCl ER) 500 Mg Tab.er.24h 500 MG PO BIDAC, TAB Potassium Chloride (K-Tab ER) 10 Meq Tablet.er 10 MEQ PO DAILY, TAB Ubidecarenone (Coq-10) 100 Mg Capsule 100 MG PO DAILY, CAP Ana Brown Dec 08, 2021 10:05 ANA BROWN DO Dec 08, 2021 10:06
--- NOTE | 2021-12-08 10:07 | Discharge Summary ---
Diagnosis/Chief Complaint Date of Admission Dec 03, 2021 at 03:35 Date of Discharge Discharge Date: Dec 08, 2021 Discharge Diagnosis 1. Hyponatremia due to SIADH - Na 123 today, slightly more confused today. s/p hypertonic saline on 12/05. Cont NaCl 1 g tablets BID and fluid restriction. Ur Na: 47, Cortisol WNL, TSH WNL. 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 2. Bilateral lower extremity edema - dependent edema from immobility and 3rd spacing, s/p albumin. Cont compression bandages during the day 3. Hx of labile hypertension - cont Propanolol 40mg BID and Hydralazine 25mg PO q8 hrs PRN. 4. Weakness/Debility - PT/OT consulted. Patient is minimum 2 person assist, Dr. Roberson discussed hospice vs NH vs 24hr care with patient and as in his current condition she is unable to care for him on her own-- wants [facility] as first choice. Cont Ensure protein 5. Dyspepsia - passed swallow study, okay for regular diet with thin liquids. Cont Protonix 40mg BID 6. Cough with mucus - cont Mucinex 600 mg BID 7. Melanoma - finished treatment, needs follow up with oncology. Code Status: DNR Dispo: likely discharge to senior care tomorrow Discharge Summary Discharge Physical Examination Allergies: Coded Allergies: hydrocodone (Unverified Allergy, Mild, 03/22/07) amlodipine (Unverified Allergy, Unknown, 10/25/13) benazepril (Unverified Allergy, Unknown, 10/25/13) carbidopa (Unverified Allergy, Unknown, 05/18/21) codeine (Verified Allergy, Unknown, 09/02/05) levodopa (Unverified Allergy, Unknown, 05/18/21) telmisartan (Unverified Allergy, Unknown, 10/25/13) Vitals & I&Os Vital Signs Date Time Temp Pulse Resp B/P (MAP) Pulse Ox O2 Delivery O2 Flow Rate FiO2 12/08/21 15:10 36.3 58 20 152/70 97 Room Air General Appearance: Alert, Oriented X3, Cooperative Respiratory: Clear to Auscultation Cardiovascular: Regular Rate Psych/Mental Status: Mental Status NL Hospital Course Was the Problem List Reviewed?: Yes Mr. Ravinder Garcia is a 86 y/o male with PMH CABG, CAD, HTN, HLD, GERD, BPH, Abd hernia, DM, Hx of HTN encephalopathy, and melanona who was admitted on 12/03/21 for weakness, fatigue, difficulty swallowing due to mucous, and weight loss. On admission he was found to be hyponatremic, and was eventually started on hypertonic saline which proved to have a minimal response. 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 He was started on NaCl 1g tablets twice daily. He has had decreased appetite ever since finishing Keytruda about 3 weeks ago. He eventually was able to tolerate a regular diet with thin liquids and we encouraged him to increase his oral intake. He was having bilateral lower extremity edema on presentation, and was given IV albumin to help prevent some of the 3rd spacing, and has had some improvement with his edema. He was encouraged to wear compression socks. Initially he was hypotensive on admission but eventually became hypertensive, and was started on Propanolol 40mg BID and hydralazine 25mg PO TID. He is stable and will be discharged to a senior care on 12/08/21. His overall prognosis is poor and will need to work on his oral intake for better nutrition. He should be maintained on a fluid restriction until he is able to follow up with Dr. Roberson as an outpatient. [facility] Labs (last 24 hrs) Laboratory Tests 12/03/21 02:38: White Blood Count 7.8, Red Blood Count 4.57, Hemoglobin 14.4, Hematocrit 41, Mean Corpuscular Volume 90, Mean Corpuscular Hemoglobin 32, Mean Corpuscular Hemoglobin Concent 35, Red Cell Distribution Width 12.3, Platelet Count 266, Mean Platelet Volume 8.8L, Immature Granulocyte % (Auto) 1, Neutrophils (%) (Auto) 74, Lymphocytes (%) (Auto) 10L, Monocytes (%) (Auto) 15H, Eosinophils (%) (Auto) 0, Basophils (%) (Auto) 1, Neutrophils # (Auto) 5.8, Lymphocytes # (Auto) 0.8L, Monocytes # (Auto) 1.1H, Eosinophils # (Auto) 0.0, Basophils # (Auto) 0.1, Immature Granulocyte # (Auto) 0.1, Prothrombin Time 13.5, INR Comment 1.0, Activated Partial Thromboplast Time 26, Sodium Level 122*L, Potassium Level 4.1, Chloride Level 91L, Carbon Dioxide Level 20L, Anion Gap 11, Blood Urea Nitrogen 10, Creatinine 0.76, Estimat Glomerular Filtration Rate 86, BUN/Creatinine Ratio 13, Glucose Level 113H, Calcium Level 8.6, Corrected Calcium 9.3, Magnesium Level 1.3L, Total Bilirubin 0.6, Aspartate Amino Transf (AST/SGOT) 18, Alanine Aminotransferase (ALT/SGPT) 16, Alkaline Phosphatase 71, Total Creatine Kinase 25L, Creatine Kinase MB 1.7, Myoglobin 32.3, Troponin I < 0.028, B-Type Natriuretic Peptide 59.2, Total Protein 5.6L, Albumin 3.1L, Amylase Level 34, Lipase 15, TSH [place] Testing 3.87 12/03/21 02:50: Urine Color YELLOW, Urine Clarity CLEAR, Urine pH 5.5, Urine Specific [place] 1.020, Urine Protein NEGATIVE, Urine Glucose (UA) NEGATIVE, Urine Ketones NEGATIVE, Urine Nitrite NEGATIVE, Urine Bilirubin NEGATIVE, Urine Urobilinogen 0.2, Urine Leukocyte Esterase NEGATIVE, Urine RBC (Auto) NEGATIVE, Urine RBC NONE, Urine WBC RARE, Urine Crystals NONE, Urine Bacteria TRACE, Urine Casts N ONE, Urine Mucus SMALLH, Urine Culture Indicated NO, Influenza Type A (RT-PCR) Not Detected, Influenza Type B (RT-PCR) Not Detected, SARS-CoV-2 RNA (RT-PCR) Not Detected 12/03/21 19:00: Sodium Level 125*L, Potassium Level 4.3, Chloride Level 95L, Carbon Dioxide Level 21, Anion Gap 9, Blood Urea Nitrogen 10, Creatinine 0.72, Estimat Glomerular Filtration Rate 88, BUN/Creatinine Ratio 14, Glucose Level 129H, Calcium Level 8.2L 12/04/21 01:00: Sodium Level 123*L, Potassium Level 4.3, Chloride Level 96L, Carbon Dioxide Level 20L, Anion Gap 7, Blood Urea Nitrogen 11, Creatinine 0.70, Estimat Glomerular Filtration Rate 89, BUN/Creatinine Ratio 16, Glucose Level 137H, Calcium Level 7.6L 12/04/21 05:20: White Blood Count 6.4, Red Blood Count 3.59L, Hemoglobin 11.3#L, Hematocrit 32L, Mean Corpuscular Volume 89, Mean Corpuscular Hemoglobin 31, Mean Corpuscular Hemoglobin Concent 35, Red Cell Distribution Width 12.5, Platelet Count 193, Mean Platelet Volume 9.1, Immature Granulocyte % (Auto) 1, Neutrophils (%) (Auto) 64, Lymphocytes (%) (Auto) 17, Monocytes (%) (Auto) 17H, Eosinophils (%) (Auto) 1, Basophils (%) (Auto) 1, Neutrophils # (Auto) 4.1, Lymphocytes # (Auto) 1.1, Monocytes # (Auto) 1.1H, Eosinophils # (Auto) 0.0, Basophils # (Auto) 0.0, Immature Granulocyte # (Auto) 0.1, Sodium Level 125*L, Potassium Level 4.5, Chloride Level 98, Carbon Dioxide Level 20L, Anion Gap 7, Blood Urea Nitrogen 10, Creatinine 0.67, Estimat Glomerular Filtration Rate 90, BUN/Creatinine Ratio 15, Glucose Level 117H, Calcium Level 7.7L, Phosphorus Level 3.1, Magnesium Level 1.6, Thyroid Stimulating Hormone (TSH) 2.36, Free Thyroxine 0.93 12/04/21 08:35: Sodium Level 126L, Potassium Level 4.3, Chloride Level 98, Carbon Dioxide Level 21, Anion Gap 7, Blood Urea Nitrogen 9, Creatinine 0.65, Estimat Glomerular Filtration Rate 91, BUN/Creatinine Ratio 14, Glucose Level 127H, Calcium Level 7.7L 12/04/21 09:40: Urine Random Sodium 47, Urine Random Potassium 47, Urine Random Chloride 60, Total Cortisol 13.2 12/04/21 13:50: Sodium Level 125*L, Potassium Level 4.2, Chloride Level 98, Carbon Dioxide Level 21, Anion Gap 6, Blood Urea Nitrogen 10, Creatinine 0.66, Estimat Glomerular Filtration Rate 90, BUN/Creatinine Ratio 15, Glucose Level 155H, Calcium Level 7.7L 12/05/21 05:13: White Blood Count 7.1, Red Blood Count 3.74L, Hemoglobin 11.6L, Hematocrit 33L, Mean Corpuscular Volume 89, Mean Corpuscular Hemoglobin 31, Mean Corpuscular Hemoglobin Concent 35, Red Cell Distribution Width 12.4, Platelet Count 205, Mean Platelet Volume 9.2, Sodium Level 127L, Potassium Level 4.2, Chloride Level 100, Carbon Dioxide Level 20L, Anion Gap 7, Blood Urea Nitrogen 7, Creatinine 0.64, Estimat Glomerular Filtration Rate 91, BUN/Creatinine Ratio 11, Glucose Level 137H, Calcium Level 8.0L, Corrected Calcium 9.2, Phosphorus Level 2.6, Magnesium Level 1.6, Total Bilirubin 0.5, Aspartate Amino Transf (AST/SGOT) 22, Alanine Aminotransferase (ALT/SGPT) 20, Alkaline Phosphatase 50, Total Protein 4.5L, Albumin 2.5L 12/06/21 05:09: White Blood Count 5.7, Red Blood Count 3.86L, Hemoglobin 12.2L, Hematocrit 35L, Mean Corpuscular Volume 90, Mean Corpuscular Hemoglobin 32, Mean Corpuscular Hemoglobin Concent 35, Red Cell Distribution Width 12.7, Platelet Count 215, Mean Platelet Volume 9.4, Sodium Level 125*L, Potassium Level 4.3, Chloride Level 98, Carbon Dioxide Level 19L, Anion Gap 8, Blood Urea Nitrogen 5L, Creatinine 0.60, Estimat Glomerular Filtration Rate 93, BUN/Creatinine Ratio 8, Glucose Level 124H, Calcium Level 8.2L, Corrected Calcium 9.4, Phosphorus Level 2.9, Total Bilirubin 0.5, Aspartate Amino Transf (AST/SGOT) 24, Alanine Aminotransferase (ALT/SGPT) 23, Alkaline Phosphatase 52, Total Protein 4.6L, Albumin 2.5L 12/07/21 05:58: White Blood Count 4.4, Red Blood Count 3.97L, Hemoglobin 12.5L, Hematocrit 35L, Mean Corpuscular Volume 89, Mean Corpuscular Hemoglobin 32, Mean Corpuscular Hemoglobin Concent 35, Red Cell Distribution Width 12.4, Platelet Count 210, Mean Platelet Volume 9.0, Sodium Level 123*L, Potassium Level 4.4, Chloride Level 95L, Carbon Dioxide Level 19L, Anion Gap 9, Blood Urea Nitrogen 6L, Creatinine 0.59L, Estimat Glomerular Filtration Rate 93, BUN/Creatinine Ratio 10, Glucose Level 110H, Calcium Level 7.9L, Corrected Calcium 9.3, Total Bilirubin 0.6, Aspartate Amino Transf (AST/SGOT) 89H, Alanine Aminotransferase (ALT/SGPT) 85H, Alkaline Phosphatase 98, Total Protein 4.6L, Albumin 2.3L, Immature Granulocyte % (Auto) 1, Neutrophils (%) (Auto) 76H, Lymphocytes (%) (Auto) 10L, Monocytes (%) (Auto) 13H, Eosinophils (%) (Auto) 0, Basophils (%) (Auto) 1, Neutrophils # (Auto) 3.3, Lymphocytes # (Auto) 0.4L, Monocytes # (Auto) 0.6, Eosinophils # (Auto) 0.0, Basophils # (Auto) 0.0, Immature Granulocyte # (Auto) 0.1 12/08/21 06:00: White Blood Count 4.7, Red Blood Count 3.78L, Hemoglobin 11.8L, Hematocrit 34L, Mean Corpuscular Volume 89, Mean Corpuscular Hemoglobin 31, Mean Corpuscular Hemoglobin Concent 35, Red Cell Distribution Width 12.6, Platelet Count 206, Mean Platelet Volume 9.1, Sodium Level 123*L, Potassium Level 4.5, Chloride Level 95L, Carbon Dioxide Level 22, Anion Gap 6, Blood Urea Nitrogen 7, Creatinine 0.60, Estimat Glomerular Filtration Rate 93, BUN/Creatinine Ratio 12, Glucose Level 108H, Calcium Level 7.7L, Corrected Calcium 9.1, Total Bilirubin 0.4, Aspartate Amino Transf (AST/SGOT) 84H, Alanine Aminotransferase (ALT/SGPT) 95H, Alkaline Phosphatase 91, Total Protein 4.5L, Albumin 2.2L, Immature Granulocyte % (Auto) 2, Neutrophils (%) (Auto) 67, Lymphocytes (%) (Auto) 16, Monocytes (%) (Auto) 13H, Eosinophils (%) (Auto) 1, Basophils (%) (Auto) 1, Neutrophils # (Auto) 3.1, Lymphocytes # (Auto) 0.7L, Monocytes # (Auto) 0.6, Eosinophils # (Auto) 0.0, Basophils # (Auto) 0.0, Immature Granulocyte # (Auto) 0.1 Pending Labs Laboratory Tests 12/03/21 02:38: White Blood Count 7.8, Red Blood Count 4.57, Hemoglobin 14.4, Hematocrit 41, Mean Corpuscular Volume 90, Mean Corpuscular Hemoglobin 32, Mean Corpuscular Hemoglobin Concent 35, Red Cell Distribution Width 12.3, Platelet Count 266, Mean Platelet Volume 8.8, Immature Granulocyte % (Auto) 1, Neutrophils (%) (Auto) 74, Lymphocytes (%) (Auto) 10, Monocytes (%) (Auto) 15, Eosinophils (%) (Auto) 0, Basophils (%) (Auto) 1, Neutrophils # (Auto) 5.8, Lymphocytes # (Auto) 0.8, Monocytes # (Auto) 1.1, Eosinophils # (Auto) 0.0, Basophils # (Auto) 0.1, Immature Granulocyte # (Auto) 0.1, Prothrombin Time 13.5, INR Comment 1.0, Activated Partial Thromboplast Time 26, Sodium Level 122, Potassium Level 4.1, Chloride Level 91, Carbon Dioxide Level 20, Anion Gap 11, Blood Urea Nitrogen 10, Creatinine 0.76, Estimat Glomerular Filtration Rate 86, BUN/Creatinine Ratio 13, Glucose Level 113, Calcium Level 8.6, Corrected Calcium 9.3, Magnesium Level 1.3, Total Bilirubin 0.6, Aspartate Amino Transf (AST/SGOT) 18, Alanine Aminotransferase (ALT/SGPT) 16, Alkaline Phosphatase 71, Total Creatine Kinase 25, Creatine Kinase MB 1.7, Myoglobin 32.3, Troponin I < 0.028, B-Type Natriuretic Peptide 59.2, Total Protein 5.6, Albumin 3.1, Amylase Level 34, Lipase 15, TSH [place] Testing 3.87 12/03/21 02:50: Urine Color YELLOW, Urine Clarity CLEAR, Urine pH 5.5, Urine Specific [place] 1.020, Urine Protein NEGATIVE, Urine Glucose (UA) NEGATIVE, Urine Ketones NEGATIVE, Urine Nitrite NEGATIVE, Urine Bilirubin NEGATIVE, Urine Urobilinogen 0.2, Urine Leukocyte Esterase NEGATIVE, Urine RBC (Auto) NEGATIVE, Urine RBC NONE, Urine WBC RARE, Urine Crystals NONE, Urine Bacteria TRACE, Urine Casts NONE, Urine Mucus SMALL, Urine Culture Indicated NO, Influenza Type A (RT-PCR) Not Detected, Influenza Type B (RT-PCR) Not Detected, SARS-CoV-2 RNA (RT-PCR) Not Detected 12/03/21 19:00: Sodium Level 125, Potassium Level 4.3, Chloride Level 95, Carbon Dioxide Level 21, Anion Gap 9, Blood Urea Nitrogen 10, Creatinine 0.72, Estimat Glomerular Filtration Rate 88, BUN/Creatinine Ratio 14, Glucose Level 129, Calcium Level 8.2 12/04/21 01:00: Sodium Level 123, Potassium Level 4.3, Chloride Level 96, Carbon Dioxide Level 20, Anion Gap 7, Blood Urea Nitrogen 11, Creatinine 0.70, Estimat Glomerular Filtration Rate 89, BUN/Creatinine Ratio 16, Glucose Level 137, Calcium Level 7.6 12/04/21 05:20: White Blood Count 6.4, Red Blood Count 3.59, Hemoglobin 11.3, Hematocrit 32, Hui n Corpuscular Volume 89, Mean Corpuscular Hemoglobin 31, Mean Corpuscular Hemoglobin Concent 35, Red Cell Distribution Width 12.5, Platelet Count 193, Mean Platelet Volume 9.1, Immature Granulocyte % (Auto) 1, Neutrophils (%) (Auto) 64, Lymphocytes (%) (Auto) 17, Monocytes (%) (Auto) 17, Eosinophils (%) (Auto) 1, Basophils (%) (Auto) 1, Neutrophils # (Auto) 4.1, Lymphocytes # (Auto) 1.1, Monocytes # (Auto) 1.1, Eosinophils # (Auto) 0.0, Basophils # (Auto) 0.0, Immature Granulocyte # (Auto) 0.1, Sodium Level 125, Potassium Level 4.5, Chloride Level 98, Carbon Dioxide Level 20, Anion Gap 7, Blood Urea Nitrogen 10, Creatinine 0.67, Estimat Glomerular Filtration Rate 90, BUN/Creatinine Ratio 15, Glucose Level 117, Calcium Level 7.7, Phosphorus Level 3.1, Magnesium Level 1.6, Thyroid Stimulating Hormone (TSH) 2.36, Free Thyroxine 0.93 12/04/21 08:35: Sodium Level 126, Potassium Level 4.3, Chloride Level 98, Carbon Dioxide Level 21, Anion Gap 7, Blood Urea Nitrogen 9, Creatinine 0.65, Estimat Glomerular Filtration Rate 91, BUN/Creatinine Ratio 14, Glucose Level 127, Calcium Level 7.7 12/04/21 09:40: Urine Random Sodium 47, Urine Random Potassium 47, Urine Random Chloride 60, Total Cortisol 13.2 12/04/21 13:50: Sodium Level 125, Potassium Level 4.2, Chloride Level 98, Carbon Dioxide Level 21, Anion Gap 6, Blood Urea Nitrogen 10, Creatinine 0.66, Estimat Glomerular Filtration Rate 90, BUN/Creatinine Ratio 15, Glucose Level 155, Calcium Level 7.7 12/05/21 05:13: White Blood Count 7.1, Red Blood Count 3.74, Hemoglobin 11.6, Hematocrit 33, Mean Corpuscular Volume 89, Mean Corpuscular Hemoglobin 31, Mean Corpuscular Hemoglobin Concent 35, Red Cell Distribution Width 12.4, Platelet Count 205, Mean Platelet Volume 9.2, Sodium Level 127, Potassium Level 4.2, Chloride Level 100, Carbon Dioxide Level 20, Anion Gap 7, Blood Urea Nitrogen 7, Creatinine 0.64, Estimat Glomerular Filtration Rate 91, BUN/Creatinine Ratio 11, Glucose Level 137, Calcium Level 8.0, Corrected Calcium 9.2, Phosphorus Level 2.6, Magnesium Level 1.6, Total Bilirubin 0.5, Aspartate Amino Transf (AST/SGOT) 22, Alanine Aminotransferase (ALT/SGPT) 20, Alkaline Phosphatase 50, Total Protein 4.5, Albumin 2.5 12/06/21 05:09: White Blood Count 5.7, Red Blood Count 3.86, Hemoglobin 12.2, Hematocrit 35, Mean Corpuscular Volume 90, Mean Corpuscular Hemoglobin 32, Mean Corpuscular Hemoglobin Concent 35, Red Cell Distribution Width 12.7, Platelet Count 215, Mean Platelet Volume 9.4, Sodium Level 125, Potassium Level 4.3, Chloride Level 98, Carbon Dioxide Level 19, Anion Gap 8, Blood Urea Nitrogen 5, Creatinine 0.60, Estimat Glomerular Filtration Rate 93, BUN/Creatinine Ratio 8, Glucose Level 124, Calcium Level 8.2, Corrected Calcium 9.4, Phosphorus Level 2.9, Total Bilirubin 0.5, Aspartate Amino Transf (AST/SGOT) 24, Alanine Aminotransferase (ALT/SGPT) 23, Alkaline Phosphatase 52, Total Protein 4.6, Albumin 2.5 12/07/21 05:58: White Blood Count 4.4, Red Blood Count 3.97, Hemoglobin 12.5, Hematocrit 35, Mean Corpuscular Volume 89, Mean Corpuscular Hemoglobin 32, Mean Corpuscular Hemoglobin Concent 35, Red Cell Distribution Width 12.4, Platelet Count 210, Mean Platelet Volume 9.0, Sodium Level 123, Potassium Level 4.4, Chloride Level 95, Carbon Dioxide Level 19, Anion Gap 9, Blood Urea Nitrogen 6, Creatinine 0.59, Estimat Glomerular Filtration Rate 93, BUN/Creatinine Ratio 10, Glucose Level 110, Calcium Level 7.9, Corrected Calcium 9.3, Total Bilirubin 0.6, Aspartate Amino Transf (AST/SGOT) 89, Alanine Aminotransferase (ALT/SGPT) 85, Alkaline Phosphatase 98, Total Protein 4.6, Albumin 2.3, Immature Granulocyte % (Auto) 1, Neutrophils (%) (Auto) 76, Lymphocytes (%) (Auto) 10, Monocytes (%) (Auto) 13, Eosinophils (%) (Auto) 0, Basophils (%) (Auto) 1, Neutrophils # (Auto) 3.3, Lymphocytes # (Auto) 0.4, Monocytes # (Auto) 0.6, Eosinophils # (Auto) 0.0, Basophils # (Auto) 0.0, Immature Granulocyte # (Auto) 0.1 12/08/21 06:00: White Blood Count 4.7, Red Blood Count 3.78, Hemoglobin 11.8, Hematocrit 34, Mean Corpuscular Volume 89, Mean Corpuscular Hemoglobin 31, Mean Corpuscular Hemoglobin Concent 35, Red Cell Distribution Width 12.6, Platelet Count 206, Mean Platelet Volume 9.1, Sodium Level 123, Potassium Level 4.5, Chloride Level 95, Carbon Dioxide Level 22, Anion Gap 6, Blood Urea Nitrogen 7, Creatinine 0.60, Estimat Glomerular Filtration Rate 93, BUN/Creatinine Ratio 12, Glucose Level 108, Calcium Level 7.7, Corrected Calcium 9.1, Total Bilirubin 0.4, Aspartate Amino Transf (AST/SGOT) 84, Alanine Aminotransferase (ALT/SGPT) 95, Alkaline Phosphatase 91, Total Protein 4.5, Albumin 2.2, Immature Granulocyte % (Auto) 2, Neutrophils (%) (Auto) 67, Lymphocytes (%) (Auto) 16, Monocytes (%) (Auto) 13, Eosinophils (%) (Auto) 1, Basophils (%) (Auto) 1, Neutrophils # (Auto) 3.1, Lymphocytes # (Auto) 0.7, Monocytes # (Auto) 0.6, Eosinophils # (Auto) 0.0, Basophils # (Auto) 0.0, Immature Granulocyte # (Auto) 0.1 Discharge Home Medications: Active Scripts Active Biotene Moisturizing Mouth (Saliva Stimulant Agents Comb.3) 1 Each [place] 0 Each MM NEEDED PRN prn Stool Softener-Laxative Tablet (Sennosides/Docusate Sodium) 8.6 Mg-50 Mg Tablet 1 Ea PO BID Sodium Chloride 1 Gram Tab 1 Gm PO BID Oxyir Tablet (Oxycodone HCl) 5 Mg Tab 5 Mg PO Q4H PRN Hydralazine HCl 25 Mg Tablet 25 Mg PO Q8H PRN Enoxaparin Sodium 40 Mg/0.4 Ml Syringe 40 Mg SC Q24H Tylenol Pm Ex-Strength Caplet (Acetaminophen/Diphenhydramine) 500 Mg-25 Mg Tablet 2 Each PO HS Aspirin EC (Aspirin) 81 Mg Tablet.dr 81 Mg PO HS ALPRAZolam 0.25 Mg Tablet 0.25 Mg PO Q6H PRN Pantoprazole Sodium 40 Mg Tablet.dr 40 Mg PO BIDAC LAST FILLED 08-02-2021 #60/30 DAY SUPPLY Hydralazine HCl 50 Mg Tablet 50 Mg PO 0600,1400,2200 Ondansetron Odt (Ondansetron) 8 Mg Tab.rapdis 8 Mg PO Q6H PRN Megestrol Acetate 40 Mg Tablet 40 Mg PO QID PRN Propranolol HCl 60 Mg Tablet 60 Mg PO BID Furosemide 20 Mg Tablet 20 Mg PO DAILY Reported Mucinex Dm ER 1,200-60 mg Tab (Guaifenesin/Dextromethorphan) 1,200 Mg-60 Mg Tbmp.12hr 1 Each PO Q12H Instructions to patient/family Please see electronic discharge instructions given to patient. MALIHA BENÍTEZ DO Dec 08, 2021 10:07
--- NOTE | 2021-12-08 11:17 | Progress Note ---
[facility] 12/08/21 1117: Progress Note Mr. Ravinder Garcia is a 86 y/o male with PMH CABG, CAD, HTN, HLD, GERD, BPH, Abd hernia, DM, Hx of HTN encephalopathy, and melanona who was admitted on 12/03/21 for weakness, fatigue, difficulty swallowing due to mucous, and weight loss. On admission he was found to be hyponatremic, and was eventually started on hypertonic saline which proved to have a minimal response. 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 He was started on NaCl 1g tablets twice daily. He has had decreased appetite ever since finishing Keytruda about 3 weeks ago. He eventually was able to tolerate a regular diet with thin liquids and we encouraged him to increase his oral intake. He was having bilateral lower extremity edema on presentation, and was given IV albumin to help prevent some of the 3rd spacing, and has had some improvement with his edema. He was encouraged to wear compression socks. Initially he was hypotensive on admission but eventually became hypertensive, and was started on Propanolol 40mg BID and hydralazine 25mg PO TID. He is stable and will be discharged to a senior care on 12/08/21. His overall prognosis is poor and will need to work on his oral intake for better nutrition. He should be maintained on a fluid restriction until he is able to follow up with Dr. Roberson as an outpatient. ANA BENÍTEZ DO 12/08/21 2011: Supervisory-Addendum Brief Verification & Attestation Participated in pt care: history, MDM, physical Personally performed: exam, history, MDM, supervision of care Care discussed with: Medical Student Procedures: n/a Results interpretation: Verified all documentation Verification and Attestation of Medical Student E/M Service A medical student performed and documented this service in my presence. I reviewed and verified all information documented by the medical student and made modifications to such information, when appropriate. I personally performed the physical exam and medical decision making. Ana Benítez Dec 08, 2021,20:11 [facility] Dec 08, 2021 11:17 ANA BENÍTEZ DO Dec 08, 2021 20:11
[2021-12-08 11:44] VITALS: BP 152/70
[2021-12-08 15:10] VITALS: BP 152/70
== END 2021-12-08 15:12 | DRG 645 ==
LOC: EDUNIT# 02:30 → ER 02:33 → ICU 03:35 → 4TH 12-06 14:04
PROVIDERS: ADMIT Family Medicine; ATTEND Family Medicine
DX: E22.2 Syndrome of inappropriate secretion of antidiuretic hormone (principal); I25.10 Atherosclerotic heart disease of native coronary artery without angina pectoris; E78.00 Pure hypercholesterolemia, unspecified; I10 Essential (primary) hypertension; F03.90 Unspecified dementia, unspecified severity, without behavioral disturbance, psychotic disturbance, mood disturbance, and anxiety; N40.0 Benign prostatic hyperplasia without lower urinary tract symptoms; K21.9 Gastro-esophageal reflux disease without esophagitis; E11.51 Type 2 diabetes mellitus with diabetic peripheral angiopathy without gangrene; F41.9 Anxiety disorder, unspecified; Z20.822 Contact with and (suspected) exposure to COVID-19; E83.42 Hypomagnesemia; I95.9 Hypotension, unspecified; R53.81 Other malaise; R26.9 Unspecified abnormalities of gait and mobility; R13.10 Dysphagia, unspecified; Z79.82 Long term (current) use of aspirin; Z79.84 Long term (current) use of oral hypoglycemic drugs; Z79.899 Other long term (current) drug therapy; R05.9 Cough, unspecified; R60.0 Localized edema; R53.1 Weakness; Z85.820 Personal history of malignant melanoma of skin; Z92.21 Personal history of antineoplastic chemotherapy; Z86.73 Personal history of transient ischemic attack (TIA), and cerebral infarction without residual deficits; Z74.01 Bed confinement status; Z87.891 Personal history of nicotine dependence; Z95.1 Presence of aortocoronary bypass graft; Z66 Do not resuscitate
CPT/HCPCS: 36415; 51702; 71045; 80048; 80053; 81000; 82150; 82436; 82533; 82550; 82553; 83690; 83735; 83874; 83880; 84100; 84133; 84300; 84439; 84443; 84484; 85025; 85027; 85610; 85730; 87636; 93005; 93041

== ENCOUNTER 2022-01-02 15:32 | Observation (INO) | payer MEDICARE, BC ==
[~2022-01-02] VITALS: Ht 183 cm; Wt 85.4 kg
[~2022-01-02 15:32] MED LIST changes: +ACHD5005 PO; +ALPR0.254 PO; +DOCU100C37 PO; +ENOX40DI8 SC; +GUAI1TBM19 PO; +MEGE40TA5 PO; +NF-NACL1GT PO; +ONDA8TAB13 PO; +OXC5T PO; +POTA10TA PO; +PROP60TA17 PO; +SALI45SP MM; +UBID100C17 PO
--- NOTE | 2022-01-02 16:25 | ED GI ---
General Chief Complaint: Abdominal/GI Problems Stated Complaint: CONSTIPATION/COUGH Nursing Triage Note: PT TO 2 VIA WC W REPORTS OF CONSTIPATION X5 DAYS. PT HAD UNRESPONSIVE EVENT IN WAITING WHERE HE WAS NOT RESPONDING TO QUESTIONS OR PAINFUL STIMULI INITIATED BY FAMILY. PT AWAKE AND ALERT UPON ARRIVAL TO AFTER REGISRATION STAFF INFORMED RN'S OF PT CHANGE IN CONDITION. PT CURRENTLY TAKING KEYTRUDA FOR MELANOMA. Source of Information: Patient, Family (daughter) Exam Limitations: No Limitations History of Present Illness Date Seen by Provider: Jan 02, 2022 Time Seen by Provider: 16:10 Initial Comments Patient is an 86-year-old male with a history of coronary artery disease, holli anoma who presents to the emergency department with a chief complaint of constipation for the last 5 or 6 days. He has had absolutely no bowel movement until today when he passed a very small amount after a suppository and part of enema. Patient has been on daily stool softeners twice daily. He has been off of his MiraLAX for the last 6 days he states because his was tired of cleaning him up, she "cut me off". He states he has had a fairly decent appetite for the last couple of days but prior to that not eating and drinking much. He denies nausea. No shortness of breath. His daughter is at the bedside and provides some of the history. She states his urine looks quite "brown". He is on Keytruda. Primary care provider is Valentina Forrester. Daughter reports that she was sitting across from him in the waiting room just prior to coming in to the department and he had a period of unresponsiveness. He states that he had some grunting type respirations. By the time he was brought into a bed in the ER he was awake alert and oriented and really had no recollection of the episode. Denies any other complaints of recent illness or injury. All other review of systems reviewed and negative except as stated. Timing/Duration: 5-6 Days Associated Symptoms: Weakness, Other (constipation) Allergies and Home Medications Allergies Coded Allergies: hydrocodone (Unverified Allergy, Mild, 03/22/07) amlodipine (Unverified Allergy, Unknown, 10/25/13) benazepril (Unverified Allergy, Unknown, 10/25/13) carbidopa (Unverified Allergy, Unknown, 05/18/21) codeine (Verified Allergy, Unknown, 09/02/05) levodopa (Unverified Allergy, Unknown, 05/18/21) telmisartan (Unverified Allergy, Unknown, 10/25/13) Patient Home Medication List Home Medication List Reviewed: Yes ALPRAZolam (ALPRAZolam) 0.25 Mg Tablet, 0.25 MG PO Q6H PRN for ANXIETY Prescribed by: MALIHA BENÍTEZ on 12/08/21 1005 Acetaminophen/Diphenhydramine (Tylenol Pm Ex-Strength Caplet) 500 Mg-25 Mg Tablet, 2 EACH PO HS Prescribed by: MALIHA BENÍTEZ on 12/08/21 1004 Aspirin (Aspirin EC) 81 Mg Tablet.dr, 81 MG PO HS Prescribed by: MALIHA BENÍTEZ on 12/08/21 1004 Enoxaparin Sodium (Enoxaparin Sodium) 40 Mg/0.4 Ml Syringe, 40 MG SC Q24H Prescribed by: MALIHA BENÍTEZ on 12/08/21 1004 Furosemide (Furosemide) 20 Mg Tablet, 20 MG PO DAILY Prescribed by: MALIHA BENÍTEZ on 12/08/21 1004 Guaifenesin/Dextromethorphan (Mucinex Dm ER 1,200-60 mg Tab) 1,200 Mg-60 Mg Tbmp.12hr, 1 EACH PO Q12H, (Reported) Entered as Reported by: FRANSISCA CAMEJO on 12/03/21 1036 Hydralazine HCl (Hydralazine HCl) 50 Mg Tablet, 50 MG PO 0600,1400,2200 Prescribed by: MALIHA BENÍTEZ on 12/08/21 1004 Hydralazine HCl (Hydralazine HCl) 25 Mg Tablet, 25 MG PO Q8H PRN for hypertension Prescribed by: MALIHA BENÍTEZ on 12/08/21 1004 Megestrol Acetate (Megestrol Acetate) 40 Mg Tablet, 40 MG PO QID PRN for APPETITE STIMULATION Prescribed by: MALIHA BENÍTEZ on 12/08/21 1004 Ondansetron (Ondansetron Odt) 8 Mg Tab.rapdis, 8 MG PO Q6H PRN for NAUSEA/VOMITING-1ST LINE Prescribed by: MALIHA BENÍTEZ on 12/08/21 1004 Oxycodone Hcl (Oxyir Tablet) 5 Mg Tab, 5 MG PO Q4H PRN for PAIN-SEVERE (8-10) Prescribed by: MALIHA BENÍTEZ on 12/08/211004 Pantoprazole Sodium (Pantoprazole Sodium) 40 Mg Tablet.dr, 40 MG PO BIDAC Prescribed by: MALIHA BENÍTEZ on 12/08/211003 Propranolol HCl (Propranolol HCl) 60 Mg Tablet, 60 MG PO BID Prescribed by: MALIHA BENÍTEZ on 12/08/211003 Saliva Stimulant Agents Comb.3 (Biotene Moisturizing Mouth) 1 Each [place], 0 EACH MM NEEDED PRN for DRY MOUTH Prescribed by: MALIHA BENÍTEZ on 12/08/211003 Sennosides/Docusate Sodium (Stool Softener-Laxative Tablet) 8.6 Mg-50 Mg Tablet, 1 EA PO BID Prescribed by: MALIHA BENÍTEZ on 12/08/211003 Sodium Chloride (Sodium Chloride) 1 Gram Tab, 1 GM PO BID Prescribed by: MALIHA BENÍTEZ on 12/08/211003 Review of Systems Review of Systems Constitutional: see HPI EENTM: No Symptoms Reported Respiratory: No Symptoms Reported Cardiovascular: No Symptoms Reported Gastrointestinal: Constipated (no BM 5-6d) Genitourinary: Other ("brown urine") Musculoskeletal: no symptoms reported Skin: no symptoms reported Psychiatric/Neurological: No Symptoms Reported All Other Systems Reviewed Negative Unless Noted: Yes Past Edwfxiz-Uhqwcn-Zxpqbd Hx Patient Social History Tobacco Use?: No Smoking Status: Former Smoker Use of E-Cig and/or Vaping dev: No Substance use?: No Alcohol Use?: No Immunizations Up To Date First/Initial COVID19 Vaccinat: FEB 2020 Second COVID19 Vaccination Jose: APRIL 2020 Third COVID19 Vaccination Date: NOV 2020 COVID19 Vaccine Business Representative: MODERNNaty Seasonal Allergies Seasonal Allergies: No Past Medical History Surgery/Hospitalization HX: melanoma, hernia x3, bilat cea, turp, ortho, niddm, htn, high lipids, TIA, DELERIUM, GERD, CAD, PARKINSONS, ANXIETY, PVD CABG Surgeries: Yes (MENISCUS REPAIR, TURP, HERNIA X3, bilateral ENDARTERECTOMY,2005) Abdominal, Cardiac, CABG, Orthopedic, Transurethral Resection, Vascular Surgery Respiratory: No Currently Using CPAP: No Currently Using BIPAP: No Cardiac: Yes (CABG X3 VESSELS;BILAT CAROTID ENDARTERECTOMY; RBBB) Chronic Edema/Swelling, Coronary Artery Disease, High Cholesterol, Hypertension, Peripheral Vascular Neurological: Yes (HYPERTENSIVE ENCEPHALOPATHY, ESSENTIAL TREMORS UPPER EXTREMITIES) Dementia, TIA Reproductive Disorders: No Sexually Transmitted Disease: No Genitourinary: Yes Benign Prostatic Hyperpl, Prostate Problems Gastrointestinal: Yes Abdominal Hernia, Gastroesophageal Reflux, Chronic Constipation Musculoskeletal: Yes (KNEE SURGERY; GENERALIZED WEAKNESS; FALLS; ) Arthritis Endocrine: Yes Diabetes, Non-Insulin dep HEENT: Yes Hearing Impairment: Hard of Hearing, Hearing Aide Right Cancer: Yes Skin, Melanoma Did You Recieve Any Treatments: Yes What Type of Treatment Did You: Chemotherapy, Surgical Intervention Psychosocial: Yes Sleep Difficulties, Anxiety Integumentary: Yes (MELANOMA ON BACK) Blood Disorders: No Family Medical History Heart Disease, Hypertension SOCIAL HISTORY: -NO SMOKING -RARE ALCOHOL USE -NO DRUG USE PAST SURGICAL HISTORY: -HERNIA REPAIR X 3 -TURP -KNEE SURGERY FOR TORN MENISCUS -BILATERAL CAROTID ENDARTERECTOMY 2005 -3-VESSEL CABG -REMOVAL OF MELANOMA OF BACK WITH LYMPH NODE BIOPSY RIGHT AXILLA 04/2021 -PORT RIGHT CHEST 04/2021 ADDITONAL PMH: -MULTIPLE EPISODES OF 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 -FREQUENT EPISODES OF DELIRIUM/INCREASED CONFUSION, HALLUCINATIONS, SPEECH ABNORMALITIES -MULTIFACTORIAL DUE TO DEMENTIA AND "SUNDOWNER'S", PARKINSON'S, HYPERTENSIVE ENCEPHALOPATHY -HAS HAD PROGRESSIVE GENERALIZED WEAKNESS AND INABILTIY TO DO ADL'S INCLUDING BEING UNABLE TO FEED HIMSELF Physical Exam Vital Signs Vital Signs - First Documented 01/02/22 15:48 Temp 36.4 Pulse 80 Resp 18 B/P (MAP) 179/99 (125) Pulse Ox 95 O2 Delivery Room Air Capillary Refill : Less Than 3 Seconds Height/Weight/BMI Height: 6'0.00" Weight: 230lbs. 0.0oz. [id number]; 28.00 BMI Method: General Appearance: WD/WN HEENT: PERRL/EOMI, other (dry oral mucosa) Neck: normal inspection Respiratory: lungs clear, normal breath sounds, no respiratory distress, no accessory muscle use Cardiovascular: regular rate, rhythm Gastrointestinal: normal bowel sounds, non tender, soft Genital/Rectal: other (Very large amount of impacted stool palpable in the rectal vault. No blood. No external hemorrhoids; painful rectal exam for the patient) Extremities: normal range of motion, non-tender, normal inspection Neurologic/Psychiatric: alert, normal mood/affect, oriented x 3, other (flat affect; poor eye contact. answers questions appropriately) Skin: normal color, warm/dry Progress/Results/Core Measures Results/Orders Lab Results Laboratory Tests Test 01/02/22 15:55 01/02/22 16:20 Range/Units White Blood Count 8.9 4.3-11.0 10^3/uL Red Blood Count 4.50 4.30-5.52 10^6/uL Hemoglobin 13.9 13.3-17.7 g/dL Hematocrit 40 40-54 % Mean Corpuscular Volume 89 80-99 fL Mean Corpuscular Hemoglobin 31 25-34 pg Mean Corpuscular Hemoglobin Concent 35 32-36 g/dL Red Cell Distribution Width 14.1 10.0-14.5 % Platelet Count 388 130-400 10^3/uL Mean Platelet Volume 9.5 9.0-12.2 fL Immature Granulocyte % (Auto) 2 % Neutrophils (%) (Auto) 62 42-75 % Lymphocytes (%) (Auto) 24 12-44 % Monocytes (%) (Auto) 11 0-12 % Eosinophils (%) (Auto) 0 0-10 % Basophils (%) (Auto) 1 0-10 % Neutrophils # (Auto) 5.5 1.8-7.8 10^3/uL Lymphocytes # (Auto) 2.2 1.0-4.0 10^3/uL Monocytes # (Auto) 1.0 0.0-1.0 10^3/uL Eosinophils # (Auto) 0.0 0.0-0.3 10^3/uL Basophils # (Auto) 0.1 0.0-0.1 10^3/uL Immature Granulocyte # (Auto) 0.1 0.0-0.1 10^3/uL Sodium Level 126 L 135-145 MMOL/L Potassium Level 4.5 3.6-5.0 MMOL/L Chloride Level 95 L 98-107 MMOL/L Carbon Dioxide Level 19 L 21-32 MMOL/L Anion Gap 12 5-14 MMOL/L Blood Urea Nitrogen 10 7-18 MG/DL Creatinine 0.79 0.60-1.30 MG/DL Estimat Glomerular Filtration Rate 85 BUN/Creatinine Ratio 13 Glucose Level 149 H 70-105 MG/DL Calcium Level 8.8 8.5-10.1 MG/DL Corrected Calcium 9.7 8.5-10.1 MG/DL Total Bilirubin 0.8 0.1-1.0 MG/DL Aspartate Amino Transf (AST/SGOT) 26 5-34 U/L Alanine Aminotransferase (ALT/SGPT) 43 0-55 U/L Alkaline Phosphatase 152 H 40-136 U/L Total Protein 5.9 L 6.4-8.2 GM/DL Albumin 2.9 L 3.2-4.5 GM/DL Glucometer 154 H 70-110 MG/DL My Orders Orders - RAJ HENRY MD Ekg Tracing (01/02/22 15:56) Ed Iv/Invasive Line Start (01/02/22 16:20) Cbc With Automated Diff (01/02/22 16:20) Comprehensive Metabolic Panel (01/02/22 16:20) Ua Culture If Indicated (01/02/22 16:20) Ns Iv 1000 Ml (Sodium Chloride 0.9%) (01/02/22 16:30) Vital Signs/I&O 01/02/22 15:48 Temp 36.4 Pulse 80 Resp 18 B/P (MAP) 179/99 (125) Pulse Ox 95 O2 Delivery Room Air Blood Pressure Mean: 125 Progress Progress Note : Time: 18:00 Progress Note Patient seen and examined, 86-year-old with a chief complaint of constipation for 6 days. Evaluation today includes physical exam, basic laboratory studies. He was unable to provide a urine sample as he wears a brief and went prior to the nurse being able to obtain a sample. He was treated with 1 L of normal saline here in the department. Vital signs are stable. Mentating normally. No focal neurologic deficits. No clinical or objective findings concerning for sepsis, bowel obstruction, intra-abdominal infection. He has been off of his MiraLAX but using stool softeners and Dulcolax suppositories. Physical exam was remarkable for very large hard impacted stool in the rectal vault. A little bit was able to be manually removed. Due to his generalized debility and weakness I spoke with Dr. Gómez who accepted the patient for admission for IV fluids and enemas till clear. Findings and plan of care discussed with the family, dimitrios lalito who is at the bedside. She is agreeable. She would like a manager social services consult to assist with potentially finding placement for him in a prison. volunteer services assistant consult was placed on the chart. At this time the patient is requesting to be a full code. Departure Communication (Admissions) Time/Spoke to Admitting Phy: 17:[address] Gómez, recommends IV fluids, enemas till clear Impression Primary Impression: Constipation Qualified Codes: K59.00 - Constipation, unspecified Additional Impressions: Fecal impaction in rectum Generalized weakness Melanoma Qualified Codes: C43.9 - Malignant melanoma of skin, unspecified Disposition: ADMITTED INPATIENT Condition: Stable Admissions Decision to Admit Reason: Admit from ER (General) Decision to Admit/Date: Jan 02, 2022 Time/Decision to Admit Time: 18:00 Departure-Patient Inst. Referrals: [facility] [place] (PCP/Family) Primary Care Physician RAJ HENRY MD Jan 02, 2022 16:25
[2022-01-02 16:26] LABS: BASOPHILS # (AUTO) 0.1 10^3/uL (0.0-0.1); BASOPHILS % (AUTO) 1 % (0-10); EOSINOPHILS % (AUTO) 0 % (0-10); HEMATOCRIT 40 % (40-54); HEMOGLOBIN 13.9 g/dL (13.3-17.7); LYMPHOCYTES # (AUTO) 2.2 10^3/uL (1.0-4.0); LYMPHOCYTES % (AUTO) 24 % (12-44); MEAN CORPUSCULAR HEMOGLOBIN 31 pg (25-34); MEAN CORPUSCULAR HGB CONC 35 g/dL (32-36); MEAN CORPUSCULAR VOLUME 89 fL (80-99); MEAN PLATELET VOLUME 9.5 fL (9.0-12.2); MONOCYTES % (AUTO) 11 % (0-12); NEUTROPHILS # (AUTO) 5.5 10^3/uL (1.8-7.8); NEUTROPHILS % (AUTO) 62 % (42-75); PLATELET COUNT 388 10^3/uL (130-400); WHITE BLOOD COUNT 8.9 10^3/uL (4.3-11.0)
[2022-01-02] MEDS ORDERED: NS IV 1000 ML 1,000 ML IV SCH (16:30)
[2022-01-02 16:31] LABS: ALBUMIN 2.9 GM/DL (3.2-4.5); POTASSIUM 4.5 MMOL/L (3.6-5.0)
[2022-01-02 16:32] LABS: CALCIUM 8.8 MG/DL (8.5-10.1)
[2022-01-02 16:33] LABS: TOTAL PROTEIN 5.9 GM/DL (6.4-8.2)
[2022-01-02 16:35] LABS: BILIRUBIN,TOTAL 0.8 MG/DL (0.1-1.0)
[2022-01-02 16:37] LABS: CREATININE SERUM 0.79 MG/DL (0.60-1.30)
[2022-01-02 19:22] LABS: BILIRUBIN,URINE NEGATIVE (NEGATIVE); CLARITY,URINE CLEAR; COLOR,URINE YELLOW; GLUCOSE, URINE (UA) NEGATIVE (NEGATIVE); KETONES,URINE NEGATIVE (NEGATIVE); LEUKOCYTE ESTERASE ,URINE NEGATIVE (NEGATIVE); NITRITE,URINE NEGATIVE (NEGATIVE); PROTEIN,URINE NEGATIVE (NEGATIVE)
[2022-01-02 19:30] VITALS: BP 131/80
[2022-01-02 19:30] LABS: BACTERIA,URINE TRACE /HPF; RBC,URINE 0-2 /HPF; WBC,URINE 0-2 /HPF
[2022-01-02 21:35] VITALS: BP 119/75
[2022-01-02] MEDS: DOCUSATE SODIUM 100 MG (COLACE) CAP PO SCH (21:43)
[2022-01-02] MEDS: NS IV 1000 ML 1,000 ML IV SCH (21:43)
[2022-01-02] MEDS: polyethylene glycoL POWDER 17 GM (MIRALAX) PACK PO SCH (21:43)
[2022-01-02] MEDS ORDERED: RT-ALBUTEROL SULF 2.5 MG/3 ML PRE-MIX VIAL INH PRN (21:45)
[2022-01-02] MEDS: ENOXAPARIN 40 MG/0.4 ML (LOVENOX) SYR SC SCH (21:47)
[2022-01-02 23:03] VITALS: BP 149/73
[2022-01-03 03:13] VITALS: BP 150/72
[2022-01-03] MEDS: NS IV 1000 ML 1,000 ML IV SCH ×3 (05:37→19:59)
[2022-01-03 06:22] LABS: CALCIUM 8.1 MG/DL (8.5-10.1); CREATININE SERUM 0.61 MG/DL (0.60-1.30); POTASSIUM 4.5 MMOL/L (3.6-5.0)
[2022-01-03] MEDS: ACETAMINOPHEN 500 MG TAB (TYLENOL) PO PRN ×2 (06:31→23:16)
[2022-01-03 07:16] VITALS: BP 179/86
[2022-01-03 08:04] VITALS: BP 164/81
[2022-01-03] MEDS: DOCUSATE SODIUM 100 MG (COLACE) CAP PO SCH ×2 (08:56→19:58)
[2022-01-03] MEDS: polyethylene glycoL POWDER 17 GM (MIRALAX) PACK PO SCH ×2 (08:56→19:58)
[2022-01-03 11:26] VITALS: BP 154/76
--- NOTE | 2022-01-03 11:59 | History & Physical ---
RIVAS MARQUEZ 01/03/22 1159: HPI History of Present Illness: Ravinder Garcia is a 86 yo male who was admitted to inpatient floor on 01/02/22 for constipation. The patient was noted to have significant constipation for the past week since discharge from prison. He notes he has dealt with constipation for some time now, but was managing it at home with Miralax until around 4-6 weeks ago when his "cut off" his Miralax because she no longer wanted to help clean him for daily stools. He has had progressively worsening constipation, worst the day he decided to present to the emergency department. In the emergency department, the patient was diagnosed with constipation clinically, with no imaging performed. VS were stable with the exception of elevated BP, most recently at 154/76. CBC at 1555 was WNL. CMP at 1555 was notable for Na 126 (L), Cl 95 (L), CO2 19 (L), Glucose 149 (H), Calcium 8.8 (WNL), Alk Phos 152 (H), Total Protein 5.9 (L), Albumin 2.9 (L); repeat CMP at 0543 showed Na steady at 126, improved chloride and glucose at 99, 105 respectively. CO2 dropped further to 18, and calcium fell abnormal level of 8.1. UA at 1917 was significant for 2-5 hyaline casts and moderate urine mucus. Today, the patient indicates his symptoms have improved after nursing administered multiple enemas, alongside Miralax and Colace. He recalls passing o ne large stool, though he states the nurse told him he actually passed two stools. He denies any abdominal pain, nausea, or vomiting. The patient endorses intermittent low back pain that he associates with lying in the gurney overnight; he indicates this resolves completely with Tylenol. The patient notes he has a history of bilateral hand tremor, left greater than right, which has previously been diagnosed as first essential tremor, and then Parkinson's disease. He also has years of worsening difficulty ambulating secondary to bilateral leg weakness and gait instability, notably worsened after he suffered a fall onto his low back and buttocks around 6 weeks ago. He was treated with levodopa and carbidopa for these symptoms but had adverse reactions to them and ceased taking them; he is not taking any medications for his tremors or gait instability at this time. The patient indicates he does believe he would benefit from staying at an assisted living facility with PT. He has previously stayed at the [facility] living but only received 3 total sessions of PT over a 2 week span. The patient endorses a history of melanoma on his back, metastatic to his lymph nodes, as diagnosed by PET scan. He follows oncology regarding his melanoma. Source: patient, family, old records Date seen by provider: Jan 03, 2022 Time Seen by Provider: 08:30 Attending Physician [place] PCP Admitting Physician: Aleksander Gómez MD Attending Physician: Mirtha De MD Consult Date of Admission Jan 02, 2022 at 19:46 Home Medications Home Medications Reviewed patient Home Medication Reconciliation performed by pharmacy medication reconciliations seed technician and/or nursing. Patients Allergies have been reviewed. Allergies Coded Allergies: hydrocodone (Unverified Allergy, Mild, 03/22/07) amlodipine (Unverified Allergy, Unknown, 10/25/13) benazepril (Unverified Allergy, Unknown, 10/25/13) carbidopa (Unverified Allergy, Unknown, 05/18/21) codeine (Verified Allergy, Unknown, 09/02/05) levodopa (Unverified Allergy, Unknown, 05/18/21) telmisartan (Unverified Allergy, Unknown, 10/25/13) [facility]F-Mbxovo-[facility]pg[facility] Hx Patient Social History Marrital Status: Smoking Status: Former Smoker 2nd Hand Smoke Exposure: No Recent Hopitalizations: Yes (FOR UNCONTROLLED HTN) Alcohol Use?: No Tobacco type used: Cigarettes Have you traveled recently?: No Immunizations Up To Date Influenza Vaccine Up-to-Date: Yes; Up-to-Date First/Initial COVID19 Vaccinat: FEB 2020 Second COVID19 Vaccination Jose: APRIL 2020 Third COVID19 Vaccination Date: NOV 2020 COVID19 Vaccine Fruit Shipper: MODERNA Family Medical History Significant Family History: Heart Disease, Hypertension Other Significan Family Hx: SOCIAL HISTORY: -NO SMOKING -RARE ALCOHOL USE -NO DRUG USE PAST SURGICAL HISTORY: -HERNIA REPAIR X 3 -TURP -KNEE SURGERY FOR TORN MENISCUS -BILATERAL CAROTID ENDARTERECTOMY 2005 -3-VESSEL CABG -REMOVAL OF MELANOMA OF BACK WITH LYMPH NODE BIOPSY RIGHT AXILLA 04/2021 -PORT RIGHT CHEST 04/2021 ADDITONAL PMH: -MULTIPLE EPISODES OF 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 -FREQUENT EPISODES OF DELIRIUM/INCREASED CONFUSION, HALLUCINATIONS, SPEECH ABNORMALITIES -MULTIFACTORIAL DUE TO DEMENTIA AND "SUNDOWNER'S", PARKINSON'S, HYPERTENSIVE ENCEPHALOPATHY -HAS HAD PROGRESSIVE GENERALIZED WEAKNESS AND INABILTIY TO DO ADL'S INCLUDING BEING UNABLE TO FEED HIMSELF Review of Systems ([facility]) Constitutional: see HPI; No chills, No fever Respiratory: cough Cardiovascular: No chest pain Gastrointestinal: No abdominal pain; constipation; No diarrhea Genitourinary: no symptoms reported Musculoskeletal: no symptoms reported Skin: hx of skin cancer Psychiatric/Neurological: Tremors, Weakness Reviewed Test Results Reviewed Test Results Lab Laboratory Tests 01/02/22 15:55: Sodium Level 126L, Chloride Level 95L, Carbon Dioxide Level 19L, Glucose Level 149H, Alkaline Phosphatase 152H, Total Protein 5.9L, Albumin 2.9L 01/02/22 16:20: Glucometer 154H 01/02/22 19:17: Urine Hyaline Casts 2-5H, Urine Mucus MODERATEH 01/03/22 05:43: Sodium Level 126L, Carbon Dioxide Level 18L, Calcium Level 8.1L Physical Exam-([facility]) Physical Exam Vital Signs VS - Last 72 Hours, by Label 01/02/22 01/02/22 01/02/22 01/02/22 15:48 18:12 19:30 19:30 Temp 36.4 36.2 Pulse 80 89 94 Resp 18 14 20 B/P (MAP) 179/99 (125) 119/75 131/80 (97) Pulse Ox 95 96 95 96 O2 Delivery Room Air Room Air Room Air Room Air 01/02/22 01/02/22 01/03/22 01/03/22 21:35 23:03 03:13 07:16 Temp 36.4 36.6 36.6 36.4 Pulse 80 83 65 76 Resp 18 20 18 B/P (MAP) 149/73 (98) 150/72 (98) 179/86 (117) Pulse Ox 96 96 99 99 O2 Delivery Room Air Room Air Room Air FiO2 21 01/03/22 01/03/22 01/03/22 01/03/22 08:00 08:04 08:53 11:26 Temp 36.3 Pulse 59 74 Resp 18 18 B/P (MAP) 164/81 (108) 154/76 (102) Pulse Ox 96 96 96 97 O2 Delivery Room Air Room Air Room Air O2 Flow Rate 0.00 0.00 Capillary Refill : Less Than 3 Seconds General Appearance: mild distress Neck: non-tender, supple; No lymphadenopathy (R), No lymphadenopathy (L) Respiratory: lungs clear, normal breath sounds, other (cough after multiple deep respirations) Cardiovascular: normal peripheral pulses, regular rate, rhythm, no edema, no gallop, no JVD Peripheral Pulses: 2+ Dorsalis Pedis (R), 2+ Left Dors-Pedis (L), 2+ Radial Pulses (R), 2+ Radial Pulses (L) Gastrointestinal: normal bowel sounds, non tender, soft, no pulsatile mass, mass (hard, 5 cm mass at the epigastrium underlying patient's previous surgical scar) Neurologic/Psychiatric: other (mild tremors to bilateral hands at rest) Assessment/Plan Assessment/Plan Admission Status: Inpatient Order (span 2 midnights) Reason for Inpatient Admission: Constipation (1) Constipation Onset Date: ~ 12/28/2021 Status: Acute Assessment & Plan: Cleared up with enema, Miralax, Colace here. Continue Miralax at home. Qualifiers: Qualified Codes: K59.00 - Constipation, unspecified (2) Parkinson disease Status: Chronic Assessment & Plan: We are seeking referral to assisted living with PT, patient is agreeable to this plan. (3) HTN (hypertension) Status: Chronic Assessment & Plan: Continue taking hydralazine, propranolol, furosemide. (4) HLD (hyperlipidemia) Status: Chronic Assessment & Plan: Follow up with PCP (5) Gait instability Status: Chronic Assessment & Plan: We are seeking referral to assisted living with PT, patient is agreeable to this plan. 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 MIRTHA DE MD 01/03/22 1623: Home Medications Allergies Coded Allergies: hydrocodone (Unverified Allergy, Mild, 03/22/07) amlodipine (Unverified Allergy, Unknown, 10/25/13) benazepril (Unverified Allergy, Unknown, 10/25/13) carbidopa (Unverified Allergy, Unknown, 05/18/21) codeine (Verified Allergy, Unknown, 09/02/05) levodopa (Unverified Allergy, Unknown, 05/18/21) telmisartan (Unverified Allergy, Unknown, 10/25/13) Supervisory-Addendum Brief Verification & Attestation Participated in pt care: history, MDM, physical Personally performed: exam, history, MDM, supervision of care Care discussed with: Medical Student Procedures: n/a I personally saw and examined patient and repeated my own history and physical exam which confirmed the findings documented by the medical student. I directed the plan of care as documented. Looking at prison placement, not assisted living. RIVAS MARQUEZ Jan 03, 2022 11:59 MIRTHA DE MD Jan 03, 2022 16:23
--- NOTE | 2022-01-03 13:45 | Occupational Therapy Eval ---
OT Evaluation-General/PLF Medical Diagnosis Admission Date Jan 02, 2022 at 19:46 Medical Diagnosis: Constipation, Fecal impaction Onset Date: Jan 02, 2022 Therapy Diagnosis Therapy Diagnosis: Reduced ADL status Height/Weight Height (Feet): 6 Height (Inches): 0.00 Weight (Pounds): 230 Weight (Ounces): 0.0 Precautions Precautions/Isolations: Fall Prevention, Standard Precautions Referral Physician: Dalia Referral Reason: Evaluation/Treatment Medical History Pertinent Medical History: CABG, CAD, DM, Dementia, Parkinson's, PVD Current History Pt came to hospital with constipation and fecal impaction. He lives in a home with his . His completes all ADLs/IADLs for him. He stated that he really can't do much and that he is very weak. He stated that he does have a walker but is only able to take a few steps. He has a bedside commode and doesn't stray far from his chair, or bed. He reported that his fell this weekend and that she hit her head. He stated he does not know what they will do because she can't take care of him anymore. He said they have been looking into a nursing facility. Reviewed History: Yes Social History Home: Single Level Current Living Status: Spouse Entry Into Home: Stairs With Railing Steps Into Home: 2 ADL-Prior Level of Function SCALE: Activities may be completed with or without assistive devices. 8-Mdgusrudfi-mrqdcxh completes the activity by him/herself with no assistance from a helper. 5-Set-up or Clean-up Assistance-helper sets up or cleans up; patient completes activity. [place] assists only prior to or following the activity. 4-Supervision or Touching Assistance-helper provides verbal cues and/or touching/steadying and/or contact guard assistance as patient completes activity. Assistance may be provided throughout the activity or intermittently. 3-Partial/Moderate Assistance-helper does LESS THAN HALF the effort. [place] lifts, holds or supports trunk or limbs, but provides less than half the effort. 2-Substantial/Maximal Assistance-helper does MORE THAN HALF the effort. [place] lifts or holds trunk or limbs and provides more than half the effort. 5-Eaixbnbof-dbawpr does ALL the effort. Patient does none of the effort to complete the activity. Or, the assistance of 2 or more helpers is required for the patient to complete the activity. If activity was not attempted, code reason: 7-Patient Refused. 9-Not Applicable-not attempted and the patient did not perform the activity before the current illness, exacerbation or injury. 10-Not Attempted due to Environmental Limitations-(lack of equipment, weather restraints, etc.). 88-Not Attempted due to Medical Conditions or Safety Concerns. Self Care: Dependent Functional Cognition: Needed Some Help DME/Equipment: Bath Bench, Bedside Commode, Tub/Shower Drive Self: No OT Current Status Subjective Pt laying in bed on bed gardner upon arrival. He agreed to therapy eval while he finished going to the bathroom. Appearance Pt was left sitting up in recliner with all needs within reach. Mental Status/Objective Patient Orientation: Person, Place, Situation Attachments: IV Current Glasses/Contacts: Yes Hearing Aids: Yes Upper Extremity ROM ~165 degrees at shoulders Upper Extremity Strength Specialized Developer strength: moderately impaired ADL-Treatment Eating (QC): 2 (needed assist to hold/drink water) Lower Body Dressing (QC): 1 On/Off Footwear (QC): 1 Toileting Hygiene (QC): 1 Pt was on bedpan upon arrival. Nursing reported that he was bed bound, and that is why they didn't try to move to a commode/bathroom. Pt was dependent for toileting hygiene. Pt required mod-max assist x2 for supine<>sit. Pt required min tactile cues for balance to stay upright and seated EOB. Mod assist from elevated bed for sit<>stand. Pt able to ambulate ~4 ft to recliner. Cues for hand placement when sitting, without follow through. Although pt is max assist with all ADLs at home, pt would benefit from skilled OT services to improve his overall strength and endurance and potentially provide family training and home modifications in order to reduce burden of care on family/spouse. Education OT Patient Education: Correct positioning, Modified ADL techniques, Progress toward Goal/Update tx plan, Rehab process, Safety issues, Transfer techniques Teaching Recipient: Patient Teaching Methods: Discussion Response to Teaching: Verbalize Understanding, Return Demonstration, Reinforcement Needed OT Manager Culture Goals Manager Culture Goals Time Frame: Jan 21, 2022 Eating (QC): 3 Oral Hygiene (QC): 3 Upper Body Dressing (QC): 3 Additional Goals: 1-Demonstrate ADL Tasks, 2-Verbalize Understanding, 3- ImproveStrength/Kortney 1=Demonstrate adherence to instructed precautions during ADL tasks. 2=Patient will verbalize/demonstrate understanding of assistive devices/modifications for ADL. 3=Patient will improve strength/tolerance for activity to enable patient to perform ADL's. OT Education/Plan Problem List/Assessment Assessment: Decreased Activ Tolerance, Decreased Safety Aware, Decreased UE Strength, Dependent Transfers, Impaired Bed Mobility, Impaired Cognition, Impaired Coordination, Impaired Funct Balance, Impaired I ADL's, Impaired Self- Care Skills Discharge Recommendations Plan/Recommendations: Continue POC Therapy Discharge Recommendati: Assisted Living, Bath Aide Comment At this time, per pt report of home life/environment, pt would be unsafe to return home with assist from . Treatment Plan/Plan of Care Treatment,Training & Education: Yes Patient would benefit from OT for education, treatment and training to promote independence in ADL's, mobility, safety and/or upper extremity function for ADL's. Plan of Care: ADL Retraining, Caregiver Training, Functional Mobility, Group Exercise/Act as Ind, UE Funct Exercise/Act Treatment Duration: Jan 21, 2022 Frequency: 3 times per week (3-5x/week) Estimated Hrs Per Day: .25 hour per day Agreement: Yes Rehab Potential: Fair Time Start Time: 13:17 Stop Time: 13:36 DATE: Jan 03, 2022 Total Time Billed (hr/min): 19 Billed Treatment Time 1 visit Cece Petty OT Jan 03, 2022 13:45
--- NOTE | 2022-01-03 14:14 | Physical Therapy Evaluation ---
PT Evaluation-General Medical Diagnosis Admission Date Jan 02, 2022 at 19:46 Medical Diagnosis: Constipation, Fecal impaction Onset Date: Jan 02, 2022 Therapy Diagnosis Therapy Diagnosis: impaired mobility Height/Weight Height (Feet): 6 Height (Inches): 0.00 Weight (Pounds): 230 Weight (Ounces): 0.0 Precautions Precautions/Isolations: Fall Prevention, Standard Precautions Referral Physician: Dalia Reason for Referral: Evaluation/Treatment Medical History Pertinent Medical History: CABG, CAD, DM, Dementia, Parkinson's, PVD Additional Medical History SOCIAL HISTORY: -NO SMOKING -RARE ALCOHOL USE -NO DRUG USE PAST SURGICAL HISTORY: -HERNIA REPAIR X 3 -TURP -KNEE SURGERY FOR TORN MENISCUS -BILATERAL CAROTID ENDARTERECTOMY 2005 -3-VESSEL CABG -REMOVAL OF MELAN[place] OF BACK WITH LYMPH NODE BIOPSY RIGHT AXILLA 04/2021 -PORT RIGHT CHEST 04/2021 ADDITONAL PMH: -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 1-Pxynvojwee-myucbra completes the activity by him/herself with no assistance from a helper. 5-Set-up or Clean-up Assistance-helper sets up or cleans up; patient completes activity. [place] assists only prior to or following the activity. 4-Supervision or Touching Assistance-helper provides verbal cues and/or touching/steadying and/or contact guard assistance as patient completes activity. Assistance may be provided throughout the activity or intermittently. 3-Partial/Moderate Assistance-helper does LESS THAN HALF the effort. [place] lifts, holds or supports trunk or limbs, but provides less than half the effort. 2-Substantial/Maximal Assistance-helper does MORE THAN HALF the effort. [place] lifts or holds trunk or limbs and provides more than half the effort. 9-Tzwsfqrly-pvefrw does ALL the effort. Patient does none of the effort to complete the activity. Or, the assistance of 2 or more helpers is required for the patient to complete the activity. If activity was not attempted, code reason: 7-Patient Refused. 9-Not Applicable-not attempted and the patient did not perform the activity before the current illness, exacerbation or injury. 10-Not Attempted due to Environmental Limitations-(lack of equipment, weather restraints, etc.). 88-Not Attempted due to Medical Conditions or Safety Concerns. Bed Mobility: 3 Transfers (B,C,W/C): 3 Gait: 3 Indoor Mobility (Ambulation): Needed Some Help Prior Devices Use: Walker PT Evaluation-Current Subjective Patient in bed pre tx, agrees to PT, has no complaints of pain. Patient is on a bedpan. Pt/Family Goals "to get stronger" Objective Patient Orientation: Person, Place, Situation Attachments: IV ROM/Strength ROM Lower Extremities WNL Strength Lower Extremities LLE (hip flexion 3+/5, knee flexion 3+/5, knee extension 4/5, dorsiflexion 3+/5), RLE (hip flexion 3+/5, knee flexion 3+/5, knee extension 4/5, dorsiflexion 3+/5) Sensory Hearing: Functional Sensation Right Lower Extremit: Impaired Sensation Left Lower Extremity: Impaired Transfers Roll Left to Right (QC): 3 Lying to Sitting/Side of Bed(Q: 3 Sit to Stand (QC): 3 Chair/Mbj-sf-Tylza Xfer(QC): 4 Mod assist to roll for cleaning and mod assist to sit to the side of the bed. Brief is put on partway, patient stands with mod assist, brief is pulled up and patient is able to ambulate about 5-6' to the recliner, turn, and sit. Patient needs cues for proper positioning and safety. Has difficulty stepping with left foot. Balance Sitting Static: Fair Sitting Dynamic: Fair Standing Static: Poor Standing Dynamic: Poor Assessment/Needs Patient in recliner post tx with nurse call, phone, tray, all needs met. Patient instructed to use nurse call if he needs to get up. Patient has impaired mobility, strength, endurance. Rehab Potential: Fair PT Skilled Nursing Goals Skilled Nursing Goals PT Recycle Worker Goals Time Frame: Jan 10, 2022 Roll Left & Right (QC): 3 (Jamison) Sit to Lying (QC): 3 (Jamison) Lying-Sitting on Side/Bed(QC): 3 (Jamison) Sit to Stand (QC): 3 (Jamison) Chair/Yth-gk-Sooau Xfer(QC): 4 (SBA) Walk 10 feet (QC): 4 (SBA) PT Plan Problem List Problem List: Activity Tolerance, Functional Strength, Safety, Balance, Gait, Transfer, Bed Mobility, ROM Treatment/Plan Treatment Plan: Continue Plan of Care Treatment Plan: Bed Mobility, Education, Functional Activity Kortney, Functional Strength, Gait, Safety, Therapeutic Exercise, Transfers Treatment Duration: Jan 10, 2022 Frequency: 6 times per week Estimated Hrs Per Day: .25 hour per day Patient and/or Family Agrees t: Yes Safety Risks/Education Patient Education: Gait Training, Transfer Techniques, Correct Positioning, Safety Issues Teaching Recipient: Patient Teaching Methods: Demonstration, Discussion Response to Teaching: Reinforcement Needed Discharge Recommendations Plan Patient will perform bed mobility and transfer training, balance and endurance training, functional strengthening, stair training, gait training, and education, to improve functional mobility and independence at home. Therapy Discharge Recommendati: Other, See Comments Time Time In: 1321 Time Out: 1335 DATE: Jan 03, 2022 Total Billed Treatment Time: 14 Total Billed Treatment 1 visit HERVE 14' SHAUNA DOCKERY PT Jan 03, 2022 14:14
[2022-01-03 15:45] VITALS: BP_SYST 154; BP_SYST 176; BP_DIAS 74; BP_DIAS 78
[2022-01-03 19:40] VITALS: BP 136/70
[2022-01-03] MEDS: ENOXAPARIN 40 MG/0.4 ML (LOVENOX) SYR SC SCH (19:58)
[2022-01-03] MEDS: hydrALAZINE (APRESOLINE) 25 MG TAB PO PRN (23:46)
[2022-01-04] VITALS (9 sets, daily range): BP systolic 158–199; BP diastolic 77–95
[2022-01-04] MEDS: hydrALAZINE (APRESOLINE) 25 MG TAB PO PRN ×3 (03:54→15:32)
[2022-01-04] MEDS: NS IV 1000 ML 1,000 ML IV SCH (05:37)
[2022-01-04 07:19] LABS: HEMATOCRIT 35 % (40-54); HEMOGLOBIN 12.2 g/dL (13.3-17.7); MEAN CORPUSCULAR HEMOGLOBIN 31 pg (25-34); MEAN CORPUSCULAR HGB CONC 35 g/dL (32-36); MEAN CORPUSCULAR VOLUME 89 fL (80-99); MEAN PLATELET VOLUME 8.9 fL (9.0-12.2); PLATELET COUNT 259 10^3/uL (130-400); WHITE BLOOD COUNT 7.5 10^3/uL (4.3-11.0)
[2022-01-04 07:38] LABS: POTASSIUM 3.7 MMOL/L (3.6-5.0)
[2022-01-04 07:43] LABS: CREATININE SERUM 0.62 MG/DL (0.60-1.30)
[2022-01-04] MEDS: PROPRANOLOL 20 MG (INDERAL) TABLET PO SCH ×2 (08:00→20:12)
[2022-01-04] MEDS: polyethylene glycoL POWDER 17 GM (MIRALAX) PACK PO SCH ×2 (08:01→19:45)
[2022-01-04] MEDS: DOCUSATE SODIUM 100 MG (COLACE) CAP PO SCH ×2 (08:01→20:12)
[2022-01-04] MEDS ORDERED: ASPI-1238 PO (09:26)
[2022-01-04] MEDS ORDERED: HYDR-3923 PO (09:26)
[2022-01-04] MEDS ORDERED: DOCU100C37 PO (09:26)
[2022-01-04] MEDS ORDERED: ACET-2267 PO (09:26)
[2022-01-04] MEDS ORDERED: FURO20TA4 PO (09:26)
[2022-01-04] MEDS ORDERED: MELA5TAB50 PO (09:26)
[2022-01-04] MEDS ORDERED: HYDR-3924 PO (09:26)
[2022-01-04] MEDS ORDERED: ONDA8TAB13 SL (09:26)
[2022-01-04] MEDS ORDERED: POTA10TA PO (09:26)
[2022-01-04] MEDS ORDERED: METF-478 PO (09:26)
[2022-01-04] MEDS ORDERED: PROP60CA PO (09:26)
[2022-01-04] MEDS ORDERED: PANT40TA52 PO (09:26)
[2022-01-04] MEDS ORDERED: ALPR0.254 PO (09:26)
[2022-01-04] MEDS ORDERED: UBID100C17 PO (09:26)
[2022-01-04] MEDS ORDERED: OXYC5TAB PO (09:26)
--- NOTE | 2022-01-04 09:54 | Occupational Ther Daily Note ---
OT Current Status-Daily Note Subjective Pt sitting in recliner, alert. Pt agrees to therapy. C/o sore on buttocks. Reported to nursing. Dressing changed. Mental Status/Objective Patient Orientation: Person, Place, Time, Situation Attachments: IV ADL-Treatment Pt declined ambulating to the sink. Pt completed oral care at recliner after set up. Therapist assisted pt with grooming. Pt stated that he is not able to shave self with electric razor because he has too bad of tremors. Pt required max encouragement to complete own oral care after set up. Pt max A to for sit to stand transfer with FWW. Pt CGA to walk from recliner to EOB, max cues to turn and sit onto EOB. Pt max A for toilet transfer to pivot to/from BSC/bed. Pt max A x2 for toilet hygiene, person to stabilize in standing while 2nd person to cleanse buttocks. Pt is max A for bed mobility. Pt required cues to wait until fully turned to sit onto appropriate surface. Pt in bed at end of session. Phone/call light in reach. All needs met in room. Therapy Code Descriptions/Definitions Functional [place] Measure: 0=Not Assessed/NA 4=Minimal Assistance 1=Total Assistance 5=Supervision or Setup 2=Maximal Assistance 6=Modified [place] 3=Moderate Assistance 7=Complete IndependenceSCALE: Activities may be completed with or without assistive devices. 6-Zyoobzerbu-rndvmib completes the activity by him/herself with no assistance from a helper. 5-Set-up or Clean-up Assistance-helper sets up or cleans up; patient completes activity. [place] assists only prior to or following the activity. 4-Supervision or Touching Assistance-helper provides verbal cues and/or touching/steadying and/or contact guard assistance as patient completes activity. Assistance may be provided throughout the activity or intermittently. 3-Partial/Moderate Assistance-helper does LESS THAN HALF the effort. [place] lifts, holds or supports trunk or limbs, but provides less than half the effort. 2-Substantial/Maximal Assistance-helper does MORE THAN HALF the effort. [place] lifts or holds trunk or limbs and provides more than half the effort. 7-Gbxzdxdyi-swquvc does ALL the effort. Patient does none of the effort to complete the activity. Or, the assistance of 2 or more helpers is required for the patient to complete the activity. If activity was not attempted, code reason: 7-Patient Refused. 9-Not Applicable-not attempted and the patient did not perform the activity before the current illness, exacerbation or injury. 10-Not Attempted due to Environmental Limitations-(lack of equipment, weather restraints, etc.). 88-Not Attempted due to Medical Conditions or Safety Concerns. Oral Hygiene (QC): 3 Toileting Hygiene (QC): 2 Toilet Transfer (QC): 2 OT Care Home Goals Linter Drier Operator Goals Time Frame: Jan 21, 2022 Eating (QC): 3 Oral Hygiene (QC): 3 Upper Body Dressing (QC): 3 Additional Goals: 1-Demonstrate ADL Tasks, 2-Verbalize Understanding, 3- ImproveStrength/[place] 1=Demonstrate adherence to instructed precautions during ADL tasks. 2=Patient will verbalize/demonstrate understanding of assistive devices/modifications for ADL. 3=Patient will improve strength/tolerance for activity to enable patient to perform ADL's. OT Education/Plan Problem List/Assessment Assessment: Decreased Activ Tolerance, Decreased Safety Aware, Decreased UE Strength, Dependent Transfers, Impaired Bed Mobility, Impaired Cognition, Impaired Funct Balance, Impaired Self-Care Skills Discharge Recommendations Plan/Recommendations: Continue POC Treatment Plan/Plan of Care Patient would benefit from OT for education, treatment and training to promote independence in ADL's, mobility, safety and/or upper extremity function for ADL's. Plan of Care: ADL Retraining, Caregiver Training, Functional Mobility, Group Exercise/Act as Ind, UE Funct Exercise/Act Treatment Duration: Jan 21, 2022 Frequency: 3 times per week (3-5x/week) Estimated Hrs Per Day: .25 hour per day Agreement: Yes Rehab Potential: Fair Time Start Time: 09:05 Stop Time: 09:45 DATE: Jan 04, 2022 Total Time Billed (hr/min): 40 Billed Treatment Time 1 visit ADL 3 (40 min) HOME BAÑUELOS Jan 04, 2022 09:54
--- NOTE | 2022-01-04 10:28 | Physical Therapy Daily Note ---
PT Daily Note-Current Subjective Pt. in bed upon arrival, declines getting up for gait or p in recliner, "Im worn out, already bee up there, but happy to say I pooped" Pt states he has gotten continually less active for quite some time and most recently after a fall and back pain and LE pain that he explains as neuropathy. Pt. agrees to bed mobility and TRF training with encouragement. After rx today pt states "Thats the best work out Roxane had in a long time." "Please come back" Pain Numeric Pain Scale: 5-Moderate Pain Location: Right Location Body Site: Hip Pain Description: Pressure Section J - Health Conditions 1. Rarely or not at all 2. Occasionally 3. Frequently 4. Almost constantly 8. Unable to answer Pain Effect on Sleep: 2 Pain Interference with Therapy: 2 Pain Interference w/Day-to-Day: 2 Appearance pt c/o pain in area of right hip flexor santos with heel slide right, noted pill roll and tremors R>L Mental Status Patient Orientation: Normal For Age Attachments: IV Transfers SCALE: Activities may be completed with or without assistive devices. 5-Hjclscsyof-uyfhinj completes the activity by him/herself with no assistance from a helper. 5-Set-up or Clean-up Assistance-helper sets up or cleans up; patient completes activity. [place] assists only prior to or following the activity. 4-Supervision or Touching Assistance-helper provides verbal cues and/or touching/steadying and/or contact guard assistance as patient completes activi ty. Assistance may be provided throughout the activity or intermittently. 3-Partial/Moderate Assistance-helper does LESS THAN HALF the effort. [place] lifts, holds or supports trunk or limbs, but provides less than half the effort. 2-Substantial/Maximal Assistance-helper does MORE THAN HALF the effort. [place] lifts or holds trunk or limbs and provides more than half the effort. 8-Cbikijtul-ipxxtf does ALL the effort. Patient does none of the effort to complete the activity. Or, the assistance of 2 or more helpers is required for the patient to complete the activity. If activity was not attempted, code reason: 7-Patient Refused. 9-Not Applicable-not attempted and the patient did not perform the activity before the current illness, exacerbation or injury. 10-Not Attempted due to Environmental Limitations-(lack of equipment, weather restraints, etc.). 88-Not Attempted due to Medical Conditions or Safety Concerns. Roll Left & Right (QC): 4 Sit to Lying (QC): 3 Lying to Sitting/Side of Bed(Q: 4 Sit to Stand (QC): 4 bed level raised for sit to stands, Exercises Supine Ex: Bridging, Ankle pumps, Quad Set, Rolling, Glut sets, Lower trunk rotation, Heel Slides, Short Arc Quads, Scooting (up in bed using rail over head), Straight leg raise, Hip abd/add Supine Reps: 12 Seated Therapy Exercises: Ankle pumps, Hip flexion Seated Reps: 10 Treatments gentle hamstring and low back stretch with LTRs with good results and pt stating less discomfort, detailed step by step sup to sit and sit to sup instructions with good results, pt did pull himself up in bed with instruction Assessment Current Status: Fair Progress pt. appears fearful of falling and admits so, this inhibits his cooperation and he is guarded with all movement, tremors and tightness limit funct PT Short Term Goals Short Term Goals Time Frame: Jan 04, 2022 PT Fpc Goals Head Athletic Trainer/Strength Coach Goals PT Fpc Goals Time Frame: Jan 10, 2022 Roll Left & Right (QC): 3 (Jamison) Sit to Lying (QC): 3 (Jamison) Lying-Sitting on Side/Bed(QC): 3 (Jamison) Sit to Stand (QC): 3 (Jamison) Chair/Ahj-he-Bagjl Xfer(QC): 4 (SBA) Walk 10 feet (QC): 4 (SBA) PT Plan Treatment/Plan Treatment Plan: Continue Plan of Care Treatment Plan: Bed Mobility, Education, Functional Activity [place], Functional Strength, Gait, Safety, Therapeutic Exercise, Transfers Treatment Duration: Jan 10, 2022 Frequency: 6 times per week Estimated Hrs Per Day: .25 hour per day Patient and/or Family Agrees t: Yes Safety Risks/Education Patient Education: Transfer Techniques, Correct Positioning, Disease Process, Safety Issues Teaching Recipient: Patient Teaching Methods: Demonstration, Discussion Response to Teaching: Verbalize Understanding, Return Demonstration, Reinforcement Needed Time Time In: 945 Time Out: 1020 DATE: Jan 04, 2022 Total Billed Treatment Time: 35 Total Billed Treatment 1,FA15m,EX20m KIMBERLY MCMAHON OFFICE MACHINES WIRER Jan 04, 2022 10:28
[2022-01-04] MEDS ORDERED: FUROSEMIDE 20 MG (LASIX) TAB PO PRN (10:30)
--- NOTE | 2022-01-04 10:52 | Progress Note ---
RIVAS MARQUEZ 01/04/22 1052: Subjective Subjective/Events-last exam Patient reports he was able to pass stools yesterday again, but only after enema was given, despite the fact that he has been given Colace and Miralax BID through his hospital course. He states he feels is unable to stool without the enemas. The patient denies any abdominal pain and notes his appetite continues to be improved. The patient has multiple secondary complaints. His first concern is increased urinary frequency; the patient states he urinated over 20 times through the night, and nursing was unable to help him multiple times, leaving him to urinate in his bed gardner, which he finds uncomfortable. The patient's second complaint is bilateral dorsal foot, anterior ankle, and distal castro pain and tingling with swelling. The patient is on furosemide at home, but he has not taken his home medications since admission. The patient's final complaint is that he has difficulty sleeping at night, and he remarks he has taken melatonin in the past. Patient's sodium has improved from 126 to 127, though is still low. Patient had BP as elevated as 199/82, but, as noted above, he has not taken his home medications, including for BP control, since admission. Review of Systems General: No Chills Pulmonary: No Dyspnea; Cough Cardiovascular: Edema; No: Chest Pain Gastrointestinal: Constipation; No: Nausea, Vomiting, Abdominal Pain, Diarrhea Genitourinary: Frequency, Incontinence (secondary to frequency and immobility) Musculoskeletal: foot pain Focused Exam Cardiovascular: Regular Rate, Rhythm Objective Exam Last Set of Vital Signs Vital Signs Date Time Temp Pulse Resp B/P (MAP) Pulse Ox O2 Delivery O2 Flow Rate FiO2 01/04/22 09:21 69 158/81 (106) 01/04/22 08:00 96 Room Air 0.00 01/04/22 07:40 36.7 18 01/02/22 21:35 21 Capillary Refill : Less Than 3 Seconds I&O Intake and Output 01/04/22 00:00 Intake Total 3270 ml Output Total 1050 ml Balance 2220 ml Intake Oral 1270 ml IV Total 2000 ml Output Urine Total 1050 ml # Voids 5 # Bowel Movements 3 General: Alert, Cooperative, No Acute Distress HEENT: Atraumatic Neck: Supple, No LAD Lungs: Clear to Auscultation, Normal Air Movement, Other (cough following multiple deep inspirations) Heart: Regular Rate, No Murmurs, Rubs Abdomen: Normal Bowel Sounds, Soft, No Tenderness, Other (hard, 5 cm mass in the patient's epigastrium, unchanged since yesterday.) Extremities: Normal Pulses (2+ radial bilaterally. 1+ bilaterally due to edema), Other (bilateral 1+ pitting edema to the patient's feet, ankle, and pretibial regions.) Skin: No Rashes Results/Procedures Lab Laboratory Tests 01/04/22 07:10: White Blood Count 7.5, Red Blood Count 3.98L, Hemoglobin 12.2L, Hematocrit 35L, Mean Corpuscular Volume 89, Mean Corpuscular Hemoglobin 31, Mean Corpuscular Hemoglobin Concent 35, Red Cell Distribution Width 13.9, Platelet Count 259, Mean Platelet Volume 8.9L, Sodium Level 127L, Potassium Level 3.7, Chloride Level 99, Carbon Dioxide Level 22, Anion Gap 6, Blood Urea Nitrogen 4L, Creatinine 0.62, Estimat Glomerular Filtration Rate 92, BUN/Creatinine Ratio 6, Glucose Level 112H, Calcium Level 8.0L Assessment/Plan Assessment/Plan (1) Constipation Onset Date: ~ 12/28/2021 Status: Acute Assessment & Plan: Cleared up with enema, Miralax, Colace here. Continue Miralax at home. Qualifiers: Qualified Codes: K59.00 - Constipation, unspecified (2) Parkinson disease Status: Chronic Assessment & Plan: We are seeking referral to correction with PT, patient is agreeable to this plan. (3) HTN (hypertension) Status: Chronic Assessment & Plan: Continue taking hydralazine, propranolol, furosemide. (4) HLD (hyperlipidemia) Status: Chronic Assessment & Plan: Follow up with PCP (5) Gait instability Status: Chronic Assessment & Plan: We are seeking referral to correction with PT, patient is agreeable to this plan. 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 (8) Pedal edema Status: Acute Assessment & Plan: Restart the patient on home meds, including furosemide. (9) Increased urinary frequency Status: Acute Assessment & Plan: Restart the patient on home meds, including furosemide. (10) Sleeplessness Status: Acute Assessment & Plan: Start patient on melatonin. Clinical Quality Measures Admission Status Admission Dx Constipation Admission Status: Inpatient Order (span 2 midnights) Reason for Inpatient Admission: Constipation MIRTHA DE MD 01/04/22 1332: Supervisory-Addendum Brief Verification & Attestation Participated in pt care: history, MDM, physical Personally performed: exam, history, MDM, supervision of care Care discussed with: Medical Student Procedures: n/a I personally saw and examined patient and repeated my own history and exam which confirmed that documented by the medical student. I directed the plan of care as documented- except of note, he was not on sodium tablets at home per pharmacy technology instructor med rec, and these have not been restarted for his chronic hyponatremia at this time. RIVAS MARQUEZ Jan 04, 2022 10:52 MIRTHA DE MD Jan 04, 2022 13:32
[2022-01-04] MEDS: hydrALAZINE (APRESOLINE) 25 MG TAB PO SCH ×2 (14:04→22:16)
[2022-01-04] MEDS: PANTOPRAZOLE 40 MG (PROTONIX) TAB PO SCH (15:32)
[2022-01-04] MEDS: ALPRAZolam 0.25 MG (XANAX) TAB PO PRN (20:12)
[2022-01-04] MEDS: ENOXAPARIN 40 MG/0.4 ML (LOVENOX) SYR SC SCH (20:12)
[2022-01-04] MEDS ORDERED: MELATONIN 10 MG TABLET PO SCH (21:00)
[2022-01-04] MEDS ORDERED: ASPIRIN E.C. 81 MG (ECOTRIN) TAB PO SCH (21:00)
[2022-01-05] VITALS: BP 165/70
[2022-01-05 01:17] VITALS: BP 165/70
[2022-01-05 04:00] VITALS: BP 164/84
[2022-01-05] MEDS: PANTOPRAZOLE 40 MG (PROTONIX) TAB PO SCH (05:41)
[2022-01-05] MEDS: hydrALAZINE (APRESOLINE) 25 MG TAB PO SCH (05:41)
[2022-01-05 05:55] LABS: HEMATOCRIT 36 % (40-54); HEMOGLOBIN 12.3 g/dL (13.3-17.7); MEAN CORPUSCULAR HEMOGLOBIN 31 pg (25-34); MEAN CORPUSCULAR HGB CONC 34 g/dL (32-36); MEAN CORPUSCULAR VOLUME 89 fL (80-99); MEAN PLATELET VOLUME 8.9 fL (9.0-12.2); PLATELET COUNT 287 10^3/uL (130-400); WHITE BLOOD COUNT 7.9 10^3/uL (4.3-11.0)
[2022-01-05 06:07] LABS: POTASSIUM 3.9 MMOL/L (3.6-5.0)
[2022-01-05 06:08] LABS: CALCIUM 8.3 MG/DL (8.5-10.1)
[2022-01-05 06:12] LABS: CREATININE SERUM 0.64 MG/DL (0.60-1.30)
[2022-01-05 07:35] VITALS: BP 158/78
--- NOTE | 2022-01-05 08:30 | Progress Note ---
Subjective Subjective/Events-last exam Patient reports he feels "pretty good" this morning. He states he slept well last night and attributes this to the melatonin and Xanax he was given. The patient remarks his increased urinary frequency has improved significantly since yesterday. The patient does note he still has bilateral foot pain and weakness. He indicates his right foot pain is slightly worse than his left, and both are slightly weaker than normal. The patient states his appetite is improving. He states he passed a stool yesterday morning without a prior enema. The patient denies any abdominal pain. He endorses back pain from his recumbent position that improves with Tylenol. He also denies any headache, chest pain, or shortness of breath. Review of Systems General: No Chills Pulmonary: No Dyspnea; Cough Cardiovascular: No: Chest Pain Gastrointestinal: No: Vomiting, Abdominal Pain, Constipation Genitourinary: No Frequency, No Incontinence Musculoskeletal: foot pain Neurological: Weakness Objective Exam Last Set of Vital Signs Vital Signs Date Time Temp Pulse Resp B/P (MAP) Pulse Ox O2 Delivery O2 Flow Rate FiO2 01/05/22 07:35 36.8 58 18 158/78 (104) 97 Room Air 01/05/22 04:00 0.00 0.00 01/02/22 21:35 21 Capillary Refill : Less Than 3 Seconds I&O Intake and Output 01/05/22 00:00 Intake Total 2410 ml Output Total 750 ml Balance 1660 ml Intake Oral 1410 ml IV Total 1000 ml Output Urine Total 750 ml # Voids 8 # Bowel Movements 2 Results/Procedures Lab Laboratory Tests 01/05/22 05:48: White Blood Count 7.9, Red Blood Count 4.03L, Hemoglobin 12.3L, Hematocrit 36L, Mean Corpuscular Volume 89, Mean Corpuscular Hemoglobin 31, Mean Corpuscular Hemoglobin Concent 34, Red Cell Distribution Width 14.2, Platelet Count 287, Mean Platelet Volume 8.9L, Sodium Level 127L, Potassium Level 3.9, Chloride Level 98, Carbon Dioxide Level 22, Anion Gap 7, Blood Urea Nitrogen 4L, Creatinine 0.64, Estimat Glomerular Filtration Rate 91, BUN/Creatinine Ratio 6, Glucose Level 131H, Calcium Level 8.3L Assessment/Plan Assessment/Plan (1) Constipation Onset Date: ~ 12/28/2021 Status: Acute Assessment & Plan: Cleared up with enema, Miralax, Colace here. Continue Miralax, Colace upon discharge. Qualifiers: Qualified Codes: K59.00 - Constipation, unspecified (2) Parkinson disease Status: Chronic Assessment & Plan: Discharge to half-way for further care and PT. (3) HTN (hypertension) Status: Chronic Assessment & Plan: Continue taking hydralazine, propranolol, furosemide. (4) HLD (hyperlipidemia) Status: Chronic Assessment & Plan: Follow up with PCP (5) Gait instability Status: Chronic Assessment & Plan: Discharge to half-way for further care and PT. 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 (8) Pedal edema Status: Acute Assessment & Plan: Continue administration of furosemide upon discharge. (9) Increased urinary frequency Status: Acute Assessment & Plan: Continue administration of furosemide upon discharge. (10) Sleeplessness Status: Acute Assessment & Plan: Continue administration of melatonin and Xanax. Clinical Quality Measures Admission Status Admission Dx Constipation RIVAS MARQUEZ Jan 05, 2022 08:30
[2022-01-05] MEDS: ALPRAZolam 0.25 MG (XANAX) TAB PO PRN (08:32)
[2022-01-05] MEDS: ACETAMINOPHEN 500 MG TAB (TYLENOL) PO PRN (08:33)
[2022-01-05] MEDS: PROPRANOLOL 20 MG (INDERAL) TABLET PO SCH (08:33)
[2022-01-05] MEDS: DOCUSATE SODIUM 100 MG (COLACE) CAP PO SCH (08:34)
[2022-01-05] MEDS: polyethylene glycoL POWDER 17 GM (MIRALAX) PACK PO SCH (08:34)
[2022-01-05] MEDS ORDERED: NON-FORMULARY MEDICATION 1 EA EA (Ubidecarenone (Coq-10) 100 MG) PO SCH (09:00)
--- NOTE | 2022-01-05 09:29 | Physical Therapy Daily Note ---
PT Daily Note-Current Subjective Pt. up in recliner, agrees to Rx. Pt. requests toilet. Pain Numeric Pain Scale: 5-Moderate Pain Location: Right Location Body Site: Hip Pain Description: Ache Section J - Health Conditions 1. Rarely or not at all 2. Occasionally 3. Frequently 4. Almost constantly 8. Unable to answer Pain Effect on Sleep: 2 Pain Interference with Therapy: 2 Pain Interference w/Day-to-Day: 2 Mental Status Patient Orientation: Person, Place, Time Transfers SCALE: Activities may be completed with or without assistive devices. 6-Hpprpusfbg-msjkhfb completes the activity by him/herself with no assistance from a helper. 5-Set-up or Clean-up Assistance-helper sets up or cleans up; patient completes activity. [place] assists only prior to or following the activity. 4-Supervision or Touching Assistance-helper provides verbal cues and/or to uching/steadying and/or contact guard assistance as patient completes activity. Assistance may be provided throughout the activity or intermittently. 3-Partial/Moderate Assistance-helper does LESS THAN HALF the effort. [place] lifts, holds or supports trunk or limbs, but provides less than half the effort. 2-Substantial/Maximal Assistance-helper does MORE THAN HALF the effort. [place] lifts or holds trunk or limbs and provides more than half the effort. 4-Gxgozrqmu-glqjzi does ALL the effort. Patient does none of the effort to complete the activity. Or, the assistance of 2 or more helpers is required for the patient to complete the activity. If activity was not attempted, code reason: 7-Patient Refused. 9-Not Applicable-not attempted and the patient did not perform the activity before the current illness, exacerbation or injury. 10-Not Attempted due to Environmental Limitations-(lack of equipment, weather restraints, etc.). 88-Not Attempted due to Medical Conditions or Safety Concerns. Sit to Stand (QC): 3 Chair/Jql-bn-Juwcb Xfer(QC): 3 Toilet Transfer (QC): 3 Gait Training Does the Patient Walk?: Yes Walk 10 feet (QC): 3 Gait Persons Needed: 1 Gait Assistive Device: FWW much difficulty with movement, pt. comments, "my feet are stuck to the floor, I cant move" needs some gentle rocking and mod assist to ambulate 10 feet in 8 mins. gait to toilet with call colmenares at hand Exercises Supine Ex: Ankle pumps, Quad Set, Glut sets, Scooting Supine Reps: 12 Seated Therapy Exercises: Ankle pumps, Sit to stand, Long arc quads, Hip flexion Seated Reps: 12 Assessment Current Status: Fair Progress great deal of difficulty with funct movement, tremors cont PT Short Term Goals Short Term Goals Time Frame: Jan 04, 2022 PT Group Home Goals Welder Repair Goals PT Welder Repair Goals Time Frame: Jan 10, 2022 Roll Left & Right (QC): 3 (Jamison) Sit to Lying (QC): 3 (Jamison) Lying-Sitting on Side/Bed(QC): 3 (Jamison) Sit to Stand (QC): 3 (Jamison) Chair/Aqw-vm-Kntmz Xfer(QC): 4 (SBA) Walk 10 feet (QC): 4 (SBA) PT Plan Treatment/Plan Treatment Plan: Continue Plan of Care Treatment Plan: Bed Mobility, Education, Functional Activity Kortney, Functional Strength, Gait, Safety, Therapeutic Exercise, Transfers Treatment Duration: Jan 10, 2022 Frequency: 6 times per week Estimated Hrs Per Day: .25 hour per day Patient and/or Family Agrees t: Yes Safety Risks/Education Patient Education: Gait Training, Transfer Techniques, Correct Positioning, Disease Process, Safety Issues Teaching Recipient: Patient Teaching Methods: Demonstration, Discussion Response to Teaching: Unable to Return Demonstration, Reinforcement Needed Time Time In: 825 Time Out: 845 DATE: Jan 05, 2022 Total Billed Treatment Time: 20 Total Billed Treatment 1,FA20m KIMBERLY MCMAHON DESIGNER AND PATTERNMAKER Jan 05, 2022 09:29
[2022-01-05] MEDS ORDERED: POLY17PO54 PO (10:43)
[2022-01-05] MEDS ORDERED: DOCU100C37 PO (10:43)
--- NOTE | 2022-01-05 10:45 | Discharge Inst-Skilled Nursing ---
Discharge Inst-Skilled NF Patient Instructions Patient Problems: Constipation Generalized weakness HTN Parkinson Disease Diabetes mellitus Hyponatremia Melanoma with mets to lymph node Consult/Follow Up/Orders Follow up appt.: Follow up with primary after SNF discharge. Skilled NF Admit to: [facility] Certifications SNF I certify that SNF services are required to be given on an inpatient basis because of the above named patient's need for longterm care on a continuing basis for the conditions(s) for which he/she was receiving inpatient hospital services prior to his/her transfer to the SNF. [facility] Facility Order: Nursing Services, [facility] Extension Specialist-Evaluate & Treat, Physical Therapy-Evaluate & Treat Oxygen Delivery Method: Room Air Discharge Diet: ADA Diet Daily Activity as Tolerated: Yes Discharge Medications New Medications: Polyethylene Glycol 3350 (Polyethylene Glycol 3350) 17 Gram Powd.pack 17 GM PO BID, #1 EACH 0 Refills Changed Medications: Docusate Sodium (Docusate Sodium) 100 Mg Capsule 100 MG PO BID, #60 CAP 0 Refills (Changed from: Removed Reason; Refills: ) Continued Medications: Acetaminophen (Tylenol Extra Strength) 500 Mg Tablet 500-1000 MG PO Q8H PRN for PAIN-MILD (1-4), TAB ALPRAZolam (ALPRAZolam) 0.25 Mg Tablet 0.25 MG PO Q6H PRN for ANXIETY, TAB Aspirin (Aspirin EC) 81 Mg Tablet.dr 81 MG PO HS, TAB Furosemide (Furosemide) 20 Mg Tablet 20 MG PO BID PRN for FLUID RETENTION, TAB Guaifenesin/Dextromethorphan (Mucinex Dm ER 1,200-60 mg Tab) 1,200 Mg-60 Mg Tbmp.12hr 1 EACH PO Q12H, EA Hydralazine HCl (Hydralazine HCl) 25 Mg Tablet 25 MG PO Q8H PRN for BLOOD PRESSURE, TAB Hydralazine HCl (Hydralazine HCl) 50 Mg Tablet 50 MG PO 0600,1400,2200, TAB Melatonin (Melatonin) 5 Mg Tab.chew 5-10 MG PO HS, TAB Metformin HCl (Metformin HCl ER) 500 Mg Tab.er.24 500 MG PO BIDAC, TAB Ondansetron (Ondansetron Odt) 8 Mg Tab.rapdis 8 MG SL Q6H PRN for NAUSEA/VOMITING-1ST LINE, TAB Oxycodone HCl (Oxycodone HCl) 5 Mg Tablet 5 MG PO Q4H PRN for PAIN-SEVERE (8-10), TAB Pantoprazole Sodium (Pantoprazole Sodium) 40 Mg Tablet.dr 40 MG PO BIDAC, TAB Potassium Chloride (K-Tab ER) 10 Meq Tablet.er 10 MEQ PO BID PRN for WHEN A DOSE OF LASIX IS TAKEN, TAB Propranolol HCl (Propranolol HCl ER) 60 Mg Cap.sa.24h 60 MG PO BID, CAP Ubidecarenone (Coq-10) 100 Mg Capsule 100 MG PO DAILY, CAP Mirtha Ramon Jan 05, 2022 10:43 MIRTHA RAMON MD Jan 05, 2022 10:45
--- NOTE | 2022-01-05 10:49 | Occ Therapy Progress Note ---
Therapy Progress Note Pt is lethargic and unable to participate in skilled therapy. Pt woke enough to state no when asked if he wanted to complete oral care or UE exercises. Will attempt at next available time. Family in room, in agreement for pt not to participate in therapy at this time. HOME BAÑUELOS Jan 05, 2022 10:49
[2022-01-05 11:08] VITALS: BP 141/67
--- NOTE | 2022-01-05 16:56 | Discharge Summary ---
RIVAS MARQUEZ 01/05/22 1644: Discharge Summary Hospital Course Problems Reviewed?: Yes Problems/Diagnosis: (1) Constipation Onset Date: ~ 12/28/2021 Status: Acute Assessment & Plan: Resolved with enema, Miralax, Colace here. Continue Miralax, Colace upon discharge. Qualifiers: Qualified Codes: K59.00 - Constipation, unspecified (2) Parkinson disease Status: Chronic Assessment & Plan: [facility] [place] [facility] care and PT. (3) HTN (hypertension) Status: Chronic Assessment & Plan: Continue taking hydralazine, propranolol, furosemide. (4) HLD (hyperlipidemia) Status: Chronic Assessment & Plan: Follow up with PCP (5) Gait instability Status: Chronic Assessment & Plan: [facility]charge to [place] [facility] for further care and PT. 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 (8) Pedal edema Status: Acute Assessment & Plan: Continue administration of furosemide upon discharge. (9) Increased urinary frequency Status: Acute Assessment & Plan: Continue administration of furosemide upon discharge. (10) Sleeplessness Status: Acute Assessment & Plan: Continue administration of melatonin and Xanax. Hospital Course Date of Admission: Jan 02, 2022 at 19:46 Admission Diagnosis : [facility]: 01[facility]22 Discharge Diagnosis: Constipation Hospital Course: Ravinder Garcia is an 86 yo male who was admitted from the emergency department for constipation. His constipation was successfully treated initially with multiple enemas, and he ultimately was able to pass a stool without an enema while taking Miralax and Colace. While in the hospital, the patient developed additional symptoms of increased urinary frequency and pedal edema, which resolved and improved, respectively, with discontinuation of his saline and restarting of his home med furosemide. The patient also complained of bilateral leg weakness and difficulty ambulating, accompanied by bilateral hand tremors, suggestive of Parkinson's Disease, so the patient was placed into a [place] [facility] facility for continued care and initiation of PT for strengthening. The patient endorses improving appetite and reduction of abdominal pain throughout his hospitalization. He also noted back pain which resolved with Tylenol here. The patient denies any chest pain, shortness of breath, headache, or abdominal pain at the time of his discharge, and his vital signs remain stable with improving hypertension. Labs and Pending Lab Test: Laboratory Tests 01/05/22 05:48: White Blood Count 7.9, Red Blood Count 4.03L, Hemoglobin 12.3L, Hematocrit 36L, Mean Corpuscular Volume 89, Mean Corpuscular Hemoglobin 31, Mean Corpuscular Hemoglobin Concent 34, Red Cell Distribution Width 14.2, Platelet Count 287, Mean Platelet Volume 8.9L, Sodium Level 127L, Potassium Level 3.9, Chloride Level 98, Carbon Dioxide Level 22, Anion Gap 7, Blood Urea Nitrogen 4L, Creatinine 0.64, Estimat Glomerular Filtration Rate 91, BUN/Creatinine Ratio 6, Glucose Level 131H, Calcium Level 8.3L Home Meds Active Polyethylene Glycol 3350 17 Gram Powd.pack 17 Gm PO BID Docusate Sodium 100 Mg Capsule 100 Mg PO BID Reported Melatonin 5 Mg Tab.chew 5-10 Mg PO HS Tylenol Extra Strength (Acetaminophen) 500 Mg Tablet 500-1,000 Mg PO Q8H PRN Aspirin EC (Aspirin) 81 Mg Tablet.dr 81 Mg PO HS Coq-10 (Ubidecarenone) 100 Mg Capsule 100 Mg PO DAILY Pantoprazole Sodium 40 Mg Tablet.dr 40 Mg PO BIDAC Hydralazine HCl 50 Mg Tablet 50 Mg PO 0600,1400,2200 Hydralazine HCl 25 Mg Tablet 25 Mg PO Q8H PRN Ondansetron Odt (Ondansetron) 8 Mg Tab.rapdis 8 Mg SL Q6H PRN Propranolol HCl ER (Propranolol HCl) 60 Mg Cap.sa.24h 60 Mg PO BID Metformin HCl ER (Metformin HCl) 500 Mg Tab.er.24 500 Mg PO BIDAC K-Tab ER (Potassium Chloride) 10 Meq Tablet.er 10 Meq PO BID PRN Furosemide 20 Mg Tablet 20 Mg PO BID PRN ALPRAZolam 0.25 Mg Tablet 0.25 Mg PO Q6H PRN Oxycodone HCl 5 Mg Tablet 5 Mg PO Q4H PRN Mucinex Dm ER 1,200-60 mg Tab (Guaifenesin/Dextromethorphan) 1,200 Mg-60 Mg Tbmp.12hr 1 Each PO Q12H Discharge Physical Examination Allergies: Coded Allergies: hydrocodone (Unverified Allergy, Mild, 03/22/07) amlodipine (Unverified Allergy, Unknown, 10/25/13) benazepril (Unverified Allergy, Unknown, 10/25/13) carbidopa (Unverified Allergy, Unknown, 05/18/21) codeine (Verified Allergy, Unknown, 09/02/05) levodopa (Unverified Allergy, Unknown, 05/18/21) telmisartan (Unverified Allergy, Unknown, 10/25/13) General Appearance: No Apparent Distress Respiratory: Lungs Clear, Normal Breath Sounds, No Accessory Muscle Use, No Respiratory Distress, Other (cough induced by multiple deep inspirations) Cardiovascular: Regular Rate, Rhythm, No Edema, No Gallop, No Murmur, Normal Peripheral Pulses Gastrointestinal: Normal Bowel Sounds, No Pulsatile Mass, Non Tender, Soft, Mass (hard 5 cm mass located at the epigastrium, unchanged from previous) Extremity: Normal Capillary Refill, Pedal Edema (1+ pitting bilaterally), Other (pain to palpation of the bilateral feet, ankles, and shins, right greater than left.) Skin: Normal Color, Warm/Dry Neurologic/Psychiatric: Motor Weakness (4/5 strength to bilateral legs) Discharge Summary Date of Admission Jan 02, 2022 at 19:46 Date of Discharge Jan 05, 2022 at 13:30 Discharge Date: Jan 05, 2022 Discharge Time: 13:30 Admission Diagnosis Constipation Discharge Diagnosis Constipation (1) Pedal edema Status: Acute Assessment & Plan: Continue furosemide upon discharge. (2) Foot pain, bilateral Status: Acute Assessment & Plan: Continue furosemide upon discharge. (3) Sleeplessness Status: Acute Assessment & Plan: Continue melatonin and Xanax as needed for sleep. (4) Increased urinary frequency Status: Acute Assessment & Plan: Resolved with discontinuation of saline. (5) Weakness generalized Status: Chronic Assessment & Plan: [facility]charge [place] [facility] for continued care and PT. (6) HTN (hypertension) Status: Chronic Assessment & Plan: Continue home medications. (7) Parkinson disease Status: Chronic Assessment & Plan: [facility]charge to [facility] for continued care and PT. (8) Constipation Onset Date: ~ 12/28/2021 Status: Acute Assessment & Plan: Continue taking Miralax and Colace at home. Qualifiers: Qualified Codes: K59.00 - Constipation, unspecified MIRTHA DE MD 01/06/22 1718: Discharge Summary Hospital Course Assessment/Pt DC Instructions Follow up via SNF Discharge Physical Examination Allergies: Coded Allergies: hydrocodone (Unverified Allergy, Mild, 03/22/07) amlodipine (Unverified Allergy, Unknown, 10/25/13) benazepril (Unverified Allergy, Unknown, 10/25/13) carbidopa (Unverified Allergy, Unknown, 05/18/21) codeine (Verified Allergy, Unknown, 09/02/05) levodopa (Unverified Allergy, Unknown, 05/18/21) telmisartan (Unverified Allergy, Unknown, 10/25/13) Supervisory-Addendum Brief Verification & Attestation Participated in pt care: history, MDM, physical Personally performed: exam, history, MDM, supervision of care Care discussed with: Medical Student Procedures: n/a I personally saw and examined patient and agree with student documentation, except of note, patient was no longer on NaCl tablets on admission, and those were not restarted. Also patient did note previous possible diagnosis of PD and that meds for that had caused bad side effects. RIVAS MARQUEZ Jan 05, 2022 16:44 MIRTHA DE MD Jan 06, 2022 17:18
== END 2022-01-05 10:41 ==
LOC: EDUNIT# 15:32 → ER 15:34 → 4TH 19:30 → UNDOADMOB 19:46 → 4TH 19:46 → UNDODISOB 01-05 10:41
PROVIDERS: ADMIT Internal Medicine; ATTEND Family Medicine
DX: K59.00 Constipation, unspecified (principal); I10 Essential (primary) hypertension; G20 Parkinson's disease; R53.1 Weakness; R35.0 Frequency of micturition; G47.00 Insomnia, unspecified; M79.672 Pain in left foot; M79.671 Pain in right foot; R60.9 Edema, unspecified; E78.5 Hyperlipidemia, unspecified; C43.9 Malignant melanoma of skin, unspecified; C77.9 Secondary and unspecified malignant neoplasm of lymph node, unspecified; R26.89 Other abnormalities of gait and mobility; E22.2 Syndrome of inappropriate secretion of antidiuretic hormone; Z87.891 Personal history of nicotine dependence; Z79.899 Other long term (current) drug therapy; Z28.311 Partially vaccinated for COVID-19
CPT/HCPCS: 80048 ×3; 80053; 81000; 82947; 85025; 85027 ×2; 93005; 94760 ×2; 96361 ×2; 96372 ×3; 97110; 97162; 97166; 97530 ×2; 97535; 99283; G0378; 36415

== ENCOUNTER 2022-01-26 09:50 | Emergency (ER) | payer MEDICARE, BC ==
[~2022-01-26] VITALS: Ht 182.8 cm; Wt 86.1 kg
[~2022-01-26 09:50] MED LIST changes: +ACET-2267 PO; +MELA5TAB50 PO; +METF-478 PO; +ONDA8TAB13 SL; +OXYC5TAB PO; +POLY17PO54 PO
--- NOTE | 2022-01-26 10:32 | ED General ---
General Chief Complaint: General Problems/Pain Stated Complaint: CONSTIPATION Source of Information: Patient Exam Limitations: No Limitations History of Present Illness Date Seen by Provider: Jan 26, 2022 Time Seen by Provider: 10:20 Initial Comments Patient is an 86-year-old male who presents from [facility] chief complaint generalized weakness. It sounds like this has been coming on for weeks. He states that he would like to be able to get up and walk but he just has no energy. Generalized malaise, no fevers or chills, no sweating. He denies chest pain. He states he felt a little short of breath this morning. No nausea, vomiting or diarrhea. He does miranda with constipation and has [facility]. He denies abdominal pain. He is chronically incontinent but told the nurse that he is having a little dysuria. Has been treated for melanoma but is currently not undergoing chemotherapy. Did have a fall a couple of months ago and has basically been wheelchair/bedbound since. Does complain of some soreness to his bottom but it does not bother him much. This was looked at, no open wounds. Clinically his vital signs are stable. He has a very dry oral mucosa. Will obtain basic labs with a cath urine specimen for evaluation. Timing/Duration: Other (weeks) Allergies and Home Medications Allergies Coded Allergies: hydrocodone (Unverified Allergy, Mild, 03/22/07) amlodipine (Unverified Allergy, Unknown, 10/25/13) benazepril (Unverified Allergy, Unknown, 10/25/13) carbidopa (Unverified Allergy, Unknown, 05/18/21) codeine (Verified Allergy, Unknown, 09/02/05) levodopa (Unverified Allergy, Unknown, 05/18/21) telmisartan (Unverified Allergy, Unknown, 10/25/13) Patient Home Medication List Home Medication List Reviewed: Yes ALPRAZolam (ALPRAZolam) 0.25 Mg Tablet, 0.25 MG PO Q6H PRN for ANXIETY, (Reported) Entered as Reported by: FRANSISCA CAMEJO on 01/04/22 0989 Acetaminophen (Tylenol Extra Strength) 500 Mg Tablet, 500-1,000 MG PO Q8H PRN for PAIN-MILD (1-4), (Reported) Entered as Reported by: FRANSISCA CAMEJO on 01/04/22925 Aspirin (Aspirin EC) 81 Mg Tablet.dr, 81 MG PO HS, (Reported) Entered as Reported by: FRANSISCA CAMEJO on 01/04/22925 Docusate Sodium (Docusate Sodium) 100 Mg Capsule, 100 MG PO BID Prescribed by: MIRTHA DE on 01/05/22 1043 Furosemide (Furosemide) 20 Mg Tablet, 20 MG PO BID PRN for FLUID RETENTION, (Reported) Entered as Reported by: FRANSISCA CAMEJO on 01/04/22925 Guaifenesin/Dextromethorphan (Mucinex Dm ER 1,200-60 mg Tab) 1,200 Mg-60 Mg Tbmp.12hr, 1 EACH PO Q12H, (Reported) Entered as Reported by: FRANSISCA CAMEJO on 12/03/21 103 Hydralazine HCl (Hydralazine HCl) 25 Mg Tablet, 25 MG PO Q8H PRN for BLOOD PRESSURE, (Reported) Entered as Reported by: FRANSISCA CAMEJO on 01/04/22925 Hydralazine HCl (Hydralazine HCl) 50 Mg Tablet, 50 MG PO 0600,1400,2200, (Reported) Entered as Reported by: FRANSISCA CAMEJO on 01/04/22925 Melatonin (Melatonin) 5 Mg Tab.chew, 5-10 MG PO HS, (Reported) Entered as Reported by: FRANSISCA CAMEJO on 01/04/22925 Metformin HCl (Metformin HCl ER) 500 Mg Tab.er.24, 500 MG PO BIDAC, (Reported) Entered as Reported by: FRANSISCA CAMEJO on 01/04/22925 Ondansetron (Ondansetron Odt) 8 Mg Tab.rapdis, 8 MG SL Q6H PRN for NAUSEA/VOMITING-1ST LINE, (Reported) Entered as Reported by: FRANSISCA CAMEJO on 01/04/22925 Oxycodone HCl (Oxycodone HCl) 5 Mg Tablet, 5 MG PO Q4H PRN for PAIN-SEVERE (8- 10), (Reported) Entered as Reported by: FRANSISCA CAMEJO on 01/04/22925 Pantoprazole Sodium (Pantoprazole Sodium) 40 Mg Tablet.dr, 40 MG PO BIDAC, (Reported) Entered as Reported by: FRANSISCA CAMEJO on 01/04/22925 Polyethylene Glycol 3350 (Polyethylene Glycol 3350) 17 Gram Powd.pack, 17 GM PO BID Prescribed by: MIRTHA DE on 01/05/22 104 Potassium Chloride (K-Tab ER) 10 Meq Tablet.er, 10 MEQ PO BID PRN for WHEN A DOSE OF LASIX IS TAKEN, (Reported) Entered as Reported by: FRANSISCA CAMEJO on 01/04/22925 Propranolol HCl (Propranolol HCl ER) 60 Mg Cap.sa.24h, 60 MG PO BID, (Reported) Entered as Reported by: FRANSISCA CAMEJO on 01/04/22925 Ubidecarenone (Coq-10) 100 Mg Capsule, 100 MG PO DAILY, (Reported) Entered as Reported by: FRANSISCA CAMEJO on 01/04/22925 Review of Systems Review of Systems Constitutional: see HPI EENTM: no symptoms reported Respiratory: no symptoms reported Cardiovascular: no symptoms reported Gastrointestinal: abdominal pain, constipation Genitourinary: no symptoms reported Musculoskeletal: no symptoms reported Skin: no symptoms reported Psychiatric/Neurological: Weakness (generalized) All Other Systems Reviewed Negative Unless Noted: Yes Past Hgesrye-Xtuwak-Kdvyjp Hx Immunizations Up To Date First/Initial COVID19 Vaccinat: FEB 2020 Second COVID19 Vaccination Jose: APRIL 2020 Third COVID19 Vaccination Date: NOV 2020 Seasonal Allergies Seasonal Allergies: No Past Medical History Surgery/Hospitalization HX: melanoma, hernia x3, bilat cea, turp, ortho, niddm, htn, high lipids, TIA, DELERIUM, GERD, CAD, PARKINSONS, ANXIETY, PVD CABG Surgeries: Yes (MENISCUS REPAIR, TURP, HERNIA X3, bilateral ENDARTERECTOMY,2005) Abdominal, Cardiac, CABG, Orthopedic, Transurethral Resection, Vascular Surgery Respiratory: No Currently Using CPAP: No Currently Using BIPAP: No Cardiac: Yes (CABG X3 VESSELS;BILAT CAROTID ENDARTERECTOMY; RBBB) Chronic Edema/Swelling, Coronary Artery Disease, High Cholesterol, Hypertension, Peripheral Vascular Neurological: Yes (HYPERTENSIVE ENCEPHALOPATHY, ESSENTIAL TREMORS UPPER EXTREMITIES) Dementia, TIA Reproductive Disorders: No Sexually Transmitted Disease: No Genitourinary: Yes Benign Prostatic Hyperpl, Prostate Problems Gastrointestinal: Yes Abdominal Hernia, Gastroesophageal Reflux, Chronic Constipation Musculoskeletal: Yes (KNEE SURGERY; GENERALIZED WEAKNESS; FALLS; ) Arthritis Endocrine: Yes Diabetes, Non-Insulin dep HEENT: Yes Hearing Impairment: Hard of Hearing, Hearing Aide Right Cancer: Yes Skin, Melanoma Did You Recieve Any Treatments: Yes What Type of Treatment Did You: Chemotherapy, Surgical Intervention Psychosocial: Yes Sleep Difficulties, Anxiety Integumentary: Yes (MELANOMA ON BACK) Blood Disorders: No Family Medical History Heart Disease, Hypertension SOCIAL HISTORY: -NO SMOKING -RARE ALCOHOL USE -NO DRUG USE PAST SURGICAL HISTORY: -HERNIA REPAIR X 3 -TURP -KNEE SURGERY FOR TORN MENISCUS -BILATERAL CAROTID ENDARTERECTOMY 2006 -3-VESSEL CABG -REMOVAL OF MELANOMA OF BACK WITH LYMPH NODE BIOPSY RIGHT AXILLA 04/2021 -PORT RIGHT CHEST 04/2021 ADDITONAL PMH: -MULTIPLE EPISODES OF 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 0.0oz. 104.472243ex; 25.50 BMI Method: General Appearance: No Apparent Distress, WD/WN, Other (appears chronically ill) Eyes: Bilateral Eye Normal Inspection, Bilateral Eye PERRL, Bilateral Eye EOMI HEENT: PERRL/EOMI, Other (VERY DRY oral mucosa) Respiratory: Lungs Clear, Normal Breath Sounds, No Accessory Muscle Use, No Respiratory Distress Cardiovascular: Regular Rate, Rhythm, Normal Peripheral Pulses Gastrointestinal: Soft, Other (distended; Right side of abdomen feels full/firm. non tender. +BS (patient with recurrent constipation)) Extremity: Normal Range of Motion, Non Tender, No Calf Tenderness Neurologic/Psychiatric: Alert, Oriented x3, No Motor/Sensory Deficits, Normal Mood/Affect, steam drier tender II-XII Norm as Tested Skin: Warm/Dry, Pallor Progress/Results/Core Measures Suspected Sepsis SIRS Temperature: Pulse: Respiratory Rate: Laboratory Tests 01/26/22 10:25: White Blood Count 13.3H Blood Pressure / Mean: Laboratory Tests 01/26/22 10:25: Creatinine 2.04H, Platelet Count 270 Results/Orders Lab Results Laboratory Tests Test 01/26/22 10:25 01/26/22 11:20 01/26/22 11:21 Range/Units White Blood Count 13.3 H 4.3-11.0 10^3/uL Red Blood Count 3.92 L 4.30-5.52 10^6/uL Hemoglobin 12.4 L 13.3-17.7 g/dL Hematocrit 36 L 40-54 % Mean Corpuscular Volume 91 80-99 fL Mean Corpuscular Hemoglobin 32 25-34 pg Mean Corpuscular Hemoglobin Concent 35 32-36 g/dL Red Cell Distribution Width 14.6 H 10.0-14.5 % Platelet Count 270 130-400 10^3/uL Mean Platelet Volume 9.2 9.0-12.2 fL Immature Granulocyte % (Auto) 1 % Neutrophils (%) (Auto) 83 H 42-75 % Lymphocytes (%) (Auto) 8 L 12-44 % Monocytes (%) (Auto) 8 0-12 % Eosinophils (%) (Auto) 0 0-10 % Basophils (%) (Auto) 0 0-10 % Neutrophils # (Auto) 11.1 H 1.8-7.8 10^3/uL Lymphocytes # (Auto) 1.0 1.0-4.0 10^3/uL Monocytes # (Auto) 1.1 H 0.0-1.0 10^3/uL Eosinophils # (Auto) 0.0 0.0-0.3 10^3/uL Basophils # (Auto) 0.0 0.0-0.1 10^3/uL Immature Granulocyte # (Auto) 0.1 0.0-0.1 10^3/uL Sodium Level 132 L 135-145 MMOL/L Potassium Level 4.5 3.6-5.0 MMOL/L Chloride Level 98 98-107 MMOL/L Carbon Dioxide Level 22 21-32 MMOL/L Anion Gap 12 5-14 MMOL/L Blood Urea Nitrogen 43 H 7-18 MG/DL Creatinine 2.04 H 0.60-1.30 MG/DL Estimat Glomerular Filtration Rate 31 BUN/Creatinine Ratio 21 Glucose Level 103 70-105 MG/DL Calcium Level 8.9 8.5-10.1 MG/DL Urine Color YELLOW Urine Clarity CLEAR Urine pH 5.5 5-9 Urine Specific Perry 1.015 L 1.016-1.022 Urine Protein NEGATIVE NEGATIVE Urine Glucose (UA) NEGATIVE NEGATIVE Urine Ketones NEGATIVE NEGATIVE Urine Nitrite NEGATIVE NEGATIVE Urine Bilirubin NEGATIVE NEGATIVE Urine Urobilinogen 0.2 < = 1.0 MG/DL Urine Leukocyte Esterase TRACE H NEGATIVE Urine RBC (Auto) NEGATIVE NEGATIVE Urine RBC 0-2 /HPF Urine WBC 2-5 /HPF Urine Crystals NONE /LPF Urine Bacteria FEW H /HPF Urine Casts NONE /LPF Urine Mucus NEGATIVE /LPF Urine Culture Indicated YES Influenza Type A (RT-PCR) Not Detected Not Detecte Influenza Type B (RT-PCR) Not Detected Not Detecte SARS-CoV-2 RNA (RT-PCR) Not Detected Not Detecte My Orders Orders - RAJ HENRY MD Ed Iv/Invasive Line Start (01/26/22 10:32) Cbc With Automated Diff (01/26/22 10:32) Basic Metabolic Panel (01/26/22 10:32) Ua Culture If Indicated (01/26/22 10:32) Lidocaine 2% (Urojet) (Xylocaine Urojet) (01/26/22 10:45) Ns Iv 1000 Ml (Sodium Chloride 0.9%) (01/26/22 10:45) Covid 19 Inhouse Test (01/26/22 11:08) Influenza A And B By Pcr (01/26/22 11:08) Isolation Central Supply Req (01/26/22 11:08) Chest 1 View, Ap/Pa Only (01/26/22 11:08) Urine Culture (01/26/22 11:20) Ns Iv 1000 Ml (Sodium Chloride 0.9%) (01/26/22 12:30) Ed Admission (Communication) (01/26/22 12:38) Ns Iv 1000 Ml (Sodium Chloride 0.9%) (01/26/22 12:38) Chief Mechanical Engineer Consult (01/26/22 13:13) Medications Given in ED Vital Signs/I&O 01/26/22 01/26/22 01/26/22 09:57 09:57 13:45 Temp 36.0 Pulse 84 56 Resp 18 18 B/P (MAP) 131/74 (93) 185/93 Pulse Ox 99 98 O2 Delivery Room Air Room Air Capillary Refill : Progress Note #1: Time: 12:36 Progress Note Patient seen and evaluated, 86-year-old with a history of melanoma recently on chemotherapy, Keytruda and recent hospitalization for severe constipation at the beginning of December. Patient was placed at [facility] for penitentiary. He states that they have not been doing his bowel program as they should. He is generally weak, he is a little nauseous. He has not been able to get up and get around. He denies pain, shortness of breath, fever. Evaluation today includes basic labs, COVID flu testing. He is found to have acute kidney injury with an elevated BUN and creatinine above his baseline of 0.6. He is given fluids in the ED, 2 L of normal saline. Appears very dry on physical examination with poor skin turgor and dry oral mucosa. Due to age, chronic illness and generalized deconditioning I think he is a poor candidate to [facility] at the [facility]. Discussed with Dr. Brown who accepts the patient for observation admission to the medical floor for acute kidney injury, dehydration and constipation. Progress Note #2: Time: 13:02 Progress Note discussed with patient's - she states the Village was concerned about a mass in his abdomen. He has no pain in this are - I did feel fullness/distension in the right side. SHe states they felt as if he needed a CT of his abdomen and pelvis. She is concerned about a recurrence of his melanoma,. He had a full body PET at the end of October which showed no hypermetabolic activity. SHe also tells me she cannot get him to drink anything. He has an appointment with his oncologist next week. She is also very concerned about the cost of ambulance transfer to [place], as Dr Brown states that she will take him over there due to bed capacity here at [facility]. Progress Note #3: Time: 13:11 Progress Note Patient's discussed plan of care with Dr Brown - change in plans - would like to enroll patient in comfort care/hospice. Will discontinue fluids and talk to case management social worker - anticipate consultation with [facility] and discharge back to [facility]. Diagnostic Imaging Diagonstic Imaging: Xray Plain Films/CT/US/NM/MRI: chest Comments [facility], [place] NAME: ARIANNE BAUER [facility] REC#: [id number] PT STATUS: REG ER : 1935 PHYSICIAN: RAJ HENRY MD ADMIT DATE: 01/26/22/ER Signed Date of Exam:01/26/22 CHEST 1 VIEW, AP/PA ONLY INDICATION: Weakness. COMPARISON: 12/04/2021. FINDINGS: Portable chest. The lungs are well aerated and clear. The heart is not enlarged. Median sternotomy changes are present. Port-A-Cath on the right remains in good position. No pneumothorax or pleural effusion. IMPRESSION: Postsurgical changes with no acute abnormalities. Dictated by: Dictated on workstation # [id number] Dict: 01/26/22 1140 Trans: 01/26/22 1152 [id number] Interpreted by: ABDULLAHI RODRIGUEZ MD Electronically signed by: ABDULLAHI RODRIGUEZ MD 01/26/22 1152 Departure Communication (Admissions) l Impression Primary Impression: Acute kidney injury Additional Impressions: Dehydration Generalized weakness Constipation Qualified Codes: K59.00 - Constipation, unspecified Disposition: HOME, SELF-CARE Condition: Stable Departure-Patient Inst. Decision time for Depature: 13:12 Referrals: [facility] (PCP/Family) Primary Care Physician Patient Instructions: Weakness ED Add. Discharge Instructions: We are discharging back to [facility]. Hospice to take over care. RAJ HENRY MD Jan 26, 2022 10:32
[2022-01-26 10:39] LABS: BASOPHILS % (AUTO) 0 % (0-10); EOSINOPHILS % (AUTO) 0 % (0-10); HEMATOCRIT 36 % (40-54); HEMOGLOBIN 12.4 g/dL (13.3-17.7); LYMPHOCYTES % (AUTO) 8 % (12-44); MEAN CORPUSCULAR HEMOGLOBIN 32 pg (25-34); MEAN CORPUSCULAR HGB CONC 35 g/dL (32-36); MEAN CORPUSCULAR VOLUME 91 fL (80-99); MEAN PLATELET VOLUME 9.2 fL (9.0-12.2); MONOCYTES # (AUTO) 1.1 10^3/uL (0.0-1.0); MONOCYTES % (AUTO) 8 % (0-12); NEUTROPHILS # (AUTO) 11.1 10^3/uL (1.8-7.8); NEUTROPHILS % (AUTO) 83 % (42-75); PLATELET COUNT 270 10^3/uL (130-400); WHITE BLOOD COUNT 13.3 10^3/uL (4.3-11.0)
[2022-01-26] MEDS ORDERED: NS IV 1000 ML 1,000 ML IV SCH ×2 (10:45→12:30)
[2022-01-26] MEDS ORDERED: LIDOCAINE UROJET 2% GEL 10 ML PKG TOP ONE (10:45)
[2022-01-26 11:05] LABS: CALCIUM 8.9 MG/DL (8.5-10.1); CREATININE SERUM 2.04 MG/DL (0.60-1.30); POTASSIUM 4.5 MMOL/L (3.6-5.0)
[2022-01-26 11:29] LABS: BILIRUBIN,URINE NEGATIVE (NEGATIVE); CLARITY,URINE CLEAR; COLOR,URINE YELLOW; GLUCOSE, URINE (UA) NEGATIVE (NEGATIVE); KETONES,URINE NEGATIVE (NEGATIVE); LEUKOCYTE ESTERASE ,URINE TRACE (NEGATIVE); NITRITE,URINE NEGATIVE (NEGATIVE); PH,URINE 5.5 (5-9); PROTEIN,URINE NEGATIVE (NEGATIVE)
[2022-01-26 11:36] LABS: BACTERIA,URINE FEW /HPF; RBC,URINE 0-2 /HPF
--- NOTE | 2022-01-26 11:45 | Diagnostic Imaging Report ---
INDICATION: Weakness. COMPARISON: 12/04/2021. FINDINGS: Portable chest. The lungs are well aerated and clear. The heart is not enlarged. Median sternotomy changes are present. Port-A-Cath on the right remains in good position. No pneumothorax or pleural effusion. IMPRESSION: Postsurgical changes with no acute abnormalities. Dictated by: Dictated on workstation # [id number]
[2022-01-26] MEDS ORDERED: NS IV 1000 ML 1,000 ML IV STA (12:38)
--- NOTE | 2022-01-26 12:43 | History & Physical-Hospitalist ---
History of Present Illness Date Seen 01/26/22 Attending Physician [place] [facility] PCP Admitting Physician: Attending Physician: Referring Physician Date of Admission Home Medications & Allergies Home Medications Reviewed patient Home Medication Reconciliation performed by pharmacy medication reconciliations earth science laboratory technician and/or nursing. Patients Allergies have been reviewed. Allergies Allergies Coded Allergies hydrocodone (Unverified Allergy, Mild, 03/22/07) amlodipine (Unverified Allergy, Unknown, 10/25/13) benazepril (Unverified Allergy, Unknown, 10/25/13) carbidopa (Unverified Allergy, Unknown, 05/18/21) codeine (Verified Allergy, Unknown, 09/02/05) levodopa (Unverified Allergy, Unknown, 05/18/21) telmisartan (Unverified Allergy, Unknown, 10/25/13) Past Pluyajo-Axcilo-Tminhu Hx Patient Social History Tobacco Use?: No Use of E-Cig and/or Vaping dev: No Substance use?: No Alcohol Use?: No Pt feels they are or have been: No Immunizations Up To Date Date of Influenza Vaccine: Nov 27, 2020 First/Initial COVID19 Vaccinat: FEB 2020 Second COVID19 Vaccination Jose: APRIL 2020 Tetanus Booster (TDap): Unknown Hepatitis A: No Hepatitis B: No Date of Pneumonia Vaccine: July 02, 2009 Seasonal Allergies Seasonal Allergies: No Current Status Communicates: Verbally Primary Language: Guyanese Preferred Spoken Language: Guyanese Past Medical History Surgeries: Abdominal, Cardiac, CABG, Orthopedic, Transurethral Resection, Vascular Surgery Currently Using CPAP: No Currently Using BIPAP: No Chronic Edema/Swelling, Coronary Artery Disease, High Cholesterol, Hypertension, Peripheral Vascular Dementia, TIA Sexually Transmitted Disease: No Benign Prostatic Hyperpl, Prostate Problems Abdominal Hernia, Gastroesophageal Reflux, Chronic Constipation Arthritis Diabetes, Non-Insulin dep Hearing Impairment: Hard of Hearing, Hearing Aide Right Skin, Melanoma Did You Recieve Any Treatments: Yes What Type of Treatment Did You: Chemotherapy, Surgical Intervention Sleep Difficulties, Anxiety Blood Disorders: No Family Medical History Heart Disease, Hypertension SOCIAL HISTORY: -NO SMOKING -RARE ALCOHOL USE -NO DRUG USE PAST SURGICAL HISTORY: -HERNIA REPAIR X 3 -TURP -KNEE SURGERY FOR TORN MENISCUS -BILATERAL CAROTID ENDARTERECTOMY 2005 -3-VESSEL CABG -REMOVAL OF MELANOMA OF BACK WITH LYMPH NODE BIOPSY RIGHT AXILLA 04/2021 -PORT RIGHT CHEST 04/2021 ADDITONAL PMH: -MULTIPLE EPISODES OF 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 0.0oz. 104.389739uq; 25.00 BMI Method: Results Results/Procedures Labs Laboratory Tests 01/26/22 10:25 Patient resulted labs reviewed. MALIHA BENÍTEZ DO Jan 26, 2022 12:43
[2022-01-26 13:45] VITALS: BP 185/93
== END 2022-01-26 14:05 | disposition home or self-care (01) ==
LOC: EDUNIT# 09:50 → ER 09:51
DX: N17.9 Acute kidney failure, unspecified (principal); E86.0 Dehydration; K59.00 Constipation, unspecified; Z85.820 Personal history of malignant melanoma of skin; Z92.21 Personal history of antineoplastic chemotherapy; Z87.448 Personal history of other diseases of urinary system; Z87.19 Personal history of other diseases of the digestive system; Z98.890 Other specified postprocedural states; Z28.310 Unvaccinated for COVID-19; Z20.822 Contact with and (suspected) exposure to COVID-19
CPT/HCPCS: 36415; 71045; 80048; 81000; 85025; 87077; 87088; 87636